=== PATIENT | female | born 1960 | race Caucasian/White ===

== ENCOUNTER 2017-04-04 16:14 | Observation (INO) | payer MEDICAID, SELFPAY ==
[2017-04-04] VITALS (9 sets, daily range): BP systolic 111–145; BP diastolic 66–91; PULSE 53–69; RESP 12–18; TEMP 36.5–36.7; O2SAT 97–98; BMI 29.6; BMI 29.5
--- NOTE | 2017-04-04 16:37 | CT_ITS ---
STUDY: CT BRAIN WITHOUT CONTRAST REASON FOR EXAM: Female, 56 years old. Intermittent visual disturbances RADIATION DOSAGE (If Supplied By Facility): CTDIvol = ( 44.99 ) mGy, DLP = ( 812.98 ) mGycm TECHNIQUE: Transaxial CT imaging of the brain was performed without administration of intravenous contrast material. Individualized dose optimization techniques were used for this CT. COMPARISON: None. FINDINGS: Normal soft tissue structures. Normal calvarium. Normal size ventricles and extra-axial spaces for the patient's age. Normal white matter tracts of the cerebral hemispheres. Normal basal ganglia and thalami. Normal brainstem. Normal cerebellum. There is no intracranial hemorrhage. There are no findings of an acute ischemic infarction. Normal visualized paranasal sinuses. CT/Brain/Head without Contrast IMPRESSION: Normal unenhanced CT scan of the brain. Electronically Signed: Chava Shoemaker DO at 17:24 EST Tel , Service support ,
--- NOTE | 2017-04-04 16:37 | EKG12_ITS ---
Test Reason : VISION CHANGES Blood Pressure : / mmHG Vent. Rate : 059 BPM Atrial Rate : 059 BPM P-R Int : 162 ms QRS Dur : 088 ms QT Int : 424 ms P-R-T Axes : 015 020 030 degrees QTc Int : 419 ms Sinus bradycardia Otherwise normal ECG Confirmed by LOUISE WINTERS MD ([id number]), editorial manager ALBERTO LEON ([id number] on 04/07/2017 8:41:59 AM Referred By: VICTOR M Confirmed By:LOUISE WINTERS MD
--- NOTE | 2017-04-04 16:52 | NURSING ---
NO OLD EKGS
[2017-04-04 17:01] LABS: Absolute Neutrophil Count 4.4 X10^3/uL (2.0-7.7); Basophil# 0.05 X10^3/uL; Basophil% 0.6 % (0-1); Eosinophil# 0.26 X10^3/uL; Eosinophils% 2.9 % (0-5); Hematocrit 42.5 % (37-47); Hemoglobin 15.2 g/dl (12.0-15.0); Lymphocyte % 42.2 % (19-41); Mean Corp Hgb Conc 35.8 g/gl (32-36); Mean Corpuscular Hgb 29.1 pg (27.0-32.0); Mean Corpuscular Volume 81.3 fL (81-99); Mean Platelet Vol. 9.6 fl (6.2-12.0); Monocyte# 0.52 X10^3/uL; Monocyte% 5.8 % (0-10); Neutrophil # 4.36 X10^3/uL (2.7-7.7); Neutrophil % 48.3 % (47-70); Platelet Count 243 K/mm3 (150-450); RBC Distribution Width CV 13.5 % (11.6-14.6); RBC Distribution Width SD 39.7 fl (35.1-43.9); Red Blood Count 5.23 M/mm3 (4.2-5.4)
[2017-04-04 17:09] LABS: POSITIVE COUNT NO; POSITIVE DIFFERENTIAL NO; POSITIVE MORPHOLOGY NO
--- NOTE | 2017-04-04 17:10 | RAD_ITS ---
STUDY: X-RAY CHEST REASON FOR EXAM: Female, 56 years old. Visual disturbances intermittently TECHNIQUE: Single AP portable view of the chest. COMPARISON: None. FINDINGS: The lungs are clear and expanded. There is no demonstrated pleural abnormality. Normal size heart. Normal mediastinum and dwaine. Normal visualized pulmonary arteries. Normal visualized aortic arch and descending thoracic aorta. Normal visualized thoracic spine. Normal visualized ribs, clavicles, and shoulders. There is no demonstrated abnormality of the visualized soft tissue structures of the upper abdomen. RAD/Chest 1 View IMPRESSION: Normal x-ray examination of the chest. Electronically Signed: Chava Shoemaker DO at 17:23 EST Tel , Service support ,
[2017-04-04 17:17] LABS: Prothrombin Time (Protime)PT. 13.1 SECONDS (11.7-14.9)
[2017-04-04 17:18] LABS: Partial Thromboplast Time 26.8 Seconds (24.1-36.2)
[2017-04-04 17:33] LABS: Anion Gap 6 (5-15); BUN 23 mg/dL (7-18); BUN/Creat Ratio 45.2 RATIO (10-20); Calcium,Total 9.1 mg/dL (8.5-10.1); Chloride 103 mmol/L (98-107); Creatinine, Serum 0.51 mg/dL (0.55-1.02); EST Glomerular Filtration Rate 132 mL/min (>60); Est Glom Filt Rate - Afr Amer 160 mL/min (>60); Estimated Creatinine Clearance 121.29 ml/min; Glucose 112 mg/dL (74-106); Potassium 3.8 mmol/L (3.5-5.1); Sodium Level 139 mmol/L (136-145)
--- NOTE | 2017-04-04 17:38 | ED.VISSUMM ---
- ER Visit Summary Date of Service: 04/04/17 Chief Complaint: Vision changes History of Present Illness: The patient is a 56 F who presents with transient intermittent visual changes. Her symptoms began this morning. Initially she had blurry vision in her left eye and then what she describes as a curtain or wall of santizo. This initially lasted about 3-4 hours. She did see her crate opener. She was told that she had some hemorrhages in the back of her eye but no clot. She does report she has a history of a clot in the eye. She denies history of stroke or myocardial infarction. She is not anticoagulated. He denies any other neurological symptoms such as weakness speech difficulty or numbness. He was scheduled for outpatient workup including carotid ultrasounds but has had 4 episodes of her left eye visual changes since leaving the crate opener's office was concerned to presented here. Physical Examination: Afebrile vitals are stable Moist mucous membranes Heart regular rate and rhythm Lungs are clear to auscultation Abdomen soft Alert and oriented with no focal or lateralizing neurological deficits, NIH stroke scale is 0 no visual field cut or visual changes at the time of examination Test Results: EKG shows sinus rhythm at a rate of 59. Chest x-ray and CT of the head are normal. CBC BMP INR troponin all normal. Emergency Department Course and Treatment: Patient's workup is unremarkable here however she does not describe classic symptoms of amaurosis fugax. I do believe she will require further workup. Given multiple episodes today I felt hospitalization most appropriate. Treatment Plan: [] Disposition: Admit Impression: Amaurosis fugax This note was generated with [employer] dictation software. It may contain incorrect words, spelling, and punctuation that were not noted in review of the chart prior to signing ED Disposition - Plan for ED Patient: Chief Complaint: Vision Prob Referrals: Carmen Myers, CAM-C [Primary Care Provider] -
--- NOTE | 2017-04-04 17:41 | ED.DCSUM_ITS ---
- ER Visit Summary Date of Service: 04/04/17 Chief Complaint: Vision changes History of Present Illness: The patient is a 56 F who presents with transient intermittent visual changes. Her symptoms began this morning. Initially she had blurry vision in her left eye and then what she describes as a curtain or wall of santizo. This initially lasted about 3-4 hours. She did see her sfdc architect. She was told that she had some hemorrhages in the back of her eye but no clot. She does report she has a history of a clot in the eye. She denies history of stroke or myocardial infarction. She is not anticoagulated. He denies any other neurological symptoms such as weakness speech difficulty or numbness. He was scheduled for outpatient workup including carotid ultrasounds but has had 4 episodes of her left eye visual changes since leaving the sfdc architect's office was concerned to presented here. Physical Examination: Afebrile vitals are stable Moist mucous membranes Heart regular rate and rhythm Lungs are clear to auscultation Abdomen soft Alert and oriented with no focal or lateralizing neurological deficits, NIH stroke scale is 0 no visual field cut or visual changes at the time of examination Test Results: EKG shows sinus rhythm at a rate of 59. Chest x-ray and CT of the head are normal. CBC BMP INR troponin all normal. Emergency Department Course and Treatment: Patient's workup is unremarkable here however she does not describe classic symptoms of amaurosis fugax. I do believe she will require further workup. Given multiple episodes today I felt hospitalization most appropriate. Treatment Plan: [] Disposition: Admit Impression: Amaurosis fugax This note was generated with [employer] dictation software. It may contain incorrect words, spelling, and punctuation that were not noted in review of the chart prior to signing ED Disposition - Plan for ED Patient: Chief Complaint: Vision Prob Referrals: Carmen Myers, CAM-C [Primary Care Provider] -
--- NOTE | 2017-04-04 18:48 | PCM.HP.STD ---
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 (3) Intravascular volume depletion Status: Acute (4) Pyelonephritis Status: Resolved (5) BMI greater than 40 Status: Resolved (6) DM2 (diabetes mellitus, type 2) Status: Chronic (7) Dyslipidemia Status: Chronic (8) Essential hypertension Status: Chronic History of Present Illness Date of Admission: 04/04/17 Chief Complaint: Transient but recurrent loss of vision left eye The patient is a 56 year old F with a past medical history of diabetes mellitus type 2, hypertension, hyperlipidemia and a remote occlusion of the left retinal artery who presented to the emergency room at [facility] on 04/04/2017 complaining of loss of vision in the left eye. She first noticed this on the day of admission. Her left eye suddenly became blurry and santizo. She could see light and dark. She was seen by her spare parts clerk in [place] and was told she had a few small spots of hemorrhage but she could find nothing else wrong. Her plan was to obtain carotid studies as an outpatient. Her vision had cleared at the spare parts clerk office and she went home. Once again she experienced a santizo curtain in front of her left eye and this lasts for approximately 1 hour at a time. In the emergency room her vision is clear. She denies any history of atrial fibrillation and also denies any history of hypercoagulable disorders. She has never had a DVT or PE. There is no family history of hypercoagulable disorders. She is para 9 8 with 1 miscarriage. She has had 8 C-sections. She denies headache and also denies any history of migraines in the past. CT brain was unremarkable. Chest x-ray showed no pulmonary vascular congestion, pleural effusions or infiltrates. There were no nodules or masses. Vital signs at presentation to the emergency room are temperature 97.7, pulse rate 69, blood pressure 145/91, respiratory rate 16 and she is 98% saturated on room air. Hemoglobin was mildly increased at 15.2 and the BUN was 23 with a creatinine of 0.51. Troponin was less than 0.02 and the EKG had normal sinus rhythm with no significant ST or T-wave changes. She was admitted to a monitored bed on PCU with a diagnosis of amaurosis fugax. Past Medical History Past Medical History (Chronic Problems): Chronic Problems Essential hypertension (Chronic) Dyslipidemia (Chronic) DM2 (diabetes mellitus, type 2) (Chronic) Allergies morphine Allergy (Verified 04/04/17 16:15) Chest tightness codeine Adverse Reaction (Verified 04/04/17 16:15) Vomiting Home Medications: Ambulatory Orders Medication Instructions Recorded Metoprolol Tartrate [Lopressor 25 mg PO DAILY 05/28/13 (beta eladio)] Pravastatin [Pravachol] 40 mg PO DAILY 05/28/13 Ergocalciferol [Vitamin D] 5,000 unit PO DAILY 08/19/13 Glipizide [Glipizide ER] 2.5 mg PO DAILY 04/04/17 Surgical History: cholecystectomy, - - 8 C-sections Psychiatric History: No pertinent psych hx 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 Denies: Double vision HEENT: Reports: - - No jaw claudication. Denies: Difficulty Hearing, Difficulty Swallowing, Eye Pain, Head Aches, Sinus Congestion, Sinus Drainage Cardiovascular: Denies: Chest Pain, Light Headedness, Orthopnea, Palpitations, Paroxysmal Noc. Dyspnea, Syncope Respiratory: Denies: Cough, Shortness of breath at rest, Sputum production Gastrointestinal: Denies: Abdominal Pain, Nausea, Vomiting Genitourinary: Denies: Dysuria Musculoskeletal: Denies: Joint Pain, Joint Tenderness Skin: Denies: Jaundice, Rash, Wounds Neurological: Reports: Blurred vision, - - No history of migraine cephalgia, no photophobia. Denies: Balance problems, Double vision, Change in Speech, Slurred speech, Confusion, Focal weakness, Tremor, Seizures Psychiatric: Denies: Anxiety, Depression, Homicidal Ideations, Suicidal Ideations Endocrine: Reports: Change in Body Habitus - She has lost 90 lbs in the past couple years - intentional Hematologic/ Lymphatic: Denies: Hx of blood clot VTE Information - Inpt Only VTE Present on Admission: No VTE Mechan Device Prophylaxis: None VTE Pharm Prophylaxis ordered?: No Reason prophylaxis not ordered:: Treatment Not Indicated Patient Problems: Active and Suspected Problems Amaurosis fugax of left eye (Acute) Intravascular volume depletion (Acute) - Physical Exam General: Alert, Oriented x3, Cooperative, No apparent distress, Well developed, Well nourished HEENT: Atraumatic, PERRLA, EOMI, Normocephalic Oral: Dry Mucosa Neck: Supple, No JVD, Negative Carotid Bruits, No Nodes, No Nuchal Rigidity, Trachea Midline, Thyroid Normal Size and Texture Lungs: Clear to auscultation, Normal air movement, No rhonchi, No wheeze, No rales Cardiovascular: Regular rate, Regular Rhythm, Normal S1, Normal S2, No murmurs, No Ectopic Activity, No rub noted, No Gallop Abdomen: Bowel Sounds Present, Soft, Non Tender, Non-Distended Extremities: No clubbing, No cyanosis, No edema, No Calf Tenderness, Peripheral Pulses Normal Skin: No rashes, No breakdown Musculoskeletal: No Muscle Wasting Neurological: Cranial nerves II-XII grossly intact, Neuro grossly intact Psych/Mental Status: Normal Affect, Appropriate Vital Signs Temp Pulse Resp BP Pulse Ox 97.7 F L 68 14 127/82 H 97 04/04/17 16:14 04/04/17 18:25 04/04/17 18:25 04/04/17 18:25 04/04/17 18:25 Oxygen Delivery Method Room Air Weight: 195 lb 1.745 oz Body Mass Index (BMI) 29.6 Laboratory Tests Past 24 Hrs 04/04/17 04/04/17 04/04/17 16:50 16:50 16:50 WBC 9.0 RBC 5.23 Hgb 15.2 H Hct 42.5 MCV 81.3 MCH 29.1 MCHC 35.8 RDW 13.5 RDW Differential 39.7 Plt Count 243 MPV 9.6 Immature Gran % (Auto) 0.200 Neut % (Auto) 48.3 Lymph % (Auto) 42.2 H [place] % (Auto) 5.8 Eos % (Auto) 2.9 Baso % (Auto) 0.6 Absolute Neuts (auto) 4.4 Absolute Lymphs (auto) 3.80 Total Counted Not Reportable PT 13.1 INR 1.0 APTT 26.8 Sodium 139 Potassium 3.8 Chloride 103 Carbon Dioxide 30.0 Anion Gap 6 BUN 23 H Creatinine 0.51 L Estim Creat Clear Calc 121.29 Est GFR (MDRD) Af Amer 160 Est GFR (MDRD) Non-Af 132 BUN/Creatinine Ratio 45.2 H Glucose 112 H Calcium 9.1 Troponin I < 0.02 Assessment/Plan Active and Suspected Problems Amaurosis fugax of left eye (Acute) Intravascular volume depletion (Acute) Impressions 1. Amaurosis fugax 2. Intravascular volume depletion with an elevated BUN/creatinine ratio of 45.2 3. Diabetes mellitus type 2 4. Hypertension 5. Hyperlipidemia CTA of the brain and neck now MRI of the brain in the AM ASA 81 mg daily HGBA1C Lipid panel in the AM Admitted to a monitored bed on PCU ECHO consult Dr. Maxwell ESR Hydrate recheck the lab in the AM Code Visit OBSV E&M: 71017 Initial observation care L3
--- NOTE | 2017-04-04 18:59 | HP.PCM_ITS ---
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 on 2017 complaining of loss of vision in the left eye. She first noticed this on the day of admission. Her left eye suddenly became blurry and santizo. She could see light and dark. She was seen by her macroeconomics professor in [place] and was told she had a few small spots of hemorrhage but she could find nothing else wrong. Her plan was to obtain carotid studies as an outpatient. Her vision had cleared at the macroeconomics professor office and she went home. Once again she experienced a santizo curtain in front of her left eye and this lasts for approximately 1 hour at a time. In the emergency room her vision is clear. She denies any history of atrial fibrillation and also denies any history of hypercoagulable disorders. She has never had a DVT or PE. There is no family history of hypercoagulable disorders. She is para 9 8 with 1 miscarriage. She has had 8 C-sections. She denies headache and also denies any history of migraines in the past. CT brain was unremarkable. Chest x-ray showed no pulmonary vascular congestion, pleural effusions or infiltrates. There were no nodules or masses. Vital signs at presentation to the emergency room are temperature 97.7, pulse rate 69, blood pressure 145/91, respiratory rate 16 and she is 98% saturated on room air. Hemoglobin was mildly increased at 15.2 and the BUN was 23 with a creatinine of 0.51. Troponin was less than 0.02 and the EKG had normal sinus rhythm with no significant ST or T-wave changes. She was admitted to a monitored bed on PCU with a diagnosis of amaurosis fugax. Past Medical History Past Medical History (Chronic Problems): Chronic Problems Essential hypertension (Chronic) Dyslipidemia (Chronic) DM2 (diabetes mellitus, type 2) (Chronic) Allergies morphine Allergy (Verified 04/04/17 16:15) Chest tightness codeine Adverse Reaction (Verified 04/04/17 16:15) Vomiting Home Medications: Ambulatory Orders Medication Instructions Recorded Metoprolol Tartrate [Lopressor 25 mg PO DAILY 05/28/13 (beta eladio)] Pravastatin [Pravachol] 40 mg PO DAILY 05/28/13 Ergocalciferol [Vitamin D] 5,000 unit PO DAILY 08/19/13 Glipizide [Glipizide ER] 2.5 mg PO DAILY 04/04/17 Surgical History: cholecystectomy, - - 8 C-sections Psychiatric History: No pertinent psych hx 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 Denies: Double vision HEENT: Reports: - - No jaw claudication. Denies: Difficulty Hearing, Difficulty Swallowing, Eye Pain, Head Aches, Sinus Congestion, Sinus Drainage Cardiovascular: Denies: Chest Pain, Light Headedness, Orthopnea, Palpitations, Paroxysmal Noc. Dyspnea, Syncope Respiratory: Denies: Cough, Shortness of breath at rest, Sputum production Gastrointestinal: Denies: Abdominal Pain, Nausea, Vomiting Genitourinary: Denies: Dysuria Musculoskeletal: Denies: Joint Pain, Joint Tenderness Skin: Denies: Jaundice, Rash, Wounds Neurological: Reports: Blurred vision, - - No history of migraine cephalgia, no photophobia. Denies: Balance problems, Double vision, Change in Speech, Slurred speech, Confusion, Focal weakness, Tremor, Seizures Psychiatric: Denies: Anxiety, Depression, Homicidal Ideations, Suicidal Ideations Endocrine: Reports: Change in Body Habitus - She has lost 90 lbs in the past couple years - intentional Hematologic/ Lymphatic: Denies: Hx of blood clot VTE Information - Inpt Only VTE Present on Admission: No VTE Mechan Device Prophylaxis: None VTE Pharm Prophylaxis ordered?: No Reason prophylaxis not ordered:: Treatment Not Indicated Patient Problems: Active and Suspected Problems Amaurosis fugax of left eye (Acute) Intravascular volume depletion (Acute) - Physical Exam General: Alert, Oriented x3, Cooperative, No apparent distress, Well developed, Well nourished HEENT: Atraumatic, PERRLA, EOMI, Normocephalic Oral: Dry Mucosa Neck: Supple, No JVD, Negative Carotid Bruits, No Nodes, No Nuchal Rigidity, Trachea Midline, Thyroid Normal Size and Texture Lungs: Clear to auscultation, Normal air movement, No rhonchi, No wheeze, No rales Cardiovascular: Regular rate, Regular Rhythm, Normal S1, Normal S2, No murmurs, No Ectopic Activity, No rub noted, No Gallop Abdomen: Bowel Sounds Present, Soft, Non Tender, Non-Distended Extremities: No clubbing, No cyanosis, No edema, No Calf Tenderness, Peripheral Pulses Normal Skin: No rashes, No breakdown Musculoskeletal: No Muscle Wasting Neurological: Cranial nerves II-XII grossly intact, Neuro grossly intact Psych/Mental Status: Normal Affect, Appropriate Vital Signs Temp Pulse Resp BP Pulse Ox 97.7 F L 68 14 127/82 H 97 04/04/17 16:14 04/04/17 18:25 04/04/17 18:25 04/04/17 18:25 04/04/17 18:25 Oxygen Delivery Method Room Air Weight: 195 lb 1.745 oz Body Mass Index (BMI) 29.6 Laboratory Tests Past 24 Hrs 04/04/17 04/04/17 04/04/17 16:50 16:50 16:50 WBC 9.0 RBC 5.23 Hgb 15.2 H Hct 42.5 MCV 81.3 MCH 29.1 MCHC 35.8 RDW 13.5 RDW Differential 39.7 Plt Count 243 MPV 9.6 Immature Gran % (Auto) 0.200 Neut % (Auto) 48.3 Lymph % (Auto) 42.2 H [place] % (Auto) 5.8 Eos % (Auto) 2.9 Baso % (Auto) 0.6 Absolute Neuts (auto) 4.4 Absolute Lymphs (auto) 3.80 Total Counted Not Reportable PT 13.1 INR 1.0 APTT 26.8 Sodium 139 Potassium 3.8 Chloride 103 Carbon Dioxide 30.0 Anion Gap 6 BUN 23 H Creatinine 0.51 L Estim Creat Clear Calc 121.29 Est GFR (MDRD) Af Amer 160 Est GFR (MDRD) Non-Af 132 BUN/Creatinine Ratio 45.2 H Glucose 112 H Calcium 9.1 Troponin I < 0.02 Assessment/Plan Active and Suspected Problems Amaurosis fugax of left eye (Acute) Intravascular volume depletion (Acute) Impressions 1. Amaurosis fugax 2. Intravascular volume depletion with an elevated BUN/creatinine ratio of 45.2 3. Diabetes mellitus type 2 4. Hypertension 5. Hyperlipidemia CTA of the brain and neck now MRI of the brain in the AM ASA 81 mg daily HGBA1C Lipid panel in the AM Admitted to a monitored bed on PCU ECHO consult Dr. Maxwell ESR Hydrate recheck the lab in the AM Code Visit OBSV E&M: [id number] Initial observation care L3
[2017-04-04] MEDS: 0.9% Normal Saline 1,000 ML 999 ML IV ×2 (19:01→20:24)
--- NOTE | 2017-04-04 19:46 | CT_ITS ---
STUDY: CTA OF THE NECK REASON FOR EXAM: Female, 56 years old. Amaurosis fugax RADIATION DOSAGE (If Supplied By Facility): CTDIvol = ( 24.91 ) mGy, DLP = ( 12.46 ) mGycm TECHNIQUE: CT angiography was performed with a multi-detector CT scanner. Data acquisition was obtained from the skull base through the vertex following intravenous administration of 75 ml of [id number]-370. MIP images were reconstructed from the axial data set. Post-processing of the angiographic images was performed, with multiplanar reformation and 3D reconstruction. Individualized dose optimization techniques were used for this CT. COMPARISON: None FINDINGS: The left subclavian artery, the left common carotid artery and the brachiocephalic arteries takeoff normally from the arch of the aorta. The left common carotid artery, the carotid bulb and the left internal and external carotid arteries are of normal morphology with no demonstration of any hemodynamically significant stenosis. No demonstration of any calcific atherosclerotic changes. The right common carotid artery, the right carotid bifurcation and in the right internal and external carotid arteries are normal in gross morphology with no demonstration of any hemodynamically significant stenosis. The entire vertebrobasilar circulation is normal CT/CTA Neck W/WO Contrast IMPRESSION: No evidence of a hemodynamically significant stenosis in either carotid system. The vertebral basilar circulation is also normal Electronically Signed: Harlan Cortez, at 23:00 EST Tel , Service support ,
--- NOTE | 2017-04-04 19:46 | CT_ITS ---
STUDY: CTA OF THE BRAIN REASON FOR EXAM: Female, 56 years old. Amaurosis fugax RADIATION DOSAGE (If Supplied By Facility): CTDIvol = ( 24.91 ) mGy, DLP = ( 12.46 ) mGycm TECHNIQUE: CT angiography was performed with a multi-detector CT scanner. Data acquisition was obtained from the skull base through the vertex following intravenous administration of ml of . MIP images were reconstructed from the axial data set. Post-processing of the angiographic images was performed, with multiplanar reformation and 3D reconstruction. Individualized dose optimization techniques were used for this CT. COMPARISON: None. FINDINGS: Normal bilateral petrous carotid arteries. Normal right cavernous carotid artery with a normal supraclinoid bifurcation. Normal left cavernous carotid artery with a normal supraclinoid bifurcation. Normal right A1 segments of the anterior cerebral artery. Normal left A1 segments of the anterior cerebral artery. Normal intact anterior communicating artery (ACOM). Normal bilateral A2 segments of the anterior cerebral arteries. Normal right M1 and M2 segments of the middle cerebral arteries, with a normal M1 bifurcation. Normal left M1 and M2 segments of the middle cerebral arteries, with a normal M1 bifurcation. Normal right posterior communicating artery (PCOM). Normal left posterior communicating artery (PCOM). Normal bilateral vertebral arteries. Normal basilar artery with a normal basilar bifurcation. The visualized bilateral superior cerebellar (SCA) arteries are normal. Normal bilateral P1, P2 and visualized P3 segments of the posterior cerebral arteries. There is no demonstrated aneurysm of the [place]. There is no demonstrated abnormality of the visualized brain. CT/CTA Head W/WO Contrast IMPRESSION: Normal [place] without a demonstrated aneurysm or hemodynamically significant stenosis. No evidence of any calcific atherosclerotic changes. Both globes are normal Electronically Signed: Harlan Cortez, at 22:52 EST Tel , Service support ,
[2017-04-04] MEDS: 0.9% Normal Saline 1,000 ML 75 ML IV (20:25)
[2017-04-04 20:54] LABS: Erythrocyte Sedimentation Rate 6 mm/hr (0-30)
[2017-04-04] MEDS: Aspirin 81 MG TAB.CHEW PO (21:53)
[2017-04-04] MEDS: Pravastatin 40 MG Tablet PO (21:55)
[2017-04-04 22:06] LABS: Bedside Glucose 107 mg/dL (70-110)
[2017-04-05] VITALS (9 sets, daily range): BP systolic 107–145; BP diastolic 51–67; PULSE 56–80; RESP 16–18; TEMP 36.4–36.6; O2SAT 93–97
[2017-04-05 05:45] LABS: ALB/GLOB Ratio 1.1 RATIO (0.9-2.4); AST(SGOT) 13 U/L (15-37); Alanine Aminotransfer ALT/SGPT 32 U/L (13-56); Albumin, Serum 3.4 g/dL (3.2-5.0); Alkaline Phosphatase 56 U/L (45-117); Anion Gap 8 (5-15); BUN 18 mg/dL (7-18); BUN/Creat Ratio 44.3 RATIO (10-20); Calcium,Total 8.7 mg/dL (8.5-10.1); Chloride 105 mmol/L (98-107); Cholesterol 138 mg/dL (200); Creatinine, Serum 0.41 mg/dL (0.55-1.02); EST Glomerular Filtration Rate 171 mL/min (>60); Est Glom Filt Rate - Afr Amer 207 mL/min (>60); Estimated Creatinine Clearance 150.88 ml/min; Globulin 3.2 g/dL (2.2-4.2); Glucose 85 mg/dL (74-106); High Density Lipoprotein 43 mg/dL; Phosphorus 3.6 mg/dL (2.5-4.9); Potassium 3.5 mmol/L (3.5-5.1); Protein, Total 6.6 g/dL (6.4-8.2); Sodium Level 140 mmol/L (136-145); Triglycerides 87 mg/dL; Very Low Density Lipoprotein 17 mg/dL (5-40)
[2017-04-05 07:06] LABS: Bedside Glucose 108 mg/dL (70-110)
[2017-04-05] MEDS: Aspirin 81 MG TAB.CHEW PO (07:33)
[2017-04-05] MEDS: 0.9% Normal Saline 1,000 ML 75 ML IV (10:27)
[2017-04-05 11:31] LABS: Bedside Glucose 105 mg/dL (70-110)
--- NOTE | 2017-04-05 11:35 | MRI_ITS ---
STUDY: MRI BRAIN WITH AND WITHOUT CONTRAST REASON FOR EXAM: Female, 56 years old. Left vision changes started yesterday. TECHNIQUE: Standardized multiplanar fat and water weighted pulse sequences were obtained. 9 ml of Gadavist contrast material was administered intravenously for the contrast portion of the examination. COMPARISON: CT head without contrast, CTA head with contrast 04/04/2017. FINDINGS: No restricted diffusion to suspect acute ischemic infarct. No focal signal abnormalities throughout the brain parenchyma. The santizo matter, white matter, ventricles and cisterns are normal. The thin sections through the orbits show normal and symmetric orbital globes, normal extraocular muscles, normal intraconal fat, normal lacrimal glands and normal optic nerves. Normal size of the ventricles and extra-axial spaces for the patient's age. Normal white matter tracts of the supratentorial brain. Normal bilateral basal ganglia. Normal thalami. There is no extra-axial fluid accumulation. Normal flow voids within the major intracranial circulation suggesting patency by spin echo criteria. Normal venous enhancement. There is no enhancing intra-axial or extra-axial abnormality. Normal sella turcica, pituitary gland, infundibular stalk, optic chiasm and hypothalamus. Normal tectal plate and pineal gland. Normal midbrain, yuri and medulla. Normal cerebellum. Normal basal cisterns. Normal bilateral temporal bones. Normal bilateral internal auditory canals. No demonstrated orbital abnormality, within the constraints of a routine brain study. Normal visualized paranasal sinuses. Normal calvarium and skull base. Normal visualized soft tissue structures. Normal visualized upper cervical spine. MRI/Brain W/WO Contrast IMPRESSION: Normal unenhanced and enhanced MRI of the brain and orbits. Electronically Signed: Miguel Murray MD at 16:01 EST , Service support ,
--- NOTE | 2017-04-05 13:06 | PCM.DC ---
- Discharge Diagnoses Current Active Problems: Current Active and Chronic Problems Amaurosis fugax of left eye (Acute) Intravascular volume depletion (Acute) You will use the following diet at home:: Calorie/Carbohydrate Controlled (specify 1200, 1400, etc) Discharge Activity: Return to Normal Activity Call your doctor if you observe: Numbness or Tingling, Dizziness, Fainting spells, Chest pain, Increased palpitations (irregular heartbeat) Allergies/Adverse Reactions: Allergies morphine Allergy (Verified 04/04/17 16:15) Chest tightness codeine Adverse Reaction (Verified 04/04/17 16:15) Vomiting Medications to take at Discharge Metoprolol Tartrate [Lopressor (beta eladio)] 25 mg PO DAILY 05/28/13 Pravastatin [Pravachol] 40 mg PO DAILY 05/28/13 Ergocalciferol [Vitamin D] 5,000 unit PO DAILY 08/19/13 Glipizide [Glipizide ER] 2.5 mg PO DAILY 04/04/17 Aspirin [Aspirin, Baby] 81 mg PO DAILY@0800 #30 tab.chew 04/05/17 The following prescriptions were given: Aspirin [Aspirin, Baby] 81 mg PO DAILY@0800 #30 tab.chew Primary Care Physician: Carmen Myers NP-C [Primary Care Provider] - Please follow up with your Primary Care Physician in: 1-2 Weeks Please Follow Up With: Opthamology When: Call office this week. Proposed Discharge Date: 04/05/17
--- NOTE | 2017-04-05 13:09 | DCINST_ITS ---
- Discharge Diagnoses Current Active Problems: Current Active and Chronic Problems Amaurosis fugax of left eye (Acute) Intravascular volume depletion (Acute) You will use the following diet at home:: Calorie/Carbohydrate Controlled ( specify 1200, 1400, etc) Discharge Activity: Return to Normal Activity Call your doctor if you observe: Numbness or Tingling, Dizziness, Fainting spells, Chest pain, Increased palpitations (irregular heartbeat) Allergies/Adverse Reactions: Allergies morphine Allergy (Verified 04/04/17 16:15) Chest tightness codeine Adverse Reaction (Verified 04/04/17 16:15) Vomiting Medications to take at Discharge Metoprolol Tartrate [Lopressor (beta eladio)] 25 mg PO DAILY 05/28/13 Pravastatin [Pravachol] 40 mg PO DAILY 05/28/13 Ergocalciferol [Vitamin D] 5,000 unit PO DAILY 08/19/13 Glipizide [Glipizide ER] 2.5 mg PO DAILY 04/04/17 Aspirin [Aspirin, Baby] 81 mg PO DAILY@0800 #30 tab.chew 04/05/17 The following prescriptions were given: Aspirin [Aspirin, Baby] 81 mg PO DAILY@0800 #30 tab.chew Primary Care Physician: Carmen Myers NP-C [Primary Care Provider] - Please follow up with your Primary Care Physician in: 1-2 Weeks Please Follow Up With: Opthamology When: Call office this week. Proposed Discharge Date: 04/05/17
--- NOTE | 2017-04-05 13:09 | PCM.DC.SUM ---
Discharge Date and Diagnosis - Problem List Patient Problems: Active and Suspected Problems Amaurosis fugax of left eye (Acute) Intravascular volume depletion (Acute) Date of Admission: 04/04/17 Date of Discharge: 04/05/17 - Primary Discharge Diagnosis Active and Suspected Problems Amaurosis fugax of left eye (Acute) Intravascular volume depletion (Acute) - Secondary Discharge Diagnosis Chronic Problems Essential hypertension (Chronic) Dyslipidemia (Chronic) DM2 (diabetes mellitus, type 2) (Chronic) Hospital Course and Treatment Imaging Results: Diagnostic Data Brain CT 04/04/17 16:37 IMPRESSION: Normal unenhanced CT scan of the brain. Electronically Signed: Chava Shoemaker DO at 17:24 EST Tel , Service support , Chest X-Ray 04/04/17 17:10 IMPRESSION: Normal x-ray examination of the chest. Electronically Signed: Chava Shoemaker DO at 17:23 EST Tel , Service support , Head CTA 04/04/17 19:46 IMPRESSION: Normal [place] without a demonstrated aneurysm or hemodynamically significant stenosis. No evidence of any calcific atherosclerotic changes. Both globes are normal Electronically Signed: Harlan Cortez, at 22:52 EST Tel , Service support , Neck CTA 04/04/17 19:46 IMPRESSION: No evidence of a hemodynamically significant stenosis in either carotid system. The vertebral basilar circulation is also normal Electronically Signed: Harlan Cortez, at 23:00 EST Tel , Service support , Dr. Maxwell- Neurology Operations: None Procedures: None Summary of Care Provided: The patient is a 56 year old F who presented to the ER 04/04/17 due to transient but recurrent loss of vision left eye. She has a past medical history of diabetes mellitus type 2, hypertension, hyperlipidemia and a remote occlusion of the left retinal artery. Patient denies history of blood clot, clotting disorder or family history of clotting disorder. Denies history of irregular heart rhythm. Brain CT normal. Chest x-ray unremarkable. CT of brain without aneurysm or hemodynamically significant stenosis. No evidence of arthrosclerotic changes. Next CTA showed no evidence of stenosis of the carotid arteries. MRI pending and will be reviewed prior to discharge. Neurology assessed patient. No concern for acute abnormalities. Recommend echocardiogram as outpatient to be ordered by primary care provider. Patient reports her recent hemoglobin A1c was 5.7%. Lipids within good control. Troponin negative. Patient received IV fluids for intravascular volume depletion. Other chronic medical conditions stable at this time. Recommend follow-up with ophthalmology as outpatient. Patient was started on aspirin 81 mg daily. Patient was seen and examined prior to discharge. Heart rate regular rate and rhythm. Lungs clear. Abdomen soft, nontender. Neuro grossly intact. Vitals stable. Patient denies further vision changes. Denies headache, numbness, tingling. Stable for discharge home to follow-up with ophthalmology. This patient was seen by ANTOINE Cisneros under the supervision of Dr. Dobson. Discharge Diet: Carb Control Diet Discharge Activity: Return to Normal Activity Call your doctor if you observe: Numbness or Tingling, Dizziness, Fainting spells, Chest pain, Increased palpitations (irregular heartbeat) Home Medications: Medications to take at Discharge Metoprolol Tartrate [Lopressor (beta eladio)] 25 mg PO DAILY 05/28/13 Pravastatin [Pravachol] 40 mg PO DAILY 05/28/13 Ergocalciferol [Vitamin D] 5,000 unit PO DAILY 08/19/13 Glipizide [Glipizide ER] 2.5 mg PO DAILY 04/04/17 Aspirin [Aspirin, Baby] 81 mg PO DAILY@0800 #30 tab.chew 04/05/17 Following Prescrptions Were Given to Patient: Aspirin [Aspirin, Baby] 81 mg PO DAILY@0800 #30 tab.chew Primary Care Physician: Carmen Myers NP-C [Primary Care Provider] - Please follow up with your Primary Care Physician in: 1-2 Weeks Please Follow Up With: Opthamology When: Call office this week. Disposition: Home Minutes spent on discharge:: 35 Patient Condition:: Stable Meaningful Use Info Meaningful Use Diagnoses (Choose all that apply): None applicable
--- NOTE | 2017-04-05 13:17 | DS.PCM_ITS ---
Discharge Date and Diagnosis - Problem List Patient Problems: Active and Suspected Problems Amaurosis fugax of left eye (Acute) Intravascular volume depletion (Acute) Date of Admission: 04/04/17 Date of Discharge: 04/05/17 - Primary Discharge Diagnosis Active and Suspected Problems Amaurosis fugax of left eye (Acute) Intravascular volume depletion (Acute) - Secondary Discharge Diagnosis Chronic Problems Essential hypertension (Chronic) Dyslipidemia (Chronic) DM2 (diabetes mellitus, type 2) (Chronic) Hospital Course and Treatment Imaging Results: Diagnostic Data Brain CT 04/04/17 16:37 IMPRESSION: Normal unenhanced CT scan of the brain. Electronically Signed: Chava Shoemaker DO at 17:24 EST Tel , Service support , Chest X-Ray 04/04/17 17:10 IMPRESSION: Normal x-ray examination of the chest. Electronically Signed: Chava Shoemaker DO at 17:23 EST Tel , Service support , Head CTA 04/04/17 19:46 IMPRESSION: Normal [place] without a demonstrated aneurysm or hemodynamically significant stenosis. No evidence of any calcific atherosclerotic changes. Both globes are normal Electronically Signed: Harlan Cortez, at 22:52 EST Tel , Service support , Neck CTA 04/04/17 19:46 IMPRESSION: No evidence of a hemodynamically significant stenosis in either carotid system. The vertebral basilar circulation is also normal Electronically Signed: Harlan Cortez, at 23:00 EST Tel , Service support , Dr. Maxwell- Neurology Operations: None Procedures: None Summary of Care Provided: The patient is a 56 year old F who presented to the ER 04/04/17 due to transient but recurrent loss of vision left eye. She has a past medical history of diabetes mellitus type 2, hypertension, hyperlipidemia and a remote occlusion of the left retinal artery. Patient denies history of blood clot, clotting disorder or family history of clotting disorder. Denies history of irregular heart rhythm. Brain CT normal. Chest x-ray unremarkable. CT of brain without aneurysm or hemodynamically significant stenosis. No evidence of arthrosclerotic changes. Next CTA showed no evidence of stenosis of the carotid arteries. MRI pending and will be reviewed prior to discharge. Neurology assessed patient. No concern for acute abnormalities. Recommend echocardiogram as outpatient to be ordered by primary care provider. Patient reports her recent hemoglobin A1c was 5.7%. Lipids within good control. Troponin negative. Patient received IV fluids for intravascular volume depletion. Other chronic medical conditions stable at this time. Recommend follow-up with ophthalmology as outpatient. Patient was started on aspirin 81 mg daily. Patient was seen and examined prior to discharge. Heart rate regular rate and rhythm. Lungs clear. Abdomen soft, nontender. Neuro grossly intact. Vitals stable. Patient denies further vision changes. Denies headache , numbness, tingling. Stable for discharge home to follow-up with ophthalmology. This patient was seen by ANTOINE Cisneros under the supervision of Dr. Dobson. Discharge Diet: Carb Control Diet Discharge Activity: Return to Normal Activity Call your doctor if you observe: Numbness or Tingling, Dizziness, Fainting spells, Chest pain, Increased palpitations (irregular heartbeat) Home Medications: Medications to take at Discharge Metoprolol Tartrate [Lopressor (beta eladio)] 25 mg PO DAILY 05/28/13 Pravastatin [Pravachol] 40 mg PO DAILY 05/28/13 Ergocalciferol [Vitamin D] 5,000 unit PO DAILY 08/19/13 Glipizide [Glipizide ER] 2.5 mg PO DAILY 04/04/17 Aspirin [Aspirin, Baby] 81 mg PO DAILY@0800 #30 tab.chew 04/05/17 Following Prescrptions Were Given to Patient: Aspirin [Aspirin, Baby] 81 mg PO DAILY@0800 #30 tab.chew Primary Care Physician: Carmen Myers NP-C [Primary Care Provider] - Please follow up with your Primary Care Physician in: 1-2 Weeks Please Follow Up With: Opthamology When: Call office this week. Disposition: Home Minutes spent on discharge:: 35 Patient Condition:: Stable Meaningful Use Info Meaningful Use Diagnoses (Choose all that apply): None applicable
--- NOTE | 2017-04-05 15:13 | PCM.CONS.GEN ---
Problem List (1) Amaurosis fugax of left eye Status: Acute Reason for Consult Date of Consultation: 04/05/17 Reason for Consultation: Amaurosis Fugax/TIA History of Present Illness: The patient is a 56 year old CF with PMH HTN, HLD, DM, H/O CRAO admitted with episodes of blurred vision in the left eye since yesterday (04/04/17). Per patient yesterday morning (04/04/17) patient had acute onset blurred vision, with greyish images in front of her left eye, she went to her city collector who saw some hemorrhagic changes in the retina, had advised carotid ultrasound with follow up early next week, her vision completely improved in about 3 hours, then when she was driving home she had the second episode of blurred vision in front of the left eye, she felt as if there is something solid like a curtain in front of her left eye, lasted for about an hour before improving, then later had 2 more episodes but lasted only about 20 minutes. Denies any SHIELDS, visual disturbance, speech disturbances, focal motor weakness, or sensory loss. Lives with , does not use cane or walker to ambulate, denies any frequent falls, does not need any assistance for her ADLs, does drive. Per patient she does not take ASA everyday at baseline. [] Past Medical History Past Medical History (Chronic Problems): Chronic Problems Essential hypertension (Chronic) Dyslipidemia (Chronic) DM2 (diabetes mellitus, type 2) (Chronic) Allergies morphine Allergy (Verified 04/04/17 16:15) Chest tightness codeine Adverse Reaction (Verified 04/04/17 16:15) Vomiting Home Medications: Ambulatory Orders Medication Instructions Recorded Metoprolol Tartrate [Lopressor 25 mg PO DAILY 05/28/13 (beta eladio)] Pravastatin [Pravachol] 40 mg PO DAILY 05/28/13 Ergocalciferol [Vitamin D] 5,000 unit PO DAILY 08/19/13 Glipizide [Glipizide ER] 2.5 mg PO DAILY 04/04/17 Aspirin [Aspirin, Baby] 81 mg PO DAILY@0800 #30 tab.chew 04/05/17 Surgical History: cholecystectomy, - - 8 C-sections Psychiatric History: No pertinent psych hx [employer] History: No pertinent [employer] history Lives: Spouse/ Significant Other, With Family Smoking Status: Never smoker Tobacco Use: Non-smoker Alcohol: None Drugs: None - *Family History Maternal History Items: Diabetes, Hypertension, - - Her mother had atrial fibrillation Paternal History Items: Diabetes, Hypertension Review of Systems Constitutional: Reports: - - complete ROS negative except as documented in HPI Patient Problems: Active and Suspected Problems Amaurosis fugax of left eye (Acute) Intravascular volume depletion (Acute) - Physical Exam General: Alert, Oriented x3, Cooperative HEENT: Atraumatic, PERRLA, EOMI, Normocephalic Neck: Supple, No JVD, Negative Carotid Bruits Lungs: Clear to auscultation, Normal air movement Cardiovascular: Regular rate, No murmurs Abdomen: Bowel Sounds Present, Soft, Non Tender Extremities: No edema, Capillary Refill Less than 3 Seconds Skin: No rashes, No breakdown Musculoskeletal: No Tenderness to Palpation of Joints or Extremities Neurological: Cranial nerves II-XII grossly intact, Deep Tendon Reflexes 2+/4 and Symmetrical, Neuro grossly intact, Motor Exam 5/5 strength throughout, Muscle tone normal, Sensory exam intact to light touch and pain, Coordination normal, - - NIHSS 0 Psych/Mental Status: Normal Affect, Appropriate Vital Signs Temp Pulse Resp BP Pulse Ox 97.8 F 70 16 145/67 H 97 04/05/17 12:00 04/05/17 12:00 04/05/17 12:00 04/05/17 12:00 04/05/17 12:00 Oxygen Delivery Method Room Air Weight: 88.2 kg Body Mass Index (BMI) 29.5 Intake and Output for Last 24 Hours 04/03/17 04/04/17 04/05/17 23:59 23:59 23:59 Intake Total 800 / 800 1342 / 1342 Balance 800 / 800 1342 / 1342 Laboratory Tests Past 24 Hrs 04/05/17 04:16 Sodium 140 Potassium 3.5 Chloride 105 Carbon Dioxide 27.0 Anion Gap 8 BUN 18 Creatinine 0.41 L Estim Creat Clear Calc 150.88 Est GFR (MDRD) Af Amer 207 Est GFR (MDRD) Non-Af 171 BUN/Creatinine Ratio 44.3 H Glucose 85 Calcium 8.7 Phosphorus 3.6 Magnesium 2.0 Total Bilirubin 1.20 H AST 13 L ALT 32 Alkaline Phosphatase 56 Total Protein 6.6 Albumin 3.4 Globulin 3.2 Albumin/Globulin Ratio 1.1 Triglycerides 87 Cholesterol 138 LDL Cholesterol 78 VLDL Cholesterol 17 HDL Cholesterol 43 POC Glucose 04/05/17 04/05/17 04/04/17 11:26 06:57 22:02 POC Glucose 105 108 107 Assessment/Plan Active and Suspected Problems Amaurosis fugax of left eye (Acute) Intravascular volume depletion (Acute) The patient is a 56 year old CF with PMH HTN, HLD, DM, H/O CRAO admitted with episodes of blurred vision in the left eye since yesterday (04/04/17). Per patient yesterday morning (04/04/17) patient had acute onset blurred vision, with greyish images in front of her left eye, she went to her city collector who saw some hemorrhagic changes in the retina, had advised carotid ultrasound with follow up early next week, her vision completely improved in about 3 hours, then when she was driving home she had the second episode of blurred vision in front of the left eye, she felt as if there is something solid like a curtain in front of her left eye, lasted for about an hour before improving, then later had 2 more episodes but lasted only about 20 minutes. Denies any SHIELDS, visual disturbance, speech disturbances, focal motor weakness, or sensory loss. Lives with , does not use cane or walker to ambulate, denies any frequent falls, does not need any assistance for her ADLs, does drive. Per patient she does not take ASA everyday at baseline. Impression Amaurosis Fugax left eye/TIA Impression -CT head on admission nothing acute -CTA head/neck- images reviewed- no hemodynamic significant stenosis or occlusion -MRI brain images reviewed- awaiting final radiology read -Continue ASA and statins -Recommend TTE, Hba1c -LDL-78 -GI/DVT prophylaxis -PT/OT -Fall precautions -Follow up with Neurology in 2-3 weeks as outpatient. -Please call with questions if any -Thank you for allowing us to participate in patient's care and management I spent 60 minutes taking history, doing physical examination, reviewing medical records, coordinating care and counseling the patient. Code Visit Inpatient E&M: [id number] Init Hosp L3
--- NOTE | 2017-04-05 15:25 | CON.PCM_ITS ---
Problem List (1) Amaurosis fugax of left eye Status: Acute Reason for Consult Date of Consultation: 04/05/17 Reason for Consultation: Amaurosis Fugax/TIA History of Present Illness: The patient is a 56 year old CF with PMH HTN, HLD, DM, H/O CRAO admitted with episodes of blurred vision in the left eye since yesterday (04/04/17). Per patient yesterday morning (04/04/17) patient had acute onset blurred vision, with greyish images in front of her left eye, she went to her turfgrass technician who saw some hemorrhagic changes in the retina, had advised carotid ultrasound with follow up early next week, her vision completely improved in about 3 hours, then when she was driving home she had the second episode of blurred vision in front of the left eye, she felt as if there is something solid like a curtain in front of her left eye, lasted for about an hour before improving, then later had 2 more episodes but lasted only about 20 minutes. Denies any SHIELDS, visual disturbance, speech disturbances, focal motor weakness, or sensory loss. Lives with , does not use cane or walker to ambulate, denies any frequent falls , does not need any assistance for her ADLs, does drive. Per patient she does not take ASA everyday at baseline. [] Past Medical History Past Medical History (Chronic Problems): Chronic Problems Essential hypertension (Chronic) Dyslipidemia (Chronic) DM2 (diabetes mellitus, type 2) (Chronic) Allergies morphine Allergy (Verified 04/04/17 16:15) Chest tightness codeine Adverse Reaction (Verified 04/04/17 16:15) Vomiting Home Medications: Ambulatory Orders Medication Instructions Recorded Metoprolol Tartrate [Lopressor 25 mg PO DAILY 05/28/13 (beta eladio)] Pravastatin [Pravachol] 40 mg PO DAILY 05/28/13 Ergocalciferol [Vitamin D] 5,000 unit PO DAILY 08/19/13 Glipizide [Glipizide ER] 2.5 mg PO DAILY 04/04/17 Aspirin [Aspirin, Baby] 81 mg PO DAILY@0800 #30 tab.chew 04/05/17 Surgical History: cholecystectomy, - - 8 C-sections Psychiatric History: No pertinent psych hx MICA LAYER History: No pertinent MICA LAYER history Lives: Spouse/ Significant Other, With Family Smoking Status: Never smoker Tobacco Use: Non-smoker Alcohol: None Drugs: None - *Family History Maternal History Items: Diabetes, Hypertension, - - Her mother had atrial fibrillation Paternal History Items: Diabetes, Hypertension Review of Systems Constitutional: Reports: - - complete ROS negative except as documented in HPI Patient Problems: Active and Suspected Problems Amaurosis fugax of left eye (Acute) Intravascular volume depletion (Acute) - Physical Exam General: Alert, Oriented x3, Cooperative HEENT: Atraumatic, PERRLA, EOMI, Normocephalic Neck: Supple, No JVD, Negative Carotid Bruits Lungs: Clear to auscultation, Normal air movement Cardiovascular: Regular rate, No murmurs Abdomen: Bowel Sounds Present, Soft, Non Tender Extremities: No edema, Capillary Refill Less than 3 Seconds Skin: No rashes, No breakdown Musculoskeletal: No Tenderness to Palpation of Joints or Extremities Neurological: Cranial nerves II-XII grossly intact, Deep Tendon Reflexes 2+/4 and Symmetrical, Neuro grossly intact, Motor Exam 5/5 strength throughout, Muscle tone normal, Sensory exam intact to light touch and pain, Coordination normal, - - NIHSS 0 Psych/Mental Status: Normal Affect, Appropriate Vital Signs Temp Pulse Resp BP Pulse Ox 97.8 F 70 16 145/67 H 97 04/05/17 12:00 04/05/17 12:00 04/05/17 12:00 04/05/17 12:00 04/05/17 12:00 Oxygen Delivery Method Room Air Weight: 88.2 kg Body Mass Index (BMI) 29.5 Intake and Output for Last 24 Hours 04/03/17 04/04/17 04/05/17 23:59 23:59 23:59 Intake Total 800 / 800 1342 / 1342 Balance 800 / 800 1342 / 1342 Laboratory Tests Past 24 Hrs 04/05/17 04:16 Sodium 140 Potassium 3.5 Chloride 105 Carbon Dioxide 27.0 Anion Gap 8 BUN 18 Creatinine 0.41 L Estim Creat Clear Calc 150.88 Est GFR (MDRD) Af Amer 207 Est GFR (MDRD) Non-Af 171 BUN/Creatinine Ratio 44.3 H Glucose 85 Calcium 8.7 Phosphorus 3.6 Magnesium 2.0 Total Bilirubin 1.20 H AST 13 L ALT 32 Alkaline Phosphatase 56 Total Protein 6.6 Albumin 3.4 Globulin 3.2 Albumin/Globulin Ratio 1.1 Triglycerides 87 Cholesterol 138 LDL Cholesterol 78 VLDL Cholesterol 17 HDL Cholesterol 43 POC Glucose 04/05/17 04/05/17 04/04/17 11:26 06:57 22:02 POC Glucose 105 108 107 Assessment/Plan Active and Suspected Problems Amaurosis fugax of left eye (Acute) Intravascular volume depletion (Acute) The patient is a 56 year old CF with PMH HTN, HLD, DM, H/O CRAO admitted with episodes of blurred vision in the left eye since yesterday (04/04/17). Per patient yesterday morning (04/04/17) patient had acute onset blurred vision, with greyish images in front of her left eye, she went to her turfgrass technician who saw some hemorrhagic changes in the retina, had advised carotid ultrasound with follow up early next week, her vision completely improved in about 3 hours, then when she was driving home she had the second episode of blurred vision in front of the left eye, she felt as if there is something solid like a curtain in front of her left eye, lasted for about an hour before improving, then later had 2 more episodes but lasted only about 20 minutes. Denies any SHIELDS, visual disturbance, speech disturbances, focal motor weakness, or sensory loss. Lives with , does not use cane or walker to ambulate, denies any frequent falls , does not need any assistance for her ADLs, does drive. Per patient she does not take ASA everyday at baseline. Impression Amaurosis Fugax left eye/TIA Impression -CT head on admission nothing acute -CTA head/neck- images reviewed- no hemodynamic significant stenosis or occlusion -MRI brain images reviewed- awaiting final radiology read -Continue ASA and statins -Recommend TTE, Hba1c -LDL-78 -GI/DVT prophylaxis -PT/OT -Fall precautions -Follow up with Neurology in 2-3 weeks as outpatient. -Please call with questions if any -Thank you for allowing us to participate in patient's care and management I spent 60 minutes taking history, doing physical examination, reviewing medical records, coordinating care and counseling the patient. Code Visit Inpatient E&M: 63687 Init Hosp L3
== END 2017-04-05 13:08 | disposition home or self-care (01) ==
LOC: ED 18:01 → PCU 19:08
PROVIDERS: Admitting Provider Internal Medicine; Emergency Provider Emergency Medicine; Family Provider Nurse Practitioner Family; PCP Nurse Practitioner Family; Visit Provider Internal Medicine
DX: G45.3 Amaurosis fugax (principal); E78.5 Hyperlipidemia, unspecified; I10 Essential (primary) hypertension; E11.9 Type 2 diabetes mellitus without complications; Z79.899 Other long term (current) drug therapy; Z79.82 Long term (current) use of aspirin
CPT/HCPCS: 36415; 70450; 70496; 70498; 70553; 71045; 80048; 80053; 80061; 82962; 83735; 84100; 84484; 85025; 85610; 85652; 85730; 93005; 96360; 96361; 96372; 99218; 99285; A9585; J7030; Q9967; A4216; G0378

== ENCOUNTER 2017-09-20 22:06 | Emergency (ER) | payer MEDICAID, SELFPAY ==
[2017-09-20 22:07] VITALS: BP 153/75; PULSE 68; RESP 18; TEMP 36.7; O2SAT 97; BMI 29.6
--- NOTE | 2017-09-20 22:24 | ED.VISSUMM ---
- ER Visit Summary Date of Service: 09/20/17 Chief Complaint: Redness of right second toe History of Present Illness: The patient is a 56 F presents to the emergency department with redness of the right second toe. Patient states that about a week ago, she cut her nails. She states that lately she may have cut her second toenail a little too short. She has been at a [employer] camp a week. States on Thursday, she noted some blood from the tip of her toe. Over the past 2 days, she has had some increasing redness. She denies any purulent drainage. She denies any significant pain. The patient is a non-insulin dependent diabetic. She denies any history of neuropathy. She states that she was concerned with the redness of the toe and wanted to be evaluated. She denies any history of prior foot infection. Again, she is only had symptoms for 2 days. Physical Examination: Exam is relatively unremarkable. Patient does have ingrown toenail of the right second that was cut rather short. I was able to remove the skin. There is no purulent drainage. There is some mild surrounding cellulitis. Cap refill is less than 2 seconds. Sensation is preserved to light touch. There is no lymphangitic streaking. Pulses and foot are normal. Test Results: [] Emergency Department Course and Treatment: The patient presents with toenail infection likely secondary from ingrown toenail. I do not feel that this needs resected at this time especially given how short it is. The patient will continue soaks. She will be placed on oral antibiotics. I will give her Augmentin and Bactrim. I will give her outpatient podiatry follow-up within the next 2 days. She is comfortable this plan of care will be discharged home. Treatment Plan: [] Disposition: Discharge Impression: 1. Right second toenail ingrown with cellulitis This note was generated with [employer] dictation software. It may contain incorrect words, spelling, and punctuation that were not noted in review of the chart prior to signing ED Disposition - Plan for ED Patient: Chief Complaint: Cellulitis Instructions: ED Toenail Ingrown Infec Abx Onl Prescriptions: Amox/Clavulanate Tablet [Augmentin Tablet] 875 mg PO Q12H #20 tab Smz/Tmp Ds [Bactrim Ds] 1 tab PO BID #14 tab Referrals: Ede Katz DPM [STAFF PHYSICIAN] - 2 Days for wound check
[2017-09-20] MEDS: Amox/Clavulanate 875 MG Tablet PO (22:32)
[2017-09-20] MEDS: Smz/Tmp Ds Tablet 1 TABLET PO (22:32)
[2017-09-20 22:33] VITALS: PULSE 68; RESP 14; O2SAT 98
== END 2017-09-20 22:34 | disposition home or self-care (01) ==
LOC: ED 22:21
PROVIDERS: Emergency Provider Emergency Medicine; Family Provider Nurse Practitioner Family; PCP Nurse Practitioner Family
DX: L60.0 Ingrowing nail (principal); L03.031 Cellulitis of right toe; B96.89 Other specified bacterial agents as the cause of diseases classified elsewhere; E11.9 Type 2 diabetes mellitus without complications; I10 Essential (primary) hypertension; E78.00 Pure hypercholesterolemia, unspecified; Z79.82 Long term (current) use of aspirin; Z79.84 Long term (current) use of oral hypoglycemic drugs; Z79.899 Other long term (current) drug therapy
CPT/HCPCS: 99283

== ENCOUNTER 2018-03-03 18:23 | Emergency (ER) | payer MEDICAID, SELFPAY ==
[2018-03-03 18:23] VITALS: BMI 29.5
[2018-03-03 18:25] VITALS: BP 165/99; PULSE 73; RESP 18; TEMP 36.9; O2SAT 98; BMI 30.4
--- NOTE | 2018-03-03 18:27 | EKG12_ITS ---
Test Reason : PALPITATIONS Blood Pressure : / mmHG Vent. Rate : 064 BPM Atrial Rate : 064 BPM P-R Int : 154 ms QRS Dur : 088 ms QT Int : 410 ms P-R-T Axes : 060 035 033 degrees QTc Int : 422 ms Normal sinus rhythm Normal ECG Confirmed by MAUREEN RUFFIN, YUDY ([id number]), editor book ALBERTO LEON ([id number]) on 03/05/2018 2:27:28 PM Referred By: ER PHYS Confirmed By:YUDY REDDY MD
--- NOTE | 2018-03-03 18:51 | RAD_ITS ---
STUDY: X-RAY CHEST REASON FOR EXAM: Female, 57 years old. Chest pain, shortness of breath TECHNIQUE: Single frontal view COMPARISON: April 04, 2017 FINDINGS: The lungs are clear and expanded. There is no demonstrated pleural abnormality. Normal size heart. Normal mediastinum and dwaine. Normal visualized pulmonary arteries. Normal visualized aortic arch and descending thoracic aorta. Degenerative changes of the visualized thoracic spine. Degenerative changes of the shoulders. There is no demonstrated abnormality of the visualized soft tissue structures of the upper abdomen. RAD/Chest 1 View (Portable) IMPRESSION: Normal x-ray examination of the chest. Electronically Signed: Miles Khan DO at 19:42 EST Tel [phone], Service support ,
[2018-03-03 19:20] LABS: Absolute Lymphocyte Count 2.97 X10^3/ul (0.83-4.51); Absolute Neutrophil Count 6.5 X10^3/uL (2.0-7.7); Basophil# 0.03 X10^3/uL; Basophil% 0.3 % (0-1); Eosinophils% 2.9 % (0-5); Hematocrit 43.1 % (37-47); Hemoglobin 14.5 g/dl (12.0-15.0); Lymphocyte # 2.97 X10^3/ul (4.0); Lymphocyte % 28.6 % (19-41); Mean Corp Hgb Conc 33.6 g/gl (32-36); Mean Corpuscular Hgb 27.4 pg (27.0-32.0); Mean Corpuscular Volume 81.3 fL (81-99); Mean Platelet Vol. 9.4 fl (6.2-12.0); Monocyte# 0.55 X10^3/uL; Monocyte% 5.3 % (0-10); Neutrophil # 6.52 X10^3/uL (2.7-7.7); Neutrophil % 62.7 % (47-70); Platelet Count 202 K/mm3 (150-450); RBC Distribution Width CV 13.8 % (11.6-14.6); RBC Distribution Width SD 40.7 fl (35.1-43.9); White Blood Count 10.4 K/mm3 (4.4-11.0)
[2018-03-03 19:23] LABS: Anion Gap 8 (5-15); BUN 23 mg/dL (7-18); BUN/Creat Ratio 43.8 RATIO (10-20); Calcium,Total 8.5 mg/dL (8.5-10.1); Chloride 105 mmol/L (98-107); Creatinine, Serum 0.52 mg/dL (0.55-1.02); EST Glomerular Filtration Rate 127 mL/min (>60); Est Glom Filt Rate - Afr Amer 153 mL/min (>60); Estimated Creatinine Clearance 117.51 ml/min; Glucose 239 mg/dL (74-106); Potassium 3.6 mmol/L (3.5-5.1); Sodium Level 138 mmol/L (136-145)
[2018-03-03 19:24] VITALS: BP 127/75; PULSE 68; RESP 16; O2SAT 94
[2018-03-03 19:33] LABS: POSITIVE COUNT NO; POSITIVE DIFFERENTIAL NO; POSITIVE MORPHOLOGY NO
[2018-03-03 19:40] VITALS: O2SAT 96
[2018-03-03 21:00] VITALS: BP 142/68; PULSE 69; RESP 16; O2SAT 94
[2018-03-03 21:29] LABS: D-Dimer Quantitative (DVT/PE) 0.27 FEU/ug/m (0.27-0.49)
[2018-03-03 21:34] LABS: Thyroid Stim Hormone (TSH) 1.15 uIU/mL (0.358-3.74)
--- NOTE | 2018-03-03 21:46 | ED.DCSUM_ITS ---
- ER Visit Summary Date of Service: 03/03/18 Chief Complaint: Palpitations History of Present Illness: The patient is a 57 F who reports waking this morning and was feeling very fatigued and tired. Patient states she had similar symptoms yesterday but not as severe. She had some palpitations intermittently and began having shortness of breath. Patient states she gets palpitations when she is hypoglycemic and she checked her blood sugar but it was normal. Patient states both of her parents have a history of A. fib so she was concerned for this. When she was having palpitations she did check her blood pressure and heart rate, but her meter was reading heart rate in the 70s. Physical Examination: Blood pressure is 165/99, otherwise vitals normal. Patient is in no acute distress and is nontoxic appearing. Head and neck examination is normal. Heart is regular rate and rhythm. Palpable pulses are noted throughout. Lungs are clear with good air movement throughout. Abdomen is soft and nontender. Bowel sounds are noted. Extremity examination is unremarkable with full range of motion. Neurologic examination reveals no focal deficits. Test Results: EKG is sinus at 64 with no sign of acute ischemia. CBC is normal. Chemistry studies significant only for glucose of 239. TSH is normal. D-dimer is normal. 1 view chest x-ray is unremarkable. Emergency Department Course and Treatment: On repeat evaluation patient is resting comfortably. Blood pressure is 121/81. There have been no signs of arrhythmia noted on her monitoring and evaluation advisor throughout her ED stay. She will follow-up with her primary care provider. Treatment Plan: [] Disposition: Discharge Impression: Palpitations This note was generated with [employer] dictation software. It may contain incorrect words, spelling, and punctuation that were not noted in review of the chart prior to signing ED Disposition - Plan for ED Patient: Disposition: Home or Assisted Living Chief Complaint: Palpitations Instructions: ED Palpitations Referrals: Carmen Myers NP-C [Primary Care Provider] - As soon as possible
--- NOTE | 2018-03-03 21:46 | ED.DEP ---
ED Disposition - Plan for ED Patient: Disposition: Home or Assisted Living Chief Complaint: Palpitations Instructions: ED Palpitations Referrals: Carmen Myers, CAM-C [Primary Care Provider] - As soon as possible
[2018-03-03 21:52] VITALS: BP 121/81; PULSE 70; RESP 16; O2SAT 95
== END 2018-03-03 21:59 | disposition home or self-care (01) ==
PROVIDERS: Emergency Provider Emergency Medicine; Family Provider Nurse Practitioner Family; PCP Nurse Practitioner Family
DX: R00.2 Palpitations (principal); I10 Essential (primary) hypertension; E11.9 Type 2 diabetes mellitus without complications; Z79.84 Long term (current) use of oral hypoglycemic drugs; Z79.82 Long term (current) use of aspirin; Z79.899 Other long term (current) drug therapy; Z82.49 Family history of ischemic heart disease and other diseases of the circulatory system
CPT/HCPCS: 71045; 80048; 84443; 84484; 85025; 85379; 93005; 99284; A4216

== ENCOUNTER → 2018-03-29 06:41 | Outpatient (CLI) | payer MEDICAID, SELFPAY ==
[2018-03-03 18:25] VITALS: BMI 30.4
--- NOTE | 2018-03-29 06:47 | ECHOD_ITS ---
Reason For Study: SOB Procedure This was a 2D Doppler, Color Flow transthoracic echocardiogram. Exam performed in department. Left Ventricle Normal LV size. Mild concentric left ventricular hypertrophy. Left ventricular systolic function is normal. The estimated ejection fraction is 65 %. Stage 1 diastolic dysfunction. No regional wall motion abnormalities noted. Right Ventricle Normal RV size. Normal systolic function. Atria Normal left atrium. Normal right atrium. Bubble contrast study negative for right to left interatrial shunt. Mitral Valve Normal mitral valve. Tricuspid Valve Normal tricuspid valve. Mild (1+) tricuspid valve insufficiency. Pulmonary artery systolic pressure is 28 mmHg. Aortic Valve Trisinus/trileaflet aortic valve. Pulmonic Valve Normal pulmonic valve. Great Vessels Normal aortic root. The pulmonary artery is normal size. Inferior vena cava collapse with respiration. Pericardium/Pleural No pericardial effusion. Medication Performed a rapid injection of agitated mix of 9 cc saline and 1cc air to assess for atrial septal defect. MMode/2D Measurements & Calculations LVIDd: 4.2 cm IVSd: 1.4 cm Ao root diam: 2.9 cm LVIDs: 2.4 cm LVPWd: 1.3 cm RVDd: 3.5 cm FS: 41.7 % LAV(MOD-bp): 51.7 ml LVAd ap4: 25.2 cm2 SV(MOD-sp4): 47.1 ml LAV(MOD-bp) Indexed: 24.5 ml/m2 EDV(MOD-sp4): 69.4 ml LAV(MOD-sp2): 46.9 ml EDV(sp4-el): 70.5 ml LAV(MOD-sp4): 50.7 ml LVAs ap4: 12.6 cm2 ESV(MOD-sp4): 22.3 ml ESV(sp4-el): 21.7 ml EF(MOD-sp4): 67.9 % EF(sp4-el): 69.3 % SV(sp4-el): 48.9 ml LA A4 area: 19.4 cm2 LA dimension(2D): 4.9 cm RA A4 area: 16.7 cm2 Doppler Measurements & Calculations MV E max sanjay: 76.0 cm/sec Lat Peak E' Sanjay: 6.5 cm/sec Med Peak E' Sanjay: 5.2 cm/sec MV A max sanjay: 90.1 cm/sec E/E' lat: 11.8 E/E' med: 14.7 MV E/A: 0.84 Ao V2 max: 145.6 cm/sec LV V1 max: 121.3 cm/sec PA V2 max: 99.2 cm/sec Ao max P.5 mmHg LV V1 max P.9 mmHg Ao V2 mean: 104.2 cm/sec Ao mean P.7 mmHg Ao V2 VTI: 33.6 cm TR max sanjay: 245.3 cm/sec TR max P.1 mmHg Interpretation Summary Normal LV size. Left ventricular systolic function is normal. The estimated ejection fraction is 65 %. Stage 1 diastolic dysfunction. Mild concentric left ventricular hypertrophy. Mild (1+) tricuspid valve insufficiency. Pulmonary artery systolic pressure is 28 mmHg. Ordering Physician: ANTOINE Fraser Referring Physician: ANTOINE Fraser Performed By: Micaela Pedersen, INDRA, RVT
--- NOTE | 2018-03-29 10:10 | STRESSREP ---
Stress Test Report Exercise myocardial perfusion stress test. 57-year-old lady with a history of shortness of breath. Medications: Glipizide pravastatin metoprolol pioglitazone. Resting EKG demonstrates normal sinus rhythm with a rate of 79 bpm normal intervals are noted resting blood pressure 150/86 mmHg. The patient exercised according to regular Karson protocol for total duration of 6 minutes the maximum heart rate attained was 146 bpm which was 90% of maximum predicted heart rate the maximum workload was 7 metabolic equivalents. At rest there were no ST or T wave changes noted suggest ischemia at peak exercise upsloping ST or T wave changes were noted with normally the criteria for ischemia no clinical angina was noted. The resting blood pressure 150/80 6 m of mercury the peak blood pressure was 180/82 mmHg. Myocardial perfusion protocol. 14.3 mCi of technetium 99m sestamibi was injected at rest. The patient exercised according to regular Karson protocol for total duration of 7 metabolic equivalents at peak exercise 43.5 mCi of technetium 99m sestamibi was injected stress images were obtained stress and rest images were reconstructed and compared in the short axis vertical long and horizontal long axis. Gated images were also obtained Perfusion SPECT analysis: Review of the images demonstrate normal uptake of tracer noted in all areas of the myocardium. The resting images similarly demonstrate normal uptake of tracer noted in all areas of the myocardium. No areas of reversibility are noted suggest ischemia. Gated SPECT analysis: The gated ejection fraction is noted to be over 60%. Conclusion: Normal exercise myocardial perfusion stress test at a moderate workload. Preserved ejection fraction.
== END ==
PROVIDERS: Family Provider Nurse Practitioner Family; PCP Nurse Practitioner Family; Referring Provider Nurse Practitioner Family; Visit Provider Nurse Practitioner Family
DX: I51.7 Cardiomegaly (principal); R06.02 Shortness of breath; R01.1 Cardiac murmur, unspecified; R00.2 Palpitations; E11.9 Type 2 diabetes mellitus without complications
CPT/HCPCS: 78452; 93017; 93225; 93226; 93306; A9500; A4216

== ENCOUNTER 2018-04-20 14:27 | Emergency (ER) | payer MEDICAID, SELFPAY ==
[2018-04-20 14:28] VITALS: BP 142/79; PULSE 86; RESP 16; TEMP 36.6; O2SAT 97; BMI 32.6
--- NOTE | 2018-04-20 15:09 | EKG12_ITS ---
Test Reason : EPIGASTRIC PAIN Blood Pressure : / mmHG Vent. Rate : 064 BPM Atrial Rate : 064 BPM P-R Int : 150 ms QRS Dur : 092 ms QT Int : 414 ms P-R-T Axes : 047 006 017 degrees QTc Int : 427 ms Normal sinus rhythm Inferior infarct , age undetermined Poor R wave progression Abnormal ECG Confirmed by MAUREEN RUFFIN, YUDY ([id number]), photography editor ALBERTO LEON ([id number]) on 04/22/2018 1:25:39 PM Referred By: MANUEL Confirmed By:YUDY REDDY MD
[2018-04-20] MEDS: 0.9% Normal Saline 1,000 ML 150 ML IV (15:43)
[2018-04-20 15:47] LABS: Absolute Lymphocyte Count 3.34 X10^3/ul (0.83-4.51); Basophil# 0.03 X10^3/uL; Basophil% 0.3 % (0-1); Eosinophil# 0.23 X10^3/uL; Eosinophils% 2.3 % (0-5); Hematocrit 46.8 % (37-47); Hemoglobin 15.5 g/dl (12.0-15.0); Lymphocyte # 3.34 X10^3/ul (4.0); Lymphocyte % 32.8 % (19-41); Mean Corp Hgb Conc 33.1 g/gl (32-36); Mean Corpuscular Hgb 27.2 pg (27.0-32.0); Mean Corpuscular Volume 82.2 fL (81-99); Mean Platelet Vol. 9.2 fl (6.2-12.0); Monocyte# 0.59 X10^3/uL; Monocyte% 5.8 % (0-10); Neutrophil # 5.96 X10^3/uL (2.7-7.7); Neutrophil % 58.5 % (47-70); Platelet Count 210 K/mm3 (150-450); RBC Distribution Width CV 13.8 % (11.6-14.6); RBC Distribution Width SD 41.3 fl (35.1-43.9); Red Blood Count 5.69 M/mm3 (4.2-5.4); White Blood Count 10.2 K/mm3 (4.4-11.0)
--- NOTE | 2018-04-20 15:47 | ED.VISSUMM ---
- ER Visit Summary Date of Service: 04/20/18 Chief Complaint: [Abdominal pain] History of Present Illness: The patient is a 57 F [presents the emergency department complaint of abdominal pain that started 3 days ago. Patient states that she just recently started him a new medication 5 days ago for her diabetes called Gayjt. Patient is not sure if this is related to that. Patient states she stopped taking the medication yesterday. Patient describes a diffuse ache that she rates about a 5 or 6 out of 10. Patient states she feels somewhat bloated and distended. Patient states that yesterday her pain radiated to her back and it somewhat reminded her of when she had pancreatitis. Patient's had no vomiting and she is had no diarrhea. Patient has history of diabetes, hypertension, high cholesterol, and pancreatitis. Past surgical history includes cholecystectomy and 8 C-sections as well as a hernia repair.] Physical Examination: [HEENT-PERRLA, EOMI. Cranial nerves II through XII grossly intact. TMs clear. Mucous membranes moist. No adenopathy. Cardiovascular-regular rate and rhythm without murmur or ectopy Lungs-clear to auscultation, chest wall stable without crepitus or subcu emphysema Abdomen-normoactive bowel sounds, soft. Patient does have some tenderness diffusely however she seems to localize more to the epigastric region. There is no rebound, rigidity, or perineal signs. Extremities-intact ?4, normal range of motion, normal pulses, atraumatic] Test Results: [EKG obtained arrival shows sinus rhythm with a ventricular rate of 64 bpm with old inferior infarct noted. CBC with differential showed a white count 10.2, hemoglobin 15.5, hematocrit 47, platelets 210. History is unremarkable. LFTs were normal. Lipase was 189. Urinalysis was normal. Troponin was less than 0.015. Lactate was normal. CT flank showed nothing acute.] Emergency Department Course and Treatment: [Patient denies anything for pain in the department.] Treatment Plan: [Patient will be given a prescription for Bentyl. Patient advised to follow-up with primary care physician within next 3-5 days. Patient to return if worsening pain, fever, vomiting, or condition should worsen anyway.] Disposition: Discharged to home in stable condition] Impression: [Abdominal pain-etiology uncertain] This note was generated with sfilatinoation software. It may contain incorrect words, spelling, and punctuation that were not noted in review of the chart prior to signing ED Disposition - Plan for ED Patient: Referrals: Carmen Myers, BACK STRIP MACHINE OPERATOR-C [Primary Care Provider] -
[2018-04-20 15:48] LABS: POSITIVE COUNT NO; POSITIVE DIFFERENTIAL NO; POSITIVE MORPHOLOGY NO
[2018-04-20 16:01] LABS: ALB/GLOB Ratio 1.1 RATIO (0.9-2.4); AST(SGOT) 19 U/L (15-37); Alanine Aminotransfer ALT/SGPT 30 U/L (13-56); Alkaline Phosphatase 72 U/L (45-117); Anion Gap 12 (5-15); BUN 25 mg/dL (7-18); BUN/Creat Ratio 41.8 RATIO (10-20); Calcium,Total 9.4 mg/dL (8.5-10.1); Chloride 104 mmol/L (98-107); EST Glomerular Filtration Rate 109 mL/min (>60); Est Glom Filt Rate - Afr Amer 132 mL/min (>60); Estimated Creatinine Clearance 101.84 ml/min; Globulin 3.5 g/dL (2.2-4.2); Glucose 98 mg/dL (74-106); Lipase 189 U/L (73-393); Potassium 3.6 mmol/L (3.5-5.1); Protein, Total 7.5 g/dL (6.4-8.2); Sodium Level 142 mmol/L (136-145)
--- NOTE | 2018-04-20 16:07 | CT_ITS ---
STUDY: CT ABDOMEN AND PELVIS WITHOUT CONTRAST REASON FOR EXAM: Female, 57 years old. Upper abdominal pain. Nausea. Recent change in diabetic medication. History of with incisional hernia mesh repair. RADIATION DOSAGE (If Supplied By Facility): CTDIvol = ( 18.32 ) mGy, DLP = ( 1298.52 ) mGycm TECHNIQUE: Transaxial images were obtained from the dome of the diaphragm to the symphysis pubis without oral contrast, and without intravenous contrast. Sagittal and coronal images were reconstructed. Individualized dose optimization techniques were used for this CT. COMPARISON: CT of the abdomen and pelvis, September 08, 2015. FINDINGS: The visualized lung bases are unremarkable. The visualized portions of the heart are within normal limits. Normal liver. There is non-visualization of the gallbladder, which may be secondary to either contraction or a prior cholecystectomy. Normal spleen. Normal pancreas. 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 This is unchanged from prior exam. Normal bilateral adrenal glands. Normal right kidney. Normal left kidney. Normal bilateral ureters. Normal visualized stomach. Normal small intestine. There is feces throughout a nondistended colon. There is no mass or obstruction. The appendix is visualized and appears normal. There is minimal atherosclerotic changes of the abdominal aorta without aneurysm or dissection. Normal inferior vena cava. Normal retroperitoneum. Normal urinary bladder. Normal uterus and ovaries. There is no pelvic lymphadenopathy or mass. No free air or free fluid is seen within the peritoneal cavity. There is a small umbilical hernia of omental fat. There is mesh along the in anterior aspect of the lower abdominal wall. There are mild degenerative changes of the lumbar spine. CT/Abdomen/Pelvis W IV Cont ONLY IMPRESSION: 1. Mild increase in colonic feces. Question constipation. 2. Resolution of fatty infiltration of liver seen on the prior study. 3. No other major interval change. Electronically Signed: Frederick Pollock DO at 16:40 EST Tel [phone], Service support ,
[2018-04-20 16:27] VITALS: BP 134/75; PULSE 64; RESP 16; O2SAT 96
[2018-04-20 17:11] LABS: Bacteria 0 SEEN /hpf (None Seen); Mucous, Urine 0 SEEN /hpf (<or=2+); Red Blood Cells-Urine 0 SEEN /hpf (0-5); Squamous Epithelial Cells - UA 0 SEEN /hpf (5-10); White Blood Cells 0 SEEN /hpf (0-5)
[2018-04-20 17:15] LABS: Color, Urine Yellow (Yellow); Glucose, Dipstick 1000 mg/dl (Normal); Ketone-Dipstick 15 mg/dl (Negative); Leukocyte Esterase-Dipstick Negative /ul (Negative); Nitrite-Dipstick Negative (Negative); Occult Blood-Urine Negative /ul (Negative); Protein-Dipstick Negative (Negative); Specific Gravity, Urine 1.025 (1.002-1.030); Urine Bilirubin Dipstick Negative (Negative); Urine Clarity Clear (Clear); Urine Urobilinogen Normal (Normal)
--- NOTE | 2018-04-20 17:31 | ED.DEP ---
ED Disposition - Plan for ED Patient: Instructions: ED Abdominal Pain Unkn Cause Prescriptions: Dicyclomine HCl [Bentyl] 20 mg PO TIDAC #20 cap Referrals: Carmen Myers, CAM-C [Primary Care Provider] - 3-5 Days
[2018-04-20 17:42] VITALS: BP 134/75; PULSE 64; RESP 16; O2SAT 96
== END 2018-04-20 17:48 | disposition home or self-care (01) ==
LOC: ED 15:23
PROVIDERS: Emergency Provider Emergency Medicine; Family Provider Nurse Practitioner Family; PCP Nurse Practitioner Family
DX: R10.9 Unspecified abdominal pain (principal); E11.9 Type 2 diabetes mellitus without complications; I10 Essential (primary) hypertension; E78.00 Pure hypercholesterolemia, unspecified; Z87.19 Personal history of other diseases of the digestive system; Z90.49 Acquired absence of other specified parts of digestive tract; Z79.82 Long term (current) use of aspirin; Z79.84 Long term (current) use of oral hypoglycemic drugs; Z79.899 Other long term (current) drug therapy
CPT/HCPCS: 74177; 80053; 81001; 83605; 83690; 84484; 85025; 93005; 96360; 96361; 99285; J7030; Q9967; A4216

== ENCOUNTER 2018-06-02 12:59 | Emergency (ER) | payer MEDICAID, SELFPAY ==
[2018-06-02 12:59] VITALS: BP 149/87; PULSE 67; RESP 18; TEMP 36.2; O2SAT 99; BMI 32.6
--- NOTE | 2018-06-02 13:32 | RAD_ITS ---
STUDY: X-RAY - RIGHT HAND, ATTENTION FIFTH FINGER REASON FOR EXAM: Female, 57 years old. Trauma TECHNIQUE: 3 view(s) of the finger were obtained. COMPARISON: None. FINDINGS: There is no evidence of fracture or dislocation. There are no significant degenerative changes. There are no radiodense foreign bodies. RAD/Finger(s) Min 2 Views IMPRESSION: No fracture or dislocation. Electronically Signed: Sidney Ashby, at 14:03 EDT Tel , Service support ,
--- NOTE | 2018-06-02 13:53 | ED.VIS.GEN ---
History of Present Illness Chief Complaint: Upper Extremity Injury Informant: Patient Onset: Today - around 3-4 hrs ago Context: Sudden Onset - w/ gradual worsening Timing: Continuous Quality: sore, throbbing Location: R small finger Current Severity: Moderate Maximum Severity: Moderate Worsened by: palpation Relieved by: nothing Associated Symptoms: swelling of distal phalanx Narrative: Her daughter accidentally dropped a 7 pound can of pork and beans on her little finger, smashing it bluntly. No bleeding. Gradually worsening bruising and swelling. Takes aspirin but no anticoagulants. - Past Medical History (1) DM2 (diabetes mellitus, type 2) Status: Chronic (2) Dyslipidemia Status: Chronic (3) Essential hypertension Status: Chronic Past Medical History - Allergies and Home Meds Allergies/Adverse Reactions: Allergies morphine Allergy (Verified 06/02/18 12:59) Chest tightness codeine Adverse Reaction (Verified 06/02/18 12:59) Vomiting Primary Care Physician: Carmen Myers NP-C [Primary Care Provider] - Surgical History: cholecystectomy, - - 8 C-sections Lives: With Family Smoking Status: Never smoker - Family History Maternal Family History: Reports: Diabetes, Hypertension, - - Her mother had atrial fibrillation Paternal Family History: Reports: Diabetes, Hypertension Review of Systems Musculoskeletal: Reports: Swelling - localized to injury, right small finger, Extremity Pain Neurological: Denies: Weakness, Parasthesia, Numbness Physical Exam Vital Signs/Narrative: Vital Signs Temp Pulse Resp BP Pulse Ox 06/02/18 12:59 97.1 F L 67 18 149/87 H 99 Inital Vital Signs reviewed: Yes General: Well nourished, Well developed, No Acute Distress Head: Normocephalic, Atraumatic Extremities: Tenderness - right 5th digit distal phalanx and DIPJ. FDS, FDP, extensor mech's intact; limited ROM DIPJ only due to swelling/pain. Skin: Normal color, No rash, Trauma - ecchymotic right 5th finger distal phalanx w/ small subungual hematoma. no lacs. nail intact w/o apparent injury. Neurological: Alert, Oriented x3, Cranial nerves II-XII grossly intact, Normal Strength, Normal Sensation Psychological: Normal affect, Normal Mood Diagnostic/Tx/Re-eval Clinical Impression(s) from Imaging Studies Finger X-Ray 06/02/18 13:32 IMPRESSION: No fracture or dislocation. Electronically Signed: Sidney Ashby, at 14:03 EDT Tel , Service support , - Medical Decision Making No fracture on x-ray. Patient was amenable to nail trephination via low temperature electrocautery device, which did result in drainage of blood and decrease in pressure/pain. Bacitracin was placed with a Band-Aid and she was given appropriate discharge instructions. Procedures Procedure(s): Right small finger nail trephination --sterile prep with chlorhexidine, then gently performed using low temperature electrocautery device without complication. The finger was gently squeezed and massage to drain as much of the hematoma is possible. Patient tolerated well. No complications. Dressed with bacitracin. ED Disposition - Plan for ED Patient: Disposition: Home or Assisted Living Diagnosis: Subungual hematoma of right little finger Instructions: Subungual Hematoma Referrals: Carmen Myers NP-C [Primary Care Provider] - As Needed
== END 2018-06-02 15:42 | disposition home or self-care (01) ==
PROVIDERS: Emergency Provider Emergency Medicine; Family Provider Nurse Practitioner Family; PCP Nurse Practitioner Family
DX: S60.151A Contusion of right little finger with damage to nail, initial encounter (principal); W22.8XXA Striking against or struck by other objects, initial encounter; Y93.9 Activity, unspecified; Y92.9 Unspecified place or not applicable; E11.9 Type 2 diabetes mellitus without complications; I10 Essential (primary) hypertension; E78.5 Hyperlipidemia, unspecified; Z79.84 Long term (current) use of oral hypoglycemic drugs; Z79.82 Long term (current) use of aspirin; Z79.899 Other long term (current) drug therapy
CPT/HCPCS: 11740; 73140; 99282

== ENCOUNTER 2019-09-04 09:15 | Emergency (ER) | payer MEDICAID, SELFPAY ==
[2019-09-04 09:15] VITALS: BMI 32.6
[2019-09-04 09:16] VITALS: BP 184/93; PULSE 82; RESP 18; TEMP 36.6; O2SAT 94; BMI 34.2
--- NOTE | 2019-09-04 09:35 | ED.VISSUMM ---
- ER Visit Summary Date of Service: 09/04/19 Chief Complaint: Urinary frequency. History of Present Illness: The patient is a 58 F who presents with urinary frequency that is been getting worse over the past 5 days. Patient states she completed a 5-day course of Cipro yesterday. Patient is still having urinary frequency. Patient denies any dysuria. Patient does admit to some low back pain. Patient denies any flank pain. Patient denies any fevers or chills. Patient admits to nausea but denies any vomiting. Patient denies any abnormal vaginal bleeding or discharge. Patient denies any diarrhea, melena, or hematochezia. Physical Examination: Vital signs are stable. Patient is afebrile. Patient is in no acute distress. Oral mucosa is pink and moist. Neck is supple. Trachea is midline. There is no JVD. Heart was regular rate and rhythm. Lungs are clear and equal bilaterally. Abdomen is soft. Bowel sounds are normal. There is some mild suprapubic tenderness. There is no rebound or guarding noted. Cranial nerves II through XII are intact. There are no focal motor or sensory deficits noted. Extremities are intact. There is no calf tenderness or edema. Test Results: Urinalysis was obtained. There is no evidence of urinary tract infection. CBC and basic metabolic profile were obtained. Glucose was slightly elevated 203 but was otherwise within normal limits. Emergency Department Course and Treatment: Urine culture results from 08/29/2019 showed E. coli that was sensitive to Cipro. Patient was advised of her findings. Patient was instructed to follow-up with her primary care physician in 3-5 days for further evaluation. Patient understood and was agreeable with the plan. All questions were answered. Disposition: Discharge home Impression: Urinary frequency This note was generated with [employer] dictation software. It may contain incorrect words, spelling, and punctuation that were not noted in review of the chart prior to signing ED Disposition - Plan for ED Patient: Disposition: Home or Assisted Living Diagnosis: Urinary frequency Instructions: ED Pelvic Pain [facility] Referrals: Carmen Myers NP-C [Primary Care Provider] - 3-5 Days
[2019-09-04 09:45] LABS: Bacteria 0 SEEN /hpf (None Seen); Mucous, Urine 0 SEEN /hpf (<or=2+); Red Blood Cells-Urine 0 SEEN /hpf (0-5); Squamous Epithelial Cells - UA 0 SEEN /hpf (5-10); White Blood Cells 0 SEEN /hpf (0-5)
[2019-09-04 09:48] LABS: Color, Urine Yellow (Yellow); Glucose, Dipstick 250 mg/dl (Normal); Ketone-Dipstick Negative (Negative); Leukocyte Esterase-Dipstick Negative /ul (Negative); Nitrite-Dipstick Negative (Negative); Occult Blood-Urine Negative /ul (Negative); Protein-Dipstick Negative (Negative); Specific Gravity, Urine 1.005 (1.002-1.030); Urine Bilirubin Dipstick Negative (Negative); Urine Clarity Clear (Clear); Urine Urobilinogen Normal (Normal); Urine pH 6.5 (5.0 - 8.0)
[2019-09-04 11:16] LABS: Absolute Lymphocyte Count 2.85 X10^3/uL (0.83-4.51); Absolute Neutrophil Count 4.1 X10^3/uL (2.0-7.7); Basophil# 0.05 X10^3/uL; Basophil% 0.7 % (0-1); Eosinophils% 2.6 % (0-5); Hematocrit 43.4 % (37-47); Hemoglobin 14.4 g/dL (12.0-15.0); Lymphocyte # 2.85 X10^3/ul (4.0); Lymphocyte % 37.5 % (19-41); Mean Corp Hgb Conc 33.2 g/dL (32-36); Mean Corpuscular Hgb 27.5 pg (27.0-32.0); Mean Corpuscular Volume 82.8 fL (81-99); Mean Platelet Vol. 9.1 fl (6.2-12.0); Monocyte# 0.35 X10^3/uL; Monocyte% 4.6 % (0-10); NRBC Flagged by Analyzer 0 % (0-5); Neutrophil # 4.09 X10^3/uL (2.7-7.7); Neutrophil % 53.9 % (47-70); Platelet Count 237 K/mm3 (150-450); RBC Distribution Width CV 13.6 % (11.6-14.6); RBC Distribution Width SD 40.1 fl (35.1-43.9); Red Blood Count 5.24 M/mm3 (4.2-5.4); White Blood Count 7.6 K/mm3 (4.4-11.0)
[2019-09-04 11:30] LABS: AST(SGOT) 12 U/L (15-37); Alanine Aminotransfer ALT/SGPT 25 U/L (13-56); Albumin, Serum 3.6 g/dL (3.2-5.0); Alkaline Phosphatase 88 U/L (45-117); Anion Gap 5 (5-15); BUN 18 mg/dL (7-18); BUN/Creat Ratio 34.6 RATIO (10-20); Calcium,Total 8.9 mg/dL (8.5-10.1); Chloride 106 mmol/L (98-107); Creatinine, Serum 0.52 mg/dL (0.55-1.02); EST Glomerular Filtration Rate 128 mL/min (>60); Est Glom Filt Rate - Afr Amer 154 mL/min (>60); Estimated Creatinine Clearance 116.06 ml/min; Globulin 3.5 g/dL (2.2-4.2); Glucose 203 mg/dL (74-106); Potassium 3.8 mmol/L (3.5-5.1); Protein, Total 7.1 g/dL (6.4-8.2); Sodium Level 139 mmol/L (136-145)
[2019-09-04 12:13] VITALS: BP 154/79; PULSE 82; RESP 20; O2SAT 99
--- NOTE | 2019-09-04 12:19 | ED.RN ---
THIS NURSE REVIEWED D/C INSTRUCTIONS WITH PT. PT VERBALIZED UNDERSTANDING OF INSTRUCTIONS. PT DENIES FURTHER NEEDS OR QUESTIONS AT THIS TIME.
== END 2019-09-04 12:22 | disposition home or self-care (01) ==
PROVIDERS: Emergency Provider Emergency Medicine; PCP Nurse Practitioner Family
DX: R35.0 Frequency of micturition (principal); I10 Essential (primary) hypertension; E11.9 Type 2 diabetes mellitus without complications; Z79.84 Long term (current) use of oral hypoglycemic drugs
CPT/HCPCS: 80053; 81001; 85025; 99282

== ENCOUNTER → 2019-09-16 12:01 | Outpatient (CLI) | payer MEDICAID, SELFPAY ==
[2019-09-04 09:16] VITALS: BMI 34.2
--- NOTE | 2019-09-16 12:03 | US_ITS ---
STUDY: RENAL ULTRASOUND - COMPLETE REASON FOR EXAM: Female, 58 years old. UTI''S TECHNIQUE: Ultrasound evaluation of the kidneys was performed with real-time and static chand-scale imaging. COMPARISON: None. FINDINGS: RIGHT KIDNEY: Normal location of the right kidney, which is normal in size. The right kidney measures 11.7 cm x 5.7 cm x 5.7 cm. There is a normal cortex of the right kidney. The renal cortex measures 2.1 cm. There is no right renal mass or cyst. There are no right renal calculi. There is no right hydronephrosis. DISTAL RIGHT URETER: There is non-visualization of the distal right ureter. There is no demonstrated right ureterovesical junction calculus. There is a visualized right ureteral jet. LEFT KIDNEY: Normal location of the left kidney, which is normal in size. The left kidney measures 12.3 cm x 5.3 cm x 5.1 cm. There is a normal cortex of the left kidney. The renal cortex measures 1.6 cm. There is no left renal mass or cyst. There are no left renal calculi. There is no left hydronephrosis. DISTAL LEFT URETER: There is non-visualization of the distal left ureter. There is no demonstrated left ureterovesical junction calculus. There is a visualized left ureteral jet. BLADDER: The distended urinary bladder has a volume of 115 ml. There is a normal wall thickness of the distended urinary bladder. There is no demonstrated mass within the urinary bladder. There are no demonstrated bladder calculi. US/Kidney and Bladder IMPRESSION: Normal ultrasound of the kidneys and urinary bladder. Electronically Signed: Tad Saha, at 14:16 EDT , Service support ,
== END ==
PROVIDERS: PCP Nurse Practitioner Family; Referring Provider Urology; Visit Provider Urology
DX: N39.0 Urinary tract infection, site not specified (principal)
CPT/HCPCS: 76770

== ENCOUNTER 2020-05-16 14:26 | Emergency (ER) | payer MEDICAID, SELFPAY ==
[2020-05-16 14:26] VITALS: BP 162/66; PULSE 81; RESP 16; TEMP 36.2; O2SAT 98; BMI 35.6
[2020-05-16] MEDS: Mixture 30 ML Bottle TOPICAL (15:57)
--- NOTE | 2020-05-16 16:14 | ED.VISSUMM ---
- ER Visit Summary Date of Service: 05/16/20 Chief Complaint: Nosebleed History of Present Illness: The patient is a [address] Caballero. She reports that she had bleeding from the right side of her nose off and on since 9:00 this morning. States it will stop for 15 to 20 minutes and then start again. She denies any injuries. She is not on anticoagulants. Physical Examination: Vitals: Stable. Afebrile. General: Well-nourished and well-developed. Head: Normocephalic atraumatic. HEENT: There is no blood in the oropharynx. There is excoriation of the right nasal septum anteriorly. There is no culprit vessel. Neck: Supple, no lymphadenopathy. No JVD. Nontender. Cardiovascular: Regular rate and rhythm. No murmurs. Respiratory: No respiratory distress. Clear to auscultation bilaterally. Abdominal: Soft, nontender, nondistended, normal bowel sounds. No guarding, rebound, or peritoneal signs. Back: Nontender. Extremities: Nontender, no edema. Skin: Normal color, no rash. Neurologic: Alert and oriented ?3. Cranial nerves II through XII are intact. Normal strength and sensation. Psych: Normal affect. Emergency Department Course and Treatment: Patient had Beto mix instilled. She then had it packed with Vaseline gauze. There is no active bleeding. Treatment Plan: Patient will be discharged with Keflex to prevent sinusitis. Follow-up with Dr. Enrique Carter in 3 to 5 days for another exam. Return to the emergency department for any worsening symptoms. Disposition: To home in improved and stable condition. Impression: 1. Nosebleed. This note was generated with [employer] dictation software. It may contain incorrect words, spelling, and punctuation that were not noted in review of the chart prior to signing ED Disposition - Plan for ED Patient: Instructions: Nosebleed Prescriptions: Cephalexin [Keflex] 500 mg PO Q6 #28 capsule Referrals: Enrique Carter MD [STAFF PHYSICIAN] - 3-5 Days
[2020-05-16] MEDS: Cephalexin 500 MG Capsule PO (16:34)
== END 2020-05-16 16:36 | disposition home or self-care (01) ==
LOC: ED 15:45
PROVIDERS: Emergency Provider Emergency Medicine; PCP Internal Medicine
DX: R04.0 Epistaxis (principal)
CPT/HCPCS: 30901; 99283

== ENCOUNTER → 2020-08-28 10:22 | Outpatient (CLI) | payer MEDICAID, SELFPAY ==
[2020-08-27 14:15] VITALS: BMI 35.6
[2020-08-28 10:33] LABS: Mucous, Urine 0 SEEN /hpf (<or=2+)
[2020-08-28 10:56] LABS: Color, Urine Yellow (Yellow); Glucose, Dipstick 1000 mg/dl (Normal); Ketone-Dipstick 15 mg/dl (Negative); Leukocyte Esterase-Dipstick 500 /ul (Negative); Nitrite-Dipstick Positive (Negative); Occult Blood-Urine 25 /ul (Negative); Protein-Dipstick Negative (Negative); Urine Bilirubin Dipstick Negative (Negative); Urine Clarity Sl. Cloudy (Clear); Urine Urobilinogen Normal (Normal)
[2020-08-28 11:30] LABS: Bacteria 1+ /hpf (None Seen); Red Blood Cells-Urine 0-5 SEEN /hpf (0-5); Squamous Epithelial Cells - UA 0-5 SEEN /hpf (5-10); White Blood Cells 25-50 SEEN /hpf (0-5)
== END ==
PROVIDERS: PCP Internal Medicine; Referring Provider Physician Assistant; Visit Provider Physician Assistant
DX: R39.15 Urgency of urination (principal)
CPT/HCPCS: 81001; 87077; 87086; 87088; 87186

== ENCOUNTER 2020-09-05 09:42 | Emergency (ER) | payer MEDICAID, SELFPAY ==
[2020-08-27 14:15] VITALS: BMI 35.6
[2020-09-05 09:43] VITALS: BP 159/77; PULSE 94; RESP 18; TEMP 36.6; O2SAT 99; BMI 35.7
--- NOTE | 2020-09-05 09:58 | VDLE_ITS ---
Reason For Study: Pain Procedure LEFT This is a venous duplex using B-mode, color GSV is normal. flow and spectral Doppler. CFV is compressible, spontaneous, phasic, Exam performed portable in ED. competent, and demonstrates normal A preliminary report was called and/or faxed augmentation. to Dr. Fletcher. FV is compressible, spontaneous, phasic, competent and demonstrates normal augmentation. POP V is compressible, spontaneous, phasic, competent and demonstrates normal augmentation. T/P Trunk is compressible. PTV is compressible. LT PerV is compressible. Hypoechoic, non vascular structure noted Lt Pop Fossa measuring 3.32cm x 2.71cm Area of fluid also noted Lt anterior knee. VL/Venous Duplex US, Unilateral Interpretation Summary Deep veins of the left lower extremity are patent and compressible segmentally. There is no evidence of left lower extremity deep vein thrombosis. Valvular competence appears intac t within the proximal deep venous system on the left . The left great saphenous vein appears patent a nd compressible segmentally. A non-vascular, hypoechoic structure is noted in the left poplitea l space, measuring 3.32 cm x 2.71 cm. This probably represents a popliteal cyst. There appears to be fluid about the left anterior knee. Clinical correlation is advised. Ordering Physician: Osei Fletcher Referring Physician: Kristen Caballero Performed By: Micaela Pedersen, FERNANDOCS, RVT
--- NOTE | 2020-09-05 10:04 | EDS_ITS ---
HPI History of Present Illness Chief Complaint: Lower Extremity Injury Informant: patient Onset/Context/Timing Onset: Yesterday Context: Gradual Onset Timing: Continuous Quality of Pain: Aching Location: Left knee Worsened by: Nothing Relieved by: Nothing Associated Symptoms Associated Symptoms: Negative for Parasthesia and Weakness Narrative Narrative: Patient presents with left knee and leg pain that began yesterday. Patient states she noted increased swelling in her left knee yesterday. Patient states she had a knee arthroscopy several months ago to repair meniscus. Patient states she was doing fine. Patient states nothing makes her pain better and nothing makes it worse. Patient denies any paresthesias or weakness. Patient denies any trauma or injury. Patient also states she has been having some cramping in her left calf. Patient also admits to some other aches and swelling in her joints. [facility] Medical History Diabetes Glucosuria HTN (hypertension) Knee pain Urinary tract infection with hematuria Urinary urgency Home Medications pravastatin 40 mg PO DAILY 05/28/13 [History Last Taken 09/20/17] ergocalciferol (vitamin D2) [Vitamin D2] 5,000 unit PO DAILY 08/19/13 [History Last Taken 09/20/17] aspirin 81 mg PO DAILY@0800 #30 tab.chew 04/05/17 [Rx Last Taken 09/20/17] calcium carbonate 500 mg calcium (1,250 mg) tablet 500 mg PO DAILY 08/27/20 [History Last Taken Unknown] ciprofloxacin HCl 500 mg tablet 500 mg PO BID #14 tab 08/27/20 [Rx Last Taken Unknown] cranberry 400 mg capsule 400 mg PO DAILY 08/27/20 [History Last Taken Unknown] liraglutide 0.6 mg/0.1 mL (18 mg/3 mL) subcutaneous pen injector 0.6 mg SUBCUT DAILY ml 08/27/20 [History Last Taken Unknown] losartan 50 mg tablet 50 mg PO DAILY tab 08/27/20 [History Last Taken Unknown] metformin 500 mg tablet,extended release 24 hr 500 mg PO 4X/DAY tab 08/27/20 [History Last Taken Unknown] psyllium husk 0.4 gram capsule 0.4 g PO DAILY 08/27/20 [History Last Taken Unknown] Allergy/AdvReac Type Severity Reaction Status Date / Time morphine Allergy Chest Verified 08/27/20 14:09 tightness codeine AdvReac Vomiting Verified 08/27/20 14:09 Family History (Updated 08/27/20 @ 14:15 by Melissa Valerio) Mother Diabetes Hypercholesterolemia Father Diabetes Hypercholesterolemia Surgical History History of hernia repair History of knee surgery History of tonsillectomy Hx of section Hx of cholecystectomy Social History Smoking Status: Never smoker alcohol intake: never ROS ROS ED Constitutional Constitutional ED: Denies chills or fever(s) Eyes Eyes: Denies blurry vision or change in vision ENT ENT ED: Denies rhinorrhea or sore throat Cardiovascular Cardiovascular: Denies chest pain or palpitations Respiratory/Chest Respiratory/Chest: Denies cough or dyspnea Gastrointestinal Gastrointestinal: Denies nausea or vomiting Genitourinary Genitourinary ED: Denies dysuria or hematuria Musculoskeletal Musculoskeletal: Reports arthralgias, back pain and neck pain Integumentary Denies abscess or rash Neurologic Neurologic: Denies headache(s) or weakness Allergic/Immunologic Allergic/Immunologic ED: Denies mouth swelling or urticaria EXAM Physical Exam Const Vital Signs: 09/05/20 09:43 Temperature 97.8 F Temperature Source Temporal Pulse Rate 94 Respiratory Rate 18 Blood Pressure 159/77 H Blood Pressure Mean 104 Pulse Ox 99 Oxygen Delivery Method Room Air Positive well nourished, well developed and obese General Appearance ED: well developed Nutritional Appearance: obese Neck full ROM Extremity Extremity Narrative: There is tenderness and a mild effusion to the left knee. There is some mild tenderness over the left calf. There is no erythema or warmth. Range of motion was slightly limited in all motions of the left knee secondary to pain. Sensation was intact to light touch bilaterally in the lower extremities. There are no deformities noted. There is a strong pedal pulse. Neuro oriented x3, CN's II-XII intact bilaterally, moves all extremities and no sensory deficits noted Sensorium / Orientation: alert Psych mental status grossly normal MDM MDM MDM Narrative Medical decision making narrative: Venous duplex of the left lower extremity was obtained. There is no evidence of DVT. There is a Rodriguez's cyst noted. X-rays of the left knee were obtained. There are 4 views. On my interpretation, there is no acute fracture or dislocation. There is moderate effusion. Radiologist also interpreted the x-rays and agrees. CBC and comprehensive metabolic profile were obtained and were essentially within normal limits. Patient was advised of her findings. Patient was instructed to ice and elevate the left knee. Patient was instructed to take Tylenol or ibuprofen as needed for pain. Patient was instructed to follow-up with her primary care physician in 5 to 7 days. Patient was also instructed to follow-up with her orthopedic surgeon. Patient understood and was agreeable with the plan. All questions were answered. Lab Data Attestation: I reviewed the patient's lab results. Labs: Laboratory Results - last 24 hr 09/05/20 09/05/20 10:20 10:20 WBC 7.5 RBC 5.14 Hgb 14.4 Hct 42.1 MCV 81.9 MCH 28.0 MCHC 34.2 RDW Std Deviation 41.2 RDW Coeff of Kyleigh 14.0 Plt Count 233 MPV 9.3 Immature Gran % (Auto) 1.100 H Neut % (Auto) 55.9 Lymph % (Auto) 34.0 [place] % (Auto) 5.4 Eos % (Auto) 2.8 Baso % (Auto) 0.8 Absolute Neuts (auto) 4.2 Absolute Lymphs (auto) 2.54 Nucleated RBC % 0 Sodium 133 L Potassium 4.0 Chloride 99 Carbon Dioxide 25.0 Anion Gap 9 BUN 25 H Creatinine 0.71 Estim Creat Clear Calc 83.94 Est GFR (MDRD) Af Amer 107 Est GFR (MDRD) Non-Af 88 BUN/Creatinine Ratio 35.1 H Glucose 339 H Calcium 8.4 L Total Bilirubin 0.50 AST 15 ALT 32 Alkaline Phosphatase 142 H Total Protein 6.8 Albumin 3.5 Globulin 3.3 Albumin/Globulin Ratio 1.1 Radiography Diagnostic Testing: Radiology Impression Knee X-Ray 09/05/20 10:30 IMPRESSION: Degenerative arthrosis. Small joint effusion. Electronically Signed: Tad Saha MD at 11:05 EDT , Service support , Discharge Plan Triage Chief Complaint: Lower Extremity Injury ED Provider: Osei Fletcher Dx/Rx/DC Orders Clinical Impression: Effusion of left knee joint Instructions: ED Knee Effusion Prescriptions: No Action ciprofloxacin HCl [Cipro] 500 mg tablet 500 mg PO BID Qty: 14 RF: 0 Victoza 3-Moncho 0.6 mg/0.1 mL (18 mg/3 mL) pen injector 0.6 mg subcut DAILY RF: 0 metformin 500 mg tablet extended release 24 hr 500 mg PO 4X/DAY RF: 0 losartan 50 mg tablet 50 mg PO DAILY RF: 0 calcium carbonate [Calcium 500] 500 mg calcium (1,250 mg) tablet 500 mg PO DAILY RF: 0 cranberry 400 mg capsule 400 mg PO DAILY RF: 0 psyllium husk [Fiber (psyllium husk)] 0.4 gram capsule 0.4 g PO DAILY RF: 0 pravastatin 40 MG tablet 40 mg PO DAILY RF: 0 ergocalciferol (vitamin D2) [Vitamin D2] 50,000 UNIT capsule 5,000 unit PO DAILY RF: 0 aspirin 81 MG tablet,chewable 81 mg PO DAILY@0800 Qty: 30 RF: 0 Primary Care Provider: Kristen Caballero Referrals: Kristen Caballero MD [Primary Care Provider] - 5-7 Days Disposition Disposition: Home, Self Care
--- NOTE | 2020-09-05 10:30 | RAD_ITS ---
STUDY: X-RAY - LEFT KNEE REASON FOR EXAM: Female, 59 years old. Injury/Pain TECHNIQUE: 4 view(s) of the knee. COMPARISON: None. FINDINGS: Normal visualized distal femur. Normal visualized proximal tibia and fibula. Normal proximal tibiofibular articulation. There is mild degenerative arthrosis of the medial femorotibial compartment. Normal lateral femorotibial compartment. Normal patellofemoral articulation. Small joint effusion. RAD/Knee 4 or More Views IMPRESSION: Degenerative arthrosis. Small joint effusion. Electronically Signed: Tad Saha MD at 11:05 EDT , Service support ,
[2020-09-05 10:33] LABS: Absolute Lymphocyte Count 2.54 X10^3/uL (0.83-4.51); Absolute Neutrophil Count 4.2 X10^3/uL (2.0-7.7); Basophil# 0.06 X10^3/uL; Basophil% 0.8 % (0-1); Eosinophil# 0.21 X10^3/uL; Eosinophils% 2.8 % (0-5); Hematocrit 42.1 % (37-47); Hemoglobin 14.4 g/dL (12.0-15.0); Lymphocyte # 2.54 X10^3/ul (0.83-4.51); Mean Corp Hgb Conc 34.2 g/dL (32-36); Mean Corpuscular Volume 81.9 fL (81-99); Mean Platelet Vol. 9.3 fl (6.2-12.0); Monocyte% 5.4 % (0-10); NRBC Flagged by Analyzer 0 % (0-5); Neutrophil # 4.17 X10^3/uL (2.7-7.7); Neutrophil % 55.9 % (47-70); Platelet Count 233 K/mm3 (150-450); RBC Distribution Width SD 41.2 fl (35.1-43.9); Red Blood Count 5.14 M/mm3 (4.2-5.4); White Blood Count 7.5 K/mm3 (4.4-11.0)
[2020-09-05 10:49] LABS: ALB/GLOB Ratio 1.1 RATIO (0.9-2.4); AST(SGOT) 15 U/L (15-37); Alanine Aminotransfer ALT/SGPT 32 U/L (13-56); Albumin, Serum 3.5 g/dL (3.2-5.0); Alkaline Phosphatase 142 U/L (45-117); Anion Gap 9 (5-15); BUN 25 mg/dL (7-18); BUN/Creat Ratio 35.1 RATIO (10-20); Calcium,Total 8.4 mg/dL (8.5-10.1); Chloride 99 mmol/L (98-107); Creatinine, Serum 0.71 mg/dL (0.55-1.02); EST Glomerular Filtration Rate 88 mL/min (>60); Est Glom Filt Rate - Afr Amer 107 mL/min (>60); Estimated Creatinine Clearance 83.94 ml/min; Globulin 3.3 g/dL (2.2-4.2); Glucose 339 mg/dL (74-106); Protein, Total 6.8 g/dL (6.4-8.2); Sodium Level 133 mmol/L (136-145)
[2020-09-05 11:59] VITALS: BP 147/86; PULSE 85; RESP 16; O2SAT 95
--- NOTE | 2020-09-05 12:00 | ED.RN ---
REVIEWED D/C INSTRUCTIONS, FOLLOW UP CARE, AND S/S THAT WOULD WARRANT A RETURN TO THE ED WITH PT. PT VERBALIZED AN UNDERSTANDING AND DENIES FURTHER QUESTIONS FOR THIS RN. PT SKIN P/W/D, RESP EVEN AND UNLABORED, PT A&O X 3, NO DISTRESS NOTED. PT AMBULATED OUT OF ED, GAIT STEADY.
== END 2020-09-05 12:02 | disposition home or self-care (01) ==
PROVIDERS: Emergency Provider Emergency Medicine; PCP Internal Medicine
DX: M25.462 Effusion, left knee (principal); I10 Essential (primary) hypertension; E11.9 Type 2 diabetes mellitus without complications; Z79.84 Long term (current) use of oral hypoglycemic drugs; Z79.82 Long term (current) use of aspirin; Z79.899 Other long term (current) drug therapy
CPT/HCPCS: 73564; 80053; 85025; 93971; 99283

== ENCOUNTER 2023-11-14 13:56 | Emergency (ER) | payer SELFPAY ==
[2023-11-14 13:56] VITALS: BP 175/80; PULSE 96; RESP 18; TEMP 36.8; O2SAT 96; BMI 36.6
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
[2023-11-14 14:22] VITALS: BP 156/109; PULSE 96; RESP 16; O2SAT 98
[2023-11-14 14:27] LABS: Absolute Lymphocyte Count 2.24 X10^3/uL (0.83-4.51); Absolute Neutrophil Count 5.2 X10^3/uL (2.0-7.7); Basophil# 0.06 X10^3/uL; Basophil% 0.7 % (0-1); Eosinophil# 0.12 X10^3/uL; Eosinophils% 1.5 % (0-5); Hematocrit 44.5 % (37-47); Lymphocyte # 2.24 X10^3/ul (0.83-4.51); Lymphocyte % 27.3 % (19-41); Mean Corp Hgb Conc 33.7 g/dL (32-36); Mean Corpuscular Hgb 26.6 pg (27.0-32.0); Mean Corpuscular Volume 78.9 fL (81-99); Mean Platelet Vol. 9.3 fl (6.2-12.0); Monocyte% 6.1 % (0-10); NRBC Flagged by Analyzer 0 % (0-5); Neutrophil # 5.23 X10^3/uL (2.7-7.7); Neutrophil % 63.5 % (47-70); Platelet Count 250 K/mm3 (150-450); RBC Distribution Width CV 14.4 % (11.6-14.6); RBC Distribution Width SD 41.1 fl (35.1-43.9); Red Blood Count 5.64 M/mm3 (4.2-5.4); White Blood Count 8.2 K/mm3 (4.4-11.0)
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
[2023-11-14 14:52] LABS: AST(SGOT) 41 U/L (15-37); Alanine Aminotransfer ALT/SGPT 42 U/L (13-56); Albumin, Serum 3.6 g/dL (3.2-5.0); Alkaline Phosphatase 110 U/L (45-117); Anion Gap 12 (5-15); BUN 17 mg/dL (7-18); BUN/Creat Ratio 28.8 RATIO (10-20); Calcium,Total 9.5 mg/dL (8.5-10.1); Chloride 100 mmol/L (98-107); Creatinine, Serum 0.59 mg/dL (0.55-1.02); EST Glomerular Filtration Rate 109 mL/min (>60); Est Glom Filt Rate - Afr Amer 132 mL/min (>60); Estimated Creatinine Clearance 124.79 ml/min; Globulin 3.7 g/dL (2.2-4.2); Glucose 227 mg/dL (74-106); Potassium 3.8 mmol/L (3.5-5.1); Protein, Total 7.3 g/dL (6.4-8.2); Sodium Level 135 mmol/L (136-145)
[2023-11-14 15:08] LABS: Bacteria 0 SEEN /hpf (None Seen); Mucous, Urine 0 SEEN /hpf (<or=2+); Red Blood Cells-Urine 0 SEEN /hpf (0-5); Squamous Epithelial Cells - UA 0 SEEN /hpf (5-10); White Blood Cells 0 SEEN /hpf (0-5)
[2023-11-14 15:10] LABS: Color, Urine Yellow (Yellow); Glucose, Dipstick 1000 mg/dl (Normal); Ketone-Dipstick 5 mg/dl (Negative); Leukocyte Esterase-Dipstick 25 /ul (Negative); Nitrite-Dipstick Negative (Negative); Occult Blood-Urine Negative /ul (Negative); Protein-Dipstick 30 mg/dl (Negative); Specific Gravity, Urine 1.015 (1.002-1.030); Urine Bilirubin Dipstick Negative (Negative); Urine Clarity Clear (Clear); Urine Urobilinogen Normal (Normal)
[2023-11-14 15:45] VITALS: BP 176/86; PULSE 91; RESP 16; O2SAT 99
[2023-11-14 16:12] VITALS: BP 165/82; PULSE 87; RESP 16; TEMP 36.8; O2SAT 99
== END 2023-11-14 16:14 | disposition home or self-care (01) ==
PROVIDERS: Nurse Practitioner; Emergency Provider Emergency Medicine; PCP Internal Medicine; Visit Provider Emergency Medicine
DX: S16.1XXA Strain of muscle, fascia and tendon at neck level, initial encounter (principal); E11.9 Type 2 diabetes mellitus without complications; S39.011A Strain of muscle, fascia and tendon of abdomen, initial encounter; I10 Essential (primary) hypertension; E66.9 Obesity, unspecified; Z79.82 Long term (current) use of aspirin; Z79.899 Other long term (current) drug therapy; Z79.84 Long term (current) use of oral hypoglycemic drugs; V89.2XXA Person injured in unspecified motor-vehicle accident, traffic, initial encounter
CPT/HCPCS: 70450; 71260; 72125; 74177; 80053; 81001; 85025; 99283; Q9967; A4216

== ENCOUNTER 2023-11-15 15:58 | Emergency (ER) | payer SELFPAY ==
[2023-11-15 16:01] VITALS: BP 146/80; PULSE 92; RESP 18; TEMP 36.1; O2SAT 96; BMI 35.7
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
[2023-11-15] MEDS: Ondansetron ODT 4 MG Tablet PO (17:35)
[2023-11-15] MEDS: HYDROcodone Bitartrate/Apap 5/325 Tablet PO (17:35)
[2023-11-15 17:51] LABS: Absolute Lymphocyte Count 2.56 X10^3/uL (0.83-4.51); Absolute Neutrophil Count 4.1 X10^3/uL (2.0-7.7); Basophil# 0.05 X10^3/uL; Basophil% 0.7 % (0-1); Eosinophil# 0.16 X10^3/uL; Eosinophils% 2.2 % (0-5); Hematocrit 43.3 % (37-47); Hemoglobin 14.3 g/dL (12.0-15.0); Lymphocyte # 2.56 X10^3/ul (0.83-4.51); Lymphocyte % 34.7 % (19-41); Mean Corpuscular Hgb 26.4 pg (27.0-32.0); Mean Platelet Vol. 9.4 fl (6.2-12.0); Monocyte% 6.8 % (0-10); NRBC Flagged by Analyzer 0 % (0-5); Neutrophil # 4.05 X10^3/uL (2.7-7.7); Neutrophil % 54.8 % (47-70); Platelet Count 260 K/mm3 (150-450); RBC Distribution Width CV 14.6 % (11.6-14.6); RBC Distribution Width SD 42.2 fl (35.1-43.9); Red Blood Count 5.41 M/mm3 (4.2-5.4); White Blood Count 7.4 K/mm3 (4.4-11.0)
[2023-11-15 17:59] LABS: ALB/GLOB Ratio 0.9 RATIO (0.9-2.4); AST(SGOT) 18 U/L (15-37); Alanine Aminotransfer ALT/SGPT 33 U/L (13-56); Albumin, Serum 3.3 g/dL (3.2-5.0); Alkaline Phosphatase 96 U/L (45-117); Anion Gap 11 (5-15); BUN 20 mg/dL (7-18); BUN/Creat Ratio 26.7 RATIO (10-20); Calcium,Total 9.1 mg/dL (8.5-10.1); Chloride 103 mmol/L (98-107); Creatinine, Serum 0.75 mg/dL (0.55-1.02); EST Glomerular Filtration Rate 83 mL/min (>60); Est Glom Filt Rate - Afr Amer 100 mL/min (>60); Estimated Creatinine Clearance 96.85 ml/min; Globulin 3.5 g/dL (2.2-4.2); Glucose 330 mg/dL (74-106); Potassium 4.1 mmol/L (3.5-5.1); Protein, Total 6.8 g/dL (6.4-8.2); Sodium Level 137 mmol/L (136-145)
[2023-11-15 19:13] VITALS: BP 140/70; PULSE 72; RESP 18; TEMP 36.7; O2SAT 97
== END 2023-11-15 19:13 | disposition home or self-care (01) ==
PROVIDERS: Nurse Practitioner; Emergency Provider Emergency Medicine; PCP Internal Medicine; Visit Provider Emergency Medicine
DX: S30.1XXA Contusion of abdominal wall, initial encounter (principal); V43.52XA Car driver injured in collision with other type car in traffic accident, initial encounter
CPT/HCPCS: 74177; 80053; 85025; 99283; Q9967; A4216

== ENCOUNTER 2024-10-28 21:26 | Emergency (ER) | payer MEDICARE, SELFPAY ==
[2024-10-28 21:26] VITALS: BP 196/86; PULSE 90; RESP 15; TEMP 36.6; O2SAT 98
--- NOTE | 2024-10-28 21:29 | EKG12_ITS ---
Test Reason : CP Blood Pressure : */* mmHG Vent. Rate : 91 BPM Atrial Rate : 91 BPM P-R Int : 138 ms QRS Dur : 88 ms QT Int : 376 ms P-R-T Axes : 32 24 38 degrees QTcB Int : 462 ms Normal sinus rhythm Normal ECG Confirmed by Alex Briscoe ([id number]), department editor MERARY CASTILLO ([id number]) on 11/01/2024 10:58:00 AM Referred By: Confirmed By: Alex Briscoe
[2024-10-28 22:04] LABS: Hematocrit 43.1 % (37-47); Hemoglobin 14.7 g/dL (12.0-15.0); Immature Granulocytes Count 0.080 X10^3/uL (0.0-0.0); Mean Corp Hgb Conc 34.1 g/dL (32-36); Mean Corpuscular Volume 77.9 fL (81-99); Mean Platelet Vol. 9.0 fl (6.2-12.0); NRBC Flagged by Analyzer 0 % (0-5); Platelet Count 269 K/mm3 (150-450); RBC Distribution Width CV 14.5 % (11.6-14.6); RBC Distribution Width SD 40.0 fl (35.1-43.9); Red Blood Count 5.53 M/mm3 (4.2-5.4); White Blood Count 12.1 K/mm3 (4.4-11.0)
[2024-10-28 22:11] VITALS: O2SAT 94; BMI 34.1
[2024-10-28 22:13] VITALS: BP 160/77; PULSE 86; RESP 21; O2SAT 93
--- NOTE | 2024-10-28 22:23 | RAD_ITS ---
PROCEDURE: CHEST 1 VIEW (PORTABLE) 10/28/2024 REASON FOR EXAM: CHEST PAIN TECHNIQUE: Frontal view of the chest. COMPARISON: 01/05/2023 FINDINGS: Lungs/Pleura: Clear. No pneumothorax or sizable pleural effusion. Heart/Mediastinum: Normal in size. Bones/Soft tissues: Mild degenerative changes of the spine and bilateral shoulders. RAD/Chest 1 View (Portable) IMPRESSION: No acute cardiopulmonary disease. Reading Location: [id number]
[2024-10-28 22:30] LABS: Anion Gap 18 (5-15); BUN 21 mg/dL (4-19); BUN/Creat Ratio 20.1 RATIO (10-20); Calcium,Total 9.9 mg/dL (7.6-11.0); Carbon Dioxide 22.5 mmol/L (21.0-32.0); Chloride 97 mmol/L (98-108); Estimated Creatinine Clearance 66.67 ml/min (50-250); Glucose 172 mg/dL (70-99); Potassium 4.0 mmol/L (3.3-5.1); Troponin T High Sensitivity 7 ng/L (<=14)
--- NOTE | 2024-10-28 22:47 | ED.VIS.CHEST ---
HPI History of Present Illness Chief Complaint: Chest Pain Narrative Narrative: Chief complaint and HPI: Chest pain. 63-year-old female with past medical history of HTN, HLD, DM2 presents for evaluation of sternal chest pain and presyncope. Onset of symptoms approximately 7:30 PM. Patient states she had just finished making zucchini bread when she got up quickly from a seated position. She states she then developed lightheadedness and nausea and felt as if she was going to pass out. She checked her sugar and it was in the 200s and climbing. States she took her insulin. States quickly after she developed some midsternal chest pain and mild shortness of breath. She states her symptoms have improved since being here in the emergency department. Her chest pain has resolved. She states she has been eating and drinking well. She denies any fever, chills, abdominal pain, dysuria, numbness/tingling, weakness, headache. Review of systems: See HPI Medications: As listed on the chart Allergies: As listed on the chart PFSH: Per chart Vital signs: As listed on the chart. Reviewed. Physical exam: Gen: A&O x3, NAD Head: Normocephalic, atraumatic Eyes: No sclera icterus, conjunctiva clear, PERRL ENT: Moist mucous membranes Neck: Trachea midline, No JVD CV: RRR, no murmurs, no peripheral edema, chest wall nontender to palpation Resp: Lungs CTA BL, no w/r/c GI: Abd soft, non-distended, non-tender, no r/r/g Musc: Full ROM, no deformity, strength +5/5 in all extremities Skin: Warm, dry Neuro: Alert, oriented, grossly intact, sensation intact Psych: Cooperative, appropriate mood and affect [facility] Medical History Contusion of left hand Contusion of right hand Contusion of right knee Cellulitis of right knee Cellulitis of fourth toe, left High triglycerides Glucosuria Urinary tract infection with hematuria Urinary urgency Knee pain Diabetes HTN (hypertension) Home Medications ?Medication ?Instructions ?Recorded ?Last Taken ?Type ergocalciferol (vitamin D2) 1,250 5,000 unit PO DAILY 08/19/13 09/20/17 History mcg (50,000 unit) capsule (Vitamin D2) calcium carbonate (Calcium 500) 500 mg PO DAILY 08/27/20 Unknown History cranberry fruit 400 mg capsule 400 mg PO DAILY 08/27/20 Unknown History metformin 500 mg tablet,extended 500 mg PO 4X/DAY 08/27/20 Unknown History release 24 hr psyllium husk 0.4 gram capsule 0.4 g PO DAILY 08/27/20 Unknown History (Fiber (psyllium husk)) pravastatin 20 mg tablet 40 mg PO QHS 10/22/20 Unknown History amlodipine 5 mg tablet 5 mg PO BID 11/14/23 Unknown History aspirin 81 mg tablet,delayed 81 mg PO DAILY 11/14/23 Unknown History release esomeprazole magnesium 40 mg 40 mg PO DAILY 11/14/23 Unknown History capsule,delayed release glipizide 10 mg tablet, extended 10 mg PO BID 11/14/23 Unknown History release 24 hr losartan 100 mg tablet 100 mg PO DAILY 11/14/23 Unknown History magnesium 200 mg tablet 400 mg PO DAILY 11/14/23 Unknown History ondansetron 4 mg disintegrating 4 mg PO Q8H PRN PRN Nausea #10 tabs 11/15/23 Unknown Rx tablet insulin glargine U-300 conc 300 78 unit subcut QHS 10/28/24 Unknown History unit/mL (1.5 mL) subcutaneous pen (Toujeo SoloStar U-300 Insulin) Allergy/AdvReac Type Severity Reaction Status Date / Time morphine Allergy Chest Verified 10/28/24 21:26 tightness Tetanus Vaccines and Toxoid AdvReac Intermediate Swelling Verified 10/28/24 21:26 codeine AdvReac Vomiting Verified 10/28/24 21:26 Family History Mother Diabetes Hypercholesterolemia Hypertension Arthritis Father Diabetes Hypercholesterolemia Hypertension Arthritis Surgical History History of knee surgery Hx of cholecystectomy History of hernia repair History of tonsillectomy Hx of section Social History Smoking Status: Never smoker alcohol intake: never substance use type: does not use what type of physical activity do you participate in: none EXAM Physical Exam Const Vital Signs: 10/28/24 21:26 10/28/24 22:11 10/28/24 22:13 Temperature 97.9 F Temperature Source Oral Pulse Rate 90 86 Respiratory Rate 15 21 H Respiratory Effort Blood Pressure 196/86 H 160/77 H Blood Pressure Mean 122 104 Pulse Ox 98 94 93 Oxygen Delivery Method Room Air Room Air Room Air 10/28/24 22:14 10/28/24 23:00 10/29/24 00:00 Temperature Temperature Source Pulse Rate 16 L 77 Respiratory Rate 14 16 Respiratory Effort Normal Blood Pressure 131/81 H 131/81 H Blood Pressure Mean 97 97 Pulse Ox 95 96 Oxygen Delivery Method Room Air Room Air MDM MDM MDM Narrative Medical decision making narrative: 63-year-old female with past medical history of HTN, HLD, DM2 presents for evaluation of sternal chest pain and presyncope. Onset of symptoms approximately 7:30 PM. Patient states she had just finished making zucchini bread when she got up quickly from a seated position. She states she then developed lightheadedness and nausea and felt as if she was going to pass out. She checked her sugar and she was hyperglycemic. Took her insulin. States she then developed some midsternal chest pain and mild shortness of breath which is why she presented to the emergency department. Symptoms already improving. Differential diagnosis includes but is not limited to vasovagal syncope, symptomatic hyperglycemia, electrolyte abnormality, dehydration, ACS, PE, UTI. On chart review, patient has a stress test from 2019 that was unremarkable. Patient states that she also had a stress test last year which I do not have in our system. She states her stress at t test hat time was unremarkable. Echocardiogram from 2019 showed a EF of 65%. Patient had workup started in triage per protocol. I do agree with the labs that was ordered. NS bolus and aspirin ordered. I did add on urine and D-dimer. EKG and chest x-ray reviewed see below. CBC with mild leukocytosis of 12.1. No anemia. BMP shows hyperglycemia of 172. Mild dehydration. No MARILEE. Troponin unremarkable x 2. D-dimer unremarkable. UA negative for UTI but positive for ketones and glucose. Patient is a diabetic. Ketones may be secondary to mild dehydration as well. On reevaluation, patient's symptoms have resolved. Her at this point in time, no clear etiology for patient's symptoms although low suspicion for ACS. May be secondary to vasovagal response versus dehydration and hyperglycemia. She is gadoterate created to drink plenty of water. Return back to the ED if symptoms change or worsen. Patient stable to discharge home. Follow-up with PCP. EKG: Interpreted by me/EM physician: EKG shows normal sinus rhythm. Heart rate 91. No ST elevation. Diagnostic: Interpreted by me/EM physician: Chest x-ray without pneumonia, effusion, cardiomegaly, pneumothorax. Radiology in agreement. Impression: 1. Chest pain, unclear etiology 2. Presyncope 3. Hyperglycemia known type II diabetic 4. Mild dehydration Lab Data Labs: Laboratory Results - last 24 hr 10/28/24 10/28/24 10/28/24 21:48 22:50 23:30 WBC 12.1 H RBC 5.53 H Hgb 14.7 Hct 43.1 MCV 77.9 L MCH 26.6 L MCHC 34.1 RDW Std Deviation 40.0 RDW Coeff of Kyleigh 14.5 Plt Count 269 MPV 9.0 Immature Gran % (Auto) 0.700 Neut % (Auto) 61.5 Lymph % (Auto) 30.0 [place] % (Auto) 5.6 Eos % (Auto) 1.7 Baso % (Auto) 0.5 Absolute Neuts (auto) 7.4 Absolute Lymphs (auto) 3.61 Nucleated RBC % 0 D-Dimer Quant (PE/DVT) 0.29 Sodium 138 Potassium 4.0 Chloride 97 L Carbon Dioxide 22.5 Anion Gap 18 H BUN 21 H Creatinine 1.05 Estim Creat Clear Calc 66.67 Est GFR (MDRD) Non-Af 59 L BUN/Creatinine Ratio 20.1 H Glucose 172 H Calcium 9.9 Troponin T High Sens 7 Troponin T Hi Sens 2 Hr < 6 Urine Color Yellow Urine Clarity Clear Urine pH 6.0 Ur Specific [place] 1.020 Urine Protein 15 H Urine Glucose (UA) 250 H Urine Ketones 5 H Urine Occult Blood Negative Urine Nitrite Negative Urine Bilirubin Negative Urine Urobilinogen Normal Ur Leukocyte Esterase 25 H Urine RBC 0 SEEN Urine WBC 0-5 SEEN Ur Squamous Epith Cells 0-5 SEEN Urine Bacteria 1+ Urine Mucus 0 SEEN Radiography Diagnostic Testing: Clinical Impression(s) from Imaging Studies Chest X-Ray 10/28/24 22:23 IMPRESSION: No acute cardiopulmonary disease. Reading Location: [id number] Discharge Plan Triage Chief Complaint: Chest Pain ED Provider: Byron Barron Dx/Rx/DC Orders Clinical Impression: Chest pain Instructions: ED Chest Pain [facility] Prescriptions: No Action pravastatin 20 mg tablet 40 mg PO QHS metformin 500 mg tablet extended release 24 hr 500 mg PO 4X/DAY calcium carbonate [Calcium 500] 500 mg calcium (1,250 mg) tablet 500 mg PO DAILY cranberry fruit 400 mg capsule 400 mg PO DAILY Rx Instructions: administer with a meal psyllium husk [Fiber (psyllium husk)] 0.4 gram capsule 0.4 g PO DAILY ergocalciferol (vitamin D2) [Vitamin D2] 50,000 UNIT capsule 5,000 unit PO DAILY Patient Comments: vitamin glipizide 10 mg tablet extended release 24hr 10 mg PO BID amlodipine 5 mg tablet 5 mg PO BID aspirin 81 mg tablet,delayed release (DR/EC) 81 mg PO DAILY esomeprazole magnesium 40 mg capsule,delayed release(DR/EC) 40 mg PO DAILY losartan 100 mg tablet 100 mg PO DAILY magnesium 200 mg tablet 400 mg PO DAILY ondansetron 4 mg tablet,disintegrating 4 mg PO Q8H PRN PRN (Reason: Nausea) Qty: 10 0RF insulin glargine U-300 conc [Toujeo SoloStar U-300 Insulin] 300 unit/mL (1.5 mL) insulin pen 78 unit subcut QHS Primary Care Provider: Kristen Caballero Referrals: Kristen Caballero MD [Primary Care Provider] - 3-5 Days Activity Restrictions/Additional Instructions: Follow-up with your primary care physician. Return back to the ED if symptoms change or worsen. Drink plenty of fluids. Monitor your sugars. Print Language: Latvian Disposition Disposition: Home, Self Care
--- OUTSIDE RECORDS SUMMARY | 2024-10-28 22:56 | XMS RPT_ITS | CCD ---
Author Organization [facility] Care Team Providers Care Instrumental Teacher Name Role Phone Paras Myers Primary Care Unavailable Paras Myers Attending Unavailable Paras Myers Admitting Unavailable Paras Myers Primary Care Unavailable Paras Myers Attending Unavailable Louis Paras Taylor Admitting Unavailable Martina Hale Unavailable Unavailable [place], Kristen Unavailable Unavailable [place], Kristen S Unavailable Unavailable Martina Hale Unavailable Unavailable Unavailable Primary Care Provider Unavailabl e [place], Kristen S Unavailable Unavailable Unavailable ALEXIA BRAY Attending Unavailable ROYAL, KRISTEN S. Primary Care Unavailable ALEXIA BRAY Referring Unavailable ALEXIA BRAY Admitting Unavailable ROYAL, KRISTEN S. Primary Care Unavailable ANTOINE BUNN Attending Unavailable ROYAL, KRISTEN S. Primary Care Unavailable ASHLEY GOMEZ Attending Unavailable ROYAL, KRISTEN S. Primary Care Unavailable Unavailable Unavailable DAVID THOMAS Attending Unavailable ROYAL, KRISTEN S Referring Unavailable ROYAL, KRISTEN S Primary Care Unavailable ROYAL, KRISTEN S Primary Care Unavailable DAVID THOMAS Attending Unavailable ROYAL, KRISTEN S Referring Unavailable [place] DO, Kristen Primary Care Provider [place] DO, Kristen S Primary Care Provider [phone] [place] DO, Kristen S Unavailable [place] Kristen Unavailable Shahid Rai Unavailable Unavailabl Ayala Joe Unavailable Tyler Thompson Unavailable Dr. Kristen Caballero Primary Care Unavailabl e , Dr. Kristen Marino Referring Unavailabl e , Dr. Kristen Marino Attending Unavailabl e Tyler Thompson Referring Unavailable Tyler Thompson Attending Unavailable , Dr. Kristen Marino Primary Care Unavailabl e [place], Dr. Kristen Marino Primary Care Unavailabl e Tyler Thompson Attending Unavailable Self, Referral Referring Unavailable , Dr. Kristen Marino Attending Unavailabl e , Dr. Kristen Marino Primary Care Unavailabl e , Dr. Kristen Marino Referring Unavailabl e Anais Benjamin, Dr. Tyler Francisco Attending U navailable ROYAL, DO KRISTEN S Primary Care Unavailable Bennett, Dr. Ayala Corbett Attending Unavail able ROYAL, DO KRISTEN S Primary Care Unavailable Sparkle, Dr. Shahid Sanderson Attending Unav ailable ROYAL, KRISTEN S Primary Care Unavailable Anais Benjamin, Dr. Tyler Francisco Attending U navailable ROYAL, DO KRISTEN S Primary Care Unavailable Octavio Sadler Unavailable Unavailable [place] DO, Kristen S Unavailable [phone] Paras Garcia CNP Primary Care Provider XENIA REYNOLDS Attending Unavailable PARAS GARCIA Primary Care Unavailable XENIA REYNOLDS Attending Unavailable PARAS GARCIA Primary Care Unavailable LOUIS STEELWORKER-C~[id number], LOUIS Vazquez Primary Car e Unavailable LOUIS PA-CPAULINA Consulting Unavailable LOUIS PA-C~[id number], LOUIS GALLARDO Admitting Unavailable LOUIS PA-C~[id number], LOUIS GALLARDO Attending Unavailable LOUIS PA-C, PAULINA Consulting Unavailable NONE NONE, NONE~[id number] NONE Consulting Unavailable NONE, NONE Consulting Unavailable [place] DO, Kristen S Primary Care Provider [place] DO, Kristen S Unavailable [phone] [place] DO, Kristen S Unavailable [place] DO, Kristen S Primary Care Provider [phone] [place] DO, Kristen S Unavailable [phone] [place] DO, Kristen S Primary Care Provider [phone] [place] DO, Kristen S Unavailable [place] DO, Kristen S Unavailable [place] DO, Kristen S Unavailable ROYAL, KRISTEN Attending Unavailable ROYAL, KRISTEN Consulting Unavailable ROYAL, KRISTEN Primary Care Unavailable ROYAL, KRISTEN Admitting Unavailable PROVIDER, UNKNOWN Consulting Unavailable PROVIDER, UNKNOWN Consulting Unavailable [place] DO, Kristen S Unavailable Royal RUFFIN, Dr. Peterson Primary Care Provider Royal RUFFIN, Dr. Peterson Referring Provider [facility] RAYMOND, Dr. Mccallum Attending Provider Royal RUFFIN, Dr. Peterson Primary Care Provider Royal RUFFIN, Dr. Peterson Referring Provider [facility], Dr. Mccallum Attending Provider Royal RUFFIN, Dr. Peterson Primary Care Provider [phone] Royal RUFFIN, Dr. Peterson Referring [facility] Dr. Mccallum Attending Provider [phone] LAURA LYNCH Attending Unavailable ROYAL, KRISTEN S Referring Unavailable ROYAL, KRISTEN S Primary Care Unavailable LAURA LYNCH Attending Unavailable ROYAL, KRISTEN S Referring Unavailable ROYAL, KRISTEN S Primary Care Unavailable ROYAL, KRISTEN S Referring Unavailable ROYAL, KRISTEN S Primary Care Unavailable LAURA LYNCH Attending Unavailable LAURA LYNCH Attending Unavailable ROYAL, KRISTEN S Referring Unavailable ROYAL, KRISTEN S Primary Care Unavailable CRISLAURA SNIDER Attending Unavailable ROYAL, KRISTEN S Referring Unavailable ROYAL, KRISTEN S Primary Care Unavailable MALLORY BOLAÑOS Attending Unavailable ROYAL, KRISTEN S Referring Unavailable ROYAL, KRISTEN S Primary Care Unavailable LAURA LYNCH Attending Unavailable ROYAL, KRISTEN S Referring Unavailable ROYAL, KRISTEN S Primary Care Unavailable ROYAL, KRISTEN S Primary Care Unavailable CRISLAURA SNIDER Attending Unavailable ROYAL, KRISTEN S Referring Unavailable ROYAL, KRISTEN S Primary Care Unavailable LAURA LYNCH Attending Unavailable ROYAL, KRISTEN S Referring Unavailable ROYAL, KRISTEN S Primary Care Unavailable CRISLAURA Attending Unavailable ROYAL, KRSITEN S Referring Unavailable ROYAL, KRISTEN S Primary Care Unavailable CRISLAURA Attending Unavailable ROYAL, KRISTEN S Referring Unavailable ROYAL, KRISTEN S Primary Care Unavailable CRISLAURA Attending Unavailable ROYAL, KRISTEN S Referring Unavailable ROYAL, KRISTEN S Primary Care Unavailable CRISLAURA Attending Unavailable ROYAL, KRISTEN S Referring Unavailable ROYAL, KRISTEN S Primary Care Unavailable CRISLAURA Attending Unavailable ROYAL, KRISTEN S Referring Unavailable ROYAL, KRISTEN S Primary Care Unavailable CRISLAURA Attending Unavailable ROYAL, KRISTEN S Referring Unavailable ROYAL, KRISTEN S Primary Care Unavailable CRISLAURA Attending Unavailable ROYAL, KRISTEN S Referring Unavailable ROYAL, KRISTEN S Primary Care Unavailable CRISLAURA Attending Unavailable ROYAL, KRISTEN S Referring Unavailable ROYAL, KRISTEN S Primary Care Unavailable CRISLAURA Attending Unavailable ROYAL, KRISTEN S Referring Unavailable ROYAL, KRISTEN S Primary Care Unavailable CRISLAURA Attending Unavailable ROYAL, KRISTEN S Referring Unavailable ROYAL, KRISTEN S Primary Care Unavailable CRISLAURA Attending Unavailable ROYAL, KRISTEN S Referring Unavailable ROYAL, KRISTEN S Primary Care Unavailable ROYAL, KRISTEN S Primary Care Unavailable CRISLAURA Attending Unavailable ROYAL, KRISTEN S Referring Unavailable ROYAL, KRISTEN S Primary Care Unavailable CRISLAURA Attending Unavailable ROYAL, KRISTEN S Referring Unavailable ROYAL, KRISTEN S Primary Care Unavailable CRISLAURA Attending Unavailable ROYAL, KRISTEN S Referring Unavailable ROYAL, KRISTEN S Primary Care Unavailable CRISLAURA Attending Unavailable ROYAL, KRISTEN S Referring Unavailable ROYAL, KRISTEN S Primary Care Unavailable CRISLAURA Attending Unavailable ROYAL, KRISTEN S Referring Unavailable ROYAL, KRISTEN S Primary Care Unavailable CRISLAURA Attending Unavailable ROYAL, KRISTEN S Referring Unavailable ROYAL, KRISTEN S Primary Care Unavailable CRISLAURA Attending Unavailable ROYAL, KRISTEN S Referring Unavailable ROYAL, KRISTEN S Primary Care Unavailable [place], Kristen Primary Care Unavailable [place], Kristen Referring Unavailable Dossi, Xena Attending Unavailable [place], Kristen Primary Care Unavailable Dossi, Xena Attending Unavailable [place], Kristen Referring Unavailable [place], Kristen Primary Care Unavailable Dossi, Xena Attending Unavailable [place], Kristen Referring Unavailable [place], Kristen Referring Unavailable [place], Kristen Primary Care Unavailable Dossi, Xena Attending Unavailable [place], Kristen Primary Care Unavailable Dossi, Xena Attending Unavailable [place], Kristen Referring Unavailable Tin Kelley Attending Unavailable [place], Kristen Primary Care Unavailable Afua Avila Attending Unavailable [place], Kristen Primary Care Unavailable [place], Kristen Primary Care Unavailable Dossi, Xena Attending Unavailable [place], Kristen Referring Unavailable [place], Kristen Primary Care Unavailable Dossi, Xena Attending Unavailable [place], Kristen Referring Unavailable [place], Kristen Primary Care Unavailable Dossi, Xena Attending Unavailable [place], Kristen Referring Unavailable [place], Kristen Referring Unavailable [place], Kristen Primary Care Unavailable Dossi, Xena Attending Unavailable [place], Kristen Referring Unavailable [place], Kristen Primary Care Unavailable Dossi, Xena Attending Unavailable [place], Kristen Primary Care Unavailable [place], Kristen Referring Unavailable Dossi, Xena Attending Unavailable [place], Kristen Primary Care Unavailable [place], Kristen Referring Unavailable Dossi, Xena Attending Unavailable ROYAL, KRISTEN S Referring Unavailable ROYAL, KRISTEN S Primary Care Unavailable ROYAL, KRISTEN S Primary Care Unavailable OCTAVIO SADLER Attending Unavailable ROYAL, KRISTEN S Attending Unavailable ROYAL, KRISTEN S Referring Unavailable ROYAL, KRISTEN S Primary Care Unavailable ROYAL, KRISTEN S Attending Unavailable ROYAL, KRISTEN S Primary Care Unavailable ROYAL, KRISTEN S Attending Unavailable ROYAL, KRISTEN S Primary Care Unavailable ROYAL, KRISTEN S Referring Unavailable ROYAL, KRISTEN S Attending Unavailable ROYAL, KRISTEN S Primary Care Unavailable ROYAL, KRISTEN S Attending Unavailable ROYAL, KRISTEN S Referring Unavailable ROYAL, KRISTEN S Primary Care Unavailable ROYAL, KRISTEN S Attending Unavailable ROYAL, KRISTEN S Primary Care Unavailable ROYAL, KRISTEN S Attending Unavailable ROYAL, KRISTEN S Referring Unavailable ROYAL, KRISTEN S Primary Care Unavailable Allergies Allergy Classification Reported Allergen(s) Allergy Type Date of Onset Reaction(s) Facility Angiotensin Converting Enzyme (DEZ) Inhibitors (12 sources) Lisinopril; Translations: [Lisinopril TABS] Drug Allergy 0 [facility] Repository metFORMIN (12 sources) metFORMIN; Translations: [metformin] Drug Allergy 0 Diarrhea [facility] Opioid Agonists (12 sources) Codeine; Translations: [codeine] Drug Allergy 0 [facility] (20 sources) Codeine; Translations: [codeine] Drug Allergy 0 Nausea and Vomiting, Unknown, Nausea/vomiting , Vomiting [facility] (20 sources) Lisinopril; Translations: [Lisinopril TABS] Drug Allergy 0 Cough, Unknown [facility] [address] Work Phone: (7 sources) metFORMIN; Translations: [metformin] Drug Allergy 9 Diarrhea [facility] [address] Work Phone: (6 sources) Morphine Drug Allergy 5 Facial Swelling, Chest tightness [facility] (2 sources) metFORMIN; Translations: [METFORMIN HCL] Drug Allergy 0 Diarrhea [facility] Work Phone: (4 sources) Lisinopril; Translations: [LISINOPRIL] Drug Allergy 0 [facility] Repository (3 sources) Tetanus Vaccines and Toxoid Propensity to adverse reactions 5 Swelling [facility] Comment on above: swelling (1 source) Morphine Drug Allergy 5 [facility] Repository (1 source) Tetanus Vaccines and Toxoid Drug allergy (disorder) 5 [facility] Repository Medications Current Medications Medication Drug Class(es) Dates Sig (Normalized) Sig (Original) acetaminophen 325 mg / HYDROcodone bitartrate 5 mg oral tablet (3 sources) Opioid Agonist Start: 11-15-2023 take 1 tablet by mouth every six hours as needed for pain Hydrocodone-Aceta minophen 5-325 mg tablet Active 1 {tbl} PO EVERY 6 HOURS NEEDED as needed for Pain 10 3 0 November 15, 2023 Contusion of abdominal wall Contusion of abdominal wall, initial encounter amLODIPine 5 mg oral tablet (20 sources) Dihydropyridine Calcium Channel Eladio Start: 03-20-2023 End: 09-27-2024 take 1 tablet by mouth twice daily amLODIPine (Norvasc) 5 mg tablet Indications: Secondary hypertension Take 1 tablet (5 mg) by mouth 2 times a day. 200 tablet 1 09/27/2024 Active Start: 12-16-2022 take 1 tablet by ita th twice daily amLODIPine (Norvasc) 5 mg tablet Indications: Secondary hypertension Take 1 tablet (5 mg) by mouth 2 times a day. 180 tablet 1 12/16/2022 Active Start: 04-24-2022 take 1 tablet by ita th once daily amLODIPine Besylate 10 MG Oral Tablet TAKE 1 TABLET DAILY. Quantity: 30 Refills: 5 Ordered: 24-Apr-2022 Kristen Caballero DO Start : 24-Apr-2022 Active Start: 02-20-2021 take 1 tablet by ita th once daily amLODIPine Besylate 5 MG Oral Tablet Take 1 tablet daily Quantity: 30 Refills: 5 Ordered: 17-Mar-2022 Kristen Caballero DO Start : 20-Feb-2021 Active aspirin 81 mg delayed release oral tablet (20 sources) Platelet Aggregation Inhibitor, Nonsteroidal Anti-inflammatory Drug Start: 10-28-2023 take 1 tablet by mouth once daily aspirin 81 mg EC tablet Indications: Secondary hypertension Take 1 tablet (81 mg) by mouth once daily. 90 tablet 1 10/28/2023 Active Start: 03-20-2023 take 1 tablet by ita th once daily aspirin 81 mg EC tablet Indications: Secondary hypertension Take 1 tablet (81 mg) by mouth once daily. 90 tablet 1 03/20/2023 Active Start: 11-28-2022 take 1 tablet by ita th once daily aspirin 81 mg EC tablet Indications: Secondary hypertension Take 1 tablet (81 mg) by mouth once daily. 90 tablet 1 11/28/2022 Active Start: 11-01-2020 take 1 tablet by ita th once daily HM Aspirin EC Low Dose 81 MG Oral Tablet Delayed Release TAKE 1 TABLET BY MOUTH EVERY DAY Quantity: 30 Refills: 5 Ordered: 01-Nov-2020 Kristen Caballero DO Start : 01-Nov-2020 Active Start: 03-21-2019 take 1 tablet by ita th once daily Aspirin Low Dose 81 MG Oral Tablet Delayed Release TAKE 1 TABLET BY MOUTH EVERY DAY Quantity: 30 Refills: 5 Ordered: 01-Apr-2022 Kristen Caballero DO Start : 21-Mar-2019 Active take 1 tablet by ita th once daily aspirin 81 mg oral tablet, disintegrating ; 1 tab(s) orally once a day Quantity: 0 Refills: 0 Ordered: 28-Feb-2020 Zeenat New Generic Substitution Allowed azithromycin 250 mg oral tablet (4 sources) Macrolide Antimicrobial Start: 05-23-2024 End: 06-02-2024 azithromycin (Zithromax) 250 mg tablet Indications: Acute non-recurrent maxillary sinusitis Take 2 tablets (500 mg) by mouth once daily for 1 day, THEN 1 tablet (250 mg) once daily for 4 days. Take 2 tabs (500 mg) by mouth today, than 1 daily for 4 days.. 6 tablet 05/23/2024 06/02/2024 Discontinued (Therapy completed) Start: 2023 End: 12-26-2023 azithromycin (Zithromax) 250 mg tablet Indications: Upper respiratory tract infection, unspecified type Take 2 tablets (500 mg) by mouth once daily for 1 day, THEN 1 tablet (250 mg) once daily for 4 days. Take 2 tabs (500 mg) by mouth today, than 1 daily for 4 days.. 6 tablet 2023 12/26/2023 Active betamethasone 0.5 mg/ml / clotrimazole 10 mg/ml topical cream (2 sources) Azole Antifungal, Corticosteroid Start: 09-10-2023 End: 09-17-2023 clotrimazole-betamethasone (LOTRISONE) cream Apply 1 application to affected area two times a day for 7 days. 45 g 1 09/10/2023 09/17/2023 Active Start: 03-24-2023 End: 03-31-2023 clotrimazole-betamethasone ( Lotrisone) cream Apply 1 Application topically twice a day. 0 03/24/2023 03/31/2023 Active blood-glucose meter misc (20 sources) Start: 11-10-2023 blood-glucose meter misc Indications: Type 2 diabetes mellitus with hyperglycemia, without long-term current use of insulin TEST ONCE DAILY 1 each 11/10/2023 Active Start: 11-10-2023 blood-glucose meter misc Indications: Type 2 diabetes mellitus with hyperglycemia, without long-term current use of insulin (Multi) TEST ONCE DAILY 1 each 11/10/2023 Active blood-glucose meter,continuo us (Dexcom G6 Routeman) misc (20 sources) Start: 02-09-2024 blood-glucose meter,continuous (Dexcom G6 Routeman) misc Indications: Type 2 diabetes mellitus without complication, with long-term current use of insulin Use as instructed 1 each 03/09/2024 2:29 PM EST 02/09/2024 Active Start: 02-09-2024 blood-glucose meter,continuous (Dexcom G6 Routeman) misc Indications: Type 2 diabetes mellitus without complication, with long-term current use of insulin (Multi) Use as instructed 1 each 03/09/2024 2:29 PM EST 02/09/2024 Active Start: 02-09-2024 blood-glucose meter,continuous (Dexcom G6 Routeman) misc Indications: Type 2 diabetes mellitus without complication, with long-term current use of insulin (Multi) Use as instructed 1 each 02/09/2024 Active Start: 01-19-2024 End: 02-09-2024 blood-glucose meter,continuo us (Dexcom G6 Routeman) misc Indications: Type 2 diabetes mellitus without complication, with long-term current use of insulin (Multi) Use as instructed 1 each 01/19/2024 02/09/2024 Discontinued (Reorder) Start: 01-19-2024 blood-glucose meter,continuous (Dexcom G6 Routeman) misc Indications: Type 2 diabetes mellitus without complication, with long-term current use of insulin (Multi) Use as instructed 1 each 01/19/2024 Active blood-glucose meter,continuo us (FreeStyle Tri 3 [facility]) misc (4 sources) Start: 12-29-2023 End: 01-19-2024 blood-glucose meter,continuo us (FreeStyle Tri 3 [facility]) misc Indications: Type 2 diabetes mellitus with hyperglycemia, without long-term current use of insulin Use as instructed 1 each 12/31/2023 12:51 PM EDT 12/29/2023 01/19/2024 Discontinued (Therapy completed) Start: 12-29-2023 blood-glucose meter,continuous (FreeStyle Tri 3 [facility]) [facility] Indications: Type 2 diabetes mellitus with hyperglycemia, without long-term current use of insulin Use as instructed 1 each 12/31/2023 12:51 PM EDT 12/29/2023 Active Start: 12-29-2023 blood-glucose meter,continuous (FreeStyle Tri 3 [facility]) [facility] Indications: Type 2 diabetes mellitus with hyperglycemia, without long-term current use of insulin Use as instructed 1 each 12/29/2023 Active blood-glucose sensor (Dexcom G6 Sensor) device (20 sources) Start: 02-09-2024 blood-glucose sensor (Dexcom G6 Sensor) device Indications: Type 2 diabetes mellitus without complication, with long-term current use of insulin Change sensor every 10 days. 3 each 10/17/2024 10:42 AM EDT 02/09/2024 Active Start: 02-09-2024 blood-glucose sensor (Dexcom G6 Sensor) device Indications: Type 2 diabetes mellitus without complication, with long-term current use of insulin Change sensor every 10 days. 3 each 09/15/2024 3:03 PM EDT 02/09/2024 Active Start: 02-09-2024 blood-glucose sensor (Dexcom G6 Sensor) device Indications: Type 2 diabetes mellitus without complication, with long-term current use of insulin Change sensor every 10 days. 3 each 07/20/2024 1:30 PM EDT 02/09/2024 Active Start: 02-09-2024 blood-glucose sensor (Dexcom G6 Sensor) device Indications: Type 2 diabetes mellitus without complication, with long-term current use of insulin Change sensor every 10 days. 3 each 06/22/2024 4:32 PM EDT 02/09/2024 Active Start: 02-09-2024 blood-glucose sensor (Dexcom G6 Sensor) device Indications: Type 2 diabetes mellitus without complication, with long-term current use of insulin Change sensor every 10 days. 3 each 05/26/2024 12:11 PM EDT 02/09/2024 Active Start: 02-09-2024 blood-glucose sensor (Dexcom G6 Sensor) device Indications: Type 2 diabetes mellitus without complication, with long-term current use of insulin (Multi) Change sensor every 10 days. 3 each 04/27/2024 12:30 PM EST 02/09/2024 Active Start: 02-09-2024 blood-glucose sensor (Dexcom G6 Sensor) device Indications: Type 2 diabetes mellitus without complication, with long-term current use of insulin (Multi) Change sensor every 10 days. 3 each 11 04/01/2024 9:30 AM EST 02/09/2024 Active Start: 02-09-2024 blood-glucose sensor (Dexcom G6 Sensor) device Indications: Type 2 diabetes mellitus without complication, with long-term current use of insulin (Multi) Change sensor every 10 days. 3 each 11 03/09/2024 2:29 PM EST 02/09/2024 Active Start: 02-09-2024 blood-glucose sensor (Dexcom G6 Sensor) device Indications: Type 2 diabetes mellitus without complication, with long-term current use of insulin (Multi) Change sensor every 10 days. 3 each 11 02/09/2024 Active Start: 01-19-2024 End: 02-09-2024 blood-glucose sensor (Dexcom G6 Sensor) device Indications: Type 2 diabetes mellitus without complication, with long-term current use of insulin (Multi) Change sensor every 10 days. 3 each 01/19/2024 02/09/2024 Discontinued (Reorder) Start: 01-19-2024 blood-glucose sensor (Dexcom G6 Sensor) device Indications: Type 2 diabetes mellitus without complication, with long-term current use of insulin (Multi) Change sensor every 10 days. 3 each 01/19/2024 Active blood-glucose sensor (FreeSt yle Tri 3 Sensor) device (4 sources) Start: 12-29-2023 End: 01-19-2024 blood-glucose sensor (FreeSt yle Tri 3 Sensor) device Indications: Type 2 diabetes mellitus with hyperglycemia, without long-term current use of insulin Change sensor every 15 days. Check blood sugar 6 times daily 6 each 3 12/31/2023 12:51 PM EDT 12/29/2023 01/19/2024 Discontinued (Therapy completed) Start: 12-29-2023 blood-glucose sensor (FreeStyle Tri 3 Sensor) device Indications: Type 2 diabetes mellitus with hyperglycemia, without long-term current use of insulin Change sensor every 15 days. Check blood sugar 6 times daily 6 each 3 12/31/2023 12:51 PM EDT 12/29/2023 Active Start: 12-29-2023 blood-glucose sensor (FreeStyle Tri 3 Sensor) device Indications: Type 2 diabetes mellitus with hyperglycemia, without long-term current use of insulin Change sensor every 14 days. Check blood sugar 6 times daily 6 each 3 12/29/2023 Active blood-glucose transmitter de vice (Dexcom G6 Transmitter) device (20 sources) Start: 01-19-2024 blood-glucose transmitter device (Dexcom G6 Transmitter) device Indications: Type 2 diabetes mellitus without complication, with long-term current use of insulin Use as instructed 1 each 4 01/19/2024 Active Start: 01-19-2024 blood-glucose transmitter device (Dexcom G6 Transmitter) device Indications: Type 2 diabetes mellitus without complication, with long-term current use of insulin (Multi) Use as instructed 1 each 4 01/19/2024 Active calcium carbonate 1500 mg / cholecalciferol 200 unt oral tablet (20 sources) Vitamin D calcium carbonat e-vitamin D3 600 mg-5 mcg (200 unit) tablet Take by mouth. Active take 1 tablet by mouth once candie y Calcium 600+D 600 mg-200 intl units (5 mcg) oral tablet ; 1 tab(s) orally once a day Quantity: 0 Refills: 0 Ordered: 28-Feb-2020 Zeenat New Generic Substitution Allowed chlorthalidone 25 mg oral tablet (9 sources) Thiazide-like Diuretic Start: 2023 End: 06-18-2024 take 1 tablet by mouth once daily chlorthalidone (Hygroton) 25 mg tablet Indications: Secondary hypertension Take 1 tablet (25 mg) by mouth once daily. 30 tablet 5 2023 02/08/2024 Discontinued (Med List Cleanup) cholecalciferol 0.125 mg oral tablet (4 sources) Vitamin D take 1 tablet by mouth once daily Vitamin D3 125 mcg (5000 intl units) oral tablet ; 1 tab(s) orally once a day Quantity: 0 Refills: 0 Ordered: 16-Jun-2022 Nano Rubin Generic Substitution Allowed ciprofloxacin 500 mg oral tablet (10 sources) Quinolone Antimicrobial Start: 12-07-2023 End: 12-12-2023 take 1 tablet by mouth twice daily ciprofloxacin (Cipro) 500 mg tablet Indications: Acute cystitis with hematuria Take 1 tablet (500 mg) by mouth 2 times a day for 5 days. 10 tablet 12/07/2023 12/12/2023 Active Start: 11-13-2022 End: 11-19-2022 take 1 tablet by mouth twice daily Cipro 500 mg oral tablet ; 1 tab(s) orally 2 times a day Quantity: 14 Refills: 0 Ordered: 13-Nov-2022 Octavio Sadler Start: 13-Nov-2022 End: 19-Nov-2022 Generic Substitution Allowed Comments: Avoid prolonged or excessive exposure to direct and/or artificial sunlight while taking this medication.Check with your doctor before becoming .Do not take dairy products, antacids, or iron preparations within one hour of this medication.Finish all this medication unless otherwise directed by prescriber.Medication should be taken with plenty of water. Start: 08-27-2020 End: 06-17-2022 take 1 tablet by mouth twice daily Ciprofloxacin Hcl (Cipro) 500 mg tablet Discontinued 500 mg PO TWICE A DAY 14 0 June 17, 2022 2:25pm June 17, 2022 2:27pm Comment on above: Avoid prolonged or e xcessive exposure to direct and/or artificial sunlight while taking this medication.Check with your doctor before becoming .Do not take dairy products, antacids, or iron preparations within one hour of this medication.Finish all this medication unless otherwise directed by prescriber.Medication should be taken with plenty of water. Cranberry Fruit (20 sources) Non-Standardized Food Allergenic Extract, Non-Standardized Plant Allergenic Extract Start: 08-28-19 take 1 capsule by mouth once daily Cranberry Fruit 400 mg capsule Active 400 mg PO DAILY August 27, 2020 12:00am administer with a meal cranberry extrac t 200 mg capsule Take by mouth. Active Cranberry CAPS T mendez 1 capsule twice daily Quantity: 0 Refills: 0 Ordered: 04-Aug-2022 DO Active take 1 capsule by mouth once anabelle ly Cranberry oral capsule ; 1 cap(s) orally once a day Quantity: 0 Refills: 0 Ordered: 28-Feb-2020 Zeenat New Generic Substitution Allowed cranberry extrac t 200 mg capsule Take by mouth. 0 Active Cranberry CAPS Q uantity: 0 Refills: 0 Ordered: 02-Nov-2020 DO Active Cranberry 1000 M G Cap Take by mouth. 0 Active diclofenac sodium 0.01 mg/mg topical gel (20 sources) Nonsteroidal Anti-inflammatory Drug Start: 03-30-2023 diclofenac sodium (Voltaren) 1 % gel Indications: osteoarthritis Apply 4.5 inches (4 g) topically 4 times a day as needed (pain). 100 g 1 03/30/2023 Active docusate sodium 100 mg oral tablet (20 sources) End: 02-08-2024 take 1 tablet by mouth once daily docusate sodium (Colace) 100 mg tablet Take 1 tablet (100 mg) by mouth once daily. 02/08/2024 Discontinued (Med List Cleanup) take 1 capsule by mouth once anabelle ly docusate sodium 100 mg oral capsule ; 1 cap(s) orally once a day Quantity: 0 Refills: 0 Ordered: 16-Jun-2022 Nano Rubin Generic Substitution Allowed 0.5 ml dulaglutide 3 mg/ml auto-injector (3 sources) GLP-1 Receptor Agonist Start: 06-28-2023 End: 09-08-2023 TRULICITY 1.5 mg/0.5 mL pen injector Start: 06-28-2023 inject 1.5 mg by sub cutaneous injection every week dulaglutide (Trulicity) 1.5 mg/0.5 mL pen injector injection Indications: Type 2 diabetes mellitus with hyperglycemia, without long-term current use of insulin (Multi) Inject 1.5 mg under the skin 1 (one) time per week. 2 mL 1 06/28/2023 Active dulaglutide 3 mg/0.5 mL pen injector (2 sources) Start: 09-13-2023 inject 3 mg by subcutaneous injection every week dulaglutide 3 mg/0.5 mL pen injector Indications: Type 2 diabetes mellitus with hyperglycemia, without long-term current use of insulin (Multi) Inject 3 mg under the skin 1 (one) time per week. 2 mL 1 09/13/2023 Active ergocalciferol 1.25 mg oral capsule (20 sources) Provitamin D2 Compound Start: 07-22-2019 End: 05-12-2023 take 1 capsule by mouth every week ergocalciferol (Vitamin D-2) 1.25 MG (50841 UT) capsule Take 1 capsule (1,250 mcg) by mouth 1 (one) time per week. 0 07/22/2019 05/12/2023 Discontinued (Med List Cleanup) Start: 07-22-2019 take 1 capsule by mouth once V itamin D (Ergocalciferol) 1.25 MG (64926 UT) Oral Capsule Quantity: 4 Refills: 0 Ordered: 22-Jul-2019 DO Start : 22-Jul-2019 Active Start: 08-19-2013 take 1 capsule by mo uth once daily Ergocalciferol (Vitamin D2) (Vitamin D2) 50,000 UNIT capsule Active 5000 U PO DAILY August 19, 2013 12:00am esomeprazole 40 mg delayed release oral capsule (20 sources) Proton Pump Inhibitor Start: 10-29-2023 End: 11-26-2024 take 1 capsule by mouth once daily before mealtime esomeprazole (NexIUM) [address] capsule Indications: Gastroesophageal reflux disease without esophagitis Take 1 capsule (40 mg) by mouth once daily in the morning. Take before meals. Do not open capsule. 100 capsule 1 09/27/2024 11/26/2024 Active Start: 08-10-2023 End: 10-09-2023 take 1 capsule by mouth once daily before mealtime esomeprazole (NexIUM) [address] capsule Indications: Gastroesophageal reflux disease without esophagitis Take 1 capsule (40 mg) by mouth once daily in the morning. Take before meals. Do not open capsule. 30 capsule 1 08/10/2023 10/09/2023 Active Start: 05-25-2023 take 1 capsule by mo uth once daily esomeprazole (NexIUM) [address] capsule Indications: Gastroesophageal reflux disease without esophagitis Take 1 capsule (20 mg) by mouth once daily. 90 capsule 1 05/25/2023 Active Start: 11-28-2022 take 1 capsule by mo uth once daily esomeprazole (NexIUM) [address] capsule Indications: Gastroesophageal reflux disease without esophagitis Take 1 capsule (20 mg) by mouth once daily. 90 capsule 1 11/28/2022 Active Start: 05-07-2020 take 1 capsule by mo uth once daily Esomeprazole Magnesium 20 MG Oral Capsule Delayed Release TAKE 1 CAPSULE Daily Quantity: 90 Refills: 1 Ordered: 17-Mar-2022 Kristen Caballero DO Start : 07-May-2020 Active Start: 12-29-2018 take 1 tablet by ita th once daily NexIUM 24HR 20 MG Oral Tablet Delayed Release TAKE TABLET Daily Quantity: 90 Refills: 0 Kristen Caballero DO Start : 29-Dec-2018 Active fluconazole 150 mg oral tablet (14 sources) Azole Antifungal Start: 09-10-2023 End: 09-10-2023 take 1 tablet by mouth once fluconazole (DIFLUCAN) 150 mg tablet Take 1 tablet by mouth one time only for 1 dose. 1 tablet 0 09/10/2023 09/10/2023 Active Start: 04-01-2023 End: 09-10-2023 fluconazole (DIFLUCAN) 150 m g tablet Take 1 tablet today, then a 2nd tablet in 72 hours, and 3rd tablet in another 72 hours. 3 tablet 0 04/01/2023 09/10/2023 Discontinued Start: 03-03-2023 End: 03-06-2023 take 1 tablet by mouth once daily fluconazole (Diflucan) 150 mg tablet Indications: Acute vaginitis Take 1 tablet (150 mg) by mouth once daily for 3 days. 3 tablet 0 03/03/2023 03/06/2023 Active Start: 01-27-2023 End: 01-27-2023 take 1 tablet by mouth once fluconazole (Diflucan) 150 mg tablet Indications: Vaginal yeast infection Take 1 tablet (150 mg) by mouth 1 time for 1 dose. 1 tablet 0 01/27/2023 01/27/2023 Active Start: 03-04-2021 Fluconazole 15 0 MG Oral Tablet TAKE 1 TABLET ONCE. MAY REPEAT IN 2 DAYS.. Quantity: 2 Refills: 0 Ordered: 04-Mar-2021 Lynn Mijares Start : 04-Mar-2021 Active Start: 07-10-2020 Fluconazole 15 0 MG Oral Tablet take 1 tablet by mouth Quantity: 1 Refills: 0 Ordered: 10-Jul-2020 Kristen Caballero DO Start : 10-Jul-2020 Active glipiZIDE 10 mg oral tablet (20 sources) Sulfonylurea Start: 06-17-2024 End: 09-27-2024 take 1 tablet by mouth twice daily before mealtime glipiZIDE (Glucotrol) 10 mg tablet Indications: Type 2 diabetes mellitus without complication, with long-term current use of insulin Take 1 tablet (10 mg) by mouth 2 times a day before meals. 180 tablet 3 09/27/2024 Active Start: 03-24-2024 take 1 tablet by ita th twice daily before mealtime glipiZIDE (Glucotrol) 10 mg tablet Indications: Type 2 diabetes mellitus without complication, with long-term current use of insulin Take 1 tablet (10 mg) by mouth 2 times a day before meals. 180 tablet 03/24/2024 Active Start: 02-09-2024 End: 03-24-2024 glipiZIDE (Glucotrol) 5 mg t ablet Indications: Type 2 diabetes mellitus without complication, with long-term current use of insulin (Multi) Take 1 tablet (5mg) before breakfast and 2 tablets (10mg) before dinner. 270 tablet 02/09/2024 03/24/2024 Discontinued (Dose adjustment) Start: 09-24-2022 End: 2023 take 1 tablet by mouth twice daily Glipizide 10 mg tablet extended release 24hr Active 10 mg PO TWICE A DAY November 14, 2023 12:00am Start: 09-24-2022 take 1 tablet by ita th every twenty-four hours glipiZIDE (GLUCOTROL XL) 10mg 24 hr tablet Take 10 mg by mouth. 0 09/24/2022 Active Start: 11-11-2021 take 1 tablet by ita th once daily glipiZIDE XL (Glucotrol XL) 10 mg 24 hr tablet Take 1 tablet (10 mg) by mouth once daily. 0 11/11/2021 Active Start: 11-11-2021 take 1 tablet by ita th twice daily glipiZIDE XL 10 MG Oral Tablet Extended Release 24 Hour Take 1 tablet twice a day Quantity: 60 Refills: 5 Ordered: 17-Mar-2022 Kristen Caballero DO Start : 11-Nov-2021 Active Start: 10-31-2020 take 1 tablet by ita th once daily glipiZIDE ER 5 MG Oral Tablet Extended Release 24 Hour TAKE 1 TABLET DAILY. Quantity: 30 Refills: 5 Ordered: 29-May-2021 Kristen Caballero DO Start : 31-Oct-2020 Active Start: 04-04-2017 End: 08-27-2020 take 2.5 tablets by mouth once daily Glipizide 2.5 tablet extended release 24hr Discontinued 5 mg PO DAILY April 04, 2017 1:00am August 27, 2020 2:11pm hydrALAZINE hydrochloride 10 mg oral tablet (6 sources) Arteriolar Vasodilator Start: 12-29-2023 End: 12-28-2024 take 1 tablet by mouth three times daily hydrALAZINE (Apresoline) 10 mg tablet Indications: Secondary hypertension Take 1 tablet (10 mg) by mouth 3 times a day. 90 tablet 5 12/29/2023 02/08/2024 Discontinued (Med List Cleanup) ibuprofen 600 mg oral tablet (20 sources) Nonsteroidal Anti-inflammatory Drug Start: 09-11-2009 IBUPROFEN 600 MG TAB Take one(1) tablet every six(6) hours as needed for pain. 0 0 09/11/2009 Active Start: 09-11-2009 ibuprofen 600 MG Tab tablet Take by mouth 2 times daily as needed. 0 09/11/2009 Active take 1 tablet by ita th every six hours ibuprofen 200 mg tablet Take 1 tablet (200 mg) by mouth every 6 hours. Active take 2 tablets by mo uth every six hours Ibuprofen TABS TAKE 2 TABLET Every 6 hours PRN Quantity: 0 Refills: 0 Ordered: 04-Aug-2022 DO Active Ibuprofen TABS Q uantity: 0 Refills: 0 Ordered: 10-May-2020 DO Active 3 ml insulin glargine 300 unt/ml pen injector (20 sources) Insulin Analog Start: 03-17-2024 End: 09-29-2024 insulin glargine (Toujeo Max U-300 SoloStar) 300 unit/mL (3 mL) pen Indications: Type 2 diabetes mellitus with hyperglycemia, without long-term current use of insulin Inject 78 Units under the skin once daily. 30 mL 2 10/03/2024 7:41 AM EDT 09/29/2024 Active Start: 03-10-2024 End: 03-17-2024 insulin glargine (Toujeo Max U-300 SoloStar) 300 unit/mL (3 mL) injection Indications: Type 2 diabetes mellitus with hyperglycemia, without long-term current use of insulin Inject 74 Units under the skin once daily. 30 mL 1 03/10/2024 03/17/2024 Discontinued (Reorder) Start: 01-26-2024 End: 03-10-2024 insulin glargine (Toujeo Max U-300 SoloStar) 300 unit/mL (3 mL) injection Indications: Type 2 diabetes mellitus with hyperglycemia, without long-term current use of insulin Inject 70 Units under the skin once daily. 15 mL 4 01/26/2024 03/10/2024 Discontinued (Reorder) Start: 01-05-2024 End: 01-26-2024 insulin glargine (Toujeo Max U-300 SoloStar) 300 unit/mL (3 mL) injection Indications: Type 2 diabetes mellitus with hyperglycemia, without long-term current use of insulin Inject 52 Units under the skin once daily at bedtime. Take as directed per insulin instructions. 15 mL 1 01/05/2024 01/26/2024 Discontinued (Reorder) Start: 12-15-2023 End: 01-05-2024 insulin glargine (Lantus Luisa ostar U-100 Insulin) 100 unit/mL (3 mL) pen Indications: Type 2 diabetes mellitus with hyperglycemia, without long-term current use of insulin Inject 36 Units under the skin once daily in the morning. Take as directed per insulin instructions. 45 mL 12/15/2023 01/05/2024 Discontinued (Therapy completed) Start: 12-01-2023 End: 12-15-2023 insulin glargine (Lantus Luisa ostar U-100 Insulin) 100 unit/mL (3 mL) pen Indications: Type 2 diabetes mellitus with hyperglycemia, without long-term current use of insulin Inject 30 Units under the skin once daily in the morning. Take as directed per insulin instructions. 45 mL 12/01/2023 12/15/2023 Discontinued (Reorder) Start: 11-16-2023 End: 12-01-2023 inject 10 [IU] by subcutaneous injection once daily in the morning insulin glargine (Lantus Solostar U-100 Insulin) 100 unit/mL (3 mL) pen Indications: Type 2 diabetes mellitus with hyperglycemia, without long-term current use of insulin Inject 10 Units under the skin once daily in the morning. Take as directed per insulin instructions. 15 mL 11/16/2023 12/01/2023 Discontinued (Reorder) Start: 06-16-2022 End: 06-16-2022 inject 10 [IU] by subcutaneous injection once daily at bedtime insulin glargine (Lantus) 100 unit/mL injection Indications: Type 2 diabetes mellitus with hyperglycemia, without long-term current use of insulin ([facility]) Inject 10 Units under the skin once daily at bedtime. Take as directed per insulin instructions 10 mL 11 06/16/2022 06/16/2022 Discontinued (Therapy completed) Start: 02-06-2021 Lantus SoloSta r 100 UNIT/ML Subcutaneous Solution Pen-injector INJECT 30 UNIT Daily Quantity: 1 Refills: 5 Ordered: 27-Feb-2021 Kristen Caballero DO Start : 06-Feb-2021 Active Please give needles for lantus 30 day supply 11 refills Start: 02-06-2021 Lantus SoloSta r 100 UNIT/ML Subcutaneous Solution Pen-injector INJECT 20 UNIT Daily Quantity: 1 Refills: 5 Ordered: 20-Feb-2021 Kristen Caballero DO Start : 06-Feb-2021 Active Please give needles for lantus 30 day supply 11 refills Start: 02-06-2021 inject 10 [IU] by lucero bcutaneous injection once daily Lantus SoloStar 100 UNIT/ML Subcutaneous Solution Pen-injector INJECT 10 UNIT Daily Quantity: 1 Refills: 5 Ordered: 06-Feb-2021 Kristen Caballero DO Start : 06-Feb-2021 Active Please give needles for lantus 30 day supply 11 refills inulin 1500 mg chewable tablet (18 sources) End: 05-12-2023 inulin 1.5 gram tablet,chewa ble Chew 1 tablet once daily. 0 05/12/2023 Discontinued (Med List Cleanup) Inulin (FIBER CH OICE PO) Take by mouth. 0 Active lansoprazole 30 mg delayed release oral capsule (2 sources) Proton Pump Inhibitor Start: 05-28-2023 End: 07-27-2023 take 1 capsule by mouth once daily lansoprazole (Prevacid) [address] capsule Indications: Gastroesophageal reflux disease without esophagitis Take 1 capsule (30 mg) by mouth once daily. Do not crush or chew. 30 capsule 5 05/28/2023 07/27/2023 Active linaclotide 0.145 mg oral capsule (18 sources) Guanylate Cyclase-C Agonist Start: 09-24-2023 End: 09-23-2024 take 1 capsule by mouth once daily before mealtime linaCLOtide (Linzess) 145 mcg capsule Indications: Change in bowel function Take 1 capsule (145 mcg) by mouth once daily in the morning. Take before meals. Do not crush or chew. 16 capsule 09/24/2023 2023 Discontinued (Med List Cleanup) Start: 11-02-2020 End: 05-12-2023 take 1 capsule by mouth once daily linaCLOtide (Linzess) 145 mcg capsule Take by mouth once daily. 0 11/02/2020 05/12/2023 Discontinued (Med List Cleanup) LORazepam 0.5 mg oral tablet (20 sources) Benzodiazepine Start: 10-26-2024 LORazepam (Ati van) 0.5 mg tablet Indications: Claustrophobia Take 1/2-hour prior to your exam and please have a industrial truck driver to take you home. Do not operate heavy machinery for 6 hours after ingestion of this medicine 1 tablet 10/26/2024 Active Start: 06-10-2021 End: 09-11-2023 LORazepam (Ativan) 0.5 mg ta blet Take by mouth. 06/10/2021 09/11/2023 Discontinued (Med List Cleanup) losartan potassium 100 mg oral tablet (20 sources) Angiotensin 2 Receptor Eladio Start: 03-20-2023 End: 09-27-2024 take 1 tablet by mouth once daily losartan (Cozaar) 100 mg tablet Indications: Secondary hypertension Take 1 tablet (100 mg) by mouth once daily. 100 tablet 1 09/27/2024 Active Start: 11-28-2022 take 1 tablet by ita th once daily losartan (Cozaar) 100 mg tablet Indications: Secondary hypertension Take 1 tablet (100 mg) by mouth once daily. 90 tablet 1 11/28/2022 Active Start: 02-06-2021 take 1 tablet by ita th once daily Losartan Potassium 100 MG Oral Tablet TAKE 1 TABLET BY MOUTH EVERY DAY Quantity: 30 Refills: 5 Ordered: 17-Mar-2022 Kristen Caballero DO Start : 06-Feb-2021 Active Start: 07-19-2019 take 1 tablet by ita th once daily Losartan Potassium 50 MG Oral Tablet TAKE ONE TABLET BY MOUTH EVERY DAY Quantity: 90 Refills: 1 Ordered: 01-Nov-2020 Kristen Caballero DO Start : 19-Jul-2019 Active take 2 tablets by mo uth once daily losartan 25 MG Tab tablet Take 50 mg by mouth daily. 0 Active Magnesium (8 sources) Start: 11-14-2023 take 2 tablets by [facility] once daily Magnesium 200 mg tablet Active 400 mg PO DAILY November 14, 2023 12:00am Magnesium CAPS T MENDEZ 1 CAPSULE Daily Quantity: 0 Refills: 0 Ordered: 23-Jun-2022 DO Active magnesium gluconate 500 mg oral tablet (3 sources) Start: 06-16-2022 take 1 tablet by mouth three times daily magnesium gluconate 500 mg oral tablet ; 1 tab(s) orally 3 times a day Quantity: 12 Refills: 0 Ordered: 16-Jun-2022 Shahid Rai Start: 16-Jun-2022 Generic Substitution Allowed magnesium oxide-Mg AA chelate (Magnesium, oxide/AA chelate,) 300 mg capsule (20 sources) take 1 capsule by mouth once daily magnesium oxide-Mg AA chelate (Magnesium, oxide/AA chelate,) 300 mg capsule Take 1 capsule (300 mg) by mouth once daily. Active take 1 capsule by mouth once anabelle ly magnesium oxide-Mg AA chelate (Magnesium, oxide/AA chelate,) 300 mg capsule Take 1 capsule (300 mg) by mouth once daily. 0 Active magnesium sulfate 0.0277 meq/ml / potassium sulfate 0.0374 meq/ml / sodium sulfate 0.257 meq/ml oral solution (1 source) Start: 11-02-2020 End: 03-30-2023 sodium,potassium,mag sulfates (Suprep Bowel Prep Kit) 17.5-3.13-1.6 gram recon soln solution Take by mouth. 0 11/02/2020 03/30/2023 Discontinued (Therapy completed) meloxicam 15 mg oral tablet (20 sources) Nonsteroidal Anti-inflammatory Drug Start: 08-29-2020 End: 09-11-2023 meloxicam (Mobic) 15 mg tablet Take by mouth once daily. 08/29/2020 09/11/2023 Discontinued (Med List Cleanup) 24 hr metFORMIN hydrochloride 500 mg extended release oral tablet (20 sources) Biguanide Start: 11-28-2022 End: 12-26-2024 take 2 tablets by mouth twice daily metFORMIN XR 500 mg 24 hr tablet Indications: Type 2 diabetes mellitus with hyperglycemia, without long-term current use of insulin Take 2 tablets (1,000 mg) by mouth 2 times a day. Do not crush, chew, or split. 400 tablet 1 09/27/2024 12/26/2024 Active Start: 08-27-2020 take 1 tablet by ita th four times daily Metformin 500 mg tablet extended release 24 hr Active 500 mg PO 4 TIMES DAILY August 27, 2020 12:00am Start: 12-13-2019 take 1 tablet by ita th every twenty-four hours metFORMIN ER (GLUCOPHAGE XR) 500 mg 24 hr tablet Take 1,000 mg by mouth. 0 12/13/2019 Active Start: 10-19-2019 take 2 tablets by mo uth twice daily metFORMIN HCl ER 500 MG Oral Tablet Extended Release 24 Hour TAKE TWO TABLETS BY MOUTH TWO TIMES A DAY Quantity: 240 Refills: 1 Ordered: 17-Mar-2022 Kristen Caballero DO Start : 19-Oct-2019 Active Start: 10-19-2019 take 2 tablets by mo uth every twenty-four hours in the morning metFORMIN XR (Glucophage-XR) 500 mg 24 hr tablet Take 2 tablets (1,000 mg) by mouth in the morning and 2 tablets (1,000 mg) before bedtime. 0 10/19/2019 Active Start: 10-19-2019 take 2 tablets by mo uth once daily metFORMIN HCl ER (MOD) 500 MG Oral Tablet Extended Release 24 Hour TAKE 2 TABLET Daily Quantity: 60 Refills: 5 Kristen Caballero DO Start : 19-Oct-2019 Active naproxen 500 mg oral tablet (10 sources) Nonsteroidal Anti-inflammatory Drug Start: 12-08-2019 End: 09-11-2023 naproxen (Naprosyn) 500 mg tablet Take by mouth every 12 hours. 12/08/2019 09/11/2023 Discontinued (Med List Cleanup) Start: 12-08-2019 take 1 tablet by ita th twice daily as needed Naproxen 500 MG Oral Tablet TAKE 1 TABLET TWICE DAILY NEEDED. Quantity: 20 Refills: 0 Kristen Caballero DO Start : 08-Dec-2019 Active nitrofurantoin, macrocrystals 25 mg / nitrofurantoin, monohydrate 75 mg oral capsule (2 sources) Nitrofuran Antibacterial Start: 05-27-2023 End: 06-03-2023 take 1 capsule by mouth twice daily nitrofurantoin, macrocrystal-monohydrate, (Macrobid) 100 mg capsule Indications: Acute cystitis with hematuria Take 1 capsule (100 mg) by mouth 2 times a day for 7 days. 14 capsule 0 05/27/2023 06/03/2023 Active ondansetron 4 mg disintegrating oral tablet (5 sources) Serotonin-3 Receptor Antagonist Start: 11-15-2023 take 1 tablet by mouth every eight hours as needed for nausea Ondansetron 4 mg tablet,disintegrating Active 4 mg PO EVERY 8 HOURS NEEDED as needed for Nausea 10 0 November 15, 2023 12:00am Start: 07-01-2022 take 1 tablet by ita th every eight hours ondansetron 4 mg oral tablet, disintegrating ; 1 tab(s) orally every 8 hours Quantity: 15 Refills: 0 Ordered: 01-Jul-2022 Ayala Guajardo Start: 01-Jul-2022 Generic Substitution Allowed pantoprazole 40 mg delayed release oral tablet (18 sources) Proton Pump Inhibitor Start: 09-11-2023 End: 02-09-2024 take 1 tablet by mouth once daily before mealtime pantoprazole (ProtoNix) 40 mg EC tablet Indications: Gastroesophageal reflux disease without esophagitis Take 1 tablet (40 mg) by mouth once daily in the morning. Take before meals. Do not crush, chew, or split. 30 tablet 1 09/11/2023 02/09/2024 Discontinued (Therapy completed) phenazopyridine hydrochloride 200 mg oral tablet (1 source) Start: 11-13-2022 take 1 tablet by mouth three times daily as needed for pain Pyridium 200 mg oral tablet ; 1 tab(s) orally 3 times a day, As Needed -for pain Quantity: 12 Refills: 0 Ordered: 13-Nov-2022 Octavio Sadler Start: 13-Nov-2022 Generic Substitution Allowed Comments: May discolor urine or feces.Medication should be taken with plenty of water.Take with food or milk. Comment on above: May discolor urine o r feces.Medication should be taken with plenty of water.Take with food or milk. pravastatin sodium 20 mg oral tablet (20 sources) HMG-CoA Reductase Inhibitor Start: 03-17-2022 End: 01-27-2023 take 1 tablet by mouth once daily pravastatin (Pravachol) 40 mg tablet Indications: Hyperlipidemia LDL goal Take 1 tablet (40 mg) by mouth once daily. 90 tablet 1 11/28/2022 01/27/2023 Discontinued (Therapy completed) Start: 10-22-2020 End: 09-27-2024 take 2 tablets by mouth once daily pravastatin (Pravachol) 20 mg tablet Indications: Hyperlipidemia LDL goal Take 2 tablets by mouth daily (having problems swallowing the larger tablet) 200 tablet 1 09/27/2024 Active Start: 12-29-2018 take 1 tablet by ita th once daily at bedtime Pravastatin Sodium 20 MG Oral Tablet TAKE 1 TABLET ONE TIME DAILY AT BEDTIME Quantity: 90 Refills: 1 Ordered: 10-Jul-2021 Kristen Caballero DO Start : 29-Dec-2018 Active Start: 05-28-2013 End: 10-22-2020 take 1 tablet by mouth once daily Pravastatin 40 MG tablet Discontinued 40 mg PO DAILY May 28, 2013 12:00am October 22, 2020 2:11pm Probiotic Product (PROBIOTIC-10 PO) (1 source) take 1 capsule by mouth once daily Probiotic Product (PROBIOTIC-10 PO) Take 1 capsule by mouth daily. 0 Active psyllium 400 mg oral capsule (12 sources) Start: 08-27-2020 End: 09-11-2023 Psyllium Husk (Fiber (Psyllium Husk)) 0.4 gram capsule Active 0.4 g PO DAILY August 27, 2020 12:00am repaglinide 1 mg oral tablet (5 sources) Glinide Start: 12-16-2023 End: 01-05-2024 take 1 tablet by mouth three times daily before mealtime repaglinide (Prandin) 1 mg tablet Indications: Type 2 diabetes mellitus with hyperglycemia, without long-term current use of insulin Take 1 tablet (1 mg) by mouth 3 times a day before meals. 90 tablet 12/18/2023 11:10 AM EDT 12/16/2023 01/05/2024 Discontinued (Alternate therapy) Start: 12-15-2023 take 1 tablet by ita th three times daily before mealtime repaglinide (Prandin) 1 mg tablet Indications: Type 2 diabetes mellitus with hyperglycemia, without long-term current use of insulin Take 1 tablet (1 mg) by mouth 3 times a day before meals. 90 tablet 12/15/2023 Active sulfamethoxazole 800 mg / trimethoprim 160 mg oral tablet (11 sources) Dihydrofolate Reductase Inhibitor Antibacterial, Sulfonamide Antimicrobial Start: 02-08-2024 End: 02-18-2024 take 1 tablet by mouth twice daily sulfamethoxazole-trimethoprim (Bactrim DS) 800-160 mg tablet Indications: Acute cystitis without hematuria Take 1 tablet by mouth 2 times a day for 10 days. 20 tablet 02/08/2024 02/18/2024 Active End: 2023 take 1 tablet by mouth twice daily sulfamethoxazole-trimethoprim (Bactrim) 400-80 mg tablet Take 1 tablet by mouth 2 times a day. For current UTI 2023 Discontinued (Med List Cleanup) tirzepatide (Mounjaro) 5 mg/0.5 mL pen injector (1 source) Start: 10-11-2023 End: 11-03-2023 inject 5 mg by subcutaneous injection every week tirzepatide (Mounjaro) 5 mg/0.5 mL pen injector Indications: Type 2 diabetes mellitus with hyperglycemia, without long-term current use of insulin (Multi) Inject 5 mg under the skin 1 (one) time per week. 2 mL 1 10/11/2023 11/03/2023 Discontinued (Dose adjustment) tirzepatide (Mounjaro) 7.5 mg/0.5 mL pen injector (2 sources) Start: 11-03-2023 End: 11-16-2023 inject 7.5 mg by subcutaneous injection every week tirzepatide (Mounjaro) 7.5 mg/0.5 mL pen injector Indications: Type 2 diabetes mellitus with hyperglycemia, without long-term current use of insulin (Multi)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 in the calculated MCHC value (in the range of 30 to 32 g/dL) is most likely not clinically significant; however, it should be interpreted with caution in correlation with other red cell parameters and the patient's clinical condition. Performed By: #### 1 0256, 6399 #### [facility] [place] [address] Oss Architect: Khris Birch MD MCV (RBC) [Entitic vol] 81.2 fL Normal 80.0-100.0 [facility] Comment on above: Performed By: #### 1 0256, 6399 #### [facility] of [address] [place] [address] Oss Architect: Khris Birch MD Monocytes (Bld) [#/Vol] 0.524 10*3/uL Normal 200-950 [facility] Comment on above: Performed By: #### 1 0256, 6399 #### [facility] of [address], [address] [place] [address] Oss Architect: Khris Birch MD Monocytes/100 WBC (Bld) 7.6 % Normal [facility] Comment on above: Performed By: #### 1 0256, 6399 #### [facility] [place] [address] Oss Architect: Khris Birch MD Neutrophils (Bld) [#/Vol] 3.864 10*3/uL Normal 1956-2631 [facility] Comment on above: Performed By: #### 1 0256, 6399 #### [facility] [place] [address] Oss Architect: Khris Birch MD Neutrophils/100 WBC (Bld) 56 % Normal [facility] Comment on above: Performed By: #### 1 0256, 6399 #### [facility] [place] [address] Oss Architect: Khris Birch MD Platelet mean volume (Bld) [Entitic vol] 9.6 fL Normal 7.5-12.5 [facility] Comment on above: Performed By: #### 1 0256, 6399 #### [facility] [place] [address] Oss Architect: Khris Birch MD Platelets (Bld) [#/Vol] 275 10*3/uL Normal 140-400 [facility] Comment on above: Performed By: #### 1 0256, 6399 #### [facility] [place] [address] Oss Architect: Khris Birch MD RBC (Bld) [#/Vol] 5.49 10*6/uL High 3.80-5.10 [facility] Comment on above: Performed By: #### 1 0256, 6399 #### [facility] [address], [address] [place] [id number] Oss Architect: Khris Birch MD WBC (Bld) [#/Vol] 6.9 10*3/uL Normal 3.8-10.8 [facility] Comment on above: Performed By: #### 1 0256, 6399 #### [facility] [address], [address] [place] [address] Oss Architect: Khris Birch MD CBC W Auto Differential pane l (Bld)on 10-20-2024 Basophils (Bld) [#/Vol] 41 10*3/uL [facility] Basophils/100 WBC (Bld) 0.6 % [facility] Eosinophils (Bld) [#/Vol] 152 10*3/uL [facility] Eosinophils/100 WBC (Bld) 2.2 % [facility] Erythrocyte distribution width (RBC) [Ratio] 14.7 % 11.0 - 15.0 % [facility] Hematocrit (Bld) [Volume fraction] 44.6 % 35.0 - 45.0 % [facility] Hemoglobin (Bld) [Mass/Vol] 14.6 g/dL 11.7 - 15.5 g/dL [facility] Interpretation and review of laboratory results Abnormal [facility] Lymphocytes (Bld) [#/Vol] 2318 10*3/uL [facility] Lymphocytes/100 WBC (Bld) 33.6 % [facility] MCH (RBC) [Entitic mass] 26.6 pg Low 27.0 - 33.0 pg [facility] MCHC (RBC) [Mass/Vol] 32.7 g/dL 32.0 - 36.0 g/dL [facility] Comment on above: For adults, a slight decrease in the calculated MCHC value (in the range of 30 to 32 g/dL) is most likely not clinically significant; however, it should be interpreted with caution in correlation with other red cell parameters and the patient's clinical condition. MCV (RBC) [Entitic vol] 81.2 fL 80.0 - 100.0 fL [facility] Monocytes (Bld) [#/Vol] 524 10*3/uL [facility] Monocytes/100 WBC (Bld) 7.6 % [facility] Neutrophils (Bld) [#/Vol] 3864 10*3/uL [facility] Neutrophils/100 WBC (Bld) 56 % [facility] Platelet mean volume (Bld) [Entitic vol] 9.6 fL 7.5 - 12.5 fL [facility] Platelets (Bld) [#/Vol] 275 10*3/uL [facility] RBC (Bld) [#/Vol] 5.49 10*6/uL High [facility] WBC (Bld) [#/Vol] 6.9 10*3/uL [facility] CT ABDOMEN PELVIS W IV CONTR Darek 10-20-2024 CT ABDOMEN PELVIS W IV CONTRAST Interpreted By: Humera Navarro, STUDY: CT ABDOMEN PELVIS W IV CONTRAST; 10/20/2024 3:37 pm INDICATION: Signs/Symptoms:LEFT UPPER QUADRANT ABDOMINAL. COMPARISON: CT abdomen pelvis 07/01/2022 ultrasound 01/15/2023 ACCESSION NUMBER(S): [id number] ORDERING CLINICIAN: KRISTEN CABALLERO TECHNIQUE: Axial CT of the abdomen and pelvis was performed following intravenous administration of 71 ml of contrast Omnipaque 350 with coronal and sagittal reconstruction. FINDINGS: Lower chest: No focal consolidation or pleural effusion. Liver: No mass. Improved hepatomegaly measuring 22 cm in the craniocaudal dimension, previously 24 cm. Hepatic steatosis again noted. Biliary: No intrahepatic or extrahepatic bile duct dilation. No cholelithiasis. Spleen: No mass. No splenomegaly. 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 Additional unchanged 1.5 cm peripherally calcified structure in the pancreatic body, possibly a calcified splenic artery aneurysm or involuting pseudocyst. No mass, main duct dilation or acute inflammation. Adrenals: Normal. Kidneys: No suspicious mass, calculus or hydronephrosis. GI tract: Stable small hiatal hernia. Large amount of stool is present throughout the colon. No bowel wall thickening or dilation. The appendix is normal. Lymph nodes: No abdominopelvic lymphadenopathy. Mesentery/peritoneum: No free fluid, free air or fluid collection. Vasculature: Mild abdominal aortic atherosclerotic calcifications without aneurysmal dilation. Pelvis: No free fluid, free air or fluid collection. The bladder is underdistended and partially limited for evaluation. The uterus is grossly unremarkable. Bones/Soft tissues: Prior infraumbilical ventral hernia repair without recurrent hernia. A small fat containing umbilical hernia is stable. Multilevel degenerative disease. IMPRESSION: No acute abdominopelvic process to account for patient's pain. 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 Improved hepatomegaly with persistent hepatic steatosis. MACRO: None Signed by: Humera Navarro 10/21/2024 9:48 AM Dictation workstation: [id number] [facility] HEPATIC FUNCTION PANELon ALBUMIN Normal [facility] Comment on above: Performed By: #### 1 0256, 6399 #### [facility] [address], [address] [place] [address] Oss Architect: Khris Birch MD ALBUMIN/GLOBULIN RATIO Normal [facility] Comment on above: Performed By: #### 1 0256, 6399 #### [facility] [place] [address] [employer]ss Architect: Khris Birch MD ALKALINE PHOSPHATASE Normal [facility] Comment on above: Performed By: #### 1 0256, 6399 #### [facility] [place] [address] Oss Architect: Khris Birch MD ALT Normal [facility] Comment on above: Performed By: #### 1 0256, 6399 #### [facility] [place] [address] Oss Architect: Khris Birch MD AST Normal [facility] Comment on above: Performed By: #### 1 0256, 6399 #### [facility] [address], [address] [place] [address] Oss Architect: Khris Birch MD BILIRUBIN, DIRECT Normal [facility] Comment on above: Performed By: #### 1 0256, 6399 #### [facility] [place] [address] [address] , [address] [place] [address] Oss Architect: Khris Birch MD BILIRUBIN, INDIRECT Normal [facility] Comment on above: Performed By: #### 1 0256, 6399 #### [facility] [place] [address], [address] [place] [address] Oss Architect: Khris Birch MD BILIRUBIN, TOTAL Normal [facility] Comment on above: Performed By: #### 1 0256, 6399 #### [facility] [place] [address] [address] , [address] [place] [address] Oss Architect: Khris Birch MD GLOBULIN Normal [facility] Comment on above: Performed By: #### 1 0256, 6399 #### [facility] [place] [address] [address] , [address] [place] [address] Oss Architect: Khris Birch MD PROTEIN, TOTAL Normal [facility] Comment on above: Performed By: #### 1 0256, 6399 #### [facility] of [address], [address] [place] [address] Oss Architect: Khris Birch MD Hepatic function 2000 panelo n 10-20-2024 Albumin [Mass/Vol] 4.4 g/dL 3.6 - 5.1 g/dL [facility] Albumin/Globulin [Mass ratio] 1.7 {ratio} [facility] ALP [Catalytic activity/Vol] 67 U/L 37 - 153 U/L [facility] ALT [Catalytic activity/Vol] 18 U/L 6 - 29 U/L [facility] AST [Catalytic activity/Vol] 17 U/L 10 - 35 U/L [facility] Bilirubin [Mass/Vol] 0.8 mg/dL 0.2 - 1.2 mg/dL [facility] Bilirubin.direct [Mass/Vol] 0.1 mg/dL < OR = 0.2 [facility] Bilirubin.indirec t [Mass/Vol] 0.7 mg/dL [facility] Globulin (S) [Mass/Vol] 2.6 g/dL [facility] Protein [Mass/Vol] 7.0 g/dL 6.1 - 8.1 g/dL [facility] LIPASEon 10-20-2024 LIPASE Normal [facility] Comment on above: Performed By: #### 1 0256, 6399 #### [facility] [address], [address] [place] [address] Oss Architect: Khris Birch MD Lipaseon 10-20-2024 Lipase [Catalytic activity/Vol] 17 U/L 7 - 60 U/L [facility] No Panel Informationon 10-20 [facility] POCT UA Automated manually r esultedon 10-19-2024 Appearance (U) Clear Clear [facility] Work Phone: [phone] Glucose Test strip (U) [Mass/Vol] Negative NEGATIVE mg/dl [facility] Work Phone: [phone] Hemoglobin Ql (U) Negative NEGATIVE [facility] Work Phone: [phone] Interpretation and review of laboratory results Normal [facility] Work Phone: [phone] Leukocyte esterase Test strip Ql (U) Negative NEGATIVE [facility] Work Phone: [phone] Nitrite Ql (U) Negative NEGATIVE [facility] Work Phone: )[phone] pH (U) 6.0 [pH] No Reference Range Established [facility] Work Phone: [phone] POC Bilirubin, Urine Negative NEGATIVE [facility] Work Phone: [phone] POC Color, Urine Yellow Straw, Elliott ow, Light-Yellow [facility] Work Phone: )[phone] POC Ketones, Urine Negative NEGATIVE mg/dl [facility] Work Phone: [phone] POC Protein, Urine Negative NEGATIVE mg/dl [facility] Work Phone: [phone] POC Specific Bessie, Urine 1.010 1.005 - 1.035 [facility] Work Phone: POC Urobilinogen, Urine 0.2 0.2, 1.0 EU/DL [facility] Work Phone: [facility] Work Phone: Chiropractic Reporton 2024 Chiropractic Report [facility] [address] [place] [address] OFFICE VISIT Date of Service: 10/03/24 MR#: [id number] Acct: [id number] Name: ALINA PATEL Rep #: [id number] : 1960 Provider: RAYMOND Covington Age/Sex: 63/F Location: [facility] Status: Signed Intake Vital Signs 11/15/23 16:01 Height 5 ft 8 in Weight: 234 lb 14.4 oz BMI 35.7 BP 146/80 H Respiration 18 Pulse 92 Temp 97 F L Temp Source Temporal Pulse Oximetry (%) 96 Intake Visit Reasons: Back pain Chief Complaint: low back and neck pain Is patient in pain?: Yes (right low back, neck ) Pain scale (1-10): 2 Allergies morphine Allergy (Verified 10/03/24 10:08) Chest tightness Tetanus Vaccines and Toxoid Adverse Reaction (Intermediate, Verified 10/03/24 10:08) Swelling codeine Adverse Reaction (Verified 10/03/24 10:08) Vomiting Medications ???Medication ???Instructions ???Recorded ???Confirmed ???Type ergocalciferol (vitamin D2) 1,250 5,000 unit PO DAILY 08/19/1306/24 History mcg (50,000 unit) capsule (Vitamin D2) calcium carbonate (Calcium 500) 500 mg PO DAILY 08/27/20 10/03/24 History cranberry fruit 400 mg capsule 400 mg PO DAILY 08/27/20 10/03/24 History metformin 500 mg tablet,extended 500 mg PO 4X/DAY 08/27/20 10/03/24 History release 24 hr psyllium husk 0.4 gram capsule 0.4 g PO DAILY 08/27/20 10/03/24 H istory (Fiber (psyllium husk)) pravastatin 20 mg tablet 40 mg PO QHS 10/22/20 10/03/24 His tory amlodipine 5 mg tablet 5 mg PO BID 11/14/23 10/03/24 Hist ory aspirin 81 mg tablet,delayed 81 mg PO DAILY 11/14/23 10/03/24 H istory release esomeprazole magnesium 40 mg 40 mg PO DAILY 11/14/23 10/03/24 H istory capsule,delayed release glipizide 10 mg tablet, extended 10 mg PO BID 11/14/23 10/03/24 His tory release 24 hr losartan 100 mg tablet 100 mg PO DAILY 11/14/23 10/03/24 History magnesium 200 mg tablet 400 mg PO DAILY 11/14/23 10/03/24 History tirzepatide 7.5 mg/0.5 mL 7.5 mg subcut QWEEK 11/14/2310/03 History subcutaneous pen injector (Satya) hydrocodone-acetaminophen 5-325mg 1 tab PO Q6H PRN PRN Pain 3 days 11/15/23 10/03/24 Rx 5mg-325mg #10 TABLETS ondansetron 4 mg disintegrating 4 mg PO Q8H PRN PRN Nausea #10 tab s 11/15/23 10/03/24 Rx tablet Have you fallen in the past year?: No PFSH Medical History Contusion of left hand Contusion of right hand Contusion of right knee Cellulitis of right knee Cellulitis of fourth toe, left High triglycerides Glucosuria Urinary tract infection with hematuria Urinary urgency Knee pain Diabetes HTN (hypertension) Surgical History History of knee surgery Hx of cholecystectomy History of hernia repair History of tonsillectomy Hx of section Family History Mother Diabetes Hypercholesterolemia Hypertension Arthritis Father Diabetes Hypercholesterolemia Hypertension Arthritis Social History Smoking Status: Never smoker alcohol intake: never substance use type: does not use what type of physical activity do you participate in: none HPI Back pain Chief Complaint: neck and low back pain Visit Number: 9 Details: ALINA PATEL is a 63 year old F here today to f/u with chronic neck and low/mid back pain. She reports she was sore for about a week after her last adjustment. Today she c/o mild right sided low back pain. She rates her pain 2/10. She treats pain at home with ice and Motrin as needed. She continues to experience neck stiffness and c/o occasional bilateral hand numbness and tingling especially when she lays down to sleep and if she is on her phone. She denies new injury, or radiculopathy. Alina reports chiropractic adjustments are helpful in relieving her pain and discomfort but it gradually returns. Location: neck, low back Duration: intermittent Aggravating or associated factors: bending, sitting, posture Relieving factors: chiro Pain Quality: aching and dull Exam Musc General: Yes normal posture, normal gait, joint tenderness and decreased range of motion Cervical Spine: Yes loss of normal cervical lordosis, Yes cervical muscular tenderness bilateral lower , Yes cervical spasm right greater than left lower trapezius and paracervical muscles and Yes misalignment misalignment: C5, C6 and C7 Thoracic/Lumber: Yes thoracic and lumbar spine normal to inspection, Yes paraspinal tenderness on the right greater than left (thoracic, lumbopelvic), Yes thoraco-lumbar spasm bilaterally (traps) in the upper thoracic and in the mid thoracic and on the right (more content not included)... Normal [facility] BASIC METABOLIC PANEL WITH A NION GAPon 09-17-2024 BUN/CREATININE RATIO SEE NOTE: Normal -22 [facility] Comment on above: Result Comment: Not Reported: BUN and Creatinine are within reference range. Performed By: #### 9 7768, 98565 #### [facility] [address], [address] [place] [phone] Oss Architect: Khris Birch MD Calcium [Mass/Vol] 9.7 mg/dL Normal 8.6-10.4 [facility] Comment on above: Performed By: #### 9 1778, 79092 #### [facility] [address], [address] [place] [phone] Oss Architect: Khris Birch MD Chloride [Moles/Vol] 103 mmol/L Normal 98-110 [facility] Comment on above: Performed By: #### 9 2498, 32730 #### [facility] [address], [address] [place] [address] Oss Architect: Khris Birch MD CO2 [Moles/Vol] 25 mmol/L Normal 20-32 [facility] Comment on above: Performed By: #### 9 2498, 02163 #### [facility] [address], [address] [place] [address] Oss Architect: Khris Birch MD Creatinine [Mass/Vol] 0.57 mg/dL Normal 0.50-1.05 [facility] Comment on above: Performed By: #### 9 2498, 71270 #### [facility] of [address], [address] [place] [address] Oss Architect: Khris Birch MD ELECTROLYTE BALANCE 11 mmol/L (calc) Normal 7-17 [facility] Comment on above: Performed By: #### 9 2498, 52507 #### [facility] [address], [address] [place] [address] Oss Architect: Khris Birch MD GFR/1.73 sq M.predicted among non-blacks MDRD (S/P/Bld) [Vol rate/Area] 101 mL/min/{1.73_m2} Normal > OR = 60 [facility] Comment on above: Performed By: #### 9 2498, 78406 #### [facility] [place] [address] Oss Architect: Khris Birch MD Glucose [Mass/Vol] 157 mg/dL High 65-99 [facility] Comment on above: Result Comment: Fasting reference interval For someone without known diabetes, a glucose value >125 mg/dL indicates that they may have diabetes and this should be confirmed with a follow-up test. Performed By: #### 9 2498, 43449 #### [facility] [address], [address] [place] [address] Oss Architect: Khris Birch MD Potassium [Moles/Vol] 4.3 mmol/L Normal 3.5-5.3 [facility] Comment on above: Performed By: #### 9 2498, 30687 #### [facility] [address], [address] [place] [address] Oss Architect: Khris Birch MD Sodium [Moles/Vol] 139 mmol/L Normal 135-146 [facility] Comment on above: Performed By: #### 9 2498, 38164 #### [facility] [address], [address] [place] [address] Oss Architect: Khris Birch MD Urea nitrogen [Mass/Vol] 19 mg/dL Normal 7-25 [facility] Comment on above: Performed By: #### 9 2498, 09563 #### [facility] [place] [address] Oss Architect: Khris Birch MD HEMOGLOBIN A1c WITH eAGon eAG (mmol/L) 8.2 mmol/L Normal [facility] Comment on above: Performed By: #### 9 2498, 93823 #### [facility] [place] [address] Oss Architect: Khris Birch MD HbA1c (Bld) [Mass fraction] 6.8 % High <5.7 [facility] Comment on above: Result Comment: For someone without known diabetes, a hemoglobin A1c value of 6.5% or greater indicates that they may have diabetes and this should be confirmed with a follow-up test. For someone with known diabetes, a value <7% indicates that their diabetes is well controlled and a value greater than or equal to 7% indicates suboptimal control. A1c targets should be individualized based on duration of diabetes, age, comorbid conditions, and other considerations. Currently, no consensus exists regarding use of hemoglobin A1c for diagnosis of diabetes for children. Performed By: #### 9 2498, 54621 #### [facility] [place] [address] Oss Architect: Khris Birch MD Magnesium [Mass/Vol] 148 mg/dL Normal [facility] Comment on above: Performed By: #### 9 2498, 72047 #### [facility] [place] [address], [address] [place] [address] Oss Architect: Khris Birch MD Chiropractic Reporton 2024 Chiropractic Report [facility] [address] [id number] OFFICE VISIT Date of Service: 09/05/24 MR#: [id number] Acct: [id number] Name: ALINA PATEL Rep #: [id number] : 1960 Provider: RAYMOND Mccallum Do ssi Age/Sex: 63/F Location: [facility] Status: Signed Intake Vital Signs 11/15/23 16:01 Height 5 ft 8 in Weight: 234 lb 14.4 oz BMI 35.7 BP 146/80 H Respiration 18 Pulse 92 Temp 97 F L Temp Source Temporal Pulse Oximetry (%) 96 Intake Visit Reasons: Back pain Chief Complaint: low back and neck pain Is patient in pain?: Yes (low back ) Pain scale (1-10): 2 Allergies morphine Allergy (Verified 09/05/24 10:03) Chest tightness Tetanus Vaccines and Toxoid Adverse Reaction (Intermediate, Verified 09/05/24 10:03) Swelling codeine Adverse Reaction (Verified 09/05/24 10:03) Vomiting Medications ???Medication ???Instructions ???Recorded ???Confirmed ???Type ergocalciferol (vitamin D2) 1,250 5,000 unit PO DAILY 08/19/1309/23 History mcg (50,000 unit) capsule (Vitamin D2) calcium carbonate (Calcium 500) 500 mg PO DAILY 08/27/20 09/05/24 History cranberry fruit 400 mg capsule 400 mg PO DAILY 08/27/20 09/05/24 History metformin 500 mg tablet,extended 500 mg PO 4X/DAY 08/27/20 09/05/24 History release 24 hr psyllium husk 0.4 gram capsule 0.4 g PO DAILY 08/27/20 09/05/24 H istory (Fiber (psyllium husk)) pravastatin 20 mg tablet 40 mg PO QHS 10/22/20 09/05/24 His tory amlodipine 5 mg tablet 5 mg PO BID 11/14/23 09/05/24 Hist ory aspirin 81 mg tablet,delayed 81 mg PO DAILY 11/14/23 09/05/24 H istory release esomeprazole magnesium 40 mg 40 mg PO DAILY 11/14/23 09/05/24 H istory capsule,delayed release glipizide 10 mg tablet, extended 10 mg PO BID 11/14/23 09/05/24 His tory release 24 hr losartan 100 mg tablet 100 mg PO DAILY 11/14/23 09/05/24 History magnesium 200 mg tablet 400 mg PO DAILY 11/14/23 09/05/24 History tirzepatide 7.5 mg/0.5 mL 7.5 mg subcut QWEEK 11/14/2309/05 History subcutaneous pen injector (Satya) hydrocodone-acetaminophen 5-325mg 1 tab PO Q6H PRN PRN Pain 3 days 11/15/23 09/05/24 Rx 5mg-325mg #10 TABLETS ondansetron 4 mg disintegrating 4 mg PO Q8H PRN PRN Nausea #10 tab s 11/15/23 09/05/24 Rx tablet Have you fallen in the past year?: No PFSH Medical History Contusion of left hand Contusion of right hand Contusion of right knee Cellulitis of right knee Cellulitis of fourth toe, left High triglycerides Glucosuria Urinary tract infection with hematuria Urinary urgency Knee pain Diabetes HTN (hypertension) Surgical History History of knee surgery Hx of cholecystectomy History of hernia repair History of tonsillectomy Hx of section Family History Mother Diabetes Hypercholesterolemia Hypertension Arthritis Father Diabetes Hypercholesterolemia Hypertension Arthritis Social History Smoking Status: Never smoker alcohol intake: never substance use type: does not use what type of physical activity do you participate in: none HPI Back pain Chief Complaint: neck and low back pain Visit Number: 8 Details: ALINA PATEL is a 63 year old F here today to f/u with chronic neck and low/mid back pain. She reports she has been doing pretty good and c/o mild low back pain equal across today. She rates her pain 2/10 and states it is usually a little worse on the right side. She treats pain at home with ice and Motrin as needed. She continues to experience neck stiffness and c/o right hand numbness and tingling especially when she lays down to sleep and if she is on her phone. She denies new injury. Alina reports chiropractic adjustments are helpful in relieving her pain and discomfort but it gradually returns. Location: neck, low back Duration: intermittent Aggravating or associated factors: bending, sitting, car rides Relieving factors: chiro Pain Quality: aching and dull Exam Musc General: Yes normal posture, normal gait, joint tenderness and decreased range of motion Cervical Spine: Yes loss of normal cervical lordosis, Yes cervical muscular tenderness bilateral diffuse , Yes cervical spasm right greater than left lower trapezius and paracervical muscles and Yes misalignment misalignment: C5, C6 and C7 Thoracic/Lumber: Yes thoracic and lumbar spine normal to inspection, Yes paraspinal tenderness on the right greater than left (thoracic) and on the left greater than right (lumbopelvic), Yes thoraco-lumbar spasm bilaterally (traps) in the upper thoracic and in the mi (more content not included)... Normal [facility]ropractic Reporton [address] [facility] [place] [address] OFFICE VISIT Date of Service: 08/08/24 MR#: [id number] Acct: [id number] Name: ALINA PATEL Rep #: [id number] : 1960 Provider: RAYMOND Covington Age/Sex: 63/F [place] [facility] Status: Signed Intake Vital Signs 11/15/23 16:01 Height 5 ft 8 in Weight: 234 lb 14.4 oz BMI 35.7 BP 146/80 H Respiration 18 Pulse 92 Temp 97 F L Temp Source Temporal Pulse Oximetry (%) 96 Intake Visit Reasons: Back pain Chief Complaint: low back and neck pain Is patient in pain?: Yes (right low back ) Pain scale (1-10): 4 Allergies morphine Allergy (Verified 08/08/24 09:57) Chest tightness Tetanus Vaccines and Toxoid Adverse Reaction (Intermediate, Verified 08/08/24 09:57) Swelling codeine Adverse Reaction (Verified 08/08/24 09:57) Vomiting Medications ???Medication ???Instructions ???Recorded ???Confirmed ???Type ergocalciferol (vitamin D2) 1,250 5,000 unit PO DAILY 08/19/1311/24 History mcg (50,000 unit) capsule (Vitamin D2) calcium carbonate (Calcium 500) 500 mg PO DAILY 08/27/20 08/08/24 History cranberry fruit 400 mg capsule 400 mg PO DAILY 08/27/20 08/08/24 History metformin 500 mg tablet,extended 500 mg PO 4X/DAY 08/27/20 08/08/24 History release 24 hr psyllium husk 0.4 gram capsule 0.4 g PO DAILY 08/27/20 08/08/24 H istory (Fiber (psyllium husk)) pravastatin 20 mg tablet 40 mg PO QHS 10/22/20 08/08/24 His tory amlodipine 5 mg tablet 5 mg PO BID 11/14/23 08/08/24 Hist ory aspirin 81 mg tablet,delayed 81 mg PO DAILY 11/14/23 08/08/24 H istory release esomeprazole magnesium 40 mg 40 mg PO DAILY 11/14/23 08/08/24 H istory capsule,delayed release glipizide 10 mg tablet, extended 10 mg PO BID 11/14/23 08/08/24 His tory release 24 hr losartan 100 mg tablet 100 mg PO DAILY 11/14/23 08/08/24 History magnesium 200 mg tablet 400 mg PO DAILY 11/14/23 08/08/24 History tirzepatide 7.5 mg/0.5 mL 7.5 mg subcut QWEEK 11/14/2308/08 History subcutaneous pen injector (Satya) hydrocodone-acetaminophen 5-325mg 1 tab PO Q6H PRN PRN Pain 3 days 11/15/23 08/08/24 Rx 5mg-325mg #10 TABLETS ondansetron 4 mg disintegrating 4 mg PO Q8H PRN PRN Nausea #10 tab s 11/15/23 08/08/24 Rx tablet Have you fallen in the past year?: No PFSH Medical History Contusion of left hand Contusion of right hand Contusion of right knee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 coated 81 mg EC tablet Take 81 mg by mouth once daily. - IBUPROFEN 600 MG TAB Take one(1) tablet every six(6) hours as needed for pain. Problem List As Of Date 03/25/2023 Noted Resolved Routine Gynecological Examination [Z01.419] 09/11/2009 Class: Chronic DM w/o Complication Type II, Uncontrolled [IMO0*09/11/2009 Essential Hypertension, Benign [I10] 09/11/2009 Obesity [E66.9] 09/11/2009 Hyperlipidemia [E78.5] 10/01/2009 Special Screening for Malignant Neoplasms, [place]*10/24/2009 Benign neoplasm of colon [D12.6] 10/24/2009 Dermatophytosis of foot [B35.3] 01/16/2010 Vitamin D deficiency [E55.9] 03/29/2013 Obesity (BMI 30-39.9) [E66.9] 03/29/2013 Encounter Status:Closed by AIDE GREENBERG on 03/26/23 Normal [facility] BACTERIAL VAGINOSIS NAATon 0 03-24-2023 Lactobacillus crispatus+gasseri +jensenii + Gardnerella vaginalis + Atopobium vaginae rRNA RADHA+probe Ql (Vag fld) Negative Normal Negative for bacterial vaginosis [facility] Comment on above: Order Comment: Speci men Type: SWAB Ordering Facility: [facility] Address: [address] [place] [address] Performed By: #### C VTV, BVAMP #### [facility] CLIA [id number] [address] [place] [address] [place] EMMA/TRICHOMONAS NAATon 0 03-24-2023 C. glabrata RNA RADHA+probe Ql (Vag fld) Negative Normal Negative for Emma glabrata [facility] Comment on above: Order Comment: Speci men Type: SWAB Ordering Facility: [facility] Address: [address] [place] [address] Performed By: #### C VTV, BVAMP #### [facility] CLIA [id number] [address] [place] [address] [place] Emma sp DNA RADHA+probe Ql (Vag fld) Positive Abnormal Negative for Emma species [facility] Comment on above: Order Comment: Speci men Type: SWAB Ordering Facility: [facility] Address: [address] [place] [address] Performed By: #### C VTV, BVAMP #### [facility] CLIA [id number] [address] [place] [address] [place] T. vaginalis DNA RADHA+probe Ql (Unsp spec) Negative Normal Negative for Trichomonas vaginalis by amplification [facility] Comment on above: Order Comment: Speci men Type: SWAB Ordering Facility: [facility] Address: [address] [place] [address] Performed By: #### C VTV, BVAMP #### [facility] CLIA [id number] [address] [place] [address] [place] CNOVon 03-24-2023 CNOV Office Visit (OBGYWM ) ----- AMANDAALINA Meyers ([id number]) 1960 F Date Time Provider Department 03/24/23 3:30 PM XENIA REYNOLDS OBGYWPrecious During your visit today, we recorded the following information about you: Blood pressure Weight Height 130/70 105.1 kg 1.721 m Xenia Reynolds APRN.OPERATING TABLE ASSEMBLER 03/24/2023 3:54 PM Signed Dry Janitor offered: Patient declines. Alina Patel is a 62 year old female who presents for problem visit vulvar irritation. HPI: pt states that she has been having an ongoing issue with vulvar irritation for several months. She has been treated several times with Diflucan for yeast, which will help very short-term and then her symptoms return. She states that they did do a culture at 1 point which showed no yeast. She has also tried [id number] medications for the itching, which gave her very little relief. Patient does have diabetes and states that her blood sugar numbers are not well-controlled at this time. OB History T8 L8 SAB1 IAB0 Ectopic0 Multiple0 Live Births0 Manufacturing Chief Engineer History LMP: Postmenopausal Age at Menarche: Age at First : Age at Menopause: Manufacturing Chief Engineer History Comments: Sexual Activity: Yes; Male; Postmenopausal Contraception: None PAST MEDICAL HISTORY Diagnosis Date Benign neoplasm of colon Diabetes (HCC) Fibroadenoma of breast right removal in 20's Hypertension PAST SURGICAL HISTORY Procedure Laterality Date COLSC FLX W/RMVL OF TUMOR POLYP LESION SNARE TQ 10/24/2009 polyp 20cm LUMPECTOMY/RADIOTHERAPY DIAG MAMM/A10 right fibroadenoma PAST SURGICAL HISTORY OF 8 c-sections; large babies PAST SURGICAL HISTORY OF gallbladder -- classic (open) PAST SURGICAL HISTORY OF hernia repair x 2 -- related, then seroma repair/hernia PAST SURGICAL HISTORY OF tonsillectomy PAST SURGICAL HISTORY OF Left meniscus repair FAMILY HISTORY Problem Relation Age of Onset Diabetes Mother Diabetes Father Coronary Artery Disease Other none Colon Cancer Other none Hypertension Mother Hypertension Father other (Narcolepsy [Other]) Father Arthritis Mother Arthritis Father Cancer Paternal Grandmother Social History Tobacco Use Smoking status: Never Passive exposure: Never Smokeless tobacco: Never Vaping Use Vaping Use: Never used Substance Use Topics Alcohol use: No Drug use: No Current Outpatient Medications Medication Sig liraglutide (VICTOZA) 0.6 mg/ 0.1 ml subcutaneous pen injector INJECT 0.3 ML'S ( 1.8 MG.) SUBCUTANEOUSLY ONCE A DAY. glipiZIDE (GLUCOTROL XL) 10mg 24 hr tablet Take 10 mg by mouth. losartan (COZAAR) 100 mg tablet Take 100 mg by mouth. metFORMIN ER (GLUCOPHAGE XR) 500 mg 24 hr tablet Take 1,000 mg by mouth. amLODIPine (NORVASC) 10 mg tablet Take 10 mg by mouth once daily. pravastatin 40 mg tablet Take 40 mg by mouth once daily. aspirin, enteric coated 81 mg EC tablet Take 81 mg by mouth once daily. IBUPROFEN 600 MG TAB Take one(1) tablet every six(6) hours as needed for pain. insulin glargine (LANTUS SOLOSTAR) 100 unit/mL (3 mL) inpn Inject 35 Units subcutaneously daily at bedtime. (Patient not taking: Reported on 03/24/2023) insulin aspart (NOVOLOG FLEXPEN) 100 unit/mL inpn inject 12 units with breakfast and noon meals, 16 with dinner + SSI 4 u per 50 > 150 (Patient not taking: Reported on 03/24/2023) metoprolol tartrate, short acting, 100 mg tablet Take 100 mg by mouth twice daily. (Patient not taking: Reported on 03/24/2023) No current facility-administered medications for this visit. Allergies As of Date: 03/24/2023 Allergen Noted Reaction CODEINE 09/11/2009 Vomiting GLUCOPHAGE [METFORMIN HCL] 10/25/2009 Diarrhea LISINOPRIL 10/25/2009 Cough Fully Assessed 03/24/2023 REVIEW OF SYSTEMS Bladder: No dysuria, gross hematuria, urinary frequency, urinary urgency, or incontinence. Expanded ROS: N/A Allergies and current medication updated:Yes EXAM: Ht 5' 7.75 (1.72m) Wt 231 lb 9.6 oz (105.1kg) BMI 35.47 kg/(m2). GENERAL: pleasant, female in no apparent distress HEENT: Normocephalic, atraumatic, mucus membranes moist, and no lesions CHEST: Normal inspiratory effort Physical Exam Genitourinary: Genitourinary Comments: Red rash/irritation NEURO: alert and oriented x3,exam grossly non-focal EXTREMITIES: normal ASSESSMENT/PLAN: 1. Vulvar irritation - ICD9: 624.8, ICD10: N90.89 Will notify patient of test results. - EMMA/TRICHOMONAS NAAT - BACTERIAL VAGINOSIS NAAT - CLOTRIMAZOLE-BETAMETHASON E 1 %-0.05 % TOPICAL CREAM Xenia Reynolds APRN.OPERATING TABLE ASSEMBLER Medical Decision Making: Problems: Moderate: New problem with uncertain prognosis Data: Unique test(s) ordered: 2 Risk: Moderate: Drug management Medical Decision Making Level: 4 - Moderate Allergies As of Date: 03/24/2023 Noted Allergy Reaction CODEINE 09/11/2009 11 - Vomiting GLUCOPHAGE (METFORMIN HCL (more content not included)... Normal [facility] Liver limitedon 3 Status post cholecystectomy. Hepatomegaly, with increased echogenicity consistent with hepatic steatosis. Please see CT report of 07/01/2022. No focal mass lesion. Pancreas not visualized. MACRO: None Signed by: Devon Spears 01/15/2023 11:47 AM Dictation workstation: [id number] [facility] MMODAL Interpreted By: Devon Burnette, STUDY: US ABDOMEN LIMITED LIVER; 01/15/2023 8:12 am INDICATION: Signs/Symptoms:Abdominal bloating with abdominal pain. COMPARISON: CT abdomen 07/01/2022. ACCESSION NUMBER(S): [id number] ORDERING CLINICIAN: KRISTEN CABALLERO TECHNIQUE: Multiple images of the right upper quadrant were obtained. FINDINGS: LIVER: The liver is diffusely echogenic in appearance, consistent with diffuse fatty infiltration. No focal mass lesion. The length of the right lobe is 21 cm. Normal color flow and Doppler signal in the portal vein. GALLBLADDER: Status post cholecystectomy. BILIARY TREE: No intra or extrahepatic biliary dilatation is identified. The common bile duct measures 6 mm. PANCREAS: The pancreas is poorly visualized due to overlying bowel gas. Cystic lesion in the uncinate process of the pancreas seen on CT scan of 07/01/2022 could not be visualized on this study. RIGHT KIDNEY: The right kidney is normal in size, measuring 12.4 cm in craniocaudal dimension. The renal cortical echogenicity and thickness are within normal limits. No hydronephrosis or renal calculi are seen. [facility] MMODAL Devon Spears MD - 01/15/2023 Interpreted By: Devon Spears, STUDY: US ABDOMEN LIMITED LIVER; 01/15/2023 8:12 am INDICATION: Signs/Symptoms:Abdominal bloating with abdominal pain. COMPARISON: CT abdomen 07/01/2022. ACCESSION NUMBER(S): [id number] ORDERING CLINICIAN: KRISTEN CABALLERO TECHNIQUE: Multiple images of the right upper quadrant were obtained. FINDINGS: LIVER: The liver is diffusely echogenic in appearance, consistent with diffuse fatty infiltration. No focal mass lesion. The length of the right lobe is 21 cm. Normal color flow and Doppler signal in the portal vein. GALLBLADDER: Status post cholecystectomy. BILIARY TREE: No intra or extrahepatic biliary dilatation is identified. The common bile duct measures 6 mm. PANCREAS: The pancreas is poorly visualized due to overlying bowel gas. Cystic lesion in the uncinate process of the pancreas seen on CT scan of 07/01/2022 could not be visualized on this study. RIGHT KIDNEY: The right kidney is normal in size, measuring 12.4 cm in craniocaudal dimension. The renal cortical echogenicity and thickness are within normal limits. No hydronephrosis or renal calculi are seen. IMPRESSION: Status post cholecystectomy. Hepatomegaly, with increased echogenicity consistent with hepatic steatosis. Please see CT report of 07/01/2022. No focal mass lesion. Pancreas not visualized. MACRO: None Signed by: Devon Spears 01/15/2023 11:47 AM Dictation workstation: [id number] [facility] Work Phone: Radiology Study observation (narrative) [facility] Work Phone: US Liver limitedOrdered By: Devon Spears on 01-15-2023 [facility] Work Phone: XR Chest 2 Viewson 3 1. No evidence of ac [place] sal[place] cardiopulmonary process. MACRO: None Signed by: Francisco Javier Rajan 01/14/2023 6:59 PM Dictation workstation: [id number] MMODAL Interpreted By: Francisco Javier Anand, STUDY: XR CHEST 2 VIEWS; 01/13/2023 9:13 am INDICATION: Signs/Symptoms:Had Heimlich maneuver back in late November and had x-ray done at [facility] a week ago Thursday and she was called and told that she had bilateral pneumothorax. Also soreness at the xiphoid process. COMPARISON: 06/16/2022 ACCESSION NUMBER(S): [id number] ORDERING CLINICIAN: KRISTEN CABALLERO FINDINGS: CARDIOMEDIASTINAL SILHOUETTE: Cardiomediastinal silhouette is normal in size and configuration. LUNGS: Lungs are clear. ABDOMEN: No remarkable upper abdominal findings. BONES: No acute osseous changes. MMODAL Francisco Javier Rajan MD - 01/14/2023 Interpreted By: Francisco Javier Rajan, STUDY: XR CHEST 2 VIEWS; 01/13/2023 9:13 am INDICATION: Signs/Symptoms:Had Heimlich maneuver back in late November and had x-ray done at [facility] a week ago Thursday and she was called and told that she had bilateral pneumothorax. Also soreness at the xiphoid process. COMPARISON: 06/16/2022 ACCESSION NUMBER(S): [id number] ORDERING CLINICIAN: KRISTEN CABALLERO FINDINGS: CARDIOMEDIASTINAL SILHOUETTE: Cardiomediastinal silhouette is normal in size and configuration. LUNGS: Lungs are clear. ABDOMEN: No remarkable upper abdominal findings. BONES: No acute osseous changes. IMPRESSION: 1. No evidence of acute cardiopulmonary process. MACRO: None Signed by: Francisco Javier Rajan 01/14/2023 6:59 PM Dictation workstation: [id number] [facility] Work Phone: XR Chest 2 ViewsOrdered By: Francisco Javier Rajan on 01-14-2023 [facility] Work Phone: XR Chest 2 Viewson Radiology Study observation (narrative) [facility] Work Phone: HEMOGLOBIN A1Con 09-22-2022 Glucose [Mass/Vol] 180 mg/dL Normal [facility] Comment on above: Performed By: #### H BA1E #### [place] [address] HbA1c (Bld) [Mass fraction] 7.9 % Abnormal [facility] Comment on above: Result Comment: Diag nosis of Diabetes-Adults Non-Diabetic: < or = 5.6% Increased risk for developing diabetes: 5.7-6.4% Diagnostic of diabetes: > or = 6.5% . Monitoring of Diabetes Age (y) Therapeutic Goal (%) Adults: >18 <7.0 Pediatrics: 13-18 <7.5 7-12 <8.0 0- 6 7.5-8.5 [employer]. Diabetes Care 33(S1), Mar 2009. Performed By: #### H BA1E #### [place] [address] Lab Specimen Source Normal [facility] Comment on above: Performed By: #### H BA1E #### [place] [id number] Office Visit (Cardiology)on 08-04-2022 Follow-up visit Chief Complaint ALINA PATEL is being seen for a cardiovascular evaluation . follow up after tests. History of Present Illness Patient 61-year-old non-smoker diabetic female with extensive prior medical history significant for hypertension, diabetes, hyperlipidemia, morbid obesity, GERD, TIA, atherosclerotic plaques on carotid arteries coming today for cardiovascular assessment. Patient endorses chest pain for many years. She describes this pain as a sharp pain, starting on the left side of her chest, radiating to her left arm and is self-limited. This pain is not related to exercise or extenuation activities. However, it is associated with shortness of breath. Patient denies palpitations, lightheadedness, headaches, fever, chills, orthopnea, paroxysmal nocturnal dyspnea or syncope. Of note, the patient was sent from Dr. Caballero's office to the ED are recently due to chest pain. This pain was different from the pain that she used to have before, started on the right side of the chest, lasted for around 1 hour and was self-limited. She was worked up in the ED, with no new EKG abnormalities or troponin elevation. She was discharged and oriented to search for cardiovascular assessment. Of note, the patient states that she was on Lipitor but she was feeling cough. After switching for pravastatin, the patient feels much better and is tolerating well the medication. Her EKG showing normal sinus rhythm with Q waves in V1 to V3. Her prior echo shows normal left ventricular ejection fraction of 60% and impaired relaxation of LV diastolic filling. Her carotid artery duplex ultrasound shows bilateral atherosclerotic plaques with <50% stenosis on both sides. Her monitor showed normal sinus rhythm, from bradycardia just sinus tachycardia. The maximum heart rate was 150 and the minimum was 58 bpm's, the average heart rate was 81 bpm. There were 419 PVCs with a burden of 0.05%. There was 1 occurrence of ventricular tachycardia with the longest episode of 6 beats. There were 230 PSVC's with a burden of 0.03%. There were 6 occurrences of SVT with the longest episode of 8 beats. Patient returns today reporting the same symptoms, that she believes that are more related to indigestion instead of cardiovascular symptoms. Her cardiology check up tests were normal. CT calcium score of 6. Nuclear stress test negative for ischemia. Active Problems Problems Alternating constipation and diarrhea (787.99) (R19.8) Arthritis of knee, left (716.96) (M17.12) Atherosclerosis (440.9) (I70.90) BMI 36.0-36.9,adult (V85.36) (Z68.36) Carotid disease, bilateral (447.9) (I77.9) Chest pain at rest (786.50) (R07.9) Class 2 severe obesity due to excess calories with serious comorbidity and body mass index (BMI) of 36.0 to 36.9 in adult (278.01,V85.36) (E66.01,Z68.36) Class 2 severe obesity with body mass index (BMI) of 35 to 39.9 with serious comorbidity (278.01) (E66.01) Complex tear of medial meniscus of left knee as current injury, subsequent encounter (V58.89) (S83.232D) Diabetes (250.00) (E11.9) Encounter for screening mammogram for breast cancer (V76.12) (Z12.31) Encounter for screening mammogram for malignant neoplasm of breast (V76.12) (Z12.31) MARCH 2019 GERD (gastroesophageal reflux disease) (530.81) (K21.9) Hepatic steatosis (571.8) (K76.0) History of claustrophobia (V11.8) (Z86.59) HTN (hypertension) (401.9) (I10) Hyperlipidemia LDL goal <100 (272.4) (E78.5) Medial epicondylitis of right elbow (726.31) (M77.01) Nocturnal hypoxemia (327.24) (G47.34) Other specified inflammation of vagina and vulva (616.89) (N76.89) Screening for colon cancer (V76.51) (Z12.11) Screening for heart disease (V81.2) (Z13.6) Taking medication for chronic disease (799.9) (R69) TIA (transient ischemic attack) (435.9) (G45.9) Vitamin D deficiency (268.9) (E55.9) Surgical History Problems History of section 8 c-sections History of Cholecystectomy History of Complete colonoscopy History of Knee arthroscopy Left Past Medical History Problems History of diabetes mellitus (V12.29) (Z86.39) History of hyperlipidemia (V12.29) (Z86.39) History of hypertension (V12.59) (Z86.79) Current Meds Medication NameInstruction amLODIPine Besylate 10 MG Oral TabletTAKE 1 TABLET DAILY. Aspirin Low Dose 81 MG Oral Tablet Delayed ReleaseTAKE 1 TABLET BY MOUTH EVERY DAY BD Pen Needle Short U/F 31G X 8 MMUSE DIRECTED ONCE DAILY WITH VICTOZA INJECTION Blood Glucose Monitor System w/Device KitUSE DIRECTED. Blood Glucose Test In Vitro StripTEST 2 TIMES DAILY Calcium Citrate + D3 200-250 MG-UNIT TABSTake 1 tablet daily Cranberry CAPSTake 1 capsule twice daily Esomeprazole Magnesium 20 MG Oral Capsule Delayed ReleaseTAKE 1 CAPSULE Daily Fiber CAPSTAKE 2 CAPSULE Twice daily glipiZIDE XL 10 MG Oral Tablet Extended Release 24 HourTake 1 tablet twice a day Ibuprofen TABSTAKE 2 TABLET Every 6 hours PRN LancetsUSE TO TEST BLOOD SUGAR 2 TIME (more content not included)... Normal Fashion To Figure Tobacco Screening.on 023 Fall risk assessment a) No falls within the last year [facility] [employer] Work Phone: Tobacco use status CP b) No [facility] [employer] Work Phone: CARDIAC STRESS/REST INJECTIO Non 07-09-2022 CARDIAC STRESS/REST INJECTION Patient Name: ALINA PATEL STUDY: CARDIAC STRESS/REST INJECTION; CARDIAC STRESS/REST (MYOCARDIAL PERFUSION/MIBI); PART 2 STRESS OR REST (NO CHARGE); 07/09/2022 9:31 am; 07/09/2022 9:34 am INDICATION: chest pain I70.90: Atherosclerosis. COMPARISON: None. ACCESSION NUMBER(S): [id number]; [id number]; [id number] ORDERING CLINICIAN: TYLER BAEZ TECHNIQUE: DIVISION OF NUCLEAR MEDICINE STRESS MYOCARDIAL PERFUSION SCAN, ONE DAY PROTOCOL The patient received an intravenous injection of 11.8 mCi of Tc-99m Myoview and resting emission tomographic (SPECT) images of the myocardium were acquired. The patient then underwent treadmill stress exercising to 99.4 % of MPHR and achieving 6.4 METS. At peak stress an additional injection of 36 mCi of Tc-99m Myoview was administered and stress phase SPECT images of the myocardium were then acquired. This acquisition included ECG-gated images to assess and quantify ventricular function. Low dose CT was acquired for attenuation correction. FINDINGS: Both stress and rest studies demonstrate grossly normal perfusion throughout the left ventricle. The left ventricle is normal in size, with an end-diastolic volume of about 56 mL. Gated images demonstrate normal LV wall motion with post-stress LV EF estimated at >65%. The ascending thoracic aorta is ectatic at 4.1 cm (series 1, image 9) with. Attenuation correction CT images otherwise demonstrate no gross anatomic abnormalities. IMPRESSION: Normal myocardial perfusion study without evidence of ischemia or prior infarction. The left ventricle is normal in size. Normal LV wall motion with an LV EF estimated at >65%. I personally reviewed the images/study and I agree with the findings as stated. This study was interpreted at [facility], [place], [place]. Electronically signed by: WILDA BRENNER MD [facility] No Panel Informationon 07-09 Normal [facility] [address] [employer] Work Phone: [facility] [address] [employer] Work Phone: [facility] Nuclear Orderon 2022 [place] [id number] [phone], Nuclear Treadmill Stress Test Patient Name: ALINA PATEL Ordering Physician: Study Date: 07/09/2022 Reading Physician: Erik Prabhakar MD MRN/PID: [id number] Supervising Physician: Erik Prabhakar MD Accession/Order#: [id number] Referring Physician: TYLER BENJAMIN Date of : 1960 PCP: Gender: F Fellow: Admit Date: 07/09/2022 Fellow: Admission Status: Outpatient Technical Services Analyst: Height: 172.72 cm Nurse: N/A Weight: 108.41 kg Honing Machine Operator: N/A BSA: 2.20 m2 Technologist: Cari Valdez BMI: 36.34 kg/m2 Additional Staff: Age: 61 years cc report to: Patient Location: [facility] Stress Lab cc report to: Study Type: Nuclear Stress Test-Exercise Treadmill Diagnosis/ICD: R07.9-Chest pain, unspecified Indication: Chest Pain Procedure/CPT: Stress Test Interpretation-08489; Stress Test Supervision-[id number] Falls Risk: Low: Patient has low risk for sustaining a fall; environmental safety interventions in place. Study Details: Correct procedure and correct patient verified verbally and with ID Band checked. Patient History: Chest pain, hypertension, transient ischemic attack and hyperlipidemia. Allergies: CODEINE, LISINOPRIL. Smoker: Never. Diabetes: Yes, managed with Insulin. BMI: Obese >30. Medications: SEE ATTACHED SHEET. The patient took medications as prescribed. Patient Performance: The patient exercised to stage II on a Karson protocol for 5 minutes and 00 seconds, achieving 6.4 METS. Patient received a total of 36 mCi of MIBI at 8:36:27 AM. The patient exercised during infusion. The peak heart rate achieved was 156 bpm, which was 100 % of the age predicted target heart rate of 156 bpm. The resting blood pressure was 152/96 mmHg with a heart rate of 80 bpm. The standing blood pressure was 154/93 mmHg with a heart rate of 84 bpm. The patient developed shortness of breath during the stress exam. The symptoms resolved with rest 2 minutes into recovery. The blood pressure response was hypertensive. The test was terminated due to: MPHR >85%. Stress Stage Data: + +---+-- ----+-------+ HR Sys BP Bullard BP + +---+-- ----+-------+ Baseline Resting 80 152 96 + +---+-- ----+-------+ Baseline Standing 84 154 93 + +---+-- ----+-------+ Stage I 136 184 88 + +---+-- ----+-------+ Stage II 155 204 79 + +---+-- ----+-------+ Recovery ECG: The heart rate recovery was normal. + +---+------+ -------+ HR Sys BP Bullard BP + +---+------+ -------+ Recovery I 142 + +---+------+ -------+ Recovery II 117 198 78 + +---+------+ -------+ Recovery III 101 + +---+------+ -------+ Recovery IV 99 163 77 + +---+------+ -------+ Summary: 1. Baseline EKG shows normal sinus rhythm with no resting ST-T segment changes. 2. Patient exercised for 5 minutes achieving 6.4 METS. 3. Exercise capacity is below average for age. 4. Heart rate response to exercise normal. Blood pressure response to exercise hypertensive blood. 5. With exercise no ST-T segment changes suggestive of ischemia or sustained ventricular arrhythmias are seen. Occasional PVC noted. 6. Exercise stress EKG is negative for ischemia. 7. Curiel treadmill score is 5 (low risk). 8. Nuclear image results are reported separately. [id number] Seb Prabhakar MD Electronically signed on 07/09/2022 at 1:17:34 PM Final Normal [facility] BASIC METABOLIC PANELon 05-0 Anion gap [Moles/Vol] 17 mmol/L Normal 10 - 20 [facility] Comment on above: Performed By: #### H BA1E #### [facility] [address] [place] [address] Calcium [Mass/Vol] 9.1 mg/dL Normal 8.6 - 10.3 [facility] Comment on above: Performed By: #### H GRETCHEN1E #### [address] [address] Chloride [Moles/Vol] 99 mmol/L Normal 98 - 107 [facility] Comment on above: Performed By: #### H GRETCHEN1E #### [address] [address] Creatinine [Mass/Vol] 0.60 mg/dL Normal 0.50 - 1.05 [facility] Comment on above: Performed By: #### H GRETCHEN1E #### [address] [address] eGFR FEMALE >90 Normal >90 [facility] Comment on above: Result Comment: CALC ULATIONS OF ESTIMATED GFR ARE PERFORMED USING THE 2020 CKD-EPI STUDY REFIT EQUATION WITHOUT THE RACE VARIABLE FOR THE IDMS-TRACEABLE CREATININE METHODS. https://jasn.asnjournals.org/content//ASN.3555703812 Performed By: #### H GRETCHEN1E #### [address] [address] Glucose [Mass/Vol] 208 mg/dL High 74 - 99 [facility] Comment on above: Performed By: #### H GRETCHEN1E #### [address] [address] HCO3 (Bld) [Moles/Vol] 24 mmol/L Normal 21 - 32 [facility] Comment on above: Performed By: #### H GRETCHEN1E #### [address] [address] Potassium [Moles/Vol] 4.1 mmol/L Normal 3.5 - 5.3 [facility] Comment on above: Performed By: #### H GRETCHEN #### [address] [address] Sodium [Moles/Vol] 136 mmol/L Normal 136 - 145 [facility] Comment on above: Performed By: #### H GRETCHEN1E #### [address] [address] Urea nitrogen [Mass/Vol] 22 mg/dL Normal 6 - 23 [facility] Comment on above: Performed By: #### H BA1E #### [address] [address] CBC AND DIFFERENTIALon 07-01 % AUTOMATED IMMATURE GRAN 0.6 % Normal 0.0 - 0.9 [facility] Comment on above: Result Comment: Elaine ture Granulocyte Count (IG) includes promyelocytes, myelocytes and metamyelocytes but does not include bands. Percent differential counts (%) should be interpreted in the context of the absolute cell counts (cells/L). Performed By: #### C BCDF #### [address] [address] Basophils (Bld) [#/Vol] 0.07 10*3/uL Normal 0.00 - 0.10 [facility] Comment on above: Performed By: #### C BCDF #### [address] [address] Basophils/100 WBC (Bld) 0.4 % Normal 0.0 - 2.0 [facility] Comment on above: Performed By: #### C BCDF #### [address] [address] Eosinophils (Bld) [#/Vol] 0.13 10*3/uL Normal 0.00 - 0.70 [facility] Comment on above: Performed By: #### C BCDF #### [address] [address] Eosinophils/100 WBC (Bld) 0.7 % Normal 0.0 - 6.0 [facility] Comment on above: Performed By: #### C BCDF #### [address] [address] Erythrocyte distribution width (RBC) [Ratio] 14.1 % Normal 11.5 - 14.5 [facility] Comment on above: Performed By: #### C BCDF #### [address] [address] Hematocrit (Bld) [Volume fraction] 47.2 % High 36.0 - 46.0 [facility] Comment on above: Performed By: #### C BCDF #### [address] [address] Hemoglobin (Bld) [Mass/Vol] 15.5 g/dL Normal 12.0 - 16.0 [facility] Comment on above: Performed By: #### C BCDF #### [address] [address] Lymphocytes (Bld) [#/Vol] 1.95 10*3/uL Normal 1.20 - 4.80 [facility] Comment on above: Performed By: #### C BCDF #### [address] [address] Lymphocytes/100 WBC (Bld) 9.9 % Normal 13.0 - 44.0 [facility] Comment on above: Performed By: #### C BCDF #### [address] [address] MCHC (RBC) [Mass/Vol] 32.8 g/dL Normal 32.0 - 36.0 [facility] Comment on above: Performed By: #### C BCDF #### [address] [address] MCV (RBC) [Entitic vol] 81 fL Normal 80 - 100 [facility] Comment on above: Performed By: #### C BCDF #### [address] [address] Monocytes (Bld) [#/Vol] 1.09 10*3/uL High 0.10 - 1.00 [facility] Comment on above: Performed By: #### C BCDF #### [address] [address] Monocytes/100 WBC (Bld) 5.5 % Normal 2.0 - 10.0 [facility] Comment on above: Performed By: #### C BCDF #### [address] [address] Neutrophils (Bld) [#/Vol] 16.38 10*3/uL High 1.20 - 7.70 [facility] Comment on above: Result Comment: Perc ent differential counts (%) should be interpreted in the context of the absolute cell counts (cells/L). Performed By: #### C BCDF #### [address] [address] Neutrophils/100 WBC (Bld) 82.9 % Normal 40.0 - 80.0 [facility] Comment on above: Performed By: #### C BCDF #### [address] [address] Platelets (Bld) [#/Vol] 286 10*3/uL Normal 150 - 450 [facility] Comment on above: Performed By: #### C BCDF #### [address] [address] RBC 5.85 x10E12/L High 4.00 - 5.20 [facility] Comment on above: Performed By: #### C BCDF #### [address] [address] WBC (Bld) [#/Vol] 19.7 10*3/uL High 4.4 - 11.3 [facility] Comment on above: Performed By: #### C BCDF #### [address] [address] [address] ABDOMEN AND PELVIS W IV [facility] 07-01-2022 CT ABDOMEN AND PELVIS W IV CONTRAST Patient Name: ALINA PATEL STUDY: CT ABDOMEN AND PELVIS W IV CONTRAST; 07/01/2022 1:24 am INDICATION: abd pain . COMPARISON: 10/09/2020 ACCESSION NUMBER(S): [id number] ORDERING CLINICIAN: AYALA GUAJARDO TECHNIQUE: Contiguous axial images of the abdomen and pelvis were obtained after the intravenous administration of 90 mL Omnipaque 350 contrast. Coronal and sagittal reformatted images were reconstructed from the axial data. FINDINGS: LOWER CHEST: No acute abnormality. ABDOMEN/PELVIS: ABDOMINAL WALL: Postsurgical changes of ventral hernia repair are again noted. There is a small fat containing umbilical hernia, unchanged. LIVER: Diffuse hypoattenuation of the liver consistent with steatosis. No lesions. BILE DUCTS: No significant intrahepatic or extrahepatic dilatation. GALLBLADDER: Surgically absent. PANCREAS: There is an unchanged 1.8 cm hypodense lesion in the pancreatic uncinate process that measure simple fluid density. There is an unchanged peripherally calcified structure adjacent to the pancreatic body measuring 1.5 cm likely representing an involuted pseudocyst. No acute abnormality of the pancreas. SPLEEN: The spleen measures 15.6 cm, increased from 14.7 cm. ADRENALS: No significant abnormality. KIDNEYS, URETERS, BLADDER: No significant abnormality. REPRODUCTIVE ORGANS: No significant abnormality. VESSELS: Mild aortic atherosclerosis without AAA. RETROPERITONEUM/LYMPH NODES: No enlarged lymph nodes. BOWEL/MESENTERY/PERITONEU M: No inflammatory bowel wall thickening or dilatation. Normal appendix. No ascites, free air, or fluid collection. MUSCULOSKELETAL: No acute osseous abnormality. IMPRESSION: No acute abnormality within the abdomen or pelvis. Stable 1.8 cm pancreatic cyst in the uncinate process. A 2 year follow-up CT is recommended to ensure continued stability. Sanya AJ, Jennifer ME, Octavio DE, Konstantin IR, Deyvi DV, Coleman E, Shannan WR, Hansel LL, Kari PV. Management of Incidental Pancreatic Cysts: A White Paper of the ACR Incidental Findings Committee. J Am Evelyn Radiol. 2017;14(7):911-923. Slight progression of hepatic steatosis. Slight progression of splenomegaly. Electronically signed by: MARGARITA OLVERA MD [facility] CT Abdomen and Pelvis with I V Contraston 07-01-2022 CT Abdomen and Pelvis W contrast IV Normal [place] [address] [employer] Work Phone: Complete Blood Count + Diffe rentialon 07-01-2022 Basophils/100 WBC (Bld) 0.4 % 0.0 - 2.0 [address] Work Phone: [phone] Erythrocyte distribution width (RBC) [Ratio] 14.1 % See Below [address] Work Phone: Comment on above: Reference Range: 11. 5 - 14.5 Hematocrit (Bld) [Volume fraction] 47.2 % above high threshold See Below [place] [address] [employer] Work Phone: Comment on above: Reference Range: 36. 0 - 46.0 Hemoglobin (Bld) [Mass/Vol] 15.5 g/dL See Below [address] Work Phone: Comment on above: Reference Range: 12. 0 - 16.0 Lymphocytes/100 WBC (Bld) 9.9 % See Below [address] Work Phone: Comment on above: Reference Range: 13. 0 - 44.0 MCHC (RBC) [Mass/Vol] 32.8 g/dL See Below [address] Work Phone: Comment on above: Reference Range: 32. 0 - 36.0 MCV (RBC) [Entitic vol] 81 fL 80 - [address] Work Phone: [phone] Monocytes/100 WBC (Bld) 5.5 % 2.0 - 10.[address] Work Phone: [phone] Neutrophils/100 WBC (Bld) 82.9 % See Below [address] Work Phone: Comment on above: Reference Range: 40. 0 - 80.0 Platelets (Bld) [#/Vol] 286 10*3/uL 150 - [address] Work Phone: [phone] RBC (Bld) [#/Vol] 5.85 {x10E12/L} above high threshold See Below [address] Work Phone: Comment on above: Reference Range: 4.0 0 - 5.20 WBC (Bld) [#/Vol] 19.7 10*3/uL above high threshold 4.4 - 11.3 [address] Work Phone: Complete Blood Count + Differential 0.07 {x10E9/L} See Below [address] Work Phone: Comment on above: Reference Range: 0.0 0 - 0.10 Complete Blood Count + Differential 0.13 {x10E9/L} See Below [address] Work Phone: Comment on above: Reference Range: 0.0 0 - 0.70 Complete Blood Count + Differential 1.09 {x10E9/L} above high threshold See Below [address] Work Phone: [phone] Comment on above: Reference Range: 0.1 0 - 1.00 Complete Blood Count + Differential 1.95 {x10E9/L} See Below [address] Work Phone: [phone] Comment on above: Reference Range: 1.2 0 - 4.80 Complete Blood Count + Differential 16.38 {x10E9/L} above high threshold See Below [address] Work Phone: Comment on above: Reference Range: 1.2 0 - 7.70 Percent differential counts (%) should be interpreted in the context of the absolute cell counts (cells/L). Complete Blood Count + Differential 0.7 % 0.0 - 6.[address] Work Phone: [phone] Complete Blood Count + Differential 0.6 % 0.0 - 0.[address] Work Phone: Comment on above: Immature Granulocyte Count (IG) includes promyelocytes, myelocytes and metamyelocytes but does not include bands. Percent differential counts (%) should be interpreted in the context of the absolute cell counts (cells/L). Cult, Urineon 07-01-2022 Bacteria identified Cx Nom (U) [address] Work Phone: [phone] HEPATIC FUNCTION PANELon Albumin [Mass/Vol] 4.2 g/dL Normal 3.4 - 5.0 [facility] Comment on above: Performed By: #### H EPFP #### [place] [address] ALP [Catalytic activity/Vol] 82 U/L Normal 33 - 136 [facility] Comment on above: Performed By: #### H EPFP #### [address] [address] ALT [Catalytic activity/Vol] 31 U/L Normal 7 - 45 [facility] Comment on above: Result Comment: Alice ents treated with Sulfasalazine may generate falsely decreased results for ALT. Performed By: #### H EPFP #### [address] [address] AST [Catalytic activity/Vol] 25 U/L Normal 9 - 39 [facility] Comment on above: Performed By: #### H EPFP #### [address] [address] Bilirubin [Mass/Vol] 0.7 mg/dL Normal 0.0 - 1.2 [facility] Comment on above: Performed By: #### H EPFP #### [place] [address] Bilirubin.indirec t [Mass/Vol] 0.1 mg/dL Normal 0.0 - 0.3 [facility] Comment on above: Performed By: #### H EPFP #### [address] [address] Protein [Mass/Vol] 7.1 g/dL Normal 6.4 - 8.2 [facility] Comment on above: Performed By: #### H EPFP #### [address] [address] Hepatic Function Panelon Albumin BCP dye [Mass/Vol] 4.2 g/dL 3.4 - 5.0 [facility] [address] Work Phone: [phone] ALP [Catalytic activity/Vol] 82 U/L 33 - 136 [facility] [address] Work Phone: ALT With P-5'-P [Catalytic activity/Vol] 31 U/L 7 - 45 -Cardiolog [facility] [address] Work Phone: Comment on above: Patients treated wit h Sulfasalazine may generate falsely decreased results for ALT. AST With P-5'-P [Catalytic activity/Vol] 25 U/L 9 - [address] Work Phone: [phone] Bilirubin [Mass/Vol] 0.7 mg/dL 0.0 - 1.[address] Work Phone: Bilirubin.direct [Mass/Vol] 0.1 mg/dL 0.0 - 0.[address] Work Phone: [phone] Protein [Mass/Vol] 7.1 g/dL 6.4 - 8.[address] Work Phone: LACTATEon 07-01-2022 Lactate [Moles/Vol] 2.1 mmol/L High 0.4 - 2.0 [facility] Comment on above: Result Comment: Lianne puncture immediately after or during the administration of Metamizole may lead to falsely low results. Testing should be performed immediately prior to Metamizole dosing. Performed By: #### L ACT #### [address] [address] Lactate [Moles/Vol] 3.0 mmol/L High 0.4 - 2.0 [facility] Comment on above: Result Comment: Lianne puncture immediately after or during the administration of Metamizole may lead to falsely low results. Testing should be performed immediately prior to Metamizole dosing. Performed By: #### L ACT #### [address] [address] Lactate [Moles/Vol] 2.4 mmol/L High 0.4 - 2.0 [facility] Comment on above: Result Comment: Lianne puncture immediately after or during the administration of Metamizole may lead to falsely low results. Testing should be performed immediately prior to Metamizole dosing. Performed By: #### L ACT #### [address] [address] Lactate [Moles/Vol] 2.5 mmol/L High 0.4 - 2.0 [facility] Comment on above: Result Comment: Lianne puncture immediately after or during the administration of Metamizole may lead to falsely low results. Testing should be performed immediately prior to Metamizole dosing. Performed By: #### L ACT #### [address] [address] LIPASEon 07-01-2022 Lipase [Catalytic activity/Vol] 35 U/L Normal 9 - 82 [facility] Comment on above: Result Comment: Lianne puncture immediately after or during the administration of Metamizole may lead to falsely low results. Testing should be performed immediately prior to Metamizole dosing. B-jyovkm-u-benzoquinone imine (metabolite of Acetaminophen) will generate erroneously low results in samples for patients that have taken toxic doses of acetaminophen. Performed By: #### L IPAS #### [address] [address] Laboratory - Chemistry and C hemistry - challengeon 07-01-2022 Anion gap [Moles/Vol] 17 mmol/L 10 - [address] Work Phone: Calcium [Mass/Vol] 9.1 mg/dL 8.6 - 10.[address] Work Phone: Chloride [Moles/Vol] 99 mmol/L 98 - [address] Work Phone: CO2 [Moles/Vol] 24 mmol/L 21 - [address] Work Phone: Creatinine [Mass/Vol] 0.60 mg/dL See Below [address] Work Phone: Comment on above: Reference Range: 0.5 0 - 1.05 Glucose [Mass/Vol] 208 mg/dL above high threshold 74 - [address] Work Phone: Potassium [Moles/Vol] 4.1 mmol/L 3.5 - 5.[address] Work Phone: Sodium [Moles/Vol] 136 mmol/L 136 - [address] Work Phone: Urea nitrogen [Mass/Vol] 22 mg/dL 6 - [address] Work Phone: Lactate, Levelon 07-01-2022 Lactate [Moles/Vol] 2.1 mmol/L above high threshold 0.4 - 2.[address] Work Phone: Comment on above: Venipuncture immedia tely after or during the administration of Metamizole may lead to falsely low results. Testing should be performed immediately prior to Metamizole dosing. Lactate [Moles/Vol] 3.0 mmol/L above high threshold 0.4 - 2.[address] Work Phone: Comment on above: Venipuncture immedia tely after or during the administration of Metamizole may lead to falsely low results. Testing should be performed immediately prior to Metamizole dosing. Lactate [Moles/Vol] 2.4 mmol/L above high threshold 0.4 - 2.[address] Work Phone: Comment on above: Venipuncture immedia tely after or during the administration of Metamizole may lead to falsely low results. Testing should be performed immediately prior to Metamizole dosing. Lactate [Moles/Vol] 2.5 mmol/L above high threshold 0.4 - 2.[address] Work Phone: Comment on above: Venipuncture immedia tely after or during the administration of Metamizole may lead to falsely low results. Testing should be performed immediately prior to Metamizole dosing. Lipase, Serumon 07-01-2022 Lipase [Catalytic activity/Vol] 35 U/L 9 - [address] Work Phone: Comment on above: Venipuncture immedia tely after or during the administration of Metamizole may lead to falsely low results. Testing should be performed immediately prior to Metamizole dosing. R-ylwgqb-m-benzoquinone imine (metabolite of Acetaminophen) will generate erroneously low results in samples for patients that have taken toxic doses of acetaminophen. No Panel Informationon 07-01 >90 >90 MP-Cardiolog y-[address] Work Phone: Comment on above: CALCULATIONS OF PENELOPE MATED GFR ARE PERFORMED USING THE 2020 CKD-EPI STUDY REFIT EQUATION WITHOUT THE RACE VARIABLE FOR THE IDMS-TRACEABLE CREATININE METHODS.https://jasn.asnjournals.org/content/early//ASN.20 19800450 Provider Note - ED v3on 05 Provider Note - ED v3 Provider Note: Chart Review: ED NOTES ED NOTES: HPI: Patient is a 61-year-old female who for the past 2 and half hours has a chief complaint vomiting. States it has slowed slightly. The last several episodes have been dry heaves. States she has fairly abrupt onset of abdominal pain and then vomiting and then her abdominal pain improves. Had a salad from [employer] for dinner. Reports normal bowel movements and had a normal bowel movement this morning. No fevers or chills. No chest pain. ROS: All systems are negative other than as noted in HPI. Physical Exam Constitutional: Well developed, No acute distress EYES: Sclera non-icteric. Conjunctiva not injected. No discharge. HENT: Moist mucous membranes. Posterior oropharynx non-erythematous, no tonsillar exudates. TMs clear bilaterally, canals normal. No cervical LAD. Neck supple without meningismus. CV: Regular rate and rhythm, Resp: No respiratory distress. Lungs clear bilaterally. GI: Normoactive bowel sounds. Soft, non tender, no masses or organomegaly appreciated. :. MSK: No gross deformities appreciated. Moves all extremities Neuro: Alert, age appropriate. Normal muscle tone. Moving all extremities. Skin: No rashes. HISTORY OF PRESENTING ILLNESS ALINA is a 61 year old Female and was seen by me at 30-Jun-2022 23:25 for a chief complaint of vomiting . Triage Information: Most recent Vital Sign Value Date Temp (F): 97.9 06-30-2022 23:26 Temp (C): 36.6 06-30-2022 23:26 Heart Rate (beats/min): 102 06-30-2022 23:26 Respirations (breaths/min): 20 06-30-2022 23:26 SpO2 (%): 95 06-30-2022 23:26 BP Systolic (mm Hg): 159 06-30-2022 23:26 BP Diastolic (mm Hg): 79 06-30-2022 23:26 PAST MEDICAL HISTORY ALLERGIES/INTOLERANCES: Allergy Allergen: morphine Type: Drug Reaction: Facial Swelling Intolerance Allergen: codeine Type: Drug Reaction: Nausea/Vomiting HEALTH HISTORY: Medical History Name:Diabetes mellitus Code:E11.9 Name:Hypertension Code:I10 Name:Hypercholesterolemia Code:E78.00 Name:GERD (gastroesophageal reflux disease) Code:K21.9 OUTPATIENT MEDICATIONS: Home Medications Review Status for Reconciliation: Complete Med Status: Patient Currently Takes Medications Drug Name: Victoza 18 mg/3 mL subcutaneous solution Instructions: subcutaneous once a day Drug Name: NexIUM 20 mg oral delayed release capsule Instructions: 1 cap(s) orally once a day Drug Name: Cranberry oral capsule Instructions: 1 cap(s) orally once a day Drug Name: Fiber Choice 1.5 g oral tablet, chewable Instructions: 1 tab(s) orally once a day Drug Name: Calcium 600+D 600 mg-200 intl units (5 mcg) oral tablet Instructions: 1 tab(s) orally once a day Drug Name: pravastatin 20 mg oral tablet Instructions: 1 tab(s) orally once a day Drug Name: aspirin 81 mg oral tablet, disintegrating Instructions: 1 tab(s) orally once a day Drug Name: magnesium gluconate 500 mg oral tablet Instructions: 1 tab(s) orally 3 times a day Drug Name: losartan 100 mg oral tablet Instructions: 1 tab(s) orally once a day Drug Name: metFORMIN 500 mg oral tablet, extended release Instructions: 2 tab(s) orally 2 times a day Drug Name: Vitamin D3 125 mcg (5000 intl units) oral tablet Instructions: 1 tab(s) orally once a day Drug Name: amLODIPine 10 mg oral tablet Instructions: 1 tab(s) orally once a day Drug Name: GlipiZIDE XL 10 mg oral tablet, extended release Instructions: 1 tab(s) orally once a day Drug Name: docusate sodium 100 mg oral capsule Instructions: 1 cap(s) orally once a day SIGNIFICANT EVENTS: Clinical Events Description:Surgical Procedure Additional Notes:1. SCOPE L KNEE W/PARTIAL MENISCECTOMY and chondroplasty; Past Medical History Description:Diabetes Description:Hypertension (HTN) Description:Hyperlipidemi a CRITICAL CARE RESULTS: Recent Lab Results: I have reviewed these laboratory results: Lactate, Level Trending View [id number] 05:25:00 01-Jul-2022 03:36:00 01-Jul-2022 01:37:00 01-Jul-2022 00:16:00 Lactate, Level2.1 H 3.0 H 2.4 H 2.5 H Hepatic Function Panel 01-Jul-2022 00:16:00 ResultValue Aspartate Transaminase, Serum 25 ALB 4.2 T Bili 0.7 Bilirubin, Serum Direct - Conjugated 0.1 ALKP 82 Alanine Aminotransferase, Serum 31 T Pro 7.1 Complete Blood Count + Differential 01-Jul-2022 00:16:00 ResultValue White Blood Cell Count 19.7 H Red Blood Cell Count 5.85 H HGB 15.5 HCT 47.2 H MCV 81 MCHC 32.8 PLT 286 RDW-CV 14.1 Neutrophil % 82.9 Immature Granulocytes % 0.6 Lymphocyte % 9.9 Monocyte % 5.5 Eosinophil % 0.7 Basophil % 0.4 Neutrophil Count 16.38 H Lymphocyte Count 1.95 Monocyte Count 1.09 H Eosinophil Count 0.13 Basophil Count 0.07 Basic Metabolic Panel 01-Jul-2022 00:16:00 ResultValue Glucose, Serum 208 H NA 136 K 4.1 CL 99 Bicarbon (more content not included)... Normal [facility] Risk Screen - Adult Emergenc yon 07-01-2022 Risk Screen - Adult Emergency Preferred Language: Preferred Language: Preferred Language for Discussing Health Care (patient/designee)Lithuanian Patient Preferred Pharmacy: Patient Preferred Pharmacy Statement: I have reviewed and updated the patient's preferred pharmacy selection for today's visit. Advanced Directives: Advance Directive/DNRno Advance Directive Information Givenpatient/family declined Family Violence Adult: Abuse Screen: Are you or have you been threatened or abused physically, emotionally, or sexually by anyoneno Learning Assessment (Patient): Learning Assessment (Patient): Patient is Able to be Assessed for Learningyes Factors Influencing Readiness to Learninterest in learning Factors that Impact Ability to Learnnone Devices/Methods Used to Communicatenone Learning Preferencesaudio Cultural Considerationsnone Developmental Considerationsnone Synagogue Considerationsnone Learning Assessment (Other Learner): Learning Assessment (Other Learner): Other learner availableno Pressure Injury/TB/Substance: Pressure Injury: Pressure Injury Present on Admissionno Do you have a coughno Smoking Statusnever smoker Alcohol Usedenies Drug Usedenies Admission Risk Screen: Significant IndicatorsComplete CAGE: CAGE: [place] this an [place] a [place] Center [place] [place]/[place]/[employer]/ [place] no Electronic Signatures: Noris Pittman (RN) (Signed 30-Jun-2022 23:34) Authored: Preferred Language, Patient Preferred Pharmacy, Advanced Directives, Family Violence Adult, Learning Assessment (Patient), Learning Assessment (Other Learner), Pressure Injury/TB/Substance, Pressure Injury, CAGE Last Updated: 30-Jun-2022 23:34 by Noris Pittman (RN) Normal [facility] TROPONIN I, HIGH SENSITIVITY on 07-01-2022 TROPONIN I, HIGH SENSITIVITY 5 ng/L Normal 0 - 13 [facility] Comment on above: Result Comment: . Less than 99th percentile of normal range cutoff- Female and children under 18 years old <14 ng/L; Male <21 ng/L: Negative Repeat testing should be performed if clinically indicated. . Female and children under 18 years old 14-50 ng/L; Male 21-50 ng/L: Consistent with possible cardiac damage and possible increased clinical risk. Serial measurements may help to assess extent of myocardial damage. . >50 ng/L: Consistent with cardiac damage, increased clinical risk and myocardial infarction. Serial measurements may help assess extent of myocardial damage. . NOTE: Children less than 1 year old may have higher baseline troponin levels and results should be interpreted in conjunction with the overall clinical context. . NOTE: Troponin I testing is performed using a different testing methodology at [facility] than at other [facility] hospitals. Direct result comparisons should only be made within the same method. Performed By: #### H BA1E #### [id number] [place] [address] Tropinin I.cardiac panel High sensitivity method 5 ng/L 0 - 13 -Cardiolog -[address] Work Phone: Comment on above: .Less than 99th perc entile of normal range cutoff-Female and children under 18 years old <14 ng/L; Male <21 ng/L: NegativeRepeat testing should be performed if clinically indicated. .Female and children under 18 years old 14-50 ng/L; Male 21-50 ng/L:Consistent with possible cardiac damage and possible increased clinical risk. Serial measurements may help to assess extent of myocardial damage. .>50 ng/L: Consistent with cardiac damage, increased clinical risk andmyocardial infarction. Serial measurements may help assess extent of myocardial damage. . NOTE: Children less than 1 year old may have higher baseline troponin levels and results should be interpreted in conjunction with the overall clinical context. .NOTE: Troponin I testing is performed using a different testing methodology at [facility] than at other [facility]. Direct result comparisons should only be made within the same method. Triage - EDon 07-01-2022 Triage - ED Chart Review: ARRIVAL INFORMATION Mode of Arrival: private vehicle CHIEF COMPLAINT ALINA PATEL is a Female patient with a chief complaint of vomiting. Onset of the Complaint: 30-Jun-2022 21:00 Triage Date/Time: 30-Jun-2022 23:26 SHERRY: 3V Pain Rating (0-10): 3 = Mild Pain location: heartburn like feeling. Vital Signs: Temperature: 97.9F ( 36.6C) taken temporal Blood Pressure: 159/79 Mean: 100 Heart Rate: 102 Respiratory Rate: 20 Pulse Oximetry: 95% on room air, no respiratory support. Height: 5 feet 8.00 inches. 172.7 CM Weight: 231.4 pounds. Calculated 105.0 kg. Calculated BMI (kg/m2): 35.205 Calculated BSA (m2) 2.24 [place] Coma Scale: Best Eye Response: (E4) spontaneous Best Motor Response: (M6) obeys commands Best Verbal Response: (V5) oriented [place] Score: 15 Cough lasting greater than 3 weeks: no Patient has homicidal thoughts: no Symptoms Are POSITIVE For: diaphoresis, distention, nausea and vomiting. Symptoms Are Negative For: anorexia, constipation, diarrhea, fever and rectal blood. Last Bowel Movement: 30-Jun-2022 13:00 Last Emesis: 30-Jun-2022 23:00 Last Known Well: known Time Last Known Well Date/Time: 30-Jun-2022 20:00 Risk Screens Suicide Risk Screen In the Past Month: Have you wished you were or wished you could go to sleep and not wake up no In the Past Month: Have you had any actual thoughts of killing yourself no In Your Lifetime: Have you ever done anything, started to do anything, or prepared to do anything to end your life no Interventions: [place]re[place] Fall Interventions: LOW INTERVENTIONS: *patient oriented to surroundings and call system, * patient/family falls education completed and documented, *patients fall status communicated during bedside handoff, *whiteboard updated, *mode of toileting discussed with patient, *bed in low position with brakes locked, *call light in reach, * non-skid footwear TRAVEL HISTORY Travel History Coronavirus Screening: no exposure or symptoms Travel Exposure History: NO travel to International locations in the past 30 days PAIN Pain Scale Used: RITU Pain Rating (0-10): 3 = Mild Past Medical History: Past Medical History Reviewedyes Electronic Signatures: Noris Pittman (ANN MARIE) (Signed 30-Jun-2022 23:32) Entered: Risk Screens, Pain, Travel History, Chart Review, Scores, Past Medical History Authored: Quick Triage, Risk Screens, Pain, Travel History, Chart Review, Scores, Past Medical History Last Updated: 30-Jun-2022 23:32 by Noris Pittman (ANN MARIE) [facility] UA MICROSCOPICon 07-01-2022 AMORPHOUS CRYSTAL 1+ /HPF Normal [facility] Comment on above: Performed By: #### L ACT #### [place] [address] Mucus Ql (Urine sed) 2+ /LPF Normal [facility] Comment on above: Performed By: #### L ACT #### [place] [address] RBC 1 /HPF Normal 0-5 [facility] Comment on above: Performed By: #### L ACT #### [place] [address] SQUAMOUS EPITH. CELLS 1 /HPF Normal [facility] Comment on above: Performed By: #### L ACT #### [place] [address] TRANSITIONAL EPITH.CELLS <1 Normal [facility] Comment on above: Performed By: #### L ACT #### [place] [id number] WBC 5 /HPF Normal 0-5 [facility] Comment on above: Performed By: #### L ACT #### [place] [address] URINALYSIS WITH CULTURE IF I NDICATEDon 07-01-2022 Appearance (U) HAZY Normal CLEAR [facility] Comment on above: Performed By: #### L ACT #### [place] [address] Bilirubin Ql (U) Negative Normal NEGATIVE [facility] Comment on above: Performed By: #### L ACT #### [place] [address] Color (U) Yellow Normal STRAW,YELLOW [facility] Comment on above: Performed By: #### L ACT #### [place] [address] Glucose Ql (U) 150(1+) Abnormal NEGATIVE [facility] Comment on above: Performed By: #### L ACT #### [place] [address] Hemoglobin Ql (U) Negative Normal NEGATIVE [facility] Comment on above: Performed By: #### L ACT #### [place] [address] Ketones Ql (U) 5(TRACE) Abnormal NEGATIVE [facility] Comment on above: Performed By: #### L ACT #### [address] [address] Leukocyte esterase Test strip Ql (U) TRACE Abnormal NEGATIVE [facility] Comment on above: Performed By: #### L ACT #### [address] [address] Nitrite Ql (U) Negative Normal NEGATIVE [facility] Comment on above: Performed By: #### L ACT #### [place] [address] pH (U) 5.0 [pH] Normal 5.0 - 8.0 [facility] Comment on above: Performed By: #### L ACT #### [address] [address] Protein Ql (U) 100(2+) Abnormal NEGATIVE [facility] Comment on above: Performed By: #### L ACT #### [address] [address] Specific gravity (U) [Rel density] 1.032 Normal 1.005 - 1.035 [facility] Comment on above: Performed By: #### L ACT #### [address] [address] Urobilinogen (U) [Mass/Vol] mg/dL Normal 0.0 - 1.9 [facility] Comment on above: Performed By: #### L ACT #### [address] [address] Color (U) Yellow See Below [facility]-Cardiolog [address] Work Phone: Comment on above: Reference Range: STR AW,YELLOW Glucose Ql (U) 150(1+) Abnormal NEGATIVE MP-Cardiol og [address] Work Phone: Ketones Ql (U) 5(TRACE) Abnormal NEGATIVE [facility]-Cardiol [facility] [address] Work Phone: Leukocyte esterase Test strip Ql (U) TRACE Abnormal NEGATIVE [facility] [address] Work Phone: pH (U) 5.0 [pH] 5.0 - 8.0 MP-Cardiolog y-[address] Work Phone: Protein (U) [Mass/Vol] 100(2+) Abnormal NEGATIVE MP-Cardiolog -[address] Work Phone: RBC (U) [#/Vol] Negative NEGATIVE MP-Cardio log -[address] Work Phone: Specific gravity (U) [Rel density] 1.032 1 See Below MP-Cardiolog -[place] [address] Work Phone: [phone] Comment on above: Reference Range: 1.0 05 - 1.035 URINALYSIS WITH CULTURE IF INDICATED Negative NEGATIVE MP-Cardiolog y-[place] [address] Work Phone: [phone] URINALYSIS WITH CULTURE IF INDICATED <2.0 0.0 - 1.9 MP-Cardiolog y-[place] [address] [address] Work Phone: [phone] URINALYSIS WITH CULTURE IF INDICATED HAZY CLEAR -Cardiolog y-[place] [address] [address] Work Phone: [phone] URINE CULTURE,BACTERIALon URINE CULTURE,BACTERIAL PATIENT: ALINA PATEL LOCATION: [facility]#: [id number] : 56 AGE: SEX: F ORDERED BY: AYALA GUAJARDO SOURCE: URINE COLLECTED: 07/01/22 00:11 ANTIBIOTICS AT [facility].: RECEIVED : 07/01/22 11:53 SITE: R E S U L T S URINE CULTURE,BACTERIAL FINAL 07/02/22 08:39 NO SIGNIFICANT GROWTH. Normal [facility] Comment on above: Performed By: #### H BA1E #### [facility] [address] [place] [address] Urinalysis, Microscopicon Urinalysis, Microscopic 1+ MP-Cardiolog [facility] [employer] Work Phone: [phone] Urinalysis, Microscopic 2+ MP-Cardiolog [facility] [place] [address] Work Phone: [phone] Urinalysis, Microscopic <1 MP-Cardiolog y-[place] [address] [address] Work Phone: [phone] Urinalysis, Microscopic 1 {/HPF} 0-5 MP-Cardiolog [place] [address] [address] Work Phone: [phone] Urinalysis, Microscopic 5 {/HPF} 0-5 [facility]-Cardiolog y-[place] [address] Work Phone: [phone] CARDIAC SCORINGon 023 CT CARDIAC SCORING Patient Name: ALINA PATEL STUDY: CT CARDIAC SCORING; 06/26/2022 2:38 pm INDICATION: chest pain I70.90: Atherosclerosis. COMPARISON: None. ACCESSION NUMBER(S): [id number] ORDERING CLINICIAN: TYLER BAEZ TECHNIQUE: Using prospective ECG gating, CT scan of the coronary arteries was performed without intravenous contrast. Coronary calcium scoring was performed according to the method of Agatston. FINDINGS: The score and distribution of calcium in the coronary arteries is as follows: Left Main Coronary: 0. Left Anterior Descendin.77. Left Circumflex: 0. Right Coronary Artery: 1.03. Total: 6.8. There is bilateral dependent atelectasis. The aorta is without aneurysmal dilatation evident.Calcified atheromatous disease is seen of the aorta. The heart is not enlarged. No pericardial effusion is evident. No hilar or mediastinal lymphadenopathy is evident. There appears to be a degree of diffuse fatty infiltration of the liver. IMPRESSION: 1. Coronary artery calcium score of 6.8*. 2. Fatty infiltration of the liver. Correlation with liver function tests may be helpful. *Coronary artery calcium scoring may be helpful in predicting the risk for future coronary heart disease events. According to the [employer] Clinical Expert Consensus Task Force, such testing provides important prognostic information in patients with more than one coronary heart disease risk factor. The coronary artery calcium score correlates with the annual risk of a non-fatal myocardial infarction or coronary heart disease . Coronary artery score Annual Risk 0-99 0.4% 100-399 1.3% >400 2.4% These three breakpoints correspond to lower, intermediate and high risk states for future coronary events. Such information should be used, along with appropriate clinical judgment, to make decisions regarding the intensity of risk factor management strategies to treat blood lipids and to modify other non-lipid coronary risk factors. Reference: [place] P et al. Circulation. 2007; 115:402-426 Electronically signed by: PHANI DENNISON MD Normal [facility] CT Cardiac Scoringon 023 CT Cardiac Scoring Normal MP-Cardiolog -[address] Work Phone: Office Visit (Cardiology)on 06-23-2022 Follow-up visit Diagnoses/Problems Assessed Screening for heart disease (V81.2) (Z13.6) Orders Screening for heart disease IO EKG Electrocardiogram- 12 Lead; Status:Complete; Done: [id number] Chief Complaint ALINA PATEL is being seen for a cardiovascular evaluation . chest pain. History of Present Illness I was requested by Dr. Caballero to evaluate this patient in consultation for cardiac assessment. Patient 61-year-old non-smoker diabetic female with extensive prior medical history significant for hypertension, diabetes, hyperlipidemia, morbid obesity, GERD, TIA, atherosclerotic plaques on carotid arteries coming today for cardiovascular assessment. Patient endorses chest pain for many years. She describes this pain as a sharp pain, starting on the left side of her chest, radiating to her left arm and is self-limited. This pain is not related to exercise or extenuation activities. However, it is associated with shortness of breath. Patient denies palpitations, lightheadedness, headaches, fever, chills, orthopnea, paroxysmal nocturnal dyspnea or syncope. Of note, the patient was sent from Dr. Caballero's office to the ED are recently due to chest pain. This pain was different from the pain that she used to have before, started on the right side of the chest, lasted for around 1 hour and was self-limited. She was worked up in the ED, with no new EKG abnormalities or troponin elevation. She was discharged and oriented to search for cardiovascular assessment. Of note, the patient states that she was on Lipitor but she was feeling cough. After switching for pravastatin, the patient feels much better and is tolerating well the medication. Her EKG showing normal sinus rhythm with Q waves in V1 to V3. Her prior echo shows normal left ventricular ejection fraction of 60% and impaired relaxation of LV diastolic filling. Her carotid artery duplex ultrasound shows bilateral atherosclerotic plaques with <50% stenosis on both sides. Her monitor showed normal sinus rhythm, from bradycardia just sinus tachycardia. The maximum heart rate was 150 and the minimum was 58 bpm's, the average heart rate was 81 bpm. There were 419 PVCs with a burden of 0.05%. There was 1 occurrence of ventricular tachycardia with the longest episode of 6 beats. There were 230 PSVC's with a burden of 0.03%. There were 6 occurrences of SVT with the longest episode of 8 beats. Active Problems Problems Alternating constipation and diarrhea (787.99) (R19.8) Arthritis of knee, left (716.96) (M17.12) BMI 36.0-36.9,adult (V85.36) (Z68.36) Carotid disease, bilateral (447.9) (I77.9) Class 2 severe obesity due to excess calories with serious comorbidity and body mass index (BMI) of 36.0 to 36.9 in adult (278.01,V85.36) (E66.01,Z68.36) Class 2 severe obesity with body mass index (BMI) of 35 to 39.9 with serious comorbidity (278.01) (E66.01) Complex tear of medial meniscus of left knee as current injury, subsequent encounter (V58.89) (S83.232D) Diabetes (250.00) (E11.9) Encounter for screening mammogram for breast cancer (V76.12) (Z12.31) Encounter for screening mammogram for malignant neoplasm of breast (V76.12) (Z12.31) MARCH 2019 GERD (gastroesophageal reflux disease) (530.81) (K21.9) Hepatic steatosis (571.8) (K76.0) History of claustrophobia (V11.8) (Z86.59) HTN (hypertension) (401.9) (I10) Hyperlipidemia LDL goal <100 (272.4) (E78.5) Medial epicondylitis of right elbow (726.31) (M77.01) Nocturnal hypoxemia (327.24) (G47.34) Other specified inflammation of vagina and vulva (616.89) (N76.89) Screening for colon cancer (V76.51) (Z12.11) Screening for heart disease (V81.2) (Z13.6) Taking medication for chronic disease (799.9) (R69) TIA (transient ischemic attack) (435.9) (G45.9) Vitamin D deficiency (268.9) (E55.9) Surgical History Problems History of section 8 c-sections History of Cholecystectomy History of Complete colonoscopy History of Knee arthroscopy Left Past Medical History Problems History of diabetes mellitus (V12.29) (Z86.39) History of hyperlipidemia (V12.29) (Z86.39) History of hypertension (V12.59) (Z86.79) Current Meds Medication NameInstruction amLODIPine Besylate 10 MG Oral TabletTAKE 1 TABLET DAILY. Aspirin Low Dose 81 MG Oral Tablet Delayed ReleaseTAKE 1 TABLET BY MOUTH EVERY DAY BD Pen Needle Short U/F 31G X 8 MMUSE DIRECTED ONCE DAILY WITH [employer] INJECTION Blood Glucose Monitor System w/Device KitUSE DIRECTED. Blood Glucose Test In Vitro StripTEST 2 TIMES DAILY Calcium Citrate + D3 200-250 MG-UNIT TABS Cranberry CAPS Esomeprazole Magnesium 20 MG Oral Capsule Delayed ReleaseTAKE 1 CAPSULE Daily Fiber CAPS glipiZIDE XL 10 MG Oral Tablet Extended Release 24 HourTake 1 tablet twice a day Ibuprofen TABS LancetsUSE TO TEST BLOOD SUGAR 2 TIMES DAILY Losartan Potassium 100 MG Oral TabletTAKE 1 TABLET BY MOUTH EVERY DAY Magnesium CAPSTAKE 1 CAPSULE Daily metFORMIN HCl ER 500 MG Oral Tablet Exten (more content not included)... Normal [employer] Tobacco Screening.on 023 Fall risk assessment b) One or more falls in the last year [facility] [employer] Work Phone: Tobacco use status CPHS b) No [facility] [employer] Work Phone: CBC AND DIFFERENTIALon 06-16 % AUTOMATED IMMATURE GRAN 1.2 % High 0.0 - 0.9 [facility] Comment on above: Result Comment: Elaine ture Granulocyte Count (IG) includes promyelocytes, myelocytes and metamyelocytes but does not include bands. Percent differential counts (%) should be interpreted in the context of the absolute cell counts (cells/L). Performed By: #### H BA1E #### [address] [address] Basophils (Bld) [#/Vol] 0.06 10*3/uL Normal 0.00 - 0.10 [facility] Comment on above: Performed By: #### H BA1E #### [address] [address] Basophils/100 WBC (Bld) 0.8 % Normal 0.0 - 2.0 [facility] Comment on above: Performed By: #### H BA1E #### [address] [address] Eosinophils (Bld) [#/Vol] 0.22 10*3/uL Normal 0.00 - 0.70 [facility] Comment on above: Performed By: #### H BA1E #### [address] [address] Eosinophils/100 WBC (Bld) 2.8 % Normal 0.0 - 6.0 [facility] Comment on above: Performed By: #### H BA1E #### [address] [address] Erythrocyte distribution width (RBC) [Ratio] 14.2 % Normal 11.5 - 14.5 [facility] Comment on above: Performed By: #### H BA1E #### [address] [address] Hematocrit (Bld) [Volume fraction] 45.8 % Normal 36.0 - 46.0 [facility] Comment on above: Performed By: #### H GRETCHEN1E #### [address] [address] Hemoglobin (Bld) [Mass/Vol] 15.3 g/dL Normal 12.0 - 16.0 [facility] Comment on above: Performed By: #### H BA1E #### [address] [address] Lymphocytes (Bld) [#/Vol] 2.47 10*3/uL Normal 1.20 - 4.80 [facility] Comment on above: Performed By: #### H BA1E #### [address] [address] Lymphocytes/100 WBC (Bld) 31.6 % Normal 13.0 - 44.0 [facility] Comment on above: Performed By: #### H BA1E #### [address] [address] MCHC (RBC) [Mass/Vol] 33.4 g/dL Normal 32.0 - 36.0 [facility] Comment on above: Performed By: #### H BA1E #### [address] [address] MCV (RBC) [Entitic vol] 80 fL Normal 80 - 100 [facility] Comment on above: Performed By: #### H GRETCHEN1E #### [address] [address] Monocytes (Bld) [#/Vol] 0.40 10*3/uL Normal 0.10 - 1.00 [facility] Comment on above: Performed By: #### H GRETCHEN1E #### [address] [address] Monocytes/100 WBC (Bld) 5.1 % Normal 2.0 - 10.0 [facility] Comment on above: Performed By: #### H GRETCHEN1E #### [address] [address] Neutrophils (Bld) [#/Vol] 4.57 10*3/uL Normal 1.20 - 7.70 [facility] Comment on above: Result Comment: Perc ent differential counts (%) should be interpreted in the context of the absolute cell counts (cells/L). Performed By: #### H GRETCHEN1E #### [address] [address] Neutrophils/100 WBC (Bld) 58.5 % Normal 40.0 - 80.0 [facility] Comment on above: Performed By: #### H GRETCHEN1E #### [address] [address] Platelets (Bld) [#/Vol] 244 10*3/uL Normal 150 - 450 [facility] Comment on above: Performed By: #### H GRETCHEN1E #### [address] [address] RBC 5.72 x10E12/L High 4.00 - 5.20 [facility] Comment on above: Performed By: #### H GRETCHEN1E #### [address] [address] WBC (Bld) [#/Vol] 7.8 10*3/uL Normal 4.4 - 11.3 [facility] Comment on above: Performed By: #### H GRETCHEN1E #### [address] [address] CHEST 1 VIEWon 06-16-2022 CHEST 1 VIEW Patient Name: ALINA PATEL STUDY: CHEST 1 VIEW; 06/16/2022 9:35 am INDICATION: Chest Pain . COMPARISON: None. ACCESSION NUMBER(S): [id number] ORDERING CLINICIAN: SHAHID RAI TECHNIQUE: FINDINGS: The heart is normal in size. There is no discrete consolidation or pleural fluid. The mediastinum is unremarkable. There are degenerative changes of the spine. COMPARISON OF FINDING: IMPRESSION: No acute cardiopulmonary disease. Electronically signed by: GEORGIA ORTIZ MD Normal [facility] COMPREHENSIVE PANELon 2022 Albumin [Mass/Vol] 4.5 g/dL Normal 3.4 - 5.0 [facility] Comment on above: Performed By: #### H BA1E #### [place] [address] ALP [Catalytic activity/Vol] 142 U/L High 33 - 136 [facility] Comment on above: Performed By: #### H BA1E #### [place] [id number] ALT [Catalytic activity/Vol] 31 U/L Normal 7 - 45 [facility] Comment on above: Result Comment: Alice ents treated with Sulfasalazine may generate falsely decreased results for ALT. Performed By: #### H BA1E #### [address] [address] Anion gap [Moles/Vol] 16 mmol/L Normal 10 - 20 [facility] Comment on above: Performed By: #### H BA1E #### [address] [address] AST [Catalytic activity/Vol] 23 U/L Normal 9 - 39 [facility] Comment on above: Performed By: #### H BA1E #### [address] [address] Bilirubin [Mass/Vol] 0.7 mg/dL Normal 0.0 - 1.2 [facility] Comment on above: Performed By: #### H BA1E #### [address] [address] Calcium [Mass/Vol] 9.8 mg/dL Normal 8.6 - 10.3 [facility] Comment on above: Performed By: #### H GRETCHEN1E #### [address] [address] Chloride [Moles/Vol] 97 mmol/L Low 98 - 107 [facility] Comment on above: Performed By: #### H BA1E #### [address] [address] Creatinine [Mass/Vol] 0.52 mg/dL Normal 0.50 - 1.05 [facility] Comment on above: Performed By: #### H GRETCHEN1E #### [address] [address] eGFR FEMALE >90 Normal >90 [facility] Comment on above: Result Comment: CALC ULATIONS OF ESTIMATED GFR ARE PERFORMED USING THE 2020 CKD-EPI STUDY REFIT EQUATION WITHOUT THE RACE VARIABLE FOR THE IDMS-TRACEABLE CREATININE METHODS. https://jasn.asnjournals.org/content/early/ASN.2714021164 Performed By: #### H GRETCHEN1E #### [address] [address] Glucose [Mass/Vol] 356 mg/dL High 74 - 99 [facility] Comment on above: Performed By: #### H BA1E #### [address] [address] HCO3 (Bld) [Moles/Vol] 24 mmol/L Normal 21 - 32 [facility] Comment on above: Performed By: #### H BA1E #### [address] [address] Potassium [Moles/Vol] 4.2 mmol/L Normal 3.5 - 5.3 [facility] Comment on above: Performed By: #### H BA1E #### [address] [address] Protein [Mass/Vol] 6.9 g/dL Normal 6.4 - 8.2 [facility] Comment on above: Performed By: #### H BA1E #### [address] [address] Sodium [Moles/Vol] 133 mmol/L Low 136 - 145 [facility] Comment on above: Performed By: #### H BA1E #### [address] [address] Urea nitrogen [Mass/Vol] 20 mg/dL Normal 6 - 23 [facility] Comment on above: Performed By: #### H BA1E #### [address] [address] Complete Blood Count + Diffe nalini 06-16-2022 Basophils/100 WBC (Bld) 0.8 % 0.0 - 2.[address] Work Phone: [phone] Erythrocyte distribution width (RBC) [Ratio] 14.2 % See Below [address] Work Phone: [phone] Comment on above: Reference Range: 11. 5 - 14.5 Hematocrit (Bld) [Volume fraction] 45.8 % See Below [address] Work Phone: [phone] Comment on above: Reference Range: 36. 0 - 46.0 Hemoglobin (Bld) [Mass/Vol] 15.3 g/dL See Below [address] Work Phone: [phone] Comment on above: Reference Range: 12. 0 - 16.0 Lymphocytes/100 WBC (Bld) 31.6 % See Below [address] Work Phone: [phone] Comment on above: Reference Range: 13. 0 - 44.0 MCHC (RBC) [Mass/Vol] 33.4 g/dL See Below [address] Work Phone: [phone] Comment on above: Reference Range: 32. 0 - 36.0 MCV (RBC) [Entitic vol] 80 fL 80 - [address] Work Phone: [phone] Monocytes/100 WBC (Bld) 5.1 % 2.0 - 10.[address] Work Phone: Neutrophils/100 WBC (Bld) 58.5 % See Below [facility] [address] Work Phone: Comment on above: Reference Range: 40. 0 - 80.0 Platelets (Bld) [#/Vol] 244 10*3/uL 150 - 450 [facility] [address] Work Phone: RBC (Bld) [#/Vol] 5.72 {x10E12/L} above high threshold See Below [facility] [address] Work Phone: [phone] Comment on above: Reference Range: 4.0 0 - 5.20 WBC (Bld) [#/Vol] 7.8 10*3/uL 4.4 - 11.3 [facility] [address] Work Phone: [phone] Complete Blood Count + Differential 0.06 {x10E9/L} See Below [facility] [address] Work Phone: [phone] Comment on above: Reference Range: 0.0 0 - 0.10 Complete Blood Count + Differential 0.22 {x10E9/L} See Below [facility] [address] Work Phone: [phone] Comment on above: Reference Range: 0.0 0 - 0.70 Complete Blood Count + Differential 0.40 {x10E9/L} See Below [facility] [address] Work Phone: [phone] Comment on above: Reference Range: 0.1 0 - 1.00 Complete Blood Count + Differential 2.47 {x10E9/L} See Below [facility] [address] Work Phone: [phone] Comment on above: Reference Range: 1.2 0 - 4.80 Complete Blood Count + Differential 4.57 {x10E9/L} See Below [facility] [address] Work Phone: [phone] Comment on above: Reference Range: 1.2 0 - 7.70 Percent differential counts (%) should be interpreted in the context of the absolute cell counts (cells/L). Complete Blood Count + Differential 2.8 % 0.0 - 6.[address] Work Phone: [phone] Complete Blood Count + Differential 1.2 % above high threshold 0.0 - 0.[address] Work Phone: [phone] Comment on above: Immature Granulocyte Count (IG) includes promyelocytes, myelocytes and metamyelocytes but does not include bands. Percent differential counts (%) should be interpreted in the context of the absolute cell counts (cells/L). D-DIMER, VTE EXCLUSIONon D-DIMER, VTE EXCLUSION 298 ng/mL FEU Normal < or = 500 [facility] Comment on above: Result Comment: The VTE Exclusion D-Dimer assay is reported in ng/mL Fibrinogen Equivalent Units (FEU). Per manufacturers instructions for use, a value of less than 500 ng/mL (FEU) may help to exclude DVT or PE in outpatients when the assay is used with a clinical pretest probability assessment. (AEMR must utilize and document eCalc Wells Score Deep Vein Thrombosis Risk for DVT exclusion only; Emergency Department should utilize Guidelines for Emergency Department Use of the VTE Exclusion D-Dimer and Clinical Pretest probability assessment model for DVT or PE exclusion.) Performed By: #### H BA1E #### [place] [address] Laboratory - Chemistry and C hemistry - challengeon 06-16-2022 Albumin BCP dye [Mass/Vol] 4.5 g/dL 3.4 - 5.[address] Work Phone: [phone] ALP [Catalytic activity/Vol] 142 U/L above high threshold 33 - [address] Work Phone: [phone] ALT With P-5'-P [Catalytic activity/Vol] 31 U/L 7 - [address] Work Phone: [phone] Comment on above: Patients treated wit h Sulfasalazine may generate falsely decreased results for ALT. Anion gap [Moles/Vol] 16 mmol/L 10 - [address] Work Phone: AST With P-5'-P [Catalytic activity/Vol] 23 U/L 9 - [address] Work Phone: Bilirubin [Mass/Vol] 0.7 mg/dL 0.0 - 1.[address] Work Phone: Calcium [Mass/Vol] 9.8 mg/dL 8.6 - 10.[address] Work Phone: Chloride [Moles/Vol] 97 mmol/L below low threshold 98 - [address] Work Phone: CO2 [Moles/Vol] 24 mmol/L 21 - [address] Work Phone: Creatinine [Mass/Vol] 0.52 mg/dL See Below [address] Work Phone: Comment on above: Reference Range: 0.5 0 - 1.05 Glucose [Mass/Vol] 356 mg/dL above high threshold 74 - [address] Work Phone: Potassium [Moles/Vol] 4.2 mmol/L 3.5 - 5.[address] Work Phone: Protein [Mass/Vol] 6.9 g/dL 6.4 - 8.[address] Work Phone: Sodium [Moles/Vol] 133 mmol/L below low threshold 136 - [address] Work Phone: Urea nitrogen [Mass/Vol] 20 mg/dL 6 - [address] Work Phone: MAGNESIUMon 06-16-2022 Magnesium [Mass/Vol] 1.54 mg/dL Low 1.60 - 2.40 [facility] Comment on above: Performed By: #### H BA1E #### [facility] [address] [place] [address] Magnesium, Serumon Magnesium [Mass/Vol] 1.54 mg/dL below low threshold See Below [facility] [address] Work Phone: Comment on above: Reference Range: 1.6 0 - 2.40 No Panel Informationon 06-16 >90 >90 [facility] [address] Work Phone: Comment on above: CALCULATIONS OF PENELOPE MATED GFR ARE PERFORMED USING THE 2020 CKD-EPI STUDY REFIT EQUATION WITHOUT THE RACE VARIABLE FOR THE IDMS-TRACEABLE CREATININE METHODS.https://jasn.asnjournals.org/content//ASN.20 04847768 298 {ng/mL_FEU} < or = 500 [facility] [address] Work Phone: Comment on above: The VTE Exclusion D- Dimer assay is reported in ng/mL Fibrinogen Equivalent Units (FEU). Per manufacturers instructions for use, a value of less than 500 ng/mL (FEU) may help to exclude DVT or PE in outpatients when the assay is used with a clinical pretest probability assessment. (AEMR must utilize and document eCalc Wells Score Deep Vein Thrombosis Risk for DVT exclusion only; Emergency Department should utilize Guidelines for Emergency Department Use of the VTE Exclusion D-Dimer and Clinical Pretest probability assessment model for DVT or PE exclusion.) Provider Note - ED v3on 05-31 Provider Note - ED v3 Provider Note: Chart Review: ED NOTES ED NOTES: Limitations to History: None HPI: 61-year-old female presents with concern for chest pain and shortness of breath. Began 2 days ago. Was seen for her follow-up by primary care this morning and sent in for evaluation. States she feels like it is a presence in her chest. Denies any pressure or pain. States that she noticed she was short of breath when she climbs the stairs. Denies any nausea, vomiting, diaphoresis. Denies any fever, chills, cough. ----- -------- Physical Exam: VS: As documented in the triage note and EMR flowsheet from this visit were reviewed. Appearance: Alert. cooperative, in no acute distress. Skin: Intact, dry skin, no lesions, rash, petechiae or purpura. Eyes: PERRLA, EOMs intact, Conjunctiva pink with no redness or exudates. HENT: Normocephalic, atraumatic. Nares patent. No intraoral lesions. Neck: Supple, without meningismus. Trachea at midline. No lymphadenopathy. Pulmonary: Clear bilaterally with good chest wall excursion. No rales, rhonchi or wheezing. No accessory muscle use or stridor. Cardiac: Regular rate and rhythm, no rubs, murmurs, or gallops. No JVD, Carotids without bruits. Abdomen: Abdomen is soft, nontender, and nondistended. No palpable organomegaly. No rebound or guarding. No CVA tenderness. Nonsurgical abdomen Genitourinary: Exam deferred. Musculoskeletal: Full range of motion. Pulses full and equal. No cyanosis, clubbing, or edema. Neurological: Cranial nerves are grossly intact, grossly normal sensation, no weakness, no focal findings identified. Psychiatric: Appropriate mood and affect. HISTORY OF PRESENTING ILLNESS ALINA is a 61 year old Female and was seen by me at 16-Jun-2022 09:10 for a chief complaint of chest pain (pt sent to er from dr's office with c/o chest tightness and sob on and off x 2 days. pt is diabetic, last a1c 11)(1). Triage Information: Most recent Vital Sign Value Date Temp (F): 96.8 06-16-2022 09:10 Temp (C): 36 06-16-2022 09:10 Heart Rate (beats/min): 92 06-16-2022 09:10 Respirations (breaths/min): 16 06-16-2022 09:10 SpO2 (%): 96 06-16-2022 09:10 BP Systolic (mm Hg): 185 06-16-2022 09:10 BP Diastolic (mm Hg): 94 06-16-2022 09:10 PAST MEDICAL HISTORY ALLERGIES/INTOLERANCES: Allergy Allergen: morphine Type: Drug Reaction: Facial Swelling Intolerance Allergen: codeine Type: Drug Reaction: Nausea/Vomiting HEALTH HISTORY: Medical History Name:Diabetes mellitus Code:E11.9 Name:Hypertension Code:I10 Name:Hypercholesterolemia Code:E78.00 Name:GERD (gastroesophageal reflux disease) Code:K21.9 OUTPATIENT MEDICATIONS: Home Medications Review Status for Reconciliation: Not Done Med Status: Patient Currently Takes Medications Drug Name: Victoza 18 mg/3 mL subcutaneous solution Instructions: subcutaneous once a day Drug Name: NexIUM 20 mg oral delayed release capsule Instructions: 1 cap(s) orally once a day Drug Name: losartan 50 mg oral tablet Instructions: 1 tab(s) orally once a day Drug Name: Cranberry oral capsule Instructions: 1 cap(s) orally once a day Drug Name: Fiber Choice 1.5 g oral tablet, chewable Instructions: 1 tab(s) orally once a day Drug Name: Vitamin D3 400 intl units (10 mcg) oral capsule Instructions: 1 cap(s) orally once a day Drug Name: Calcium 600+D 600 mg-200 intl units (5 mcg) oral tablet Instructions: 1 tab(s) orally once a day Drug Name: pravastatin 20 mg oral tablet Instructions: 1 tab(s) orally once a day Drug Name: aspirin 81 mg oral tablet, disintegrating Instructions: 1 tab(s) orally once a day Drug Name: metFORMIN Instructions: 250 milligram(s) orally 3 times a day Drug Name: magnesium gluconate 500 mg oral tablet Instructions: 1 tab(s) orally 3 times a day SIGNIFICANT EVENTS: Clinical Events Description:Surgical Procedure Additional Notes:1. SCOPE L KNEE W/PARTIAL MENISCECTOMY and chondroplasty; Past Medical History Description:Diabetes Description:Hypertension (HTN) Description:Hyperlipidemi a CRITICAL CARE RESULTS: Recent Lab Results: I have reviewed these laboratory results: Troponin I, High Sensitivity Trending View [id number] 10:12:00 16-Jun-2022 09:20:00 Troponin I, High Sensitivity4 5 Complete Blood Count + Differential 16-Jun-2022 09:20:00 ResultValue White Blood Cell Count 7.8 Red Blood Cell Count 5.72 H HGB 15.3 HCT 45.8 MCV 80 MCHC 33.4 PLT 244 RDW-CV 14.2 Neutrophil % 58.5 Immature Granulocytes % 1.2 H Lymphocyte % 31.6 Monocyte % 5.1 Eosinophil % 2.8 Basophil % 0.8 Neutrophil Count 4.57 Lymphocyte Count 2.47 Monocyte Count 0.40 Eosinophil Count 0.22 Basophil Count 0.06 Comprehensive Metabolic Panel 17-A (more content not included)... Normal [facility] Radiologyon 06-16-2022 XR Chest Single view Normal [facility] Work Phone: Risk Screen - Adult Emergenc yon 06-16-2022 Risk Screen - Adult Emergency Preferred Language: Preferred Language: Preferred Language for Discussing Health Care (patient/designee)Lithuanian Patient Preferred Pharmacy: Patient Preferred Pharmacy Statement: I have reviewed and updated the patient's preferred pharmacy selection for today's visit. Advanced Directives: Advance Directive/DNRno Family Violence Adult: Abuse Screen: Are you or have you been threatened or abused physically, emotionally, or sexually by anyoneno Learning Assessment (Patient): Learning Assessment (Patient): Patient is Able to be Assessed for Learningyes Factors Influencing Readiness to Learnn/a Factors that Impact Ability to Learnnone Devices/Methods Used to Communicatenone Learning Preferencesverbal instruction Cultural Considerationsnone Developmental Considerationsnone Synagogue Considerationsnone Learning Assessment (Other Learner): Learning Assessment (Other Learner): Other learner availableno Pressure Injury/TB/Substance: Pressure Injury: Do you have a coughno Smoking Statusnever smoker Alcohol Usedenies Drug Usedenies Admission Risk Screen: Significant IndicatorsComplete CAGE: CAGE: [place] an [place] a [place] Center [place] [place]/[place]/ [place] no Electronic Signatures: Dottie Clark (RN) (Signed 16-Jun-2022 09:18) Authored: Preferred Language, Patient Preferred Pharmacy, Advanced Directives, Family Violence Adult, Learning Assessment (Patient), Learning Assessment (Other Learner), Pressure Injury/TB/Substance, Pressure Injury, CAGE Last Updated: 16-Jun-2022 09:18 by Dottie Clark (ANN MARIE) Normal [facility] TROPONIN I, HIGH SENSITIVITY on 06-16-2022 TROPONIN I, HIGH SENSITIVITY Canceled Normal [facility] Comment on above: Order Comment: TEST TROPONIN I, HIGH SENSITIVITY WAS CANCELLED, 06/16/2022 18:13 discharged. Result Comment: . Less than 99th percentile of normal range cutoff- Female and children under 18 years old <14 ng/L; Male <21 ng/L: Negative Repeat testing should be performed if clinically indicated. . Female and children under 18 years old 14-50 ng/L; Male 21-50 ng/L: Consistent with possible cardiac damage and possible increased clinical risk. Serial measurements may help to assess extent of myocardial damage. . >50 ng/L: Consistent with cardiac damage, increased clinical risk and myocardial infarction. Serial measurements may help assess extent of myocardial damage. . NOTE: Children less than 1 year old may have higher baseline troponin levels and results should be interpreted in conjunction with the overall clinical context. . NOTE: Troponin I testing is performed using a different testing methodology at [facility] than at other [facility]. Direct result comparisons should only be made within the same method. Performed By: #### H BA1E #### [id number] [place] [address] TROPONIN I, HIGH SENSITIVITY 4 ng/L Normal 0 - 13 [facility] Comment on above: Result Comment: . Less than 99th percentile of normal range cutoff- Female and children under 18 years old <14 ng/L; Male <21 ng/L: Negative Repeat testing should be performed if clinically indicated. . Female and children under 18 years old 14-50 ng/L; Male 21-50 ng/L: Consistent with possible cardiac damage and possible increased clinical risk. Serial measurements may help to assess extent of myocardial damage. . >50 ng/L: Consistent with cardiac damage, increased clinical risk and myocardial infarction. Serial measurements may help assess extent of myocardial damage. . NOTE: Children less than 1 year old may have higher baseline troponin levels and results should be interpreted in conjunction with the overall clinical context. . NOTE: Troponin I testing is performed using a different testing methodology at [facility] than at other [facility]. Direct result comparisons should only be made within the same method. Performed By: #### H BA1E #### [address] [address] TROPONIN I, HIGH SENSITIVITY 5 ng/L Normal 0 - 13 [facility] Comment on above: Result Comment: . Less than 99th percentile of normal range cutoff- Female and children under 18 years old <14 ng/L; Male <21 ng/L: Negative Repeat testing should be performed if clinically indicated. . Female and children under 18 years old 14-50 ng/L; Male 21-50 ng/L: Consistent with possible cardiac damage and possible increased clinical risk. Serial measurements may help to assess extent of myocardial damage. . >50 ng/L: Consistent with cardiac damage, increased clinical risk and myocardial infarction. Serial measurements may help assess extent of myocardial damage. . NOTE: Children less than 1 year old may have higher baseline troponin levels and results should be interpreted in conjunction with the overall clinical context. . NOTE: Troponin I testing is performed using a different testing methodology at [facility] than at other [facility]. Direct result comparisons should only be made within the same method. Performed By: #### H BA1E #### [address] [address] Tropinin I.cardiac panel High sensitivity method 4 ng/L 0 - 13 -[facility] y-[address] Work Phone: Comment on above: .Less than 99th perc entile of normal range cutoff-Female and children under 18 years old <14 ng/L; Male <21 ng/L: NegativeRepeat testing should be performed if clinically indicated. .Female and children under 18 years old 14-50 ng/L; Male 21-50 ng/L:Consistent with possible cardiac damage and possible increased clinical risk. Serial measurements may help to assess extent of myocardial damage. .>50 ng/L: Consistent with cardiac damage, increased clinical risk andmyocardial infarction. Serial measurements may help assess extent of myocardial damage. . NOTE: Children less than 1 year old may have higher baseline troponin levels and results should be interpreted in conjunction with the overall clinical context. .NOTE: Troponin I testing is performed using a different testing methodology at [facility] than at other system hospitals. Direct result comparisons should only be made within the same method. Tropinin I.cardiac panel High sensitivity method 5 ng/L 0 - 13 [facility] Work Phone: Comment on above: .Less than 99th perc entile of normal range cutoff-Female and children under 18 years old <14 ng/L; Male <21 ng/L: NegativeRepeat testing should be performed if clinically indicated. .Female and children under 18 years old 14-50 ng/L; Male 21-50 ng/L:Consistent with possible cardiac damage and possible increased clinical risk. Serial measurements may help to assess extent of myocardial damage. .>50 ng/L: Consistent with cardiac damage, increased clinical risk andmyocardial infarction. Serial measurements may help assess extent of myocardial damage. . NOTE: Children less than 1 year old may have higher baseline troponin levels and results should be interpreted in conjunction with the overall clinical context. .NOTE: Troponin I testing is performed using a different testing methodology at [facility] than at other [facility]. Direct result comparisons should only be made within the same method. Triage - EDon 06-16-2022 Triage - ED Chart Review: PRIMARY ASSESSMENT ABCD Normal Findings: airway open and patent, circulation normal and alert and oriented ARRIVAL INFORMATION Means of Arrival: Ambulatory Mode of Arrival: private vehicle Arrival From: home Accompanied By: self Language: Spoken Language Preferred: Lithuanian Reading Language Preferred: Lithuanian Present on Arrival: Device Present on Arrival to ED: no CHIEF COMPLAINT ALINA PATEL is a Female patient with a chief complaint of chest pain (pt sent to er from 's office with c/o chest tightness and sob on and off x 2 days. pt is diabetic, last a1c 11). Triage Date/Time: 16-Jun-2022 09:00 SHERRY: 2 Pain Rating (0-10): 2 = Mild Pain location: chest Vital Signs: Temperature: 96.8F ( 36.0C) taken temporal Blood Pressure: 185/94 Mean: Heart Rate: 92 Respiratory Rate: 16 Pulse Oximetry: 96% on room air, no respiratory support. Height: 5 feet 8.00 inches. 172.7 CM Weight: 242.5 pounds. Calculated 110.0 kg. (stated) Calculated BMI (kg/m2): 36.881 Calculated BSA (m2) 2.30 [place] Coma Scale: Best Eye Response: (E4) spontaneous Best Motor Response: (M6) obeys commands Best Verbal Response: (V5) oriented Sanna Score: 15 Allergies: yes Patient has homicidal thoughts: no Symptoms Are POSITIVE For: dyspnea and pain Area Of Chest Pain: Entire Chest Area Risk Screens Suicide Risk Screen In the Past Month: Have you wished you were or wished you could go to sleep and not wake up no In the Past Month: Have you had any actual thoughts of killing yourself no In Your Lifetime: Have you ever done anything, started to do anything, or prepared to do anything to end your life no Ar[place] Fall Scale Screening Has the patient fallen before (or is the patient in the ED as a result of a fall) has not had a fall Does the patient have an impaired gait does not have impaired gait Is the patient cognitively impaired not cognitively impaired Interventions: Arreaga Fall Interventions: LOW INTERVENTIONS: *patient oriented to surroundings and call system, * patient/family falls education completed and documented, *patients fall status communicated during bedside handoff, *whiteboard updated, *mode of toileting discussed with patient, *bed in low position with brakes locked, *call light in reach, * non-skid footwear TRAVEL HISTORY Travel History Coronavirus Screening: no exposure or symptoms Travel Exposure History: NO travel to International locations in the past 30 days PAIN Pain Scale Used: RITU Pain Rating (0-10): 2 = Mild Past Medical History: Past Medical History Reviewedyes Hyperlipidemia: Past Medical History, Active Hypertension (HTN): Past Medical History, Active Diabetes: Past Medical History, Active Electronic Signatures: Dottie Clark (ANN MARIE) (Signed 16-Jun-2022 09:17) Entered: Risk Screens, Pain, Arrival, ABCD, Travel History, Chart Review, Scores, Past Medical History Authored: Quick Triage, Risk Screens, Pain, Arrival, ABCD, Travel History, Chart Review, Scores, Past Medical History Last Updated: 16-Jun-2022 09:17 by Dottie Clark (ANN MARIE) [facility] BASIC METABOLIC PANELon 04- Anion gap [Moles/Vol] 17 mmol/L Normal 10 - 20 [facility] [place] Comment on above: Performed By: #### H GRETCHEN1E #### [address] [address] Calcium [Mass/Vol] 9.5 mg/dL Normal 8.6 - 10.3 [facility] [place] Comment on above: Performed By: #### H GRETCHEN1E #### [address] [address] Chloride [Moles/Vol] 96 mmol/L Low 98 - 107 [facility] [place] Comment on above: Performed By: #### H GRETCHEN1E #### [address] [address] Creatinine [Mass/Vol] 0.57 mg/dL Normal 0.50 - 1.05 [facility] [place] Comment on above: Performed By: #### H GRETCHEN1E #### [address] [address] eGFR FEMALE >90 Normal >90 [facility] [place] Comment on above: Result Comment: CALC ULATIONS OF ESTIMATED GFR ARE PERFORMED USING THE 2020 CKD-EPI STUDY REFIT EQUATION WITHOUT THE RACE VARIABLE FOR THE IDMS-TRACEABLE CREATININE METHODS. https://jasn.asnjournals.org/content/early//ASN.0389451229 Performed By: #### H GRETCHEN #### [address] [address] Glucose [Mass/Vol] 419 mg/dL High 74 - 99 [facility] [place] Comment on above: Performed By: #### H GRETCHEN1E #### [address] [address] HCO3 (Bld) [Moles/Vol] 25 mmol/L Normal 21 - 32 [facility] [place] Comment on above: Performed By: #### H GRETCHEN1E #### [address] [address] Potassium [Moles/Vol] 4.3 mmol/L Normal 3.5 - 5.3 [facility] [place] Comment on above: Performed By: #### H GRETCHEN1E #### [address] [address] Sodium [Moles/Vol] 134 mmol/L Low 136 - 145 [facility] [place] Comment on above: Performed By: #### H BA1E #### [address] [address] Urea nitrogen [Mass/Vol] 22 mg/dL Normal 6 - 23 [facility] [place] Comment on above: Performed By: #### H BA1E #### [address] [address] HEMOGLOBIN A1Con 06-13-2022 Glucose [Mass/Vol] 275 mg/dL Normal [facility] [place] Comment on above: Performed By: #### H BA1E #### [address] [address] HbA1c (Bld) [Mass fraction] 11.2 % Abnormal [facility] [place] Comment on above: Result Comment: Diag nosis of Diabetes-Adults Non-Diabetic: < or = 5.6% Increased risk for developing diabetes: 5.7-6.4% Diagnostic of diabetes: > or = 6.5% . Monitoring of Diabetes Age (y) Therapeutic Goal (%) Adults: >18 <7.0 Pediatrics: 13-18 <7.5 7-12 <8.0 0- 6 7.5-8.5 [employer]. Diabetes Care 33(S1), Mar 2009. Performed By: #### H BA1E #### [address] [address] Hemoglobin A1Con 06-13-2022 Glucose [Mass/Vol] 275 mg/dL [facility] [place] [address] [employer] Work Phone: HbA1c (Bld) [Mass fraction] 11.2 % Abnormal -Cardiolog [facility] [address] [employer] Work Phone: Comment on above: Diagnosis of Diabete s-Adults Non-Diabetic: < or = 5.6% Increased risk for developing diabetes: 5.7-6.4% Diagnostic of diabetes: > or = 6.5%. Monitoring of Diabetes Age (y) Therapeutic Goal (%) Adults: >18 <7.0 Pediatrics: 13-18 <7.5 7-12 <8.0 0- 6 7.5-8.5 [place]. Diabetes Care 33(S1), Mar 2009. LIPID PANEL (CORONARY RISK 2 )on 06-13-2022 Cholesterol [Mass/Vol] 170 mg/dL Normal 0 - 199 [facility] [place] Comment on above: Result Comment: . AGE DESIRABLE BORDERLINE HIGH HIGH 0-19 Y 0 - 169 170 - 199 >/= 200 20-24 Y 0 - 189 190 - 224 >/= 225 >24 Y 0 - 199 200 - 239 >/= 240 All ranges are based on fasting samples. Specific therapeutic targets will vary based on patient-specific cardiac risk. . Pediatric guidelines reference:Pediatrics 2011, 128(S5). Adult guidelines reference: NCEP ATPIII Guidelines, CIARA 2001, 258:2486-97 . Venipuncture immediately after or during the administration of Metamizole may lead to falsely low results. Testing should be performed immediately prior to Metamizole dosing. Performed By: #### L IPID #### [address] [address] Cholesterol in HDL [Mass/Vol] 39.0 mg/dL Abnormal [facility] [place] Comment on above: Result Comment: . AGE VERY LOW LOW NORMAL HIGH 0-19 Y < 35 < 40 40-45 ---- 20-24 Y ---- < 40 >45 ---- >24 Y ---- < 40 40-60 >60 . Performed By: #### L IPID #### [address] [address] Cholesterol.total /Cholesterol in HDL [Mass ratio] 4.4 {ratio} Normal [facility] [place] Comment on above: Result Comment: REF VALUES DESIRABLE < 3.4 HIGH RISK > 5.0 Performed By: #### L IPID #### [address] [address] LDL - Normal 0 - 99 [facility] [place] Comment on above: Result Comment: . NEAR BORD AGE DESIRABLE OPTIMAL HIGH HIGH VERY HIGH 0-19 Y 0 - 109 --- 110-129 >/= 130 ---- 20-24 Y 0 - 119 --- 120-159 >/= 160 ---- >24 Y 0 - 99 100-129 130-159 160-189 >/=190 . THE CALCULATION OF LDL AND VLDL ARE INACCURATE WHEN TRIGLYCERIDES ARE GREATER THAN 400 MG/DL OR WHEN THE PATIENT IS NON-FASTING. IF LDL MEASUREMENT IS NECESSARY CONTACT THE TESTING LABORATORY FOR AN ALTERNATIVE LDL ASSAY. Performed By: #### L IPID #### [address] [address] Triglyceride [Mass/Vol] 518 mg/dL High 0 - 149 [facility] [place] Comment on above: Result Comment: . AGE DESIRABLE BORDERLINE HIGH HIGH VERY HIGH 0 D-90 D 19 - 174 ---- ---- ---- 91 D- 9 Y 0 - 74 75 - 99 >/= 100 ---- 10-19 Y 0 - 89 90 - 129 >/= 130 ---- 20-24 Y 0 - 114 115 - 149 >/= 150 ---- >24 Y 0 - 149 150 - 199 200- 499 >/= 500 . Venipuncture immediately after or during the administration of Metamizole may lead to falsely low results. Testing should be performed immediately prior to Metamizole dosing. Performed By: #### L IPID #### [address] [address] VLDL SEE COMMENT Normal 0 - 40 [facility] [place] Comment on above: Result Comment: Unab le to calculate VLDL. Performed By: #### L IPID #### [address] [address] Laboratory - Chemistry and C hemistry - challengeon 06-13-2022 Anion gap [Moles/Vol] 17 mmol/L 10 - 20 [facility] [place] [address] [place] Work Phone: Calcium [Mass/Vol] 9.5 mg/dL 8.6 - 10.3 [facility] [place] [address] [place] Work Phone: Chloride [Moles/Vol] 96 mmol/L below low threshold 98 - 107 [facility] [place] [address] [place] Work Phone: CO2 [Moles/Vol] 25 mmol/L 21 - 32 -Cardio log [place] [address] [place] Work Phone: Creatinine [Mass/Vol] 0.57 mg/dL See Below [place] [address] [place] Work Phone: Comment on above: Reference Range: 0.5 0 - 1.05 Glucose [Mass/Vol] 419 mg/dL above high threshold 74 - 99 [place] [address] [place] Work Phone: Potassium [Moles/Vol] 4.3 mmol/L 3.5 - 5.[address] Work Phone: [phone] Sodium [Moles/Vol] 134 mmol/L below low threshold 136 - [address] Work Phone: Urea nitrogen [Mass/Vol] 22 mg/dL 6 - [address] Work Phone: Lipid Panelon 06-13-2022 Cholesterol [Mass/Vol] 170 mg/dL 0 - [address] Work Phone: Comment on above: . AGE DESIRABLE BORD HAVEN HIGH HIGH 0-19 Y 0 - 169 170 - 199 >/= 200 20-24 Y 0 - 189 190 - 224 >/= 225 >24 Y 0 - 199 200 - 239 >/= 240 All ranges are based on fasting samples. Specific therapeutic targets will vary based on patient-specific cardiac risk.. Pediatric guidelines reference:Pediatrics 2011, 128(S5). Adult guidelines reference: NCEP ATPIII Guidelines, CIARA 2001, 258:2486-97. Venipuncture immediately after or during the administration of Metamizole may lead to falsely low results. Testing should be performed immediately prior to Metamizole dosing. Cholesterol in HDL [Mass/Vol] 39.0 mg/dL Abnormal [place] [address] [place] Work Phone: Comment on above: . AGE VERY LOW LOW N ORMAL HIGH 0-19 Y < 35 < 40 40-45 ---- 20- 24 Y ---- < 40 >45 ---- >24 Y ---- < 40 40-60 >60. Cholesterol in LDL [Mass/Vol] - 0 - 99 [employer] Work Phone: Comment on above: . NEAR BORD AGE SERGEI RABLE OPTIMAL HIGH HIGH VERY HIGH 0-19 Y 0 - 109 --- 110-129 >/= 130 ---- 20-24 Y 0 - 119 --- 120-159 >/= 160 ---- >24 Y 0 - 99 100-129 130-159 160-189 >/=190.THE CALCULATION OF LDL AND VLDL ARE INACCURATEWHEN TRIGLYCERIDES ARE GREATER THAN 400 MG/DLOR WHEN THE PATIENT IS NON-FASTING. IF LDLMEASUREMENT IS NECESSARY CONTACT THE TESTINGLABORATORY FOR AN ALTERNATIVE LDL ASSAY. Cholesterol.total /Cholesterol in HDL [Mass ratio] 4.4 {ratio} [employer] Work Phone: Comment on above: REF VALUESDESIRABLE < 3.4HIGH RISK > 5.0 Triglyceride [Mass/Vol] 518 mg/dL above high threshold 0 - 149 [employer] Work Phone: Comment on above: . AGE DESIRABLE BORD HAVEN HIGH HIGH VERY HIGH 0 D-90 D 19 - 174 ---- ---- ----91 D- 9 Y 0 - 74 75 - 99 >/= 100 ---- 10-19 Y 0 - 89 90 - 129 >/= 130 ---- 20-24 Y 0 - 114 115 - 149 >/= 150 ---- >24 Y 0 - 149 150 - 199 200- 499 >/= 500. Venipuncture immediately after or during the administration of Metamizole may lead to falsely low results. Testing should be performed immediately prior to Metamizole dosing. Lipid Panel SEE COMMENT 0 - 40 [employer] Work Phone: Comment on above: Unable to calculate VLDL. No Panel Informationon 06-13 >90 >90 [employer] Work Phone: Comment on above: CALCULATIONS OF PENELOPE MATED GFR ARE PERFORMED USING THE 2020 CKD-EPI STUDY REFIT EQUATION WITHOUT THE RACE VARIABLE FOR THE IDMS-TRACEABLE CREATININE METHODS.https://jasn.asnjournals.org/content//ASN.20 [email or web address] Office Visiton 03-17-2022 Follow-up visit Diagnoses/Problems HTN (hypertension) (401.9) (I10) BMI 36.0-36.9,adult (V85.36) (Z68.36) Diabetes (250.00) (E11.9) Class 2 severe obesity due to excess calories with serious comorbidity and body mass index (BMI) of 36.0 to 36.9 in adult (278.01,V85.36) (E66.01,Z68.36) Hyperlipidemia LDL goal <100 (272.4) (E78.5) GERD (gastroesophageal reflux disease) (530.81) (K21.9) Orders Diabetes Changed: From glipiZIDE XL 10 MG Oral Tablet Extended Release 24 Hour Take 1 tablet daily To glipiZIDE XL 10 MG Oral Tablet Extended Release 24 Hour Take 1 tablet twice a day Renew: metFORMIN HCl ER 500 MG Oral Tablet Extended Release 24 Hour; TAKE TWO TABLETS BY MOUTH TWO TIMES A DAY Renew: Victoza 18 MG/3ML Subcutaneous Solution Pen-injector; INJECT 1.8MG UNDER THE SKIN EVERY DAY GERD (gastroesophageal reflux disease) Renew: Esomeprazole Magnesium 20 MG Oral Capsule Delayed Release; TAKE 1 CAPSULE Daily HTN (hypertension) Renew: amLODIPine Besylate 5 MG Oral Tablet; Take 1 tablet daily Renew: Losartan Potassium 100 MG Oral Tablet; TAKE 1 TABLET BY MOUTH EVERY DAY Hyperlipidemia LDL goal <100 Start: Pravastatin Sodium 40 MG Oral Tablet; Take 1 tablet daily Patient Discussion/Summary PT INSTRUCTIONS #1. As we discussed your blood pressure was pretty high today. Please remember to check your blood pressure at home with your personal monitor a few times a week and make sure you have had the opportunity to sit and relax for 20 minutes. Please give me an update after a couple of weeks and if necessary we will increase the dose of your amlodipine. Please also remember to check your blood pressure at home several times prior to your next visit and bring your monitor with you. #2. Unfortunately your hemoglobin A1c was high. I have increased her glipizide from once daily now up to twice daily and please check your sugars at home prior to your breakfast and your evening meal. Please give me weekly updates because we can make adjustments until we get it right. Hopefully when you come back in 3 months your hemoglobin A1c will be excellent. #3. I sent a new prescription for the pravastatin 40 mg daily and we will check your cholesterol just prior to your next visit Please schedule a 3-month follow-up visit and she will need a fasting BMP with hemoglobin A1c and diagnosis diabetes mellitus type 2 and also a fasting lipid profile with change in cholesterol medication Chief Complaint Pt is here today for a 4 month check up, Review labs. States Atorvastatin made her cough, has been taking pravastatin instead. This note was generated by using [employer] software. It may contain errors in wording, punctuate, or spelling. She is here today for her 4-month checkup. When she arrived her blood pressure was a bit generous. She explains she had a rather challenging morning with her pet that had surgery. We rechecked it after she sat for a while and unfortunately it was still elevated. In the past her blood pressure has been excellent so we decided to have her do some monitoring at home and she will call with an update after the next several weeks. If necessary we would increase the dose of the amlodipine. We also conducted a full review of systems. Her lab work came back and unfortunately her hemoglobin A1c was high at 10.4. We briefly mentioned the challenges of the holiday season. We decided to increase the glipizide to twice daily and again she will give me an update on her readings. We also discussed the atorvastatin and she states that she developed a cough with the medication. She states she switch back to her pravastatin and her cough went away. We will give her a refill on a higher dose of pravastatin and we will check her cholesterol when she comes back in 3 months. Review of SystemsDenies fatigue. Denies shortness of breath, coughing, wheezing Denies chest pain, palpitations, leg edema Denies nausea, vomiting, diarrhea, occ heartburn. Denies abdominal pain, or black or bloody stools Denies significant joint pain . No back pain Denies feelings of significant anxiety or depression Active Problems Alternating constipation and diarrhea (787.99) (R19.8) Arthritis of knee, left (716.96) (M17.12) Carotid disease, bilateral (447.9) (I77.9) Class 2 severe obesity with body mass index (BMI) of 35 to 39.9 with serious comorbidity (278.01) (E66.01) Complex tear of medial meniscus of left knee as current injury, subsequent encounter (V58.89) (S83.232D) Diabetes (250.00) (E11.9) Encounter for screening mammogram for malignant neoplasm of breast (V76.12) (Z12.31) MARCH 2019 GERD (gastroesophageal reflux disease) (530.81) (K21.9) Hepatic steatosis (571.8) (K76.0) History of claustrophobia (V11.8) (Z86.59) HTN (hypertension) (401.9) (I10) Hyperlipidemia LDL goal <100 (272.4) (E78.5) Medial epic (more content not included)... Normal Fashion To Figure Tobacco Screening.on 023 Tobacco use status HS b) No [facility] Work Phone: BASIC METABOLIC PANELon Anion gap [Moles/Vol] 15 mmol/L Normal 10 - 20 [facility] [place] Comment on above: Performed By: #### B MP #### [address] [address] Calcium [Mass/Vol] 9.7 mg/dL Normal 8.6 - 10.3 [facility] [place] Comment on above: Performed By: #### B MP #### [address] [address] Chloride [Moles/Vol] 101 mmol/L Normal 98 - 107 [facility] [place] Comment on above: Performed By: #### B MP #### [address] [address] Creatinine [Mass/Vol] 0.55 mg/dL Normal 0.50 - 1.05 [facility] [place] Comment on above: Performed By: #### B MP #### [address] [address] eGFR FEMALE >90 Normal >90 [facility] [place] Comment on above: Result Comment: CALC ULATIONS OF ESTIMATED GFR ARE PERFORMED USING THE 2020 CKD-EPI STUDY REFIT EQUATION WITHOUT THE RACE VARIABLE FOR THE IDMS-TRACEABLE CREATININE METHODS. https://jasn.asnjournals.org/content/early//ASN.7072493272 Performed By: #### B MP #### [address] [address] Glucose [Mass/Vol] 252 mg/dL High 74 - 99 [facility] [place] Comment on above: Performed By: #### B MP #### [address] [address] HCO3 (Bld) [Moles/Vol] 26 mmol/L Normal 21 - 32 [facility] [place] Comment on above: Performed By: #### B MP #### [address] [address] Potassium [Moles/Vol] 4.0 mmol/L Normal 3.5 - 5.3 [facility] [place] Comment on above: Performed By: #### B MP #### [address] [address] Sodium [Moles/Vol] 138 mmol/L Normal 136 - 145 [facility], [place] Comment on above: Performed By: #### B MP #### [address] [address] Urea nitrogen [Mass/Vol] 21 mg/dL Normal 6 - 23 [facility], [place] Comment on above: Performed By: #### B MP #### [address] [address] HEMOGLOBIN A1Con 03-10-2022 Glucose [Mass/Vol] 252 mg/dL Normal [facility], [place] Comment on above: Performed By: #### H BA1E #### [address] [address] HbA1c (Bld) [Mass fraction] 10.4 % Abnormal [facility], [place] Comment on above: Result Comment: Diag nosis of Diabetes-Adults Non-Diabetic: < or = 5.6% Increased risk for developing diabetes: 5.7-6.4% Diagnostic of diabetes: > or = 6.5% . Monitoring of Diabetes Age (y) Therapeutic Goal (%) Adults: >18 <7.0 Pediatrics: 13-18 <7.5 7-12 <8.0 0- 6 7.5-8.5 [place] [employer]. Diabetes Care 33(S1), Mar 2009. Performed By: #### H BA1E #### [address] [address] Hemoglobin A1Con 03-10-2022 Glucose [Mass/Vol] 252 mg/dL above high threshold 74 - 99 [employer] Work Phone: HbA1c (Bld) [Mass fraction] 10.4 % Abnormal [employer] Phone: Comment on above: Diagnosis of Diabete s-Adults Non-Diabetic: < or = 5.6% Increased risk for developing diabetes: 5.7-6.4% Diagnostic of diabetes: > or = 6.5%. Monitoring of Diabetes Age (y) Therapeutic Goal (%) Adults: >18 <7.0 Pediatrics: 13-18 <7.5 7-12 <8.0 0- 6 7.5-8.5 [place]. Diabetes Care 33(S1), Mar 2009. Laboratory - Chemistry and C hemistry - challengeon 03-10-2022 Anion gap [Moles/Vol] 15 mmol/L 10 - 20 [facility] Phone: Calcium [Mass/Vol] 9.7 mg/dL 8.6 - 10.3 [employer] Phone: Chloride [Moles/Vol] 101 mmol/L 98 - 107 [facility] Phone: CO2 [Moles/Vol] 26 mmol/L 21 - 32 [facility] Phone: Creatinine [Mass/Vol] 0.55 mg/dL See Below [facility] Phone: Comment on above: Reference Range: 0.5 0 - 1.05 Potassium [Moles/Vol] 4.0 mmol/L 3.5 - 5.3 [facility] Work Phone: Sodium [Moles/Vol] 138 mmol/L 136 - 145 [facility] Phone: Urea nitrogen [Mass/Vol] 21 mg/dL 6 - 23 [facility] Phone: No Panel Informationon 03-10 >90 >90 [facility] Phone: Comment on above: CALCULATIONS OF PENELOPE MATED GFR ARE PERFORMED USING THE 2020 CKD-EPI STUDY REFIT EQUATION WITHOUT THE RACE VARIABLE FOR THE IDMS-TRACEABLE CREATININE METHODS.https://jasn.asnjournals.org/content///ASN.20 93529354 Office Visiton 11-11-2021 Follow-up visit Diagnoses/Problems HTN (hypertension) (401.9) (I10) GERD (gastroesophageal reflux disease) (530.81) (K21.9) Diabetes (250.00) (E11.9) Vitamin D deficiency (268.9) (E55.9) Hyperlipidemia LDL goal <100 (272.4) (E78.5) Orders Diabetes Start: glipiZIDE ER 5 MG Oral Tablet Extended Release 24 Hour; TAKE 1 TABLET DAILY Start: glipiZIDE XL 10 MG Oral Tablet Extended Release 24 Hour; Take 1 tablet daily Renew: metFORMIN HCl ER 500 MG Oral Tablet Extended Release 24 Hour; TAKE TWO TABLETS BY MOUTH TWO TIMES A DAY GERD (gastroesophageal reflux disease) Renew: Esomeprazole Magnesium 20 MG Oral Capsule Delayed Release; TAKE 1 CAPSULE Daily HTN (hypertension) Renew: amLODIPine Besylate 5 MG Oral Tablet; Take 1 tablet daily Renew: Losartan Potassium 100 MG Oral Tablet; TAKE 1 TABLET BY MOUTH EVERY DAY Hyperlipidemia LDL goal <100 Renew: Atorvastatin Calcium 40 MG Oral Tablet; Take 1 tablet daily Patient Discussion/Summary Please schedule a 4-month follow-up visit with 4-month lab to include fasting BMP with hemoglobin A1c and diagnosis of diabetes mellitus type 2 Chief Complaint Pt is here today for a 4 month check up, review labs. This note was generated by using [employer] software. It may contain errors in wording, punctuate, or spelling. She is here today for her 4-month checkup. Overall she is looking well and reports feeling well. Unfortunately her hemoglobin A1c came back up again at 8.4. She states sometimes she struggles with staying on the diet regularly. We did decide to increase the dose of her glipizide and she will continue to monitor her sugars and contact us with any problems. We also went over the results of the rest of her lab and overall I am pleased with her numbers. Her vitamin D level is in the 70 range so we talked about reducing her vitamin D intake by one half. She states she has been taking her vitamin D most of the time twice a day so she will go back to once a day which should do the trick. Her cholesterol was very good with the exception of high triglycerides and we discussed how lowering sugar can also help improve the triglycerides significantly. We are giving her refills in all of her medications including her ease omeprazole for acid reflux. She states she has tried to eliminate a dose and she gets pretty bad heartburn. I have recommended that she have this season's flu vaccine but she politely declines. If she changes her mind she knows she can come back. We decided that we will see her back in approximately 4 months and certainly sooner if any problems. Review of SystemsDenies fatigue. Denies shortness of breath, coughing, wheezing Denies chest pain, palpitations, leg edema Denies nausea, vomiting, diarrhea, heartburn, abdominal pain, or black or bloody stools Denies significant joint pain . No back pain Denies feelings of significant anxiety or depression Active Problems Alternating constipation and diarrhea (787.99) (R19.8) Arthritis of knee, left (716.96) (M17.12) BMI 35.0-35.9,adult (V85.35) (Z68.35) Carotid disease, bilateral (447.9) (I77.9) Class 2 severe obesity with body mass index (BMI) of 35 to 39.9 with serious comorbidity (278.01) (E66.01) Complex tear of medial meniscus of left knee as current injury, subsequent encounter (V58.89) (S83.232D) Diabetes (250.00) (E11.9) Encounter for screening mammogram for malignant neoplasm of breast (V76.12) (Z12.31) MARCH 2019 GERD (gastroesophageal reflux disease) (530.81) (K21.9) Hepatic steatosis (571.8) (K76.0) History of claustrophobia (V11.8) (Z86.59) HTN (hypertension) (401.9) (I10) Hyperlipidemia LDL goal <100 (272.4) (E78.5) Medial epicondylitis of right elbow (726.31) (M77.01) Nocturnal hypoxemia (327.24) (G47.34) Other specified inflammation of vagina and vulva (616.89) (N76.89) Screening for colon cancer (V76.51) (Z12.11) Screening for heart disease (V81.2) (Z13.6) Taking medication for chronic disease (799.9) (R69) TIA (transient ischemic attack) (435.9) (G45.9) Vitamin D deficiency (268.9) (E55.9) Past Medical History History of diabetes mellitus (V12.29) (Z86.39) History of hyperlipidemia (V12.29) (Z86.39) History of hypertension (V12.59) (Z86.79) Surgical History History of section 8 c-sections History of Cholecystectomy History of Complete colonoscopy History of Knee arthroscopy Left Social History Daily caffeine consumption, 2-3 servings a day Denies alcohol consumption (V49.89) (Z78.9) Does not use illicit drugs (V49.89) (Z78.9) Does not use tobacco (V49.89) (Z78.9) Living will in chart Allergies codeine Recorded By: Jewell Mota; 10/04/2019 2:18:00 PM Lisinopril TABS Recorded By: Jewell Mota; 10/04/2019 2:18:00 PM Current Meds Medication NameInstruction amLODIPine Besylate 5 MG Oral TabletTake 1 tablet daily Aspirin Low Dose 81 MG Oral Tablet Delayed ReleaseTAKE 1 TABLET BY MOUTH EVERY DAY Atorvastatin Calcium 40 MG Oral TabletTake 1 table (more content not included)... Normal [employer] 11-07-2021 ALT [Catalytic activity/Vol] 24 U/L Normal 7 - 45 [facility], [place] Comment on above: Result Comment: Alice ents treated with Sulfasalazine may generate falsely decreased results for ALT. Performed By: #### A LT #### [address] [address] ALT - Alanine Aminotransfera se, Serumon 11-07-2021 ALT With P-5'-P [Catalytic activity/Vol] 24 U/L 7 - 45 [facility] Work Phone: Comment on above: Patients treated wit h Sulfasalazine may generate falsely decreased results for ALT. Darek 11-07-2021 AST [Catalytic activity/Vol] 17 U/L Normal 9 - 39 [facility], [place] Comment on above: Performed By: #### A ST #### [address] [address] BASIC METABOLIC PANELon Anion gap [Moles/Vol] 13 mmol/L Normal 10 - 20 [facility] [place] Comment on above: Performed By: #### B MP #### [address] [address] Calcium [Mass/Vol] 9.5 mg/dL Normal 8.6 - 10.3 [facility] [place] Comment on above: Performed By: #### B MP #### [address] [address] Chloride [Moles/Vol] 100 mmol/L Normal 98 - 107 [facility] [place] Comment on above: Performed By: #### B MP #### [address] [address] Creatinine [Mass/Vol] 0.54 mg/dL Normal 0.50 - 1.05 [facility] [place] Comment on above: Performed By: #### B MP #### [address] [address] eGFR FEMALE >90 Normal >90 [facility] [place] Comment on above: Result Comment: CALC ULATIONS OF ESTIMATED GFR ARE PERFORMED USING THE 2020 CKD-EPI STUDY REFIT EQUATION WITHOUT THE RACE VARIABLE FOR THE IDMS-TRACEABLE CREATININE METHODS. https://jasn.asnjournals.org/content//ASN.1906514861 Performed By: #### B MP #### [address] [address] Glucose [Mass/Vol] 178 mg/dL High 74 - 99 [facility] [place] Comment on above: Performed By: #### B MP #### [address] [address] HCO3 (Bld) [Moles/Vol] 28 mmol/L Normal 21 - 32 [facility] [place] Comment on above: Performed By: #### B MP #### [address] [address] Potassium [Moles/Vol] 4.1 mmol/L Normal 3.5 - 5.3 [facility] [place] Comment on above: Performed By: #### B MP #### [address] [address] Sodium [Moles/Vol] 137 mmol/L Normal 136 - 145 [facility] [place] Comment on above: Performed By: #### B MP #### [address] [address] Urea nitrogen [Mass/Vol] 21 mg/dL Normal 6 - 23 [facility] [place] Comment on above: Performed By: #### B MP #### [address] [address] HEMOGLOBIN A1Con 11-07-2021 Glucose [Mass/Vol] 194 mg/dL Normal [facility] [place] Comment on above: Performed By: #### H BA1E #### [address] [address] HbA1c (Bld) [Mass fraction] 8.4 % Abnormal [facility] [place] Comment on above: Result Comment: Diag nosis of Diabetes-Adults Non-Diabetic: < or = 5.6% Increased risk for developing diabetes: 5.7-6.4% Diagnostic of diabetes: > or = 6.5% . Monitoring of Diabetes Age (y) Therapeutic Goal (%) Adults: >18 <7.0 Pediatrics: 13-18 <7.5 7-12 <8.0 0- 6 7.5-8.5 [place] [employer]. Diabetes Care 33(S1), Mar 2009. Performed By: #### H BA1E #### [facility] [address] [id number] Hemoglobin A1Con 11-07-2021 Glucose [Mass/Vol] 194 mg/dL [facility] Phone: HbA1c (Bld) [Mass fraction] 8.4 % Abnormal [facility] Phone: Comment on above: Diagnosis of Diabete s-Adults Non-Diabetic: < or = 5.6% Increased risk for developing diabetes: 5.7-6.4% Diagnostic of diabetes: > or = 6.5%. Monitoring of Diabetes Age (y) Therapeutic Goal (%) Adults: >18 <7.0 Pediatrics: 13-18 <7.5 7-12 <8.0 0- 6 7.5-8.5 [place] [employer]. Diabetes Care 33(S1), Mar 2009. LIPID PANEL (CORONARY RISK 2 )on 11-07-2021 Cholesterol [Mass/Vol] 128 mg/dL Normal 0 - 199 [facility] [place] Comment on above: Result Comment: . AGE DESIRABLE BORDERLINE HIGH HIGH 0-19 Y 0 - 169 170 - 199 >/= 200 20-24 Y 0 - 189 190 - 224 >/= 225 >24 Y 0 - 199 200 - 239 >/= 240 All ranges are based on fasting samples. Specific therapeutic targets will vary based on patient-specific cardiac risk. . Pediatric guidelines reference:Pediatrics 2011, 128(S5). Adult guidelines reference: NCEP ATPIII Guidelines, CIARA 2001, 258:2486-97 . Venipuncture immediately after or during the administration of Metamizole may lead to falsely low results. Testing should be performed immediately prior to Metamizole dosing. Performed By: #### L IPID #### [address] [address] Cholesterol in HDL [Mass/Vol] 47.0 mg/dL Normal [facility] [place] Comment on above: Result Comment: . AGE VERY LOW LOW NORMAL HIGH 0-19 Y < 35 < 40 40-45 ---- 20-24 Y ---- < 40 >45 ---- >24 Y ---- < 40 40-60 >60 . Performed By: #### L IPID #### [address] [address] Cholesterol in LDL [Mass/Vol] 47 mg/dL Normal 0 - 99 [facility] [place] Comment on above: Result Comment: . NEAR BORD AGE DESIRABLE OPTIMAL HIGH HIGH VERY HIGH 0-19 Y 0 - 109 --- 110-129 >/= 130 ---- 20-24 Y 0 - 119 --- 120-159 >/= 160 ---- >24 Y 0 - 99 100-129 130-159 160-189 >/=190 . Performed By: #### L IPID #### [address] [address] Cholesterol in VLDL [Mass/Vol] 34 mg/dL Normal 0 - 40 [facility] [place] Comment on above: Performed By: #### L IPID #### [address] [address] Cholesterol.total /Cholesterol in HDL [Mass ratio] 2.7 {ratio} Normal [facility] [place] Comment on above: Result Comment: REF VALUES DESIRABLE < 3.4 HIGH RISK > 5.0 Performed By: #### L IPID #### [address] [address] Triglyceride [Mass/Vol] 170 mg/dL High 0 - 149 [facility] [place] Comment on above: Result Comment: . AGE DESIRABLE BORDERLINE HIGH HIGH VERY HIGH 0 D-90 D 19 - 174 ---- ---- ---- 91 D- 9 Y 0 - 74 75 - 99 >/= 100 ---- 10-19 Y 0 - 89 90 - 129 >/= 130 ---- 20-24 Y 0 - 114 115 - 149 >/= 150 ---- >24 Y 0 - 149 150 - 199 200- 499 >/= 500 . Venipuncture immediately after or during the administration of Metamizole may lead to falsely low results. Testing should be performed immediately prior to Metamizole dosing. Performed By: #### L IPID #### [facility] [address] [id number] Laboratory - Chemistry and C hemistry - challengeon 11-07-2021 Anion gap [Moles/Vol] 13 mmol/L 10 - 20 [facility] [employer] Work Phone: AST With P-5'-P [Catalytic activity/Vol] 17 U/L 9 - 39 [facility] [employer] Phone: Calcium [Mass/Vol] 9.5 mg/dL 8.6 - 10.3 [facility] [employer] Work Phone: Chloride [Moles/Vol] 100 mmol/L 98 - 107 [facility] [employer] Work Phone: CO2 [Moles/Vol] 28 mmol/L 21 - 32 [facility] [employer] Work Phone: Creatinine [Mass/Vol] 0.54 mg/dL See Below [facility] [employer] Phone: Comment on above: Reference Range: 0.5 0 - 1.05 Glucose [Mass/Vol] 178 mg/dL above high threshold 74 - 99 [facility] [employer] Work Phone: Potassium [Moles/Vol] 4.1 mmol/L 3.5 - 5.3 [facility] [employer] Work Phone: Sodium [Moles/Vol] 137 mmol/L 136 - 145 [facility] [employer] Work Phone: Urea nitrogen [Mass/Vol] 21 mg/dL 6 - 23 [facility] [employer] Work Phone: Lipid Panelon 11-07-2021 Cholesterol [Mass/Vol] 128 mg/dL 0 - 199 [facility] Phone: Comment on above: . AGE DESIRABLE BORD [place] HIGH HIGH 0-19 Y 0 - 169 170 - 199 >/= 200 20-24 Y 0 - 189 190 - 224 >/= 225 >24 Y 0 - 199 200 - 239 >/= 240 All ranges are based on fasting samples. Specific therapeutic targets will vary based on patient-specific cardiac risk.. Pediatric guidelines reference:Pediatrics 2011, 128(S5). Adult guidelines reference: NCEP ATPIII Guidelines, CIARA 2001, 258:2486-97. Venipuncture immediately after or during the administration of Metamizole may lead to falsely low results. Testing should be performed immediately prior to Metamizole dosing. Cholesterol in HDL [Mass/Vol] 47.0 mg/dL [facility] Phone: Comment on above: . AGE VERY LOW LOW N ORMAL HIGH 0-19 Y < 35 < 40 40-45 ---- 20- 24 Y ---- < 40 >45 ---- >24 Y ---- < 40 40-60 >60. Cholesterol in LDL [Mass/Vol] 47 mg/dL 0 - 99 [facility] Phone: Comment on above: . NEAR BORD AGE SERGEI RABLE OPTIMAL HIGH HIGH VERY HIGH 0-19 Y 0 - 109 --- 110-129 >/= 130 ---- 20-24 Y 0 - 119 --- 120-159 >/= 160 ---- >24 Y 0 - 99 100-129 130-159 160-189 >/=190. Cholesterol.total /Cholesterol in HDL [Mass ratio] 2.7 {ratio} [facility] Phone: Comment on above: REF VALUESDESIRABLE < 3.4HIGH RISK > 5.0 Triglyceride [Mass/Vol] 170 mg/dL above high threshold 0 - 149 [facility] Phone: Comment on above: . AGE DESIRABLE [place] HIGH HIGH VERY HIGH 0 D-90 D 19 - 174 ---- ---- ----91 D- 9 Y 0 - 74 75 - 99 >/= 100 ---- 10-19 Y 0 - 89 90 - 129 >/= 130 ---- 20-24 Y 0 - 114 115 - 149 >/= 150 ---- >24 Y 0 - 149 150 - 199 200- 499 >/= 500. Venipuncture immediately after or during the administration of Metamizole may lead to falsely low results. Testing should be performed immediately prior to Metamizole dosing. Lipid Panel 34 mg/dL 0 - 40 [facility] Phone: No Panel Informationon 11-07 >90 >90 [facility] Phone: Comment on above: CALCULATIONS OF PENLEOPE MATED GFR ARE PERFORMED USING THE 2020 CKD-EPI STUDY REFIT EQUATION WITHOUT THE RACE VARIABLE FOR THE IDMS-TRACEABLE CREATININE METHODS.https://jasn.asnjournals.org/content//ASN.[email or web address] 06678117 VITAMIN D, 25-HYDROXYon 09-0 VITAMIN D, 25-HYDROXY 73 ng/mL Normal [facility] [place] Comment on above: Result Comment: . DEFICIENCY: < 20 NG/ML INSUFFICIENCY: 20-29 NG/ML SUFFICIENCY: 30-100 NG/ML THIS ASSAY ACCURATELY QUANTIFIES THE SUM OF VITAMIN D3, 25-HYDROXY AND VIT D2,25-HYDROXY. Performed By: #### V TDOH #### [address] [address] Vitamin D 25-Hydroxyon 11-07 25-hydroxyvitamin D3 [Mass/Vol] 73 ng/mL [facility] Phone: Comment on above: .DEFICIENCY: < 20 NG /MLINSUFFICIENCY: 20-29 NG/MLSUFFICIENCY: 30-100 NG/MLTHIS ASSAY ACCURATELY QUANTIFIES THE SUM OFVITAMIN D3, 25-HYDROXY AND VIT D2,25-HYDROXY. Tobacco Screening.on 022 Tobacco use status [facility] b) No [facility] Phone: [facility] Carotid Artery Dupl ex Ultrasoundon 06-28-2021 US.doppler Carotid arteries Please click on the link to view the study images Normal [facility] Phone: US.doppler Carotid arteries [facility] Phone: MRI Brain without Contraston 06-27-2021 MR Brain WO contrast Normal [facility] Phone: Tobacco Screening.on Fall risk assessment b) One or more falls in the last year [facility] Phone: Tobacco use status [facility] b) No [facility] Phone: Tobacco Screening.on Tobacco use status [facility] b) No [facility] Phone: Hemoglobin A1Con 05-22-2021 Glucose [Mass/Vol] 171 mg/dL [facility] Phone: HbA1c (Bld) [Mass fraction] 7.6 % Abnormal [facility] Phone: Comment on above: Diagnosis of Diabete s-Adults Non-Diabetic: < or = 5.6% Increased risk for developing diabetes: 5.7-6.4% Diagnostic of diabetes: > or = 6.5%. Monitoring of Diabetes Age (y) Therapeutic Goal (%) Adults: >18 <7.0 Pediatrics: 13-18 <7.5 7-12 <8.0 0- 6 7.5-8.5 [place] [employer]. Diabetes Care 33(S1), Mar 2009. Laboratory - Chemistry and C hemistry - challengeon 05-22-2021 Anion gap [Moles/Vol] 13 mmol/L 10 - 20 [facility] Phone: Calcium [Mass/Vol] 9.1 mg/dL 8.6 - 10.3 [employer] Work Phone: Chloride [Moles/Vol] 104 mmol/L 98 - 107 [facility] Phone: CO2 [Moles/Vol] 26 mmol/L 21 - [address] [facility] Phone: Creatinine [Mass/Vol] 0.56 mg/dL See Below [facility] Phone: Comment on above: Reference Range: 0.5 0 - 1.05 Glucose [Mass/Vol] 159 mg/dL above high threshold 74 - 99 [facility] Phone: Potassium [Moles/Vol] 4.0 mmol/L 3.5 - 5.3 [facility] Phone: Sodium [Moles/Vol] 139 mmol/L 136 - 145 [facility] Phone: Urea nitrogen [Mass/Vol] 23 mg/dL 6 - 23 [facility] Phone: Lipid Panelon 05-22-2021 Cholesterol [Mass/Vol] 138 mg/dL 0 - 199 [facility] Phone: Comment on above: . AGE DESIRABLE BORD [place] HIGH HIGH 0-19 Y 0 - 169 170 - 199 >/= 200 20-24 Y 0 - 189 190 - 224 >/= 225 >24 Y 0 - 199 200 - 239 >/= 240 All ranges are based on fasting samples. Specific therapeutic targets will vary based on patient-specific cardiac risk.. Pediatric guidelines reference:Pediatrics 2011, 128(S5). Adult guidelines reference: NCEP ATPIII Guidelines, CIARA 2001, 258:2486-97. Venipuncture immediately after or during the administration of Metamizole may lead to falsely low results. Testing should be performed immediately prior to Metamizole dosing. Cholesterol in HDL [Mass/Vol] 38.0 mg/dL Abnormal [facility] Phone: Comment on above: . AGE VERY LOW LOW N ORMAL HIGH 0-19 Y < 35 < 40 40-45 ---- 20- 24 Y ---- < 40 >45 ---- >24 Y ---- < 40 40-60 >60. Cholesterol in LDL [Mass/Vol] 60 mg/dL 0 - 99 [facility] Phone: Comment on above: . NEAR BORD AGE SERGEI RABLE OPTIMAL HIGH HIGH VERY HIGH 0-19 Y 0 - 109 --- 110-129 >/= 130 ---- 20-24 Y 0 - 119 --- 120-159 >/= 160 ---- >24 Y 0 - 99 100-129 130-159 160-189 >/=190. Cholesterol non HDL [Mass/Vol] 100 mg/dL [facility] Phone: Comment on above: AGE DESIRABLE BORDER LINE HIGH HIGH VERY HIGH 0-19 Y 0 - 119 120 - 144 >/= 145 >/= 160 20-24 Y 0 - 149 150 - 189 >/= 190 ---- >24 Y 30 MG/DL ABOVE LDL CHOLESTEROL GOAL. Cholesterol.total /Cholesterol in HDL [Mass ratio] 3.6 {ratio} [facility] Phone: Comment on above: REF VALUESDESIRABLE < 3.4HIGH RISK > 5.0 Triglyceride [Mass/Vol] 201 mg/dL above high threshold 0 - 149 [facility] Phone: Comment on above: . AGE DESIRABLE [place] HIGH HIGH VERY HIGH 0 D-90 D 19 - 174 ---- ---- ----91 D- 9 Y 0 - 74 75 - 99 >/= 100 ---- 10-19 Y 0 - 89 90 - 129 >/= 130 ---- 20-24 Y 0 - 114 115 - 149 >/= 150 ---- >24 Y 0 - 149 150 - 199 200- 499 >/= 500. Venipuncture immediately after or during the administration of Metamizole may lead to falsely low results. Testing should be performed immediately prior to Metamizole dosing. Lipid Panel 40 mg/dL 0 - 40 [facility] [employer] Work Phone: No Panel Informationon 05-22 >90 >90 [facility] [employer] Work Phone: Comment on above: CALCULATIONS OF PENELOPE MATED GFR ARE PERFORMED USING THE 2020 CKD-EPI STUDY REFIT EQUATION WITHOUT THE RACE VARIABLE FOR THE IDMS-TRACEABLE CREATININE METHODS.https://jasn.asnjournals.org/content//ASN.20 11371032 Vitamin D 25-Hydroxyon 05-22 25-hydroxyvitamin D3 [Mass/Vol] 74 ng/mL [facility] [employer] Work Phone: Comment on above: .DEFICIENCY: < 20 NG /MLINSUFFICIENCY: 20-29 NG/MLSUFFICIENCY: 30-100 NG/MLTHIS ASSAY ACCURATELY QUANTIFIES THE SUM OFVITAMIN D3, 25-HYDROXY AND VIT D2,25-HYDROXY. Cult, Urineon 03-04-2021 Bacteria identified Cx Nom (U) [place] [address] DO Work Phone: IO UA (automated w/o microsc opy)on 03-04-2021 Protein (U) [Mass/Vol] Negative [place] [address] DO Work Phone: IO UA (automated w/o microscopy) Negative [place] [address] DO Work Phone: IO UA (automated w/o microscopy) Normal (0.2-1.0 mg/dl) [place] [address] DO Work Phone: IO UA (automated w/o microscopy) 5.5 1 [address] [place] [address] DO Work Phone: IO UA (automated w/o microscopy) 1.025 1 [address] [place] [address] DO Work Phone: IO UA (automated w/o microscopy) Trace [facility] SunsetNeto [place] [address] DO Work Phone: IO UA (automated w/o microscopy) 500 mg/dl [facility] Eliana DO Work Phone: IO UA (automated w/o microscopy) Clear [facility] Sunset[facility] [place] [address] DO Work Phone: IO UA (automated w/o microscopy) Yellow [facility] Sunset[facility] [place] [address] DO Work Phone: Laboratory - Urinalysison Yeast LM Ql (Urine sed) ABSENT [facility] Sunset[facility] [place] [address] DO Work Phone: No Panel Informationon 03-04 SEE BELOW [facility] SunsetNeto [place] [address] DO Work Phone: Comment on above: Lactobacilli are dec reased, but significant abnormal microbiota are absent, which results in a Sis score interpretation of intermediate. ABSENT [facility] SunsetNeto [place] [address] DO Work Phone: 4 1 Abnormal [facility] Sunset[facility] [place] [address] DO Work Phone: Comment on above: Interpretation of th e Sis Score0-3.....Normal vaginal microbiota4-6.....Intermediate results7-10....Bacterial vaginosis Tobacco Screening.on 022 Tobacco use status CPHS b) No [place] [address] DO Work Phone: Tobacco Screening.on 021 Fall risk assessment a) No falls within the last year [facility] Work Phone: Tobacco use status CP b) No -[facility] Work Phone: Tobacco Screening.on 021 Tobacco use status CPHS b) No [facility] Work Phone: Tobacco Screening.on 021 Tobacco use status HS b) No [facility] Work Phone: Hemoglobin A1Con 02-01-2021 Glucose [Mass/Vol] 240 mg/dL [facility] [employer] Phone: HbA1c (Bld) [Mass fraction] 10.0 % Abnormal [facility] [employer] Phone: Comment on above: Diagnosis of Diabete s-Adults Non-Diabetic: < or = 5.6% Increased risk for developing diabetes: 5.7-6.4% Diagnostic of diabetes: > or = 6.5%. Monitoring of Diabetes Age (y) Therapeutic Goal (%) Adults: >18 <7.0 Pediatrics: 13-18 <7.5 7-12 <8.0 0- 6 7.5-8.5 [place] [employer]. Diabetes Care 33(S1), Mar 2009. Laboratory - Chemistry and C hemistry - challengeon 02-01-2021 Anion gap [Moles/Vol] 16 mmol/L 10 - 20 [facility] Phone: Calcium [Mass/Vol] 9.6 mg/dL 8.6 - 10.3 [facility] Phone: Chloride [Moles/Vol] 98 mmol/L 98 - 107 [facility] [employer] Work Phone: CO2 [Moles/Vol] 25 mmol/L 21 - 32 [facility] Work Phone: Creatinine [Mass/Vol] 0.56 mg/dL See Below [facility] [employer] Phone: Comment on above: Reference Range: 0.5 0 - 1.05 Glucose [Mass/Vol] 294 mg/dL above high threshold 74 - 99 [facility] Work Phone: Potassium [Moles/Vol] 3.9 mmol/L 3.5 - 5.3 [facility] Work Phone: Sodium [Moles/Vol] 135 mmol/L below low threshold 136 - 145 [facility] Work Phone: Urea nitrogen [Mass/Vol] 19 mg/dL 6 - 23 [facility] Work Phone: No Panel Informationon 02-01 >60 >60 [facility] Work Phone: Comment on above: CALCULATIONS OF PENELOPE MATED GFR ARE PERFORMED USING THE MDRD STUDY EQUATION FOR THE IDMS-TRACEABLE CREATININE METHODS. CLIN CHEM 2007;53:766-72 No Panel Informationon 11-30 -[facility] 6 I Work Phone: [email or web address] [email or web address] [id number]} SafariDeskGastroent erology-Modern Armoryw [facility] 6 I Work Phone: Coronavirus 2019 RNA by PCR, Screening Asymptomticon 11-28-2020 Coronavirus 2019 RNA by PCR, Screening Asymptomtic Not detected Normal See Below [facility]kGastroContinuity ControlologyQualiLifew [facility] 6 I Work Phone: Comment on above: SOURCE: Nasal, Nasop haryngealReference Range: Not Detected.This assay is designed to detect the N, ORF1ab and/or S genes of SARS-CoV-2 via nucleic acid amplification. A Negative (NOT DETECTED) result does not preclude 2019-nCoV infection since the adequacy of sample collection and/or low viral burden may result in presence of viral nucleic acids below the clinical sensitivity of this test method. Negative (NOT DETECTED) result should not be used as the sole basis for treatment or other patient management decisions. Rather negative results should be combined with clinical observations, patient history, and epidemiological information to make patient management decisions.Fact sheet for providers: https://www.fda.gov/media/072690/downloadFact sheet for patients: https://www.fda.gov/media/816284/downloadThis test has received FDA Emergency Use Authorization (EUA) and has been verified by [facility] ([facility]). This test is only authorized for the duration of time that circumstances exist to justify the authorization of the emergency use of in vitro diagnostic tests for the detection of SARS-CoV-2 virus and/or diagnosis of COVID-19 infection under section 564(b)(1) of the Act, 21 U.S.C. 360bbb-3(b)(1), unless the authorization is terminated or revoked sooner. [facility] is certified under CLIA-88 as qualified to perform high complexity testing. Testing is performed in the [facility] laboratories located at [address] [place] [address]. Tobacco Screening.on Fall risk assessment a) No falls within the last year [facility] [employer] Work Phone: Tobacco use status CPHS b) No [facility] [employer] Work Phone: Tobacco Screening.on Tobacco use status CPHS b) No [facility] Work Phone: Hemoglobin A1Con 10-25-2020 Glucose [Mass/Vol] 197 mg/dL [facility] Work Phone: HbA1c (Bld) [Mass fraction] 8.5 % Abnormal [facility] Work Phone: Comment on above: Diagnosis of Diabete s-Adults Non-Diabetic: < or = 5.6% Increased risk for developing diabetes: 5.7-6.4% Diagnostic of diabetes: > or = 6.5%. Monitoring of Diabetes Age (y) Therapeutic Goal (%) Adults: >18 <7.0 Pediatrics: 13-18 <7.5 7-12 <8.0 0- 6 7.5-8.5 [place] [employer]. Diabetes Care 33(S1), Mar 2009. Laboratory - Chemistry and C hemistry - challengeon 10-25-2020 Anion gap [Moles/Vol] 12 mmol/L 10 - 20 [facility] Work Phone: Calcium [Mass/Vol] 9.3 mg/dL 8.6 - 10.3 [facility] [employer] Work Phone: Chloride [Moles/Vol] 101 mmol/L 98 - 107 [facility] [employer] Work Phone: CO2 [Moles/Vol] 27 mmol/L 21 - 32 [facility] Work Phone: Creatinine [Mass/Vol] 0.57 mg/dL See Below [facility] [employer] Phone: Comment on above: Reference Range: 0.5 0 - 1.05 Glucose [Mass/Vol] 221 mg/dL above high threshold 74 - 99 [facility] [employer] Work Phone: Potassium [Moles/Vol] 4.2 mmol/L 3.5 - 5.3 [facility] Work Phone: Sodium [Moles/Vol] 136 mmol/L 136 - 145 [facility] Phone: Urea nitrogen [Mass/Vol] 24 mg/dL above high threshold 6 - 23 [facility] [employer] Phone: Lipid Panelon 10-25-2020 Cholesterol [Mass/Vol] 167 mg/dL 0 - 199 [facility] [employer] Phone: Comment on above: . AGE DESIRABLE BORD HAVEN HIGH HIGH 0-19 Y 0 - 169 170 - 199 >/= 200 20-24 Y 0 - 189 190 - 224 >/= 225 >24 Y 0 - 199 200 - 239 >/= 240 All ranges are based on fasting samples. Specific therapeutic targets will vary based on patient-specific cardiac risk.. Pediatric guidelines reference:Pediatrics 2011, 128(S5). Adult guidelines reference: NCEP ATPIII Guidelines, CIARA 2001, 258:2486-97. Venipuncture immediately after or during the administration of Metamizole may lead to falsely low results. Testing should be performed immediately prior to Metamizole dosing. Cholesterol in HDL [Mass/Vol] 45.0 mg/dL [facility] Phone: Comment on above: . AGE VERY LOW LOW N ORMAL HIGH 0-19 Y < 35 < 40 40-45 ---- 20- 24 Y ---- < 40 >45 ---- >24 Y ---- < 40 40-60 >60. Cholesterol in LDL [Mass/Vol] 63 mg/dL 0 - 99 [facility] Phone: Comment on above: . NEAR BORD AGE SERGEI RABLE OPTIMAL HIGH HIGH VERY HIGH 0-19 Y 0 - 109 --- 110-129 >/= 130 ---- 20-24 Y 0 - 119 --- 120-159 >/= 160 ---- >24 Y 0 - 99 100-129 130-159 160-189 >/=190. Cholesterol non HDL [Mass/Vol] 122 mg/dL [facility] Phone: Comment on above: AGE DESIRABLE BORDER LINE HIGH HIGH VERY HIGH 0-19 Y 0 - 119 120 - 144 >/= 145 >/= 160 20-24 Y 0 - 149 150 - 189 >/= 190 ---- >24 Y 30 MG/DL ABOVE LDL CHOLESTEROL GOAL. Cholesterol.total /Cholesterol in HDL [Mass ratio] 3.7 {ratio} [facility]StapletonOkai[facility] Phone: Comment on above: REF VALUESDESIRABLE < 3.4HIGH RISK > 5.0 Triglyceride [Mass/Vol] 293 mg/dL above high threshold 0 - 149 [facility]leton[facility] Phone: Comment on above: . AGE DESIRABLE BORD HAVEN HIGH HIGH VERY HIGH 0 D-90 D 19 - 174 ---- ---- ----91 D- 9 Y 0 - 74 75 - 99 >/= 100 ---- 10-19 Y 0 - 89 90 - 129 >/= 130 ---- 20-24 Y 0 - 114 115 - 149 >/= 150 ---- >24 Y 0 - 149 150 - 199 200- 499 >/= 500. Venipuncture immediately after or during the administration of Metamizole may lead to falsely low results. Testing should be performed immediately prior to Metamizole dosing. Lipid Panel 59 mg/dL above high threshold 0 - 40 [facility] Phone: No Panel Informationon 10-25 >60 >60 [facility] Phone: Comment on above: CALCULATIONS OF PENELOPE MATED GFR ARE PERFORMED USING THE MDRD STUDY EQUATION FOR THE IDMS-TRACEABLE CREATININE METHODS. CLIN CHEM 2007;53:766-72 CREATININE SERUMon Creatinine [Mass/Vol] 0.54 mg/dL 0.50 - 1.20 mg/dL [facility] Interpretation and review of laboratory results Normal [facility] Creatinine [Mass/Vol] 0.54 mg/dL Normal 0.50-1.20 [facility] Comment on above: Performed By: #### C REAB, HDLT #### [facility] (DEFAULT) [address] [address] EST GFR, >=60 Normal >=60 [facility] Comment on above: Performed By: #### C REAB, HDLT #### [facility] (DEFAULT) [address] [address] EST GFR,Non >=60 Normal >=60 [facility] Comment on above: Performed By: #### C REAB, HDLT #### [facility] (DEFAULT) [address] [address] LIPID PANEL W CALCULATED LDL on 10-16-2020 Cholesterol [Mass/Vol] 138 mg/dL <[address] [facility] Comment on above: [<200 mg/dL: Desirab le] [200-239 mg/dL: Borderline High] [>239 mg/dL: High] Cholesterol in HDL [Mass/Vol] 41 mg/dL >=[address] [facility] Comment on above: [<40 mg/dL: Low (Hig h Risk)] [>59 mg/dL: High (Low Risk)] Cholesterol in HDL [Mass/Vol] 97 mg/dL <[address] [facility] Cholesterol in LDL [Mass/Vol] 46 mg/dL 0 - 99 mg/dL [facility] Comment on above: [<100 mg/dL: Optimal ] [100-129 mg/dL: Near Optimal] [130-159 mg/dL: Borderline High] [160-189 mg/dL: High] [>189 mg/dL: Very High] Cholesterol.total /Cholesterol in HDL [Mass ratio] 3.4 {ratio} <4.[address] [facility] Interpretation and review of laboratory results Abnormal [facility] Triglyceride [Mass/Vol] 253 mg/dL High <[address] [facility] Comment on above: [<150 mg/dL: Desirab le] [150-199 mg/dL: Borderline] [200-499 mg/dL: High] [>500 mg/dL: Very High] Calculated LDL Cholesterol 46 mg/dL Normal 0-99 [facility] Comment on above: Result Comment: [<10 0 mg/dL: Optimal] [100-129 mg/dL: Near Optimal] [130-159 mg/dL: Borderline High] [160-189 mg/dL: High] [>189 mg/dL: Very High] Performed By: #### Kayley REAB, HDLT #### [facility] (DEFAULT) [address] [address] Cholesterol [Mass/Vol] 138 mg/dL Normal <200 [facility] Comment on above: Result Comment: [<20 0 mg/dL: Desirable] [200-239 mg/dL: Borderline High] [>239 mg/dL: High] Performed By: #### C REAB, HDLT #### [facility] (DEFAULT) [address] [place] [address] Cholesterol in HDL [Mass/Vol] 41 mg/dL Normal >=40 [facility] Comment on above: Result Comment: [<40 mg/dL: Low (High Risk)] [>59 mg/dL: High (Low Risk)] Performed By: #### C REAB, HDLT #### [facility] (DEFAULT) [address] [place] [address] Non HDL Cholesterol 97 mg/dL Normal <130 [facility] Comment on above: Performed By: #### C REAB, HDLT #### [facility] (DEFAULT) [address] [place] [address] Total Cholesterol/HDL Ratio 3.4 Normal <4.5 [facility] Comment on above: Performed By: #### C REAB, HDLT #### [facility] (DEFAULT) [address] [place] [address] Triglyceride [Mass/Vol] 253 mg/dL High <150 [facility] Comment on above: Result Comment: [<15 0 mg/dL: Desirable] [150-199 mg/dL: Borderline] [200-499 mg/dL: High] [>500 mg/dL: Very High] Performed By: #### C REAB, HDLT #### [facility] (DEFAULT) [address] [place] [address] Laboratory - Chemistry and C hemistry - challengeon 10-16-2020 GFR/1.73 sq M.predicted MDRD (S/P/Bld) [Vol rate/Area] mL/min/{1.73_m2} >=60 mL/min/1.73sqM [facility] No Panel Informationon 10-[address] [facility] Interpretation and review of laboratory results Abnormal [facility] POCT GLUCOSE, FINGER STICKon 10-16-2020 Glucose [Mass/Vol] 122 mg/dL Abnormal 70 - 99 mg/dL [facility] POCT HEMOGLOBIN A1Con 2020 HbA1c (Bld) [Mass fraction] 8.1 % Abnormal 4.7 - 5.6 % [facility] Tobacco Screening.on 021 Tobacco use status CPHS b) No [facility] [employer] Phone: CT Abdomen and Pelvis with I V Contraston 10-09-2020 CT Abdomen and Pelvis W contrast IV Normal [facility] [employer] Phone: Hepatic Function Panelon Albumin BCP dye [Mass/Vol] 4.3 g/dL 3.4 - 5.0 [facility] [employer] Work Phone: ALP [Catalytic activity/Vol] 73 U/L 33 - 136 [facility] [employer] Phone: ALT With P-5'-P [Catalytic activity/Vol] 30 U/L 7 - 45 [facility] [employer] Phone: Comment on above: Patients treated wit h Sulfasalazine may generate falsely decreased results for ALT. AST With P-5'-P [Catalytic activity/Vol] 25 U/L 9 - 39 [facility] [employer] Phone: Bilirubin [Mass/Vol] 1.1 mg/dL 0.0 - 1.2 [facility] [employer] Phone: Bilirubin.direct [Mass/Vol] 0.2 mg/dL 0.0 - 0.3 [facility] [employer] Phone: Protein [Mass/Vol] 7.0 g/dL 6.4 - 8.2 [facility] [employer] Work Phone: Laboratory - Chemistry and C hemistry - challengeon 10-02-2020 Anion gap [Moles/Vol] 14 mmol/L 10 - 20 [facility] [employer] Phone: Calcium [Mass/Vol] 9.6 mg/dL 8.6 - 10.3 [facility] [employer] Phone: Chloride [Moles/Vol] 101 mmol/L 98 - 107 [facility] [employer] Work Phone: CO2 [Moles/Vol] 25 mmol/L 21 - 32 [facility] [employer] Work Phone: Creatinine [Mass/Vol] 0.63 mg/dL See Below [facility] [employer] Phone: Comment on above: Reference Range: 0.5 0 - 1.05 Glucose [Mass/Vol] 165 mg/dL above high threshold 74 - 99 [facility] [employer] Work Phone: Potassium [Moles/Vol] 4.0 mmol/L 3.5 - 5.3 [facility] [employer] Work Phone: Sodium [Moles/Vol] 136 mmol/L 136 - 145 [facility] [employer] Phone: Urea nitrogen [Mass/Vol] 17 mg/dL 6 - 23 [facility] [employer] Work Phone: Laboratory - Hematology and Cell countson 10-02-2020 Erythrocyte distribution width (RBC) [Ratio] 15.1 % above high threshold See Below [facility] [employer] Phone: Comment on above: Reference Range: 11. 5 - 14.5 Hematocrit (Bld) [Volume fraction] 44.3 % See Below [facility] [employer] Phone: Comment on above: Reference Range: 36. 0 - 46.0 Hemoglobin (Bld) [Mass/Vol] 14.9 g/dL See Below [facility] [employer] Phone: Comment on above: Reference Range: 12. 0 - 16.0 MCHC (RBC) [Mass/Vol] 33.7 g/dL See Below [facility] [employer] Phone: Comment on above: Reference Range: 32. 0 - 36.0 MCV (RBC) [Entitic vol] 84 fL 80 - 100 [facility] [employer] Phone: Platelets (Bld) [#/Vol] 270 10*3/uL 150 - 450 [facility] [employer] Phone: RBC (Bld) [#/Vol] 5.29 {x10E12/L} above high threshold See Below [facility] [employer] Phone: Comment on above: Reference Range: 4.0 0 - 5.20 WBC (Bld) [#/Vol] 8.9 10*3/uL 4.4 - 11.3 [facility] [employer] Phone: Lipase, Serumon 10-02-2020 Lipase [Catalytic activity/Vol] 24 U/L 9 - 82 [facility] [employer] Phone: Comment on above: Venipuncture immedia tely after or during the administration of Metamizole may lead to falsely low results. Testing should be performed immediately prior to Metamizole dosing. No Panel Informationon 10-02 >60 >60 [facility] [employer] Phone: Comment on above: CALCULATIONS OF PENELOPE MATED GFR ARE PERFORMED USING THE MDRD STUDY EQUATION FOR THE IDMS-TRACEABLE CREATININE METHODS. CLIN CHEM 2007;53:766-72 STOOL PATHOGEN PCR PANELon 0 10-02-2020 Campylobacter sp DNA.diarrheagenic RADHA+probe Ql (Stl) Not detected See Below [facility] [employer] Phone: Comment on above: Reference Range: NOT DETECTED E. coli stx1 gene RADHA+probe Ql (Unsp spec) Not detected See Below [facility] [employer] Phone: Comment on above: Reference Range: NOT DETECTED E. coli stx2 gene RADHA+probe Ql (Unsp spec) Not detected See Below [facility] [employer] Phone: Comment on above: Reference Range: NOT DETECTED Norovirus genogroup I and II RNA RADHA+probe Nom (Stl) Not detected See Below [facility] [employer] Phone: Comment on above: Reference Range: NOT DETECTED Rotavirus RNA RADHA+probe Nom (Stl) Not detected See Below [facility] [employer] Phone: Comment on above: Reference Range: NOT DETECTED The enteric PCR panel is a panel of sensitive and specific amplified nucleic acid tests indicated as an aid in the diagnosis of specific bacterial and viral agents of gastrointestinal illness, in conjunction with other clinical, laboratory, and epidemiological information. This test is not approved for monitoring these infections. Monitoring is available for Salmonella and Shigella infections-request test Stool PCR Follow-Up (STLPF). Monitoring tests are not available at this time for other enteric agents in this panel. Shigella sp DNA RADHA+probe Ql (Unsp spec) Not detected See Below [facility] [employer] Phone: Comment on above: Reference Range: NOT DETECTED Vibrio sp DNA RADHA+probe Nom (Unsp spec) Not detected See Below [facility] [employer] Phone: Comment on above: Reference Range: NOT DETECTED Yersinia sp DNA RADHA+probe Nom (Unsp spec) Not detected See Below [facility] [employer] Phone: Comment on above: SOURCE: Reference Ra nge: NOT DETECTED STOOL PATHOGEN PCR PANEL Not detected See Below [facility] [employer] Phone: Comment on above: Reference Range: NOT DETECTED Tobacco Screening.on 021 Fall risk assessment a) No falls within the last year [facility] [employer] Phone: Tobacco use status CPHS b) No [facility] [employer] Phone: XR KNEE LEFT 4+ VIEWS (SPECI FY VIEWS IN COMMENTS)on 09-26-2020 XR KNEE LEFT 4+ VIEWS (SPECIFY VIEWS IN COMMENTS) EXAMINATION: XR KNEE LEFT 4+ VIEWS (SPECIFY VIEWS IN COMMENTS) 09/26/2020 9:46 AM HISTORY: ORDERING SYSTEM PROVIDED HISTORY: Pain, TECHNOLOGIST PROVIDED HISTORY: Illness/Other Reason for exam: left knee pain no injury Cancer History: u Surgery, RadiationHistory: u Encounter Type: Initial Additional signs and symptoms: swelling ORDERING SYSTEM PROVIDED DIAGNOSIS CODES: R52 Pain FINDINGS: LEFT KNEE: 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 There is also at least mild patellofemoral and lateral compartment osteoarthritis seen. Small joint effusion noted. Patellar spurring at the quadriceps and patellar tendon attachment site seen. No acute fracture. Vascular calcifications seen. 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 There is also at least mild patellofemoral and lateral compartment osteoarthritis seen. Small joint effusion noted. PD/lab Workstation ID: [id number] Dictated by: JENNIFER QUINONEZ on ThuSep 27, 2020 1:29:35 PM EDT Transcribed by: JUAN JOSÉ MONTIEL on ThuSep 27, 2020 1:59:46 PM EDT Finalized by: JENNIFER QUINONEZ on ThuSep 27, 2020 3:36:42 PM EDT Normal [facility] Comment on above: Order Comment: Injur y/Trauma or Illness?:Illness/Other How long have you had these symptoms (acute/chronic)?:Chronic Reason for exam?:left knee pain no injury History of cancer?:u Surgeries, chemotherapy, or radiation?:u Type of Exam?:Initial Additional signs and symptoms?:swelling Radiologyon 08-29-2020 XR Elbow 3 Views Normal -[facility] 1400 Work Phone: Tobacco Screening.on 021 Fall risk assessment a) No falls within the last year [facility] 300 Work Phone: Tobacco use status [facility] b) No -[facility] 300 Work Phone: Otheron 12-08-2019 XR Knee 1 or 2 views Interpreted by: DEVON SPEARS12/08/19 14:23MRN: [id number] Name: ALINA PATEL STUDY:KNEE; 1 OR 2 VIEWS; Left; 12/08/2019 9:48 am INDICATION:pain and swelling. COMPARISON:None. ORDERING CLINICIAN:KRISTEN CABALLERO FINDINGS:LEFT KNEE-AP AND LATERAL UPRIGHTMild spurring is seen from the posterior margin of the patella. Asmall joint effusion is present. There is slight narrowing of themedial tibiofemoral joint without any significant spurring seen. Aloose body is present, adjacent to the lateral tibial spine. Thelateral tibiofemoral joint space is preserved. The bone density isnormal. IMPRESSION:Mild degenerative changes of the medial tibiofemoral andpatellofemoral joints with a small suprapatellar effusion. Electronically signed by: DEVON SPEARS 12/08/19 14:23 Normal [facility] 300 Work Phone: [phone] [address] [place], [place] [address]Phone [phone], Maqybrvf Lab ReportLower Venous Duplex UltrasoundPatient Name: ALINA PATEL Reading Physician: [id number] Melanie Saleem MDStudy Date: 12/08/2019 Referring Physician: [id number] CaballeroN/PID: [id number] PCP:Accession/Order#: [id number] CC Report to:Date of : 1960 Technologist: Mary Mays RVTGender: Severiano Technologist 2:Admission Status: Outpatient [facility]: M79.605-Pain in left legProcedure/CPT: 17236 Peripheral venous duplex scan for DVT [id number] History: Leg pain.CONCLUSIONS:Right Lower Venous: Right common femoral vein is negative for deep vein thrombus. Additional Findings; Cystic Structure Cystic structure seen post to vascular system at the common femoral area. Measures: 2.0 x 1.6 x 1.22cm. No color Doppler seen within.Left Lower Venous: No evidence of acute deep vein thrombus visualized in the left lower extremity. Additional Findings; Cystic structure Rodriguez cyst seen post/med LT knee. No color Doppler seen within.Imaging \T\ Doppler Findings:Right Compressible Thrombus FlowCFV Yes None AUGLeft Compress Thrombus FlowIliac Yes None AUGCFV Yes None AUGPFV Yes NoneFV Proximal Yes None Spontaneous/PhasicFV Mid Yes NoneFV Distal Yes NonePopliteal Yes None AUGPeroneal Yes NonePTV Yes [id number] Melanie Saleem MD Final [facility] 300 Work Phone: VitD, 1,25 Dihydroxyon 10-10 1,25 Dihydroxy VitD2 <4.0 Normal [facility] [place] Reference Lab Comment on above: Performed By: #### H BA1C #### [facility] Routine Lab [address] [phone] #### 125VTD #### [facility] Chemistry [address] [place] [phone] 1,25 Dihydroxy VitD3 27.2 pg/mL Normal [facility] [place] Reference [facility] Comment on above: Performed By: #### H BA1C #### [facility] Routine Lab [address] [place] [phone] #### 125VTD #### [facility] Chemistry [address] [place] [phone] Vit D,1,25 DiOH Normal 15.0-60.0 [facility] [place] Reference [facility] Comment on above: Result Comment: 27.2 This test was developed and its performance characteristics determined by [facility] [place]'s Wilda Elle [facility] [place] ([facility] It has not been cleared or approved by the FDA. [facility] is regulated under CLIA as qualified to perform high complexity testing. This test is used for clinical purposes. It should not be regarded as investigational or for research. Performed By: #### H BA1C #### [facility] Routine Lab [address] [place] [phone] #### 125VTD #### [facility] Chemistry [address] [place] [address] Hemoglobin A1con 10-06-2019 HbA1c (Bld) [Mass fraction] 177 mg/dL Normal [facility] [place] Reference [facility] Comment on above: Performed By: #### H BA1C #### [facility] Routine Lab [address] [place], [place] [phone] #### 125VTD #### [facility] Chemistry [address] [place] [phone] HbA1c (Bld) [Mass fraction] 7.8 % High 4.3-5.6 [facility] [place] Reference [facility] Comment on above: Performed By: #### H BA1C #### [facility] Routine Lab [address] [place], [place] [phone] #### 125VTD #### [facility] Chemistry [address] [place], [place] [phone] VitD, 1,25 Dihydroxyon 07-21 1,25 Dihydroxy VitD2 <4.0 Normal [facility] [place] Reference [facility] Comment on above: Performed By: #### H BA1C #### [facility] Routine [facility] [address] [place], [place] [phone] #### 125VTD #### [facility] Chemistry [address] [place], [place] [phone] 1,25 Dihydroxy VitD3 22.5 pg/mL Normal [facility] [place] Reference [facility] Comment on above: Performed By: #### H BA1C #### [facility] Routine Lab [address] [place], [place] [phone] #### 125VTD #### [facility] Chemistry [address] [place], [place] [phone] Vit D,1,25 DiOH Normal 15.0-60.0 [facility] [place] Reference [facility] Comment on above: Result Comment: 22.5 This test was developed and its performance characteristics determined by [facility] [place]'s Wilda Almeida [facility] [place] ( [facility]). It has not been cleared or approved by the FDA. [facility] is regulated under CLIA as qualified to perform high complexity testing. This test is used for clinical purposes. It should not be regarded as investigational or for research. Performed By: #### H BA1C #### [facility] Routine Lab [address] [phone] #### 125VTD #### [facility] Chemistry [address] [address] Hemoglobin A1con 07-21-2019 HbA1c (Bld) [Mass fraction] 166 mg/dL Normal [facility] [place] Reference Lab Comment on above: Performed By: #### H BA1C #### [facility] Routine Lab [address] [place] [phone] #### 125VTD #### [facility] Chemistry [address] [place] [phone] HbA1c (Bld) [Mass fraction] 7.4 % High 4.3-5.6 [facility] [place] Reference [facility] Comment on above: Performed By: #### H BA1C #### [facility] Routine Lab [address] [place] [phone] #### 125VTD #### [facility] Chemistry [address] [place] [phone] Hemoglobin A1con 03-23-2019 HbA1c (Bld) [Mass fraction] 7.2 % High 4.3-5.6 [facility] [place] Reference [facility] Comment on above: Performed By: #### H BA1C #### [facility] Routine Lab [address] [phone] HbA1c (Bld) [Mass fraction] 160 mg/dL Normal [facility] [place] Reference [facility] Comment on above: Performed By: #### H BA1C #### [facility] Routine Lab [address] [phone] VitD, 1,25 Dihydroxyon 12-21 1,25 Dihydroxy VitD2 <4.0 Normal [facility] [place] Reference Lab Comment on above: Performed By: #### H BA1C #### [facility] Routine Lab [address] [phone] #### 125VTD #### [facility] Chemistry [address] [place], [place] [phone] 1,25 Dihydroxy VitD3 13.3 pg/mL Normal [facility] [place] Reference Lab Comment on above: Performed By: #### Naomie BA1C #### [facility] Routine Lab [address] [place] [address] #### 125VTD #### [facility] Chemistry [address] [place], [place] [phone] Vit D,1,25 DiOH Low 15.0-60.0 [facility] [place] Reference [facility] Comment on above: Result Comment: 13.3 This test was developed and its performance characteristics determined by [facility] [place]'s Wilda Elle [facility] [place] ( [facility]). It has not been cleared or approved by the FDA. [facility] is regulated under CLIA as qualified to perform high complexity testing. This test is used for clinical purposes. It should not be regarded as investigational or for research. Performed By: #### Naomie BA1C #### [facility] Routine Lab [address] [place] [address] #### 125VTD #### [facility] Chemistry [address] [place], [place] [phone] Hemoglobin A1con 12-17-2018 HbA1c (Bld) [Mass fraction] 151 mg/dL Normal [facility] [place] Reference [facility] Comment on above: Performed By: #### Naomie BA1C #### [facility] Routine Lab [address] [place] [address] #### 125VTD #### [facility] Chemistry [address] [place], [place] [phone] HbA1c (Bld) [Mass fraction] 6.9 % High 4.3-5.6 [facility] [place] Reference [facility] Comment on above: Performed By: #### Naomie BA1C #### [facility] Routine Lab [address] [place], [place] [phone] #### 125VTD #### [facility] [place] [facility] Chemistry [address] [place], [place] [address] Auto Diffon 05-07-2018 Basophils #/vol (Bld) 0.0 E3/mcL Normal 0.0-0.2 [facility] Comment on above: Order Comment: Order Added by Discern Expert. Performed By: #### 2 [id number] #### [facility] [address] [place] [address] Basophils/100 WBC (Bld) 0.5 % Normal 0.0-2.0 [facility] Comment on above: Order Comment: Order Added by Discern Expert. Performed By: #### 2 [id number] #### [facility] [address] [place] [address] Eos Absolute 0.3 E3/mcL Normal 0.0-0.7 [facility] Comment on above: Order Comment: Order Added by Discern Expert. Performed By: #### 2 [id number] #### [facility] [address] [place] [address] Eosinophils/100 WBC (Bld) 4.1 % Normal 0.0-11.0 [facility] Comment on above: Order Comment: Order Added by Discern Expert. Performed By: #### 2 [id number] #### [facility] [address] [place] [address] Lymphocytes #/vol (Bld) 2.7 E3/mcL Normal 1.2-3.4 [facility] Comment on above: Order Comment: Order Added by Discern Expert. Performed By: #### 2 [id number] #### [facility] [address] [place] [address] Lymphocytes/100 WBC (Bld) 39.7 % Normal 20.0-55.0 [facility] Comment on above: Order Comment: Order Added by Discern Expert. Performed By: #### 2 [id number] #### [facility] [address] [place] [address] Divide Absolute 0.3 E3/mcL Normal 0.0-0.7 [facility] Comment on above: Order Comment: Order Added by Discern Expert. Performed By: #### 2 [id number] #### [facility] [address] [place] [address] Monocytes/100 WBC (Bld) 4.9 % Normal 0.0-10.0 [facility] Comment on above: Order Comment: Order Added by Discern Expert. Performed By: #### 2 [id number] #### [facility] [address] [place] [address] Neutro Absolute 3.4 E3/mcL Normal 1.4-6.5 [facility] Comment on above: Order Comment: Order Added by Discern Expert. Performed By: #### 2 [id number] #### [facility] [address] [place] [address] Neutro Auto 50.8 % Normal 37.0-75.0 [facility] Comment on above: Order Comment: Order Added by Discern Expert. Performed By: #### 2 [id number] #### [facility] [address] [place] [address] CBC w/ Auto Diffon 9 Erythrocyte distribution width Ratio (RBC) 14.6 % High 11.5-14.5 [facility] Comment on above: Performed By: #### 2 [id number] #### [facility] [address] [place] [address] Hematocrit Volume Fraction (Bld) 46.2 % Normal 36.0-48.0 [facility] Comment on above: Performed By: #### 2 [id number] #### [facility] [address] [place] [address] Hemoglobin mass conc (Bld) 15.6 g/dL Normal 12.0-16.0 [facility] Comment on above: Performed By: #### 2 [id number] #### [facility] [address] [place] [address] MCH Entitic mass (RBC) 27.7 pg Normal 27.0-31.0 [facility] Comment on above: Performed By: #### 2 [id number] #### [facility] [address] [place] [address] MCHC mass conc (RBC) 33.8 g/dL Normal 33.0-37.0 [facility] Comment on above: Performed By: #### 2 [id number] #### [facility] [address] [place] [address] MCV Entitic volume (RBC) 81.9 fL Normal 78.0-100.0 [facility] Comment on above: Performed By: #### 2 [id number] #### [facility] [address] [place] [address] Platelet mean volume Entitic volume (Bld) 8.3 fL Normal 7.4-11.0 [facility] Comment on above: Performed By: #### 2 [id number] #### [facility] [address] [place] [address] Platelets #/vol (Bld) 229 E3/mcL Normal 130-400 [facility] Comment on above: Performed By: #### 2 [id number] #### [facility] [address] [place] [address] RBC #/vol (Bld) 5.64 E6/mcL High 3.90-5.40 [facility] Comment on above: Performed By: #### 2 [id number] #### [facility] [address] [place] [address] WBC #/vol (Bld) 6.8 E3/mcL Normal 3.6-11.0 [facility] Comment on above: Performed By: #### 2 [id number] #### [facility] [address] [place] [address] CMPon 05-07-2018 Albumin mass conc 4.3 g/dL Normal 3.4-5.0 [facility] Comment on above: Performed By: #### 2 [id number] #### [facility] [employer] [address] [place] [address] Albumin/Globulin mass ratio 1.8 {ratio} Normal 1.1-1.9 [facility] Comment on above: Performed By: #### 2 [id number] #### [facility] [employer] [address] [place] [address] Alk Phos 58 Int._Unit/L Normal 33-110 [facility] Comment on above: Performed By: #### 2 [id number] #### [facility] [employer] [address] [place] [address] ALT enzyme act/vol 24 Int._Unit/L Normal 7-45 [facility] Comment on above: Performed By: #### 2 [id number] #### [facility] [employer] [address] [place] [address] Anion gap molar conc 11 mmol/L Normal 10-20 [facility] Comment on above: Performed By: #### 2 [id number] #### [facility] [employer] [address] [place] [address] AST enzyme act/vol 20 Int._Unit/L Normal 9-39 [facility] Comment on above: Performed By: #### 2 [id number] #### [facility] [employer] [address] [place] [address] Bili Total 1.28 mg/dL High 0.00-1.20 [facility] Comment on above: Performed By: #### 2 [id number] #### [facility] [employer] [address] [place] [address] Calcium mass conc 9.8 mg/dL Normal 8.6-10.3 [facility] Comment on above: Performed By: #### 2 [id number] #### [facility] [employer] [address] [place] [address] Chloride molar conc 105 mmol/L Normal 98-107 [facility] Comment on above: Performed By: #### 2 151420 #### [facility] [employer] [address] [place] [address] CO2 molar conc 27.0 mmol/L Normal 21.0-32.0 [facility] Comment on above: Performed By: #### 2 [id number] #### [facility] [employer] [address] [place] [address] Creatinine mass conc 0.4 mg/dL Low 0.5-1.1 [facility] Comment on above: Performed By: #### 2 [id number] #### [facility] [employer] [address] [place] [address] Globulin mass conc (S) 2.0 g/dL Normal 2.0-4.0 [facility] Comment on above: Performed By: #### 2 [id number] #### [facility] [employer] [address] [place] [address] [place] [address] Glucose mass conc 176 mg/dL High 70-99 [facility] Comment on above: Performed By: #### 2 [id number] #### [facility] [employer] [address] [place] [address] Potassium molar conc 4.0 mmol/L Normal 3.5-5.3 [facility] Comment on above: Performed By: #### 2 [id number] #### [facility] [employer] [address] [place] [address] Protein mass conc 6.7 g/dL Normal 6.4-8.2 [facility] Comment on above: Performed By: #### 2 [id number] #### [facility] [employer] [address] [place], [place] [address] Sodium molar conc 139 mmol/L Normal 136-145 [facility] Comment on above: Performed By: #### 2 [id number] #### [facility] [employer] [address] [place] [address] Urea nitrogen mass conc 18 mg/dL Normal 6-23 [facility] Comment on above: Performed By: #### 2 [id number] #### [facility] [employer] [address] [place] [address] Urea nitrogen/Creatini ne mass ratio 45.0 ratio High 5.4-30.0 [facility] Comment on above: Performed By: #### 2 [id number] #### [facility] [employer] [address] [place], [place] [id number] [id number] 05-07-2018 Hemoglobin A1c/Hemoglobin.to harry mass fraction (Bld) 6.9 % High 4.0-6.3 [facility] Comment on above: Performed By: #### 3 [id number] #### [facility] Chemistry Manual Subsection [address] [place] [address] Lipid Profileon 05-07-2018 Cholesterol in HDL mass conc 49 mg/dL Normal 40-60 [facility] Comment on above: Performed By: #### 3 [id number] #### [facility] [employer] [address] [place] [address] Cholesterol in LDL mass conc 96 mg/dL Normal 0-130 [facility] Comment on above: Result Comment: <100 OPTIMAL 100-129 NEAR / ABOVE OPTIMAL 130-159 BORDERLINE HIGH 160-189 HIGH >190 VERY HIGH CALC LDL NOT VALID WHEN TRIGLYCERIDE IS >400 MG/DL Performed By: #### 3 [id number] #### [facility] [employer] [facility] [place] [address] Cholesterol in VLDL mass conc 22 mg/dL Normal 0-40 [facility] Comment on above: Performed By: #### 3 [id number] #### [facility] [employer] [facility] [place] [address] Cholesterol mass conc 167 mg/dL Normal 0-199 [facility] Comment on above: Result Comment: TOTA L CHOLEESTEROL: <200 NORMAL 200 - 239 BORDERLINE HIGH >240 HIGH Performed By: #### 3 [id number] #### [facility] [employer] [address] [place] [address] Triglyceride mass conc 112 mg/dL Normal 0-149 [facility] Comment on above: Result Comment: AGE DESIRABLE BORDERLINE HIGH 91 D - 9 Y 0 - 74 75 - 99 > 100 10 - 19 Y 0 - 89 90 - 129 > 130 20 -24 Y 0 - 114 115 - 149 > 150 > 25 0 - 149 150 - 199 200 - 499 Performed By: #### 3 [id number] #### [facility] [employer] [address] [place] [address] Microalb/Creat Ratioon 05-07 Creatinine mass conc mg/dL Normal 0-30 [facility] Comment on above: Performed By: #### 1 [id number] #### [facility] [address] [place] [address] Ur Microalbumin <0.7 Normal 0.0-1.9 [facility] Comment on above: Performed By: #### 1 [id number] #### [facility] [address] [place] [address] Creatinine mass conc 85.0 mg/dL Normal 20.0-300.0 [facility] Comment on above: Performed By: #### 1 [id number] #### [facility] [place] [address] eGFRon 05-07-2018 GFR/1.73 sq M predicted among non-blacks MDRD vol rate/area (S/P/Bld) mL/min/{1.73_m2} Normal [facility] Comment on above: Order Comment: Order added by Discern Expert. Performed By: #### 1 [id number] #### [facility] [address] [id number] Free T4on 01-20-2018 T4 free mass conc 0.78 ng/dL Normal 0.58-1.64 [facility] Comment on above: Result Comment: Alice ents receiving more than 5mg/day of biotin may have interference in test results. A sample should be taken no sooner than eight hours after previous dose. Performed By: #### 2 [id number] #### [facility] [address] [place] [address] [id number] 01-20-2018 Hemoglobin A1c/Hemoglobin.to harry mass fraction (Bld) 6.2 % Normal 4.0-6.3 [facility] Comment on above: Performed By: #### 3 [id number] #### [facility] Chemistry Manual Subsection [address] [place] [address] TSHon 01-20-2018 Thyrotropin Qn 1.01 mcIU/mL Normal 0.30-5.60 [facility] Comment on above: Performed By: #### 2 [id number] #### [facility] [address] [id number] Vital Signs Date Time Vital Sign Value Performing Clinician Facility 10-26-2024 10:39-0400 Body height 172.6 cm [employer] Work Phone: [facility] 10-26-2024 10:39-0400 Body mass index (BMI) [Ratio] 35.81 kg/m2 [employer] Work Phone: [facility] 10-26-2024 10:39-0400 Body weight 106.69 kg [employer] Work Phone: [facility] 10-26-2024 10:39-0400 Diastolic blood pressure 72 mm[Hg] [employer] Work Phone: [facility] 10-26-2024 10:39-0400 Heart rate 75 /min Kristen [place] DO Work Phone: [facility] 10-26-2024 10:39-0400 SaO2% (BldA) [Mass fraction] 94 % Kristen [place] DO Work Phone: [facility] 10-26-2024 10:39-0400 Systolic blood pressure 130 mm[Hg] Kristen [place] DO Work Phone: [facility] 10-19-2024 12:21-0400 Body height 172.6 cm Kristen [place] DO Work Phone: [facility] 10-19-2024 12:21-0400 Body mass index (BMI) [Ratio] 35.53 kg/m2 Kristen [place] DO Work Phone: [facility] 10-19-2024 12:21-0400 Body weight 105.82 kg Kristen [place] DO Work Phone: [facility] 10-19-2024 12:21-0400 Diastolic blood pressure 74 mm[Hg] Kristen [place] DO Work Phone: [facility] 10-19-2024 12:21-0400 Heart rate 90 /min Kristen [place] DO Work Phone: [facility] 10-19-2024 12:21-0400 SaO2% (BldA) [Mass fraction] 96 % Kristen [place] DO Work Phone: [facility] 10-19-2024 12:21-0400 Systolic blood pressure 136 mm[Hg] Kristen [place] DO Work Phone: [facility] 09-27-2024 09:190400 Body height 172.7 cm Kristen [place] DO Work Phone: [facility] 09-27-2024 09:19-0400 Body mass index (BMI) [Ratio] 35.48 kg/m2 Kristen [place] DO Work Phone: [facility] 09-27-2024 09:19-0400 Body weight 105.82 kg Kristen [place] DO Work Phone: [facility] 09-27-2024 09:19-0400 Diastolic blood pressure 82 mm[Hg] Kristen [place] DO Work Phone: [facility] 09-27-2024 09:19-0400 Heart rate 77 /min Kristen [place] DO Work Phone: [facility] 09-27-2024 09:19-0400 SaO2% (BldA) [Mass fraction] 97 % Kristen [place] DO Work Phone: [facility] 09-27-2024 09:19-0400 Systolic blood pressure 132 mm[Hg] Kristen [place] DO Work Phone: [facility] 05-23-2024 16:24-0400 Body height 172.7 cm Kristen [place] DO Work Phone: [facility] 05-23-2024 16:24-0400 Body mass index (BMI) [Ratio] 35.71 kg/m2 Kristen [place] DO Work Phone: [facility] 05-23-2024 16:24-0400 Body weight 106.5 kg Kristen [place] DO Work Phone: [facility] 05-23-2024 16:24-0400 Diastolic blood pressure 82 mm[Hg] Kristen [place] DO Work Phone: [facility] 05-23-2024 16:24-0400 Heart rate 89 /min Kristen [place] DO Work Phone: [facility] 05-23-2024 16:24-0400 SaO2% (BldA) [Mass fraction] 95 % Kristen [place] DO Work Phone: [facility] 05-23-2024 16:24-0400 Systolic blood pressure 140 mm[Hg] Kristen [place] DO Work Phone: [facility] 03-29-2024 07:47-0500 Body height 172.7 cm Kristen [place] DO Work Phone: [facility] 03-29-2024 07:47-0500 Body mass index (BMI) [Ratio] 35.71 kg/m2 Kristen [place] DO Work Phone: [facility] 03-29-2024 07:47-0500 Body weight 106.5 kg Kristen [place] DO Work Phone: [facility] 03-29-2024 07:47-0500 Diastolic blood pressure 78 mm[Hg] Kristen [place] DO Work Phone: [facility] 03-29-2024 07:47-0500 Heart rate 88 /min Kristen [place] DO Work Phone: [facility] 03-29-2024 07:47-0500 SaO2% (BldA) [Mass fraction] 98 % Kristen [place] DO Work Phone: [facility] 03-29-2024 07:47-0500 Systolic blood pressure 122 mm[Hg] Kristen [place] DO Work Phone: [facility] 02-08-2024 12:00-0500 Body height 172.7 cm Kristen [place] DO Work Phone: [facility] 02-08-2024 12:00-0500 Body mass index (BMI) [Ratio] 35.98 kg/m2 Kristen [place] DO Work Phone: [facility] 02-08-2024 12:00-0500 Body weight 107.32 kg Kristen [place] DO Work Phone: [facility] 02-08-2024 12:00-0500 Diastolic blood pressure 82 mm[Hg] Kristen [place] DO Work Phone: [facility] 02-08-2024 12:00-0500 Heart rate 89 /min Kristen [place] DO Work Phone: [facility] 02-08-2024 12:00-0500 SaO2% (BldA) [Mass fraction] 92 % Kristen [place] DO Work Phone: [facility] 02-08-2024 12:00-0500 Systolic blood pressure 122 mm[Hg] Kristen [place] DO Work Phone: [facility] 2023 08:43-0400 Body height 172.7 cm Kristen [place] DO Work Phone: [facility] 2023 08:43-0400 Body mass index (BMI) [Ratio] 35.58 kg/m2 Kristen [place] DO Work Phone: [facility] 2023 08:43-0400 Body weight 106.14 kg Kristen [place] DO Work Phone: [facility] 2023 08:43-0400 Diastolic blood pressure 82 mm[Hg] Kristen [place] DO Work Phone: [facility] 2023 08:43-0400 Heart rate 97 /min Kristen [place] DO Work Phone: [facility] 2023 08:43-0400 SaO2% (BldA) [Mass fraction] 97 % Kristen [place] DO Work Phone: [facility] 2023 08:43-0400 Systolic blood pressure 142 mm[Hg] Kristen [place] DO Work Phone: [facility] 12-07-2023 12:29-0400 Body height 172.7 cm Octavio Sadler APRN-OPERATING TABLE ASSEMBLER Work Phone: [facility] 12-07-2023 12:29-0400 Body mass index (BMI) [Ratio] 35.73 kg/m2 Octavio Sadler EFFICIENCY EXPERT-OPERATING TABLE ASSEMBLER Work Phone: [facility] 12-07-2023 12:29-0400 Body temperature 97.9 [degF] Octavio Sadler EFFICIENCY EXPERT-OPERATING TABLE ASSEMBLER Work Phone: [facility] 12-07-2023 12:29-0400 Body weight 106.59 kg Octavio Sadler EFFICIENCY EXPERT-OPERATING TABLE ASSEMBLER Work Phone: [facility] 12-07-2023 12:29-0400 Diastolic blood pressure 93 mm[Hg] Octavio Sadler EFFICIENCY EXPERT-OPERATING TABLE ASSEMBLER Work Phone: [facility] 12-07-2023 12:29-0400 Heart rate 104 /min Octavio Sadler EFFICIENCY EXPERT-OPERATING TABLE ASSEMBLER Work Phone: [facility] 12-07-2023 12:29-0400 Respiratory rate 18 /min Octavio Sadler EFFICIENCY EXPERT-OPERATING TABLE ASSEMBLER Work Phone: [facility] 12-07-2023 12:29-0400 SaO2% (BldA) [Mass fraction] 95 % Octavio Sadler EFFICIENCY EXPERT-OPERATING TABLE ASSEMBLER Work Phone: [facility] 12-07-2023 12:29-0400 Systolic blood pressure 162 mm[Hg] Octavio Sadler EFFICIENCY EXPERT-OPERATING TABLE ASSEMBLER Work Phone: [facility] 09-11-2023 11:38-0400 Diastolic blood pressure 78 mm[Hg] Kristen [place] DO Work Phone: [facility] 09-11-2023 11:38-0400 Systolic blood pressure 138 mm[Hg] Kristen [place] DO Work Phone: [facility] 09-11-2023 11:10-0400 Body height 172.7 cm Kristen [place] DO Work Phone: [facility] 09-11-2023 11:10-0400 Body mass index (BMI) [Ratio] 35.43 kg/m2 Kristen [place] DO Work Phone: [facility] 09-11-2023 11:10-0400 Body weight 105.69 kg Kristen [place] DO Work Phone: [facility] 09-11-2023 11:10-0400 Heart rate 93 /min Kristen [place] DO Work Phone: [facility] 09-11-2023 11:10-0400 SaO2% (BldA) [Mass fraction] 98 % Kristen Caballero Work Phone: [facility] 09-10-2023 08:00-0400 Body mass index (BMI) [Ratio] 35.9 kg/m2 Xenia Drasco EFFICIENCY EXPERT.OPERATING TABLE ASSEMBLER Work Phone: [facility] 09-10-2023 08:00-0400 Body weight 106.32 kg Xenia Gail EFFICIENCY EXPERT.OPERATING TABLE ASSEMBLER Work Phone: [facility] 09-10-2023 08:00-0400 Diastolic blood pressure 82 mm[Hg] Xenia Drasco EFFICIENCY EXPERT.OPERATING TABLE ASSEMBLER Work Phone: [facility] 09-10-2023 08:00-0400 Systolic blood pressure 150 mm[Hg] Xenia Gail EFFICIENCY EXPERT.OPERATING TABLE ASSEMBLER Work Phone: [facility] 05-27-2023 09:13-0400 Body temperature 98.1 [degF] Octavio Rezaenik EFFICIENCY EXPERT-OPERATING TABLE ASSEMBLER Work Phone: [facility] 05-27-2023 09:13-0400 Diastolic blood pressure 78 mm[Hg] Octavio Rezaenitaylor EFFICIENCY EXPERT-OPERATING TABLE ASSEMBLER Work Phone: [facility] 05-27-2023 09:13-0400 Heart rate 84 /min Octavio Rezaenitaylor EFFICIENCY EXPERT-OPERATING TABLE ASSEMBLER Work Phone: [facility] 05-27-2023 09:13-0400 Respiratory rate 14 /min Octavio Rezaenitaylor EFFICIENCY EXPERT-OPERATING TABLE ASSEMBLER Work Phone: [facility] 05-27-2023 09:13-0400 SaO2% (BldA) [Mass fraction] 97 % Octavio Rezaenitaylor EFFICIENCY EXPERT-OPERATING TABLE ASSEMBLER Work Phone: [facility] 05-27-2023 09:13-0400 Systolic blood pressure 147 mm[Hg] Octavio Rezaenitaylor EFFICIENCY EXPERT-OPERATING TABLE ASSEMBLER Work Phone: [facility] 05-12-2023 08:35-0400 Body height 172.7 cm Kristen [place] DO Work Phone: [facility] 05-12-2023 08:35-0400 Body mass index (BMI) [Ratio] 34.36 kg/m2 Kristen [place] DO Work Phone: [facility] 05-12-2023 08:35-0400 Body weight 102.51 kg Kristen [place] DO Work Phone: [facility] 05-12-2023 08:35-0400 Diastolic blood pressure 78 mm[Hg] Kristen [place] DO Work Phone: [facility] 05-12-2023 08:35-0400 Heart rate 79 /min Kristen [place] DO Work Phone: [facility] 05-12-2023 08:35-0400 SaO2% (BldA) [Mass fraction] 98 % Kristen [place] DO Work Phone: [facility] 05-12-2023 08:35-0400 Systolic blood pressure 138 mm[Hg] Kristen [place] DO Work Phone: [facility] 04-22-2023 08:14-0500 Body mass index (BMI) [Ratio] 34.64 kg/m2 Bebe Cee EFFICIENCY EXPERT-OPERATING TABLE ASSEMBLER Work Phone: [facility] 04-22-2023 08:14-0500 Body weight 103.33 kg Bebe Cee EFFICIENCY EXPERT-OPERATING TABLE ASSEMBLER Work Phone: [facility] 04-07-2023 10:27-0500 Body height 172.7 cm Tyler Benjaimn MD Work Phone: [facility] 04-07-2023 10:27-0500 Body mass index (BMI) [Ratio] 34.73 kg/m2 Tyler Benjamin MD Work Phone: [facility] 04-07-2023 10:27-0500 Body weight 103.6 kg Tyler Benjamin MD Work Phone: [facility] 04-07-2023 10:27-0500 Diastolic blood pressure 70 mm[Hg] Tyler Benjamin MD Work Phone: [facility] 04-07-2023 10:27-0500 Heart rate 85 /min Tyler Benjamin MD Work Phone: [facility] 04-07-2023 10:27-0500 SaO2% (BldA) [Mass fraction] 97 % Tyler Benjamin MD Work Phone: [facility] 04-07-2023 10:27-0500 Systolic blood pressure 122 mm[Hg] Tyler Benjamin MD Work Phone: [facility] 03-03-2023 10:36-0500 Body height 172.7 cm Octavio Sadler EFFICIENCY EXPERT-OPERATING TABLE ASSEMBLER Work Phone: [facility] 03-03-2023 10:36-0500 Body mass index (BMI) [Ratio] 34.97 kg/m2 Octavio Sadler EFFICIENCY EXPERT-OPERATING TABLE ASSEMBLER Work Phone: [phone] [place] [address] 03-03-2023 10:36-0500 Body temperature 97.81 [degF] Octavio Sadler EFFICIENCY EXPERT-OPERATING TABLE ASSEMBLER Work Phone: [facility] 03-03-2023 10:36-0500 Body weight 104.33 kg Octavio Sadler EFFICIENCY EXPERT-OPERATING TABLE ASSEMBLER Work Phone: [facility] 03-03-2023 10:36-0500 Diastolic blood pressure 83 mm[Hg] Octavio Sadler EFFICIENCY EXPERT-OPERATING TABLE ASSEMBLER Work Phone: [facility] 03-03-2023 10:36-0500 Heart rate 90 /min Octavio Sadler EFFICIENCY EXPERT-OPERATING TABLE ASSEMBLER Work Phone: [phone] [place] [address] 03-03-2023 10:36-0500 Respiratory rate 16 /min Octavio Sadler EFFICIENCY EXPERT-OPERATING TABLE ASSEMBLER Work Phone: [facility] 03-03-2023 10:36-0500 SaO2% (BldA) [Mass fraction] 98 % Octavio Sadler EFFICIENCY EXPERT-OPERATING TABLE ASSEMBLER Work Phone: [facility] 03-03-2023 10:36-0500 Systolic blood pressure 158 mm[Hg] Octavio Sadler EFFICIENCY EXPERT-OPERATING TABLE ASSEMBLER Work Phone: [facility] 01-27-2023 08:49-0500 Diastolic blood pressure 80 mm[Hg] Kristen [place] DO Work Phone: [facility] 01-27-2023 08:49-0500 Systolic blood pressure 138 mm[Hg] Kristen [place] DO Work Phone: [facility] 01-27-2023 08:31-0500 Body mass index (BMI) [Ratio] 34.86 kg/m2 Kristen [place] DO Work Phone: [facility] 01-27-2023 08:31-0500 Body weight 104.33 kg Kristen [place] DO Work Phone: [facility] 01-27-2023 08:31-0500 Heart rate 94 /min Kristen [place] DO Work Phone: [facility] 01-27-2023 08:31-0500 SaO2% (BldA) [Mass fraction] 96 % Kristen [place] DO Work Phone: [facility] 01-13-2023 08:19-0500 Body mass index (BMI) [Ratio] 34.71 kg/m2 Kristen [place] DO Work Phone: [facility] 01-13-2023 08:19-0500 Body weight 103.87 kg Kristen [place] DO Work Phone: [facility] 01-13-2023 08:19-0500 Diastolic blood pressure 62 mm[Hg] Kristen [place] DO Work Phone: [facility] 01-13-2023 08:19-0500 Heart rate 85 /min Kristen [place] DO Work Phone: [facility] 01-13-2023 08:19-0500 SaO2% (BldA) [Mass fraction] 97 % Kristen [place] DO Work Phone: [facility] 01-13-2023 08:19-0500 Systolic blood pressure 136 mm[Hg] Kristen [place] DO Work Phone: [facility] 11-13-2022 11:02-0400 Body height 173 cm Kristen [place] Other Phone: [facility] 11-13-2022 11:02-0400 Body temperature 97.52 [degF] Kristen [place] Other Phone: [facility] 11-13-2022 11:02-0400 Diastolic blood pressure 80 mm[Hg] Kristen [place] Other Phone: [facility] 11-13-2022 11:02-0400 Heart rate 79 /min Kristen [place] Other Phone: [facility] 11-13-2022 11:02-0400 SaO2% (BldA) [Mass fraction] 99 % Kristen [place] Other Phone: [facility] 11-13-2022 11:02-0400 Systolic blood pressure 147 mm[Hg] Kristen [place] Other Phone: [facility] 08-04-2022 11:00-0400 Body height 172.72 cm Kristen S [place] Work Phone: RC-Swvuynezlt-Upvmq [address] [place] Work Phone: 08-04-2022 11:00-0400 Body mass index (BMI) [Ratio] 34.42 kg/m2 Kristen S [place] Work Phone: GR-Rsryzujjqe-Hovqp [address] [place] Work Phone: 08-04-2022 11:00-0400 Body surface area Derived from formula 2.15 m2 Kristen S [place] Work Phone: FS-Gypclatchs-Fabce [address] Work Phone: 08-04-2022 11:00-0400 Body weight 102.69 kg Kristen S [place] Work Phone: IL-Xhxuipqypg-Cgktt nd [address] Work Phone: 08-04-2022 11:00-0400 Diastolic blood pressure 74 mm[Hg] Kristen S [place] Work Phone: OI-Usopmazogj-Ceyrj [address] [place] Work Phone: 08-04-2022 11:00-0400 Heart rate 85 /min Kristen S [place] Work Phone: PM-Pdesjeiqrb-Uulax [address] Work Phone: 08-04-2022 11:00-0400 SaO2% (BldA) [Mass fraction] 96 % Kristen S [place] Work Phone: DP-Pfzgdjjopw-Fliif nd [address] [place] Work Phone: 08-04-2022 11:00-0400 Systolic blood pressure 140 mm[Hg] Kristen S [place] Work Phone: NO-Dbwuriryhx-Cfwpf [address] [place] Work Phone: 07-01-2022 06:33-0400 Body temperature 97.34 [degF] Kristen [place] Other Phone: [facility] 07-01-2022 06:33-0400 Diastolic blood pressure 67 mm[Hg] Kristen [place] Other Phone: [facility] 07-01-2022 06:33-0400 Heart rate 89 /min Kristen [place] Other Phone: [facility] 07-01-2022 06:33-0400 Respiratory rate 18 /min Kristen [place] Other Phone: [facility] 07-01-2022 06:33-0400 SaO2% (BldA) [Mass fraction] 95 % Kristen [place] Other Phone: [facility] 07-01-2022 06:33-0400 Systolic blood pressure 147 mm[Hg] Kristen [place] Other Phone: [facility] 06-23-2022 13:06-0400 Body height 172.72 cm Kristen S [place] Work Phone: SX-Mjquzsilpy-Zdayr nd [address] [place] Work Phone: 06-23-2022 13:06-0400 Body mass index (BMI) [Ratio] 36.41 kg/m2 Kristen S [place] Work Phone: DC-Effpgdpggp-Ulcwx nd [address] [place] Work Phone: 06-23-2022 13:06-0400 Body surface area Derived from formula 2.21 m2 Kristen S [place] Work Phone: DK-Xplrbcryyd-Otqda nd [address] [place] Work Phone: 06-23-2022 13:06-0400 Body weight 108.61 kg Kristen S [place] Work Phone: ZJ-Yzxcvqrllj-Uhcil nd [address] Work Phone: 06-23-2022 13:06-0400 Diastolic blood pressure 72 mm[Hg] Kristen S [place] Work Phone: VH-Kjvlbhmhwt-Jxgmu nd [address] [place] Work Phone: 06-23-2022 13:06-0400 Heart rate 89 /min Kristen S [place] Work Phone: BU-Iehsyngiet-Zfmqz nd [address] [place] Work Phone: 06-23-2022 13:06-0400 SaO2% (BldA) [Mass fraction] 94 % Kristen S [place] Work Phone: JL-Owvgstwcgn-Zmdjh nd [address] [place] Work Phone: 06-23-2022 13:06-0400 Systolic blood pressure 136 mm[Hg] Kristen S [place] Work Phone: ZX-Fttsjuluov-Oefjx nd [address] [place] Work Phone: 06-16-2022 13:30-0400 Diastolic blood pressure 71 mm[Hg] Kristen [place] Other Phone: [facility] 06-16-2022 13:30-0400 Heart rate 85 /min Kristen [place] Other Phone: [facility] 06-16-2022 13:30-0400 Respiratory rate 16 /min Kristen [place] Other Phone: [facility] 06-16-2022 13:30-0400 SaO2% (BldA) [Mass fraction] 97 % Rkisten [place] Other Phone: [facility] 06-16-2022 13:30-0400 Systolic blood pressure 142 mm[Hg] Kristen [place] Other Phone: [facility] 06-16-2022 11:10-0400 Body height 172.7 cm Kristen [place] Other Phone: [facility] 06-16-2022 11:10-0400 Body temperature 96.8 [degF] Kristen [place] Other Phone: [facility] 06-16-2022 11:10-0400 Body weight 110 kg Kristen [place] Other Phone: [facility] 06-16-2022 08:25-0400 Body height 172.7 cm Kristen [place] DO Work Phone: [facility] 06-16-2022 08:25-0400 Body mass index (BMI) [Ratio] 36.8 kg/m2 Kristen [place] DO Work Phone: [facility] 06-16-2022 08:25-0400 Body weight 109.77 kg Kristen [place] DO Work Phone: [facility] 06-16-2022 08:25-0400 Diastolic blood pressure 64 mm[Hg] Kristen [place] DO Work Phone: [facility] 06-16-2022 08:25-0400 Heart rate 65 /min Kristen [place] DO Work Phone: [facility] 06-16-2022 08:25-0400 SaO2% (BldA) [Mass fraction] 97 % Kristen [place] DO Work Phone: [facility] 06-16-2022 08:25-0400 Systolic blood pressure 118 mm[Hg] Kristen [place] DO Work Phone: [facility] 03-17-2022 08:21-0500 Body height 172.72 cm Kristen S [place] [facility] Work Phone: 03-17-2022 08:21-0500 Body mass index (BMI) [Ratio] 36.34 kg/m2 Kristen S [place] Work Phone: [facility] [employer] [facility] Work Phone: 03-17-2022 08:21-0500 Body surface area Derived from formula 2.2 m2 Kristen S [place] Work Phone[facility] Work Phone: 03-17-2022 08:21-0500 Body weight 108.41 kg Kristen S [place] Work Phone: [facility] [employer] [facility] Work Phone: 03-17-2022 08:21-0500 Diastolic blood pressure 82 mm[Hg] Kristen S [place] Work Phone: [facility] [employer] [facility] Work Phone: 03-17-2022 08:21-0500 Heart rate 90 /min Kristen S [place] Work Phone[facility] [employer] [facility] Work Phone: 03-17-2022 08:21-0500 SaO2% (BldA) [Mass fraction] 98 % Kristen S [place] Work Phone: [facility] [employer] [facility] Work Phone: 03-17-2022 08:21-0500 Systolic blood pressure 162 mm[Hg] Kristen Caballero Work Phone: [facility] [facility] Work Phone: 07-15-2021 09:38-0400 Body height 172.72 cm Kristen Caballero Work Phone: [facility] [facility] Work Phone: 07-15-2021 09:38-0400 Body mass index (BMI) [Ratio] 34.26 kg/m2 Kristen Caballero Work Phone: [facility] Work Phone: 07-15-2021 09:38-0400 Body surface area Derived from formula 2.15 m2 Kristen Caballero Slack Phone: [facility] [facility] Work Phone: 07-15-2021 09:38-0400 Body weight 102.2 kg Kristen Caballero [employer] Phone: [facility] [employer] [facility] Work Phone: 07-15-2021 09:38-0400 Diastolic blood pressure 80 mm[Hg] Kristen Caballero [employer] Phone: [facility] [facility] Work Phone: 07-15-2021 09:38-0400 Heart rate 71 /min Kristen Caballero [employer] Phone: [facility] [facility] Work Phone: 07-15-2021 09:38-0400 SaO2% (BldA) [Mass fraction] 96 % Kristen Caballero [employer] Phone: [facility] [employer] Work Phone: 07-15-2021 09:38-0400 Systolic blood pressure 120 mm[Hg] Kristen Caballero Work Phone: [facility] Work Phone: 06-10-2021 13:06-0400 Body height 172.72 cm Kristen Caballero Work Phone: [facility] Work Phone: 06-10-2021 13:06-0400 Body mass index (BMI) [Ratio] 34.37 kg/m2 Kristen Caballero Work Phone: [facility] Work Phone: 06-10-2021 13:06-0400 Body surface area Derived from formula 2.15 m2 Kristen Caballero Work Phone: [facility] Work Phone: 06-10-2021 13:06-0400 Body weight 102.54 kg Kristen Caballero Work Phone: [facility] Work Phone: 06-10-2021 13:06-0400 Diastolic blood pressure 84 mm[Hg] Kristen Caballero Work Phone: [facility] Work Phone: 06-10-2021 13:06-0400 Heart rate 80 /min Kristen Caballero Work Phone: [facility] Work Phone: 06-10-2021 13:06-0400 SaO2% (BldA) [Mass fraction] 97 % Kristen Caballero Work Phone: [facility] Work Phone: 06-10-2021 13:06-0400 Systolic blood pressure 132 mm[Hg] Kristen Caballero Work Phone: [facility] Work Phone: 05-29-2021 08:34-0400 Body height 172.72 cm Kristen Mar[place] Work Phone: [facility] Work Phone: 05-29-2021 08:34-0400 Body mass index (BMI) [Ratio] 34.37 kg/m2 Kristen Mar[place] Work Phone: [facility] Work Phone: 05-29-2021 08:34-0400 Body surface area Derived from formula 2.15 m2 Kristen Marino [employer] Work Phone: [facility] Work Phone: 05-29-2021 08:34-0400 Body weight 102.54 kg Kristen Mar[place] Work Phone: [facility] Work Phone: 05-29-2021 08:34-0400 Diastolic blood pressure 76 mm[Hg] Kristen Mar[place] Work Phone: [facility] Work Phone: 05-29-2021 08:34-0400 Heart rate 90 /min Kristen Caballero Work Phone: [facility] Work Phone: 05-29-2021 08:34-0400 SaO2% (BldA) [Mass fraction] 96 % Kristen Caballero Work Phone: [facility] Work Phone: 05-29-2021 08:34-0400 Systolic blood pressure 126 mm[Hg] Kristen Caballero Work Phone: [facility] Work Phone: 03-04-2021 09:48-0500 Body height 172.72 cm Kristen [place] Work Phone: [facility] [address] DO Work Phone: 03-04-2021 09:48-0500 Body mass index (BMI) [Ratio] 35.81 kg/m2 Kristen Mar[place] Work Phone: [facility] [address] DO Work Phone: 03-04-2021 09:48-0500 Body surface area Derived from formula 2.19 m2 Kristen Marino [place] Work Phone: [facility] 205 DO Work Phone: 03-04-2021 09:48-0500 Body temperature 97.1 [degF] Kristen Marino [place] Work Phone: [facility] 205 DO Work Phone: 03-04-2021 09:48-0500 Body weight 106.82 kg Kristen Marino [place] Work Phone: [facility] 205 DO Work Phone: 03-04-2021 09:48-0500 Diastolic blood pressure 78 mm[Hg] Kristen Marino [place] Work Phone: [facility] [address] DO Work Phone: 03-04-2021 09:48-0500 Heart rate 98 /min Kristen [place] Work Phone: [facility] [address] DO Work Phone: 03-04-2021 09:48-0500 SaO2% (BldA) [Mass fraction] 95 % Kristen Marino [place] Work Phone: [facility] 205 DO Work Phone: 03-04-2021 09:48-0500 Systolic blood pressure 148 mm[Hg] Kristen Caballero Work Phone: [facility] [address] DO Work Phone: 02-27-2021 11:18-0500 Body height 172.72 cm Kristen Caballero Work Phone: [facility] Work Phone: 02-27-2021 11:18-0500 Body mass index (BMI) [Ratio] 35.61 kg/m2 Kristen Caballero Work Phone: [facility] Work Phone: 02-27-2021 11:18-0500 Body surface area Derived from formula 2.19 m2 Kristen Caballero Work Phone: [facility] Work Phone: 02-27-2021 11:18-0500 Body temperature 96.8 [degF] Kristen Caballero Work Phone: [facility] Work Phone: 02-27-2021 11:18-0500 Body weight 106.23 kg Kristen Caballero Work Phone: [facility] Work Phone: 02-27-2021 11:18-0500 Diastolic blood pressure 72 mm[Hg] Kristen Caballero Work Phone: [facility] Work Phone: 02-27-2021 11:18-0500 Heart rate 114 /min Kristen Caballero Work Phone: [facility] Work Phone: 02-27-2021 11:18-0500 SaO2% (BldA) [Mass fraction] 96 % Kristen Caballero Work Phone: [facility] Work Phone: 02-27-2021 11:18-0500 Systolic blood pressure 134 mm[Hg] Kristen Caballero Work Phone: [facility] Work Phone: 02-20-2021 08:37-0500 Body height 172.72 cm Kristen Caballero Work Phone: [facility] Work Phone: 02-20-2021 08:37-0500 Body mass index (BMI) [Ratio] 35.9 kg/m2 Kristen Caballero Work Phone: [facility] Work Phone: 02-20-2021 08:37-0500 Body surface area Derived from formula 2.19 m2 Kristen Caballero Work Phone: [facility] Work Phone: 02-20-2021 08:37-0500 Body temperature 97.3 [degF] Kristen Caballero Work Phone: [facility] Work Phone: 02-20-2021 08:37-0500 Body weight 107.11 kg Kristen Caballero Work Phone: [facility] Work Phone: 02-20-2021 08:37-0500 Diastolic blood pressure 88 mm[Hg] Kristen Caballero Work Phone: [facility] Work Phone: 02-20-2021 08:37-0500 Heart rate 100 /min Kristen Caballero Work Phone: [facility] Work Phone: 02-20-2021 08:37-0500 SaO2% (BldA) [Mass fraction] 95 % Kristen S [place] Work Phone: [facility] Work Phone: 02-20-2021 08:37-0500 Systolic blood pressure 146 mm[Hg] Kristen [place] Work Phone: [facility] Work Phone: 02-06-2021 07:58-0500 Body height 172.72 cm Kristen [place] Work Phone: [facility] Work Phone: 02-06-2021 07:58-0500 Body mass index (BMI) [Ratio] 35.43 kg/m2 Kristen [place] Work Phone: [facility] Work Phone: 02-06-2021 07:58-0500 Body surface area Derived from formula 2.18 m2 Kristen [place] Work Phone: [facility] Work Phone: 02-06-2021 07:58-0500 Body weight 105.69 kg Kristen Caballero Work Phone: [facility] Work Phone: 02-06-2021 07:58-0500 Diastolic blood pressure 98 mm[Hg] Kristen [place] Work Phone: [facility] Work Phone: 02-06-2021 07:58-0500 Systolic blood pressure 140 mm[Hg] Kristen S [place] Work Phone: [facility] Work Phone: 11-02-2020 15:17-0400 Body height 172.72 cm Kristen [place] Work Phone: [facility] [address] Work Phone: 11-02-2020 15:17-0400 Body mass index (BMI) [Ratio] 35.28 kg/m2 Kristen [place] Work Phone: [facility] [facility] Work Phone: 11-02-2020 15:17-0400 Body surface area Derived from formula 2.18 m2 Kristen [place] Work Phone: [facility] [facility] Work Phone: 11-02-2020 15:17-0400 Body temperature 97.9 [degF] Kristen [place] Work Phone: [facility] [facility] Work Phone: 11-02-2020 15:17-0400 Body weight 105.24 kg Kristen [place] Work Phone: [facility] [facility] Work Phone: 11-02-2020 15:17-0400 Diastolic blood pressure 86 mm[Hg] Kristen [place] Work Phone: [facility] [facility] Work Phone: 11-02-2020 15:17-0400 Heart rate 103 /min Kristen [place] Work Phone: [facility] Work Phone: 11-02-2020 15:17-0400 Systolic blood pressure 145 mm[Hg] Kristen [place] Work Phone: [facility] Work Phone: 10-31-2020 08:30-0400 Body height 172.72 cm Kristen [place] Work Phone: [facility] Work Phone: 10-31-2020 08:30-0400 Body mass index (BMI) [Ratio] 35.12 kg/m2 Kristen [place] Work Phone: [facility] Work Phone: 10-31-2020 08:30-0400 Body surface area Derived from formula 2.17 m2 Kristen Caballero Work Phone: [facility] Work Phone: 10-31-2020 08:30-0400 Body temperature 97.1 [degF] Kristen Caballero Work Phone: [facility] Work Phone: 10-31-2020 08:30-0400 Body weight 104.78 kg Kristen Caballero Work Phone: [facility] Work Phone: 10-31-2020 08:30-0400 Diastolic blood pressure 80 mm[Hg] Kristen Caballero Work Phone: [facility] Work Phone: 10-31-2020 08:30-0400 Heart rate 68 /min Kristen Caballero Work Phone: [facility] Work Phone: 10-31-2020 08:30-0400 SaO2% (BldA) [Mass fraction] 95 % Kristen Caballero Work Phone: [facility] Work Phone: 10-31-2020 08:30-0400 Systolic blood pressure 138 mm[Hg] Kristen Caballero Work Phone: [facility] Work Phone: 10-16-2020 15:56-0400 Body height 173.6 cm David Thomas MD Work Phone: [facility] 10-16-2020 15:56-0400 Body mass index (BMI) [Ratio] 34.57 kg/m2 David Thomas MD Work Phone: [facility] 10-16-2020 15:56-0400 Body temperature 97.11 [degF] David Thomas MD Work Phone: [facility] 10-16-2020 15:56-0400 Body weight 104.19 kg David Thomas MD Work Phone: [facility] 10-16-2020 15:56-0400 Diastolic blood pressure 70 mm[Hg] David Thomas MD Work Phone: [facility] 10-16-2020 15:56-0400 Heart rate 72 /min David Thomas MD Work Phone: [facility] 10-16-2020 15:56-0400 Systolic blood pressure 120 mm[Hg] David Thomas MD Work Phone: [facility] 10-11-2020 16:17-0400 Body height 172.72 cm Kristen S [employer] Work Phone: [facility] Work Phone: 10-11-2020 16:17-0400 Body mass index (BMI) [Ratio] 34.72 kg/m2 Kristen Jamila [employer] Work Phone: [facility] Work Phone: 10-11-2020 16:17-0400 Body surface area Derived from formula 2.16 m2 Kristen S [employer] Work Phone: [facility] Work Phone: 10-11-2020 16:17-0400 Body temperature 96.9 [degF] Kristen S [employer] Work Phone: [facility] Work Phone: 10-11-2020 16:17-0400 Body weight 103.59 kg Kristen Caballero Work Phone: [facility] [employer] [facility] Work Phone: 10-11-2020 16:17-0400 Diastolic blood pressure 82 mm[Hg] Kristen Caballero Work Phone: [facility] Work Phone: 10-11-2020 16:17-0400 Heart rate 74 /min Kristen Caballero Work Phone: [facility] Work Phone: 10-11-2020 16:17-0400 SaO2% (BldA) [Mass fraction] 95 % Kristen Caballero Slack Phone: [facility] Work Phone: 10-11-2020 16:17-0400 Systolic blood pressure 126 mm[Hg] Kristen Caballero Work Phone: [facility] Work Phone: 10-02-2020 11:36-0400 Body height 172.72 cm Kristen Caballero Slack Phone: [facility] Work Phone: 10-02-2020 11:36-0400 Body mass index (BMI) [Ratio] 34.27 kg/m2 Kristen Caballero Work Phone: [facility] Work Phone: 10-02-2020 11:36-0400 Body surface area Derived from formula 2.15 m2 Kristen Caballero Slack Phone: [facility] Work Phone: 10-02-2020 11:36-0400 Body temperature 97.7 [degF] Kristen Caballero Work Phone: [facility] [facility] Work Phone: 10-02-2020 11:36-0400 Body weight 102.23 kg Kristen Caballero Work Phone: [facility] Work Phone: 10-02-2020 11:36-0400 Diastolic blood pressure 70 mm[Hg] Kristen Caballero Work Phone: [facility] Work Phone: 10-02-2020 11:36-0400 Heart rate 72 /min Kristen Caballero Work Phone: [facility] Work Phone: 10-02-2020 11:36-0400 SaO2% (BldA) [Mass fraction] 97 % Kristen Caballero Work Phone: [facility] Work Phone: 10-02-2020 11:36-0400 Systolic blood pressure 116 mm[Hg] Kristen Caballero Work Phone: [facility] Work Phone: 08-29-2020 13:42-0400 Body height 172.72 cm Kristen Caballero Work Phone: [facility] 300 Work Phone: 08-29-2020 13:42-0400 Body mass index (BMI) [Ratio] 35.96 kg/m2 Kristen Caballero Work Phone: [facility] 300 Work Phone: 08-29-2020 13:42-0400 Body surface area Derived from formula 2.19 m2 Kristen Caballero Work Phone: [facility] 300 Work Phone: 08-29-2020 13:42-0400 Body temperature 97.7 [degF] Kristen Caballero Work Phone: [facility] 300 Work Phone: 08-29-2020 13:42-0400 Body weight 107.28 kg Kristen Caballero Work Phone: [facility] 300 Work Phone: 08-29-2020 13:42-0400 Diastolic blood pressure 80 mm[Hg] Kristen [place] Work Phone: [facility] 300 Work Phone: 08-29-2020 13:42-0400 Systolic blood pressure 126 mm[Hg] Kristen Caballero Work Phone: [facility] 300 Work Phone: 12-14-2019 09:57-0400 BMI (Body Mass Index) 33.51 kg/m2 Martinakallie Hale [facility] 300 Work Phone: 12-14-2019 09:57-0400 Body Temperature 97.1 [degF] Martinakallie Hale -[facility] 300 Work Phone: 12-14-2019 09:57-0400 Body weight 99.96 kg Martinakallie Hale [facility] 300 Work Phone: 12-14-2019 09:57-0400 BP Diastolic 70 mm[Hg] Martinakallie Gagelicha -[facility] 300 Work Phone: 12-14-2019 09:57-0400 BP Systolic 132 mm[Hg] Martinakallie Hale -[facility] 300 Work Phone: 12-14-2019 09:57-0400 BSA (Body Surface Area) 2.13 m2 Martina Toolicha -[facility] 300 Work Phone: 12-14-2019 09:57-0400 Height 172.72 cm Martina Hale [facility] 300 Work Phone: 12-08-2019 10:14-0400 BMI (Body Mass Index) 33.96 kg/m2 [facility] Work Phone: 12-08-2019 10:14-0400 Body Temperature 97.1 [degF] Martina [facility] 300 Work Phone: 12-08-2019 10:14-0400 Body weight 101.32 kg [facility] Work Phone: 12-08-2019 10:14-0400 BP Diastolic 70 mm[Hg] Martina [facility] 300 Work Phone: Comment on above: Location: LUE; 12-08-2019 10:14-0400 BP Systolic 124 mm[Hg] Martina [facility] Work Phone: Comment on above: Location: LUE; 12-08-2019 10:14-0400 BSA (Body Surface Area) 2.14 m2 [facility] Work Phone: 12-08-2019 10:14-0400 Height 172.72 cm [facility] Work Phone: 12-08-2019 10:14-0400 Pulse (Heart Rate) 81 /min [facility] Work Phone: 12-08-2019 10:14-0400 Pulse Oximetry 96 % [facility] 300 Work Phone: Encounters Encounter Date Encounter Type Care Provider Facility Start: 10-27-2024 End: 10-27-2024 Subsequent hospital visit by physician [facility] Comment on above: Pancreatic lesion (H HS-HCC) Start: 10-27-2024 End: 10-27-2024 Telemedicine consultation with patient Laura Martintchard PharmD Work Phone: [facility] Comment on above: Type 2 diabetes humberto itus with hyperglycemia, without long-term current use of insulin Start: 10-26-2024 End: 10-26-2024 Office outpatient visit 25 minutes [place] Work Phone: [facility] Comment on above: Acute left-sided tho racic back pain (Primary Dx); Pancreatic lesion (HHS-HCC); Claustrophobia Start: 10-26-2024 End: 10-26-2024 ambulatory [facility] Start: 10-20-2024 End: 10-20-2024 Subsequent hospital visit by physician Prosper White [address] [place] [address] Comment on above: Left upper quadrant abdominal pain Start: 10-20-2024 End: 10-20-2024 ambulatory [facility] Start: 10-19-2024 End: 10-19-2024 Office outpatient visit 15 minutes [place] Work Phone: [facility] Comment on above: Right upper quadrant abdominal pain (Primary Dx); Left upper quadrant abdominal pain Start: 10-19-2024 End: 10-19-2024 ambulatory [facility] Start: 10-03-2024 End: 10-03-[address] Xena Leonard DC [facility] Work Phone: Start: 10-03-2024 End: 10-03-[address] Kristen Caballero MD Work Phone: -[facility] Start: 09-29-2024 End: 09-29-2024 ambulatory LAURA LYNCH [facility] Start: 09-29-2024 End: 09-29-2024 Telemedicine consultation with patient Laura Martintchard PharmD Work Phone: [facility] [place] [facility] Comment on above: Type 2 diabetes humberto itus with hyperglycemia, without long-term current use of insulin (Primary Dx) Start: 09-27-2024 End: 09-27-2024 Office outpatient visit 25 minutes Kristen Caballero DO Work Phone: [facility] Comment on above: Vitamin D deficiency (Primary Dx); Secondary hypertension; Type 2 diabetes mellitus without complication, with long-term current use of insulin; Gastroesophageal reflux disease without esophagitis; Type 2 diabetes mellitus with hyperglycemia, without long-term current use of insulin; Hyperlipidemia LDL goal <100 Start: 09-27-2024 End: 09-27-2024 ambulatory [facility] Start: 09-05-2024 End: 09-05-[address] Xena Leonard DC -[facility] Work Phone: Start: 09-05-2024 End: 09-05-[address] Kristen Caballero MD Work Phone: [facility] Start: 08-08-2024 End: 08-08-[address] Xena Leonard DC -[facility] Work Phone: Start: 08-08-2024 End: 08-08-[address] Kristen Caballero MD Work Phone: [facility] Work Phone: Start: 08-04-2024 End: 08-04-2024 ambulatory LAURA LYNCH [facility] Start: 08-04-2024 End: 08-04-2024 Telemedicine consultation with patient Laura Martintchard PharmD Work Phone: [facility] Comment on above: Type 2 diabetes humberto itus without complication, with long-term current use of insulin Start: 07-11-2024 End: 07-11-[address] Xena Leonard DC -[facility] Work Phone: Start: 07-11-2024 End: 07-11-2024 ambulatory Kristen Caballero [facility] Start: 06-30-2024 End: 06-30-2024 ambulatory LAURA LYNCH [facility] Start: 06-30-2024 End: 06-30-2024 Telemedicine consultation with patient Laura Luigi Lynch PharmD Work Phone: [facility] Comment on above: Type 2 diabetes humberto itus without complication, with long-term current use of insulin Start: 06-22-2024 End: 06-22-2024 ambulatory [facility] Start: 06-13-2024 End: 06-13-[address] Xena Leonard DC -[facility] Work Phone: Start: 06-13-2024 End: 06-13-2024 ambulatory [facility] Start: 06-02-2024 End: 06-02-2024 ambulatory LAURA LYNCH [facility] Start: 06-02-2024 End: 06-02-2024 Telemedicine consultation with patient Laura Lynch PharmD Work Phone: [facility] Comment on above: Type 2 diabetes humberto itus without complication, with long-term current use of insulin Start: 05-23-2024 End: 05-23-2024 Office outpatient visit 15 minutes [facility] Work Phone: [facility] Comment on above: Acute non-recurrent maxillary sinusitis (Primary Dx); Encounter for screening mammogram for malignant neoplasm of breast Start: 05-23-2024 End: 05-23-2024 ambulatory [facility] Start: 05-17-2024 End: 05-17-[address] Xena Leonard DC -[facility] Work Phone: Start: 05-17-2024 End: 05-17-2024 ambulatory [facility] Start: 05-05-2024 End: 05-05-2024 ambulatory LAURA LYNCH [facility] Start: 05-05-2024 End: 05-05-2024 Telemedicine consultation with patient Laura Lynch PharmD Work Phone: [facility] Comment on above: Type 2 diabetes humberto itus without complication, with long-term current use of insulin (Multi) Start: 04-25-2024 End: 04-25-[address] Xena Leonard DC -[facility] Work Phone: Start: 04-25-2024 End: 04-25-2024 ambulatory [facility] Start: 04-07-2024 End: 04-07-2024 ambulatory LAURA LYNCH [facility] Start: 04-07-2024 End: 04-07-2024 Telemedicine consultation with patient Laura Lynch PharmD Work Phone: [facility] Comment on above: Type 2 diabetes humberto itus without complication, with long-term current use of insulin (Multi) Start: 03-29-2024 End: 03-29-2024 Office outpatient visit 25 minutes [facility] Work Phone: [facility] Comment on above: Pill dysphagia (Prim abimbola Dx); Secondary hypertension; Type 2 diabetes mellitus with hyperglycemia, without long-term current use of insulin; Hyperlipidemia LDL goal <100; Gastroesophageal reflux disease without esophagitis; Class 2 severe obesity with body mass index (BMI) of 35 to 39.9 with serious comorbidity; Bilateral carotid artery stenosis Start: 03-29-2024 End: 03-29-2024 ambulatory [facility] Start: 03-24-2024 End: 03-24-2024 Telemedicine consultation with patient Laura Lynch PharmD Work Phone: [facility] Comment on above: Type 2 diabetes humberto itus without complication, with long-term current use of insulin (Multi) Start: 03-24-2024 End: 03-24-2024 ambulatory LAURA LYNCH [facility] Start: 03-24-2024 End: 03-24-2024 ambulatory [facility] Start: 03-21-2024 End: 03-21-2024 ambulatory [facility] Start: 03-17-2024 End: 03-17-2024 ambulatory LAURA LYNCH [facility] Start: 03-17-2024 End: 03-17-2024 Telemedicine consultation with patient Laura Luigi Cris PharmD Work Phone: [facility] Comment on above: Type 2 diabetes humberto itus without complication, with long-term current use of insulin (Multi); Type 2 diabetes mellitus with hyperglycemia, without long-term current use of insulin Start: 03-10-2024 End: 03-10-2024 ambulatory Kristen Royal [facility] Start: 03-10-2024 End: 03-10-2024 ambulatory LAURA LYNCH [facility] Start: 03-10-2024 End: 03-10-2024 Telemedicine consultation with patient Laura Meyers Cris PharmD Work Phone: [facility] Comment on above: Type 2 diabetes humberto itus without complication, with long-term current use of insulin (Multi); Type 2 diabetes mellitus with hyperglycemia, without long-term current use of insulin Start: 03-03-2024 End: 03-03-2024 ambulatory LAURA LYNCH [facility] Start: 03-03-2024 End: 03-03-2024 Telemedicine consultation with patient Laura Meyers Cris PharmD Work Phone: [facility] Comment on above: Type 2 diabetes humberto itus without complication, with long-term current use of insulin (Multi) Start: 02-22-2024 End: 02-22-2024 ambulatory LAURA LYNCH [facility] Start: 02-22-2024 End: 02-22-2024 Telemedicine consultation with patient Laura Luigi Cris PharmD Work Phone: [facility] Comment on above: Type 2 diabetes humberto itus without complication, with long-term current use of insulin (Multi) Start: 02-16-2024 End: 02-16-2024 ambulatory LAURA Luigi CRIS [facility] Start: 02-16-2024 End: 02-16-2024 Telemedicine consultation with patient Laura Lynch PharmD Work Phone: [facility] Comment on above: Type 2 diabetes humberto itus without complication, with long-term current use of insulin (Multi) Start: 02-09-2024 End: 02-09-2024 ambulatory LAURA LYNCH [facility] Start: 02-09-2024 End: 02-09-2024 Telemedicine consultation with patient Laura Martintchard PharmD Work Phone: [facility] Comment on above: Type 2 diabetes humberto itus without complication, with long-term current use of insulin (Multi) Start: 02-08-2024 End: 02-08-2024 Office outpatient visit 15 minutes [facility] Work Phone: [facility] Comment on above: Abnormal urine odor (Primary Dx); Acute cystitis without hematuria; Secondary hypertension Start: 02-08-2024 End: 02-08-2024 ambulatory [facility] Start: 02-02-2024 End: 02-02-2024 ambulatory [facility] Luigi CRIS [facility] Start: 02-02-2024 End: 02-02-2024 Telemedicine consultation with patient Laura Martintchard PharmD Work Phone: [facility] Comment on above: Type 2 diabetes humberto itus without complication, with long-term current use of insulin (Multi) (Primary Dx); Type 2 diabetes mellitus with hyperglycemia, without long-term current use of insulin; Type 2 diabetes mellitus without complication, without long-term current use of insulin (Multi) Start: 01-26-2024 End: 01-26-2024 Telemedicine consultation with patient Laura Meyers Cris PharmD Work Phone: [facility] Comment on above: Type 2 diabetes humberto itus without complication, with long-term current use of insulin (Multi); Type 2 diabetes mellitus with hyperglycemia, without long-term current use of insulin Start: 01-26-2024 End: 01-26-2024 ambulatory LAURA Luigi LYNCH [facility] Start: 01-19-2024 End: 01-19-2024 ambulatory LAURA LYNCH [facility] Start: 01-19-2024 End: 01-19-2024 Telemedicine consultation with patient Laura Lynch PharmD Work Phone: [facility] Comment on above: Type 2 diabetes humberto itus without complication, with long-term current use of insulin (Multi) (Primary Dx); Type 2 diabetes mellitus with hyperglycemia, without long-term current use of insulin Start: 01-12-2024 End: 01-12-2024 ambulatory LAURA LYNCH [facility] Start: 01-12-2024 End: 01-12-2024 Telemedicine consultation with patient Laura Lynch PharmD Work Phone: [facility] Comment on above: Type 2 diabetes humberto itus with hyperglycemia, without long-term current use of insulin Start: 01-05-2024 End: 01-05-2024 ambulatory LAURA LYNCH [facility] Start: 01-05-2024 End: 01-05-2024 Telemedicine consultation with patient Laura Martintchard PharmD Work Phone: [facility] Comment on above: Type 2 diabetes humberto itus with hyperglycemia, without long-term current use of insulin Start: 12-29-2023 End: 12-29-2023 ambulatory LAURA LYNCH [facility] Start: 12-29-2023 End: 12-29-2023 Telemedicine consultation with patient Laura Lynch PharmD Work Phone: [facility] Comment on above: Type 2 diabetes humberto itus with hyperglycemia, without long-term current use of insulin Start: 12-22-2023 End: 12-22-2023 Telemedicine consultation with patient Laura Martintchard PharmD Work Phone: [facility] Comment on above: Type 2 diabetes humberto itus with hyperglycemia, without long-term current use of insulin Start: 12-22-2023 End: 12-22-2023 ambulatory LAURA LYNCH [facility] Start: 2023 End: 2023 Office outpatient visit 25 minutes Kristen Caballero DO Work Phone: [facility] Comment on above: Upper respiratory tr act infection, unspecified type (Primary Dx); 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, subsequent; Class 2 severe obesity with body mass index (BMI) of 35 to 39.9 with serious comorbidity; Bilateral carotid artery stenosis; Hyperlipidemia LDL goal <100; Secondary hypertension; Gastroesophageal reflux disease without esophagitis; Type 2 diabetes mellitus with hyperglycemia, with long-term current use of insulin Start: 2023 End: 2023 Patient encounter procedure Kristen Caballero DO Work Phone: [facility] Work Phone: Start: 2023 End: 2023 ambulatory [facility] Start: 2023 End: 2023 Encounter for general adult medical examination without abnormal findings [facility] Start: 12-17-2023 End: 12-17-2023 ambulatory [facility] Start: 12-15-2023 End: 12-15-2023 ambulatory LAURA Meyers CRIS [facility] Start: 12-15-2023 End: 12-15-2023 Telemedicine consultation with patient Laura Lynch PharmD Work Phone: [facility] Comment on above: Type 2 diabetes humberto itus with hyperglycemia, without long-term current use of insulin Start: 12-08-2023 End: 12-08-2023 ambulatory MALLORY BOLAÑOS [facility] Start: 12-08-2023 End: 12-08-2023 Telemedicine consultation with patient Mallory Martines Mami PharmD Work Phone: [facility] Comment on above: Type 2 diabetes humberto itus with hyperglycemia, without long-term current use of insulin Start: 12-07-2023 End: 12-07-2023 Patient encounter procedure Octavio Sadler EFFICIENCY EXPERT-OPERATING TABLE ASSEMBLER Work Phone: [facility] Comment on above: Acute cystitis with hematuria (Primary Dx); Dysuria Start: 12-07-2023 End: 12-07-2023 ambulatory [facility] Start: 12-01-2023 End: 12-01-2023 Telemedicine consultation with patient Laura Lynch PharmD Work Phone: [facility] Comment on above: Type 2 diabetes humberto itus with hyperglycemia, without long-term current use of insulin Start: 12-01-2023 End: 12-01-2023 ambulatory LAURA LYNCH [facility] Start: 11-23-2023 End: 11-23-2023 ambulatory LAURA LYNCH [facility] Start: 11-23-2023 End: 11-23-2023 Telemedicine consultation with patient Laurasourav Lynch PharmD Work Phone: [facility] Comment on above: Type 2 diabetes humberto itus with hyperglycemia, without long-term current use of insulin (Multi) Start: 11-19-2023 ambulatory [facility] Start: 11-16-2023 End: 11-16-2023 Telemedicine consultation with patient Laurasourav Lynch PharmD Work Phone: [facility] Comment on above: Type 2 diabetes humberto itus with hyperglycemia, without long-term current use of insulin (Multi) Start: 11-16-2023 End: 11-16-2023 ambulatory [facility] Start: 11-15-2023 End: 11-15-2023 Emergency department patient visit Afua Avila Facility:[facility] Start: 11-14-2023 End: 11-14-2023 Emergency department patient visit Tin Kelley Facility:[facility] Start: 11-05-2023 End: 11-05-2023 ambulatory [facility] Start: 11-03-2023 End: 11-03-2023 ambulatory LAURA LYNCH [facility] Start: 11-03-2023 End: 11-03-2023 Telemedicine consultation with patient Laura Lynch PharmD Work Phone: [facility] Comment on above: Type 2 diabetes humberto itus with hyperglycemia, without long-term current use of insulin (Multi) Start: 10-26-2023 End: 10-26-2023 ambulatory Kristen Caballero Facility:[facility] Start: 10-06-2023 End: 10-06-2023 ambulatory LAURA Luigi CRIS [facility] Start: 09-19-2023 End: 09-19-2023 ambulatory LOUIS MYERS STEELWORKER-C~[id number] Facility:[facility] Start: 09-11-2023 End: 09-11-2023 Office outpatient visit 25 minutes Kristen Caballero DO Work Phone: [facility] Comment on above: Secondary hypertensi on (Primary Dx); Gastroesophageal reflux disease without esophagitis; Type 2 diabetes mellitus with hyperglycemia, without long-term current use of insulin (Multi); Hyperlipidemia LDL goal <100; Hordeolum externum of left lower eyelid Start: 09-10-2023 End: 09-10-2023 ambulatory XENIA REYNOLDS Facility:[facility] Start: 09-10-2023 End: 09-10-2023 Patient encounter procedure Xenia Reynolds EFFICIENCY EXPERT.OPERATING TABLE ASSEMBLER Work Phone: OB/Gynecology Comment on above: Vulvar irritation (P rimary Dx) Start: 09-08-2023 End: 09-08-2023 Telemedicine consultation with patient Laura Martintchard PharmD Work Phone: [facility] Comment on above: Type 2 diabetes humberto itus with hyperglycemia, without long-term current use of insulin (Multi) (Primary Dx) Start: 06-26-2023 End: 06-26-2023 Telemedicine consultation with patient Trina Art PharmD Work Phone: [facility] Comment on above: Type 2 diabetes humberto itus with hyperglycemia, without long-term current use of insulin (Multi) (Primary Dx) Start: 05-29-2023 End: 05-29-2023 Telemedicine consultation with patient Trina Precious Art PharmD Work Phone: [facility] Comment on above: Type 2 diabetes humberto itus with hyperglycemia, without long-term current use of insulin (CMS/HCC) Start: 05-27-2023 End: 05-27-2023 Patient encounter procedure Octavio Sadler EFFICIENCY EXPERT-OPERATING TABLE ASSEMBLER Work Phone: [facility] Comment on above: Acute cystitis with hematuria (Primary Dx) Start: 05-12-2023 End: 02-08-2024 Patient encounter procedure Kristen Caballero DO Work Phone: [facility] Work Phone: Start: 05-12-2023 End: 05-12-2023 Office outpatient visit 25 minutes Kristen Caballero DO Work Phone: [facility] Comment on above: Encounter for screen ing mammogram for malignant neoplasm of breast (Primary Dx); Type 2 diabetes mellitus with hyperglycemia, without long-term current use of insulin (CMS/[facility]); Secondary hypertension; Hyperlipidemia LDL goal <100; Pill dysphagia Start: 04-22-2023 End: 04-22-2023 Office outpatient visit 15 minutes Bebe Cee EFFICIENCY EXPERT-OPERATING TABLE ASSEMBLER Work Phone: [facility] Comment on above: Sprain of left knee, initial encounter Start: 04-07-2023 End: 04-07-2023 Office outpatient visit 25 minutes Tyler Benjamin MD Work Phone: [facility] Comment on above: Atherosclerosis (Veronica tae Dx) Start: 03-30-2023 End: 03-30-2023 Office outpatient new 45 minutes Bebe Cee EFFICIENCY EXPERT-OPERATING TABLE ASSEMBLER Work Phone: [facility] Comment on above: Left knee pain, unsp ecified chronicity; Sprain of left knee, initial encounter Start: 03-27-2023 End: 03-27-2023 Subsequent hospital visit by physician Prosper X-Ray Fluoro [facility] Comment on above: Left knee pain, unsp ecified chronicity Start: 03-24-2023 End: 03-24-2023 ambulatory XENIA MCADAMSF Facility:[facility] Start: 03-03-2023 End: 03-03-2023 Patient encounter procedure Octavio Be Mary EFFICIENCY EXPERT-OPERATING TABLE ASSEMBLER Work Phone: [facility] Comment on above: Acute vaginitis (Veronica tae Dx) Start: 01-27-2023 End: 01-27-2023 Office outpatient visit 25 minutes Kristen S [place] DO Work Phone: [facility] Comment on above: Hyperlipidemia LDL g oal <100 (Primary Dx); Pill dysphagia; Vaginal yeast infection; Hepatic steatosis; Secondary hypertension Start: 01-15-2023 End: 01-15-2023 Subsequent hospital visit by physician Prosper Ultrasound [facility] Comment on above: Epigastric pain Start: 01-13-2023 End: 01-13-2023 Subsequent hospital visit by physician Prosper X-Ray 1 [facility] Comment on above: Other pneumothorax Start: 01-13-2023 End: 01-13-2023 Office outpatient visit 15 minutes Kristen S [place] DO Work Phone: [facility] Comment on above: Other pneumothorax ( Primary Dx); Epigastric pain Start: 11-13-2022 End: 11-13-2022 Emergency department patient visit Octavio Sadler [facility] Start: 08-04-2022 Office outpatient vi sit 25 minutes Kristen S [place] Work Phone: VP-Lkkemotunm-Rqfyjgv [address] [place] Work Phone: Start: 08-04-2022 ambulatory Tyler Benjamin [facility] ity:[id number] Start: 07-10-2022 Chart Update Kristen quevedo Work Phone: AN-Imtnbfvhij-Xcdrxmu [address] [place] Work Phone: Start: 07-09-[address] Tyler Benton to Anais Benjamin Facility:[id number] Start: 07-03-2022 Patient encounter procedure Tyler Benjamin [facility] Diagnostic Start: 07-01-2022 AUDIT Kristen quevedo Work Phone: UF-Gqfsswocnz[facility]oct[facility] [employer] Work Phone: Start: 07-01-2022 End: 07-01-2022 Emergency department patient visit Ayala Guajardo [facility] Emergency 13 Start: 06-27-2022 Chart Update Kristen quevedo Work Phone: [facility] [employer] Work Phone: Start: 06-26-[address] Tyler Benton to Manzosourav Luian Facility:[id number] Start: 06-23-2022 Office outpatient ne w 45 minutes Kristen Caballero Work Phone: HM-Kmksglhgdo-Egxotrs [employer] Work Phone: Start: 06-23-[address] Kristen Caballero Fa cility:[id number] Start: 06-16-2022 End: 06-16-2022 Emergency department patient visit Shahid Rai [facility] Emergency 16 Start: 06-16-2022 End: 06-16-2022 Office outpatient visit 25 minutes Kristen Caballero DO Work Phone: [facility] Comment on above: Secondary hypertensi on (Primary Dx); Type 2 diabetes mellitus with hyperglycemia, without long-term current use of insulin (CMS/[facility]); Hyperlipidemia LDL goal <100; Atypical chest pain; Class 2 severe obesity with body mass index (BMI) of 35 to 39.9 with serious comorbidity (CMS/HCC) Start: 04-24-2022 AUDIT Kristen quevedo [facility] Work Phone: Start: 04-01-2022 Rx Renewal Kristen quevedo Work Phone: [facility] Work Phone: Start: 03-17-2022 Office outpatient vi sit 25 minutes Kristen Marino [place] Work Phone: [facility] Work Phone: Start: 03-17-[address] Kristen Caballero cility:[id number] Start: 03-10-2022 Chart Update Kristen Jordan emy Work Phone: [facility] Work Phone: Start: 03-04-2022 AUDIT Kristen quevedo Work Phone: [facility] Work Phone: Start: 11-11-[address] Kristen Caballero cility:[id number] Start: 11-07-2021 Chart Update Kristen quevedo Work Phone: [facility] Work Phone: Start: 10-31-2021 Rx Renewal Kristen Marino Julian al Work Phone: [facility] Work Phone: Start: 09-30-2021 Rx Renewal Kristen Jordan al Work Phone: [facility] Work Phone: Start: 07-15-2021 Office outpatient vi sit 15 minutes Kristen Caballero Work Phone: [facility] Work Phone: Start: 07-10-2021 Rx Renewal Kristen Jordan al Work Phone: [facility] Work Phone: Start: 07-03-2021 Rx Renewal Kristen Jordan al Work Phone: [facility] Work Phone: Start: 07-01-2021 Chart Update Kristen Jordan al Work Phone: [facility] Work Phone: Start: 06-28-2021 Chart Update Kristen S Julian al Work Phone: -[facility] Work Phone: Start: 06-28-2021 HOLTER MON, Provider : SCIENTOLOGIST DIAGNOSTIC THERAPIST[facility], Status: Pen, Time: 11:00 AM Kristen S [place] Work Phone: [facility] Work Phone: Start: 06-28-2021 ECHO, Provider: LENNOX LOMBARDO ECHO 1,SMCECHO1, Status: Pen, Time: 10:00 AM Kristen S [place] Work Phone: [facility] Work Phone: Start: 06-28-2021 CAROTID, Provider: SCIENTOLOGIST VASCULAR LAB 2,SMCVASLAB2, Status: Pen, Time: 9:00 AM Kristen S [place] Work Phone: [facility] Work Phone: Start: 06-27-2021 Chart Update Kristen S Julian al Work Phone: [facility] Work Phone: Start: 06-10-2021 Office outpatient vi sit 25 minutes Kristen S [place] Work Phone: [facility] Work Phone: Start: 05-31-2021 PLSOXMONTR, Provider : SCIENTOLOGIST DIAGNOSTIC THERAPIST,[facility], Status: Pen, Time: 9:00 AM Kristen S [place] Work Phone: [facility] Work Phone: Start: 05-29-2021 Office outpatient vi sit 25 minutes Kristen S [place] Work Phone: [facility] Work Phone: Start: 05-03-2021 AUDIT Kristen S Julian al Work Phone: [facility] Work Phone: Start: 04-17-2021 Rx Renewal Kristen S Julian al Work Phone: [facility] Work Phone: Start: 03-07-2021 Chart Update Kristen S Julian al Work Phone: [facility] 205 DO Work Phone: Start: 03-06-2021 Chart Update Kristen S Julian al Work Phone: [facility] 205 DO Work Phone: Start: 03-04-2021 Office outpatient vi sit 15 minutes Kristen S [place] Work Phone: [facility] 205 DO Work Phone: Start: 02-28-2021 Rx Renewal Kristen Jamila Olmosy al Work Phone: [facility] Work Phone: Start: 02-20-2021 Office outpatient vi sit 15 minutes Kristen S [place] Work Phone: [facility] Work Phone: Start: 02-06-2021 Office outpatient vi sit 25 minutes Kristen S [place] Work Phone: [facility] Work Phone: Start: 02-03-2021 Chart Update Kristen S Julian al Work Phone: [facility] Work Phone: Start: 02-01-2021 AUDIT Kristen S Julian al Work Phone: [facility] Work Phone: Start: 12-04-2020 Chart Update Kristen quevedo Work Phone: YL-Hivlwuqqnvzosubj-Vp lwell 6 [facility] Work Phone: Start: 11-02-2020 Office consultation new/estab patient 40 min Kristen S [place] Work Phone: ZW-Sbpryupclkybipuo-[facility] [place] [address] [facility] Work Phone: Start: 10-31-2020 Office outpatient vi sit 25 minutes Kristen Caballero Work Phone: [facility] Work Phone: Start: 10-25-2020 Chart Update Kristen quevedo Work Phone: [facility] Work Phone: Start: 10-19-2020 AUDIT Kristen quevedo Work Phone: [facility] Work Phone: Start: 10-16-2020 ambulatory [facility] Start: 10-16-2020 End: 10-16-2020 Office outpatient visit 25 minutes David Thomas MD Work Phone: [facility] Comment on above: Type 2 diabetes humberto itus with hyperglycemia, without long-term current use of insulin Start: 10-11-2020 Office outpatient vi sit 15 minutes Kristen Marino [place] Work Phone: [facility] Work Phone: Start: 10-11-2020 Chart Update Kristen quevedo Work Phone: [facility] Work Phone: Start: 10-04-2020 Chart Update Kristen quevedo Work Phone: [facility] Work Phone: Start: 10-02-2020 Office outpatient vi sit 15 minutes Kristen Caballero Work Phone: -[facility] Work Phone: Start: 09-26-2020 End: 09-30-2020 ambulatory ALEXIA MEGAN [facility] Start: 09-21-2020 AUDIT Kristen quevedo Work Phone: [facility] Work Phone: Start: 09-07-2020 Patient encounter procedure Kristen Caballero Work Phone: [facility] Work Phone: Start: 08-31-2020 Chart Update Kristen quevedo Work Phone: [facility] Work Phone: Start: 08-29-2020 Office outpatient ne w 30 minutes Kristen Caballero Work Phone: -[facility] Work Phone: Start: 08-24-2020 AUDIT Kristen quevedo Work Phone: [facility] Work Phone: Start: 12-14-2019 Patient encounter procedure Martina Toolicha -[facility] Work Phone: Start: 12-08-2019 Patient encounter procedure Martina Toolicha [facility] 300 Work Phone: Start: 10-19-2019 Patient encounter procedure Martina Toolicha [facility] Work Phone: Start: 10-12-2019 Patient encounter procedure Martina Toolicha [facility] Work Phone: Start: 10-04-2019 Patient encounter procedure Martina Toolicha [facility] Work Phone: Start: 09-17-2018 End: 09-17-2018 Outside Orders Paras Myers Work Phone: [employer] Comment on above: Type 2 diabetes humberto itus with complication, with long-term current use of insulin (Primary Dx) Start: 05-07-2018 End: 05-08-2018 Patient encounter procedure Paras Myers Facility:[facility] Start: 01-20-2018 End: 01-21-2018 Patient encounter procedure Paras Myers Facility:[facility] Start: 09-11-2009 Patient encounter status Xenia Reynolds EFFICIENCY EXPERT.OPERATING TABLE ASSEMBLER Work Phone: [facility] Procedures Date Procedure Procedure Detail Performing Clinician Start: 10-19-2024 Blood count complete auto&auto difrntl wbc Kristen S [place] DO Work Phone: Start: 10-19-2024 Hepatic function panel Kristen S [place] DO Work Phone: Start: 10-19-2024 Lipase [Enzymatic activity/volume] in Serum or Plasma Kristen S [place] DO Work Phone: Start: 10-19-2024 Urnls dip stick/tabl et rgnt auto w/o microscopy Kristen S [place] DO Work Phone: Start: 06-22-2024 Mammography Laura snider PharmD Work Phone: Start: 02-08-2024 Urnls dip stick/tabl et rgnt auto w/o microscopy Kristen S [place] DO Work Phone: Start: 12-17-2023 Lipid 1996 panel - S judah or Plasma Kristen [place] DO Work Phone: Start: 12-07-2023 Urnls dip stick/tabl et rgnt non-auto w/o micrscp Octavio Sadler EFFICIENCY EXPERT-OPERATING TABLE ASSEMBLER Work Phone: Start: 06-04-2023 Mammography Trina wiseman PharmD Work Phone: Start: 05-27-2023 Urnls dip stick/tabl et rgnt non-auto w/o micrscp Octavio Sadler EFFICIENCY EXPERT-OPERATING TABLE ASSEMBLER Work Phone: Start: 01-15-2023 Us abdominal real ti me w/image limited Kristen Marino [place] DO Work Phone: Start: 01-13-2023 Radiologic exam ches t 2 views Kristen Marino [place] DO Work Phone: Start: 06-16-2022 End: 06-16-2022 EKG impression Shahid Mak Rai Start: 06-13-2022 Lipid 1996 panel - S judah or Plasma Kristen [place] DO Work Phone: Start: 05-16-2022 Mammography Kristen R oyal DO Work Phone: Start: 06-28-2021 Echocardiography Kellie ly S [place] Work Phone: Start: 11-30-2020 End: 11-30-2020 Colonoscopy Kristen Marino [place] Work Phone: Start: 10-16-2020 Gluc bld gluc mntr d ev cleared fda spec home use David Thomas MD Work Phone: Start: 10-19-2019 Albumin, Urine Spot Benji Hale Start: 10-19-2019 Basic metabolic 1998 panel - Serum or Plasma Martina Hale Start: 10-19-2019 Hemoglobin glycosyla millie a1c Martina Hale Arthroscopy of knee Kristen Caballero Work Phone: Comment on above: Left; section Martina le Comment on above: 8 c-sections; Cholecystectomy Martina Apraicio r H/O: section Hx of sect ion Dr. Kristen Caballero MD Work Phone: Comment on above: x 8 History of cholecystectomy Hx of cholecystectomy Dr. Kristen Caballero MD Work Phone: History of operative procedure on knee History of knee surgery Dr. Kristen Caballero MD Work Phone: History of tonsillectomy History of tonsi llectomy Dr. Kristen Caballero MD Work Phone: Total colonoscopy Kristen Caballero Work Phone: Plan of Treatment Date Care Activity Detail Author Start: 11-30-2030 Screening for malign ant neoplasm of colon [facility] Start: 01-12-2026 Glaucoma screening Diabetes: R etinopathy Screening [facility] Start: 08-15-2025 Glaucoma screening Diabetes: R etinopathy Screening [facility] Start: 06-22-2025 Screening for malign ant neoplasm of breast Mammogram [facility] Start: 03-21-2025 Urine screening for protein Diabetes: Urine Protein Screening [facility] Start: 12-28-2024 End: 09-27-2025 25-hydroxyvitamin D3 [Mass/volume] in Serum or Plasma Vitamin D 25-Hydroxy,Total (for eval of Vitamin D levels) Lab Routine Vitamin D deficiency Expected: 12/28/2024 (Approximate), Expires: 09/27/2025 [facility] Work Phone: Comment on above: Expected: 12/28/2024 (Approximate), Expires: 09/27/2025 Start: 12-28-2024 End: 09-27-2025 Basic metabolic 2000 panel - Serum or Plasma Basic Metabolic Panel Lab Routine Type 2 diabetes mellitus with hyperglycemia, without long-term current use of insulin Expected: 12/28/2024 (Approximate), Expires: 09/27/2025 [facility] Work Phone: Comment on above: Expected: 12/28/2024 (Approximate), Expires: 09/27/2025 Start: 12-28-2024 End: 09-27-2025 Hemoglobin A1c/Hemoglobin.total in Blood Hemoglobin A1C Lab Routine Type 2 diabetes mellitus with hyperglycemia, without long-term current use of insulin Expected: 12/28/2024 (Approximate), Expires: 09/27/2025 [facility] Work Phone: Comment on above: Expected: 12/28/2024 (Approximate), Expires: 09/27/2025 Start: 12-28-2024 End: 09-27-2025 Lipid 1996 panel - Serum or Plasma Lipid Panel Lab Routine Hyperlipidemia LDL goal <100 Expected: 12/28/2024 (Approximate), Expires: 09/27/2025 [facility] Work Phone: Comment on above: Expected: 12/28/2024 (Approximate), Expires: 09/27/2025 Start: 12-28-2024 End: 12-28-2024 Patient encounter procedure 12/28/2024 10:00 AM EDT Office Visit [place] [address] [phone] Kristen Caballero DO [address] [address] [facility] Start: 2024 Medicare Annual Wellness Visit Medicare Annual Wellness Visit (AWV) [facility] Start: 12-17-2024 Hemoglobin A1c measurement Diabetes: Hemoglobin A1C [facility] Start: 12-16-2024 Lipid panel Lipid Panel [facility] Start: 11-24-2024 End: 11-24-2024 Telemedicine consultation with patient 11/24/2024 9:20 AM EDT Telemedicine [facility] [address] [phone] Laura Lynch, PharmD [address] [facility] [address] [place] [id number] [facility] Start: 11-21-2024 End: 11-21-2024 Patient encounter procedure 11/21/2024 8:20 AM EDT Office Visit [address] [phone] Kristen Caballero DO [address] [address] [facility] Start: 11-11-2024 Glaucoma screening Diabetes: R etinopathy Screening [facility] Start: 10-31-2024 Influenza vaccination [facility] Start: 10-27-2024 End: 10-27-2024 Patient encounter procedure 10/27/2024 7:30 PM EDT [facility]ointment [facility] [phone] [facility] Start: 10-27-2024 End: 10-27-2024 Telemedicine consultation with patient 10/27/2024 9:20 AM EDT Telemedicine [facility] [address] [place] [phone] Laura Lynch, PharmD [address] [facility] [address] [place] [address] [facility] Start: 10-26-2024 End: 10-26-2025 MR Pancreas WO and W contrast IV MRCP pancreas w and wo IV contrast Imaging Routine Pancreatic lesion (HHS-HCC) Expected: 10/26/2024 (Approximate), Expires: 10/26/2025 [facility] Work Phone: Comment on above: Expected: 10/26/2024 (Approximate), Expires: 10/26/2025 Start: 10-26-2024 End: 10-26-2025 XR Thoracic spine 3 Views XR thoracic spine 3 views Imaging Routine Acute left-sided thoracic back pain Expected: 10/26/2024, Expires: 10/26/2025 [facility] Service Area Work Phone: Comment on above: Expected: 10/26/2024 , Expires: 10/26/2025 Start: 10-26-2024 End: 10-26-2024 Patient encounter procedure 10/26/2024 10:40 AM EDT Office Visit [address] [phone] Kristen Caballero DO [address] [place] [address] [facility] Start: 10-20-2024 End: 10-20-2024 Patient encounter procedure 10/20/2024 3:30 PM EDT Appointment [address] [phone] [facility] Start: 10-19-2024 End: 10-19-2025 CT Abdomen and Pelvis W contrast IV CT abdomen pelvis w IV contrast Imaging Routine Left upper quadrant abdominal pain Expected: 10/19/2024 (Approximate), Expires: 10/19/2025 [facility] Service Area Work Phone: Comment on above: Expected: 10/19/2024 (Approximate), Expires: 10/19/2025 Start: 09-29-2024 End: 09-29-2024 Telemedicine consultation with patient 09/29/2024 9:20 AM EDT Telemedicine [facility] [address] [place] [phone] Laura Lynch, PharmD [address] [place] [address] [facility] Start: 09-27-2024 End: 09-27-2024 Patient encounter procedure 09/27/2024 9:20 AM EDT Office Visit [address] [phone] Kristen Caballero, [address] [place] [address] [facility] Start: 09-26-2024 End: 03-29-2025 Basic metabolic 2000 panel - Serum or Plasma Basic Metabolic Panel Lab Routine Type 2 diabetes mellitus with hyperglycemia, without long-term current use of insulin Expected: 09/26/2024 (Approximate), Expires: 03/29/2025 [facility] Area Work Phone: Comment on above: Expected: 09/26/2024 (Approximate), Expires: 03/29/2025 Start: 09-26-2024 End: 03-29-2025 Hemoglobin A1c/Hemoglobin.total in Blood Hemoglobin A1C Lab Routine Type 2 diabetes mellitus with hyperglycemia, without long-term current use of insulin Expected: 09/26/2024 (Approximate), Expires: 03/29/2025 [facility] Work Phone: Comment on above: Expected: 09/26/2024 (Approximate), Expires: 03/29/2025 Start: 08-04-2024 End: 08-04-2024 Telemedicine consultation with patient 08/04/2024 9:20 AM EDT Telemedicine [facility] [address] [place] [phone] Laura Lynch, PharmD [address] [place] [address] [facility] Start: 06-30-2024 End: 06-30-2024 Telemedicine consultation with patient 06/30/2024 9:20 AM EDT Telemedicine [facility] [address] [place] [phone] Laura Lynch, PharmD [address] [place] [address] [facility] Start: 06-23-2024 End: 07-23-2025 DBT Breast - bilateral BI mammo bilateral screening tomosynthesis Imaging Routine Encounter for screening mammogram for malignant neoplasm of breast Expected: 06/23/2024 (Approximate), Expires: 07/23/2025 [facility] Service Area Work Phone: Comment on above: Expected: 06/23/2024 (Approximate), Expires: 07/23/2025 Start: 06-19-2024 Hemoglobin A1c measurement Diabetes: Hemoglobin A1C [facility] Start: 06-03-2024 Screening for malign ant neoplasm of breast Mammogram [facility] Start: 06-02-2024 End: 06-02-2024 Telemedicine consultation with patient [facility] Start: 05-05-2024 End: 05-05-2024 Telemedicine consultation with patient 05/05/2024 9:20 AM EST Telemedicine [facility] [address] [place] [phone] Laura Lynch, PharmD [address] [place] [address] [facility] Start: 04-07-2024 End: 04-07-2024 Telemedicine consultation with patient 04/07/2024 9:20 AM EST Telemedicine [facility] [address] [place] [phone] Laura Lynch, PharmD [address] [place] [address] [facility] Start: 04-05-2024 End: 04-05-2024 Patient encounter procedure 04/05/2024 10:15 AM EST Office Visit [facility] [address] [place] [address] Tyler Thompson MD [address], [address] [place] [address] [facility] Start: 03-29-2024 End: 03-29-2024 Patient encounter procedure 03/29/2024 8:00 AM EST Office Visit [place] [address] [phone] Kristen Caballero, [facility] [address] [address] [facility] Start: 03-24-2024 End: 03-24-2024 Telemedicine consultation with patient 03/24/2024 9:20 AM EST Telemedicine [facility] [address] [place] [phone] Laura Lynch, PharmD [address] [place] [address] [facility] Start: 03-22-2024 End: 12-20-2024 Basic metabolic 2000 panel - Serum or Plasma Basic Metabolic Panel Lab Routine Type 2 diabetes mellitus with hyperglycemia, with long-term current use of insulin Expected: 03/22/2024 (Approximate), Expires: 12/20/2024 [facility] Service Area Work Phone: Comment on above: Expected: 03/22/2024 (Approximate), Expires: 12/20/2024 Start: 03-22-2024 End: 12-20-2024 Hemoglobin A1c/Hemoglobin.total in Blood Hemoglobin A1C Lab Routine Type 2 diabetes mellitus with hyperglycemia, with long-term current use of insulin Expected: 03/22/2024 (Approximate), Expires: 12/20/2024 [facility] Work Phone: Comment on above: Expected: 03/22/2024 (Approximate), Expires: 12/20/2024 Start: 03-18-2024 Hemoglobin A1c measurement Diabetes: Hemoglobin A1C [facility] Start: 03-17-2024 End: 03-17-2024 Telemedicine consultation with patient 03/17/2024 9:20 AM EST Telemedicine [facility] [address] [phone] Laura Lynch, PharmD [address] [place] [address] [facility] Start: 03-15-2024 End: 03-15-2024 Patient encounter procedure 03/15/2024 9:40 AM EST Office Visit [place] [address] [phone] Kristen Caballero DO [address] [address] [facility] Start: 03-10-2024 End: 03-10-2025 Microalbumin/Creatinine [Mass Ratio] in Urine Albumin-Creatinine Ratio, Urine Random Lab Routine Type 2 diabetes mellitus without complication, with long-term current use of insulin (Multi) Expected: 03/10/2024 (Approximate), Expires: 03/10/2025 [facility] Service Area Work Phone: Comment on above: Expected: 03/10/2024 (Approximate), Expires: 03/10/2025 Start: 03-10-2024 End: 03-10-2024 Telemedicine consultation with patient 03/10/2024 9:20 AM EST Telemedicine [facility] [address] [place] [phone] Laura Lynch, PharmD [address] [place] [address] [facility] Start: 03-06-2024 Hemoglobin A1c measurement HbA1C [facility] Start: 03-03-2024 End: 03-03-2024 Telemedicine consultation with patient 03/03/2024 9:20 AM EST Telemedicine [facility] [address] [place] [phone] Laura Lynch, PharmD [address] [place], [place] [phone] [facility] Start: 02-22-2024 End: 02-22-2024 Telemedicine consultation with patient 02/22/2024 9:20 AM EST Telemedicine [facility] [address] [place] [phone] Laura Lynch, PharmD [address] [place] [address] [facility] Start: 02-16-2024 End: 02-16-2024 Telemedicine consultation with patient 02/16/2024 9:20 AM EST Telemedicine [facility] [address] [place] [phone] Laura Lynch, PharmD [address] [place] [address] [facility] Start: 02-15-2024 End: 02-15-2024 Patient encounter procedure 02/15/2024 9:00 AM EST Office Visit [facility] [address] [phone] Kristen Caballero DO [address] [address] [facility] Start: 02-09-2024 End: 02-09-2024 Telemedicine consultation with patient 02/09/2024 9:20 AM EST Telemedicine [facility] [address] [place] [phone] Laura Lynch, PharmD [address] [place] [address] [facility] Start: 02-02-2024 End: 02-02-2024 Telemedicine consultation with patient 02/02/2024 9:20 AM EST Telemedicine [facility] [address] [place] [phone] Laura Lynch, PharmD [address] [place] [address] [facility] Start: 01-26-2024 End: 01-26-2024 Telemedicine consultation with patient 01/26/2024 9:20 AM EST Telemedicine [facility] [address] [place] [phone] Laura Lynch, PharmD [address] [place] [address] [facility] Start: 01-19-2024 End: 01-19-2024 Telemedicine consultation with patient 01/19/2024 9:20 AM EST Telemedicine [facility] [address] [place] [phone] Laura Lynch, PharmD [address] [place] [address] [facility] Start: 01-12-2024 End: 01-12-2024 Telemedicine consultation with patient 01/12/2024 9:20 AM EST Telemedicine [facility] [address] [place] [phone] Laura Lynch, PharmD [address] [place] [address] [facility] Start: 01-05-2024 End: 01-05-2024 Telemedicine consultation with patient 01/05/2024 9:20 AM EST Telemedicine [facility] [address] [place] [phone] Laura Lynch, PharmD [address] [place] [address] [facility] Start: 01-04-2024 End: 12-20-2024 Basic metabolic 2000 panel - Serum or Plasma Basic Metabolic Panel Lab Routine Secondary hypertension Expected: 01/04/2024 (Approximate), Expires: 12/20/2024 [facility] Work Phone: Comment on above: Expected: 01/04/2024 (Approximate), Expires: 12/20/2024 Start: 01-04-2024 End: 01-04-2024 Patient encounter procedure 01/04/2024 8:40 AM EST Office Visit [place] [address] [phone] Kristen Caballero DO [facility] [address] [address] [facility] Start: 12-29-2023 End: 12-29-2023 Telemedicine consultation with patient 12/29/2023 9:20 AM EDT Telemedicine [facility] [address] [place] [phone] Laura Lynch, PharmD [address] [place] [address] [facility] Start: 12-22-2023 Screening for osteoporosis Bone Density Scan [facility] Start: 12-22-2023 End: 12-22-2023 Telemedicine consultation with patient 12/22/2023 9:30 AM EDT Telemedicine [facility] [address] [place] [phone] Laura Lynch, PharmD [address] [place] [address] [facility] Start: 2023 End: 2023 Patient encounter procedure [facility] Start: 12-15-2023 End: 12-15-2023 Telemedicine consultation with patient [facility] Start: 12-12-2023 End: 09-10-2024 Basic metabolic 2000 panel - Serum or Plasma Basic Metabolic Panel Lab Routine Secondary hypertension Expected: 12/12/2023 (Approximate), Expires: 09/10/2024 [facility] Service Area Work Phone: Comment on above: Expected: 12/12/2023 (Approximate), Expires: 09/10/2024 Start: 12-12-2023 End: 09-10-2024 Hemoglobin A1c/Hemoglobin.total in Blood Hemoglobin A1C Lab Routine Type 2 diabetes mellitus with hyperglycemia, without long-term current use of insulin (Multi) Expected: 12/12/2023 (Approximate), Expires: 09/10/2024 [facility] Work Phone: Comment on above: Expected: 12/12/2023 (Approximate), Expires: 09/10/2024 Start: 12-12-2023 End: 09-10-2024 Lipid 1996 panel - Serum or Plasma Lipid Panel Lab Routine Hyperlipidemia LDL goal <100 Expected: 12/12/2023 (Approximate), Expires: 09/10/2024 [facility] Work Phone: Comment on above: Expected: 12/12/2023 (Approximate), Expires: 09/10/2024 Start: 12-08-2023 End: 12-08-2023 Telemedicine consultation with patient [facility] Start: 12-05-2023 Hemoglobin A1c measurement Diabetes: Hemoglobin A1C [facility] Start: 12-01-2023 End: 12-01-2023 Telemedicine consultation with patient 12/01/2023 9:30 AM EDT Telemedicine [facility] [address] [place] [address] [facility] Start: 11-23-2023 End: 11-23-2023 Telemedicine consultation with patient 11/23/2023 9:30 AM EDT Telemedicine [facility] [address] [place] [address] [facility] Start: 11-12-2023 Glaucoma screening Diabetes: R etinopathy Screening [facility] Start: 11-01-2023 COVID-19 Vaccine ( season) COVID-19 Vaccine ( season) [facility] Start: 11-01-2023 COVID-19 Vaccine ( season) COVID-19 Vaccine ( season) [facility] Start: 11-01-2023 Influenza vaccination [facility] Start: 10-06-2023 End: 10-06-2023 Telemedicine consultation with patient 10/06/2023 9:30 AM EDT Telemedicine [facility] [address] [place] [address] [facility] Start: 09-24-2023 End: 09-24-2023 Patient encounter procedure 09/24/2023 2:00 PM EDT Office Visit [facility] [address] [place] [address] Kin Swift, DO [address] [facility], [address] [place] [address] [facility] Start: 09-11-2023 End: 09-11-2023 Patient encounter procedure 09/11/2023 11:00 AM EDT Office Visit [facility] [address] [place] [phone] Kristen Caballero DO [address] [facility] [place] [address] [facility] Start: 08-12-2023 End: 05-11-2024 Basic metabolic 2000 panel - Serum or Plasma Basic Metabolic Panel Lab Routine Type 2 diabetes mellitus with hyperglycemia, without long-term current use of insulin ([facility]) Expected: 08/12/2023 (Approximate), Expires: 05/11/2024 [facility] Work Phone: Comment on above: Expected: 08/12/2023 (Approximate), Expires: 05/11/2024 Start: 08-12-2023 End: 05-11-2024 Hemoglobin A1c/Hemoglobin.total in Blood Hemoglobin A1C Lab Routine Type 2 diabetes mellitus with hyperglycemia, without long-term current use of insulin (CMS/HCC) Expected: 08/12/2023 (Approximate), Expires: 05/11/2024 [facility] Work Phone: Comment on above: Expected: 08/12/2023 (Approximate), Expires: 05/11/2024 Start: 08-11-2023 End: 08-11-2023 Patient encounter procedure 08/11/2023 8:40 AM EDT Office Visit [facility] [address] [place] [phone] Kristen Caballero DO [address] [facility] [place] [address] [facility] Start: 08-08-2023 Hemoglobin A1c measurement Diabetes: Hemoglobin A1C [facility] Start: 06-14-2023 Hepatitis B surface antibody level LDL Cholesterol [facility] Start: 06-14-2023 Lipid panel Lipid Panel [facility] Start: 05-29-2023 End: 05-29-2023 Telemedicine consultation with patient 05/29/2023 9:00 AM EDT [facility]icine [facility] [address] [place] [phone] [facility] Start: 05-17-2023 Screening for malign ant neoplasm of breast Mammogram [facility] Start: 05-12-2023 End: 07-11-2024 DBT Breast - bilateral BI mammo bilateral screening tomosynthesis Imaging Routine Encounter for screening mammogram for malignant neoplasm of breast Expected: 05/12/2023 (Approximate), Expires: 07/11/2024 [facility] Service Area Work Phone: Comment on above: Expected: 05/12/2023 (Approximate), Expires: 07/11/2024 Start: 05-12-2023 End: 05-12-2023 Patient encounter procedure 05/12/2023 8:40 AM EDT Office Visit [facility] [address] [place] [phone] Kristen Caballero DO [address] [facility] [place] [address] [facility] Start: 04-22-2023 End: 04-22-2023 Patient encounter procedure 04/22/2023 8:15 AM EST Office Visit [facility] [address] [facility] [address] [place] [address] Bebe Cee, EFFICIENCY EXPERT-OPERATING TABLE ASSEMBLER [address] [facility], [address] [place] [address] [facility] Start: 04-13-2023 End: 04-13-2023 Patient encounter procedure 04/13/2023 8:40 AM EST Office Visit [facility] [address] [place] [phone] Kristen Caballero DO [address] [facility] [place] [address] [facility] Start: 04-07-2023 End: 04-07-2023 Patient encounter procedure 04/07/2023 10:30 AM EST Office Visit [facility] Medical Office [facility] [address] [place] [address] Tyler Thompson MD [address] [place] [address] [facility] Start: 03-30-2023 End: 03-30-2023 Patient encounter procedure 03/30/2023 10:00 AM EST Office Visit [facility] [address] [facility] [address] [place] [address] Bebe Cee, EFFICIENCY EXPERT-OPERATING TABLE ASSEMBLER [address] [facility] [address] [place] [address] [facility] Start: 03-26-2023 End: 03-26-2024 XR Knee - left 4 Views XR knee left 4+ views Imaging Routine Left knee pain, unspecified chronicity Expected: 03/26/2023, Expires: 03/26/2024 [facility] Service Area Work Phone: Comment on above: Expected: 03/26/2023 , Expires: 03/26/2024 Start: 03-18-2023 End: 03-18-2023 Patient encounter procedure 03/18/2023 8:20 AM EST Office Visit [facility] [address] [place] [phone] Kristen Caballero DO [address] [facility] [place] [address] [facility] Start: 03-17-2023 End: 03-17-2023 Patient encounter procedure 03/17/2023 10:15 AM EST Office Visit [facility] Office [address] [place] [address] Tyler Thompson MD [address] [place], [place] [address] Ricky Guerrero, [address] [address] [facility] Office [facility] Start: 03-02-2023 Behavioral Health Screening Behavioral Health Screening [facility] Start: 02-10-2023 End: 02-10-2023 Patient encounter procedure 02/10/2023 10:00 AM EST Office Visit [facility] Office [facility] [address] [place] [address] Tyler Thompson MD [address] [place], [place] [address] [facility], [address] [phone] [facility] Office [facility] Start: 02-02-2023 FUV, Provider: Tyler Thompson, Status: Pen, Time: 10:30 AM FUV, Provider: Tyler Thompson, Status: Pen, Time: 10:30 AM [id number] d [address] Work Phone: Start: 02-02-2023 Patient encounter procedure [facility] Start: 02-02-2023 End: 02-02-2023 Patient encounter procedure 02/02/2023 10:30 AM EST Office Visit [facility] [address] [place] [address] Tyler Thompson MD [address] [place] [address] [address], [address] [place] [address] [facility] Start: 01-27-2023 End: 01-27-2023 Patient encounter procedure 01/27/2023 8:40 AM EST Office Visit [facility] [address] [place] [phone] Kristen Caballero DO [address] [facility] [place] [address] [facility] Start: 01-15-2023 End: 01-15-2023 Patient encounter procedure 01/15/2023 8:00 AM EST Appointment [facility] [address] [place] [address] [facility] Start: 01-13-2023 End: 01-14-2024 Hepatic function 2000 panel - Serum or Plasma Hepatic Function Panel Lab Routine Epigastric pain Expected: 01/13/2023 (Approximate), Expires: 01/14/2024 [facility] Work Phone: Comment on above: Expected: 01/13/2023 (Approximate), Expires: 01/14/2024 Start: 01-13-2023 End: 01-14-2024 Lipase [Enzymatic activity/volume] in Serum or Plasma Lipase Lab Routine Epigastric pain Expected: 01/13/2023 (Approximate), Expires: 01/14/2024 [facility] Work Phone: Comment on above: Expected: 01/13/2023 (Approximate), Expires: 01/14/2024 Start: 01-13-2023 End: 01-14-2024 US Liver limited US abdomen limited liver Imaging Routine Epigastric pain Expected: 01/13/2023 (Approximate), Expires: 01/14/2024 [facility] Work Phone: Comment on above: Expected: 01/13/2023 (Approximate), Expires: 01/14/2024 Start: 01-13-2023 End: 01-14-2024 XR Chest 2 Views [facility] Service Area Work Phone: Comment on above: Expected: 01/13/2023 (Approximate), Expires: 01/14/2024 Once for 1 Occurrenc es starting 01/13/2023 until 01/13/2023 Start: 12-23-2022 Hemoglobin A1c measurement Diabetes: Hemoglobin A1C [facility] Start: 10-31-2022 COVID-19 Vaccine () COVID-19 Vaccine () [facility] Start: 10-31-2022 Influenza vaccination [facility] Start: 09-15-2022 End: 06-17-2023 Hemoglobin A1c/Hemoglobin.total in Blood Hemoglobin A1C Lab Routine Type 2 diabetes mellitus with hyperglycemia, without long-term current use of insulin ([facility]) Expected: 09/15/2022 (Approximate), Expires: 06/17/2023 [facility] Service Area Work Phone: Comment on above: Expected: 09/15/2022 (Approximate), Expires: 06/17/2023 Start: 09-12-2022 Hemoglobin A1c measurement Diabetes: Hemoglobin A1C [facility] Start: 08-04-2022 FUV, Provider: Tyler Thompson, Status: Pen, Time: 11:00 AM FUV, Provider: Tyler Thompson, Status: Pen, Time: 11:00 AM [id number] d [employer] Work Phone: Start: 08-04-2022 Patient encounter procedure [facility] Start: 07-09-2022 STRESS NUC, Provider : JONATHAN LOMBARDO STRESS 2,SMCSTRESS2, Status: Pen, Time: 9:00 AM STRESS NUC, Provider: JONATHAN CIFUENTESI STRESS 2,SMCSTRESS2, Status: Pen, Time: 9:00 AM [id number]-Neujsa d [address] [employer] Work Phone: Start: 07-03-2022 STRESS NUC, Provider : JONATHAN CIFUENTESI STRESS 2,SMCSTRESS2, Status: Pen, Time: 8:00 AM STRESS NUC, Provider: JONATHAN CIFUENTESI STRESS 2,SMCSTRESS2, Status: Pen, Time: 8:00 AM [id number] Work Phone: Start: 07-03-2022 Patient encounter procedure [facility] Start: 06-16-2022 EPV, Provider: Kristen Caballero, Status: Pen, Time: 8:20 AM EPV, Provider: Krsiten Caballero, Status: Pen, Time: 8:20 AM -[facility] Work Phone: Start: 03-17-2022 EPV, Provider: Kristen Caballero, Status: Pen, Time: 8:20 AM EPV, Provider: Kristen Caballero, Status: Pen, Time: 8:20 AM [facility] Work Phone: Start: 11-11-2021 EPV, Provider: Kristen Caballero, Status: Pen, Time: 8:20 AM EPV, Provider: Kristen Caballero, Status: Pen, Time: 8:20 AM [facility] Work Phone: Start: 07-15-2021 EPV, Provider: Kristen Caballero, Status: Pen, Time: 9:40 AM EPV, Provider: Kristen Caballero, Status: Pen, Time: 9:40 AM [facility] Work Phone: Start: 07-08-2021 EPV, Provider: Kristen Caballero, Status: Pen, Time: 8:20 AM EPV, Provider: Kristen Caballero, Status: Pen, Time: 8:20 AM [facility] Work Phone: Start: 07-01-2021 EPV, Provider: Kristen Caballero, Status: Pen, Time: 8:00 AM EPV, Provider: Kristen Caballero, Status: Pen, Time: 8:00 AM [facility] Work Phone: Start: 06-28-2021 HOLTER MON, Provider : SCIENTOLOGIST DIAGNOSTIC THERAPIST[facility], Status: Pen, Time: 11:00 AM [facility], Provider: SCIENTOLOGIST DIAGNOSTIC THERAPIST[facility], Status: Pen, Time: 11:00 AM [facility] Work Phone: Start: 06-28-2021 ECHO, Provider: SCIENTOLOGIST HHVI ECHO 1,SMCECHO1, Status: Pen, Time: 10:00 AM ECHO, Provider: SCIENTOLOGIST HHVI ECHO 1,SMCECHO1, Status: Pen, Time: 10:00 AM [facility] Work Phone: Start: 06-28-2021 CAROTID, Provider: SCIENTOLOGIST VASCULAR LAB 2[facility], Status: Pen, Time: 9:00 AM CAROTID, Provider: SCIENTOLOGIST VASCULAR LAB 2[facility], Status: Pen, Time: 9:00 AM [facility] Work Phone: Start: 06-19-2021 EPV, Provider: Kristen Caballero, Status: Pen, Time: 8:40 AM EPV, Provider: Kristen Caballero, Status: Pen, Time: 8:40 AM [facility] Work Phone: Start: 05-29-2021 EPV, Provider: Kristen Caballero, Status: Pen, Time: 8:40 AM EPV, Provider: Kristen Caballero, Status: Pen, Time: 8:40 AM [facility] Work Phone: Start: 04-24-2021 Urine screening for protein Diabetes: Urine Protein Screening [facility] Start: 04-18-2021 Hemoglobin A1c measurement HBA1C TEST [facility] Start: 02-27-2021 EPV, Provider: Kristen Caballero, Status: Pen, Time: 11:20 AM EPV, Provider: Kristen Caballero, Status: Pen, Time: 11:20 AM [facility] Work Phone: Start: 02-20-2021 EPV, Provider: Kristen Caballero, Status: Pen, Time: 8:40 AM EPV, Provider: Kristen Caballero, Status: Pen, Time: 8:40 AM [facility] Work Phone: Start: 02-13-2021 FUV, Provider: Malcolm Pérez, Status: Pen, Time: 1:00 PM FUV, Provider: Malcolm Pérez, Status: Pen, Time: 1:00 PM [facility] [address] [facility] Work Phone: Start: 02-06-2021 EPV, Provider: Kristen Caballero, Status: Pen, Time: 8:00 AM EPV, Provider: Kristen Caballero, Status: Pen, Time: 8:00 AM [facility] Work Phone: Start: 01-08-2021 NSEVALDIAB, Provider : Bradly Spicer, Status: Pen, Time: 10:00 AM NSEVALDIAB, Provider: Bradly Spicer, Status: Pen, Time: 10:00 AM [facility] [address] Work Phone: Start: 01-01-2021 End: 01-01-2021 Patient encounter procedure 01/01/2021 Office Visit Endocrinology, Diabetes & Metabolism David Thomas MD [address] [place] [address] [address] [place] [address] Endocrinology Outpatient Care [facility] Start: 11-30-2020 COLON, Provider: Malcolm Pérez, Status: Pen, Time: 9:20 AM COLON, Provider: Malcolm Pérez, Status: Pen, Time: 9:20 AM [facility] Work Phone: Start: 11-07-2020 NPV, Provider: Malcolm Pérez, Status: Pen, Time: 2:00 PM NPV, Provider: Malcolm Pérez, Status: Pen, Time: 2:00 PM [facility] Work Phone: Start: 10-31-2020 NPV, Provider: Malcolm Pérez, Status: Pen, Time: 1:00 PM NPV, Provider: Malcolm Pérez, Status: Pen, Time: 1:00 PM [facility] Work Phone: Start: 10-31-2020 Influenza vaccination INFLUENZA VACC INE (#1) [facility] Start: 10-31-2020 EPV, Provider: Kristen Caballero, Status: Pen, Time: 10:20 AM EPV, Provider: Kristen Caballero, Status: Pen, Time: 10:20 AM [facility] Work Phone: Start: 10-31-2020 EPV, Provider: Kristen Caballero, Status: Pen, Time: 8:20 AM EPV, Provider: Kristen Caballero, Status: Pen, Time: 8:20 AM [facility] Work Phone: Start: 09-07-2020 [id number], Provider : Gladys Rojsa, Status: Pen, Time: 9:00 AM [id number], Provider: Gladys Rojas, Status: Pen, Time: 9:00 AM [facility] Work Phone: Start: 08-29-2020 NEWPROB, Provider: Lucio Greenberg, Status: Pen, Time: 1:20 PM NEWPROB, Provider: Lucio Greenberg, Status: Pen, Time: 1:20 PM [facility] Work Phone: Start: 2018 Hepatitis B Vaccines (1 of 3 - Risk 3-dose series) Hepatitis B Vaccines (1 of 3 - Risk 3-dose series) [facility] Start: 2018 RSV High Risk: (Elde rly (60+) or Population) (1 - Risk 60-74 years 1-dose series) RSV High Risk: (Elderly (60+) or Population) (1 - Risk 60-74 years 1-dose series) [facility] Start: 2018 RSV patient s and/or patients aged 60+ years (1 - 1-dose 60+ series) RSV patients and/or patients aged 60+ years (1 - 1-dose 60+ series) [facility] Start: 2018 RSV Vaccine (1 - 1-d ose 60+ series) RSV Vaccine (1 - 1-dose 60+ series) [facility] Start: 10-31-2018 Influenza vaccination INFLUENZA VACC INE (#1) [facility] Start: 09-25-2014 Screening for malign ant neoplasm of cervix Cervical Cancer Screening [facility] Start: 03-01-2014 Glaucoma screening Dilated Retinal E xam [facility] Start: 11-30-2013 Screening for malign ant neoplasm of breast Mammogram Screening [facility] Start: 10-21-2012 Diabetic foot examination Diabetic Foot Exam [facility] Start: 10-21-2012 Hepatitis B screening Urine Albumin:Creatinine Ratio [facility] Start: 2008 Colonoscopy COLON CANCER S CREENING DISCUSSION [facility] Start: 2008 Shingrix Vaccine (1 of 2) Shingrix Vaccine (1 of 2) [facility] Start: 2008 Zoster vaccine hzv l celia for subcutaneous use ZOSTER (SHINGLES) VACCINE (1 of 2) [facility] Start: 2008 Zoster Vaccines (1 o f 2) Zoster Vaccines (1 of 2) [facility] Start: 12-22-2003 Colonoscopy COLORECTAL CAN CER SCREENING DISCUSSION [facility] Start: 12-22-2003 Screening for malign ant neoplasm of colon [facility] Start: 1998 Fasting lipid profile LIPID SCREENIN G [facility] Start: 1998 Screening mammography MAMMOGRA M SCREENING DISCUSSION [facility] Start: 1980 DTaP/Tdap/Td Vaccine s (1 - Tdap) DTaP/Tdap/Td Vaccines (1 - Tdap) [facility] Start: 12-22-1979 Screening for malign ant neoplasm of cervix [facility] Start: 1977 Hepatitis A Vaccines (1 of 2 - Risk 2-dose series) Hepatitis A Vaccines (1 of 2 - Risk 2-dose series) [facility] Start: 1977 Pneumococcal vaccination Pneumococcal Vaccine (1 of 2 - PCV) [facility] Start: 1977 Third diphtheria, tetanus and acellular pertussis (DTaP) vaccination TDAP (ADULT) [facility] Start: 1976 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 Start: 1970 COVID-19 VACCINE (1) COVID-19 VACCIN E (1) [facility] Start: 1968 Diabetic foot examination Diabetes: Foot Exam [facility] Start: 1968 Glaucoma screening Diabetes: R etinopathy Screening [facility] Start: 1968 Ophthalmic examinati on and evaluation Diabetes: Retinopathy Screening [facility] Start: 1964 Pneumococcal vaccination Pneumococcal Vaccine (1 of 2 - PCV) [facility] Start: 1964 Pneumococcal Vaccine : 65+ Years (1 - PCV) Pneumococcal Vaccine: 65+ Years (1 - PCV) [facility] Start: 1964 Pneumococcal Vaccine : 65+ Years (1 of 2 - PCV) Pneumococcal Vaccine: 65+ Years (1 of 2 - PCV) [facility] Start: 1964 Pneumococcal Vaccine : Pediatrics (0 to 5 Years) and At-Risk Patients (6 to 64 Years) (1 - PCV) Pneumococcal Vaccine: Pediatrics (0 to 5 Years) and At-Risk Patients (6 to 64 Years) (1 - PCV) [facility] Start: 1964 Pneumococcal Vaccine : Pediatrics (0 to 5 Years) and At-Risk Patients (6 to 64 Years) (1 of 2 - PCV) Pneumococcal Vaccine: Pediatrics (0 to 5 Years) and At-Risk Patients (6 to 64 Years) (1 of 2 - PCV) [facility] Start: 12-22-1959 Hepatitis A Vaccines (1 of 2 - Risk 2-dose series) Hepatitis A Vaccines (1 of 2 - Risk 2-dose series) [facility] Start: 12-22-1959 MMR Vaccines (1 of 1 - Standard series) MMR Vaccines (1 of 1 - Standard series) [facility] Start: 06-22-1959 COVID-19 Vaccine (#1) COVID-19 Vacci ne (#1) [facility] Start: 1958 Annual wellness visit [facility] Start: 1958 [facility]abetic foot [facility]: [facility] Diabetic retinal eye exam DIABETIC EYE EXAM [facility] Start: 1958 Hepatitis C antibody , confirmatory test HEPATITIS C VIRUS SCREENING [facility] Start: 1958 HIV screening HIV Screening [facility] Start: [address] [facility] Start: 1958 Microalbumin measurement, urine, quantitative URINE MICROALBUMIN TEST [facility] Start: 1958 Screening for malign ant neoplasm of colon [facility] Start: 1958 Screening for osteoporosis Bone Density Scan [facility] Start: 1958 Yearly Adult Physical Yearly Adult P hysical [facility] Bacteria identified in Urine by Culture Urine Culture Microbiology Routine Acute cystitis with hematuria Ordered: 05/27/2023 [facility] Area Work Phone: Comment on above: Ordered: 05/27/2023 Bacteria identified in Urine by Culture Urine Culture Microbiology Routine Acute cystitis with hematuria 12/07/2023 12:39 PM EDT [facility] Work Phone: BACTERIAL VAGINOSIS NAAT BACTERIAL VAGINOSIS NAAT Lab Routine Vulvar irritation 09/10/2023 8:20 AM EDT [facility] EMMA/TRICHOMONAS NAAT EMMA/TRICHOMONAS NAAT Lab Routine Vulvar irritation 09/10/2023 8:[address] [facility] Work Phone: End: 10-20-2024 CT Abdomen and Pelvis W contrast IV [facility] Service Area Work Phone: Comment on above: Once for 1 Occurrenc es starting 10/20/2024 until 10/20/2024 H/O: section History of section Comments: x8 [facility] Comment on above: x8 History of arthrosco py of knee joint History of arthroscopy of left knee [facility] History of cholecystectomy History of laparoscopic cholecystectomy [facility] History of hernia repair History of hernia repair [facility] History of tonsillectomy History of tonsillectomy [facility] End: 10-27-2024 MR Pancreas WO and W contrast IV [facility] Service Area Work Phone: Comment on above: Once for 1 Occurrenc es starting 10/27/2024 until 10/27/2024 Vaginitis Gram Stain For Bacterial Vaginosis + Yeast Vaginitis Gram Stain For Bacterial Vaginosis + Yeast Microbiology Routine Acute vaginitis Ordered: 03/03/2023 [facility] Service Area Work Phone: Comment on above: Ordered: 03/03/2023 End: 03-27-2023 XR Knee - left 4 Views [facility] Service Area Work Phone: Comment on above: Once for 1 Occurrenc es starting 03/27/2023 until 03/27/2023 [facility] Work Phone: NEGATED: Highlighted row has been ruled out! Planned Goals not documented [facility] Work Phone: Immunizations Immunization Date Immunization Notes Care Provider Sarah downey 11-15-2019 influenza, injectabl e, quadrivalent, preservative free Martina Hale [facility] [address] Work Phone: Comment on above: Series: 11-15-2019 influenza, seasonal, injectable Kristen [place] DO Work Phone: [facility] Work Phone: 11-15-2019 influenza virus vaccine, unspecified formulation Kristen [place] DO Work Phone: [facility] Work Phone: 11-22-2018 influenza, seasonal, injectable Kristen [place] DO Work Phone: [facility] Work Phone: 11-22-2018 Seasonal, quadrivalent, recombinant, injectable influenza vaccine, preservative free Kristen S [place] Work Phone: [facility] Work Phone: 11-22-2017 Influenza, injectabl e, Madin Pati Canine Kidney, preservative free, quadrivalent Kristen S [place] Work Phone: [facility] Work Phone: 11-22-2017 influenza, seasonal, injectable Kristen [place] DO Work Phone: [facility] Work Phone: 01-05-2015 influenza, seasonal, injectable Kristen S [place] Work Phone: [facility] 12-20-[address] 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 Work Phone: [facility] 03-27-2010 hepatitis B vaccine, pediatric or pediatric/adolescent dosage Kristen S [place] Work Phone: [facility] 11-21-2009 hepatitis A vaccine, pediatric/adolescent dosage, 2 dose schedule Kristen S [place] Work Phone: [facility] 11-21-2009 hepatitis B vaccine, pediatric or pediatric/adolescent dosage Kristen S [place] Work Phone: [facility] 11-21-2009 hepatitis A and hepatitis B vaccine Kristen [place] DO Work Phone: [facility] Work Phone: Payers Date Payer Category Payer Medicare ANTHEM MEDICARE ANTHEM MEDICARE ADVANTAGE [id number] 2023-Present [address] [place] [address] [id number] 2023 Medicare (Managed Care) TANVIR CROWE ADVANTAGE [id number] 2023 Medicare [id number] 2023 Self-pay 2022 Medicaid [id number] 2018 Medicaid [id number] 2018 Unknown ZAHRAA LAM [id number] 2018-Present [address] [place] [address] [id number]. [id number] 2018 Unknown 2012 Unknown [id number] 1958 Unknown [id number] 2.16.840.1.784416.3.579.2. 717 1958 Unknown [id number] 2.16.840.1.685856.3.579.2. 717 1958 Unknown [id number] 2.16.840.1.779836.3.579.2. 903 1958 Unknown [id number] 2.16.840.1.037292.3.579.2. 903 1958 Unknown [id number] 2.16.840.1.574343.3.579.2. 903 1958 Unknown [id number] 2.16.840.1.570224.3.579.2. 903 1958 Unknown [id number] 2.16.840.1.203084.3.579.2. 903 1958 Unknown [id number] 2.16.840.1.029394.3.579.2. 594 1958 Unknown [id number] 2.16.840.1.488624.3.579.2. 594 1958 Unknown [id number] 2.16.840.1.756160.3.579.2. 356 1958 Unknown [id number] 2.16.840.1.098432.3.579.2. 356 1958 Unknown [id number] 2.16.840.1.029072.3.579.2. 356 1958 Unknown [id number] 2.16.840.1.502477.3.579.2. 356 1958 Unknown [id number] 2.16.840.1.168528.3.579.2. 1069 1958 Unknown [id number] 2.16.840.1.544559.3.579.2. 1069 1958 Unknown [id number] 2.16.840.1.260309.3.579.2. 1069 1958 Unknown [id number] 2.16.840.1.890225.3.579.2. 1069 1958 Unknown [id number] 2.16.840.1.035307.3.579.2. 419 1958 Unknown [id number] 2.16.840.1.580789.3.579.2. 651 1958 Unknown [id number] 2.16.840.1.850970.3.579.2. 1245 1958 Unknown [id number] 2.16.840.1.364379.3.579.2. 124 1958 Unknown [id number] 2.840.1.887491.3.579.2. 1244 1958 Unknown [id number] 2.16840.1.794639.3.579.2. 1244 1958 Unknown [id number] 2.840.1.991816.3.579.2. 1244 1958 Unknown [id number] 2.840.1.421225.3.579.2. 1244 1958 Unknown [id number] 2.840.1.799504.3.579.2. 1244 1958 Unknown [id number] 2.840.1.506428.3.579.2. 1244 1958 Unknown [id number] 2.840.1.192546.3.579.2. 1244 1958 Unknown [id number] 2.840.1.264395.3.579.2. 1244 1958 Unknown [id number] 2.840.1.172197.3.579.2. 1244 1958 Unknown [id number] 2.840.1.883217.3.579.2. 1244 1958 Unknown [id number] 2.840.1.037638.3.579.2. 1244 1958 Unknown [id number] 2.840.1.018428.3.579.2. 1244 1958 Unknown [id number] 2.840.1.061151.3.579.2. 1244 1958 Unknown [id number] 2.840.1.052798.3.579.2. 1244 1958 Unknown [id number] 2.840.1.520480.3.579.2. 1245 1958 Unknown [id number] 2.16.840.1.195048.3.579.2. 1244 1958 Unknown [id number] 2.16.840.1.204321.3.579.2. 1244 1958 Unknown [id number] 2.16.840.1.369199.3.579.2. 1244 1958 Unknown [id number] 2.16.840.1.229578.3.579.2. 1244 1958 Unknown [id number] 2.16.840.1.306832.3.579.2. 1244 1958 Unknown [id number] 2.16.840.1.857017.3.579.2. 1244 1958 Unknown [id number] 2.16.840.1.192019.3.579.2. 1244 1958 Unknown [id number] 2.16.840.1.227407.3.579.2. 1244 1958 Unknown [id number] 2.16.840.1.315356.3.579.2. 1244 1958 Unknown [id number] 2.16.840.1.672958.3.579.2. 1244 1958 Unknown [id number] 2.16.840.1.654062.3.579.2. 1244 1958 Unknown [id number] 2.16.840.1.805185.3.579.2. 1244 1958 Unknown [id number] 2.16.840.1.982623.3.579.2. 1242 1958 Unknown [id number] 2.16.840.1.489622.3.579.2. 1242 1958 Unknown [id number] 2.16.840.1.943677.3.579.2. 1244 1958 Unknown [id number] 2.16.840.1.568237.3.579.2. 1244 1958 Unknown [id number] 2.16.840.1.194589.3.579.2. 1244 1958 Unknown [id number] 2.16.840.1.412082.3.579.2. 1244 1958 Unknown [id number] 2.16840.1.415817.3.579.2. 1244 1958 Unknown [id number] 2.840.1.070351.3.579.2. 1244 1958 Unknown [id number] 2.840.1.006176.3.579.2. 1244 Unknown [id number] Unknown [id number] 2.840.1.721195.3.579.2. 462 Unknown [id number] 2.840.1.449725.3.579.2. 462 Unknown [id number] 2.16840.1.909946.3.579.2. 462 Unknown [id number] 2.16840.1.330205.3.579.2. 462 Unknown [id number] 2.16840.1.347961.3.579.2. 462 Unknown [id number] 2.16840.1.514826.3.579.2. 462 Unknown [id number] 2.16840.1.272937.3.579.2. 462 Unknown [id number] 2.16.840.1.370456.3.579.2. 462 Unknown [id number] 2.16.840.1.082881.3.579.2. 462 Unknown [id number] 2.16.840.1.124740.3.579.2. 462 Unknown [id number] 2.16.840.1.173145.3.579.2. 462 Unknown [id number] 2.16.840.1.049709.3.579.2. 462 Unknown [id number] 2.16.840.1.035686.3.579.2. 462 Unknown [id number] 2.16.840.1.146623.3.579.2. 462 Social History Date Type Detail Facility Assertion Tobacco smoking consumption unknown (finding) [facility] Start: 1960 Sex Assigned At Not on file O [facility] Start: 06-16-2022 End: 10-19-2024 Denies alcohol consumption Denies alcohol consumption [facility] Work Phone: Start: 09-17-2018 End: 06-16-2022 Tobacco smoking status NHIS Never smoker [facility] Start: 09-17-2018 End: 06-16-2022 Tobacco use and exposure Never used [facility] Start: 12-13-2019 Alcohol intake Lifetime non-d charles (finding) [facility] Start: 12-13-2019 History SDOH Alcohol Frequency [address] [facility] Start: 06-06-2022 End: 05-23-2024 Exposure to SARS-CoV-2 (event) Not sure [facility] Start: 06-16-2022 End: 10-19-2024 Alcohol intake Ex-drinker (finding) [facility] Work Phone: Start: 06-16-2022 End: 10-19-2024 Tobacco use panel [facility] Work Phone: Tobacco smoking consumption unknown [facility] Start: 09-10-2023 Alcohol intake 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 non-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 alcohol (finding) [facility] Start: 01-25-2022 National Score (1-100), lower number is lower risk 60 [facility] Start: 03-24-2023 Education 17 [facility] Start: 04-05-2017 [facility] Start: 06-02-2018 Lives Lives [facility] Start: 04-05-2017 Tobacco Use Tobacco Use [facility] Start: 1960 Sex Assigned At Female [facility] Start: 10-20-2024 Gender identity Identifies as female gender (finding) [facility] Work Phone: NEGATED: Highlighted rowStart: MAXIMINO History of tobacco use Passive smoker [facility] Medical Equipment Procedure Code Equipment Code Equipment Origin al Text Equipment Identifier Dates Start: 08-01-[address] In Vitro Strip TEST 2 TIMES DAILY Quantity: 200 Refills: 3 [place] DO, Kristen Start : 08-Dec-2019 Active Start: 12-08-2019 Lancets USE TO T EST BLOOD SUGAR 2 TIMES DAILY Quantity: 200 Refills: 3 [place] DO, Kristen Start : 08-Dec-2019 Active Start: 12-08-2019 by Instructed ro [facility]. Test 4 times a day. Freestyle lite brand. [id number] 32 gauge 8MM [id number] Start: 08-26-2022 End: 08-26-2023 USE DIRECTED [id number] Start: 02-02-2023 End: 09-08-2023 1 strip early in the morning.. [id number] Start: 11-10-2023 TEST ONCE DAILY [id number] Start: 11-10-2023 1 each once daily. [id number] Start: 11-16-2023 End: 12-15-2023 Use once daily f or Lantus injection [id number] Start: 12-15-2023 1 strip early in the morning.. [id number] Start: 01-27-2024 End: 02-02-2024 test blood sugar twice daily [id number] Start: 02-02-2024 Goals Date Patient Goal Desired Activity /State Functional Status Date Assessment Result Facility 10-19-2024 Patient Health Questionnaire 2 item (PHQ-2) [Reported] [facility] Work Phone: 09-27-2024 Patient Health Questionnaire 2 item (PHQ-2) [Reported] [facility] Work Phone: NEGATED: Highlighted row Functional performance Functional status health issues are not documented Disease [facility] 300 Work Phone: Mental Status Date Assessment Result Facility NEGATED: Highlighted row Cognitive function [Interpretation] Cognitive status health issues are not documented Disease [facility] Work Phone: Clinical Notes 07-31-2020 to 10-27-2024 Laura Lynch, PharmD - 10/27/2024 9:20 AM EDTAssessment & Plan Note - Kristen Caballero DO - 10/26/2024 11:06 AM EDTKristen Caballero DO - 10/26/2024 10:40 AM EDTPatient Instructions Note Date & Type Note Facility 10-27-2024 History of Presen t illness Narrative Pharmacist Clinic: Diabetes Management Alina Patel is a 63 y.o. female was referred to Clinical Pharmacy Team for diabetes management. Referring Provider: Kristen Caballero DO Diabetes She presents for her follow-up diabetic visit. She has type 2 diabetes mellitus. Her disease course has been stable. There are no hypoglycemic associated symptoms. There are no diabetic associated symptoms. There are no hypoglycemic complications. There are no diabetic complications. Risk factors for coronary artery disease include diabetes mellitus, dyslipidemia, hypertension and obesity. She is compliant with treatment all of the time. Her weight is stable. Meal planning includes avoidance of concentrated sweets. Her home blood glucose trend is fluctuating minimally. An DEZ inhibitor/angiotensin II receptor eladio is being taken. Eye exam is current. Since last visit, reduced glipizide to 5mg with dinner due to evening lows. Lows have been less frequent and mild around 70. Scheduled for MRCP today to evaluate pancreatic lesion. She has continued efforts to reduce carbs in diet - salads with protein, nuts. Has chronic knee pain which limits physical activity, walking is tolerable. PMH of recurrent UTI's, reports UTI 2-3 x per year - avoiding SGLT2i LAB REVIEW Lab Results Component Value Date LDLCALC 69 12/17/2023 CREATININE 0.57 09/16/2024 Lab Results Component Value Date HGBA1C 6.8 (H) 09/16/2024 HGBA1C 7.5 (H) 03/21/2024 HGBA1C 10.6 (H) 12/17/2023 Lab Results Component Value Date TRIG 314 (H) 12/17/2023 TRIG 518 (H) 06/13/2022 TRIG 170 (H) 11/07/2021 The 10-year ASCVD risk score (Miranda WEBB, et al., 2019) is: 13.9% Values used to calculate the score: Age: 63 years Clincally relevant sex: Female Is Non- : No Diabetic: Yes Tobacco smoker: No Systolic Blood Pressure: 130 mmHg Is BP treated: Yes HDL Cholesterol: 55 mg/dL Total Cholesterol: 187 mg/dL DIABETES ASSESSMENT CURRENT PHARMACOTHERAPY - Metformin XR 1000mg twice daily - Glipizide 10 mg in AM and 5mg in PM - Toujeo Max U-300 78 units once daily (bedtime) Allergies: Codeine and Lisinopril SECONDARY PREVENTION - Statin? Yes - DEZ-I/ARB? Yes - Aspirin? Yes HISTORICAL PHARMACOTHERAPY - Pioglitazone (aches, edema) - Victoza (replaced by Trulicity) - Januvia (ineffective) - Trulicity (suboptimal response) - Mounjaro (GI s/e) - Repaglinide (non adherence) SMBG MEASUREMENTS Patient is using: glucometer + Dexcom G6 (uses reader only, prefers G6 for abdominal sensor application) AM FBG avg 130-180 (rises in AM then reduces) Postprandial avg < 180 Patient does not report symptoms of hypoglycemia. Is aware - will feel shaky and hungry. Patient does not report symptoms of hyperglycemia. AFFORDABILITY/ADHERENCE - No cost barriers - Frequent missed dosing with mealtime regimens Assessment/Plan Problem List Items Addressed This Visit Diabetes (Multi) Relevant Orders Referral to Clinical Pharmacy Patients diabetes is well controlled with most recent A1c of 6.8% (Goal < 7%) CONTINUE Toujeo Max U-300 78 units once daily CONTINUE Metformin XR 1000mg twice daily CONTINUE glipizide 10mg in AM and 5mg in PM (due to evening lows and lower carb intake with dinner) Reviewed hypoglycemia management rule of 15; has glucose tabs on hand Replace simple carbs with complex carbs - whole grain, whole wheat. Increase protein intake. Declined offer for nutrition referral. Adherence at present is estimated to be good. Efforts to improve adherence (if necessary) will be directed at dietary modifications: reduce carbohydrate intake, aim for 60 grams protein daily. Counseled patient on MOA, expectations, side effects, duration of therapy, administration, and monitoring parameters. Addressed all of patients questions and concerns at time of appointment. Encouraged to reach out to PharmD with additional needs. PharmD Follow-up: 11/24/24 09:20 AM PCP Follow-up: 12/28/24 Notify your healthcare provider if you have any of the following: -Diarrhea or vomiting for more than six hours -Blood sugar >300 mg/dL more than once -Low blood sugar (<70 mg/dL) -Questions about your medications Thank you, Laura Lynch PharmD Continue all meds under the continuation of care with the referring provider and clinical pharmacy team. Verbal consent to manage patient's drug therapy was obtained. They were informed they may decline to participate or withdraw from participation in pharmacy services at any time. documented in this encounter [facility] Work Phone: 10-26-2024 Evaluation + Plan note Associated Problem(s): Claustrophobia - Will prescribe lorazepam and OARRS has been checked [facility] Work Phone: 10-26-2024 Miscellaneous Notes Associated Problem(s): Claustrophobia - Will prescribe lorazepam and OARRS has been checked Associated Problem(s): Pancreatic lesion ([facility]HS-HCC) - CT scan of abdomen and pelvis 10-20-2024 IMPRESSION: No acute abdominopelvic process to account for patient's pain. 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 Improved hepatomegaly with persistent hepatic steatosis. MACRO: None -Will order MRCP for follow-up and see her back Associated Problem(s): Acute left-sided thoracic back pain - She will go for x-rays of the thoracic spine and we will see her back in follow-up Associated Problem(s): Left upper quadrant abdominal pain - CT of abdomen and pelvis did not reveal the source of her discomfort and lab work looks essentially normal -She does describe as a burning sensation so I am thinking it could be a neuropathic pain or radiculopathy from her thoracic spine. She has had some back pain. I am ordering x-rays and we will go from there -We also discussed possibly ordering a colonoscopy to complete her evaluation documented in this encounter [facility] Work Phone: 10-26-2024 Evaluation + Plan note Associated Problem(s): Pancreatic lesion (HHS-HCC) - CT scan of abdomen and pelvis 10-20-2024 IMPRESSION: No acute abdominopelvic process to account for patient's pain. 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 Improved hepatomegaly with persistent hepatic steatosis. MACRO: None -Will order MRCP for follow-up and see her back [facility] Work Phone: 10-26-2024 Evaluation + Plan note Associated Problem(s): Acute left-sided thoracic back pain - She will go for x-rays of the thoracic spine and we will see her back in follow-up [facility] Work Phone: 10-26-2024 Evaluation + Plan note Associated Problem(s): Left upper quadrant abdominal pain - CT of abdomen and pelvis did not reveal the source of her discomfort and lab work looks essentially normal -She does describe as a burning sensation so I am thinking it could be a neuropathic pain or radiculopathy from her thoracic spine. She has had some back pain. I am ordering x-rays and we will go from there -We also discussed possibly ordering a colonoscopy to complete her evaluation [facility] Work Phone: 10-26-2024 History of Presen t illness Narrative Subjective Patient ID: Alina Patel is a 63 y.o. female who presents for Follow-up (1 WK CK). HPI She is here today for follow-up. We went over the results of her lab work and CT scan of the abdomen. We did not find a source for her discomfort but she did have reported 1.8 cm pancreatic cystic lesion and it was recommended she have an MRCP. She states she does experience claustrophobia when having an MRI so I am giving her a premedication. She states that the symptoms she is having on her right abdomen feel like a burning sensation. We do not see any evidence of rash. She states she has had some back pain that radiates around to the side. We discussed the possibility of a thoracic spine issue with radiation and we talked about dermatomes. It seems that her symptoms are in the dermatomal distribution of T6-T9. We will order an x-ray of her thoracic spine and of course ordered a follow-up MRI. We have discussed doing a colonoscopy to make sure all is covered well. She reminds me that she was supposed to have 1 before but then she backed out of it. We will see her back in follow-up. Objective Physical Exam Vitals and nursing note reviewed. Constitutional: General: She is not in acute distress. Appearance: Normal appearance. HENT: Head: Normocephalic and atraumatic. Eyes: Conjunctiva/sclera: Conjunctivae normal. Cardiovascular: Rate and Rhythm: Normal rate and regular rhythm. Heart sounds: Normal heart sounds. Pulmonary: Effort: No respiratory distress. Breath sounds: No wheezing. Abdominal: Palpations: Abdomen is soft. Tenderness: There is no abdominal tenderness. There is no guarding. Musculoskeletal: General: No swelling. Normal range of motion. Skin: General: Skin is warm and dry. Neurological: General: No focal deficit present. Mental Status: She is alert and oriented to person, place, and time. Psychiatric: Behavior: Behavior normal. Recent Results (from the past 4 weeks) POCT UA Automated manually resulted Collection Time: 10/19/24 12:56 PM Result Value Ref Range POC Color, Urine Yellow Straw, Yellow, Light-Yellow POC Appearance, Urine Clear Clear POC Glucose, Urine NEGATIVE NEGATIVE mg/dl POC Bilirubin, Urine NEGATIVE NEGATIVE POC Ketones, Urine NEGATIVE NEGATIVE mg/dl POC Specific Bessie, Urine 1.010 1.005 - 1.035 POC Blood, Urine NEGATIVE NEGATIVE POC PH, Urine 6.0 No Reference Range Established PH POC Protein, Urine NEGATIVE NEGATIVE mg/dl POC Urobilinogen, Urine 0.2 0.2, 1.0 EU/DL Poc Nitrite, Urine NEGATIVE NEGATIVE POC Leukocytes, Urine NEGATIVE NEGATIVE CBC and Auto Differential Collection Time: 10/19/24 1:06 PM Result Value Ref Range WHITE BLOOD CELL COUNT 6.9 3.8 - 10.8 Thousand/uL RED BLOOD CELL COUNT 5.49 (H) 3.80 - 5.10 Million/uL HEMOGLOBIN 14.6 11.7 - 15.5 g/dL HEMATOCRIT 44.6 35.0 - 45.0 % MCV 81.2 80.0 - 100.0 fL MCH 26.6 (L) 27.0 - 33.0 pg MCHC 32.7 32.0 - 36.0 g/dL RDW 14.7 11.0 - 15.0 % PLATELET COUNT 275 140 - 400 Thousand/uL MPV 9.6 7.5 - 12.5 fL ABSOLUTE NEUTROPHILS 3,864 1,500 - 7,800 cells/uL ABSOLUTE LYMPHOCYTES 2,318 850 - 3,900 cells/uL ABSOLUTE MONOCYTES 524 200 - 950 cells/uL ABSOLUTE EOSINOPHILS 152 15 - 500 cells/uL ABSOLUTE BASOPHILS 41 0 - 200 cells/uL NEUTROPHILS 56 % LYMPHOCYTES 33.6 % MONOCYTES 7.6 % EOSINOPHILS 2.2 % BASOPHILS 0.6 % Lipase Collection Time: 10/19/24 1:06 PM Result Value Ref Range LIPASE 17 7 - 60 U/L Hepatic Function Panel Collection Time: 10/19/24 1:06 PM Result Value Ref Range PROTEIN, TOTAL 7.0 6.1 - 8.1 g/dL ALBUMIN 4.4 3.6 - 5.1 g/dL GLOBULIN 2.6 1.9 - 3.7 g/dL (calc) ALBUMIN/GLOBULIN RATIO 1.7 1.0 - 2.5 (calc) BILIRUBIN, TOTAL 0.8 0.2 - 1.2 mg/dL BILIRUBIN, DIRECT 0.1 < OR = 0.2 mg/dL BILIRUBIN, INDIRECT 0.7 0.2 - 1.2 mg/dL (calc) ALKALINE PHOSPHATASE 67 37 - 153 U/L AST 17 10 - 35 U/L ALT 18 6 - 29 U/L Assessment/Plan Problem List Items Addressed This Visit ICD-10-CM Pancreatic lesion (HHS-HCC) K86.9 - CT scan of abdomen and pelvis 10-20-2024 IMPRESSION: No acute abdominopelvic process to account for patient's pain. 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 Improved hepatomegaly with persistent hepatic steatosis. MACRO: None -Will order MRCP for follow-up and see her back Relevant Orders MRCP pancreas w and wo IV contrast Acute left-sided thoracic back pain - Primary M54.6 - She will go for x-rays of the thoracic spine and we will see her back in follow-up Relevant Orders XR thoracic spine 3 views Claustrophobia F40.240 - Will prescribe lorazepam and OARRS has been checked Relevant Medications LORazepam (Ativan) 0.5 mg tablet Patient instructions As we discussed I sent a prescription to your pharmacy for the pill called lorazepam which should help you with your claustrophobia. Please remember to take it 1/2-hour prior to your procedure and do not drive for 6 hours after ingesting this pill. The staff will be calling you about scheduling the MRCP and I would like to see you back after that completion I am also ordering an x-ray of your back because I am thinking that it is possible you may have a radiculopathy from arthritis in your thoracic spine. We discussed possibly sending her for colonoscopy and we can discuss that again at your next visit Kristen Caballero DO documented in this encounter [facility] Work Phone: 10-26-2024 Instructions Kristen Caballero DO - 10/26/2024 10:40 AM EDT Patient instructions As we discussed I sent a prescription to your pharmacy for the pill called lorazepam which should help you with your claustrophobia. Please remember to take it 1/2-hour prior to your procedure and do not drive for 6 hours after ingesting this pill. The staff will be calling you about scheduling the MRCP and I would like to see you back after that completion I am also ordering an x-ray of your back because I am thinking that it is possible you may have a radiculopathy from arthritis in your thoracic spine. We discussed possibly sending her for colonoscopy and we can discuss that again at your next visit documented in this encounter [facility] Work Phone: 10-19-2024 Evaluation + Plan note Associated Problem(s): Left upper quadrant abdominal pain - Pain has been present since Thursday and pain intensity waxes and wanes -She does not have signs of acute abdomen today but she is tender to touch in the left upper quadrant -We are doing lab work and ordering a CT scan with IV contrast -She understands to go to the emergency room if her pain became suddenly severe and otherwise we will see her back in 1 week [facility] Work Phone: 10-19-2024 Miscellaneous Notes Associated Problem(s): Left upper quadrant abdominal pain - Pain has been present since Thursday and pain intensity waxes and wanes -She does not have signs of acute abdomen today but she is tender to touch in the left upper quadrant -We are doing lab work and ordering a CT scan with IV contrast -She understands to go to the emergency room if her pain became suddenly severe and otherwise we will see her back in 1 week documented in this encounter [facility] Work Phone: 10-19-2024 History of Presen t illness Narrative Subjective Patient ID: Alina Patel is a 63 y.o. female who presents for Follow-up (LEFT SIDE UPPER ABD PAIN AND PINCH IN BACK ). HPI She is here today with some abdominal pain. She explains that it began on Thursday and she points to the left upper quadrant of her abdomen. She states sometimes it radiates from her back to the front. She states her bowels have not been drastically different and she is not describing having constipation or bad diarrhea. She denies seeing any black or bloody stools. She states the pain waxes and wanes and is mild right this minute. We did conduct a full review of systems and I have ordered lab work to assess her liver and pancreas. I am also ordering a CT scan. On today's examination she does not have any rebound or guarding but she is tender to touch. We discussed going the emergency room if it suddenly got worse and otherwise we will see her back in follow-up. Review of Systems Constitutional: Negative for fatigue. Respiratory: Negative for cough, shortness of breath and wheezing. Cardiovascular: Negative for chest pain, palpitations and leg swelling. Gastrointestinal: Positive for abdominal pain. Negative for blood in stool, constipation, diarrhea, nausea and vomiting. Musculoskeletal: Positive for back pain. Objective Physical Exam Vitals and nursing note reviewed. Constitutional: General: She is not in acute distress. Appearance: Normal appearance. HENT: Head: Normocephalic and atraumatic. Eyes: Conjunctiva/sclera: Conjunctivae normal. Cardiovascular: Rate and Rhythm: Normal rate and regular rhythm. Heart sounds: Normal heart sounds. Pulmonary: Effort: No respiratory distress. Breath sounds: No wheezing. Abdominal: Palpations: Abdomen is soft. Tenderness: There is no abdominal tenderness. There is no guarding. Musculoskeletal: General: No swelling. Normal range of motion. Skin: General: Skin is warm and dry. Neurological: General: No focal deficit present. Mental Status: She is alert and oriented to person, place, and time. Psychiatric: Behavior: Behavior normal. Recent Results (from the past 5 weeks) Basic Metabolic Panel Collection Time: 09/16/24 8:27 AM Result Value Ref Range GLUCOSE 157 (H) 65 - 99 mg/dL UREA NITROGEN (BUN) 19 7 - 25 mg/dL CREATININE 0.57 0.50 - 1.05 mg/dL EGFR 101 > OR = 60 mL/min/1.73m2 BUN/CREATININE RATIO SEE NOTE: 6 - 22 (calc) SODIUM 139 135 - 146 mmol/L POTASSIUM 4.3 3.5 - 5.3 mmol/L CHLORIDE 103 98 - 110 mmol/L CARBON DIOXIDE 25 20 - 32 mmol/L ELECTROLYTE BALANCE 11 7 - 17 mmol/L (calc) CALCIUM 9.7 8.6 - 10.4 mg/dL Hemoglobin A1C Collection Time: 09/16/24 8:27 AM Result Value Ref Range HEMOGLOBIN A1c 6.8 (H) <5.7 % eAG (mg/dL) 148 mg/dL eAG (mmol/L) 8.2 mmol/L Assessment/Plan Problem List Items Addressed This Visit ICD-10-CM Left upper quadrant abdominal pain R10.12 - Pain has been present since Thursday and pain intensity waxes and wanes -She does not have signs of acute abdomen today but she is tender to touch in the left upper quadrant -We are doing lab work and ordering a CT scan with IV contrast -She understands to go to the emergency room if her pain became suddenly severe and otherwise we will see her back in 1 week Relevant Orders CBC and Auto Differential Lipase Hepatic Function Panel CT abdomen pelvis w IV contrast Right upper quadrant abdominal pain - Primary R10.11 Relevant Orders POCT UA Automated manually resulted Patient instructions As we discussed advise that you stop at the lab today so we can check enzymes for your liver your pancreas and also a blood count. The staff will be calling you about scheduling your CT scan of the abdomen and pelvis and it will be with IV contrast. If for some reason your pain became severe we recommend you go to the emergency room and then we can cancel your test here. I will see you back after completion Kristen Caballero DO documented in this encounter [facility] Work Phone: 10-19-2024 Instructions Kristen Caballero DO - 10/19/2024 12:40 PM EDT Patient instructions As we discussed advise that you stop at the lab today so we can check enzymes for your liver your pancreas and also a blood count. The staff will be calling you about scheduling your CT scan of the abdomen and pelvis and it will be with IV contrast. If for some reason your pain became severe we recommend you go to the emergency room and then we can cancel your test here. I will see you back after completion documented in this encounter [facility] Work Phone: 09-29-2024 History of Presen t illness Narrative Pharmacist Clinic: Diabetes Management Alina Patel is a 63 y.o. female was referred to Clinical Pharmacy Team for diabetes management. Referring Provider: Kristen Caballero DO Diabetes She presents for her follow-up diabetic visit. She has type 2 diabetes mellitus. Her disease course has been stable. There are no hypoglycemic associated symptoms. There are no diabetic associated symptoms. There are no hypoglycemic complications. There are no diabetic complications. Risk factors for coronary artery disease include diabetes mellitus, dyslipidemia, hypertension and obesity. She is compliant with treatment all of the time. Her weight is stable. Meal planning includes avoidance of concentrated sweets. Her home blood glucose trend is fluctuating minimally. An DEZ inhibitor/angiotensin II receptor eladio is being taken. Eye exam is current. Since last visit, repeat A1c reduced from 7.5% to 6.8% Increased frequency of lows overnight lowest 56 x 1 , verified with fingerstick check was 55, otherwise usually high 60s. She tried lowering dose of Toujeo to 76 units for a few days and AM FBG lamin to 200s. Delayed meals and eating fast food more often due to busy schedule with remodeling She has continued efforts to reduce carbs in diet - salads with protein, nuts. Has chronic knee pain which limits physical activity, walking is tolerable. PMH of recurrent UTI's, reports UTI 2-3 x per year - avoiding SGLT2i LAB REVIEW Lab Results Component Value Date LDLCALC 69 12/17/2023 CREATININE 0.57 09/16/2024 Lab Results Component Value Date HGBA1C 6.8 (H) 09/16/2024 HGBA1C 7.5 (H) 03/21/2024 HGBA1C 10.6 (H) 12/17/2023 Lab Results Component Value Date TRIG 314 (H) 12/17/2023 TRIG 518 (H) 06/13/2022 TRIG 170 (H) 11/07/2021 The 10-year ASCVD risk score (Miranda WEBB, et al., 2019) is: 14.3% Values used to calculate the score: Age: 63 years Clincally relevant sex: Female Is Non- : No Diabetic: Yes Tobacco smoker: No Systolic Blood Pressure: 132 mmHg Is BP treated: Yes HDL Cholesterol: 55 mg/dL Total Cholesterol: 187 mg/dL DIABETES ASSESSMENT CURRENT PHARMACOTHERAPY - Metformin XR 1000mg twice daily - Glipizide 10 mg twice daily - Toujeo Max U-300 78 units once daily (bedtime) Allergies: Codeine and Lisinopril SECONDARY PREVENTION - Statin? Yes - DEZ-I/ARB? Yes - Aspirin? Yes HISTORICAL PHARMACOTHERAPY - Pioglitazone (aches, edema) - Victoza (replaced by Trulicity) - Januvia (ineffective) - Trulicity (suboptimal response) - Mounjaro (GI s/e) - Repaglinide (non adherence) SMBG MEASUREMENTS Patient is using: glucometer + Dexcom G6 (uses reader only, prefers G6 for abdominal sensor application) AM FBG avg 130-180 (rises in AM then reduces) Postprandial avg < 180 No lows < 70 Patient does not report symptoms of hypoglycemia. Is aware - will feel shaky and hungry. Patient does not report symptoms of hyperglycemia. AFFORDABILITY/ADHERENCE - No cost barriers - Frequent missed dosing with mealtime regimens Assessment/Plan Problem List Items Addressed This Visit Diabetes (Multi) - Primary Relevant Medications insulin glargine (Toujeo Max U-300 SoloStar) 300 unit/mL (3 mL) pen Other Relevant Orders Referral to Clinical Pharmacy Patients diabetes is well controlled with most recent A1c of 6.8% (Goal < 7%) CONTINUE Toujeo Max U-300 78 units once daily CONTINUE Metformin XR 1000mg twice daily REDUCE glipizide 10mg in AM and 5mg in PM (due to evening lows and lower carb intake with dinner) Reviewed hypoglycemia management rule of 15; has glucose tabs on hand Replace simple carbs with complex carbs - whole grain, whole wheat. Increase protein intake. Declined offer for nutrition referral. Adherence at present is estimated to be good. Efforts to improve adherence (if necessary) will be directed at dietary modifications: reduce carbohydrate intake, aim for 60 grams protein daily. Counseled patient on MOA, expectations, side effects, duration of therapy, administration, and monitoring parameters. Addressed all of patients questions and concerns at time of appointment. Encouraged to reach out to PharmD with additional needs. PharmD Follow-up: 10/27/24 09:20 AM PCP Follow-up: 12/28/24 Notify your healthcare provider if you have any of the following: -Diarrhea or vomiting for more than six hours -Blood sugar >300 mg/dL more than once -Low blood sugar (<70 mg/dL) -Questions about your medications Thank you, Laura Lynch PharmD Continue all meds under the continuation of care with the referring provider and clinical pharmacy team. Verbal consent to manage patient's drug therapy was obtained. They were informed they may decline to participate or withdraw from participation in pharmacy services at any time. documented in this encounter [facility] Work Phone: 09-27-2024 Evaluation + Plan note Associated Problem(s): GERD (gastroesophageal reflux disease) - Symptoms have remained stable and we are providing refills today [facility] Work Phone: 09-27-2024 Evaluation + Plan note Associated Problem(s): Diabetes (Multi) - Doing extremely well with her diabetes and will continue with the clinical pharmacy team -We discussed some strategies for avoiding hypoglycemia in the night and she will also discuss this with her pharmacy team -Hemoglobin A1c was fantastic at 6.8 [facility] Work Phone: 09-27-2024 Evaluation + Plan note Associated Problem(s): Vitamin D deficiency - We will check a vitamin D level just prior to her next follow-up visit [facility] Work Phone: 09-27-2024 Evaluation + Plan note Associated Problem(s): HTN (hypertension) -Her blood pressure remains under good control so we will continue with her current antihypertensive regimen [facility] Work Phone: 09-27-2024 Miscellaneous Notes Associated Problem(s): GERD (gastroesophageal reflux disease) - Symptoms have remained stable and we are providing refills today Associated Problem(s): Diabetes (Multi) - Doing extremely well with her diabetes and will continue with the clinical pharmacy team -We discussed some strategies for avoiding hypoglycemia in the night and she will also discuss this with her pharmacy team -Hemoglobin A1c was fantastic at 6.8 Associated Problem(s): Vitamin D deficiency - We will check a vitamin D level just prior to her next follow-up visit Associated Problem(s): HTN (hypertension) -Her blood pressure remains under good control so we will continue with her current antihypertensive regimen Associated Problem(s): Hyperlipidemia LDL goal <100 - She will get a fasting lipid profile just prior to her next follow-up visit documented in this encounter [facility] Work Phone: 09-27-2024 Evaluation + Plan note Associated Problem(s): Hyperlipidemia LDL goal <100 - She will get a fasting lipid profile just prior to her next follow-up visit [facility] Work Phone: 09-27-2024 History of Presen t illness Narrative Subjective Patient ID: Alina Patel is a 63 y.o. female who presents for Follow-up (6 MO CK). HPI She is here today for her routine 6-month checkup. She is looking well. We did conduct a full review of systems. We also went over the results of recent lab work and I am extremely pleased with her numbers. Her hemoglobin A1c came back at 6.8 this time which is the best it has been for a very long time. She explains that there are some occasions where she develops low sugar in the night. We discussed making sure she does not skip meals and we discussed possibly reducing some of her evening insulin. She does follow with the clinical pharmacy team and will discuss this issue with them as well. We also are providing refills on medicines today. We discovered that she will be due for her annual Medicare wellness visit in late November so we will have her return in 3 months for another checkup with lab work. She is also due for a vitamin D evaluation. She is up-to-date with both colon and breast cancer screening but we discovered that she is due for a Pap exam. 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 We will see her back in 3 months Review of Systems Constitutional: Negative for fatigue. Respiratory: Negative for cough, shortness of breath and wheezing. Cardiovascular: Negative for chest pain, palpitations and leg swelling. Gastrointestinal: Negative for abdominal pain, blood in stool, diarrhea, nausea and vomiting. Musculoskeletal: Negative for arthralgias and back pain. Objective Physical Exam Vitals and nursing note reviewed. Constitutional: General: She is not in acute distress. Appearance: Normal appearance. HENT: Head: Normocephalic and atraumatic. Eyes: Conjunctiva/sclera: Conjunctivae normal. Cardiovascular: Rate and Rhythm: Normal rate and regular rhythm. Heart sounds: Normal heart sounds. Pulmonary: Effort: No respiratory distress. Breath sounds: No wheezing. Abdominal: Palpations: Abdomen is soft. Tenderness: There is no abdominal tenderness. There is no guarding. Musculoskeletal: General: No swelling. Normal range of motion. Skin: General: Skin is warm and dry. Neurological: General: No focal deficit present. Mental Status: She is alert and oriented to person, place, and time. Psychiatric: Behavior: Behavior normal. Recent Results (from the past 4 weeks) Basic Metabolic Panel Collection Time: 09/16/24 8:27 AM Result Value Ref Range GLUCOSE 157 (H) 65 - 99 mg/dL UREA NITROGEN (BUN) 19 7 - 25 mg/dL CREATININE 0.57 0.50 - 1.05 mg/dL EGFR 101 > OR = 60 mL/min/1.73m2 BUN/CREATININE RATIO SEE NOTE: 6 - 22 (calc) SODIUM 139 135 - 146 mmol/L POTASSIUM 4.3 3.5 - 5.3 mmol/L CHLORIDE 103 98 - 110 mmol/L CARBON DIOXIDE 25 20 - 32 mmol/L ELECTROLYTE BALANCE 11 7 - 17 mmol/L (calc) CALCIUM 9.7 8.6 - 10.4 mg/dL Hemoglobin A1C Collection Time: 09/16/24 8:27 AM Result Value Ref Range HEMOGLOBIN A1c 6.8 (H) <5.7 % eAG (mg/dL) 148 mg/dL eAG (mmol/L) 8.2 mmol/L Assessment/Plan Problem List Items Addressed This Visit ICD-10-CM Diabetes (Multi) E11.9 - Doing extremely well with her diabetes and will continue with the clinical pharmacy team -We discussed some strategies for avoiding hypoglycemia in the night and she will also discuss this with her pharmacy team -Hemoglobin A1c was fantastic at 6.8 Relevant Medications glipiZIDE (Glucotrol) 10 mg tablet losartan (Cozaar) 100 mg tablet metFORMIN XR 500 mg 24 hr tablet pravastatin (Pravachol) 20 mg tablet Other Relevant Orders Basic Metabolic Panel Hemoglobin A1C GERD (gastroesophageal reflux disease) K21.9 - Symptoms have remained stable and we are providing refills today Relevant Medications amLODIPine (Norvasc) 5 mg tablet esomeprazole (NexIUM) [address] capsule HTN (hypertension) I10 -Her blood pressure remains under good control so we will continue with her current antihypertensive regimen Relevant Medications amLODIPine (Norvasc) 5 mg tablet losartan (Cozaar) 100 mg tablet Hyperlipidemia LDL goal <100 E78.5 - She will get a fasting lipid profile just prior to her next follow-up visit Relevant Medications pravastatin (Pravachol) 20 mg tablet Other Relevant Orders Lipid Panel Vitamin D deficiency - Primary E55.9 - We will check a vitamin D level just prior to her next follow-up visit Relevant Orders Vitamin D 25-Hydroxy,Total (for eval of Vitamin D levels) Patient instructions As we discussed I am pleased with your checkup today and please be mindful of avoiding low sugars in the future. You might start with reducing the dose of your insulin in the evening especially if you are having recurring hypoglycemic events Please also discussed this with the clinical pharmacy team I provided refills on all the medicines we normally give you and please let us know if there are any issues with the pharmacy Please remember to call about getting in for your Pap exam We will see you back in 3 months for your Medicare wellness visit and have ordered lab work to be done just prior to that visit Kristen Caballero DO documented in this encounter [facility] Work Phone: 09-27-2024 Instructions Kristen Caballero DO - 09/27/2024 9:20 AM EDT Patient instructions As we discussed I am pleased with your checkup today and please be mindful of avoiding low sugars in the future. You might start with reducing the dose of your insulin in the evening especially if you are having recurring hypoglycemic events Please also discussed this with the clinical pharmacy team I provided refills on all the medicines we normally give you and please let us know if there are any issues with the pharmacy Please remember to call about getting in for your Pap exam We will see you back in 3 months for your Medicare wellness visit and have ordered lab work to be done just prior to that visit documented in this encounter [facility] Work Phone: 08-04-2024 History of Presen t illness Narrative Pharmacist Clinic: Diabetes Management Alina Patel is a 63 y.o. female was referred to Clinical Pharmacy Team for diabetes management. Referring Provider: Kristen Caballero DO Diabetes She presents for her follow-up diabetic visit. She has type 2 diabetes mellitus. Her disease course has been stable. There are no hypoglycemic associated symptoms. There are no diabetic associated symptoms. There are no hypoglycemic complications. There are no diabetic complications. Risk factors for coronary artery disease include diabetes mellitus, dyslipidemia, hypertension and obesity. She is compliant with treatment all of the time. Her weight is stable. Meal planning includes avoidance of concentrated sweets. Her home blood glucose trend is fluctuating minimally. An DEZ inhibitor/angiotensin II receptor eladio is being taken. Eye exam is current. Since last visit, Lantus dosing maintained at 78 units daily due to adequate glycemic control. She has continued efforts to reduce carbs in diet - salads with protein, nuts. Has chronic knee pain which limits physical activity, walking is tolerable. PMH of recurrent UTI's, reports UTI 2-3 x per year - avoiding SGLT2i LAB REVIEW Lab Results Component Value Date LDLCALC 69 12/17/2023 CREATININE 0.57 03/21/2024 Lab Results Component Value Date HGBA1C 7.5 (H) 03/21/2024 HGBA1C 10.6 (H) 12/17/2023 HGBA1C 9.5 (H) 09/04/2023 Lab Results Component Value Date TRIG 314 (H) 12/17/2023 TRIG 518 (H) 06/13/2022 TRIG 170 (H) 11/07/2021 The 10-year ASCVD risk score (Miranda WEBB, et al., 2019) is: 15.9% Values used to calculate the score: Age: 63 years Sex: Female Is Non- : No Diabetic: Yes Tobacco smoker: No Systolic Blood Pressure: 140 mmHg Is BP treated: Yes HDL Cholesterol: 55 mg/dL Total Cholesterol: 187 mg/dL DIABETES ASSESSMENT CURRENT PHARMACOTHERAPY - Metformin XR 1000mg twice daily - Glipizide 10 mg twice daily - Toujeo Max U-300 78 units once daily (bedtime) Allergies: Codeine and Lisinopril SECONDARY PREVENTION - Statin? Yes - DEZ-I/ARB? Yes - Aspirin? Yes HISTORICAL PHARMACOTHERAPY - Pioglitazone (aches, edema) - Victoza (replaced by Trulicity) - Januvia (ineffective) - Trulicity (suboptimal response) - Mounjaro (GI s/e) - Repaglinide (non adherence) SMBG MEASUREMENTS Patient is using: glucometer + Dexcom G6 (uses reader only, prefers G6 for abdominal sensor application) AM FBG avg 130-180 (rises in AM then reduces) Postprandial avg < 180 No lows < 70 Patient does not report symptoms of hypoglycemia. Is aware - will feel shaky and hungry. Patient does not report symptoms of hyperglycemia. AFFORDABILITY/ADHERENCE - No cost barriers - Frequent missed dosing with mealtime regimens Assessment/Plan Problem List Items Addressed This Visit Diabetes (Multi) Patients diabetes is significantly improved with most recent A1c of 7.5% (Goal < 7%) CONTINUE Toujeo Max U-300 78 units once daily CONTINUE Metformin XR 1000mg twice daily CONTINUE glipizide 10mg twice daily Reduce evening dose to 5mg for lower carb meals (salad, protein only) Reviewed hypoglycemia management rule of 15; has glucose tabs on hand Replace simple carbs with complex carbs - whole grain, whole wheat. Increase protein intake. Declined offer for nutrition referral. Adherence at present is estimated to be good. Efforts to improve adherence (if necessary) will be directed at dietary modifications: reduce carbohydrate intake, aim for 60 grams protein daily. Counseled patient on MOA, expectations, side effects, duration of therapy, administration, and monitoring parameters. Addressed all of patients questions and concerns at time of appointment. Encouraged to reach out to PharmD with additional needs. PharmD Follow-up: 09/29/24 9:20 AM (after A1c) PCP Follow-up: 09/27/24 Notify your healthcare provider if you have any of the following: -Diarrhea or vomiting for more than six hours -Blood sugar >300 mg/dL more than once -Low blood sugar (<70 mg/dL) -Questions about your medications Thank you, Laura Lynch, PharmD Continue all meds under the continuation of care with the referring provider and clinical pharmacy team. Verbal consent to manage patient's drug therapy was obtained. They were informed they may decline to participate or withdraw from participation in pharmacy services at any time. documented in this encounter [facility] Work Phone: 06-30-2024 History of Presen t illness Narrative Pharmacist Clinic: Diabetes Management Alina Patel is a 63 y.o. female was referred to Clinical Pharmacy Team for diabetes management. Referring Provider: Kristen Caballero DO Diabetes She presents for her follow-up diabetic visit. She has type 2 diabetes mellitus. Her disease course has been improving. There are no hypoglycemic associated symptoms. There are no diabetic associated symptoms. There are no hypoglycemic complications. There are no diabetic complications. Risk factors for coronary artery disease include diabetes mellitus, dyslipidemia, hypertension and obesity. She is compliant with treatment all of the time. Her weight is stable. Meal planning includes avoidance of concentrated sweets. There is no change in her home blood glucose trend. An DEZ inhibitor/angiotensin II receptor eldaio is being taken. Eye exam is current. Since last visit, Lantus reduced to from 78 to 70 units due to a few occurrences of hypoglycemia at night time. Since then she increased back to 78 units due to more frequent readings above 200. No lows in past month. She has continued efforts to reduce carbs in diet - salads with protein, nuts. Has chronic knee pain which limits physical activity, walking is tolerable. PMH of recurrent UTI's, reports UTI 2-3 x per year - avoiding SGLT2i LAB REVIEW Lab Results Component Value Date LDLCALC 69 12/17/2023 CREATININE 0.57 03/21/2024 Lab Results Component Value Date HGBA1C 7.5 (H) 03/21/2024 HGBA1C 10.6 (H) 12/17/2023 HGBA1C 9.5 (H) 09/04/2023 Lab Results Component Value Date TRIG 314 (H) 12/17/2023 TRIG 518 (H) 06/13/2022 TRIG 170 (H) 11/07/2021 The 10-year ASCVD risk score (Miranda WEBB, et al., 2019) is: 15.9% Values used to calculate the score: Age: 63 years Sex: Female Is Non- : No Diabetic: Yes Tobacco smoker: No Systolic Blood Pressure: 140 mmHg Is BP treated: Yes HDL Cholesterol: 55 mg/dL Total Cholesterol: 187 mg/dL DIABETES ASSESSMENT CURRENT PHARMACOTHERAPY - Metformin XR 1000mg twice daily - Glipizide 10 mg twice daily - Toujeo Max U-300 78 units once daily (bedtime) Allergies: Codeine and Lisinopril SECONDARY PREVENTION - Statin? Yes - DEZ-I/ARB? Yes - Aspirin? Yes HISTORICAL PHARMACOTHERAPY - Pioglitazone (aches, edema) - Victoza (replaced by Trulicity) - Januvia (ineffective) - Trulicity (suboptimal response) - Mounjaro (GI s/e) - Repaglinide (non adherence) SMBG MEASUREMENTS Patient is using: glucometer + Dexcom G6 (uses reader only, prefers G6 for abdominal sensor application) AM FBG avg 130-180 (rises in AM then reduces) AM 136 6 AM --> 200 9 AM without eating Postprandial avg < 180 No lows < 70 Patient does not report symptoms of hypoglycemia. Is aware - will feel shaky and hungry. Patient does not report symptoms of hyperglycemia. AFFORDABILITY/ADHERENCE - No cost barriers - Frequent missed dosing with mealtime regimens Assessment/Plan Problem List Items Addressed This Visit Diabetes (Multi) Patients diabetes is significantly improved with most recent A1c of 7.5% (Goal < 7%) CONTINUE Toujeo Max U-300 78 units once daily CONTINUE Metformin XR 1000mg twice daily CONTINUE glipizide 10mg twice daily Reduce evening dose to 5mg for lower carb meals (salad, protein only) Reviewed hypoglycemia management rule of 15; has glucose tabs on hand Replace simple carbs with complex carbs - whole grain, whole wheat. Increase protein intake. Declined offer for nutrition referral. Adherence at present is estimated to be good. Efforts to improve adherence (if necessary) will be directed at dietary modifications: reduce carbohydrate intake, aim for 60 grams protein daily. Counseled patient on MOA, expectations, side effects, duration of therapy, administration, and monitoring parameters. Addressed all of patients questions and concerns at time of appointment. Encouraged to reach out to PharmD with additional needs. PharmD Follow-up: 08/04/24 PCP Follow-up: 09/27/24 Notify your healthcare provider if you have any of the following: -Diarrhea or vomiting for more than six hours -Blood sugar >300 mg/dL more than once -Low blood sugar (<70 mg/dL) -Questions about your medications Thank you, Laura Lynch PharmD Continue all meds under the continuation of care with the referring provider and clinical pharmacy team. Verbal consent to manage patient's drug therapy was obtained. They were informed they may decline to participate or withdraw from participation in pharmacy services at any time. documented in this encounter [facility] Work Phone: 06-13-2024 Evaluation note Diagnosis Onset Date Resolution Back pain acute June 13 9:44am Segmental and somatic dysfunction of cervical region acute June 13, 2024 9:44am Segmental and somatic dysfunction of lumbar region acute June 13, 2024 9:44am Segmental and somatic dysfunction of pelvic region acute June 13, 2024 9:44am Segmental and somatic dysfunction of thoracic region acute June 13, 2024 9:44am DDD (degenerative disc disease), thoracolumbar chronic June 132024 9:44am Back pain acute July 11, 2024 9:25am Segmental and somatic dysfunction of cervical region acute July 11, 2024 9:25am Segmental and somatic dysfunction of lumbar region acute July 11, 2024 9:25am Segmental and somatic dysfunction of pelvic region acute July 11, 2024 9:25am Segmental and somatic dysfunction of thoracic region acute July 11, 2024 9:25am DDD (degenerative disc disease), thoracolumbar chronic June 9:25am Back pain acute August 08, 2024 9:41am Segmental and somatic dysfunction of cervical region acute August 08, 2024 9:41am Segmental and somatic dysfunction of lumbar region acute August 08, 2024 9:41am Segmental and somatic dysfunction of pelvic region acute August 08, 2024 9:41am Segmental and somatic dysfunction of thoracic region acute August 08, 2024 9:41am DDD (degenerative disc disease), thoracolumbar chronic July 9:41am Back pain acute September 05, 2024 9:44am Segmental and somatic dysfunction of cervical region acute September 05, 2024 9:44am Segmental and somatic dysfunction of lumbar region acute September 05, 2024 9:44am Segmental and somatic dysfunction of pelvic region acute September 05, 2024 9:44am Segmental and somatic dysfunction of thoracic region acute September 05, 2024 9:44am DDD (degenerative disc disease), thoracolumbar chronic August 9:44am Segmental and somatic dysfunction of cervical region acute October 03, 2024 9:52am Segmental and somatic dysfunction of lumbar region acute October 03, 2024 9:52am Segmental and somatic dysfunction of pelvic region acute October 03, 2024 9:52am Segmental and somatic dysfunction of thoracic region acute October 03, 2024 9:52am DDD (degenerative disc disease), thoracolumbar chronic October 032024 9:52am [facility] Work Phone: 1(384) 831-953104-03-2025 History of Present illness Narrative* Laura Lynch, PharmD - 06/02/2024 9:20 AM EDT Pharmacist Clinic: Diabetes Management Alina Patel is a 63 y.o. female was referred to Clinical Pharmacy Team for diabetes management. Referring Provider: Kristen Caballero DO Diabetes She presents for her follow-up diabetic visit. She has type 2 diabetes mellitus. Her disease coursehas been improving. There are no hypoglycemic associated symptoms. There are no diabetic associatedsymptoms. There are no hypoglycemic complications. There are no diabetic complications. Risk factors for coronary artery disease include diabetes mellitus, dyslipidemia, hypertension and obesity. Sheis compliant with treatment all of the time. Her weight is stable. Meal planning includes avoidanceof concentrated sweets. There is no change in her home blood glucose trend. An DEZ inhibitor/angiotensin II receptor eladio is being taken. Eye exam is current. Since last visit, had 2-3 low blood sugars overnight. Lowest was 59. Shaky and palpitations. Treated with glucose tabs and peanut butter crackers. Attributes to eating lower carb dinners. Otherwise reports blood sugar stable and less than 200. She has continued efforts to reduce carbs in diet - salads with protein, nuts. Has chronic knee pain which limits physical activity, walking is tolerable. PMH of recurrent UTI's, reports UTI 2-3 x per year - avoiding SGLT2i LAB REVIEW Lab Results Component Value Date LDLCALC 69 12/17/2023 CREATININE 0.57 03/21/2024 Lab Results Component Value Date HGBA1C 7.5 (H) 03/21/2024 HGBA1C 10.6 (H) 12/17/2023 HGBA1C 9.5 (H) 09/04/2023 Lab Results Component Value Date TRIG 314 (H) 12/17/2023 TRIG 518 (H) 06/13/2022 TRIG 170 (H) 11/07/2021 The 10-year ASCVD risk score (Miranda WEBB, et al., 2019) is: 15.9% Values used to calculate the score: Age: 63 years Sex: Female Is Non- : No Diabetic: Yes Tobacco smoker: No Systolic Blood Pressure: 140 mmHg Is BP treated: Yes HDL Cholesterol: 55 mg/dL Total Cholesterol: 187 mg/dL DIABETES ASSESSMENT CURRENT PHARMACOTHERAPY - Metformin XR 1000mg twice daily - Glipizide 10 mg twice daily - Toujeo Max U-300 78 units once daily (bedtime) Allergies: Codeine and Lisinopril SECONDARY PREVENTION - Statin? Yes - DEZ-I/ARB? Yes - Aspirin? Yes HISTORICAL PHARMACOTHERAPY - Pioglitazone (aches, edema) - Victoza (replaced by Trulicity) - Januvia (ineffective) - Trulicity (suboptimal response) - Mounjaro (GI s/e) - Repaglinide (non adherence) SMBG MEASUREMENTS Patient is using: glucometer + Dexcom G6 (uses reader only, prefers G6 for abdominal sensor application) AM FBG avg 130-180 (rises in AM then reduces) Postprandial avg < 180 2-3 hypoglycemic event < 70, treated appropriately Patient does not report symptoms of hypoglycemia. Is aware - will feel shaky and hungry. Patient does not report symptoms of hyperglycemia. AFFORDABILITY/ADHERENCE - No cost barriers - Frequent missed dosing with mealtime regimens Assessment/Plan Problem List Items Addressed This Visit Diabetes (Multi) Patients diabetes is significantly improved with most recent A1c of 7.5% (Goal < 7%) DECREASE Toujeo Max U-300 to 70 units once daily due to night time lows CONTINUE Metformin XR 1000mg twice daily CONTINUE glipizide 10mg twice daily Reduce evening dose to 5mg for lower carb meals (salad, protein only) Reviewed hypoglycemia management rule of 15; has glucose tabs on hand Replace simple carbs with complex carbs - whole grain, whole wheat. Increase protein intake. Declined offer for nutrition referral. Adherence at present is estimated to be good. Efforts to improve adherence (if necessary) will be directed at dietary modifications: reduce carbohydrate intake, aim for 60 grams protein daily . Counseled patient on MOA, expectations, side effects, duration of therapy, administration, and monitoring parameters. Addressed all of patients questions and concerns at time of appointment. Encouraged to reach out toPharmD with additional needs. PharmD Follow-up: 06/30/24 PCP Follow-up: 09/27/24 Notify your healthcare provider if you have any of the following: -Diarrhea or vomiting for more than six hours -Blood sugar >300 mg/dL more than once -Low blood sugar (<70 mg/dL) -Questions about your medications Thank you, Laura Lynch PharmD Continue all meds under the continuation of care with the referring provider and clinical pharmacy team. Verbal consent to manage patient's drug therapy was obtained. They were informed they may decline to participate or withdraw from participation in pharmacy services at any time. [facility]: [phone] Evaluation + Plan note* Assessment & Plan Note - Kristen Caballero DO - 05/23/2024 4:36 PM EDTAssociated Problem(s): Acute non-recurrent maxillary sinusitis -She has classic features for sinus infection -We discussed prescribing amoxicillin but she indicates that she does very well and best by taking azithromycin. I am sending in the prescription and have also recommended [id number] plain guaifenesin as directed. She will call if her condition is not improving or does not clear [facility] Work Phone: [phone]) 961-657903-24-2025 Miscellaneous Notes* Assessment & Plan Note - Kristen Caballero DO - 05/23/2024 4:36 PM EDTAssociated Problem(s): Acute non-recurrent maxillary sinusitis -She has classic features for sinus infection -We discussed prescribing amoxicillin but she indicates that she does very well and best by taking azithromycin. I am sending in the prescription and have also recommended jqxa-sju-tqhywyk plain guaifenesin as directed. She will call if her condition is not improving or does not clear documented in this [facility] Work Phone: [phone]) 364-401403-18-2025 Evaluation note* Diagnosis Onset Date Resolution Status Admit Date Back pain acute May 17 9:08am Segmental and somatic dysfunction of cervical region acute [facility] 2024 9:08am Segmental and somatic dysfunction of lumbar region acute [facility] 2024 9:08am Segmental and somatic dysfunction of pelvic region acute [facility] 2024 9:08am Segmental and somatic dysfunction of thoracic region acute [facility] 2024 9:08am DDD (degenerative disc disea se), thoracolumbar chronic May 17, 2024 9:08am Back pain acute June 13 9:44am Segmental and somatic dysfunction of cervical region [facility] 9:44am Segmental and somatic dysfunction of lumbar region acute Apr [place] 2024 9:44am Segmental and somatic dysfunction of pelvic region acute Apr [facility] 2024 9:44am Segmental and somatic dysfunction of thoracic region [facility]24 9:44am DDD (degenerative disc disea se), thoracolumbar chronic June 13, 2024 9:44am Back pain acute July 11, 2024 9:25am Segmental and somatic dysfunction of cervical region acute [facility] 2024 9:25am Segmental and somatic dysfunction of lumbar region acute July 11, 2024 9:25am Segmental and somatic dysfunction of pelvic region acute July 11, 2024 9:25am Segmental and somatic dysfunction of thoracic region acute [facility] 2024 9:25am DDD (degenerative disc disea se), thoracolumbar chronic July 11, 2024 9 :25am Back pain acute August 08, 2024 9:41am Segmental and somatic dysfunction of cervical region acute J une 2024 9:41am Segmental and somatic dysfunction of lumbar region acute Jul 9:41am Segmental and somatic dysfunction of pelvic region acute Jul 9:41am Segmental and somatic dysfunction of thoracic region acute J une 2024 9:41am DDD (degenerative disc disea se), thoracolumbar chronic August 08, 2024 9 :41am Segmental and somatic dysfunction of cervical region acute J yoana2024 9:44am Segmental and somatic dysfunction of lumbar region acute Aug 9:44am Segmental and somatic dysfunction of pelvic region acute Aug 9:44am Segmental and somatic dysfunction of thoracic region acute J 2024 9:44am [facility] Work Phone: 1([phone] 595-936503-06-2025 History of Present illness Narrative* Laura Lynch, PharmD - 05/05/2024 9:20 AM EST Pharmacist Clinic: Diabetes Management Alina Patel is a 63 y.o. female was referred to Clinical Pharmacy Team for diabetes management. Referring Provider: Kristen Caballero DO Diabetes She presents for her follow-up diabetic visit. She has type 2 diabetes mellitus. Her disease coursehas been improving. There are no hypoglycemic associated symptoms. There are no diabetic associatedsymptoms. There are no hypoglycemic complications. There are no diabetic complications. Risk factors for coronary artery disease include diabetes mellitus, dyslipidemia, hypertension and obesity. Sheis compliant with treatment all of the time. Her weight is stable. Meal planning includes avoidanceof concentrated sweets. An DEZ inhibitor/angiotensin II receptor eladio is being taken. Eye exam is current. Since last visit, reports overall blood sugars remain stable and rarely > 200. Had a low of 59 yesterday in late afternoon due to not eating for dental procedure. Took 2 glucose tabs and half glass pepsi. She rechecked with fingerstick which was 92. She did feel shaky and had aheadache. She has continued efforts to reduce carbs in diet - salads with protein, nuts Has chronic knee pain which limits physical activity, walking is tolerable. Looking into silver sneakers. PMH of recurrent UTI's, reports UTI 2-3 x per year - avoiding SGLT2i LAB REVIEW Lab Results Component Value Date LDLCALC 69 12/17/2023 CREATININE 0.57 03/21/2024 Lab Results Component Value Date HGBA1C 7.5 (H) 03/21/2024 HGBA1C 10.6 (H) 12/17/2023 HGBA1C 9.5 (H) 09/04/2023 Lab Results Component Value Date TRIG 314 (H) 12/17/2023 TRIG 518 (H) 06/13/2022 TRIG 170 (H) 11/07/2021 The 10-year ASCVD risk score (Miranda DK, et al., 2019) is: 12.3% Values used to calculate the score: Age: 63 years Sex: Female Is Non- : No Diabetic: Yes Tobacco smoker: No Systolic Blood Pressure: 122 mmHg Is BP treated: Yes HDL Cholesterol: 55 mg/dL Total Cholesterol: 187 mg/dL DIABETES ASSESSMENT CURRENT PHARMACOTHERAPY - Metformin XR 1000mg twice daily - Glipizide 10 mg twice daily - Toujeo Max U-300 78 units once daily (bedtime) Allergies: Codeine and Lisinopril SECONDARY PREVENTION - Statin? Yes - DEZ-I/ARB? Yes - Aspirin? Yes HISTORICAL PHARMACOTHERAPY - Pioglitazone (aches, edema) - Victoza (replaced by Trulicity) - Januvia (ineffective) - Trulicity (suboptimal response) - Mounjaro (GI s/e) - Repaglinide (non adherence) SMBG MEASUREMENTS Patient is using: glucometer + Dexcom G6 (uses reader only, no madhuri) AM FBG avg 160-180 (rises in AM then reduces) Postprandial avg < 180 One hypoglycemic event < 70 treated appropriately Patient does not report symptoms of hypoglycemia. Is aware - will feel shaky and hungry. Patient does not report symptoms of hyperglycemia. AFFORDABILITY/ADHERENCE - No cost barriers - Frequent missed dosing with mealtime regimens Assessment/Plan Problem List Items Addressed This Visit Diabetes (Multi) Patients diabetes is significantly improved with most recent A1c of 7.5% (Goal < 7%) CONTINUE Toujeo Max U-300 78 units once daily Single hypoglycemic event attributed to prolonged fasting state. Advised to monitor for further lows and if re-occurs will reduce Toujeo dosing. CONTINUE Metformin XR 1000mg twice daily CONTINUE glipizide 10mg twice daily Reviewed hypoglycemia management rule of 15; has glucose tabs on hand Replace simple carbs with complex carbs - whole grain, whole wheat. Increase protein intake. Declined offer for nutrition referral. Future consideration: Declined endo referral for now. Advised if we reach basal insulin dosing over 80 units per day we may need to re-visit mealtime insulin/endo referral. Other pharmacotherapy options limited due to past side effects (see historical above). Counseled on med MOA, administration, side effects, monitoring Adherence at present is estimated to be good. Efforts to improve adherence (if necessary) will be directed at dietary modifications: reduce carbohydrate intake, aim for 60 grams protein daily . PharmD Follow-up: 06/02/24 9:20 AM PCP Follow-up: 09/27/24 Notify your healthcare provider if you have any of the following: -Diarrhea or vomiting for more than six hours -Blood sugar >300 mg/dL more than once -Low blood sugar (<70 mg/dL) -Questions about your medications Thank you, Laura Lynch, Eh Continue all meds under the continuation of care with the referring provider and clinical pharmacy team. Verbal consent to manage patient's drug therapy was obtained. They were informed they may decline to participate or withdraw from participation in pharmacy services at any time. documented in this [facility] Work Phone: 1(424) 529-244702-24-2025 Evaluation note* Diagnosis Onset Date Resolution Status Admit Date Back pain acute April 25, 2024 12:55pm Neck pain acute April 25, 2024 12:55pm Segmental and somatic dysfunction of cervical region acute F ebruary 2024 12:55pm Segmental and somatic dysfunction of lumbar region acute Feb ruary 2024 12:55pm Segmental and somatic dysfunction of pelvic region acute b ruary 2024 12:55pm Segmental and somatic dysfunction of thoracic region acute F ebruary 2024 12:55pm DDD (degenerative disc disease), thoracolumbar chronic April 25, 2024 12:55pm Back pain acute May 17 9:08am Segmental and somatic dysfunction of cervical region acute [facility] 2024 9:08am Segmental and somatic dysfunction of lumbar region acute [facility] 2024 9:08am Segmental and somatic dysfunction of pelvic region acute [facility] 2024 9:08am Segmental and somatic dysfunction of thoracic region acute [facility] 2024 9:08am DDD (degenerative disc disease), thoracolumbar chronic May 172024 9:08am Back pain acute June 13 9:44am Segmental and somatic dysfunction of cervical region acute [facility] 2024 9:44am Segmental and somatic dysfunction of lumbar region acute Apr il 2024 9:44am Segmental and somatic dysfunction of pelvic region acute Apr il 2024 9:44am Segmental and somatic dysfunction of thoracic region acute A [facility] 2024 9:44am DDD (degenerative disc disease), thoracolumbar chronic June 132024 9:44am Back pain acute July 11, 2024 9:25am Segmental and somatic dysfunction of cervical region acute [facility] 2024 9:25am Segmental and somatic dysfunction of lumbar region acute July 11, 2024 9:25am Segmental and somatic dysfunction of pelvic region acute July 11, 2024 9:25am Segmental and somatic dysfunction of thoracic region acute [facility] 2024 9:25am DDD (degenerative disc disease), thoracolumbar chronic June 9:25am Segmental and somatic dysfunction of cervical region acute J une 2024 9:41am Segmental and somatic dysfunction of lumbar region acute [facility] 2024 9:41am Segmental and somatic dysfunction of pelvic region acute [facility] 2024 9:41am Segmental and somatic dysfunction of thoracic region acute J une 2024 9:41am DDD (degenerative disc disease), thoracolumbar chronic July 9:41am [facility] Work Phone: 1([phone]) 319-947402-06-2025 History of Present illness Narrative* Laura Lynch, PharmD - 04/07/2024 9:20 AM EST Pharmacist Clinic: Diabetes Management Alina Patel is a 63 y.o. female was referred to Clinical Pharmacy Team for diabetes management. Referring Provider: Kristen Caballero DO Diabetes She presents for her follow-up diabetic visit. She has type 2 diabetes mellitus. There are no hypoglycemic associated symptoms. There are no diabetic associated symptoms. There are no hypoglycemic complications. There are no diabetic complications. Risk factors for coronary artery disease include diabetes mellitus, dyslipidemia, hypertension and obesity. She is compliant with treatment all of thetime. Her weight is stable. When asked about meal planning, she reported none. Her home blood glucose trend is decreasing steadily. Her overall blood glucose range is >200 mg/dl. An DEZ inhibitor/angiotensin II receptor eladio is being taken. Eye exam is current. Since last visit, Toujeo increased to 78 units daily. Repeat A1c down from 10.6% to 7.5% !! Urine albumin normal. Reports overall blood sugars improved and more stable. Had one day consistently 130-150 all day, checked with fingerstick and was the same. She has continued efforts to reduce carbs in diet - salads with protein, nuts Has chronic knee pain which limits physical activity, walking is tolerable. Looking into silver sneakers. PMH of recurrent UTI's, reports UTI 2-3 x per year - avoiding SGLT2i LAB REVIEW Lab Results Component Value Date LDLCALC 69 12/17/2023 CREATININE 0.57 03/21/2024 Lab Results Component Value Date HGBA1C 7.5 (H) 03/21/2024 HGBA1C 10.6 (H) 12/17/2023 HGBA1C 9.5 (H) 09/04/2023 Lab Results Component Value Date TRIG 314 (H) 12/17/2023 TRIG 518 (H) 06/13/2022 TRIG 170 (H) 11/07/2021 The 10-year ASCVD risk score (Miranda WEBB, et al., 2019) is: 12.3% Values used to calculate the score: Age: 63 years Sex: Female Is Non- : No Diabetic: Yes Tobacco smoker: No Systolic Blood Pressure: 122 mmHg Is BP treated: Yes HDL Cholesterol: 55 mg/dL Total Cholesterol: 187 mg/dL DIABETES ASSESSMENT CURRENT PHARMACOTHERAPY - Metformin XR 1000mg twice daily (AM + dinner) - Glipizide 10 mg twice daily - Toujeo Max U-300 78 units once daily (bedtime) Allergies: Codeine and Lisinopril SECONDARY PREVENTION - Statin? Yes - DEZ-I/ARB? Yes - Aspirin? Yes HISTORICAL PHARMACOTHERAPY - Pioglitazone (aches, edema) - Victoza (replaced by Trulicity) - Januvia (ineffective) - Trulicity (suboptimal response) - Mounjaro (GI s/e) - Repaglinide (non adherence) SMBG MEASUREMENTS Patient is using: glucometer The patient is currently checking the blood glucose once daily. AM FBG avg 160-200 (rises in AM then reduces) Postprandial avg < 200 Lowest upper 70's overnight No lows <70 Patient does not report symptoms of hypoglycemia. Is aware - will feel shaky and hungry. Patient does not report symptoms of hyperglycemia. AFFORDABILITY/ADHERENCE - No cost barriers - Frequent missed dosing with mealtime regimens Assessment/Plan Problem List Items Addressed This Visit Diabetes (Multi) Patients diabetes is significantly improved with most recent A1c of 7.5% (Goal < 7%) CONTINUE Toujeo Max U-300 78 units once daily CONTINUE Metformin XR 1000mg twice daily CONTINUE glipizide 10mg twice daily Reviewed hypoglycemia management; has glucose tabs on hand Replace simple carbs with complex carbs - whole grain, whole wheat. Increase protein intake. Declined offer for nutrition referral. Future consideration: Declined endo referral for now. Advised if we reach basal insulin dosing over 80 units per day we may need to re-visit mealtime insulin/endo referral. Other pharmacotherapy options limited due to past side effects (see historical above). Counseled on med MOA, administration, side effects, monitoring Adherence at present is estimated to be good. Efforts to improve adherence (if necessary) will be directed at dietary modifications: reduce carbohydrate intake, aim for 60 grams protein daily . PharmD Follow-up: 05/05/24 9 :20 AM PCP Follow-up: 09/27/24 Notify your healthcare provider if you have any of the following: -Diarrhea or vomiting for more than six hours -Blood sugar >300 mg/dL more than once -Low blood sugar (<70 mg/dL) -Questions about your medications Thank you, Laura Lynch, Eh Continue all meds under the continuation of care with the referring provider and clinical pharmacy team. Verbal consent to manage patient's drug therapy was obtained. They were informed they may decline to participate or withdraw from participation in pharmacy services at any time. [facility]: [phone]) [phone] Evaluation + Plan note* Assessment & Plan Note - Kristen Caballero DO - 03/29/2024 8:08 AM ESTAssociated Problem(s): Pill dysphagia -She has had difficulties swallowing pills and we have had to resort to giving her smaller sized tablets twice a day for both her amlodipine and cholesterol medication [facility] Work Phone: [phone] Evaluation + Plan note* Assessment & Plan Note - Kristen Caballero DO - 03/29/2024 8:08 AM ESTAssociated Problem(s): GERD (gastroesophageal reflux disease) -Her symptoms are stable and we will continue with her current medical regimen [facility] Work Phone: [phone] Evaluation + Plan note* Assessment & Plan Note - Kristen Caballero DO - 03/29/2024 8:08 AM ESTAssociated Problem(s): Diabetes (Multi) -Her hemoglobin A1c has improved at 7.5 -Urine microalbumin study is within normal range -She will continue with the clinical pharmacy team -We invite her to return in 6 months for another checkup with hemoglobin A1c [facility] Work Phone: [phone] 167-840601-28-2025 Miscellaneous Notes* Assessment & Plan Note - Kristen Caballero DO - 03/29/2024 8:08 AM ESTAssociated Problem(s): Pill dysphagia -She has had difficulties swallowing pills and we have had to resort to giving her smaller sized tablets twice a day for both her amlodipine and cholesterol medication * Assessment & Plan Note - Kristen Caballero DO - 03/29/2024 8:08 AM EST Associated Problem(s): GERD (gastroesophageal reflux disease) -Her symptoms are stable and we will continue with her current medical regimen * Assessment & Plan Note - Kristen Caballero DO - 03/29/2024 8:08 AM EST Associated Problem(s): Diabetes (Multi) -Her hemoglobin A1c has improved at 7.5 -Urine microalbumin study is within normal range -She will continue with the clinical pharmacy team -We invite her to return in 6 months for another checkup with hemoglobin A1c * Assessment & Plan Note - Kristen Caballero DO - 03/29/2024 8:07 AM EST Associated Problem(s): Class 2 severe obesity with body mass index (BMI) of 35 to 39.9 with seriouscomorbidity -We encouraged her to eat a healthy diet, exercise regularly, and try to get his close to ideal body weight as possible * Assessment & Plan Note - Kristen Caballero DO - 03/29/2024 8:07 AM EST Associated Problem(s): Carotid disease, bilateral (CMS-HCC) -We will continue to aggressively modify risk factors and we will check carotid studies periodically -Her condition has been stable * Assessment & Plan Note - Kristen Caballero DO - 03/29/2024 8:06 AM EST Associated Problem(s): HTN (hypertension) -Her blood pressure control is excellent so we will continue with her current antihypertensive regimen [facility] [place] [facility]: [phone] 271-301701-28-2025 Evaluation + Plan note* Assessment & Plan Note - Kristen Caballero DO - 03/29/2024 8:07 AM ESTAssociated Problem(s): Class 2 severe obesity with body mass index (BMI) of 35 to 39.9 with serious comorbidity -We encouraged her to eat a healthy diet, exercise regularly, and try to get his close to ideal body weight as possible [facility] Work Phone: [phone] 350-700001-28-2025 Evaluation + Plan note* Assessment & Plan Note - Kristen Caballero DO - 03/29/2024 8:07 AM ESTAssociated Problem(s): Carotid disease, bilateral ([facility]) -We will continue to aggressively modify risk factors and we will check carotid studies periodically -Her condition has been stable [facility] Work Phone: [phone] 470-656201-28-2025 Evaluation + Plan note* Assessment & Plan Note - Kristen Caballero DO - 03/29/2024 8:06 AM ESTAssociated Problem(s): HTN (hypertension) -Her blood pressure control is excellent so we will continue with her current antihypertensive regimen [facility] Work Phone: [phone] History of Present illness Narrative* Kristen Caballero DO - 03/29/2024 8:00 AM EST Subjective Patient ID: Alina Patel is a 63 y.o. female who presents for Follow-up (BLOOD PRESSURE AND BLOOD SUGAR READINGS). HPI She is here today for her routine checkup. She has been doing remarkably well in recent times. We are reminded that she is enrolled in the pharmacy endocrine program and has made great strides in controlling her blood glucose levels. Her hemoglobin A1c was 7.5 which is fantastic. She does use a continuous glucose monitoring system and we will continue to communicate with the pharmacist regarding medication adjustments. Her blood pressure is also excellent today and we are providing refills on all of her medications. She does have problems with swallowing pills and has resorted to taking the amlodipine 5 mg twice a day and also her cholesterol medication has had to be given in smaller doses twice a day. We did conduct a full review of systems and if everything goes according to plan we will see her back in 6 months for another checkup. I have also strongly recommended she get the pneumonia vaccine but she declines today. Review of Systems Constitutional: Negative for fatigue. Respiratory: Negative for cough, chest tightness, shortness of breath and wheezing. Cardiovascular: Negative for chest pain, palpitations and leg swelling. Gastrointestinal: Negative for abdominal pain, blood in stool, diarrhea, nausea and vomiting. Musculoskeletal: Negative for arthralgias and back pain. Objective Physical Exam Vitals and nursing note reviewed. Constitutional: General: She is not in acute distress. Appearance: Normal appearance. HENT: Head: Normocephalic and atraumatic. Eyes: Conjunctiva/sclera: Conjunctivae normal. Cardiovascular: Rate and Rhythm: Normal rate and regular rhythm. Heart sounds: Normal heart sounds. Pulmonary: Effort: No respiratory distress. Breath sounds: No wheezing. Abdominal: Palpations: Abdomen is soft. Tenderness: There is no abdominal tenderness. There is no guarding. Musculoskeletal: General: No swelling. Normal range of motion. Skin: General: Skin is warm and dry. Neurological: General: No focal deficit present. Mental Status: She is alert and oriented to person, place, and time. Psychiatric: Behavior: Behavior normal. Recent Results (from the past 4 weeks) Basic Metabolic Panel Collection Time: 03/21/24 7:59 AM Result Value Ref Range Glucose 250 (H) 74 - 99 mg/dL Sodium 138 136 - 145 mmol/L Potassium 4.2 3.5 - 5.3 mmol/L Chloride 104 98 - 107 mmol/L Bicarbonate 24 21 - 32 mmol/L Anion Gap 14 10 - 20 mmol/L Urea Nitrogen 27 (H) 6 - 23 mg/dL Creatinine 0.57 0.50 - 1.05 mg/dL eGFR >90 >60 mL/min/1.73m*2 Calcium 9.5 8.6 - 10.3 mg/dL Hemoglobin A1C Collection Time: 03/21/24 7:59 AM Result Value Ref Range Hemoglobin A1C 7.5 (H) See comment % Estimated Average Glucose 169 Not Established mg/dL Albumin-Creatinine Ratio, Urine Random Collection Time: 03/21/24 8:08 AM Result Value Ref Range Albumin, Urine Random 10.1 Not established mg/L Creatinine, Urine Random 102.3 20.0 - 320.0 mg/dL Albumin/Creatinine Ratio 9.9 <30.0 ug/mg Creat Assessment/Plan Problem List Items Addressed This Visit ICD-10-CM Diabetes (Multi) E11.9 -Her hemoglobin A1c has improved at 7.5 -Urine microalbumin study is within normal range -She will continue with the clinical pharmacy team -We invite her to return in 6 months for another checkup with hemoglobin A1c Relevant Medications metFORMIN XR 500 mg 24 hr tablet Other Relevant Orders Basic Metabolic Panel Hemoglobin A1C GERD (gastroesophageal reflux disease) K21.9 -Her symptoms are stable and we will continue with her current medical regimen Relevant Medications esomeprazole (NexIUM) [address] capsule HTN (hypertension) I10 -Her blood pressure control is excellent so we will continue with her current antihypertensive regimen Relevant Medications amLODIPine (Norvasc) 5 mg tablet losartan (Cozaar) 100 mg tablet Hyperlipidemia LDL goal <100 E78.5 Relevant Medications pravastatin (Pravachol) 20 mg tablet Carotid disease, bilateral ([facility]) I77.9 -We will continue to aggressively modify risk factors and we will check carotid studies periodically -Her condition has been stable Pill dysphagia - Primary R13.10 -She has had difficulties swallowing pills and we have had to resort to giving her smaller sized tablets twice a day for both her amlodipine and cholesterol medication Class 2 severe obesity with body mass index (BMI) of 35 to 39.9 with serious comorbidity E66.812, E66.01 -We encouraged her to eat a healthy diet, exercise regularly, and try to get his close to ideal body weight as possible Patient instructions As we discussed I am very pleased with your checkup today and keep up the great work with monitoring your sugars and making medication adjustments as necessary. Please do not hesitate to reach out ifyou have any questions or concerns and we will see you back in 6 months for another checkup. I haveordered lab work to be done just prior to that visit and today you will receive a paper with your lab orders on it. Kristen Caballero DO [facility] [place] [facility]: [phone] Instructions* Patient Instructions* Kristen Caballero DO - 03/29/2024 8:00 AM EST Patient instructions As we discussed I am very pleased with your checkup today and keep up the great work with monitoring your sugars and making medication adjustments as necessary. Please do not hesitate to reach out ifyou have any questions or concerns and we will see you back in 6 months for another checkup. I haveordered lab work to be done just prior to that visit and today you will receive a paper with your lab orders on it. [facility] Phone: [phone]) [phone] History of Present illness Narrative* Laura Lynch, PharmD - 03/24/2024 11:00 AM EST Pharmacist Clinic: Diabetes Management Alina Patel is a 63 y.o. female was referred to Clinical Pharmacy Team for diabetes management. Referring Provider: Kristen Caballero DO Diabetes She presents for her follow-up diabetic visit. She has type 2 diabetes mellitus. There are no hypoglycemic associated symptoms. There are no diabetic associated symptoms. There are no hypoglycemic complications. There are no diabetic complications. Risk factors for coronary artery disease include diabetes mellitus, dyslipidemia, hypertension and obesity. She is compliant with treatment all of thetime. Her weight is stable. When asked about meal planning, she reported none. Her home blood glucose trend is decreasing steadily. Her overall blood glucose range is >200 mg/dl. An DEZ inhibitor/angiotensin II receptor eladio is being taken. Eye exam is current. Since last visit, Toujeo increased to 78 units daily. Repeat A1c down from 10.6% to 7.5% !! Urine albumin normal. Reports overall blood sugars less controlled past two weeks despite diet monitoring, possibly attributed to increase stressors. BG elevations in AM prior to breakfast, possible bernardo phenomena. She has continued efforts to reduce carbs in diet - salads with protein, nuts Has chronic knee pain which limits physical activity, walking is tolerable. Looking into silver sneakers. PMH of recurrent UTI's, reports UTI 2-3 x per year - avoiding SGLT2i LAB REVIEW Lab Results Component Value Date LDLCALC 69 12/17/2023 CREATININE 0.57 03/21/2024 Lab Results Component Value Date HGBA1C 7.5 (H) 03/21/2024 HGBA1C 10.6 (H) 12/17/2023 HGBA1C 9.5 (H) 09/04/2023 Lab Results Component Value Date TRIG 314 (H) 12/17/2023 TRIG 518 (H) 06/13/2022 TRIG 170 (H) 11/07/2021 The 10-year ASCVD risk score (Miranda WEBB, et al., 2019) is: 12.3% Values used to calculate the score: Age: 63 years Sex: Female Is Non- : No Diabetic: Yes Tobacco smoker: No Systolic Blood Pressure: 122 mmHg Is BP treated: Yes HDL Cholesterol: 55 mg/dL Total Cholesterol: 187 mg/dL DIABETES ASSESSMENT CURRENT PHARMACOTHERAPY - Metformin XR 1000mg twice daily (AM + dinner) - Glipizide IR 5mg in AM and 10mg in PM - Toujeo Max U-300 78 units once daily (bedtime) Allergies: Codeine and Lisinopril SECONDARY PREVENTION - Statin? Yes - DEZ-I/ARB? Yes - Aspirin? Yes HISTORICAL PHARMACOTHERAPY - Pioglitazone (aches, edema) - Victoza (replaced by Trulicity) - Januvia (ineffective) - Trulicity (suboptimal response) - Mounjaro (GI s/e) - Repaglinide (non adherence) SMBG MEASUREMENTS Patient is using: glucometer The patient is currently checking the blood glucose once daily. AM FBG avg 160-200 (up from 150) Postprandial avg 200-250 No lows <70 Patient does not report symptoms of hypoglycemia. Is aware - will feel shaky and hungry. Patient does not report symptoms of hyperglycemia. AFFORDABILITY/ADHERENCE - No cost barriers - Frequent missed dosing with mealtime regimens Assessment/Plan Problem List Items Addressed This Visit Diabetes (Multi) Patients diabetes is significantly improved with most recent A1c of 7.5% (Goal < 7%) CONTINUE Toujeo Max U-300 78 units once daily CONTINUE Metformin XR 1000mg twice daily INCREASE glipizide to 10mg twice daily Reviewed hypoglycemia management; has glucose tabs on hand Replace simple carbs with complex carbs - whole grain, whole wheat. Increase protein intake. Declined offer for nutrition referral. Future consideration: Declined endo referral for now. Advised if we reach basal insulin dosing over 80 units per day we may need to re-visit mealtime insulin/endo referral. Other pharmacotherapy options limited due to past side effects (see historical above). Counseled on med MOA, administration, side effects, monitoring Adherence at present is estimated to be good. Efforts to improve adherence (if necessary) will be directed at dietary modifications: reduce carbohydrate intake, aim for 60 grams protein daily . PharmD Follow-up: 04/07/24 9:20 AM PCP Follow-up: 03/29/24 Notify your healthcare provider if you have any of the following: -Diarrhea or vomiting for more than six hours -Blood sugar >300 mg/dL more than once -Low blood sugar (<70 mg/dL) -Questions about your medications Thank you, Laura Lynch PharmD Continue all meds under the continuation of care with the referring provider and clinical pharmacy team. Verbal consent to manage patient's drug therapy was obtained. They were informed they may decline to participate or withdraw from participation in pharmacy services at any time. documented in this [facility] Work Phone: [phone]) 465-760601-16-2025 History of Present illness Narrative* Laura Lynch PharmD - 03/17/2024 9:20 AM EST Pharmacist Clinic: Diabetes Management Alina Patel is a 63 y.o. female was referred to Clinical Pharmacy Team for diabetes management. Referring Provider: Kristen Caballero DO Diabetes She presents for her follow-up diabetic visit. She has type 2 diabetes mellitus. There are no hypoglycemic associated symptoms. There are no diabetic associated symptoms. There are no hypoglycemic complications. There are no diabetic complications. Risk factors for coronary artery disease include diabetes mellitus, dyslipidemia, hypertension and obesity. She is compliant with treatment all of thetime. Her weight is stable. When asked about meal planning, she reported none. Her home blood glucose trend is decreasing steadily. Her overall blood glucose range is >200 mg/dl. An DEZ inhibitor/angiotensin II receptor eladio is being taken. Eye exam is current. Since last visit, started dexcom G6 for glucose monitoring. No issues with irritation at sensor site that she had with FS Tri, prefers abdomen application. Reports overall blood sugars less controlled despite diet monitoring. BG elevations in AM prior to breakfast, sounds like bernardo phenomena. She has continued efforts to reduce carbs in diet - salads with protein. Has chronic knee pain which limits physical activity, walking is tolerable. Looking into silver sneakers. PMH of recurrent UTI's, reports UTI 2-3 x per year - avoiding SGLT2i LAB REVIEW Lab Results Component Value Date LDLCALC 69 12/17/2023 CREATININE 0.50 12/17/2023 Lab Results Component Value Date HGBA1C 10.6 (H) 12/17/2023 HGBA1C 9.5 (H) 09/04/2023 HGBA1C 9.3 (H) 05/08/2023 Lab Results Component Value Date TRIG 314 (H) 12/17/2023 TRIG 518 (H) 06/13/2022 TRIG 170 (H) 11/07/2021 The 10-year ASCVD risk score (Miranda WEBB, et al., 2019) is: 12.3% Values used to calculate the score: Age: 63 years Sex: Female Is Non- : No Diabetic: Yes Tobacco smoker: No Systolic Blood Pressure: 122 mmHg Is BP treated: Yes HDL Cholesterol: 55 mg/dL Total Cholesterol: 187 mg/dL DIABETES ASSESSMENT CURRENT PHARMACOTHERAPY - Metformin XR 1000mg twice daily (AM + dinner) - Glipizide IR 5mg in AM and 10mg in PM - Toujeo Max U-300 74 units once daily (bedtime) Allergies: Codeine and Lisinopril SECONDARY PREVENTION - Statin? Yes - DEZ-I/ARB? Yes - Aspirin? Yes HISTORICAL PHARMACOTHERAPY - Pioglitazone (aches, edema) - Victoza (replaced by Trulicity) - Januvia (ineffective) - Trulicity (suboptimal response) - Mounjaro (GI s/e) - Repaglinide (non adherence) SMBG MEASUREMENTS Patient is using: glucometer The patient is currently checking the blood glucose once daily. AM FBG avg 150 Postprandial avg 200-250 No lows <70 Patient does not report symptoms of hypoglycemia. Is aware - will feel shaky and hungry. Patient does not report symptoms of hyperglycemia. AFFORDABILITY/ADHERENCE - No cost barriers - Frequent missed dosing with mealtime regimens Assessment/Plan Problem List Items Addressed This Visit Diabetes (Multi) Relevant Medications insulin glargine (Toujeo Max U-300 SoloStar) 300 unit/mL (3 mL) injection Other Relevant Orders Referral to Clinical Pharmacy Patients diabetes is poorly controlled with most recent A1c of 10.6% (Goal < 7%). Improving per home readings. INCREASE Toujeo Max U-300 78 units once daily CONTINUE Metformin XR 1000mg twice daily and glipizide 5mg with breakfast and 10mg with dinner Reviewed hypoglycemia management; has glucose tabs on hand Replace simple carbs with complex carbs - whole grain, whole wheat. Increase protein intake. Declined offer for nutrition referral. Future consideration: Ordered annual urine albumin Anticipate increase in glipizide at follow up; previously had symptoms of lows in afternoon with 10mg in the AM; now with dexcom will be able to monitor more closely. May need to re-consider mealtimeinsulin. A1c due at upcoming PCP follow up. Declined endo referral for now. Advised if we reach basal insulin dosing over 80 units per day we may need to re-visit mealtime insulin/endo referral. Other pharmacotherapy options limited due to past side effects (see historical above). Counseled on med MOA, administration, side effects, monitoring Adherence at present is estimated to be good. Efforts to improve adherence (if necessary) will be directed at dietary modifications: reduce carbohydrate intake, aim for 60 grams protein daily . PharmD Follow-up: 03/24/24 PCP Follow-up: 03/29/24 Notify your healthcare provider if you have any of the following: -Diarrhea or vomiting for more than six hours -Blood sugar >300 mg/dL more than once -Low blood sugar (<70 mg/dL) -Questions about your medications Thank you, Laura Lynch PharmD Continue all meds under the continuation of care with the referring provider and clinical pharmacy team. Verbal consent to manage patient's drug therapy was obtained. They were informed they may decline to participate or withdraw from participation in pharmacy services at any time. documented in this [facility] Work Phone: 1([phone]) 482-195501-09-2025 History of Present illness Narrative* Laura Lynch PharmD - 03/10/2024 9:20 AM EST Pharmacist Clinic: Diabetes Management Alina Patel is a 63 y.o. female was referred to Clinical Pharmacy Team for diabetes management. Referring Provider: Kristen Caballero DO Diabetes She presents for her follow-up diabetic visit. She has type 2 diabetes mellitus. There are no hypoglycemic associated symptoms. There are no diabetic associated symptoms. There are no hypoglycemic complications. There are no diabetic complications. Risk factors for coronary artery disease include diabetes mellitus, dyslipidemia, hypertension and obesity. She is compliant with treatment all of thetime. Her weight is stable. When asked about meal planning, she reported none. Her home blood glucose trend is decreasing steadily. Her overall blood glucose range is >200 mg/dl. An DEZ inhibitor/angiotensin II receptor eladio is being taken. Eye exam is current. Since last visit, BG stable AM FBG 150s. Dexcom G6 PA approved and shipped, arriving today. Utilizing fingerstick checks in the meantime, non adherent to more frequent testing. Previously used FS Tri - developed irritated skin under first sensor, second sensor had bruising so took off early and returned to fingerstick checking. Does not like applying to upper arm. Has chronic knee pain which limits physical activity, walking is tolerable. Looking into silver sneakers. PMH of recurrent UTI's, reports UTI 2-3 x per year - avoiding SGLT2i LAB REVIEW Lab Results Component Value Date LDLCALC 69 12/17/2023 CREATININE 0.50 12/17/2023 Lab Results Component Value Date HGBA1C 10.6 (H) 12/17/2023 HGBA1C 9.5 (H) 09/04/2023 HGBA1C 9.3 (H) 05/08/2023 Lab Results Component Value Date TRIG 314 (H) 12/17/2023 TRIG 518 (H) 06/13/2022 TRIG 170 (H) 11/07/2021 The 10-year ASCVD risk score (Miranda WEBB, et al., 2019) is: 12.3% Values used to calculate the score: Age: 63 years Sex: Female Is Non- : No Diabetic: Yes Tobacco smoker: No Systolic Blood Pressure: 122 mmHg Is BP treated: Yes HDL Cholesterol: 55 mg/dL Total Cholesterol: 187 mg/dL DIABETES ASSESSMENT CURRENT PHARMACOTHERAPY - Metformin XR 1000mg twice daily (AM + dinner) - Glipizide IR 5mg in AM and 10mg in PM - Toujeo Max U-300 74 units once daily (bedtime) Allergies: Codeine and Lisinopril SECONDARY PREVENTION - Statin? Yes - DEZ-I/ARB? Yes - Aspirin? Yes HISTORICAL PHARMACOTHERAPY - Pioglitazone (aches, edema) - Victoza (replaced by Trulicity) - Januvia (ineffective) - Trulicity (suboptimal response) - Mounjaro (GI s/e) - Repaglinide (non adherence) SMBG MEASUREMENTS Patient is using: glucometer The patient is currently checking the blood glucose once daily. AM FBG avg 150 (reduced from 170) Patient does not report symptoms of hypoglycemia. Is aware - will feel shaky and hungry. Patient does not report symptoms of hyperglycemia. AFFORDABILITY/ADHERENCE - No cost barriers - Frequent missed dosing with mealtime regimens Assessment/Plan Problem List Items Addressed This Visit None Patients diabetes is poorly controlled with most recent A1c of 10.6% (Goal < 7%). Improving per home readings. Continue Toujeo Max U-300 74 units once daily, Metformin XR 1000mg twice daily and glipizide 5mg with breakfast and 10mg with dinner Starting dexcom further adjustments pending CGM report Reviewed hypoglycemia management; has glucose tabs on hand Replace FS Tri 3 with Dexcom G6 per pt preference for abdominal sensor application - shipped Replace simple carbs with complex carbs - whole grain, whole wheat. Increase protein intake. Declined offer for nutrition referral. Future consideration: Ordered annual urine albumin Declined endo referral for now. Advised if we reach basal insulin dosing over 80 units per day we may need to re-visit mealtime insulin/endo referral. Other pharmacotherapy options limited due to past side effects (see historical above). Counseled on med MOA, administration, side effects, monitoring Adherence at present is estimated to be good. Efforts to improve adherence (if necessary) will be directed at dietary modifications: reduce carbohydrate intake, aim for 60 grams protein daily . PharmD Follow-up: 03/17/24 PCP Follow-up: 03/29/24 Notify your healthcare provider if you have any of the following: -Diarrhea or vomiting for more than six hours -Blood sugar >300 mg/dL more than once -Low blood sugar (<70 mg/dL) -Questions about your medications Thank you, Laura Lynch PharmD Continue all meds under the continuation of care with the referring provider and clinical pharmacy team. Verbal consent to manage patient's drug therapy was obtained. They were informed they may decline to participate or withdraw from participation in pharmacy services at any time. documented in this [facility] Work Phone: [phone]) 654-902501-02-2025 History of Present illness Narrative* Laura Lynch PharmD - 03/03/2024 9:20 AM EST Pharmacist Clinic: Diabetes Management Alina Patel is a 63 y.o. female was referred to Clinical Pharmacy Team for diabetes management. Referring Provider: Kristen Caballero DO Diabetes She presents for her follow-up diabetic visit. She has type 2 diabetes mellitus. There are no hypoglycemic associated symptoms. There are no diabetic associated symptoms. There are no hypoglycemic complications. There are no diabetic complications. Risk factors for coronary artery disease include diabetes mellitus, dyslipidemia, hypertension and obesity. She is compliant with treatment all of thetime. Her weight is stable. When asked about meal planning, she reported none. Her home blood glucose trend is decreasing steadily. Her overall blood glucose range is >200 mg/dl. An DEZ inhibitor/angiotensin II receptor eladio is being taken. Eye exam is current. Since last visit, Toujeo increased to 74 units daily due to elevated AM FBG. AM FBG trending down ~4-5 days after increasing dose. Switched glipizide to IR with reduced morning dose and has had no further hypoglycemia symptoms in the afternoon. Dexcom G6 PA approved but RTS for new reader until 03/06/24. Utilizing fingerstick checks in the meantime, non adherent to more frequent testing. Previously used FS Tri - developed irritated skin under first sensor, second sensor had bruising so took off early and returned to fingerstick checking. Does not like applying to upper arm. Has chronic knee pain which limits physical activity, walking is tolerable. Looking into silver sneakers. PMH of recurrent UTI's, reports UTI 2-3 x per year - avoiding SGLT2i LAB REVIEW Lab Results Component Value Date LDLCALC 69 12/17/2023 CREATININE 0.50 12/17/2023 Lab Results Component Value Date HGBA1C 10.6 (H) 12/17/2023 HGBA1C 9.5 (H) 09/04/2023 HGBA1C 9.3 (H) 05/08/2023 Lab Results Component Value Date TRIG 314 (H) 12/17/2023 TRIG 518 (H) 06/13/2022 TRIG 170 (H) 11/07/2021 The 10-year ASCVD risk score (Miranda WEBB, et al., 2019) is: 12.3% Values used to calculate the score: Age: 63 years Sex: Female Is Non- : No Diabetic: Yes Tobacco smoker: No Systolic Blood Pressure: 122 mmHg Is BP treated: Yes HDL Cholesterol: 55 mg/dL Total Cholesterol: 187 mg/dL DIABETES ASSESSMENT CURRENT PHARMACOTHERAPY - Metformin XR 1000mg twice daily (AM + dinner) - Glipizide IR 5mg in AM and 10mg in PM - Toujeo Max U-300 74 units once daily (bedtime) Allergies: Codeine and Lisinopril SECONDARY PREVENTION - Statin? Yes - DEZ-I/ARB? Yes - Aspirin? Yes HISTORICAL PHARMACOTHERAPY - Pioglitazone (aches, edema) - Victoza (replaced by Trulicity) - Januvia (ineffective) - Trulicity (suboptimal response) - Mounjaro (GI s/e) - Repaglinide (non adherence) SMBG MEASUREMENTS Patient is using: glucometer The patient is currently checking the blood glucose once daily. AM FBG avg 150 (reduced from 170); lowest 115 when ate salad the night before Patient does not report symptoms of hypoglycemia. Is aware - will feel shaky and hungry. Patient does not report symptoms of hyperglycemia. AFFORDABILITY/ADHERENCE - No cost barriers - Frequent missed dosing with mealtime regimens Assessment/Plan Problem List Items Addressed This Visit Diabetes (Multi) Patients diabetes is poorly controlled with most recent A1c of 10.6% (Goal < 7%). Improving per home readings. Continue Toujeo Max U-300 74 units once daily, Metformin XR 1000mg twice daily and glipizide 5mg with breakfast and 10mg with dinner Starting dexcom next week; further adjustments pending CGM report Reviewed hypoglycemia management; has glucose tabs on hand Replace FS Tri 3 with Dexcom G6 per pt preference for abdominal sensor application PA approved Redman: [id number] RTS until 03/06/24 Replace simple carbs with complex carbs - whole grain, whole wheat. Increase protein intake. Declined offer for nutrition referral. Future consideration: Due for urine albumin Declined endo referral for now. Advised if we reach basal insulin dosing over 80 units per day we may need to re-visit mealtime insulin/endo referral. Other pharmacotherapy options limited due to past side effects (see historical above). Counseled on med MOA, administration, side effects, monitoring Adherence at present is estimated to be good. Efforts to improve adherence (if necessary) will be directed at dietary modifications: reduce carbohydrate intake, aim for 60 grams protein daily . PharmD Follow-up: 03/10/24 PCP Follow-up: 03/29/24 Notify your healthcare provider if you have any of the following: -Diarrhea or vomiting for more than six hours -Blood sugar >300 mg/dL more than once -Low blood sugar (<70 mg/dL) -Questions about your medications Thank you, Laura Lynch, PharmAlvin Continue all meds under the continuation of care with the referring provider and clinical pharmacy team. Verbal consent to manage patient's drug therapy was obtained. They were informed they may decline to participate or withdraw from participation in pharmacy services at any time. documented in this [facility] Work Phone: [phone]) 744-902512-23-2024 History of Present illness Narrative* Laura Lynch, Eh - 02/22/2024 9:20 AM EST Pharmacist Clinic: Diabetes Management Alina Patel is a 63 y.o. female was referred to Clinical Pharmacy Team for diabetes management. Referring Provider: Kristen Caballero DO Diabetes She presents for her follow-up diabetic visit. She has type 2 diabetes mellitus. There are no hypoglycemic associated symptoms. There are no diabetic associated symptoms. There are no hypoglycemic complications. There are no diabetic complications. Risk factors for coronary artery disease include diabetes mellitus, dyslipidemia, hypertension and obesity. She is compliant with treatment all of thetime. Her weight is stable. When asked about meal planning, she reported none. Her home blood glucose trend is decreasing steadily. Her overall blood glucose range is >200 mg/dl. An DEZ inhibitor/angiotensin II receptor eladio is being taken. Eye exam is current. Reports AM FBG slightly increased from 140 to 160-170s. No changes other than life stressors aroundholiday. Reports shaky and sweaty symptoms sometimes in afternoon if lunch is delayed, did not check BG, improved after eating. Dexcom G6 PA approved but RTS until 03/06/24. Utilizing fingerstick checks in the meantime. Previously used FS Tri - developed irritated skin under first sensor, second sensor had bruising so took off early and returned to fingerstick checking. Does not like applying to upper arm. Has chronic knee pain which limits physical activity, walking is tolerable. Looking into silver sneakers. PMH of recurrent UTI's, reports UTI 2-3 x per year - avoiding SGLT2i LAB REVIEW Lab Results Component Value Date LDLCALC 69 12/17/2023 CREATININE 0.50 12/17/2023 Lab Results Component Value Date HGBA1C 10.6 (H) 12/17/2023 HGBA1C 9.5 (H) 09/04/2023 HGBA1C 9.3 (H) 05/08/2023 Lab Results Component Value Date TRIG 314 (H) 12/17/2023 TRIG 518 (H) 06/13/2022 TRIG 170 (H) 11/07/2021 The 10-year ASCVD risk score (Miranda WEBB, et al., 2019) is: 12.3% Values used to calculate the score: Age: 63 years Sex: Female Is Non- : No Diabetic: Yes Tobacco smoker: No Systolic Blood Pressure: 122 mmHg Is BP treated: Yes HDL Cholesterol: 55 mg/dL Total Cholesterol: 187 mg/dL DIABETES ASSESSMENT CURRENT PHARMACOTHERAPY - Metformin XR 1000mg twice daily (AM + dinner) - Glipizide XL 10mg twice daily (AM + dinner) - Toujeo Max U-300 70 units once daily (bedtime) Allergies: Codeine and Lisinopril SECONDARY PREVENTION - Statin? Yes - DEZ-I/ARB? Yes - Aspirin? Yes HISTORICAL PHARMACOTHERAPY - Pioglitazone (aches, edema) - Victoza (replaced by Trulicity) - Januvia (ineffective) - Trulicity (suboptimal response) - Mounjaro (GI s/e) - Repaglinide (non adherence) SMBG MEASUREMENTS Patient is using: glucometer The patient is currently checking the blood glucose once daily. AM FBG 160-170's Patient does report symptoms of hypoglycemia. Shaky and hungry. Improved after eating. Patient does not report symptoms of hyperglycemia. AFFORDABILITY/ADHERENCE - No cost barriers - Frequent missed dosing with mealtime regimens Assessment/Plan Problem List Items Addressed This Visit Diabetes (Multi) Patients diabetes is poorly controlled with most recent A1c of 10.6% (Goal < 7%). Improving per home readings. Increase Toujeo Max U-300 to 74 units once daily Continue Metformin XR 1000mg twice daily Change glipizide to IR 5mg with breakfast and 10mg with dinner to improve postprandial coverage andreduce risk of hypoglycemia in afternoon Reviewed hypoglycemia management; has glucose tabs on hand Replace FS Tri 3 with Dexcom G6 per pt preference for abdominal sensor application PA approved Redman: [id number] RTS until 03/06/24 Replace simple carbs with complex carbs - whole grain, whole wheat. Increase protein intake. Declined offer for nutrition referral. Future consideration: Due for urine albumin Declined endo referral for now. Advised if we reach basal insulin dosing over 80 units per day we may need to re-visit mealtime insulin/endo referral. Other pharmacotherapy options limited due to past side effects (see historical above). Counseled on med MOA, administration, side effects, monitoring Adherence at present is estimated to be good. Efforts to improve adherence (if necessary) will be directed at dietary modifications: reduce carbohydrate intake, aim for 60 grams protein daily . PharmD Follow-up: 03/03/24 PCP Follow-up: 03/29/24 Notify your healthcare provider if you have any of the following: -Diarrhea or vomiting for more than six hours -Blood sugar >300 mg/dL more than once -Low blood sugar (<70 mg/dL) -Questions about your medications Thank you, Laura Lynch PharmD Continue all meds under the continuation of care with the referring provider and clinical pharmacy team. Verbal consent to manage patient's drug therapy was obtained. They were informed they may decline to participate or withdraw from participation in pharmacy services at any time. documented in this [facility] Work Phone: [phone]) 418-618312-17-2024 History of Present illness Narrative* Laura Lynch PharmD - 02/16/2024 9:20 AM EST Pharmacist Clinic: Diabetes Management Alina Patel is a 63 y.o. female was referred to Clinical Pharmacy Team for diabetes management. Referring Provider: Kristen Caballero DO Diabetes She presents for her follow-up diabetic visit. She has type 2 diabetes mellitus. There are no hypoglycemic associated symptoms. There are no diabetic associated symptoms. There are no hypoglycemic complications. There are no diabetic complications. Risk factors for coronary artery disease include diabetes mellitus, dyslipidemia, hypertension and obesity. She is compliant with treatment all of thetime. Her weight is stable. When asked about meal planning, she reported none. Her home blood glucose trend is decreasing steadily. Her overall blood glucose range is >200 mg/dl. An DEZ inhibitor/angiotensin II receptor eladio is being taken. Eye exam is current. Reports AM FBG slightly increased from 140 to 170s. No changes other than life stressors around holiday. No hypoglycemia symptoms. Dexcom G6 PA approved but RTS until 03/06/24. Utilizing fingerstick checks in the meantime. Previously used FS Tri - developed irritated skin under first sensor, second sensor had bruising so took off early and returned to fingerstick checking. Does not like applying to upper arm. Has chronic knee pain which limits physical activity, walking is tolerable. Looking into silver sneakers. PMH of recurrent UTI's, reports UTI 2-3 x per year - avoiding SGLT2i LAB REVIEW Lab Results Component Value Date LDLCALC 69 12/17/2023 CREATININE 0.50 12/17/2023 Lab Results Component Value Date HGBA1C 10.6 (H) 12/17/2023 HGBA1C 9.5 (H) 09/04/2023 HGBA1C 9.3 (H) 05/08/2023 Lab Results Component Value Date TRIG 314 (H) 12/17/2023 TRIG 518 (H) 06/13/2022 TRIG 170 (H) 11/07/2021 The 10-year ASCVD risk score (Miranda WEBB, et al., 2019) is: 12.3% Values used to calculate the score: Age: 63 years Sex: Female Is Non- : No Diabetic: Yes Tobacco smoker: No Systolic Blood Pressure: 122 mmHg Is BP treated: Yes HDL Cholesterol: 55 mg/dL Total Cholesterol: 187 mg/dL DIABETES ASSESSMENT CURRENT PHARMACOTHERAPY - Metformin XR 1000mg twice daily (AM + dinner) - Glipizide XL 10mg twice daily (AM + dinner) - Toujeo Max U-300 70 units once daily (bedtime) Allergies: Codeine and Lisinopril SECONDARY PREVENTION - Statin? Yes - DEZ-I/ARB? Yes - Aspirin? Yes HISTORICAL PHARMACOTHERAPY - Pioglitazone (aches, edema) - Victoza (replaced by Trulicity) - Januvia (ineffective) - Trulicity (suboptimal response) - Mounjaro (GI s/e) - Repaglinide (non adherence) SMBG MEASUREMENTS Patient is using: glucometer The patient is currently checking the blood glucose once daily. AM FBG 170's Patient does report symptoms of hypoglycemia. Shaky and hungry. Improved after eating. Patient does not report symptoms of hyperglycemia. AFFORDABILITY/ADHERENCE - No cost barriers - Frequent missed dosing with mealtime regimens Assessment/Plan Problem List Items Addressed This Visit Diabetes (Multi) Patients diabetes is poorly controlled with most recent A1c of 10.6% (Goal < 7%). Improving per home readings. Continue Toujeo Max U-300 70 units once daily Slight elevation in AM FBG however last week was well controlled with lows in the afternoon; increased glucose possibly due to acute stressors and will monitor for additional week prior to further adjustment Continue Metformin XR 1000mg twice daily, Glipizide XL 10mg twice daily (plan to switch to IR once supply exhausted) Reviewed hypoglycemia management; has glucose tabs on hand Replace FS Tri 3 with Dexcom G6 per pt preference for abdominal sensor application PA approved Redman: [id number] RTS until 03/06/24 Replace simple carbs with complex carbs - whole grain, whole wheat. Increase protein intake. Declined offer for nutrition referral. Future consideration: Due for urine albumin Declined endo referral for now. Advised if we reach basal insulin dosing over 80 units per day we may need to re-visit mealtime insulin/endo referral. Other pharmacotherapy options limited due to past side effects (see historical above). Counseled on med MOA, administration, side effects, monitoring Adherence at present is estimated to be good. Efforts to improve adherence (if necessary) will be directed at dietary modifications: reduce carbohydrate intake, aim for 60 grams protein daily . PharmD Follow-up: 1 week PCP Follow-up: 03/29/24 Notify your healthcare provider if you have any of the following: -Diarrhea or vomiting for more than six hours -Blood sugar >300 mg/dL more than once -Low blood sugar (<70 mg/dL) -Questions about your medications Thank you, Laura Lynch PharmD Continue all meds under the continuation of care with the referring provider and clinical pharmacy team. Verbal consent to manage patient's drug therapy was obtained. They were informed they may decline to participate or withdraw from participation in pharmacy services at any time. documented in this [facility] Work Phone: [phone]) 938-197112-10-2024 History of Present illness Narrative* Laura Lynch PharmD - 02/09/2024 9:20 AM EST Pharmacist Clinic: Diabetes Management Alina Patel is a 63 y.o. female was referred to Clinical Pharmacy Team for diabetes management. Referring Provider: Kristen Caballero DO Diabetes She presents for her follow-up diabetic visit. She has type 2 diabetes mellitus. There are no hypoglycemic associated symptoms. There are no diabetic associated symptoms. There are no hypoglycemic complications. There are no diabetic complications. Risk factors for coronary artery disease include diabetes mellitus, dyslipidemia, hypertension and obesity. She is compliant with treatment all of thetime. Her weight is stable. When asked about meal planning, she reported none. Her home blood glucose trend is decreasing steadily. Her overall blood glucose range is >200 mg/dl. An DEZ inhibitor/angiotensin II receptor eladio is being taken. Eye exam is current. Since last visit, Frida maintained 70 units daily. Reports AM FBG 140's. When eats late lunch feels shaky, occasional low symptoms before meals however BG has not fallen <70. Feels shaky when BG around 100. Dinner is biggest meal. Dexcom G6 PA approved but RTS until 02/11. Utilizing fingerstick checks in the meantime. Previously used FS Tri - developed irritated skin under first sensor, second sensor had bruising so took off early and returned to fingerstick checking. Does not like applying to upper arm. Has chronic knee pain which limits physical activity, walking is tolerable. Looking into silver sneakers. PMH of recurrent UTI's, reports UTI 2-3 x per year - avoiding SGLT2i LAB REVIEW Lab Results Component Value Date LDLCALC 69 12/17/2023 CREATININE 0.50 12/17/2023 Lab Results Component Value Date HGBA1C 10.6 (H) 12/17/2023 HGBA1C 9.5 (H) 09/04/2023 HGBA1C 9.3 (H) 05/08/2023 Lab Results Component Value Date TRIG 314 (H) 12/17/2023 TRIG 518 (H) 06/13/2022 TRIG 170 (H) 11/07/2021 The 10-year ASCVD risk score (Miranda WEBB, et al., 2019) is: 12.3% Values used to calculate the score: Age: 63 years Sex: Female Is Non- : No Diabetic: Yes Tobacco smoker: No Systolic Blood Pressure: 122 mmHg Is BP treated: Yes HDL Cholesterol: 55 mg/dL Total Cholesterol: 187 mg/dL DIABETES ASSESSMENT CURRENT PHARMACOTHERAPY - Metformin XR 1000mg twice daily (AM + dinner) - Glipizide XL 10mg twice daily (AM + dinner) - Toujeo Max U-300 70 units once daily (bedtime) Allergies: Codeine and Lisinopril SECONDARY PREVENTION - Statin? Yes - DEZ-I/ARB? Yes - Aspirin? Yes HISTORICAL PHARMACOTHERAPY - Pioglitazone (aches, edema) - Victoza (replaced by Trulicity) - Januvia (ineffective) - Trulicity (suboptimal response) - Mounjaro (GI s/e) - Repaglinide (non adherence) SMBG MEASUREMENTS Patient is using: glucometer The patient is currently checking the blood glucose once daily. AM FBG 140's Postprandial 100-200 Patient does report symptoms of hypoglycemia. Shaky and hungry. Improved after eating. Patient does not report symptoms of hyperglycemia. AFFORDABILITY/ADHERENCE - No cost barriers - Frequent missed dosing with mealtime regimens Assessment/Plan Problem List Items Addressed This Visit Diabetes (Multi) Relevant Medications blood-glucose meter,continuous (Dexcom G6 Routeman) misc blood-glucose sensor (Dexcom G6 Sensor) device glipiZIDE (Glucotrol) 5 mg tablet Other Relevant Orders Referral to Clinical Pharmacy Referral to Clinical Pharmacy Patients diabetes is poorly controlled with most recent A1c of 10.6% (Goal < 7%). Improving per home readings. Continue Toujeo Max U-300 70 units once daily Continue Metformin XR 1000mg twice daily Change Glipizide XL to IR 5mg in the morning and 10mg in the evening to provide more evenly distributed postprandial coverage Reviewed hypoglycemia management; has glucose tabs on hand Replace FS Tri 3 with Dexcom G6 per pt preference for abdominal sensor application PA approved Redman: [id number] Set up dexcom clarity at follow up Replace simple carbs with complex carbs - whole grain, whole wheat. Increase protein intake. Declined offer for nutrition referral. Future consideration: Due for urine albumin Declined endo referral for now. Advised if we reach basal insulin dosing over 80 units per day we may need to re-visit mealtime insulin/endo referral. Other pharmacotherapy options limited due to past side effects (see historical above). Counseled on med MOA, administration, side effects, monitoring Adherence at present is estimated to be good. Efforts to improve adherence (if necessary) will be directed at dietary modifications: reduce carbohydrate intake, aim for 60 grams protein daily . PharmD Follow-up: 1 week PCP Follow-up: 03/29/24 Notify your healthcare provider if you have any of the following: -Diarrhea or vomiting for more than six hours -Blood sugar >300 mg/dL more than once -Low blood sugar (<70 mg/dL) -Questions about your medications Thank you, Laura Lynch PharmD Continue all meds under the continuation of care with the referring provider and clinical pharmacy team. Verbal consent to manage patient's drug therapy was obtained. They were informed they may decline to participate or withdraw from participation in pharmacy services at any time. [facility]: [phone]) 181-163612-09-2024 Evaluation + Plan note* Assessment & Plan Note - Kristen Caballero DO - 02/08/2024 12:29 PM ESTAssociated Problem(s): Acute cystitis without hematuria -We will try Bactrim DS for 10 days and we talked about urinary tract infection prevention -I sent her a handout via Shortlist [facility] Work Phone: [phone]) 473-267712-09-2024 Miscellaneous Notes* Assessment & Plan Note - Kristen Caballero DO - 02/08/2024 12:29 PM ESTAssociated Problem(s): Acute cystitis without hematuria -We will try Bactrim DS for 10 days and we talked about urinary tract infection prevention -I sent her a handout via Shortlist * Assessment & Plan Note - Kristen Caballero DO - 02/08/2024 12:28 PM EST Associated Problem(s): HTN (hypertension) -She stopped to have her blood pressure medicines and today's blood pressure is looking excellent -She has agreed to check her blood pressures at home couple times a day for the next couple of weeks and give me an update just to make sure it is under good control -She is also having to take 2 of her pills instead of combining into 1 pill daily. She states her insurance company is urging her to switch but she has difficulty swallowing tablets. She is going to call the insurance [employer] to give me a name and address of where I can send a letter indicating whynarinder is to have 2 of the tablets instead of 1. [facility] [facility]: [phone]) [phone] Evaluation + Plan note* Assessment & Plan Note - Kristen Caballero DO - 02/08/2024 12:28 PM ESTAssociated Problem(s): HTN (hypertension) -She stopped to have her blood pressure medicines and today's blood pressure is looking excellent -She has agreed to check her blood pressures at home couple times a day for the next couple of weeks and give me an update just to make sure it is under good control -She is also having to take 2 of her pills instead of combining into 1 pill daily. She states her insurance company is urging her to switch but she has difficulty swallowing tablets. She is going to call the insurance [employer] to give me a name and address of where I can send a letter indicating whynarinder is to have 2 of the tablets instead of 1. [facility] Work Phone: [phone]) 518-427712-09-2024 History of Present illness Narrative* Kristen Caballero DO - 02/08/2024 11:40 AM EST Subjective Patient ID: Alina Patel is a 63 y.o. female who presents for UTI (URINARY PRESSURE AND ODOR). UTI Associated symptoms include frequency. Pertinent negatives include no hematuria, nausea or vomiting. She is here today with a several day history of increased urinary frequency and burning. Based on today's urinalysis it does appear that she is suffering from a urinary tract infection. Unfortunatelynarinder has had several over the past year. We looked at the sensitivity reports and have decided to place her on Bactrim today for 10 days. We talked about preventing UTIs and about drinking more water and urinating after intercourse at [facility]. I am sending her a handout via Shortlist on ways to reduce hopefully recurrent urinary tract infections. I told her if she gets more we will need to do an investigation with ultrasound at [facility]. She also stopped her chlorthalidone and hydralazine. Today's blood pressure is very good and she states has been doing well at home. She is going to check twice a day for a few weeks just to make sure that her blood pressure stays within acceptable range. She is also following with pharmacy and gaining better control of her blood sugars. We will see mehran in late March for a checkup with a hemoglobin A1c. Review of Systems Constitutional: Negative for fatigue. Respiratory: Negative for cough, shortness of breath and wheezing. Cardiovascular: Negative for chest pain, palpitations and leg swelling. Gastrointestinal: Negative for abdominal pain, blood in stool, diarrhea, nausea and vomiting. Genitourinary: Positive for dysuria and frequency. Negative for hematuria. Musculoskeletal: Negative for back pain. Objective Physical Exam Vitals and nursing note reviewed. Constitutional: General: She is not in acute distress. Appearance: Normal appearance. HENT: Head: Normocephalic and atraumatic. Eyes: Conjunctiva/sclera: Conjunctivae normal. Cardiovascular: Rate and Rhythm: Normal rate and regular rhythm. Heart sounds: Normal heart sounds. Pulmonary: Effort: No respiratory distress. Breath sounds: No wheezing. Abdominal: Palpations: Abdomen is soft. Tenderness: There is no abdominal tenderness. There is no guarding. Musculoskeletal: General: No swelling. Normal range of motion. Skin: General: Skin is warm and dry. Neurological: General: No focal deficit present. Mental Status: She is alert and oriented to person, place, and time. Psychiatric: Behavior: Behavior normal. Assessment/Plan Problem List Items Addressed This Visit ICD-10-CM HTN (hypertension) I10 -She stopped to have her blood pressure medicines and today's blood pressure is looking excellent -She has agreed to check her blood pressures at home couple times a day for the next couple of weeks and give me an update just to make sure it is under good control -She is also having to take 2 of her pills instead of combining into 1 pill daily. She states her insurance company is urging her to switch but she has difficulty swallowing tablets. She is going to call the insurance company to give me a name and address of where I can send a letter indicating whyshe is to have 2 of the tablets instead of 1. Acute cystitis without hematuria N30.00 -We will try Bactrim DS for 10 days and we talked about urinary tract infection prevention -I sent her a handout via Shortlist Relevant Medications sulfamethoxazole-trimethoprim (Bactrim DS) 800-160 mg tablet Other Visit Diagnoses Codes Abnormal urine odor - Primary R82.90 Relevant Orders POCT UA Automated manually resulted (Completed) Patient instructions As we discussed I sent a prescription to your pharmacy for Bactrim to be taken twice a day for 10 days Please call if you are not doing well with this medication and please remember our discussion abouturinary tract infection prevention Please check with your insurance company to see who I need to send a letter to i.e. a specific nameand address so that I can send notification regarding your need to take 2 tablets instead of one ofyour medicine. I am glad that you are working closely with the clinical pharmacist and I am very optimistic that you will be doing better when we see you next time. You can ask the staff to change your appointment for a little bit later in March and lab work has been ordered for that visit Kristen Caballero DO documented in this [facility] Work Phone: 1([phone]) 412-658512-09-2024 Instructions* Patient Instructions* Kristen Caballero DO - 02/08/2024 11:40 AM EST Patient instructions As we discussed I sent a prescription to your pharmacy for Bactrim to be taken twice a day for 10 days Please call if you are not doing well with this medication and please remember our discussion abouturinary tract infection prevention Please check with your insurance company to see who I need to send a letter to i.e. a specific nameand address so that I can send notification regarding your need to take 2 tablets instead of one ofyour medicine. I am glad that you are working closely with the clinical pharmacist and I am very optimistic that you will be doing better when we see you next time. You can ask the staff to change your appointment for a little bit later in March and lab work has been ordered for that visit documented in this [facility] Work Phone: 1([phone]) 462-990412-03-2024 History of Present illness Narrative* Laura Lynch, PharmD - 02/02/2024 9:20 AM EST Pharmacist Clinic: Diabetes Management Alina Patel is a 63 y.o. female was referred to Clinical Pharmacy Team for diabetes management. Referring Provider: Kristen Caballero DO Diabetes She presents for her follow-up diabetic visit. She has type 2 diabetes mellitus. There are no hypoglycemic associated symptoms. There are no diabetic associated symptoms. There are no hypoglycemic complications. There are no diabetic complications. Risk factors for coronary artery disease include diabetes mellitus, dyslipidemia, hypertension and obesity. She is compliant with treatment all of thetime. Her weight is stable. When asked about meal planning, she reported none. Her home blood glucose trend is decreasing steadily. Her overall blood glucose range is >200 mg/dl. An DEZ inhibitor/angiotensin II receptor eladio is being taken. Eye exam is current. Since last visit, Toujeo increased to 70 units daily. Steady reduction in AM FBG. Had hypoglycemic symptoms shaky, hungry when skipped lunch. Ate and checked BG after it was 135. Dexcom G6 PA approved but RTS until 02/11. Utilizing fingerstick checks in the meantime. Previously used FS Tri - developed irritated skin under first sensor, second sensor had bruising so took off early and returned to fingerstick checking. Does not like applying to upper arm. Has chronic knee pain which limits physical activity, walking is tolerable. Looking into silver sneakers. PMH of recurrent UTI's, reports UTI 2-3 x per year - avoiding SGLT2i LAB REVIEW Lab Results Component Value Date LDLCALC 69 12/17/2023 CREATININE 0.50 12/17/2023 Lab Results Component Value Date HGBA1C 10.6 (H) 12/17/2023 HGBA1C 9.5 (H) 09/04/2023 HGBA1C 9.3 (H) 05/08/2023 Lab Results Component Value Date TRIG 314 (H) 12/17/2023 TRIG 518 (H) 06/13/2022 TRIG 170 (H) 11/07/2021 The 10-year ASCVD risk score (Miranda WEBB, et al., 2019) is: 16.3% Values used to calculate the score: Age: 63 years Sex: Female Is Non- : No Diabetic: Yes Tobacco smoker: No Systolic Blood Pressure: 142 mmHg Is BP treated: Yes HDL Cholesterol: 55 mg/dL Total Cholesterol: 187 mg/dL DIABETES ASSESSMENT CURRENT PHARMACOTHERAPY - Metformin XR 1000mg twice daily - Glipizide XL 10mg twice daily - Toujeo Max U-300 70 units once daily (PM) Allergies: Codeine and Lisinopril SECONDARY PREVENTION - Statin? Yes - DEZ-I/ARB? Yes - Aspirin? Yes HISTORICAL PHARMACOTHERAPY - Pioglitazone (aches, edema) - Victoza (replaced by Trulicity) - Januvia (ineffective) - Trulicity (suboptimal response) - Mounjaro (GI s/e) - Repaglinide (non adherence) SMBG MEASUREMENTS Patient is using: glucometer The patient is currently checking the blood glucose once daily. AM FBG 106, 126, 197, 145 Postprandial 100-200 Patient does report symptoms of hypoglycemia. Shaky and hungry. Improved after eating. Patient does not report symptoms of hyperglycemia. AFFORDABILITY/ADHERENCE - No cost barriers - Frequent missed dosing with mealtime regimens Assessment/Plan Problem List Items Addressed This Visit Diabetes (Multi) Relevant Orders Referral to Clinical Pharmacy Patients diabetes is poorly controlled with most recent A1c of 10.6% (Goal < 7%). Improving per home readings. Continue Toujeo Max U-300 70 units once daily Continue Metformin XR 1000mg twice daily, glipizide XL 10mg twice daily Reviewed hypoglycemia management; has glucose tabs on hand Replace FS Tri 3 with Dexcom G6 per pt preference for abdominal sensor application PA approved Redman: [id number] Set up dexcom clarity at follow up Replace simple carbs with complex carbs - whole grain, whole wheat. Increase protein intake. Declined offer for nutrition referral. Future consideration: Due for urine albumin Declined endo referral for now. Advised if we reach basal insulin dosing over 80 units per day we may need to re-visit mealtime insulin/endo referral. Other pharmacotherapy options limited due to past side effects (see historical above). Counseled on med MOA, administration, side effects, monitoring Adherence at present is estimated to be good. Efforts to improve adherence (if necessary) will be directed at dietary modifications: reduce carbohydrate intake, aim for 60 grams protein daily . PharmD Follow-up: 1 week PCP Follow-up: 02/15/24 Notify your healthcare provider if you have any of the following: -Diarrhea or vomiting for more than six hours -Blood sugar >300 mg/dL more than once -Low blood sugar (<70 mg/dL) -Questions about your medications Thank you, Laura Lynch PharmD Continue all meds under the continuation of care with the referring provider and clinical pharmacy team. Verbal consent to manage patient's drug therapy was obtained. They were informed they may decline to participate or withdraw from participation in pharmacy services at any time. documented in this [facility] Work Phone: [phone]) 525-510611-26-2024 History of Present illness Narrative* Laura Lynch PharmD - 01/26/2024 9:20 AM EST Pharmacist Clinic: Diabetes Management Alina Patel is a 63 y.o. female was referred to Clinical Pharmacy Team for diabetes management. Referring Provider: Kristen Caballero DO Diabetes She presents for her follow-up diabetic visit. She has type 2 diabetes mellitus. There are no hypoglycemic associated symptoms. There are no diabetic associated symptoms. There are no hypoglycemic complications. There are no diabetic complications. Risk factors for coronary artery disease include diabetes mellitus, dyslipidemia, hypertension and obesity. She is compliant with treatment all of thetime. Her weight is stable. When asked about meal planning, she reported none. Her home blood glucose trend is decreasing steadily. Her overall blood glucose range is >200 mg/dl. An DEZ inhibitor/angiotensin II receptor eladio is being taken. Eye exam is current. Since last visit, Toujeo increased to 64 units daily. Steady reduction in AM FBG. Dexcom G6 PA approved. Has not picked up yet, utilizing fingerstick checks in the meantime. Previously used FS Tri - developed irritated skin under first sensor, second sensor had bruising so took off early and returned to fingerstick checking. Does not like applying to upper arm. Has chronic knee pain which limits physical activity, walking is tolerable. Looking into silver sneakers. PMH of recurrent UTI's, reports UTI 2-3 x per year - avoiding SGLT2i LAB REVIEW Lab Results Component Value Date LDLCALC 69 12/17/2023 CREATININE 0.50 12/17/2023 Lab Results Component Value Date HGBA1C 10.6 (H) 12/17/2023 HGBA1C 9.5 (H) 09/04/2023 HGBA1C 9.3 (H) 05/08/2023 Lab Results Component Value Date TRIG 314 (H) 12/17/2023 TRIG 518 (H) 06/13/2022 TRIG 170 (H) 11/07/2021 The 10-year ASCVD risk score (Miranda WEBB, et al., 2019) is: 16.3% Values used to calculate the score: Age: 63 years Sex: Female Is Non- : No Diabetic: Yes Tobacco smoker: No Systolic Blood Pressure: 142 mmHg Is BP treated: Yes HDL Cholesterol: 55 mg/dL Total Cholesterol: 187 mg/dL DIABETES ASSESSMENT CURRENT PHARMACOTHERAPY - Metformin XR 1000mg twice daily - Glipizide XL 10mg twice daily - Toujeo Max U-300 64 units once daily (PM) Allergies: Codeine and Lisinopril SECONDARY PREVENTION - Statin? Yes - DEZ-I/ARB? Yes - Aspirin? Yes HISTORICAL PHARMACOTHERAPY - Pioglitazone (aches, edema) - Victoza (replaced by Trulicity) - Januvia (ineffective) - Trulicity (suboptimal response) - Mounjaro (GI s/e) - Repaglinide (non adherence) SMBG MEASUREMENTS Patient is using: glucometer The patient is currently checking the blood glucose once daily. AM FBG 170, 167, 173, 197 (down from 250s) Postprandial 140, 190 Patient does not report symptoms of hypoglycemia. Patient does not report symptoms of hyperglycemia. AFFORDABILITY/ADHERENCE - No cost barriers - Frequent missed dosing with mealtime regimens Assessment/Plan Problem List Items Addressed This Visit Diabetes (Multi) Patients diabetes is poorly controlled with most recent A1c of 10.6% (Goal < 7%). Increase Toujeo Max U-300 to 70 units once daily Continue Metformin XR 1000mg twice daily, glipizide XL 10mg twice daily Replace FS Tri 3 with Dexcom G6 per pt preference for abdominal sensor application PA approved Redman: [id number] Set up dexcom clarity at follow up Replace simple carbs with complex carbs - whole grain, whole wheat. Increase protein intake. Declined offer for nutrition referral. Future consideration: Due for urine albumin Declined endo referral for now. Advised if we reach basal insulin dosing over 80 units per day we may need to re-visit mealtime insulin/endo referral. Other pharmacotherapy options limited due to past side effects (see historical above). Counseled on med MOA, administration, side effects, monitoring Adherence at present is estimated to be good. Efforts to improve adherence (if necessary) will be directed at dietary modifications: reduce carbohydrate intake, aim for 60 grams protein daily . PharmD Follow-up: 02/02/24 09:20 PCP Follow-up: 02/15/24 Notify your healthcare provider if you have any of the following: -Diarrhea or vomiting for more than six hours -Blood sugar >300 mg/dL more than once -Low blood sugar (<70 mg/dL) -Questions about your medications Thank you, Laura Lynch PharmD Continue all meds under the continuation of care with the referring provider and clinical pharmacy team. Verbal consent to manage patient's drug therapy was obtained. They were informed they may decline to participate or withdraw from participation in pharmacy services at any time. documented in this [facility] Work Phone: [phone]) 871-939811-19-2024 History of Present illness Narrative* Laura Lynch PharmD - 01/19/2024 9:20 AM EST Pharmacist Clinic: Diabetes Management Alina Patel is a 63 y.o. female was referred to Clinical Pharmacy Team for diabetes management. Referring Provider: Kristen Caballero DO Diabetes She presents for her follow-up diabetic visit. She has type 2 diabetes mellitus. There are no hypoglycemic associated symptoms. There are no diabetic associated symptoms. There are no hypoglycemic complications. There are no diabetic complications. Risk factors for coronary artery disease include diabetes mellitus, dyslipidemia, hypertension and obesity. She is compliant with treatment all of thetime. Her weight is stable. When asked about meal planning, she reported none. Her home blood glucose trend is decreasing steadily. Her overall blood glucose range is >200 mg/dl. An DEZ inhibitor/angiotensin II receptor eladio is being taken. Eye exam is current. Since last visit, Toujeo increased to 58 units daily. Steady reduction in AM FBG. Irritated skin under first sensor, second sensor had bruising so took off early and returned to fingerstick checking. Does not like applying to upper arm. Monitoring carb intake since using CGM. Reports blood sugars averaging more in 200s compared to 300s. Has chronic knee pain which limits physical activity, walking is tolerable. Looking into silver sneakers. PMH of recurrent UTI's, reports UTI 2-3 x per year - avoiding SGLT2i LAB REVIEW Lab Results Component Value Date LDLCALC 69 12/17/2023 CREATININE 0.50 12/17/2023 Lab Results Component Value Date HGBA1C 10.6 (H) 12/17/2023 HGBA1C 9.5 (H) 09/04/2023 HGBA1C 9.3 (H) 05/08/2023 Lab Results Component Value Date TRIG 314 (H) 12/17/2023 TRIG 518 (H) 06/13/2022 TRIG 170 (H) 11/07/2021 The 10-year ASCVD risk score (Miranda WEBB, et al., 2019) is: 16.3% Values used to calculate the score: Age: 63 years Sex: Female Is Non- : No Diabetic: Yes Tobacco smoker: No Systolic Blood Pressure: 142 mmHg Is BP treated: Yes HDL Cholesterol: 55 mg/dL Total Cholesterol: 187 mg/dL DIABETES ASSESSMENT CURRENT PHARMACOTHERAPY - Metformin XR 1000mg twice daily - Glipizide XL 10mg twice daily - Toujeo Max U-300 58 units once daily (PM) Allergies: Codeine and Lisinopril SECONDARY PREVENTION - Statin? Yes - DEZ-I/ARB? Yes - Aspirin? Yes HISTORICAL PHARMACOTHERAPY - Pioglitazone (aches, edema) - Victoza (replaced by Trulicity) - Januvia (ineffective) - Trulicity (suboptimal response) - Mounjaro (GI s/e) - Repaglinide (non adherence) SMBG MEASUREMENTS Patient is using: glucometer The patient is currently checking the blood glucose once daily. AM FBG 209, 196 (down from 250s) Postprandial 180-300; Lowest 137 AVG 225 Patient does not report symptoms of hypoglycemia. Patient does not report symptoms of hyperglycemia. AFFORDABILITY/ADHERENCE - No cost barriers - Frequent missed dosing with mealtime regimens Assessment/Plan Problem List Items Addressed This Visit Diabetes (Multi) Patients diabetes is poorly controlled with most recent A1c of 10.6% (Goal < 7%). Increase Toujeo Max U-300 to 64 units once daily Continue Metformin XR 1000mg twice daily, glipizide XL 10mg twice daily Replace FS Tri 3 with Dexcom G6 per pt preference for abdominal sensor application Replace simple carbs with complex carbs - whole grain, whole wheat. Increase protein intake. Declined offer for nutrition referral. Future consideration: Due for urine albumin Declined endo referral for now. Advised if we reach basal insulin dosing over 80 units per day we may need to re-visit mealtime insulin/endo referral. Other pharmacotherapy options limited due to past side effects (see historical above). Counseled on med MOA, administration, side effects, monitoring Adherence at present is estimated to be good. Efforts to improve adherence (if necessary) will be directed at dietary modifications: reduce carbohydrate intake, aim for 60 grams protein daily . PharmD Follow-up: 01/26/24 09:20 PCP Follow-up: 02/15/24 Notify your healthcare provider if you have any of the following: -Diarrhea or vomiting for more than six hours -Blood sugar >300 mg/dL more than once -Low blood sugar (<70 mg/dL) -Questions about your medications Thank you, Laura Lynch, Eh Continue all meds under the continuation of care with the referring provider and clinical pharmacy team. Verbal consent to manage patient's drug therapy was obtained. They were informed they may decline to participate or withdraw from participation in pharmacy services at any time. documented in this [facility] Work Phone: 1([phone]) 667-340511-12-2024 History of Present illness Narrative* Laura Lynch PharmD - 01/12/2024 9:20 AM EST Pharmacist Clinic: Diabetes Management Alina Patel is a 63 y.o. female was referred to Clinical Pharmacy Team for diabetes management. Referring Provider: Kristen Caballero DO Diabetes She presents for her follow-up diabetic visit. She has type 2 diabetes mellitus. Her disease coursehas been worsening. There are no hypoglycemic associated symptoms. There are no diabetic associatedsymptoms. There are no hypoglycemic complications. There are no diabetic complications. Risk factors for coronary artery disease include diabetes mellitus, dyslipidemia, hypertension and obesity. Sheis compliant with treatment all of the time. Her weight is stable. When asked about meal planning, she reported none. There is no change in her home blood glucose trend. Her overall blood glucose range is >200 mg/dl. An DEZ inhibitor/angiotensin II receptor eladio is being taken. Eye exam is current. Since last visit, switched Lantus to Toujeo Max and increased to 52 units daily. Reports injection site redness and tenderness has resolved with transition from Lantus to Toujeo. Repots no significant change in blood sugars. [place]oka link connected, did not want to download madhuri so did not upload blood sugars. Monitoring carb intake since using CGM. Reports blood sugars averaging more in 200s compared to 300s. Has chronic knee pain which limits physical activity, walking is tolerable. PMH of recurrent UTI's, reports UTI 2-3 x per year - avoiding SGLT2i LAB REVIEW Lab Results Component Value Date LDLCALC 69 12/17/2023 CREATININE 0.50 12/17/2023 Lab Results Component Value Date HGBA1C 10.6 (H) 12/17/2023 HGBA1C 9.5 (H) 09/04/2023 HGBA1C 9.3 (H) 05/08/2023 Lab Results Component Value Date TRIG 314 (H) 12/17/2023 TRIG 518 (H) 06/13/2022 TRIG 170 (H) 11/07/2021 The 10-year ASCVD risk score (Miranda WEBB, et al., 2019) is: 16.3% Values used to calculate the score: Age: 63 years Sex: Female Is Non- : No Diabetic: Yes Tobacco smoker: No Systolic Blood Pressure: 142 mmHg Is BP treated: Yes HDL Cholesterol: 55 mg/dL Total Cholesterol: 187 mg/dL DIABETES ASSESSMENT CURRENT PHARMACOTHERAPY - Metformin XR 1000mg twice daily - Glipizide XL 10mg twice daily - Toujeo Max U-300 52 units once daily (PM) Allergies: Codeine and Lisinopril SECONDARY PREVENTION - Statin? Yes - DEZ-I/ARB? Yes - Aspirin? Yes HISTORICAL PHARMACOTHERAPY - Pioglitazone (aches, edema) - Victoza (replaced by Trulicity) - Januvia (ineffective) - Trulicity (suboptimal response) - Mounjaro (GI s/e) - Repaglinide (non adherence) SMBG MEASUREMENTS Patient is using: glucometer The patient is currently checking the blood glucose once daily. AM FBG 200-300 7 day AVG 255 14 day AVG 264 Patient does not report symptoms of hypoglycemia. Patient does not report symptoms of hyperglycemia. AFFORDABILITY/ADHERENCE - No cost barriers - Frequent missed dosing with mealtime regimens Assessment/Plan Problem List Items Addressed This Visit Diabetes (Multi) Relevant Orders Referral to Clinical Pharmacy Patients diabetes is poorly controlled with most recent A1c of 10.6% (Goal < 7%). Increase Toujeo Max U-300 to 58 units once daily Continue Metformin XR 1000mg twice daily, glipizide XL 10mg twice daily Continue Freestyle Tri 3 sensors to monitor blood sugars Download [place]oka madhuri to upload Replace simple carbs with complex carbs - whole grain, whole wheat. Increase protein intake. Declined offer for nutrition referral. Future consideration: Due for urine albumin Declined endo referral for now. Advised if we reach basal insulin dosing over 80 units per day we may need to re-visit mealtime insulin/endo referral. Other pharmacotherapy options limited due to past side effects (see historical above). Counseled on med MOA, administration, side effects, monitoring Adherence at present is estimated to be good. Efforts to improve adherence (if necessary) will be directed at dietary modifications: reduce carbohydrate intake, aim for 60 grams protein daily . PharmD Follow-up: 01/19/24 09:20 PCP Follow-up: 02/15/24 Notify your healthcare provider if you have any of the following: -Diarrhea or vomiting for more than six hours -Blood sugar >300 mg/dL more than once -Low blood sugar (<70 mg/dL) -Questions about your medications Thank you, Laura Lynch PharmD Continue all meds under the continuation of care with the referring provider and clinical pharmacy team. Verbal consent to manage patient's drug therapy was obtained. They were informed they may decline to participate or withdraw from participation in pharmacy services at any time. documented in this [facility] Work Phone: [phone]) 163-938411-05-2024 History of Present illness Narrative* Laura Lynch PharmD - 01/05/2024 9:20 AM EST Pharmacist Clinic: Diabetes Management Alina Patel is a 63 y.o. female was referred to Clinical Pharmacy Team for diabetes management. Referring Provider: Kristen Caballero DO Diabetes She presents for her follow-up diabetic visit. She has type 2 diabetes mellitus. Her disease coursehas been worsening. There are no hypoglycemic associated symptoms. There are no diabetic associatedsymptoms. There are no hypoglycemic complications. There are no diabetic complications. Risk factors for coronary artery disease include diabetes mellitus, dyslipidemia, hypertension and obesity. Sheis compliant with treatment all of the time. Her weight is stable. When asked about meal planning, she reported none. There is no change in her home blood glucose trend. Her overall blood glucose range is >200 mg/dl. An DEZ inhibitor/angiotensin II receptor eladio is being taken. Eye exam is current. Since last visit, started testing blood sugar with FS Tri 3 and increased Lantus from 42 to 46 units. Self stopped repaglinide due to nonadherence with administration timing before meals and returned to taking glipizide XL. Monitoring carb intake since using CGM. Reports blood sugars averaging more in 200s compared to 300s. She feels more motivated this week to reduce carbs in diet to limit further addition of pharmacotherapy. Has chronic knee pain which limits physical activity, walking is tolerable. Site of administration: abdomen; Mild bruising, redness at site since increased dose on Lantus - improving PMH of recurrent UTI's, reports UTI 2-3 x per year LAB REVIEW Lab Results Component Value Date LDLCALC 69 12/17/2023 CREATININE 0.50 12/17/2023 Lab Results Component Value Date HGBA1C 10.6 (H) 12/17/2023 HGBA1C 9.5 (H) 09/04/2023 HGBA1C 9.3 (H) 05/08/2023 Lab Results Component Value Date TRIG 314 (H) 12/17/2023 TRIG 518 (H) 06/13/2022 TRIG 170 (H) 11/07/2021 The 10-year ASCVD risk score (Miranda WEBB, et al., 2019) is: 16.3% Values used to calculate the score: Age: 63 years Sex: Female Is Non- : No Diabetic: Yes Tobacco smoker: No Systolic Blood Pressure: 142 mmHg Is BP treated: Yes HDL Cholesterol: 55 mg/dL Total Cholesterol: 187 mg/dL DIABETES ASSESSMENT CURRENT PHARMACOTHERAPY - Metformin XR 1000mg twice daily - Glipizide XL 10mg twice daily - Lantus 46 units once daily Allergies: Codeine and Lisinopril SECONDARY PREVENTION - Statin? Yes - DEZ-I/ARB? Yes - Aspirin? Yes HISTORICAL PHARMACOTHERAPY - Pioglitazone (aches, edema) - Victoza (replaced by Trulicity) - Januvia (ineffective) - Trulicity (suboptimal response) - Mounjaro (GI s/e) SMBG MEASUREMENTS Patient is using: glucometer The patient is currently checking the blood glucose once daily. AM FBG 200-300 Patient does not report symptoms of hypoglycemia. Patient does not report symptoms of hyperglycemia. AFFORDABILITY/ADHERENCE - No cost or adherence barriers Assessment/Plan Problem List Items Addressed This Visit Diabetes (Multi) Relevant Medications insulin glargine (Toujeo Max U-300 SoloStar) 300 unit/mL (3 mL) injection Other Relevant Orders Referral to Clinical Pharmacy Patients diabetes is poorly controlled with most recent A1c of 10.6% (Goal < 7%). Discontinue Lantus due to injection site irritation at higher dosing Discontinue repaglinide (pt preference, non adherent to dosing prior to meals) Initiate Toujeo Max U-300 52 units once daily to limit injection volume Continue Metformin XR 1000mg twice daily, glipizide XL 10mg twice daily Continue Freestyle Tri 3 sensors to monitor blood sugars Libreview invitation sent to email Replace simple carbs with complex carbs - whole grain, whole wheat. Increase protein intake. Declined offer for nutrition referral. Future consideration: Due for urine albumin Counseled on med MOA, administration, side effects, monitoring Adherence at present is estimated to be good. Efforts to improve adherence (if necessary) will be directed at dietary modifications: reduce carbohydrate intake, aim for 60 grams protein daily . PharmD Follow-up: 01/12/24 09:20 PCP Follow-up: Not scheduled (last seen 12/21/23) Notify your healthcare provider if you have any of the following: -Diarrhea or vomiting for more than six hours -Blood sugar >300 mg/dL more than once -Low blood sugar (<70 mg/dL) -Questions about your medications Thank you, Laura Lynch PharmD Continue all meds under the continuation of care with the referring provider and clinical pharmacy team. Verbal consent to manage patient's drug therapy was obtained. They were informed they may decline to participate or withdraw from participation in pharmacy services at any time. documented in this [facility] Work Phone: [phone]) [phone] History of Present illness Narrative* Laura Lynch PharmD - 12/29/2023 9:20 AM EDT Pharmacist Clinic: Diabetes Management Alina Patel is a 63 y.o. female was referred to Clinical Pharmacy Team for diabetes management. Referring Provider: Kristen Caballero DO Diabetes She presents for her follow-up diabetic visit. She has type 2 diabetes mellitus. Her disease coursehas been worsening. There are no hypoglycemic associated symptoms. There are no diabetic associatedsymptoms. There are no hypoglycemic complications. There are no diabetic complications. Risk factors for coronary artery disease include diabetes mellitus, dyslipidemia, hypertension and obesity. Sheis compliant with treatment all of the time. Her weight is stable. When asked about meal planning, she reported none. There is no change in her home blood glucose trend. Her overall blood glucose range is >200 mg/dl. An DEZ inhibitor/angiotensin II receptor eladio is being taken. Eye exam is current. Since last visit, increased Lantus and repaglinide dosing. Reports difficulty remembering to take repaglinide three times daily. Past few days out of town, ate carb dense diet - martin moeller, AM FBG in 300s. She feels more motivated this week to reduce carbs in diet to limit further addition of pharmacotherapy. Has chronic knee pain which limits physical activity, walking is tolerable. In past she was resistant to CGM, now agreeable to try. She was started on chlorthalidone for HTN per PCP however developed s/e (polyuria, leg cramps) and stopping taking, hesitant to try alternate agent. Site of administration: abdomen; Mild bruising, redness at site since increased dose on Lantus - improving PMH of recurrent UTI's, reports UTI 2-3 x per year LAB REVIEW Lab Results Component Value Date LDLCALC 69 12/17/2023 CREATININE 0.50 12/17/2023 Lab Results Component Value Date HGBA1C 10.6 (H) 12/17/2023 HGBA1C 9.5 (H) 09/04/2023 HGBA1C 9.3 (H) 05/08/2023 Lab Results Component Value Date TRIG 314 (H) 12/17/2023 TRIG 518 (H) 06/13/2022 TRIG 170 (H) 11/07/2021 The 10-year ASCVD risk score (Miranda DK, et al., 2019) is: 16.3% Values used to calculate the score: Age: 63 years Sex: Female Is Non- : No Diabetic: Yes Tobacco smoker: No Systolic Blood Pressure: 142 mmHg Is BP treated: Yes HDL Cholesterol: 55 mg/dL Total Cholesterol: 187 mg/dL DIABETES ASSESSMENT CURRENT PHARMACOTHERAPY - Metformin XR 1000mg twice daily - Repaglinide 2mg three times daily before meals - Lantus 42 units once daily Allergies: Codeine and Lisinopril SECONDARY PREVENTION - Statin? Yes - DEZ-I/ARB? Yes - Aspirin? Yes HISTORICAL PHARMACOTHERAPY - Pioglitazone (aches, edema) - Victoza (replaced by Trulicity) - Januvia (ineffective) - Trulicity (suboptimal response) - Mounjaro (GI s/e) SMBG MEASUREMENTS Patient is using: glucometer The patient is currently checking the blood glucose once daily. AM FBG 200-300 Patient does not report symptoms of hypoglycemia. Patient does not report symptoms of hyperglycemia. AFFORDABILITY/ADHERENCE - No cost or adherence barriers Assessment/Plan Problem List Items Addressed This Visit Diabetes (Multi) Patients diabetes is poorly controlled with most recent A1c of 10.6% (Goal < 7%). Increase Lantus to 46 units once daily Continue Metformin XR 1000mg twice daily, repaglinide 2mg three times daily Start Freestyle Tri 3 sensors to monitor blood sugars Provided education on: Frequency of sensor changes, What to do if a sensor falls off, How to interpret readings from Freestyle Tri, Discussed difference between serum glucose and blood glucose levels, Discussed what to do if pt feels like she is having hypoglycemic symptoms but CGM is not showinga hypoglycemic episode, Discussed how often to scan sensor at a minimum, Reviewed data that is available through madhuri and target goals Set up Libreview at follow up Replace simple carbs with complex carbs - whole grain, whole wheat. Increase protein intake. Declined offer for nutrition referral. Future consideration: Switch to U-200 or U-300 basal option (pending ins coverage) per pt preference to limit volume and potentially limit injection site irritation; prefers to exhaust current supply of Lantus first Due for urine albumin Counseled on med MOA, administration, side effects, monitoring Adherence at present is estimated to be good. Efforts to improve adherence (if necessary) will be directed at dietary modifications: reduce carbohydrate intake, aim for 60 grams protein daily . PharmD Follow-up: 01/05/24 0920 PCP Follow-up: Not scheduled (last seen 12/21/23) Notify your healthcare provider if you have any of the following: -Diarrhea or vomiting for more than six hours -Blood sugar >300 mg/dL more than once -Low blood sugar (<70 mg/dL) -Questions about your medications Thank you, Laura Lynch PharmD Continue all meds under the continuation of care with the referring provider and clinical pharmacy team. Verbal consent to manage patient's drug therapy was obtained. They were informed they may decline to participate or withdraw from participation in pharmacy services at any time. documented in this [facility] Work Phone: [phone]) 768-771910-22-2024 History of Present illness Narrative* Laura Lynch PharmD - 12/22/2023 9:30 AM EDT Pharmacist Clinic: Diabetes Management Alina Patel is a 63 y.o. female was referred to Clinical Pharmacy Team for diabetes management. Referring Provider: Kristen Caballero DO Diabetes She presents for her follow-up diabetic visit. She has type 2 diabetes mellitus. Her disease coursehas been worsening. There are no hypoglycemic associated symptoms. There are no diabetic associatedsymptoms. There are no hypoglycemic complications. There are no diabetic complications. Risk factors for coronary artery disease include diabetes mellitus, dyslipidemia, hypertension and obesity. Sheis compliant with treatment all of the time. Her weight is stable. When asked about meal planning, she reported none. There is no change in her home blood glucose trend. Her overall blood glucose range is >200 mg/dl. An DEZ inhibitor/angiotensin II receptor eladio is being taken. Eye exam is current. Since last visit, replaced glipizide with repaglinide and continued Lantus. Reports difficulty remembering to take repaglinide three times daily. Mild diarrhea otherwise tolerating well (prev constipation at baseline) Going on a trip, driving for 3 days. PCP follow up yesterday A1c up from 9.5% to 10.6% , chlorthalidone added for uncontrolled blood pressure. No significant change in blood sugar, AM FBG remains in 200-250 range. Reports using food as comfort, carb dense diet. Not ready to make significant changes yet. Site of administration: abdomen; Mild bruising, redness at site since increased dose on Lantus PMH of recurrent UTI's, reports UTI 2-3 x per year LAB REVIEW Lab Results Component Value Date LDLCALC 69 12/17/2023 CREATININE 0.50 12/17/2023 Lab Results Component Value Date HGBA1C 10.6 (H) 12/17/2023 HGBA1C 9.5 (H) 09/04/2023 HGBA1C 9.3 (H) 05/08/2023 Lab Results Component Value Date TRIG 314 (H) 12/17/2023 TRIG 518 (H) 06/13/2022 TRIG 170 (H) 11/07/2021 The 10-year ASCVD risk score (Miranda WEBB, et al., 2019) is: 16.3% Values used to calculate the score: Age: 63 years Sex: Female Is Non- : No Diabetic: Yes Tobacco smoker: No Systolic Blood Pressure: 142 mmHg Is BP treated: Yes HDL Cholesterol: 55 mg/dL Total Cholesterol: 187 mg/dL DIABETES ASSESSMENT CURRENT PHARMACOTHERAPY - Metformin XR 1000mg twice daily - Repaglinide 1mg three times daily before meals - Lantus 36 units once daily Allergies: Codeine and Lisinopril SECONDARY PREVENTION - Statin? Yes - DEZ-I/ARB? Yes - Aspirin? Yes HISTORICAL PHARMACOTHERAPY - Pioglitazone (aches, edema) - Victoza (replaced by Trulicity) - Januvia (ineffective) - Trulicity (suboptimal response) - Mounjaro (GI s/e) SMBG MEASUREMENTS Patient is using: glucometer The patient is currently checking the blood glucose once daily. AM FBG 200-250 Patient does not report symptoms of hypoglycemia. Patient does not report symptoms of hyperglycemia. AFFORDABILITY/ADHERENCE - No cost or adherence barriers Assessment/Plan Problem List Items Addressed This Visit Diabetes (Multi) Relevant Orders Referral to Clinical Pharmacy Patients diabetes is poorly controlled with most recent A1c of 10.6% (Goal < 7%). Increase Lantus to 42 units once daily and increase repaglinide to 2mg three times daily Continue Metformin XR 1000mg twice daily Continue home blood sugar testing frequency once daily in the morning Discussed making diet choices previously discussed and how that may affect how much insulin she will require Future consideration: Switch to U-200 or U-300 basal option (pending ins coverage) per pt preference to limit volume and potentially limit injection site irritation; prefers to exhaust current supplyof Lantus first Counseled on med MOA, administration, side effects, monitoring Adherence at present is estimated to be good. Efforts to improve adherence (if necessary) will be directed at dietary modifications: reduce carbohydrate intake, aim for 60 grams protein daily . PharmD Follow-up: 12/29/23 9:30 AM PCP Follow-up: 01/04/24 Notify your healthcare provider if you have any of the following: -Diarrhea or vomiting for more than six hours -Blood sugar >300 mg/dL more than once -Low blood sugar (<70 mg/dL) -Questions about your medications Thank you, Laura Lynch PharmD Continue all meds under the continuation of care with the referring provider and clinical pharmacy team. Verbal consent to manage patient's drug therapy was obtained. They were informed they may decline to participate or withdraw from participation in pharmacy services at any time. [facility]: [phone] 385-725510-21-2024 Evaluation + Plan note* Assessment & Plan Note - Kristen Caballero DO - 2023 8:40 AM EDTAssociated Problem(s): Hyperlipidemia LDL goal <100 -Her triglycerides are high which will improve with the improvement of her blood sugars -We will check her cholesterol once a year per Medicare protocol [facility] Work Phone: [phone] Evaluation + Plan note* Assessment & Plan Note - Kristen Caballero DO - 2023 8:40 AM EDTAssociated Problem(s): HTN (hypertension) -Unfortunately blood pressure is not under good control -She will continue with her current antihypertensive regimen and we are adding chlorthalidone 25 mgdaily -She will check her blood pressures at home and give me an update after 1 week and I will see her back in 2 weeks with follow-up and lab work -She will bring her blood pressure monitor with her Orders: amLODIPine (Norvasc) 5 mg tablet; Take 1 tablet (5 mg) by mouth 2 times a day. losartan (Cozaar) 100 mg tablet; Take 1 tablet (100 mg) by mouth once daily. chlorthalidone (Hygroton) 25 mg tablet; Take 1 tablet (25 mg) by mouth once daily. Basic Metabolic Panel; Future [facility] Work Phone: [phone] 111-135810-21-2024 Evaluation + Plan note* Assessment & Plan Note - Kristen Caballero DO - 2023 8:40 AM EDTAssociated Problem(s): Carotid disease, bilateral ([facility]) -Her carotids were last checked in 2021 and we will check them periodically -We will continue to aggressively modify her risk factors [facility] Work Phone: [phone] Evaluation + Plan note* Assessment & Plan Note - Kristen Caballero DO - 2023 8:40 AM EDTAssociated Problem(s): Upper respiratory tract infection -She has signs and symptoms of an upper respiratory tract infection so I am giving her a Z-Moncho Orders: azithromycin (Zithromax) 250 mg tablet; Take 2 tablets (500 mg) by mouth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 Taking Active cranberry extract 200 mg capsule [id number] Yes Take by mouth. Historical Provider, Taking Active diclofenac sodium (Voltaren) 1 % gel [id number] Yes Apply 4.5 inches (4 g) topically 4 times a day as needed (pain). Bebe Cee, EFFICIENCY EXPERT-OPERATING TABLE ASSEMBLER Taking Active docusate sodium (Colace) 100 mg tablet [id number] Yes Take 1 tablet (100 mg) by mouth once daily. Historical Provider, Taking Active esomeprazole (NexIUM) [address] capsule [id number] Yes Take 1 capsule (40 mg) by mouth once daily in the morning. Take before meals. Do not open capsule. Kristen Caballero, DO Taking Active glipiZIDE XL (Glucotrol XL) 10 mg 24 hr tablet [id number] Yes Take 1 tablet (10 mg) by mouth 2 timesa day. Kristen Caballero, DO Taking Active ibuprofen 200 mg tablet [id number] Yes Take 1 tablet (200 mg) by mouth every 6 hours. Historical Provider, Taking Active Discontinued 12/01/23 0949 insulin glargine (Lantus Solostar U-100 Insulin) 100 unit/mL (3 mL) pen [id number] Yes Inject 30 Units under the skin once daily in the morning. Take as directed per insulin instructions. Kristen Caballero, DO Taking Active lancets misc [id number] Yes TEST ONCE DAILY Kristen Caballero, DO Taking Active linaCLOtide (Linzess) 145 mcg capsule [id number] Yes Take 1 capsule (145 mcg) by mouth once daily inthe morning. Take before meals. Do not crush or chew. Kin Swift, DO Taking Active losartan (Cozaar) 100 mg tablet [id number] Yes Take 1 tablet (100 mg) by mouth once daily. Kristen Caballero, DO Taking Active magnesium oxide-Mg AA chelate (Magnesium, oxide/AA chelate,) 300 mg capsule [id number] Yes Take 1 capsule (300 mg) by mouth once daily. Historical Provider, Taking Active metFORMIN XR 500 mg 24 hr tablet [id number] Yes Take 2 tablets (1,000 mg) by mouth 2 times a day. Donot crush, chew, or split. Kristen Caballero, DO Taking Active pantoprazole (ProtoNix) 40 mg EC tablet [id number] Take 1 tablet (40 mg) by mouth once daily in the morning. Take before meals. Do not crush, chew, or split. Kristen Caballero DO 11/10/232358 pen needle, diabetic (BD Ultra-Fine Fiorella Pen Needle) 32 gauge x needle [id number] Yes 1 each once daily. Kristen Caballero DO Taking Active pravastatin (Pravachol) 20 mg tablet [id number] Yes Take 2 tablets by mouth daily (having problems swallowing the larger tablet) Kristen Caballero, DO Taking Active sulfamethoxazole-trimethoprim (Bactrim) 400-80 mg tablet [id number] Yes Take 1 tablet by mouth 2 times a day. For current UTI Historical Provider, Taking Active Past Medical History: Diagnosis Date Dermatophytosis of foot 01/16/2010 Hypomagnesemia 01/27/2023 Other pneumothorax 01/13/2023 Personal history of other diseases of the circulatory system History of hypertension Personal history of other endocrine, nutritional and metabolic disease History of diabetes mellitus Personal history of other endocrine, nutritional and metabolic disease History of hyperlipidemia Past Surgical History: Procedure Laterality Date OTHER SURGICAL HISTORY 10/04/2019 section OTHER SURGICAL HISTORY 10/04/2019 Cholecystectomy OTHER SURGICAL HISTORY 11/02/2020 Complete colonoscopy OTHER SURGICAL HISTORY 04/24/2020 Knee arthroscopy ROS See HPI Physical Exam Vitals and nursing note reviewed. Constitutional: General: She is not in acute distress. Appearance: Normal appearance. She is not ill-appearing or toxic-appearing. Cardiovascular: Rate and Rhythm: Normal rate and regular rhythm. Abdominal: General: There is no distension. Palpations: Abdomen is soft. Tenderness: There is no abdominal tenderness. There is no right CVA tenderness, left CVA tenderness, guarding or rebound. Genitourinary: General: Normal vulva. Vagina: No vaginal discharge. Comments: Per pt report Skin: General: Skin is warm and dry. Neurological: General: No focal deficit present. Mental Status: She is alert and oriented to person, place, and time. Psychiatric: Mood and Affect: Mood normal. Behavior: Behavior normal. Recent Results (from the past 2 hour(s)) POCT UA (nonautomated w/o microscopy) manually resulted Collection Time: 12/07/23 12:34 PM Result Value Ref Range POC Color, Urine Yellow Straw, Yellow, Light-Yellow POC Appearance, Urine Hazy (A) Clear POC Glucose, Urine 500 (3+) (A) NEGATIVE mg/dl POC Bilirubin, Urine NEGATIVE NEGATIVE POC Ketones, Urine TRACE (A) NEGATIVE mg/dl POC Specific Bessie, Urine 1.015 1.005 - 1.035 POC Blood, Urine MODERATE (2+) (A) NEGATIVE POC PH, Urine 5.0 No Reference Range Established PH POC Protein, Urine NEGATIVE NEGATIVE, 30 (1+) mg/dl POC Urobilinogen, Urine 0.2 0.2, 1.0 EU/DL Poc Nitrite, Urine POSITIVE (A) NEGATIVE POC Leukocytes, Urine TRACE (A) NEGATIVE Assessment/Plan/MDM Alina was seen today for uti. Diagnoses and all orders for this visit: Acute cystitis with hematuria (Primary) - Discontinue: ciprofloxacin (Cipro) 500 mg tablet; Take 1 tablet (500 mg) by mouth 2 times a day for 5 days. - ciprofloxacin (Cipro) 500 mg tablet; Take 1 tablet (500 mg) by mouth 2 times a day for 5 days. - Urine Culture Dysuria - POCT UA (nonautomated w/o microscopy) manually resulted Pt declines referral to urology today for frequent UTI as this is her 3rd occurrence this year. States she will discuss this with her PCP next visit. Encouraged patient increase water intake, avoid caffeine/energy drinks, void after intercourse, wipe front to back after voiding and bowel movements,avoid baths/hot tubs/pools, avoid tight fitting garments, empty bladder frequently. Patient's clinical presentation is otherwise unremarkable at this time. Patient is discharged with instructions to follow-up with primary care or seek emergency medical attention for worsening symptoms or any new concerns. I did personally review Alina's past medical history, surgical history, social history, as well as family history (when relevant). In this case, I also oversaw the her drug management by reviewing hermedication list, allergy list, as well as the medications that I prescribed during the UC course and/or recommended as an out-patient (including possible OTC medications such as acetaminophen, NSAIDs , etc). After reviewing the items above, I did look at previous medical documentation, such as recent hospitalizations, office visits, and/or recent consultations with PCP/specialist. SDOH: Another factor that I considered in Alina's care was her Social Determinants of Health (SDOH).During this UC encounter, she did not have social determinants of health. Those SDOH influencing Alina's care are: none Octavio Sadler CNP [facility] [phone] [facility] Work Phone: 1([phone]) 272-811010-01-2024 History of Present illness Narrative* Laura Lynch, PharmD - 12/01/2023 9:30 AM EDT Pharmacist Clinic: Diabetes Management Alina Patel is a 62 y.o. female was referred to Clinical Pharmacy Team for diabetes management. Referring Provider: Kristen Caballero DO Diabetes She presents for her follow-up diabetic visit. She has type 2 diabetes mellitus. There are no hypoglycemic associated symptoms. There are no diabetic associated symptoms. There are no hypoglycemic complications. There are no diabetic complications. Risk factors for coronary artery disease include diabetes mellitus, dyslipidemia, hypertension and obesity. She is compliant with treatment all of thetime. Her weight is stable. When asked about meal planning, she reported none. There is no change in her home blood glucose trend. Her overall blood glucose range is >200 mg/dl. An DEZ inhibitor/angiotensin II receptor eladio is being taken. Eye exam is current. Since last visit, Lantus increased from 10 units to 16 units daily. No significant change in blood sugars. A few mornings with AM FBG > 300 after carb dense dinners - pizza. Site of administration: abdomen , no issues with injection. PMH of recurrent UTI's, reports UTI 2-3 x per year LAB REVIEW Lab Results Component Value Date CREATININE 0.57 09/04/2023 Lab Results Component Value Date HGBA1C 9.5 (H) 09/04/2023 HGBA1C 9.3 (H) 05/08/2023 HGBA1C 7.9 (A) 09/22/2022 Lab Results Component Value Date TRIG 518 (H) 06/13/2022 TRIG 170 (H) 11/07/2021 TRIG 201 (H) 05/22/2021 The 10-year ASCVD risk score (Miranda DK, et al., 2019) is: 15.5% Values used to calculate the score: Age: 62 years Sex: Female Is Non- : No Diabetic: Yes Tobacco smoker: No Systolic Blood Pressure: 138 mmHg Is BP treated: Yes HDL Cholesterol: 39 mg/dL Total Cholesterol: 170 mg/dL DIABETES ASSESSMENT CURRENT PHARMACOTHERAPY - Metformin XR 1000mg twice daily - Glipizide XL 10mg twice daily - Lantus 16 units once daily Allergies: Codeine and Lisinopril SECONDARY PREVENTION - Statin? Yes - DEZ-I/ARB? Yes - Aspirin? Yes HISTORICAL PHARMACOTHERAPY - Pioglitazone (aches, edema) - Victoza (replaced by Trulicity) - Januvia (ineffective) - Mounjaro (GI s/e) SMBG MEASUREMENTS Patient is using: glucometer The patient is currently checking the blood glucose once daily. AM FBG 250-300 Highest 368 (after pizza) Patient does not report symptoms of hypoglycemia. Patient does not report symptoms of hyperglycemia. AFFORDABILITY/ADHERENCE - No cost or adherence barriers Assessment/Plan Problem List Items Addressed This Visit Diabetes (Multi) Patients diabetes is poorly controlled with most recent A1c of 9.5% (Goal < 7%). Increase Lantus to 26 units once daily for 3 days then increase to 30 units once daily if AM FBG remains > 200. Continue Metformin XR 1000mg twice daily, Glipizide XL 10mg twice daily Continue home blood sugar testing frequency once daily in the morning Discussed carb dense diet, reducing portions of simple carbs and replacing with protein - lean meats, beans, egg whites, nuts. Swap simple carbs (pastas, breads) for complex carbs (whole grain, wholewheat) Recommend lipid panel Adherence at present is estimated to be good. Efforts to improve adherence (if necessary) will be directed at dietary modifications: reduce carbohydrate intake, aim for 60 grams protein daily . Education Provided to Patient: Counseled patient on MOA, expectations, side effects, duration of therapy, administration, and monitoring parameters. PharmD Follow-up: 12/08/23 with covering pharmacist; then 12/15/23 PCP Follow-up: 12/21/23 Notify your healthcare provider if you have any of the following: -Diarrhea or vomiting for more than six hours -Blood sugar >300 mg/dL more than once -Low blood sugar (<70 mg/dL) -Questions about your medications Thank you, Xena Lynch PharmD Continue all meds under the continuation of care with the referring provider and clinical pharmacy team. Verbal consent to manage patient's drug therapy was obtained. They were informed they may decline to participate or withdraw from participation in pharmacy services at any time. documented in this [facility] Work Phone: [phone]) 394-269009-23-2024 History of Present illness Narrative* Laura Lynch PharmD - 11/23/2023 9:30 AM EDT Pharmacist Clinic: Diabetes Management Alina Patel is a 62 y.o. female was referred to Clinical Pharmacy Team for diabetes management. Referring Provider: Kristen Caballero DO Diabetes She presents for her follow-up diabetic visit. She has type 2 diabetes mellitus. There are no diabetic associated symptoms. There are no hypoglycemic complications. There are no diabetic complications. Risk factors for coronary artery disease include diabetes mellitus, dyslipidemia, hypertension and obesity. She is compliant with treatment all of the time. Her weight is stable. When asked about meal planning, she reported none. There is no change in her home blood glucose trend. Her overall blood glucose range is >200 mg/dl. An DEZ inhibitor/angiotensin II receptor eladio is being taken. Eye exam is current. Since last visit, Mounjaro stopped and Lantus started due to suboptimal glycemic response and GI side effects. Blood sugars trending down, reports fasting avg 240s (reduced from 300s) Site of administration: abdomen , no issues with injection. LAB REVIEW Lab Results Component Value Date CREATININE 0.57 09/04/2023 Lab Results Component Value Date HGBA1C 9.5 (H) 09/04/2023 HGBA1C 9.3 (H) 05/08/2023 HGBA1C 7.9 (A) 09/22/2022 Lab Results Component Value Date TRIG 518 (H) 06/13/2022 TRIG 170 (H) 11/07/2021 TRIG 201 (H) 05/22/2021 The 10-year ASCVD risk score (Miranda WEBB, et al., 2019) is: 15.5% Values used to calculate the score: Age: 62 years Sex: Female Is Non- : No Diabetic: Yes Tobacco smoker: No Systolic Blood Pressure: 138 mmHg Is BP treated: Yes HDL Cholesterol: 39 mg/dL Total Cholesterol: 170 mg/dL DIABETES ASSESSMENT CURRENT PHARMACOTHERAPY - Metformin XR 1000mg twice daily - Glipizide XL 10mg twice daily - Lantus 10 units once daily Allergies: Codeine and Lisinopril SECONDARY PREVENTION - Statin? Yes - DEZ-I/ARB? Yes - Aspirin? Yes HISTORICAL PHARMACOTHERAPY - Pioglitazone (aches, edema) - Victoza (replaced by Trulicity) - Januvia (ineffective) - Mounjaro (GI s/e) SMBG MEASUREMENTS Patient is using: glucometer The patient is currently checking the blood glucose a few times per week. AM FBG 200-250 Patient does not report symptoms of hypoglycemia. Patient does not report symptoms of hyperglycemia. AFFORDABILITY/ADHERENCE - No cost or adherence barriers Assessment/Plan Problem List Items Addressed This Visit Diabetes (Multi) Patients diabetes is poorly controlled with most recent A1c of 9.5% (Goal < 7%). Increase Lantus to 16 units once daily Continue Metformin XR 1000mg twice daily, Glipizide XL 10mg twice daily Increase home blood sugar testing frequency to once daily in the morning Recommend lipid panel Adherence at present is estimated to be good. Efforts to improve adherence (if necessary) will be directed at dietary modifications: reduce carbohydrate intake, aim for 60 grams protein daily . Education Provided to Patient: Counseled patient on MOA, expectations, side effects, duration of therapy, administration, and monitoring parameters. Discussed hypoglycemia management. PharmD Follow-up: 12/01/23 PCP Follow-up: 12/21/23 Notify your healthcare provider if you have any of the following: -Diarrhea or vomiting for more than six hours -Blood sugar >300 mg/dL more than once -Low blood sugar (<70 mg/dL) -Questions about your medications Thank you, Xena Lynch PharmD Continue all meds under the continuation of care with the referring provider and clinical pharmacy team. Verbal consent to manage patient's drug therapy was obtained. They were informed they may decline to participate or withdraw from participation in pharmacy services at any time. documented in this [facility] Work Phone: [phone]) 123-831609-16-2024 History of Present illness Narrative* Laura Lynch, PharmD - 11/16/2023 12:00 PM EDT Pharmacist Clinic: Diabetes Management Alina Patel is a 62 y.o. female was referred to Clinical Pharmacy Team for diabetes management. Referring Provider: Kristen Caballero DO Diabetes She presents for her follow-up diabetic visit. She has type 2 diabetes mellitus. There are no diabetic associated symptoms. There are no hypoglycemic complications. There are no diabetic complications. Risk factors for coronary artery disease include diabetes mellitus, dyslipidemia, hypertension and obesity. She is compliant with treatment all of the time. Her weight is stable. When asked about meal planning, she reported none. There is no change in her home blood glucose trend. Her overall blood glucose range is >200 mg/dl. An DEZ inhibitor/angiotensin II receptor eladio is being taken. Eye exam is current. Since last visit, Mounjaro increased to 10mg weekly for one dose. Had nausea and abdominal crampingfor 1-2 days. No significant effect on appetite or glycemic control. Blood sugars remain uncontrolled reports 200-300 range. Reports constipation and diarrhea at baseline, no significant change, scheduled to see GI. Site of administration: abdomen , no issues with injection. LAB REVIEW Lab Results Component Value Date CREATININE 0.57 09/04/2023 Lab Results Component Value Date HGBA1C 9.5 (H) 09/04/2023 HGBA1C 9.3 (H) 05/08/2023 HGBA1C 7.9 (A) 09/22/2022 Lab Results Component Value Date TRIG 518 (H) 06/13/2022 TRIG 170 (H) 11/07/2021 TRIG 201 (H) 05/22/2021 The 10-year ASCVD risk score (Miranda WEBB, et al., 2019) is: 15.5% Values used to calculate the score: Age: 62 years Sex: Female Is Non- : No Diabetic: Yes Tobacco smoker: No Systolic Blood Pressure: 138 mmHg Is BP treated: Yes HDL Cholesterol: 39 mg/dL Total Cholesterol: 170 mg/dL DIABETES ASSESSMENT CURRENT PHARMACOTHERAPY - Metformin XR 1000mg twice daily - Glipizide XL 10mg twice daily - Mounjaro 10mg once weekly (Thursday) Allergies: Codeine and Lisinopril SECONDARY PREVENTION - Statin? Yes - DEZ-I/ARB? Yes - Aspirin? Yes HISTORICAL PHARMACOTHERAPY - Pioglitazone (aches, edema) - Victoza (replaced by Trulicity) - Januvia (ineffective) SMBG MEASUREMENTS Patient is using: glucometer The patient is currently checking the blood glucose a few times per week. AM FBG 287 Patient does not report symptoms of hypoglycemia. Patient does not report symptoms of hyperglycemia. AFFORDABILITY/ADHERENCE - No cost or adherence barriers Assessment/Plan Problem List Items Addressed This Visit Diabetes (Multi) Relevant Orders Follow Up In Clinical Pharmacy Patients diabetes is poorly controlled with most recent A1c of 9.5% (Goal < 7%). Discontinue Mounjaro (suboptimal response and GI side effects) Initiate Lantus 10 units once daily Continue Metformin XR 1000mg twice daily, Glipizide XL 10mg twice daily Increase home blood sugar testing frequency to once daily in the morning Recommend lipid panel Adherence at present is estimated to be good. Efforts to improve adherence (if necessary) will be directed at dietary modifications: reduce carbohydrate intake, aim for 60 grams protein daily . Education Provided to Patient: Counseled patient on MOA, expectations, side effects, duration of therapy, administration, and monitoring parameters. Discussed hypoglycemia management. PharmD Follow-up: 1 week PCP Follow-up: 12/20 Notify your healthcare provider if you have any of the following: -Diarrhea or vomiting for more than six hours -Blood sugar >300 mg/dL more than once -Low blood sugar (<70 mg/dL) -Questions about your medications Thank you, Xena Lynch PharmD Continue all meds under the continuation of care with the referring provider and clinical pharmacy team. Verbal consent to manage patient's drug therapy was obtained. They were informed they may decline to participate or withdraw from participation in pharmacy services at any time. [facility] [place] Work Phone: [phone]) 990-486209-03-2024 History of Present illness Narrative* Laura Lynch PharmD - 11/03/2023 9:30 AM EDT Pharmacist Clinic: Diabetes Management Alina Patel is a 62 y.o. female was referred to Clinical Pharmacy Team for diabetes management. Referring Provider: Kristen Caballero DO Diabetes She presents for her follow-up diabetic visit. She has type 2 diabetes mellitus. There are no hypoglycemic complications. There are no diabetic complications. Risk factors for coronary artery diseaseinclude diabetes mellitus, dyslipidemia, hypertension and obesity. She is compliant with treatment all of the time. Her weight is stable. When asked about meal planning, she reported none. There is no change in her home blood glucose trend. Her overall blood glucose range is >200 mg/dl. Since last visit, transitioned from Trulicity to Mounjaro due to suboptimal response and mild GI s/e with Trulicity. Has taken 4 doses of Mounjaro 5mg so far, tolerating better and no longer with anyGI s/e. Normal bowel movements. Mild appetite suppression. No significant change in blood sugars. Reports constipation and diarrhea at baseline, no significant change, scheduled to see GI. Site of administration: abdomen , no issues with injection. LAB REVIEW Lab Results Component Value Date CREATININE 0.57 09/04/2023 Lab Results Component Value Date HGBA1C 9.5 (H) 09/04/2023 HGBA1C 9.3 (H) 05/08/2023 HGBA1C 7.9 (A) 09/22/2022 Lab Results Component Value Date TRIG 518 (H) 06/13/2022 TRIG 170 (H) 11/07/2021 TRIG 201 (H) 05/22/2021 The 10-year ASCVD risk score (Miranda WEBB, et al., 2019) is: 15.5% Values used to calculate the score: Age: 62 years Sex: Female Is Non- : No Diabetic: Yes Tobacco smoker: No Systolic Blood Pressure: 138 mmHg Is BP treated: Yes HDL Cholesterol: 39 mg/dL Total Cholesterol: 170 mg/dL DIABETES ASSESSMENT CURRENT PHARMACOTHERAPY - Metformin XR 1000mg twice daily - Glipizide XL 10mg twice daily - Mounjaro 5mg once weekly (Thursday) Allergies: Codeine and Lisinopril SECONDARY PREVENTION - Statin? Yes - DEZ-I/ARB? Yes - Aspirin? Yes HISTORICAL PHARMACOTHERAPY - Pioglitazone (aches, edema) - Victoza (replaced by Trulicity) - Januvia (ineffective) SMBG MEASUREMENTS Patient is using: glucometer The patient is currently checking the blood glucose a few times per week. AM FBG AVG 200s Patient does not report symptoms of hypoglycemia. Patient does not report symptoms of hyperglycemia. AFFORDABILITY/ADHERENCE - No cost or adherence barriers Assessment/Plan Problem List Items Addressed This Visit Diabetes (Multi) Relevant Orders Follow Up In Clinical Pharmacy Patients diabetes is poorly controlled with most recent A1c of 9.5% (Goal < 7%). Increase Mounjaro to 10mg subcutaneous once weekly Continue Metformin XR 1000mg twice daily, Glipizide XL 10mg twice daily Recommend lipid panel Adherence at present is estimated to be good. Efforts to improve adherence (if necessary) will be directed at dietary modifications: reduce carbohydrate intake, aim for 60 grams protein daily . Education Provided to Patient: Counseled patient on Mounjaro MOA, expectations, side effects, duration of therapy, administration,and monitoring parameters. Provided detailed dosing and administration counseling to ensure proper technique. Reviewed Mounjaro titration schedule, starting with 2.5 mg once weekly to a goal of 15 mg once weekly if tolerated Counseled patient on the benefits of GLP-1ra glycemic control and weight loss Reviewed storage requirements of Mounjaro when not in use, and when to administer the medication ifa dose is missed. Advised patient that they may experience improved satiety after meals and portion sizes of meals may be reduced as doses of Mounjaro increase. PharmD Follow-up: 4 weeks PCP Follow-up: 12/20 Notify your healthcare provider if you have any of the following: -Diarrhea or vomiting for more than six hours -Blood sugar >300 mg/dL more than once -Low blood sugar (<70 mg/dL) -Questions about your medications Thank you, Xena Lynch PharmD Continue all meds under the continuation of care with the referring provider and clinical pharmacy team. Verbal consent to manage patient's drug therapy was obtained. They were informed they may decline to participate or withdraw from participation in pharmacy services at any time. documented in this [facility] Work Phone: [phone]) 458-617907-12-2024 Evaluation + Plan note* Assessment & Plan Note - Kristen Jamila DO Federico - 09/11/2023 11:50 AM EDTAssociated Problem(s): GERD (gastroesophageal reflux disease) -She has tried omeprazole without success -We are prescribing pantoprazole next and if is not controlling her symptoms we will try to order the esomeprazole again for her [facility] Work Phone: [phone] Evaluation + Plan note* Assessment & Plan Note - Kristen Caballero DO - 09/11/2023 11:50 AM EDTAssociated Problem(s): Hordeolum externum of left lower eyelid -She is going to continue to use warm compresses throughout the weekend and give me an update on Thursday [facility] Work Phone: [phone] Miscellaneous Notes* Assessment & Plan Note - Kristen Caballero DO - 09/11/2023 11:50 AM EDTAssociated Problem(s): GERD (gastroesophageal reflux disease) -She has tried omeprazole without success -We are prescribing pantoprazole next and if is not controlling her symptoms we will try to order the esomeprazole again for her * Assessment & Plan Note - Kristen Caballero DO - 09/11/2023 11:50 AM EDT Associated Problem(s): Hordeolum externum of left lower eyelid -She is going to continue to use warm compresses throughout the weekend and give me an update on Thursday * Assessment & Plan Note - Kristen Caballero DO - 09/11/2023 11:49 AM EDT Associated Problem(s): Diabetes (Multi) -She is enrolled in the clinical pharmacy program for diabetes and unfortunately her hemoglobin X6ctlfq up -The Trulicity has been increased to 3 mg and she has agreed to give me an update on her blood sugars in a couple of weeks -At the very least we will see her back in 3 months for another hemoglobin A1c * Assessment & Plan Note - Kristen Caballero DO - 09/11/2023 11:49 AM EDT Associated Problem(s): HTN (hypertension) -Her blood pressure was a little elevated today and she will continue to monitor closely at home with her personal device -I asked that she bring her blood pressure monitor with her to her next follow- up visit documented [facility] [place] Work Phone: [phone] Evaluation + Plan note* Assessment & Plan Note - Kristen Caballero DO - 09/11/2023 11:49 AM EDTAssociated Problem(s): Diabetes (Multi) -She is enrolled in the clinical pharmacy program for diabetes and unfortunately her hemoglobin D2xiizt up -The Trulicity has been increased to 3 mg and she has agreed to give me an update on her blood sugars in a couple of weeks -At the very least we will see her back in 3 months for another hemoglobin A1c [facility] Work Phone: [phone] Evaluation + Plan note* Assessment & Plan Note - Kristen Caballero DO - 09/11/2023 11:49 AM EDTAssociated Problem(s): HTN (hypertension) -Her blood pressure was a little elevated today and she will continue to monitor closely at home with her personal device -I asked that she bring her blood pressure monitor with her to her next follow- up visit [facility] Work Phone: [phone] History of Present illness Narrative* Kristen Caballero DO - 09/11/2023 11:00 AM EDT Subjective Patient ID: Alina Patel is a 62 y.o. female who presents for Follow-up (Patient reports a sty on her left eye, present for 3 weeks. ). HPI She is here today for her routine 3-month checkup. When she arrived her blood pressure was quite generous but after sitting for some time it did come down somewhat. She states in recent times she hasbeen checking it at home and averaging systolic readings in the 130s and diastolics in the 70s. Lisa has been following closely with the pharmacology program for her diabetes and unfortunately her hemoglobin A1c went up from last time. They have increased the dose of her Trulicity and she will be getting the prescription very soon. I have asked that she give me an update on her blood sugars in the next several weeks as we can work together to try to get her numbers down. She states she checks with them once a month. We did conduct a review of systems and she does complain of some allergy symptoms. She also developed a stye on her left lower lid a few weeks ago and she has been using warm compresses. It does look like a slight raised bump and she will continue with the compresses and give me an update early next week. We also discussed her gastrointestinal symptoms and she does have an appointment to see GI later this month. She has had to wait some time. We also talked about her acid reflux and we have had difficulties getting her esomeprazole approved through the plan. She has tried omeprazole before prescription and it was not successful in controlling her symptoms. She also tried various [id number] brands but we will try to send a prescription in for her pantoprazole and she will let me know if it is not effective. If it is not we might try to apply again to get her esomeprazole prescription. We did review her laboratory test results and her sodium level was off slightly. In looking at backat the last 4 years she does occasionally have a low sodium but is borderline. We will continue to monitor. I will summarize everything in a problem based format. Review of Systems Constitutional: Negative for fatigue. HENT: Positive for congestion. Respiratory: Negative for cough, shortness of breath and wheezing. Cardiovascular: Negative for chest pain, palpitations and leg swelling. Gastrointestinal: Positive for constipation and diarrhea. Negative for abdominal pain, blood in stool, nausea and vomiting. Musculoskeletal: Negative for arthralgias and back pain. Objective Physical Exam Vitals and nursing note reviewed. Constitutional: General: She is not in acute distress. Appearance: Normal appearance. HENT: Head: Normocephalic and atraumatic. Eyes: Conjunctiva/sclera: Conjunctivae normal. Cardiovascular: Rate and Rhythm: Normal rate and regular rhythm. Heart sounds: Normal heart sounds. Pulmonary: Effort: No respiratory distress. Breath sounds: No wheezing. Abdominal: Palpations: Abdomen is soft. Tenderness: There is no abdominal tenderness. There is no guarding. Musculoskeletal: General: No swelling. Normal range of motion. Skin: General: Skin is warm and dry. Neurological: General: No focal deficit present. Mental Status: She is alert and oriented to person, place, and time. Psychiatric: Behavior: Behavior normal. Recent Results (from the past 504 hour(s)) Hemoglobin A1C Collection Time: 09/04/23 7:44 AM Result Value Ref Range Hemoglobin A1C 9.5 (H) see below % Estimated Average Glucose 226 Not Established mg/dL Basic Metabolic Panel Collection Time: 09/04/23 7:44 AM Result Value Ref Range Glucose 315 (H) 74 - 99 mg/dL Sodium 133 (L) 136 - 145 mmol/L Potassium 4.2 3.5 - 5.3 mmol/L Chloride 97 (L) 98 - 107 mmol/L Bicarbonate 24 21 - 32 mmol/L Anion Gap 16 10 - 20 mmol/L Urea Nitrogen 26 (H) 6 - 23 mg/dL Creatinine 0.57 0.50 - 1.05 mg/dL eGFR >90 >60 mL/min/1.73m*2 Calcium 9.4 8.6 - 10.3 mg/dL Assessment/Plan Problem List Items Addressed This Visit ICD-10-CM Diabetes (Multi) E11.9 -She is enrolled in the clinical pharmacy program for diabetes and unfortunately her hemoglobin F3cuism up -The Trulicity has been increased to 3 mg and she has agreed to give me an update on her blood sugars in a couple of weeks -At the very least we will see her back in 3 months for another hemoglobin A1c Relevant Medications glipiZIDE XL (Glucotrol XL) 10 mg 24 hr tablet metFORMIN XR 500 mg 24 hr tablet Other Relevant Orders Hemoglobin A1C GERD (gastroesophageal reflux disease) K21.9 -She has tried omeprazole without success -We are prescribing pantoprazole next and if is not controlling her symptoms we will try to order the esomeprazole again for her Relevant Medications pantoprazole (ProtoNix) 40 mg EC tablet HTN (hypertension) - Primary I10 -Her blood pressure was a little elevated today and she will continue to monitor closely at home with her personal device -I asked that she bring her blood pressure monitor with her to her next follow- up visit Relevant Medications amLODIPine (Norvasc) 5 mg tablet losartan (Cozaar) 100 mg tablet Other Relevant Orders Basic Metabolic Panel Hyperlipidemia LDL goal <100 E78.5 Relevant Medications pravastatin (Pravachol) 20 mg tablet Other Relevant Orders Lipid Panel Hordeolum externum of left lower eyelid H00.015 -She is going to continue to use warm compresses throughout the weekend and give me an update on Thursday Kristen Caballero DO documented in this [facility] Work Phone: [phone] Instructions* Patient Instructions* Kristen Caballero DO - 09/11/2023 11:00 AM EDT As we discussed your blood pressure was a little bit generous today when you arrive so please keep checking it at home and you have the opportunity to sit and relax for 10 to 20 minutes. Give me an update and please also bring your blood pressure monitor with you to your next 3-month follow-up Please keep putting warm compresses on your lower lid and give me an update on Thursday on how you are doing I am glad that your Trulicity dose was increased and give me an update on your blood sugars in the next couple of weeks Please try the pantoprazole for your acid reflux. We might get alfredo and it might work well for youbut if it does not then we will appeal again to get your esomeprazole covered At the very least we will see you back in 3 months and just prior to that visit you will go for fasting lab work documented in this [facility] Work Phone: [phone]) 332-213407-11-2024 NoteHNO ID: [id number] Author: XENIA REYNOLDS APRN.CNP Service: ? Author Type: Nurse Practitioner Type: Progress Notes Filed: 09/10/2023 08:17 Note Text: Dry Janitor offered: Patient declines. Alina Patel is a 62 year old female who presents for vaginal pruritis for 2 week(s). Vaginal discharge: none. Itching: YES Dyspareunia: N/A Fever/chills: No Abdominal pain: No Bladder: Negative for dysuria or frequency Bowel: No blood in stool, pain with BM, tarry stool, persistent diarrhea or constipation Past medical, surgical, social history, medications and allergies reviewed and updated. OBJECTIVE: Wt 234 lb 6.4 oz (106.3kg) GENERAL: Well developed, well nourished in no apparent distress PELVIC: external genitalia normal, normal Bartholin's glands, urethra, Toughkenamon's glands, no vulvar lesions, physiologic discharge present, normal appearing perineal body and perianal region, labia majora and right groin area red ASSESSMENT/PLAN: 1. Vulvar irritation - ICD9: 624.8, ICD10: N90.89 Will notify patient of test results. - EMMA/TRICHOMONAS NAAT - BACTERIAL VAGINOSIS NAAT - Diflucan and Lotrisone ordered - If irritation continue biopsy should be performed Xenia Reynolds APRN.CNP Medical Decision Making: Problems: Low: Acute, uncomplicated illness or injury Data: Unique test(s) ordered: 2 Risk: Moderate: Drug management Medical Decision Making Level: [facility] History of Present illness Narrative* Xenia Reynolds APRN.CNP - 09/10/2023 8:00 AM EDT Dry Janitor offered: Patient declines. Alina Patel is a 62 year old female who presents for vaginal pruritis for 2 week(s). Vaginal discharge: none. Itching: YES Dyspareunia: N/A Fever/chills: No Abdominal pain: No Bladder: Negative for dysuria or frequency Bowel: No blood in stool, pain with BM, tarry stool, persistent diarrhea or constipation Past medical, surgical, social history, medications and allergies reviewed and updated. OBJECTIVE: Wt 234 lb 6.4 oz (106.3kg) GENERAL: Well developed, well nourished in no apparent distress PELVIC: external genitalia normal, normal Bartholin's glands, urethra, Toughkenamon's glands, no vulvar lesions, physiologic discharge present, normal appearing perineal body and perianal region, labia majora and right groin area red ASSESSMENT/PLAN: 1. Vulvar irritation - ICD9: 624.8, ICD10: N90.89 Will notify patient of test results. - EMMA/TRICHOMONAS NAAT - BACTERIAL VAGINOSIS NAAT - Diflucan and Lotrisone ordered - If irritation continue biopsy should be performed Xenia Reynolds APRN.CNP Medical Decision Making: Problems: Low: Acute, uncomplicated illness or injury Data: Unique test(s) ordered: 2 Risk: Moderate: Drug management Medical Decision Making Level: 3 - Low [facility] [place] History of Present illness Narrative* Laura Lynch, PharmD - 09/08/2023 3:30 PM EDT Pharmacist Clinic: Diabetes Management Alina Patel is a 62 y.o. female was referred to Clinical Pharmacy Team for diabetes management. Referring Provider: Kristen Caballero DO Diabetes She presents for her follow-up diabetic visit. She has type 2 diabetes mellitus. Her disease coursehas been worsening. There are no hypoglycemic complications. There are no diabetic complications. Risk factors for coronary artery disease include diabetes mellitus, dyslipidemia, hypertension and obesity. She is compliant with treatment all of the time. Her weight is stable. When asked about meal planning, she reported none. There is no change in her home blood glucose trend. Her overall blood glucose range is >200 mg/dl. Since last visit, transitioned from Victoza to Trulicity due to product supply issue. Reports constipation and diarrhea at baseline, no significant change, scheduled to see GI. No nausea or vomiting.No change in appetite. Site of administration: abdomen , no issues with injection. Fasting blood sugar remains in 200's. Due for next dose on Thursday LAB REVIEW Lab Results Component Value Date CREATININE 0.57 09/04/2023 Lab Results Component Value Date HGBA1C 9.5 (H) 09/04/2023 HGBA1C 9.3 (H) 05/08/2023 HGBA1C 7.9 (A) 09/22/2022 Lab Results Component Value Date TRIG 518 (H) 06/13/2022 TRIG 170 (H) 11/07/2021 TRIG 201 (H) 05/22/2021 The 10-year ASCVD risk score (Miranda WEBB, et al., 2019) is: 17.4% Values used to calculate the score: Age: 62 years Sex: Female Is Non- : No Diabetic: Yes Tobacco smoker: No Systolic Blood Pressure: 147 mmHg Is BP treated: Yes HDL Cholesterol: 39 mg/dL Total Cholesterol: 170 mg/dL DIABETES ASSESSMENT CURRENT PHARMACOTHERAPY - Metformin XR 1000mg twice daily - Glipizide XL 10mg twice daily - Trulicity 1.5mg once weekly Allergies: Codeine and Lisinopril SECONDARY PREVENTION - Statin? Yes - DEZ-I/ARB? Yes - Aspirin? Yes HISTORICAL PHARMACOTHERAPY - Pioglitazone (aches, edema) - Victoza (replaced by Trulicity) - Januvia (ineffective) SMBG MEASUREMENTS Patient is using: glucometer The patient is currently checking the blood glucose 1 times per day. AVG 200s Patient does not report symptoms of hypoglycemia. Patient does not report symptoms of hyperglycemia. AFFORDABILITY/ADHERENCE - No cost or adherence barriers Assessment/Plan Problem List Items Addressed This Visit Diabetes (Multi) - Primary Relevant Medications dulaglutide 3 mg/0.5 mL pen injector (Start on 09/13/2023) Other Relevant Orders Follow Up In Clinical Pharmacy Patients diabetes is poorly controlled with most recent A1c of 9.5% (Goal < 7%). Increase Trulicity to 3mg subcutaneous once weekly Continue Metformin XR 1000mg twice daily, Glipizide XL 10mg twice daily Recommend lipid panel Adherence at present is estimated to be good. Efforts to improve adherence (if necessary) will be directed at dietary modifications: reduce carbohydrate intake, aim for 60 grams protein daily . Education Provided to Patient: - Counseled patient on Trulicity MOA, expectations, side effects, duration of therapy, administration, and monitoring parameters. - Provided detailed dosing and administration counseling to ensure proper technique. - Reviewed Trulicity titration schedule, starting with 0.75 mg once weekly to 1.5 mg, 3 mg, and if tolerated 4.5 mg. - Counseled patient on the benefits of GLP-1ra, such as cardiovascular risk reduction, glycemic control, and weight loss potential. - Reviewed storage requirements of Trulicity when not in use, and when to administer the medicationif a dose is missed. - Advised patient that they may experience improved satiety after meals and portion sizes of meals may be reduced as doses of Trulicity increase. PharmD Follow-up: 10/05 PCP Follow-up: 09/10 Notify your healthcare provider if you have any of the following: -Diarrhea or vomiting for more than six hours -Blood sugar >300 mg/dL more than once -Low blood sugar (<70 mg/dL) -Questions about your medications Thank you, Xena Lynch PharmD Continue all meds under the continuation of care with the referring provider and clinical pharmacy team. Verbal consent to manage patient's drug therapy was obtained. They were informed they may decline to participate or withdraw from participation in pharmacy services at any time. documented in this [facility] Work Phone: [phone]) [phone] Evaluation + Plan note* Assessment & Plan Note - Lux Roque PharmD - 06/26/2023 9:22 AM EDTAssociated Problem(s): Diabetes (Multi) Discontinue pioglitazone due to adverse effects Discontinue Victoza and start on Trulicity 1.5 mg weekly. Will send prescription to patient's preferred home pharmacy and advised patient to call [phone] if having trouble finding medication. Follow up in 4 weeks to assess Trulicity tolerability [facility] Work Phone: 1([phone]) 128-992004-26-2024 Miscellaneous Notes* Assessment & Plan Note - Lux Roque PharmD - 06/26/2023 9:22 AM EDTAssociated Problem(s): Diabetes (Multi) Discontinue pioglitazone due to adverse effects Discontinue Victoza and start on Trulicity 1.5 mg weekly. Will send prescription to patient's preferred home pharmacy and advised patient to call [phone] if having trouble finding medication. Follow up in 4 weeks to assess Trulicity tolerability documented [facility] [place] [facility]: 1([phone]) [phone] History of Present illness Narrative* Lux Roque PharmD - 06/26/2023 9:00 AM EDT Subjective Patient ID: Alina Patel is a 62 y.o. female who presents for Diabetes. Referring Provider: Kristen Caballero DO Next PCP Visit: 08/11/23 Diabetes She presents for her follow-up diabetic visit. She has type 2 diabetes mellitus. Her disease coursehas been worsening. There are no hypoglycemic associated symptoms. Associated symptoms include polydipsia and polyuria. There are no hypoglycemic complications. Current diabetic treatment includes oral agent (dual therapy). Her breakfast blood glucose range is generally >200 mg/dl. Eye exam is current. Met with patient regarding diabetic management. Patient was started on pioglitazone 15 mg at last visit. Patient states that she has felt arthritic pain in hands and knees to the point where she was unable to open her hands. She also noticed edema in the lower legs/ankles, which is a known adverse effect of pioglitazone. She has felt very fatigued for the past few weeks since starting the medication. She recently called clinical pharmacy team to try and find Victoza as the stock is scarce ather preferred pharmacy. Patient agreeable to once weekly Trulicity. Per conversion chart, will convert patient from 1.8 mg daily Victoza to 1.5 mg Trulicity weekly. Review of Systems Endocrine: Positive for polydipsia and polyuria. Medication System Management: Affordability/Accessibility: Obtaining Victoza depending on backorder status Adherence/Organization: N/A Adverse Effects: Has history of pancreatitis but has tolerated Victoza Objective There were no vitals taken for this visit. Labs Lab Results Component Value Date BILITOT 0.8 01/13/2023 CALCIUM 9.6 05/08/2023 CO2 25 05/08/2023 CL 101 05/08/2023 CREATININE 0.50 05/08/2023 GLUCOSE 240 (H) 05/08/2023 ALKPHOS 78 01/13/2023 K 4.2 05/08/2023 PROT 7.1 01/13/2023 NA 137 05/08/2023 AST 21 01/13/2023 ALT 22 01/13/2023 BUN 25 (H) 05/08/2023 ANIONGAP 15 05/08/2023 MG 1.54 (L) 06/16/2022 ALBUMIN 4.4 01/13/2023 LIPASE 22 01/13/2023 GFRF >90 07/01/2022 Lab Results Component Value Date TRIG 518 (H) 06/13/2022 CHOL 170 06/13/2022 HDL 39.0 (A) 06/13/2022 Lab Results Component Value Date HGBA1C 9.3 (H) 05/08/2023 Current Outpatient Medications on File Prior to Visit Medication Sig Dispense Refill amLODIPine (Norvasc) 5 mg tablet Take 1 tablet (5 mg) by mouth 2 times a day. 180 tablet 1 aspirin 81 mg EC tablet Take 1 tablet (81 mg) by mouth once daily. 90 tablet 1 calcium carbonate (Oscal) 500 mg calcium (1,250 mg) tablet Take by mouth. calcium carbonate-vitamin D3 600 mg-5 mcg (200 unit) tablet Take by mouth. calcium citrate-vitamin D3 200 mg-6.25 mcg (250 unit) tablet Take by mouth. cranberry extract 200 mg capsule Take by mouth. diclofenac sodium (Voltaren) 1 % gel Apply 4.5 inches (4 g) topically 4 times a day as needed (pain). 100 g 1 docusate sodium (Colace) 100 mg tablet Take 1 tablet (100 mg) by mouth once daily. glipiZIDE XL (Glucotrol XL) 10 mg 24 hr tablet Take 1 tablet (10 mg) by mouth 2 times a day. 180 tablet 1 ibuprofen 200 mg tablet Take 1 tablet (200 mg) by mouth every 6 hours. lansoprazole (Prevacid) [address] capsule Take 1 capsule (30 mg) by mouth once daily. Do not crush or chew. 30 capsule 5 liraglutide (Victoza 3-Moncho) 0.6 mg/0.1 mL (18 mg/3 mL) injection INJECT 1.8 MG UNDER THE SKIN ONCE A DAY 9 mL 0 LORazepam (Ativan) 0.5 mg tablet Take by mouth. losartan (Cozaar) 100 mg tablet Take 1 tablet (100 mg) by mouth once daily. 90 tablet 1 magnesium oxide-Mg AA chelate (Magnesium, oxide/AA chelate,) 300 mg capsule Take 1 capsule (300 mg)by mouth once daily. meloxicam (Mobic) 15 mg tablet Take by mouth once daily. metFORMIN XR 500 mg 24 hr tablet Take 2 tablets (1,000 mg) by mouth 2 times a day. Do not crush, chew, or split. 360 tablet 1 naproxen (Naprosyn) 500 mg tablet Take by mouth every 12 hours. pen needle, diabetic (BD Ultra-Fine Short Pen Needle) 31 gauge x 5/16 needle USE DIRECTED 100 each 11 pioglitazone (Actos) 15 mg tablet Take 1 tablet (15 mg) by mouth once daily. 30 tablet 1 pravastatin (Pravachol) 20 mg tablet Take 2 tablets by mouth daily (having problems swallowing the larger tablet) 180 tablet 1 psyllium (Metamucil) 0.4 gram capsule Take by mouth. No current facility-administered medications on file prior to visit. Assessment/Plan Problem List Items Addressed This Visit Diabetes (Multi) - Primary Discontinue pioglitazone due to adverse effects Discontinue Victoza and start on Trulicity 1.5 mg weekly. Will send prescription to patient's preferred home pharmacy and advised patient to call [phone] if having trouble finding medication. Follow up in 4 weeks to assess Trulicity tolerability Lux Roque PharmD PGY1 Chief Building Inspector Continue all meds under the continuation of care with the referring provider and clinical pharmacy team. [facility] [place] [facility]: [phone] Evaluation + Plan note* Assessment & Plan Note - Lux Roque PharmD - 05/29/2023 9:26 AM EDTAssociated Problem(s): Diabetes ([facility]) Patient's diabetes is currently uncontrolled with a most recent A1c of 9.3%. Her regimen includes metformin, glipizide, and Victoza. Ozempic and Mounjaro require PA and Trulicity unlikely to provide significant benefit over Victoza outside of once-weekly dosing. Patient has history of recurrent yeast infections so avoid SGLT2s. Start pioglitazone 15 mg daily. Follow in 4 weeks and consider increasing to 30 mg. Record log of sugars for next visit including at least fasting BG and if possible, 2 hour post-mealreadings. [facility] Work Phone: [phone] Miscellaneous Notes* Assessment & Plan Note - Lux Roque PharmD - 05/29/2023 9:26 AM EDTAssociated Problem(s): Diabetes ([facility]) Patient's diabetes is currently uncontrolled with a most recent A1c of 9.3%. Her regimen includes metformin, glipizide, and Victoza. Ozempic and Mounjaro require PA and Trulicity unlikely to provide significant benefit over Victoza outside of once-weekly dosing. Patient has history of recurrent yeast infections so avoid SGLT2s. Start pioglitazone 15 mg daily. Follow in 4 weeks and consider increasing to 30 mg. Record log of sugars for next visit including at least fasting BG and if possible, 2 hour post-mealreadings. [facility] [place] [facility]: [phone] History of Present illness Narrative* Lux Roque PharmD - 05/29/2023 9:00 AM EDT Subjective Patient ID: Alina Patel is a 62 y.o. female who presents for Diabetes. Referring Provider: Kristen Caballero DO Next PCP Visit: 08/11/23 Diabetes She presents for her initial diabetic visit. She has type 2 diabetes mellitus. Her disease course has been worsening. There are no hypoglycemic associated symptoms. Associated symptoms include polydipsia and polyuria. There are no hypoglycemic complications. Current diabetic treatment includes oralagent (dual therapy). Her breakfast blood glucose range is generally >200 mg/dl. Eye exam is current. Met with patient regarding diabetic management. Patient was referred to clinical pharmacy for increase in A1c. Patient states it was likely related to lack of diet control around the holidays. Her morning blood sugars typically runs in the 200s, which she says is the case even when her A1c was morecontrolled. Patient's current diabetic therapy is Victoza 1.8 mg daily, metformin XR 2000 mg daily,and glipizide XL10 mg BID. Discussed available options for patient including switching GLP-1s to once-weekly option (Ozempic, Mounjaro, Trulicity), TZDs like pioglitazone, and SGLT2s like Jardiance. Counseled on pioglitazone including side effects, dosing, and potential for hypoglycemia with glipizide. Review of Systems Endocrine: Positive for polydipsia and polyuria. Medication System Management: Affordability/Accessibility: Obtaining Victoza depending on backorder status Adherence/Organization: N/A Adverse Effects: Has history of pancreatitis but has tolerated Victoza Objective There were no vitals taken for this visit. Labs Lab Results Component Value Date BILITOT 0.8 01/13/2023 CALCIUM 9.6 05/08/2023 CO2 25 05/08/2023 CL 101 05/08/2023 CREATININE 0.50 05/08/2023 GLUCOSE 240 (H) 05/08/2023 ALKPHOS 78 01/13/2023 K 4.2 05/08/2023 PROT 7.1 01/13/2023 NA 137 05/08/2023 AST 21 01/13/2023 ALT 22 01/13/2023 BUN 25 (H) 05/08/2023 ANIONGAP 15 05/08/2023 MG 1.54 (L) 06/16/2022 ALBUMIN 4.4 01/13/2023 LIPASE 22 01/13/2023 GFRF >90 07/01/2022 Lab Results Component Value Date TRIG 518 (H) 06/13/2022 CHOL 170 06/13/2022 HDL 39.0 (A) 06/13/2022 Lab Results Component Value Date HGBA1C 9.3 (H) 05/08/2023 Current Outpatient Medications on File Prior to Visit Medication Sig Dispense Refill amLODIPine (Norvasc) 5 mg tablet Take 1 tablet (5 mg) by mouth 2 times a day. 180 tablet 1 aspirin 81 mg EC tablet Take 1 tablet (81 mg) by mouth once daily. 90 tablet 1 calcium carbonate (Oscal) 500 mg calcium (1,250 mg) tablet Take by mouth. calcium carbonate-vitamin D3 600 mg-5 mcg (200 unit) tablet Take by mouth. calcium citrate-vitamin D3 200 mg-6.25 mcg (250 unit) tablet Take by mouth. cranberry extract 200 mg capsule Take by mouth. diclofenac sodium (Voltaren) 1 % gel Apply 4.5 inches (4 g) topically 4 times a day as needed (pain). 100 g 1 docusate sodium (Colace) 100 mg tablet Take 1 tablet (100 mg) by mouth once daily. glipiZIDE XL (Glucotrol XL) 10 mg 24 hr tablet Take 1 tablet (10 mg) by mouth 2 times a day. 180 tablet 1 ibuprofen 200 mg tablet Take 1 tablet (200 mg) by mouth every 6 hours. lansoprazole (Prevacid) [address] capsule Take 1 capsule (30 mg) by mouth once daily. Do not crush or chew. 30 capsule 5 liraglutide (Victoza 3-Moncho) 0.6 mg/0.1 mL (18 mg/3 mL) injection INJECT 1.8 MG UNDER THE SKIN ONCE A DAY 9 mL 3 LORazepam (Ativan) 0.5 mg tablet Take by mouth. losartan (Cozaar) 100 mg tablet Take 1 tablet (100 mg) by mouth once daily. 90 tablet 1 magnesium oxide-Mg AA chelate (Magnesium, oxide/AA chelate,) 300 mg capsule Take 1 capsule (300 mg)by mouth once daily. meloxicam (Mobic) 15 mg tablet Take by mouth once daily. metFORMIN XR 500 mg 24 hr tablet Take 2 tablets (1,000 mg) by mouth 2 times a day. Do not crush, chew, or split. 360 tablet 1 naproxen (Naprosyn) 500 mg tablet Take by mouth every 12 hours. nitrofurantoin, macrocrystal-monohydrate, (Macrobid) 100 mg capsule Take 1 capsule (100 mg) by mouth 2 times a day for 7 days. 14 capsule 0 pen needle, diabetic (BD Ultra-Fine Short Pen Needle) 31 gauge x 5/16 needle USE DIRECTED 100 each 11 pravastatin (Pravachol) 20 mg tablet Take 2 tablets by mouth daily (having problems swallowing the larger tablet) 180 tablet 1 psyllium (Metamucil) 0.4 gram capsule Take by mouth. [DISCONTINUED] esomeprazole (NexIUM) [address] capsule Take 1 capsule (20 mg) by mouth once daily. 90 capsule 1 [DISCONTINUED] esomeprazole (NexIUM) [address] capsule Take 1 capsule (20 mg) by mouth once daily. 90 capsule 1 No current facility-administered medications on file prior to visit. Assessment/Plan Problem List Items Addressed This Visit Diabetes ([facility]) Patient's diabetes is currently uncontrolled with a most recent A1c of 9.3%. Her regimen includes metformin, glipizide, and Victoza. Ozempic and Mounjaro require PA and Trulicity unlikely to provide significant benefit over Victoza outside of once-weekly dosing. Patient has history of recurrent yeast infections so avoid SGLT2s. Start pioglitazone 15 mg daily. Follow in 4 weeks and consider increasing to 30 mg. Record log of sugars for next visit including at least fasting BG and if possible, 2 hour post-mealreadings. Lux Roque, Eh PGY1 Chief Building Inspector Continue all meds under the continuation of care with the referring provider and clinical pharmacy team. documented in this [facility] Work Phone: [phone] 372-106303-27-2024 History of Present illness Narrative* Octavio Sadler APRN-OPERATING TABLE ASSEMBLER - 05/27/2023 9:05 AM EDT 62 y.o. female female presents for evaluation of dysuria. Patient reports several days of increasedurinary frequency, mild suprapubic discomfort, foul odor to urine and change in urine color. Patient denies fever, nausea, vomiting, vaginal discharge/lesions, flank pains or other constitutional signs and symptoms. Patient reports similar episodes in the past diagnosed as urinary tract infections.Last UTI Sep 2022. No other complaints. Vitals: 05/27/23 0913 BP: 147/78 Pulse: 84 Resp: 14 Temp: 36.7 C (98.1 F) SpO2: 97% Allergies Allergen Reactions Codeine Nausea/vomiting Lisinopril Unknown Cardiac cough Medication Documentation Review Audit Reviewed by Camilla Romo MA (Professor Of Literature) on 05/27/23 at 0913 Medication Order Taking? Sig Documenting Provider Last Dose Status amLODIPine (Norvasc) 5 mg tablet [id number] Yes Take 1 tablet (5 mg) by mouth 2 times a day. Kristen Caballero, DO Taking Active aspirin 81 mg EC tablet [id number] Yes Take 1 tablet (81 mg) by mouth once daily. Kristen Caballero, DO Taking Active calcium carbonate (Oscal) 500 mg calcium (1,250 mg) tablet [id number] Yes Take by mouth. Historical MD Toñito Taking Active calcium carbonate-vitamin D3 600 mg-5 mcg (200 unit) tablet [id number] Yes Take by mouth. MD Carlton Taking Active calcium citrate-vitamin D3 200 mg-6.25 mcg (250 unit) tablet [id number] Yes Take by mouth. MD Carlton Taking Active cranberry extract 200 mg capsule [id number] Yes Take by mouth. Historical ProviderMD Taking Active diclofenac sodium (Voltaren) 1 % gel [id number] Yes Apply 4.5 inches (4 g) topically 4 times a day as needed (pain). Bebe Cee, EFFICIENCY EXPERT-OPERATING TABLE ASSEMBLER Taking Active docusate sodium (Colace) 100 mg tablet [id number] Yes Take 1 tablet (100 mg) by mouth once daily. Randolph ProviderMD Taking Active Discontinued 05/25/23 1236 esomeprazole (NexIUM) [address] capsule [id number] Yes Take 1 capsule (20 mg) by mouth once daily. Kristen Caballero DO Taking Active glipiZIDE XL (Glucotrol XL) 10 mg 24 hr tablet [id number] Yes Take 1 tablet (10 mg) by mouth 2 timesa day. Kristen Caballero, DO Taking Active ibuprofen 200 mg tablet [id number] Yes Take 1 tablet (200 mg) by mouth every 6 hours. Historical ProviderMD Taking Active liraglutide (Victoza 3-Moncho) 0.6 mg/0.1 mL (18 mg/3 mL) injection [id number] Yes INJECT 1.8 MG UNDER THE SKIN ONCE A DAY Kristen Caballero, DO Taking Active LORazepam (Ativan) 0.5 mg tablet [id number] Yes Take by mouth. Historical ProviderMD Taking Active losartan (Cozaar) 100 mg tablet [id number] Yes Take 1 tablet (100 mg) by mouth once daily. Kristen Caballero, DO Taking Active magnesium oxide-Mg AA chelate (Magnesium, oxide/AA chelate,) 300 mg capsule [id number] Yes Take 1 capsule (300 mg) by mouth once daily. Historical ProviderMD Taking Active meloxicam (Mobic) 15 mg tablet [id number] Yes Take by mouth once daily. Historical ProviderMD Taking Active metFORMIN XR 500 mg 24 hr tablet [id number] Yes Take 2 tablets (1,000 mg) by mouth 2 times a day. Donot crush, chew, or split. Kristen Caballero, DO Taking Active naproxen (Naprosyn) 500 mg tablet [id number] Yes Take by mouth every 12 hours. Historical ProviderMD Taking Active pen needle, diabetic (BD Ultra-Fine Short Pen Needle) 31 gauge x 5/16 needle [id number] Yes USE DIRECTED Kristen Caballero DO Taking Active pravastatin (Pravachol) 20 mg tablet [id number] Yes Take 2 tablets by mouth daily (having problems swallowing the larger tablet) Kristen Caballero, DO Taking Active psyllium (Metamucil) 0.4 gram capsule [id number] Yes Take by mouth. Historical ProviderMD Taking Active Past Medical History: Diagnosis Date Dermatophytosis of foot 01/16/2010 Hypomagnesemia 01/27/2023 Other pneumothorax 01/13/2023 Personal history of other diseases of the circulatory system History of hypertension Personal history of other endocrine, nutritional and metabolic disease History of diabetes mellitus Personal history of other endocrine, nutritional and metabolic disease History of hyperlipidemia Past Surgical History: Procedure Laterality Date OTHER SURGICAL HISTORY 10/04/2019 section OTHER SURGICAL HISTORY 10/04/2019 Cholecystectomy OTHER SURGICAL HISTORY 11/02/2020 Complete colonoscopy OTHER SURGICAL HISTORY 04/24/2020 Knee arthroscopy ROS See HPI Physical Exam Vitals and nursing note reviewed. Constitutional: General: She is not in acute distress. Appearance: Normal appearance. She is not ill-appearing, toxic-appearing or diaphoretic. Abdominal: Tenderness: There is abdominal tenderness in the suprapubic area. There is no right CVA tenderness,left CVA tenderness or guarding. Neurological: Mental Status: She is alert. Recent Results (from the past 1 hour(s)) POCT UA (nonautomated w/o microscopy) manually resulted Collection Time: 05/27/23 9:31 AM Result Value Ref Range POC Color, Urine Yellow Straw, Yellow, Light-Yellow POC Appearance, Urine Cloudy (A) Clear POC Glucose, Urine NEGATIVE NEGATIVE mg/dl POC Bilirubin, Urine NEGATIVE NEGATIVE POC Ketones, Urine NEGATIVE NEGATIVE mg/dl POC Specific Bessie, Urine >=1.030 1.005 - 1.035 POC Blood, Urine TRACE-Intact (A) NEGATIVE POC PH, Urine 5.5 No Reference Range Established PH POC Protein, Urine NEGATIVE NEGATIVE, 30 (1+) mg/dl POC Urobilinogen, Urine 0.2 0.2, 1.0 EU/DL Poc Nitrite, Urine NEGATIVE NEGATIVE POC Leukocytes, Urine SMALL (1+) (A) NEGATIVE Assessment/Plan/MDM Alina was seen today for pelvic pressure. Diagnoses and all orders for this visit: Acute cystitis with hematuria (Primary) - nitrofurantoin, macrocrystal-monohydrate, (Macrobid) 100 mg capsule; Take 1 capsule (100 mg) by mouth 2 times a day for 7 days. Encouraged patient increase water intake, avoid caffeine/energy drinks, void after intercourse, wipe front to back after voiding and bowel movements, avoid baths/hot tubs/pools, avoid tight fitting garments, empty bladder frequently. Patient's clinical presentation is otherwise unremarkable at thistime. Patient is discharged with instructions to follow-up with primary care or seek emergency medical attention for worsening symptoms or any new concerns. I did personally review Alina's past medical history, surgical history, social history, as well as family history (when relevant). In this case, I also oversaw the her drug management by reviewing hermedication list, allergy list, as well as the medications that I prescribed during the UC course and/or recommended as an out-patient (including possible OTC medications such as acetaminophen, NSAIDs , etc). After reviewing the items above, I did look at previous medical documentation, such as recent hospitalizations, office visits, and/or recent consultations with PCP/specialist. SDOH: Another factor that I considered in Alina's care was her Social Determinants of Health (SDOH).During this UC encounter, she did not have social determinants of health. Those SDOH influencing Alina's care are: none Octavio Sadler CNP [facility] [phone] documented [facility] [facility] Phone: [phone] Evaluation + Plan note* Assessment & Plan Note - Kristen Caballero DO - 05/12/2023 9:13 AM EDTAssociated Problem(s): Diabetes (CMS/HCC) -Unfortunately her hemoglobin A1c went above 9 and I am going to asked that the clinical pharmacistassist us on changing medications and providing a regimen that is affordable through her insurance plan -She is reminded to watch her diet more closely and she will contact me if sugars are running higher than desirable range -We invite her to return for a follow-up visit in 3 months to recheck her hemoglobin A1c [facility] Work Phone: [phone]) [phone] Miscellaneous Notes* Assessment & Plan Note - Kristen Caballero DO - 05/12/2023 9:13 AM EDTAssociated Problem(s): Diabetes (CMS/HCC) -Unfortunately her hemoglobin A1c went above 9 and I am going to asked that the clinical pharmacistassist us on changing medications and providing a regimen that is affordable through her insurance plan -She is reminded to watch her diet more closely and she will contact me if sugars are running higher than desirable range -We invite her to return for a follow-up visit in 3 months to recheck her hemoglobin A1c * Assessment & Plan Note - Kristen Caballero DO - 05/12/2023 9:12 AM EDT Associated Problem(s): Hyperlipidemia LDL goal <100 -We are checking her lipid profile once a year * Assessment & Plan Note - Kristen Caballero DO - 05/12/2023 9:12 AM EDT Associated Problem(s): HTN (hypertension) -Currently adequately controlled and we will continue with her current antihypertensive regimen. Wearluigi reminded that we have to give her amlodipine 5 mg 2 a day because of her pill dysphagia documented in this [facility] [place] [facility] Phone: [phone] Evaluation + Plan note* Assessment & Plan Note - Kristen Caballero DO - 05/12/2023 9:12 AM EDTAssociated Problem(s): Hyperlipidemia LDL goal <100 -We are checking her lipid profile once a year [facility] Work Phone: [phone] Evaluation + Plan note* Assessment & Plan Note - Kristen Caballero DO - 05/12/2023 9:12 AM EDTAssociated Problem(s): HTN (hypertension) -Currently adequately controlled and we will continue with her current antihypertensive regimen. Gareth reminded that we have to give her amlodipine 5 mg 2 a day because of her pill dysphagia [facility] Work Phone: [phone] History of Present illness Narrative* Kristen Caballero, DO - 05/12/2023 8:40 AM EDT Subjective Patient ID: Alina Patel is a 62 y.o. female who presents for Follow-up. HPI She is here today for her routine 6-month checkup. She explains that over the holidays her sugars were running rather high but she attributed it to her diet and she states that more recently she feels like her sugars have improved. Unfortunately her hemoglobin A1c came back very high at above 9. I did explain that in the future if her sugars are running higher than desirable to just go ahead and give me a call so that we can get ahead of the high sugars and maintain better control overall. We also discussed the fact that she is on multiple medications and I think she would benefit from seeingour clinical pharmacist. I explained that they have the advantage of knowing which medications would be covered under her plan and they might be able to help tweak her medications a little bit. Of course we also remind her to try to watch her diet more closely. I told her I would like to see her back in a few months to recheck her hemoglobin A1c. We did conduct a review of systems and we are provi ding refills on all of her medications. We also reviewed her most recent lab test results. She states she did see her airplane dispatch clerk recently because of recurrent yeast infections and she clearly understands the association with high glucose levels and increased incidence of yeast infections. We willfollow along closely and I will summarize everything in a problem based format. Review of Systems Constitutional: Negative for fatigue. Respiratory: Negative for cough, shortness of breath and wheezing. Cardiovascular: Negative for chest pain, palpitations and leg swelling. Gastrointestinal: Negative for abdominal pain, blood in stool, diarrhea, nausea and vomiting. Musculoskeletal: Negative for arthralgias and back pain. Objective Physical Exam Vitals and nursing note reviewed. Constitutional: General: She is not in acute distress. Appearance: Normal appearance. HENT: Head: Normocephalic and atraumatic. Eyes: Conjunctiva/sclera: Conjunctivae normal. Cardiovascular: Rate and Rhythm: Normal rate and regular rhythm. Heart sounds: Normal heart sounds. Pulmonary: Effort: No respiratory distress. Breath sounds: No wheezing. Abdominal: Palpations: Abdomen is soft. Tenderness: There is no abdominal tenderness. There is no guarding. Musculoskeletal: General: No swelling. Normal range of motion. Skin: General: Skin is warm and dry. Neurological: General: No focal deficit present. Mental Status: She is alert and oriented to person, place, and time. Psychiatric: Behavior: Behavior normal. Recent Results (from the past 672 hour(s)) Basic Metabolic Panel Collection Time: 05/08/23 8:22 AM Result Value Ref Range Glucose 240 (H) 74 - 99 mg/dL Sodium 137 136 - 145 mmol/L Potassium 4.2 3.5 - 5.3 mmol/L Chloride 101 98 - 107 mmol/L Bicarbonate 25 21 - 32 mmol/L Anion Gap 15 10 - 20 mmol/L Urea Nitrogen 25 (H) 6 - 23 mg/dL Creatinine 0.50 0.50 - 1.05 mg/dL eGFR >90 >60 mL/min/1.73m*2 Calcium 9.6 8.6 - 10.3 mg/dL Hemoglobin A1C Collection Time: 05/08/23 8:22 AM Result Value Ref Range Hemoglobin A1C 9.3 (H) see below % Estimated Average Glucose 220 Not Established mg/dL Assessment/Plan Problem List Items Addressed This Visit ICD-10-CM Diabetes (CMS/[facility]) E11.9 -Unfortunately her hemoglobin A1c went above 9 and I am going to asked that the clinical pharmacistassist us on changing medications and providing a regimen that is affordable through her insurance plan -She is reminded to watch her diet more closely and she will contact me if sugars are running higher than desirable range -We invite her to return for a follow-up visit in 3 months to recheck her hemoglobin A1c Relevant Medications glipiZIDE XL (Glucotrol XL) 10 mg 24 hr tablet metFORMIN XR 500 mg 24 hr tablet liraglutide (Victoza 3-Moncho) 0.6 mg/0.1 mL (18 mg/3 mL) injection Other Relevant Orders Hemoglobin A1C Basic Metabolic Panel Referral to Clinical Pharmacy HTN (hypertension) I10 -Currently adequately controlled and we will continue with her current antihypertensive regimen. Jovie reminded that we have to give her amlodipine 5 mg 2 a day because of her pill dysphagia Relevant Medications amLODIPine (Norvasc) 5 mg tablet losartan (Cozaar) 100 mg tablet Hyperlipidemia LDL goal <100 E78.5 -We are checking her lipid profile once a year Relevant Medications pravastatin (Pravachol) 20 mg tablet Pill dysphagia R13.10 Encounter for screening mammogram for malignant neoplasm of breast - Primary Z12.31 Relevant Orders BI mammo bilateral screening tomosynthesis Kristen Caballero DO [facility] Work Phone: [phone]) [phone] Instructions* Patient Instructions* Kristen Caballero DO - 05/12/2023 8:40 AM EDT As we discussed I have sent refills for all of your medications and the staff will be getting a hold of you about getting an appointment with the clinical pharmacist. The clinical pharmacist specializes in diabetic medications and they are able to assist in medication selection based on your insurance plan and coverage. I do feel we need to make some changes with your medicines and currently the medicines you take are maxed out . Please keep checking your sugars regularly and at the very least we want you to check each morning before your breakfast and the second time before your supper. The pharmacist will want to hear back from you regarding your progress and I would also like to hear back from you as well. Please call if sugars or not improving overall at the very least we will see you back in 3 months for another hemoglobin A1c and blood test The staff will also be helping you to schedule your screening mammogram and they will print an order form for you to take to take with you I also sent refills for all your medications and please let me know if there are any issues with the pharmacy documented in this [facility] [place] Work Phone: [phone]) 674-749103-04-2024 Evaluation + Plan note* Assessment & Plan Note - Bebe Cee APRN-YSABEL - 05/04/2023 8:06 PM ESTAssociated Problem(s): Sprain of left knee, initial encounter We reviewed conservative measures for knee sprain symptom control. Patient to continue to take OTC Ibuprofen prn with food, Tylenol per package directions, diclofenac gel up to 4 times daily. We reviewed bracing with weightbearing activities, avoid bracing that causes increased swelling around the brace. We discussed potential cortisone injection and or formal PT, patient reports difficulty following diet and has not had A1c checked since August last year. Patient states her sugars do typically run over 200 currently. This time, I am recommending the viscosupplementation for symptom control which patient is in agreement with plan, plan will be to follow-up here once the gel is approved. This note was generated using Val[employer] software. It may contain errors in wording, punctuation or spelling. [facility] Work Phone: [phone] 640-944003-04-2024 Miscellaneous Notes* Assessment & Plan Note - MADDY Stevens - 05/04/2023 8:06 PM ESTAssociated Problem(s): Sprain of left knee, initial encounter We reviewed conservative measures for knee sprain symptom control. Patient to continue to take OTC Ibuprofen prn with food, Tylenol per package directions, diclofenac gel up to 4 times daily. We reviewed bracing with weightbearing activities, avoid bracing that causes increased swelling around the brace. We discussed potential cortisone injection and or formal PT, patient reports difficulty following diet and has not had A1c checked since August last year. Patient states her sugars do typically run over 200 currently. This time, I am recommending the viscosupplementation for symptom control which patient is in agreement with plan, plan will be to follow-up here once the gel is approved. This note was generated using Valm[employer] software. It may contain errors in wording, punctuation or spelling. documented in this encounterSelect [facility] [place] Work Phone: [phone]) 288-371102-21-2024 History of Present illness Narrative* MADDY Stevens - 04/22/2023 8:15 AM EST Subjective Patient ID: Alina Patel is a 62 y.o. female. Chief Complaint: Pain of the Left Knee (Pt had xray completed on 03/27/2023) Last Surgery: Left knee arthroscopy with medial meniscectomy Mar 2020 Left Knee Alina is a pleasant 62-year-old female presenting as a new patient to me today for evaluation of L knee pain. This occured after being on a step behind her mother who was trying to ascend stairs afterjoint replacement surgery, catching mom from falling back off next step. Some improvement since last visit Mostly medial , down steps remains problematic Feels unstable, no locking or give way Feels like somehting is moving inside Wore brace but would slide down, purchased OTC brace with increased swelling No new injuries Ibu prn Tyl Hx medial meniscectomy 3+ yrs ago Review of Systems Constitutional: Negative. HENT: Negative. Respiratory: Negative. Cardiovascular: Negative. Endocrine: Negative. Musculoskeletal: Positive for arthralgias. Skin: Negative. Neurological: Negative. Hematological: Negative. Psychiatric/Behavioral: Negative. Objective Left Knee Exam Tenderness The patient is experiencing tenderness in the lateral joint line and medial joint line. Range of Motion Extension: normal Flexion: 90 Tests Terri: Medial - negative Lateral - positive Varus: negative Valgus: negative Narinder: Anterior - negative Drawer: Anterior - negative Posterior - negative Other Erythema: absent Sensation: normal Pulse: present Swelling: moderate Effusion: effusion present Comments: Patient with mild to moderate swelling to the lateral region of the left knee, positive mild to moderate suprapatellar bursitis noted. No crepitus noted on exam. Symptoms are aggravated with lateral knee testing. Full ROM of distal joints with no sx aggravation, distal motor and sensory intact, cap refill at 2 seconds. Image Results: === 03/27/23 === XR KNEE LEFT 4+ VIEWS - Impression - Moderate to advanced osteoarthritic changes left knee worst medially, significantly progressed from the prior study. Signed by: Akshat Ortiz 03/31/2023 5:57 PM Dictation workstation: [id number] Lab Results Component Value Date HGBA1C 7.9 (A) 09/22/2022 Assessment/Plan Encounter Diagnoses: Problem List Items Addressed This Visit ICD-10-CM Sprain of left knee, initial encounter S83.92XA We reviewed conservative measures for knee sprain symptom control. Patient to continue to take OTC Ibuprofen prn with food, Tylenol per package directions, diclofenac gel up to 4 times daily. We reviewed bracing with weightbearing activities, avoid bracing that causes increased swelling around the brace. We discussed potential cortisone injection and or formal PT, patient reports difficulty following diet and has not had A1c checked since August last year. Patient states her sugars do typically run over 200 currently. This time, I am recommending the viscosupplementation for symptom control which patient is in agreement with plan, plan will be to follow-up here once the gel is approved. This note was generated using Valm[employer] software. It may contain errors in wording, punctuation or spelling. documented in this encounterSelect [facility] [place] Work Phone: [phone]) [phone] History of Present illness Narrative* Tyler Benjamin MD - 04/07/2023 10:30 AM EST Chief Complaint Patient presents with 6 month f/u HPI: I was requested by Dr. Caballero to evaluate this patient in consultation for cardiac assessment. Patient 62-year-old non-smoker diabetic female with extensive prior medical history significant forhypertension, diabetes, hyperlipidemia, morbid obesity, GERD, TIA, atherosclerotic plaques on carotid arteries coming today for cardiovascular assessment. Patient endorses chest pain for many years. She describes this pain as a sharp pain, starting on the left side of her chest, radiating to her left arm and is self-limited. This pain is not related to exercise or extenuation activities. However,it is associated with shortness of breath. Patient denies palpitations, lightheadedness, headaches,fever, chills, orthopnea, paroxysmal nocturnal dyspnea or syncope. Of note, the patient was sent from Dr. Caballero's office to the ED are recently due to chest pain. This pain was different from the pain that she used to have before, started on the right side of the chest, lasted for around 1 hour and was self-limited. She was worked up in the ED, with no new EKG abnormalities or troponin elevation. She was discharged and oriented to search for cardiovascular assessment. Of note, the patient states that she was on Lipitor but she was feeling cough. After switching for pravastatin, the patient feels much better and is tolerating well the medication. Her EKG showing normal sinus rhythm with Q waves in V1 to V3. Her prior echo shows normal left ventricular ejection fraction of 60% and impaired relaxation of LVdiastolic filling. Her carotid artery duplex ultrasound shows bilateral atherosclerotic plaques with <50% stenosis on both sides. Her monitor showed normal sinus rhythm, from bradycardia just sinus tachycardia. The maximum heart rate was 150 and the minimum was 58 bpm's, the average heart rate was 81 bpm. There were 419 PVCs with a burden of 0.05%. There was 1 occurrence of ventricular tachycardia with the longest episode of 6 beats. There were 230 PSVC's with a burden of 0.03%. There were 6 occurrences of SVT with the longest episode of 8 beats. Patient returns today reporting the same symptoms as before, that she believes that are more related to indigestion instead of cardiovascular symptoms. Her cardiology check up tests were normal. CT calcium score of 6. Nuclear stress test negative for ischemia. Past Medical History Past Medical History: Diagnosis Date Dermatophytosis of foot 01/16/2010 Hypomagnesemia 01/27/2023 Other pneumothorax 01/13/2023 Personal history of other diseases of the circulatory system History of hypertension Personal history of other endocrine, nutritional and metabolic disease History of diabetes mellitus Personal history of other endocrine, nutritional and metabolic disease History of hyperlipidemia Past Surgical History Past Surgical History: Procedure Laterality Date OTHER SURGICAL HISTORY 10/04/2019 section OTHER SURGICAL HISTORY 10/04/2019 Cholecystectomy OTHER SURGICAL HISTORY 11/02/2020 Complete colonoscopy OTHER SURGICAL HISTORY 04/24/2020 Knee arthroscopy Past Family History Family History Problem Relation Name Age of Onset Diabetes Mother Diabetes Father Allergy History Allergies Allergen Reactions Codeine Nausea/vomiting Lisinopril Unknown Cardiac cough Past Social History Social History Socioeconomic History Marital status: Spouse name: None Number of children: None Years of education: None Highest education level: None Occupational History None Tobacco Use Smoking status: Never Smokeless tobacco: Never Substance and Sexual Activity Alcohol use: Not Currently Drug use: Not Currently Sexual activity: Yes Other Topics Concern None Social History Narrative None Social Determinants of Health Financial Resource Strain: Not on file Food Insecurity: Not on file Transportation Needs: Not on file Physical Activity: Not on file Stress: Not on file Social Connections: Not on file Intimate Partner Violence: Not on file Housing Stability: Not on file Social History Tobacco Use Smoking Status Never Smokeless Tobacco Never Review of Systems: Denies fatigue. Denies shortness of breath, coughing, wheezing Denies chest pain, palpitations, leg edema Denies nausea, vomiting, diarrhea, occ heartburn. Denies abdominal pain, or black or bloody stools Denies significant joint pain . No back pain Denies feelings of significant anxiety or depression Objective Data: Last Recorded Vitals: Vitals: 04/07/23 1027 BP: 122/70 Pulse: 85 SpO2: 97% Weight: 104 kg (228 lb 6.4 oz) Height: 1.727 m (5' 8) Last Labs: CBC - 12/16/2022: 1:19 PM 9.1 14.4 265 43.9 CMP - 12/16/2022: 1:19 PM 9.5 7.1 21 --- 0.8 _ 4.4 22 78 PTT - No results in last year. _ _ _ TROPHS Date/Time Value Ref Range Status 07/01/2022 12:16 AM 5 0 - 13 ng/L Final Comment: . Less than 99th percentile of normal range cutoff- Female and children under 18 years old <14 ng/L; Male <21 ng/L: Negative Repeat testing should be performed if clinically indicated. . Female and children under 18 years old 14-50 ng/L; Male 21-50 ng/L: Consistent with possible cardiac damage and possible increased clinical risk. Serial measurements may help to assess extent of myocardial damage. . >50 ng/L: Consistent with cardiac damage, increased clinical risk and myocardial infarction. Serial measurements may help assess extent of myocardial damage. . NOTE: Children less than 1 year old may have higher baseline troponin levels and results should be interpreted in conjunction with the overall clinical context. . NOTE: Troponin I testing is performed using a different testing methodology at [facility] than at other [facility]. Direct result comparisons should only be made within the same method. 06/16/2022 06:13 PM CANCELED Comment: . Less than 99th percentile of normal range cutoff- Female and children under 18 years old <14 ng/L; Male <21 ng/L: Negative Repeat testing should be performed if clinically indicated. . Female and children under 18 years old 14-50 ng/L; Male 21-50 ng/L: Consistent with possible cardiac damage and possible increased clinical risk. Serial measurements may help to assess extent of myocardial damage. . >50 ng/L: Consistent with cardiac damage, increased clinical risk and myocardial infarction. Serial measurements may help assess extent of myocardial damage. . NOTE: Children less than 1 year old may have higher baseline troponin levels and results should be interpreted in conjunction with the overall clinical context. . NOTE: Troponin I testing is performed using a different testing methodology at [facility] than at other [facility]. Direct result comparisons should only be made within the same method. Result canceled by the ancillary. 06/16/2022 10:12 AM 4 0 - 13 ng/L Final Comment: . Less than 99th percentile of normal range cutoff- Female and children under 18 years old <14 ng/L; Male <21 ng/L: Negative Repeat testing should be performed if clinically indicated. . Female and children under 18 years old 14-50 ng/L; Male 21-50 ng/L: Consistent with possible cardiac damage and possible increased clinical risk. Serial measurements may help to assess extent of myocardial damage. . >50 ng/L: Consistent with cardiac damage, increased clinical risk and myocardial infarction. Serial measurements may help assess extent of myocardial damage. . NOTE: Children less than 1 year old may have higher baseline troponin levels and results should be interpreted in conjunction with the overall clinical context. . NOTE: Troponin I testing is performed using a different testing methodology at [facility] than at other [facility]. Direct result comparisons should only be made within the same method. HGBA1C Date/Time Value Ref Range Status 09/22/2022 09:14 AM 7.9 % Final Comment: Diagnosis of Diabetes-Adults Non-Diabetic: < or = 5.6% Increased risk for developing diabetes: 5.7-6.4% Diagnostic of diabetes: > or = 6.5% . Monitoring of Diabetes Age (y) Therapeutic Goal (%) Adults: >18 <7.0 Pediatrics: 13-18 <7.5 7-12 <8.0 0- 6 7.5-8.5 [place] [employer]. Diabetes Care 33(S1), Mar 2009. 06/13/2022 08:30 AM 11.2 % Final Comment: Diagnosis of Diabetes-Adults Non-Diabetic: < or = 5.6% Increased risk for developing diabetes: 5.7-6.4% Diagnostic of diabetes: > or = 6.5% . Monitoring of Diabetes Age (y) Therapeutic Goal (%) Adults: >18 <7.0 Pediatrics: 13-18 <7.5 7-12 <8.0 0- 6 7.5-8.5 [place]. Diabetes Care 33(S1), Mar 2009. 09/26/2020 10:43 AM 8.5 4.0 - 5.6 % Final VLDL Date/Time Value Ref Range Status 06/13/2022 08:30 AM SEE COMMENT 0 - 40 mg/dL Final Comment: Unable to calculate VLDL. 11/07/2021 10:30 AM 34 0 - 40 mg/dL Final 05/22/2021 09:03 AM 40 0 - 40 mg/dL Final Patient Medications: Outpatient Encounter Medications as of 04/07/2023 Medication Sig Dispense Refill amLODIPine (Norvasc) 5 mg tablet Take 1 tablet (5 mg) by mouth 2 times a day. 180 tablet 1 aspirin 81 mg EC tablet Take 1 tablet (81 mg) by mouth once daily. 90 tablet 1 calcium carbonate (Oscal) 500 mg calcium (1,250 mg) tablet Take by mouth. cranberry extract 200 mg capsule Take by mouth. diclofenac sodium (Voltaren) 1 % gel Apply 4.5 inches (4 g) topically 4 times a day as needed (pain). 100 g 1 docusate sodium (Colace) 100 mg tablet Take 1 tablet (100 mg) by mouth once daily. esomeprazole (NexIUM) [address] capsule Take 1 capsule (20 mg) by mouth once daily. 90 capsule 1 glipiZIDE XL (Glucotrol XL) 10 mg 24 hr tablet Take 1 tablet (10 mg) by mouth 2 times a day. 180 tablet 1 ibuprofen 200 mg tablet Take 1 tablet (200 mg) by mouth every 6 hours. losartan (Cozaar) 100 mg tablet Take 1 tablet (100 mg) by mouth once daily. 90 tablet 1 magnesium oxide-Mg AA chelate (Magnesium, oxide/AA chelate,) 300 mg capsule Take 1 capsule (300 mg)by mouth once daily. metFORMIN XR 500 mg 24 hr tablet Take 2 tablets (1,000 mg) by mouth 2 times a day. Do not crush, chew, or split. 360 tablet 1 pen needle, diabetic (BD Ultra-Fine Short Pen Needle) 31 gauge x 5/16 needle USE DIRECTED 100 each 11 pravastatin (Pravachol) 20 mg tablet Take 2 tablets by mouth daily (having problems swallowing the larger tablet) 60 tablet 5 psyllium (Metamucil) 0.4 gram capsule Take by mouth. Victoza 2-Moncho 0.6 mg/0.1 mL (18 mg/3 mL) injection INJECT 0.3 ML'S ( 1.8 MG.) SUBCUTANEOUSLY ONCE ADAY. 9 mL 0 calcium carbonate-vitamin D3 600 mg-5 mcg (200 unit) tablet Take by mouth. calcium citrate-vitamin D3 200 mg-6.25 mcg (250 unit) tablet Take by mouth. [] clotrimazole-betamethasone (Lotrisone) cream Apply 1 Application topically twice a day. ergocalciferol (Vitamin D-2) 1.25 MG (34880 UT) capsule Take 1 capsule (1,250 mcg) by mouth 1 (one)time per week. inulin 1.5 gram tablet,chewable Chew 1 tablet once daily. linaCLOtide (Linzess) 145 mcg capsule Take by mouth once daily. LORazepam (Ativan) 0.5 mg tablet Take by mouth. meloxicam (Mobic) 15 mg tablet Take by mouth once daily. naproxen (Naprosyn) 500 mg tablet Take by mouth every 12 hours. No facility-administered encounter medications on file as of 04/07/2023. Physical Exam: General: alert, oriented and in no acute distress HEENT: NC/AT; EOMI; PERRLA, external ear is normal Neck: supple; trachea midline; no masses; no JVD Chest: clear breath sounds bilaterally; no wheezing Cardio: regular rhythm, S1S2 normal, no murmurs Abdomen: Soft, non-tender, non-distension, no organomegaly Extremities: no clubbing/cyanosis/edema Neuro: Grossly intact Psychiatric: Normal mood and affect Past Cardiology Results (Last 3 Years): EKG: No results found for this or any previous visit from the past 1095 days. Echo: Echo Results: No results found for this or any previous visit from the past 365 days. Cath: No results found for this or any previous visit from the past 1095 days. CV NCDR CATHPCI V5 COLLECTION FORM Stress Test: Nuclear Stress Test 07/09/2022 Cardiac Imaging: No results found for this or any previous visit from the past 1095 days. Assessment/Plan In summary, Mrs. Patel is a 62-year-old non-smoker diabetic female with extensive prior medical history significant for hypertension, diabetes, hyperlipidemia, morbid obesity, GERD, TIA, atherosclerotic plaques on carotid arteries coming today for cardiovascular assessment. She reports chest pain for many years which is is not related to exercise or extenuation activities, but it is associated with shortness of breath. Of note, the patient was sent from Dr. Caballero's office to the ED are recently due to chest pain, and after cardiac workup, she was discharged and counseled to seek cardiovascular advise. # Atherosclerosis - Her EKG showing normal sinus rhythm with Q waves in V1 to V3. - Her prior echo shows normal left ventricular ejection fraction of 60% and impaired relaxation of LV diastolic filling. - Her carotid artery duplex ultrasound shows bilateral atherosclerotic plaques with <50% stenosis on both sides. - Her monitor showed normal sinus rhythm, from bradycardia just sinus tachycardia, average heart rate was 81 bpm, PVCs with a burden of 0.05%, 230 PSVC's with a burden of 0.03%. There were 6 occurrences of SVT with the longest episode of 8 beats. - CT calcium score low of 6. - Nuclear stress test negative for ischemia for both tracing and images, however with elevated BP upon recovery. - Keep ASA 81mg daily - Keep Pravastatin 40mg daily - We will keep medical treatment at this point. - Follow up in 1 year # HTN - Controlled BP today - Keep Amlodipine 10mg daily, Losartan 100mg daily # T2DM - A1c 10.3% / 11.2% - Keep home medication - Follow up with Dr. Caballero - will adjust the medication accordingly # Hypertriglyceridemia - Tri 518; HDL 39; LDL not measured due to high Tri - Patient is on Pravastatin 40mg daily - Following with Dr. Caballero. I would suggest to check possible association with Ciprofibrate to try to lower Tri levels. We have discussed the most common side effects of the prescribed medications, indications, drug interactions, risks, complications, and alternatives of medications/therapeutics were explained and discussed. The patient has been requested to monitor closely for any untoward side effects or complications of medications. The patient has been strongly advised to be compliant with the recommendations,all the questions and concerns have been addressed. The patient has been also instructed to call, to return sooner or to go to the emergency department if symptoms persist or get worsen. The patient voiced understanding and denies any further questions at this time. This note was transcribed using the [employer] Dictation system. There may be grammatical, punctuation,or verbiage errors that occur with voice recognition programs. Thank you, Dr. Caballero, for allowing me to participate in the care of this patient. Please reach me out if you have any questions or if you need any clarifications regarding the patient's care. This note was transcribed using the [employer] Dictation system. There may be grammatical, punctuation,or verbiage errors that occur with voice recognition programs. Counseling greater than 50% of visit regarding all cardiac issues. Thank you, Dr. Caballero, for allowing me to participate in the care of this patient. Please do not hesitate to contact me with any further questions or concerns. Tyler Benjamin MD Cardiology documented [facility] [place] Work Phone: [phone]) [phone] Evaluation + Plan note* Assessment & Plan Note - Bebe Cee APRN-OPERATING TABLE ASSEMBLER - 03/30/2023 10:33 AM ESTAssociated Problem(s): Sprain of left knee, initial encounter We reviewed conservative measures for knee sprain symptom control. Patient to continue to take OTC Ibuprofen 3 tablets 3x/daily with food, Tylenol per package directions, diclofenac gel up to 4 timesdaily. We reviewed bracing for aggravating activities, re,ove with rest and slee. Home exercises for knee sprain/LCL injury were reviewed and patient encouraged to begin in approximately 1 week and advance as tolerated. Plan will be to follow-up here in approximately 3 weeks, sooner for changes or concerns. We discussed potential cortisone injection and or formal PT if symptoms fail to improve over the next few weeks. Patient in agreement with plan of care. This note was generated using Valmarc software. It may contain errors in wording, punctuation or spelling. [facility] Work Phone: [phone] 609-451501-29-2024 Miscellaneous Notes* Assessment & Plan Note - MADDY Stevens - 03/30/2023 10:33 AM ESTAssociated Problem(s): Sprain of left knee, initial encounter We reviewed conservative measures for knee sprain symptom control. Patient to continue to take OTC Ibuprofen 3 tablets 3x/daily with food, Tylenol per package directions, diclofenac gel up to 4 timesdaily. We reviewed bracing for aggravating activities, re,ove with rest and slee. Home exercises for knee sprain/LCL injury were reviewed and patient encouraged to begin in approximately 1 week and advance as tolerated. Plan will be to follow-up here in approximately 3 weeks, sooner for changes or concerns. We discussed potential cortisone injection and or formal PT if symptoms fail to improve over the next few weeks. Patient in agreement with plan of care. This note was generated using Valmarc software. It may contain errors in wording, punctuation or spelling. [facility]: 1(871) 944-367701-29-2024 History of Present illness Narrative* MADDY Stevens - 03/30/2023 10:00 AM EST Subjective Patient ID: Alina Patel is a 62 y.o. female. Chief Complaint: Pain of the Left Knee (Patient states her pain has been going on for about 3 weeks. She had a meniscus tear repair done by Dr. Jack about 2- 3 years ago) Last Surgery: Left knee arthroscopy with medial meniscectomy Mar 2020 RICARDO Fuller is a pleasant 62-year-old female presenting as a new patient to me today for evaluation of L knee pain. This occured after being on a step behind her mother who was trying to ascend stairs afterjoint replacement surgery, catching mom from falling back off next step. DOI: 3 weeks ago Ice some short term relief Aggravated with steps, walking Ibu 800 mg 2x/day helps some No bracing or wraps attempted Feels different than medial meniscal injury Review of Systems Constitutional: Negative. HENT: Negative. Respiratory: Negative. Cardiovascular: Negative. Endocrine: Negative. Musculoskeletal: Positive for arthralgias. Skin: Negative. Neurological: Negative. Hematological: Negative. Psychiatric/Behavioral: Negative. Objective Left Knee Exam Tenderness The patient is experiencing tenderness in the lateral joint line and medial joint line. Range of Motion Extension: normal Flexion: 90 Tests Terri: Medial - negative Lateral - positive Varus: negative Valgus: negative Narinder: Anterior - negative Drawer: Anterior - negative Posterior - negative Other Erythema: absent Sensation: normal Pulse: present Swelling: moderate Effusion: effusion present Comments: Patient with moderate swelling to the lateral region of the left knee, positive mild to moderate suprapatellar bursitis noted. No crepitus noted on exam. Symptoms are aggravated with lateral knee testing. Full ROM of distal joints with no sx aggravation, distal motor and sensory intact, cap refill at 2 seconds. Image Results: Independent review of images completed today's visit. Patient does have moderate to severe medial joint degenerative changes with loss of joint spacing. There are mild to moderate degenerative changes to the lateral compartment as well. No obvious fractures or misalignment noted. Await radiology report. Assessment/Plan Encounter Diagnoses: Left knee pain, unspecified chronicity Orders Placed This Encounter XR knee left 4+ views Problem List Items Addressed This Visit ICD-10-CM Sprain of left knee, initial encounter S83.92XA We reviewed conservative measures for knee sprain symptom control. Patient to continue to take OTC Ibuprofen 3 tablets 3x/daily with food, Tylenol per package directions, diclofenac gel up to 4 timesdaily. We reviewed bracing for aggravating activities, re,ove with rest and slee. Home exercises for knee sprain/LCL injury were reviewed and patient encouraged to begin in approximately 1 week and advance as tolerated. Plan will be to follow-up here in approximately 3 weeks, sooner for changes or concerns. We discussed potential cortisone injection and or formal PT if symptoms fail to improve over the next few weeks. Patient in agreement with plan of care. This note was generated using Valmarc software. It may contain errors in wording, punctuation or spelling. Relevant Orders Follow Up In Orthopaedic Surgery Other Visit Diagnoses Codes Left knee pain, unspecified chronicity M25.562 Relevant Orders XR knee left 4+ views documented in this [facility] Work Phone: 1([phone]) [phone] NoteHNO ID: [id number] Author: XENIA REYNOLDS APRN.YSABEL Service: ? Author Type: Nurse Practitioner Type: Progress Notes Filed: 03/24/2023 15:54 Note Text: Dry Janitor offered: Patient declines. Alina Patel is a 62 year old female who presents for problem visit vulvar irritation. HPI: pt states that she has been having an ongoing issue with vulvar irritation for several months. She has been treated several times with Diflucan for yeast, which will help very short-term and then her symptoms return. She states that they did do a culture at 1 point which showed no yeast. She has also tried [id number] medications for the itching, which gave her very little relief. Patient does have diabetes and states that her blood sugar numbers are not well-controlled at this time. OB History T8 L8 SAB1 IAB0 Ectopic0 Multiple0 Live Births0 Manufacturing Chief Engineer History LMP: Postmenopausal Age at Menarche: Age at First : Age at Menopause: Manufacturing Chief Engineer History Comments: Sexual Activity: Yes; Male; Postmenopausal Contraception: None PAST MEDICAL HISTORY Diagnosis Date Benign neoplasm of colon Diabetes (HCC) Fibroadenoma of breast right removal in Hypertension PAST SURGICAL HISTORY Procedure Laterality Date COLSC FLX W/RMVL OF TUMOR POLYP LESION SNARE TQ 10/24/2009 polyp 20cm LUMPECTOMY/RADIOTHERAPY DIAG MAMM/A10 right fibroadenoma PAST SURGICAL HISTORY OF 8 c-sections; large babies PAST SURGICAL HISTORY OF gallbladder -- classic (open) PAST SURGICAL HISTORY OF hernia repair x 2 -- related, then seroma repair/hernia PAST SURGICAL HISTORY OF tonsillectomy PAST SURGICAL HISTORY OF Left meniscus repair FAMILY HISTORY Problem Relation Age of Onset Diabetes Mother Diabetes Father Coronary Artery Disease Other none Colon Cancer Other none Hypertension Mother Hypertension Father other (Narcolepsy [Other]) Father Arthritis Mother Arthritis Father Cancer Paternal Grandmother Social History Tobacco Use Smoking status: Never Passive exposure: Never Smokeless tobacco: Never Vaping Use Vaping Use: Never used Substance Use Topics Alcohol use: No Drug use: No Current Outpatient Medications Medication Sig liraglutide (VICTOZA) 0.6 mg/ 0.1 ml subcutaneous pen injector INJECT 0.3 ML'S ( 1.8 MG.) SUBCUTANEOUSLY ONCE A DAY. glipiZIDE (GLUCOTROL XL) 10mg 24 hr tablet Take 10 mg by mouth. losartan (COZAAR) 100 mg tablet Take 100 mg by mouth. metFORMIN ER (GLUCOPHAGE XR) 500 mg 24 hr tablet Take 1,000 mg by mouth. amLODIPine (NORVASC) 10 mg tablet Take 10 mg by mouth once daily. pravastatin 40 mg tablet Take 40 mg by mouth once daily. aspirin, enteric coated 81 mg EC tablet Take 81 mg by mouth once daily. IBUPROFEN 600 MG TAB Take one(1) tablet every six(6) hours as needed for pain. insulin glargine (LANTUS SOLOSTAR) 100 unit/mL (3 mL) inpn Inject 35 Units subcutaneously daily at bedtime. (Patient not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 metformin XR 500 mg 2 tablets twice daily-glipizide XL 10 mg daily -At the very least we will see her back in 3 months for reevaluation and she will get a hemoglobin A1c just prior to that visit [facility] Work Phone: [phone] Evaluation + Plan note* Assessment & Plan Note - Kristen Jamila DO Federico - 06/16/2022 8:39 AM EDTAssociated Problem(s): HTN (hypertension) -Blood pressure is currently well controlled -She will stay on amlodipine 10 mg daily [facility] Work Phone: [phone] History of Present illness Narrative* Jewell Mota MA - 06/16/2022 8:20 AM EDT Pt is here today for a 3 month check up, C/O chest feeling heavy. Review labs * Kristen Caballero DO - 06/16/2022 8:20 AM EDT Subjective Patient ID: Alina Patel is a 61 y.o. female who presents for No chief complaint on file.. HPI She is here today for a routine checkup. We were conducting a review of systems and she mentioned that over the weekend she started experiencing some chest discomfort that she describes as a tightness in the center of her chest. She is also noticed that when she walks she is feeling a little bit more winded. She states has been more or less constant. Today her vital signs are fine and she does not appear to be in acute distress but given her many risk factors for heart disease and other vascular issues I have no other choice and to have her go to the emergency room to be evaluated. We also quickly went over lab test results and unfortunately her blood sugars have been very high. We talked about putting her on something like Trulicity but unfortunately she had a history of pancreatitis would not be a candidate for this medication. Going to add Lantus and then have her give us weekly updates through [employer]. We can make adjustments. We did conduct a review of systems and we also reviewed her cholesterol profile and unfortunately her triglycerides were very high at 518. She understandsthat with lowering blood sugar her triglycerides should follow suit. We plan on seeing her back in 3 months for reevaluation but again we will be communicating about her blood sugar control via [employer] Review of Systems Constitutional: Negative for fatigue and unexpected weight change. Respiratory: Positive for chest tightness and shortness of breath. Negative for cough and wheezing. Cardiovascular: Negative for palpitations and leg swelling. Gastrointestinal: Negative for abdominal pain, blood in stool, diarrhea, nausea and vomiting. Musculoskeletal: Negative for arthralgias and back pain. Objective Physical Exam Vitals and nursing note reviewed. Constitutional: General: She is not in acute distress. Appearance: Normal appearance. HENT: Head: Normocephalic and atraumatic. Eyes: Conjunctiva/sclera: Conjunctivae normal. Cardiovascular: Rate and Rhythm: Normal rate and regular rhythm. Heart sounds: Normal heart sounds. Pulmonary: Effort: No respiratory distress. Breath sounds: No wheezing. Abdominal: Palpations: Abdomen is soft. Tenderness: There is no abdominal tenderness. There is no guarding. Musculoskeletal: General: No swelling. Normal range of motion. Skin: General: Skin is warm and dry. Neurological: General: No focal deficit present. Mental Status: She is alert and oriented to person, place, and time. Psychiatric: Behavior: Behavior normal. Recent Results (from the past 672 hour(s)) Basic Metabolic Panel Collection Time: 06/13/22 8:30 AM Result Value Ref Range Glucose 419 (H) 74 - 99 mg/dL Sodium 134 (L) 136 - 145 mmol/L Potassium 4.3 3.5 - 5.3 mmol/L Chloride 96 (L) 98 - 107 mmol/L Bicarbonate 25 21 - 32 mmol/L Anion Gap 17 10 - 20 mmol/L Urea Nitrogen 22 6 - 23 mg/dL Creatinine 0.57 0.50 - 1.05 mg/dL GFR Female >90 >90 mL/min/1.73m2 Calcium 9.5 8.6 - 10.3 mg/dL Lipid Panel Collection Time: 06/13/22 8:30 AM Result Value Ref Range Cholesterol 170 0 - 199 mg/dL HDL 39.0 (A) mg/dL Cholesterol/HDL Ratio 4.4 LDL - 0 - 99 mg/dL VLDL SEE COMMENT 0 - 40 mg/dL Triglycerides 518 (H) 0 - 149 mg/dL Hemoglobin A1C Collection Time: 06/13/22 8:30 AM Result Value Ref Range Hemoglobin A1C 11.2 (A) % Estimated Average Glucose 275 MG/DL Assessment/Plan Problem List Items Addressed This Visit Circulatory HTN (hypertension) - Primary -Blood pressure is currently well controlled -She will stay on amlodipine 10 mg daily Relevant Orders Follow Up In Primary Care Endocrine/Metabolic Class 2 severe obesity with body mass index (BMI) of 35 to 39.9 with serious comorbidity (CMS/HCC) Diabetes (CMS/HCC) -Unfortunately her hemoglobin A1c came back very high at 11.2 -We are adding Lantus 10 units subcu daily and we are not trying the Trulicity due to her history of pancreatitis in the past-she will give me weekly updates through [employer]-she will continue with metformin XR 500 mg 2 tablets twice daily-glipizide XL 10 mg daily -At the very least we will see her back in 3 months for reevaluation and she will get a hemoglobin A1c just prior to that visit Relevant Orders Follow Up In Primary Care Hemoglobin A1C Other Hyperlipidemia LDL goal <100 -Triglycerides were very high at 518 -Unable to calculate LDL cholesterol -With lowering blood sugars triglycerides should get better Relevant Orders Follow Up In Primary Care Atypical chest pain -As we discussed her symptoms I then became convinced that she should go to the emergency room for evaluation given her atypical symptoms and multiple risk factors which include -Uncontrolled diabetes -Hyperlipidemia -Hypertension -History of carotid disease Relevant Orders Follow Up In Primary Care Kristen Caballero DO documented in this [facility] Work Phone: [phone] Instructions* Patient Instructions* Kristen Caballero DO - 06/16/2022 8:20 AM EDT -We will have you go to the emergency room just to make sure that your chest pain is not cardiac innature. Please go directly there and I will call ahead on your behalf -Hopefully everything comes back okay and please let us know how you are doing -We have prescribed Lantus 10 units subcu daily and please give me an update through my chart every1 to 2 weeks. We will make adjustments over the phone -At the very least I will see you back in 3 months for reevaluation and please remember to stop andget your hemoglobin A1c just prior to that visit documented in this [facility] Work Phone: [phone] History of Present illness Narrative* Melissaurmila Sidhu - 10/16/2020 4:00 PM EDT Finger stick performed on left middle digit. Glucose and A1C sample obtained, test completed and documented. Pt had no c/o discomfort. * David Thomas MD - 10/16/2020 4:00 PM EDT Clinical Care Team: -Referring Provider for today's visit: Kristen Caballero DO -Primary Care Provider: Kristen Caballero Chief Complaint Patient presents with Diabetes type 2; 2000 onset. pt states checking bs once a day. pt states needs to have knee surgery and has to have A1c under 7.5n History of Present Illness: Alina Patel is a 59 y.o. female who presents to the [facility] Endocrinology, Diabetes [facility] Metabolism Clinic today for follow-up evaluation and treatment of Type 2 Diabetes Mellitus. She was last seen in 12/13/2019 At the time of her last appointment we discussed staying on her current victoza dosing. We discussed increasing her metformin XR to 1000 mg in the morning and 500 mg in the evening based on her overall glucose trends (an update prescription was sent to her pharmacy). She continues to take full dose victoza and is taking full dose metform XR She reports that she has been worked up for gastrointestinal symptoms that she has been having for the last month. She reports that a lipase level was normal. She had CT imaging that showed enlargement of her liver and spleen per report. She has been referred to discuss this with a driller and broacher per report. Her A1c was 8.1 when checked today in clinic and her POC glucose was 122 She reports having issues with UTIs several times a year. She reports that she needs to have left knee surgery but has been told that her A1c has to be less than 7.5 to have this done History compiled from chart review: She reports that she was diagnosed with diabetes in 2003. She reports that over the years she has been on a variety of medications. She reports that she is intolerant of metformin (GI upset and diarrhea). She reports that both of her parents had issues with diabetes. Blood glucose ranges: She ranges from the 100s to 180s most of the time when she checks Hypoglycemia: Patient is aware of hypoglycemic symptoms including weakness, shakiness, sweating, and palpitations. Last call to EMS: N/A Baldomero Hypoglycemia Score: N/A Continuous Glucose Monitor: None Her current diabetes treatment is victoza 1.8 mg daily and metformin XR 1000 mg BID Insulin: Not currently on insulin Exercise: as she is able Current diet: follows a healthy diet as she is able Type 2 Diabetes (T2DM) Summary Diagnosis Date: : No LMP recorded. Patient is postmenopausal. Tobacco: Social History Tobacco Use Smoking Status Never Smoker Smokeless Tobacco Never Used Alcohol: Social History Substance and Sexual Activity Alcohol Use Never Vaccines: There is no immunization history on file for this patient. Eye exam Health Maintenance Status Date DIABETIC EYE EXAM Overdue 1960 Foot Exam Health Maintenance Status Date DIABETIC FOOT EXAM Overdue 1960 Dental Exam Sees a dentist on a regular basis Complications: Known diabetic complications: none No problems updated. Medical / Surgical History: She has a past medical history of Essential hypertension, benign, Hyperlipidemia, IBS (irritable bowel syndrome), and Type 2 diabetes mellitus. She has a past surgical history that includes hernia repair; tonsillectomy; section; and gall bladder surgery. Family / Social History: Her family history includes Diabetes in her father and mother; GI Disease in her mother and sister;Genetic Disorders in her daughter; Hypertension in her father and mother; Lipid Disorder in her father. She reports that she has never smoked. She has never used smokeless tobacco. She reports that she does not drink alcohol and does not use drugs. Allergies / Medications: Allergies Allergen Reactions Codeine Nausea and Vomiting Lisinopril Cough Metformin Diarrhea Current Outpatient Medications Medication Sig aspirin EC [address] Take 81 mg by mouth Daily (with dinner). calcium carbonate 1250 (500 Ca) MG tablet Take by mouth. Cholecalciferol (D-5000) 5000 units Tab per tablet Take 5,000 Units by mouth daily. Cranberry 1000 MG Cap Take by mouth. esomeprazole [address] capsule GLUCOSE TEST STRIPS PRESCRIPTION by Instructed route. Test 4 times a day. Freestyle lite brand. ibuprofen 600 MG Tab tablet Take by mouth 2 times daily as needed. Inulin (FIBER CHOICE PO) Take by mouth. Liraglutide (VICTOZA) 18 MG/3ML Solution Pen-injector injection Inject 1.8 mg under the skin daily. losartan 25 MG Tab tablet Take 50 mg by mouth daily. metFORMIN-XR 500 MG Tab SR 24 HR Take 1000 mg in the morning and 500 mg in the afternoon (Patient taking differently: 2 times daily. Take 1000 mg bid) pravastatin 40 MG Tab tablet Take 40 mg by mouth daily. Probiotic Product (PROBIOTIC-10 PO) Take 1 capsule by mouth daily. The past family, medical, and social history were otherwise reviewed and documented in the electronic record system. Review of Systems: Constitutional: No chills and malaise/fatigue. Skin: No rash HENT: No congestion Eyes: No blurred vision and double vision. Cardiovascular: No chest pain, no palpitations Respiratory: No cough or SOB. Gastrointestinal: No abdominal pain Genitourinary: No urgency and polyuria. Musculoskeletal: No back pain and joint pain. Neurological: No dizziness, focal weakness, headaches. Endocrine: No polydipsia. PHQ-2 - Over the past 2 weeks how often have you been bothered by any of the following issues: 1. Little interest or pleasure in doing things Not at all = 0 2. Feeling down, depressed or hopeless Not at all = 0 Physical Exam BP 120/70 Pulse 72 Temp 97.1 F (36.2 C) (Infrared) Ht 1.736 m (5' 8.35) Wt 104.2 kg (229 lb 11.2 oz) BMI 34.57 kg/m Smoking Status Never Smoker Body mass index is 34.57 kg/m . BP Readings from Last 3 Encounters: 10/16/20 120/70 12/13/19 121/70 03/25/19 144/82 Wt Readings from Last 3 Encounters: 10/16/20 104.2 kg (229 lb 11.2 oz) 12/13/19 98.4 kg (217 lb) 03/25/19 101.3 kg (223 lb 4.8 oz) Constitutional: She is well-developed, well-nourished, and in no distress. Head: Normocephalic. Neck: Normal range of motion. Neck supple. Pulmonary/Chest: Effort normal Musculoskeletal: Normal range of motion in visualized extremities Neurological: She is alert. She is not disoriented. Psych: Cooperative Procedure / Imaging / Lab Data: Pertinent procedure/imaging/lab data was reviewed/discussed with the patient today: A1c: Lab Results Component Value Date HGBA1C 8.1 (A) 10/16/2020 HGBA1C 7.2 (A) 12/13/2019 HGBA1C 7.4 (H) 03/25/2019 Lipids: No results found for: CHOLESTEROL, HDL, TRIG, LDLCALC, CHOLTOTALHDL Renal: No results found for: MICROALBUMIN, MICROALBUPOC, MICROALB No results found for: CREATSERUM, CREATURINE, CREATADULT, CREATFLUID Chemistries: Lab Results Component Value Date SODIUM 139.0 08/08/2003 POTASSIUM 3.80 08/08/2003 GLUCOSE 122 (A) 10/16/2020 Liver: No results found for: ALT, TRANSFERASEA, AST, GGT, GAMMAGT, ALKPHOS, BILITOTAL, BILIDIRECT Thyroid: No results found for: TSH, [id number], MIA35EGR, TSHBASELINE, TSHULTRASEN, T3FREE, T5GNPXRQP, X4KZMBX, D9XYNDWS, T4FREE, TPOAB Vitamin D: No results found for: [id number] B12: No results found for: B12 Assessment / Impression: 1. Type 2 diabetes mellitus with hyperglycemia, without long-term current use of insulin Ms. Alina Patel is a 59 y.o. female with history of hypertension, dyslipidemia, and Type 2 Diabetes Mellitus seen for consultation and discussion of treatment of Type 2 Diabetes Mellitus under inadequate control. With an A1C of 8.1 today. 1. We have discussed the natural history of diabetes focusing on the pathophysiology and precipitating factors. We have talked about the difference between type 2 and Type 1 Diabetes. 2. Discussed risks of complications with hyperglycemia, hypertension and dyslipidemia, including vision loss, kidney failure, amputation, stroke, heart attack and . 3. We discussed targets of therapy including an A1c < 7%, BP < 140/80, lipid management, and weight management. We discussed her glucose trends, identifying any hypoglycemia, management of symptoms of hypoglycemia, and plans for ongoing SMBG to assess glucose variability and hypoglycemia. Reviewed management prior to and while driving. 4. Reviewed records, including labs and fingerstick glucose on arrival. 5. Discussed lifestyle changes and weight control to improve glycemic control. Discussed the effects of sugared beverages. Plan: Orders Placed This Encounter LIPID PANEL W CALCULATED LDL CREATININE SERUM calcium carbonate 1250 (500 Ca) MG tablet esomeprazole [address] capsule GLUCOSE TEST STRIPS PRESCRIPTION Requested Prescriptions No prescriptions requested or ordered in this encounter 1. Diabetes medication changes: we discussed checking a repeat lipid panel and renal function todaybefore adding an additional agent to her therapy. With her history of recurrent UTIs SGLT-2 inhibitor therapy use is relatively contraindicated. She is concerned about weight gain as a side effect of medications which limits potential options for treatment. 2. Education addressed during this appointment today: repeat lab testing 3. Hypertension: Yes. Blood pressure is under good control. I recommend continuing current medications per her PCP. 4. Kidney function: will check repeat labs today. Labs: No results found for: CREATURINE, CREATSERUM, MICALBCREAT. 5. Diabetic neuropathy- The patient does not have evidence of peripheral neuropathy. 6. Hyperlipidemia: Yes. Her LDL goal is < 100 mg/dl (CHD or CHD risk equivalent is present). LDL is under good control. she is currently taking: Moderate Potency: 30-50% LDL lowering [id number] mg. Patients 40-75 years of age with no ASCVD risk factors are recommended to be on a moderate potency statin. Will check repeat labs today 7. Anti-platelet therapy - ADA recommends aspirin therapy (75 162 mg/day) as a primary prevention strategy in those with diabetes who are at increased cardiovascular risk (10-year risk > 10%). This includes most men or women with diabetes aged > 50 years who have at least one additional majorrisk factor (family history of premature atherosclerotic cardiovascular disease (<55 years of age in a first-degree male relative or <65 years of age in a first-degree female relative), hypertension, smoking, dyslipidemia, or albuminuria) and are not at increased risk of bleeding. She currently takes: Aspirin 81mg daily 8. Eye Examinaton: The patient has seen an cco & president within the past year. Return in about 3 months (around 01/16/2021). There are no Patient Instructions on file for this visit. [facility] History of Present illness Narrative* Referring provider: Kristen Caballero * Ms. Patel is a 59 year-old female with hypertension, hyperlipidemia, and diabetes mellitus who presented to GI clinic for evaluation of abnormal CT scan, chronic abdominal bloating, and constipation. Patient has chronic constipation for several years. In the past few months, patient noticed worsening abdominal bloating. She reported intermittent periumbilical pain. She has about 2-3 BM per week with small pepples BM, not a substantial output. Patient takes fibercon and dulcolax daily but hasnot noticed much difference in her symptoms. Patient has not tried other laxatives. Patient had a colonoscopy at outside hospital about 10 years ago which reportedly showed 1-2 polyps. Patietn could nto recall when she was told to follow-up. She had recent CBC, BMP, and hepatic functional panel which were unremarkable. CT scan abdomen/pelvis on 10/10/20 showed hepatomegaly with steatosis and inssipated material in the small bowel suggestive of fecalizatino and low motility state. [facility] Work Phone: [phone] 455-506306-10-2021 History of Present illness Narrative* Referring provider: Kristen Caballero * Ms. Patel is a 59 year-old female with hypertension, hyperlipidemia, and diabetes mellitus who presented to GI clinic for evaluation of abnormal CT scan, chronic abdominal bloating, and constipation. Patient has chronic constipation for several years. In the past few months, patient noticed worsening abdominal bloating. She reported intermittent periumbilical pain. She has about 2-3 BM per week with small pepples BM, not a substantial output. Patient takes fibercon and dulcolax daily but hasnot noticed much difference in her symptoms. Patient has not tried other laxatives. Patient had a colonoscopy at outside hospital about 10 years ago which reportedly showed 1-2 polyps. Patietn could nto recall when she was told to follow-up. She had recent CBC, BMP, and hepatic functional panel which were unremarkable. CT scan abdomen/pelvis on 10/10/20 showed hepatomegaly with steatosis and inssipated material in the small bowel suggestive of fecalizatino and low motility state. [facility] Work Phone: [phone] 752-686006-04-2021 History of Present illness Narrative* Referring provider: Kristen Caballero * Ms. Patel is a 59 year-old female with hypertension, hyperlipidemia, and diabetes mellitus who presented to GI clinic for evaluation of abnormal CT scan, chronic abdominal bloating, and constipation. Patient has chronic constipation for several years. In the past few months, patient noticed worsening abdominal bloating. She reported intermittent periumbilical pain. She has about 2-3 BM per week with small pepples BM, not a substantial output. Patient takes fibercon and dulcolax daily but hasnot noticed much difference in her symptoms. Patient has not tried other laxatives. Patient had a colonoscopy at outside hospital about 10 years ago which reportedly showed 1-2 polyps. Patietn could nto recall when she was told to follow-up. She had recent CBC, BMP, and hepatic functional panel which were unremarkable. CT scan abdomen/pelvis on 10/10/20 showed hepatomegaly with steatosis and inssipated material in the small bowel suggestive of fecalizatino and low motility state. [id number] [facility] Work Phone: [phone] 249-726306-01-2021 History of Present illness NarrativePatient is a pleasant 59-year-old female presenting for evaluation of right elbow pain. Patient is right-hand dominant. Insidious onset of symptoms approximately 1 month ago without any known injury or inciting incident/change in activity. Pain was somewhat diffuse initially, has become more prominent over the medial aspect of her elbow more recently. She admits to some occasional radiation down the forearm. Pain is exacerbated by various activities, she admits to pain putting on her head scarf. 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 She deniesany significant swelling or significant stiffness of the elbow, feels like she has some difficulty fully straightening her elbow at times, more notable pain with full flexion. She denies any history of prior problems in the past. Says she will get occasional tingling into the hand but this is relatively infrequent. She denies any redness or warmth. She has been taking [id number] Motrin for pain control which does provide some relief.[facility] [address] Work Phone: chief complaint Narrative - ReportedALINA PATEL is being seen for a cardiovascular evaluation . chest pain.[id number] [employer] Work Phone: Chief complaint Narrative - Malia PATEL is being seen for a cardiovascular evaluation . follow up after tests. [id number] [address] [place] Work Phone: Evaluation note* Diagnosis Type 2 diabetes mellitus with hyperglycemia, without long-term current use of insulin [facility] Secondary hypertension- Primary Other secondary hypertension, unspecified Type 2 diabetes mellitus with hyperglycemia, without long-term current use of insulin (CMS/HCC) Hyperlipidemia LDL goal <100 Other and unspecified hyperlipidemia Atypical chest pain Other chest pain Class 2 severe obesity with body mass index (BMI) of 35 to 39.9 with serious comorbidity (CMS/HCC) documented in this encounter [facility] Work Phone: [phone] note* Diagnosis Other pneumothorax- Primary Epigastric pain Abdominal pain, epigastric documented in this encounter [facility] Work Phone: [phone] note* Diagnosis Other pneumothorax documented in this encounter [facility] Work Phone: [phone] note* Diagnosis Epigastric pain Abdominal pain, epigastric documented in this encounter [facility] Work Phone: [phone] note* Diagnosis Other pneumothorax documented in this encounter [facility] Work Phone: [phone] note* Diagnosis Hyperlipidemia LDL goal <100- Primary Other and unspecified hyperlipidemia Pill dysphagia Vaginal yeast infection Candidiasis of vulva and vagina Hepatic steatosis Other chronic nonalcoholic liver disease Secondary hypertension Other secondary hypertension, unspecified documented in this encounter [facility] Work Phone: [phone] note* Diagnosis Acute vaginitis- Primary Unspecified vaginitis and vulvovaginitis documented in this encounter [facility] Work Phone: [phone] note* Diagnosis Left knee pain, unspecified chronicity Left knee pain, unspecified chronicity documented in this encounter [facility] Work Phone: [phone] note* Diagnosis Left knee pain, unspecified chronicity Sprain of left knee, initial encounter documented in this encounter [facility] Work Phone: Evaluation note* Diagnosis Atherosclerosis- Primary documented in this encounter [facility] Work Phone: Evaluation note* Diagnosis Sprain of left knee, initial encounter documented in this encounter [facility] Work Phone: Evaluation note* Diagnosis Encounter for screening mammogram for malignant neoplasm of breast- Primary Type 2 diabetes mellitus with hyperglycemia, without long-term current use of insulin ([facility]) Secondary hypertension Other secondary hypertension, unspecified Hyperlipidemia LDL goal <100 Other and unspecified hyperlipidemia Pill dysphagia documented in this encounter [facility] Work Phone: Evaluation note* Diagnosis Acute cystitis with hematuria- Primary documented in this encounter [facility] Work Phone: Evaluation note* Diagnosis Type 2 diabetes mellitus with hyperglycemia, without long-term current use of insulin ([facility]) documented in this encounter [facility] Work Phone: Evaluation note* Diagnosis Type 2 diabetes mellitus with hyperglycemia, without long-term current use of insulin (Multi)- Primary documented in this encounter [facility] Work Phone: Evaluation note* Diagnosis Vulvar irritation- Primary Other specified noninflammatory disorder of vulva and perineum [facility] Diagnosis Secondary hypertension- Primary Other secondary hypertension, unspecified Type 2 diabetes mellitus with hyperglycemia, without long-term current use of insulin Hyperlipidemia LDL goal <100 Other and unspecified hyperlipidemia Atypical chest pain Other chest pain Class 2 severe obesity with body mass index (BMI) of 35 to 39.9 with serious comorbidity Other elevated white blood cell (WBC) count- Primary Secondary hypertension Other secondary hypertension, unspecified Type 2 diabetes mellitus with hyperglycemia, without long-term current use of insulin Hyperlipidemia LDL goal <100 Other and unspecified hyperlipidemia Atypical chest pain Other chest pain Pancreatic lesion (HHS-HCC) Class 1 obesity due to excess calories with serious comorbidity and body mass index (BMI) of 34.0 to 34.9 in adult Pill dysphagia- Primary Epigastric pain Abdominal pain, epigastric Type 2 diabetes mellitus with hyperglycemia, without long-term current use of insulin Hyperlipidemia LDL goal <100- Primary Other and unspecified hyperlipidemia Pill dysphagia Vaginal yeast infection Candidiasis of vulva and vagina Hepatic steatosis Other chronic nonalcoholic liver disease Secondary hypertension Other secondary hypertension, unspecified Encounter for screening mammogram for malignant neoplasm of breast- Primary Type 2 diabetes mellitus with hyperglycemia, without long-term current use of insulin Secondary hypertension Other secondary hypertension, unspecified Hyperlipidemia LDL goal <100 Other and unspecified hyperlipidemia Pill dysphagia Type 2 diabetes mellitus with hyperglycemia, without long-term current use of insulin Type 2 diabetes mellitus with hyperglycemia, without long-term current use of insulin- Primary Secondary hypertension- Primary Other secondary hypertension, unspecified Gastroesophageal reflux disease without esophagitis Esophageal reflux Type 2 diabetes mellitus with hyperglycemia, without long-term current use of insulin Hyperlipidemia LDL goal <100 Other and unspecified hyperlipidemia Hordeolum externum of left lower eyelid Type 2 diabetes mellitus with hyperglycemia, without long-term current use of insulin documented in this encounter [facility] Work Phone: Evaluation note* Diagnosis Secondary hypertension- Primary Other secondary hypertension, unspecified Type 2 diabetes mellitus with hyperglycemia, without long-term current use of insulin Hyperlipidemia LDL goal <100 Other and unspecified hyperlipidemia Atypical chest pain Other chest pain Class 2 severe obesity with body mass index (BMI) of 35 to 39.9 with serious comorbidity Other elevated white blood cell (WBC) count- Primary Secondary hypertension Other secondary hypertension, unspecified Type 2 diabetes mellitus with hyperglycemia, without long-term current use of insulin Hyperlipidemia LDL goal <100 Other and unspecified hyperlipidemia Atypical chest pain Other chest pain Pancreatic lesion (HHS-HCC) Class 1 obesity due to excess calories with serious comorbidity and body mass index (BMI) of 34.0 to 34.9 in adult Pill dysphagia- Primary Epigastric pain Abdominal pain, epigastric Type 2 diabetes mellitus with hyperglycemia, without long-term current use of insulin Hyperlipidemia LDL goal <100- Primary Other and unspecified hyperlipidemia Pill dysphagia Vaginal yeast infection Candidiasis of vulva and vagina Hepatic steatosis Other chronic nonalcoholic liver disease Secondary hypertension Other secondary hypertension, unspecified Encounter for screening mammogram for malignant neoplasm of breast- Primary Type 2 diabetes mellitus with hyperglycemia, without long-term current use of insulin Secondary hypertension Other secondary hypertension, unspecified Hyperlipidemia LDL goal <100 Other and unspecified hyperlipidemia Pill dysphagia Type 2 diabetes mellitus with hyperglycemia, without long-term current use of insulin Type 2 diabetes mellitus with hyperglycemia, without long-term current use of insulin- Primary Secondary hypertension- Primary Other secondary hypertension, unspecified Gastroesophageal reflux disease without esophagitis Esophageal reflux Type 2 diabetes mellitus with hyperglycemia, without long-term current use of insulin Hyperlipidemia LDL goal <100 Other and unspecified hyperlipidemia Hordeolum externum of left lower eyelid Acute cystitis with hematuria- Primary Dysuria documented in this encounter [facility] Work Phone: Evaluation note* Diagnosis Secondary hypertension- Primary Other secondary hypertension, unspecified Type 2 diabetes mellitus with hyperglycemia, without long-term current use of insulin Hyperlipidemia LDL goal <100 Other and unspecified hyperlipidemia Atypical chest pain Other chest pain Class 2 severe obesity with body mass index (BMI) of 35 to 39.9 with serious comorbidity Other elevated white blood cell (WBC) count- Primary Secondary hypertension Other secondary hypertension, unspecified Type 2 diabetes mellitus with hyperglycemia, without long-term current use of insulin Hyperlipidemia LDL goal <100 Other and unspecified hyperlipidemia Atypical chest pain Other chest pain Pancreatic lesion (HHS-HCC) Class 1 obesity due to excess calories with serious comorbidity and body mass index (BMI) of 34.0 to 34.9 in adult Pill dysphagia- Primary Epigastric pain Abdominal pain, epigastric Type 2 diabetes mellitus with hyperglycemia, without long-term current use of insulin Hyperlipidemia LDL goal <100- Primary Other and unspecified hyperlipidemia Pill dysphagia Vaginal yeast infection Candidiasis of vulva and vagina Hepatic steatosis Other chronic nonalcoholic liver disease Secondary hypertension Other secondary hypertension, unspecified Encounter for screening mammogram for malignant neoplasm of breast- Primary Type 2 diabetes mellitus with hyperglycemia, without long-term current use of insulin Secondary hypertension Other secondary hypertension, unspecified Hyperlipidemia LDL goal <100 Other and unspecified hyperlipidemia Pill dysphagia Type 2 diabetes mellitus with hyperglycemia, without long-term current use of insulin Type 2 diabetes mellitus with hyperglycemia, without long-term current use of insulin- Primary Secondary hypertension- Primary Other secondary hypertension, unspecified Gastroesophageal reflux disease without esophagitis Esophageal reflux Type 2 diabetes mellitus with hyperglycemia, without long-term current use of insulin Hyperlipidemia LDL goal <100 Other and unspecified hyperlipidemia Hordeolum externum of left lower eyelid Type 2 diabetes mellitus with hyperglycemia, without long-term current use of insulin documented in this encounter [facility] Work Phone: Evaluation note* Diagnosis Secondary hypertension- Primary Other secondary hypertension, unspecified Type 2 diabetes mellitus with hyperglycemia, without long-term current use of insulin Hyperlipidemia LDL goal <100 Other and unspecified hyperlipidemia Atypical chest pain Other chest pain Class 2 severe obesity with body mass index (BMI) of 35 to 39.9 with serious comorbidity Other elevated white blood cell (WBC) count- Primary Secondary hypertension Other secondary hypertension, unspecified Type 2 diabetes mellitus with hyperglycemia, without long-term current use of insulin Hyperlipidemia LDL goal <100 Other and unspecified hyperlipidemia Atypical chest pain Other chest pain Pancreatic lesion (HHS-HCC) Class 1 obesity due to excess calories with serious comorbidity and body mass index (BMI) of 34.0 to 34.9 in adult Pill dysphagia- Primary Epigastric pain Abdominal pain, epigastric Type 2 diabetes mellitus with hyperglycemia, without long-term current use of insulin Hyperlipidemia LDL goal <100- Primary Other and unspecified hyperlipidemia Pill dysphagia Vaginal yeast infection Candidiasis of vulva and vagina Hepatic steatosis Other chronic nonalcoholic liver disease Secondary hypertension Other secondary hypertension, unspecified Encounter for screening mammogram for malignant neoplasm of breast- Primary Type 2 diabetes mellitus with hyperglycemia, without long-term current use of insulin Secondary hypertension Other secondary hypertension, unspecified Hyperlipidemia LDL goal <100 Other and unspecified hyperlipidemia Pill dysphagia Type 2 diabetes mellitus with hyperglycemia, without long-term current use of insulin Type 2 diabetes mellitus with hyperglycemia, without long-term current use of insulin- Primary Secondary hypertension- Primary Other secondary hypertension, unspecified Gastroesophageal reflux disease without esophagitis Esophageal reflux Type 2 diabetes mellitus with hyperglycemia, without long-term current use of insulin Hyperlipidemia LDL goal <100 Other and unspecified hyperlipidemia Hordeolum externum of left lower eyelid Type 2 diabetes mellitus with hyperglycemia, without long-term current use of insulin documented in this encounter [facility] Work Phone: Evaluation note* Diagnosis Secondary hypertension- Primary Other secondary hypertension, unspecified Type 2 diabetes mellitus with hyperglycemia, without long-term current use of insulin Hyperlipidemia LDL goal <100 Other and unspecified hyperlipidemia Atypical chest pain Other chest pain Class 2 severe obesity with body mass index (BMI) of 35 to 39.9 with serious comorbidity Other elevated white blood cell (WBC) count- Primary Secondary hypertension Other secondary hypertension, unspecified Type 2 diabetes mellitus with hyperglycemia, without long-term current use of insulin Hyperlipidemia LDL goal <100 Other and unspecified hyperlipidemia Atypical chest pain Other chest pain Pancreatic lesion (HHS-HCC) Class 1 obesity due to excess calories with serious comorbidity and body mass index (BMI) of 34.0 to 34.9 in adult Pill dysphagia- Primary Epigastric pain Abdominal pain, epigastric Type 2 diabetes mellitus with hyperglycemia, without long-term current use of insulin Hyperlipidemia LDL goal <100- Primary Other and unspecified hyperlipidemia Pill dysphagia Vaginal yeast infection Candidiasis of vulva and vagina Hepatic steatosis Other chronic nonalcoholic liver disease Secondary hypertension Other secondary hypertension, unspecified Encounter for screening mammogram for malignant neoplasm of breast- Primary Type 2 diabetes mellitus with hyperglycemia, without long-term current use of insulin Secondary hypertension Other secondary hypertension, unspecified Hyperlipidemia LDL goal <100 Other and unspecified hyperlipidemia Pill dysphagia Type 2 diabetes mellitus with hyperglycemia, without long-term current use of insulin Type 2 diabetes mellitus with hyperglycemia, without long-term current use of insulin- Primary Secondary hypertension- Primary Other secondary hypertension, unspecified Gastroesophageal reflux disease without esophagitis Esophageal reflux Type 2 diabetes mellitus with hyperglycemia, without long-term current use of insulin Hyperlipidemia LDL goal <100 Other and unspecified hyperlipidemia Hordeolum externum of left lower eyelid Upper respiratory tract infection, unspecified type- Primary 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, subsequent Class 2 severe obesity with body mass index (BMI) of 35 to 39.9 with serious comorbidity Bilateral carotid artery stenosis Occlusion and stenosis of carotid artery without mention of cerebral infarction Hyperlipidemia LDL goal <100 Other and unspecified hyperlipidemia Secondary hypertension Other secondary hypertension, unspecified Gastroesophageal reflux disease without esophagitis Esophageal reflux Type 2 diabetes mellitus with hyperglycemia, with long-term current use of insulin documented in this encounter [facility] Work Phone: Evaluation note* Diagnosis Secondary hypertension- Primary Other secondary hypertension, unspecified Type 2 diabetes mellitus with hyperglycemia, without long-term current use of insulin Hyperlipidemia LDL goal <100 Other and unspecified hyperlipidemia Atypical chest pain Other chest pain Class 2 severe obesity with body mass index (BMI) of 35 to 39.9 with serious comorbidity Other elevated white blood cell (WBC) count- Primary Secondary hypertension Other secondary hypertension, unspecified Type 2 diabetes mellitus with hyperglycemia, without long-term current use of insulin Hyperlipidemia LDL goal <100 Other and unspecified hyperlipidemia Atypical chest pain Other chest pain Pancreatic lesion (HHS-HCC) Class 1 obesity due to excess calories with serious comorbidity and body mass index (BMI) of 34.0 to 34.9 in adult Pill dysphagia- Primary Epigastric pain Abdominal pain, epigastric Type 2 diabetes mellitus with hyperglycemia, without long-term current use of insulin Hyperlipidemia LDL goal <100- Primary Other and unspecified hyperlipidemia Pill dysphagia Vaginal yeast infection Candidiasis of vulva and vagina Hepatic steatosis Other chronic nonalcoholic liver disease Secondary hypertension Other secondary hypertension, unspecified Encounter for screening mammogram for malignant neoplasm of breast- Primary Type 2 diabetes mellitus with hyperglycemia, without long-term current use of insulin Secondary hypertension Other secondary hypertension, unspecified Hyperlipidemia LDL goal <100 Other and unspecified hyperlipidemia Pill dysphagia Type 2 diabetes mellitus with hyperglycemia, without long-term current use of insulin Type 2 diabetes mellitus with hyperglycemia, without long-term current use of insulin- Primary Secondary hypertension- Primary Other secondary hypertension, unspecified Gastroesophageal reflux disease without esophagitis Esophageal reflux Type 2 diabetes mellitus with hyperglycemia, without long-term current use of insulin Hyperlipidemia LDL goal <100 Other and unspecified hyperlipidemia Hordeolum externum of left lower eyelid Upper respiratory tract infection, unspecified type- Primary 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, subsequent Class 2 severe obesity with body mass index (BMI) of 35 to 39.9 with serious comorbidity Bilateral carotid artery stenosis Occlusion and stenosis of carotid artery without mention of cerebral infarction Hyperlipidemia LDL goal <100 Other and unspecified hyperlipidemia Secondary hypertension Other secondary hypertension, unspecified Gastroesophageal reflux disease without esophagitis Esophageal reflux Type 2 diabetes mellitus with hyperglycemia, with long-term current use of insulin Type 2 diabetes mellitus with hyperglycemia, without long-term current use of insulin documented in this encounter [facility] Work Phone: Evaluation note* Diagnosis Secondary hypertension- Primary Other secondary hypertension, unspecified Type 2 diabetes mellitus with hyperglycemia, without long-term current use of insulin Hyperlipidemia LDL goal <100 Other and unspecified hyperlipidemia Atypical chest pain Other chest pain Class 2 severe obesity with body mass index (BMI) of 35 to 39.9 with serious comorbidity Other elevated white blood cell (WBC) count- Primary Secondary hypertension Other secondary hypertension, unspecified Type 2 diabetes mellitus with hyperglycemia, without long-term current use of insulin Hyperlipidemia LDL goal <100 Other and unspecified hyperlipidemia Atypical chest pain Other chest pain Pancreatic lesion (HHS-HCC) Class 1 obesity due to excess calories with serious comorbidity and body mass index (BMI) of 34.0 to 34.9 in adult Pill dysphagia- Primary Epigastric pain Abdominal pain, epigastric Type 2 diabetes mellitus with hyperglycemia, without long-term current use of insulin Hyperlipidemia LDL goal <100- Primary Other and unspecified hyperlipidemia Pill dysphagia Vaginal yeast infection Candidiasis of vulva and vagina Hepatic steatosis Other chronic nonalcoholic liver disease Secondary hypertension Other secondary hypertension, unspecified Encounter for screening mammogram for malignant neoplasm of breast- Primary Type 2 diabetes mellitus with hyperglycemia, without long-term current use of insulin Secondary hypertension Other secondary hypertension, unspecified Hyperlipidemia LDL goal <100 Other and unspecified hyperlipidemia Pill dysphagia Type 2 diabetes mellitus with hyperglycemia, without long-term current use of insulin Type 2 diabetes mellitus with hyperglycemia, without long-term current use of insulin- Primary Secondary hypertension- Primary Other secondary hypertension, unspecified Gastroesophageal reflux disease without esophagitis Esophageal reflux Type 2 diabetes mellitus with hyperglycemia, without long-term current use of insulin Hyperlipidemia LDL goal <100 Other and unspecified hyperlipidemia Hordeolum externum of left lower eyelid Upper respiratory tract infection, unspecified type- Primary 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, subsequent Class 2 severe obesity with body mass index (BMI) of 35 to 39.9 with serious comorbidity Bilateral carotid artery stenosis Occlusion and stenosis of carotid artery without mention of cerebral infarction Hyperlipidemia LDL goal <100 Other and unspecified hyperlipidemia Secondary hypertension Other secondary hypertension, unspecified Gastroesophageal reflux disease without esophagitis Esophageal reflux Type 2 diabetes mellitus with hyperglycemia, with long-term current use of insulin Type 2 diabetes mellitus with hyperglycemia, without long-term current use of insulin documented in this encounter [facility] Work Phone: Evaluation note* Diagnosis Secondary hypertension- Primary Other secondary hypertension, unspecified Type 2 diabetes mellitus with hyperglycemia, without long-term current use of insulin Hyperlipidemia LDL goal <100 Other and unspecified hyperlipidemia Atypical chest pain Other chest pain Class 2 severe obesity with body mass index (BMI) of 35 to 39.9 with serious comorbidity Other elevated white blood cell (WBC) count- Primary Secondary hypertension Other secondary hypertension, unspecified Type 2 diabetes mellitus with hyperglycemia, without long-term current use of insulin Hyperlipidemia LDL goal <100 Other and unspecified hyperlipidemia Atypical chest pain Other chest pain Pancreatic lesion (HHS-HCC) Class 1 obesity due to excess calories with serious comorbidity and body mass index (BMI) of 34.0 to 34.9 in adult Pill dysphagia- Primary Epigastric pain Abdominal pain, epigastric Type 2 diabetes mellitus with hyperglycemia, without long-term current use of insulin Hyperlipidemia LDL goal <100- Primary Other and unspecified hyperlipidemia Pill dysphagia Vaginal yeast infection Candidiasis of vulva and vagina Hepatic steatosis Other chronic nonalcoholic liver disease Secondary hypertension Other secondary hypertension, unspecified Encounter for screening mammogram for malignant neoplasm of breast- Primary Type 2 diabetes mellitus with hyperglycemia, without long-term current use of insulin Secondary hypertension Other secondary hypertension, unspecified Hyperlipidemia LDL goal <100 Other and unspecified hyperlipidemia Pill dysphagia Type 2 diabetes mellitus with hyperglycemia, without long-term current use of insulin Type 2 diabetes mellitus with hyperglycemia, without long-term current use of insulin- Primary Secondary hypertension- Primary Other secondary hypertension, unspecified Gastroesophageal reflux disease without esophagitis Esophageal reflux Type 2 diabetes mellitus with hyperglycemia, without long-term current use of insulin Hyperlipidemia LDL goal <100 Other and unspecified hyperlipidemia Hordeolum externum of left lower eyelid Upper respiratory tract infection, unspecified type- Primary 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, subsequent Class 2 severe obesity with body mass index (BMI) of 35 to 39.9 with serious comorbidity Bilateral carotid artery stenosis Occlusion and stenosis of carotid artery without mention of cerebral infarction Hyperlipidemia LDL goal <100 Other and unspecified hyperlipidemia Secondary hypertension Other secondary hypertension, unspecified Gastroesophageal reflux disease without esophagitis Esophageal reflux Type 2 diabetes mellitus with hyperglycemia, with long-term current use of insulin Type 2 diabetes mellitus with hyperglycemia, without long-term current use of insulin documented in this encounter [facility] Work Phone: Evaluation note* Diagnosis Secondary hypertension- Primary Other secondary hypertension, unspecified Type 2 diabetes mellitus with hyperglycemia, without long-term current use of insulin Hyperlipidemia LDL goal <100 Other and unspecified hyperlipidemia Atypical chest pain Other chest pain Class 2 severe obesity with body mass index (BMI) of 35 to 39.9 with serious comorbidity Other elevated white blood cell (WBC) count- Primary Secondary hypertension Other secondary hypertension, unspecified Type 2 diabetes mellitus with hyperglycemia, without long-term current use of insulin Hyperlipidemia LDL goal <100 Other and unspecified hyperlipidemia Atypical chest pain Other chest pain Pancreatic lesion (HHS-HCC) Class 1 obesity due to excess calories with serious comorbidity and body mass index (BMI) of 34.0 to 34.9 in adult Pill dysphagia- Primary Epigastric pain Abdominal pain, epigastric Type 2 diabetes mellitus with hyperglycemia, without long-term current use of insulin Hyperlipidemia LDL goal <100- Primary Other and unspecified hyperlipidemia Pill dysphagia Vaginal yeast infection Candidiasis of vulva and vagina Hepatic steatosis Other chronic nonalcoholic liver disease Secondary hypertension Other secondary hypertension, unspecified Encounter for screening mammogram for malignant neoplasm of breast- Primary Type 2 diabetes mellitus with hyperglycemia, without long-term current use of insulin Secondary hypertension Other secondary hypertension, unspecified Hyperlipidemia LDL goal <100 Other and unspecified hyperlipidemia Pill dysphagia Type 2 diabetes mellitus with hyperglycemia, without long-term current use of insulin Type 2 diabetes mellitus with hyperglycemia, without long-term current use of insulin- Primary Secondary hypertension- Primary Other secondary hypertension, unspecified Gastroesophageal reflux disease without esophagitis Esophageal reflux Type 2 diabetes mellitus with hyperglycemia, without long-term current use of insulin Hyperlipidemia LDL goal <100 Other and unspecified hyperlipidemia Hordeolum externum of left lower eyelid Upper respiratory tract infection, unspecified type- Primary 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, subsequent Class 2 severe obesity with body mass index (BMI) of 35 to 39.9 with serious comorbidity Bilateral carotid artery stenosis Occlusion and stenosis of carotid artery without mention of cerebral infarction Hyperlipidemia LDL goal <100 Other and unspecified hyperlipidemia Secondary hypertension Other secondary hypertension, unspecified Gastroesophageal reflux disease without esophagitis Esophageal reflux Type 2 diabetes mellitus with hyperglycemia, with long-term current use of insulin Type 2 diabetes mellitus with hyperglycemia, without long-term current use of insulin documented in this encounter [facility] Work Phone: Evaluation note* Diagnosis Secondary hypertension- Primary Other secondary hypertension, unspecified Type 2 diabetes mellitus with hyperglycemia, without long-term current use of insulin Hyperlipidemia LDL goal <100 Other and unspecified hyperlipidemia Atypical chest pain Other chest pain Class 2 severe obesity with body mass index (BMI) of 35 to 39.9 with serious comorbidity Other elevated white blood cell (WBC) count- Primary Secondary hypertension Other secondary hypertension, unspecified Type 2 diabetes mellitus with hyperglycemia, without long-term current use of insulin Hyperlipidemia LDL goal <100 Other and unspecified hyperlipidemia Atypical chest pain Other chest pain Pancreatic lesion (HHS-HCC) Class 1 obesity due to excess calories with serious comorbidity and body mass index (BMI) of 34.0 to 34.9 in adult Pill dysphagia- Primary Epigastric pain Abdominal pain, epigastric Type 2 diabetes mellitus with hyperglycemia, without long-term current use of insulin Hyperlipidemia LDL goal <100- Primary Other and unspecified hyperlipidemia Pill dysphagia Vaginal yeast infection Candidiasis of vulva and vagina Hepatic steatosis Other chronic nonalcoholic liver disease Secondary hypertension Other secondary hypertension, unspecified Encounter for screening mammogram for malignant neoplasm of breast- Primary Type 2 diabetes mellitus with hyperglycemia, without long-term current use of insulin Secondary hypertension Other secondary hypertension, unspecified Hyperlipidemia LDL goal <100 Other and unspecified hyperlipidemia Pill dysphagia Type 2 diabetes mellitus with hyperglycemia, without long-term current use of insulin Type 2 diabetes mellitus with hyperglycemia, without long-term current use of insulin- Primary Secondary hypertension- Primary Other secondary hypertension, unspecified Gastroesophageal reflux disease without esophagitis Esophageal reflux Type 2 diabetes mellitus with hyperglycemia, without long-term current use of insulin Hyperlipidemia LDL goal <100 Other and unspecified hyperlipidemia Hordeolum externum of left lower eyelid Upper respiratory tract infection, unspecified type- Primary 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, subsequent Class 2 severe obesity with body mass index (BMI) of 35 to 39.9 with serious comorbidity Bilateral carotid artery stenosis Occlusion and stenosis of carotid artery without mention of cerebral infarction Hyperlipidemia LDL goal <100 Other and unspecified hyperlipidemia Secondary hypertension Other secondary hypertension, unspecified Gastroesophageal reflux disease without esophagitis Esophageal reflux Type 2 diabetes mellitus with hyperglycemia, with long-term current use of insulin Type 2 diabetes mellitus without complication, with long-term current use of insulin (Multi)- Primary Type 2 diabetes mellitus with hyperglycemia, without long-term current use of insulin documented in this encounter [facility] Work Phone: Evaluation note* Diagnosis Secondary hypertension- Primary Other secondary hypertension, unspecified Type 2 diabetes mellitus with hyperglycemia, without long-term current use of insulin Hyperlipidemia LDL goal <100 Other and unspecified hyperlipidemia Atypical chest pain Other chest pain Class 2 severe obesity with body mass index (BMI) of 35 to 39.9 with serious comorbidity Other elevated white blood cell (WBC) count- Primary Secondary hypertension Other secondary hypertension, unspecified Type 2 diabetes mellitus with hyperglycemia, without long-term current use of insulin Hyperlipidemia LDL goal <100 Other and unspecified hyperlipidemia Atypical chest pain Other chest pain Pancreatic lesion (HHS-HCC) Class 1 obesity due to excess calories with serious comorbidity and body mass index (BMI) of 34.0 to 34.9 in adult Pill dysphagia- Primary Epigastric pain Abdominal pain, epigastric Type 2 diabetes mellitus with hyperglycemia, without long-term current use of insulin Hyperlipidemia LDL goal <100- Primary Other and unspecified hyperlipidemia Pill dysphagia Vaginal yeast infection Candidiasis of vulva and vagina Hepatic steatosis Other chronic nonalcoholic liver disease Secondary hypertension Other secondary hypertension, unspecified Encounter for screening mammogram for malignant neoplasm of breast- Primary Type 2 diabetes mellitus with hyperglycemia, without long-term current use of insulin Secondary hypertension Other secondary hypertension, unspecified Hyperlipidemia LDL goal <100 Other and unspecified hyperlipidemia Pill dysphagia Type 2 diabetes mellitus with hyperglycemia, without long-term current use of insulin Type 2 diabetes mellitus with hyperglycemia, without long-term current use of insulin- Primary Secondary hypertension- Primary Other secondary hypertension, unspecified Gastroesophageal reflux disease without esophagitis Esophageal reflux Type 2 diabetes mellitus with hyperglycemia, without long-term current use of insulin Hyperlipidemia LDL goal <100 Other and unspecified hyperlipidemia Hordeolum externum of left lower eyelid Upper respiratory tract infection, unspecified type- Primary 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, subsequent Class 2 severe obesity with body mass index (BMI) of 35 to 39.9 with serious comorbidity Bilateral carotid artery stenosis Occlusion and stenosis of carotid artery without mention of cerebral infarction Hyperlipidemia LDL goal <100 Other and unspecified hyperlipidemia Secondary hypertension Other secondary hypertension, unspecified Gastroesophageal reflux disease without esophagitis Esophageal reflux Type 2 diabetes mellitus with hyperglycemia, with long-term current use of insulin Type 2 diabetes mellitus without complication, with long-term current use of insulin (Multi) Type 2 diabetes mellitus with hyperglycemia, without long-term current use of insulin documented in this encounter [facility] Work Phone: Evaluation note* Diagnosis Secondary hypertension- Primary Other secondary hypertension, unspecified Type 2 diabetes mellitus with hyperglycemia, without long-term current use of insulin Hyperlipidemia LDL goal <100 Other and unspecified hyperlipidemia Atypical chest pain Other chest pain Class 2 severe obesity with body mass index (BMI) of 35 to 39.9 with serious comorbidity Other elevated white blood cell (WBC) count- Primary Secondary hypertension Other secondary hypertension, unspecified Type 2 diabetes mellitus with hyperglycemia, without long-term current use of insulin Hyperlipidemia LDL goal <100 Other and unspecified hyperlipidemia Atypical chest pain Other chest pain Pancreatic lesion (HHS-HCC) Class 1 obesity due to excess calories with serious comorbidity and body mass index (BMI) of 34.0 to 34.9 in adult Pill dysphagia- Primary Epigastric pain Abdominal pain, epigastric Type 2 diabetes mellitus with hyperglycemia, without long-term current use of insulin Hyperlipidemia LDL goal <100- Primary Other and unspecified hyperlipidemia Pill dysphagia Vaginal yeast infection Candidiasis of vulva and vagina Hepatic steatosis Other chronic nonalcoholic liver disease Secondary hypertension Other secondary hypertension, unspecified Encounter for screening mammogram for malignant neoplasm of breast- Primary Type 2 diabetes mellitus with hyperglycemia, without long-term current use of insulin Secondary hypertension Other secondary hypertension, unspecified Hyperlipidemia LDL goal <100 Other and unspecified hyperlipidemia Pill dysphagia Type 2 diabetes mellitus with hyperglycemia, without long-term current use of insulin Type 2 diabetes mellitus with hyperglycemia, without long-term current use of insulin- Primary Secondary hypertension- Primary Other secondary hypertension, unspecified Gastroesophageal reflux disease without esophagitis Esophageal reflux Type 2 diabetes mellitus with hyperglycemia, without long-term current use of insulin Hyperlipidemia LDL goal <100 Other and unspecified hyperlipidemia Hordeolum externum of left lower eyelid Upper respiratory tract infection, unspecified type- Primary 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, subsequent Class 2 severe obesity with body mass index (BMI) of 35 to 39.9 with serious comorbidity Bilateral carotid artery stenosis Occlusion and stenosis of carotid artery without mention of cerebral infarction Hyperlipidemia LDL goal <100 Other and unspecified hyperlipidemia Secondary hypertension Other secondary hypertension, unspecified Gastroesophageal reflux disease without esophagitis Esophageal reflux Type 2 diabetes mellitus with hyperglycemia, with long-term current use of insulin Type 2 diabetes mellitus without complication, with long-term current use of insulin (Multi)- Primary Type 2 diabetes mellitus with hyperglycemia, without long-term current use of insulin Type 2 diabetes mellitus without complication, without long-term current use of insulin (Multi) documented in this encounter [facility] Work Phone: Evaluation note* Diagnosis Secondary hypertension- Primary Other secondary hypertension, unspecified Type 2 diabetes mellitus with hyperglycemia, without long-term current use of insulin Hyperlipidemia LDL goal <100 Other and unspecified hyperlipidemia Atypical chest pain Other chest pain Class 2 severe obesity with body mass index (BMI) of 35 to 39.9 with serious comorbidity Other elevated white blood cell (WBC) count- Primary Secondary hypertension Other secondary hypertension, unspecified Type 2 diabetes mellitus with hyperglycemia, without long-term current use of insulin Hyperlipidemia LDL goal <100 Other and unspecified hyperlipidemia Atypical chest pain Other chest pain Pancreatic lesion (HHS-HCC) Class 1 obesity due to excess calories with serious comorbidity and body mass index (BMI) of 34.0 to 34.9 in adult Pill dysphagia- Primary Epigastric pain Abdominal pain, epigastric Type 2 diabetes mellitus with hyperglycemia, without long-term current use of insulin Hyperlipidemia LDL goal <100- Primary Other and unspecified hyperlipidemia Pill dysphagia Vaginal yeast infection Candidiasis of vulva and vagina Hepatic steatosis Other chronic nonalcoholic liver disease Secondary hypertension Other secondary hypertension, unspecified Encounter for screening mammogram for malignant neoplasm of breast- Primary Type 2 diabetes mellitus with hyperglycemia, without long-term current use of insulin Secondary hypertension Other secondary hypertension, unspecified Hyperlipidemia LDL goal <100 Other and unspecified hyperlipidemia Pill dysphagia Type 2 diabetes mellitus with hyperglycemia, without long-term current use of insulin Type 2 diabetes mellitus with hyperglycemia, without long-term current use of insulin- Primary Secondary hypertension- Primary Other secondary hypertension, unspecified Gastroesophageal reflux disease without esophagitis Esophageal reflux Type 2 diabetes mellitus with hyperglycemia, without long-term current use of insulin Hyperlipidemia LDL goal <100 Other and unspecified hyperlipidemia Hordeolum externum of left lower eyelid Upper respiratory tract infection, unspecified type- Primary 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, subsequent Class 2 severe obesity with body mass index (BMI) of 35 to 39.9 with serious comorbidity Bilateral carotid artery stenosis Occlusion and stenosis of carotid artery without mention of cerebral infarction Hyperlipidemia LDL goal <100 Other and unspecified hyperlipidemia Secondary hypertension Other secondary hypertension, unspecified Gastroesophageal reflux disease without esophagitis Esophageal reflux Type 2 diabetes mellitus with hyperglycemia, with long-term current use of insulin Abnormal urine odor- Primary Other nonspecific finding on examination of urine Acute cystitis without hematuria Secondary hypertension Other secondary hypertension, unspecified documented in this encounter [facility] Work Phone: Evaluation note* Diagnosis Secondary hypertension- Primary Other secondary hypertension, unspecified Type 2 diabetes mellitus with hyperglycemia, without long-term current use of insulin Hyperlipidemia LDL goal <100 Other and unspecified hyperlipidemia Atypical chest pain Other chest pain Class 2 severe obesity with body mass index (BMI) of 35 to 39.9 with serious comorbidity Other elevated white blood cell (WBC) count- Primary Secondary hypertension Other secondary hypertension, unspecified Type 2 diabetes mellitus with hyperglycemia, without long-term current use of insulin Hyperlipidemia LDL goal <100 Other and unspecified hyperlipidemia Atypical chest pain Other chest pain Pancreatic lesion (HHS-HCC) Class 1 obesity due to excess calories with serious comorbidity and body mass index (BMI) of 34.0 to 34.9 in adult Pill dysphagia- Primary Epigastric pain Abdominal pain, epigastric Type 2 diabetes mellitus with hyperglycemia, without long-term current use of insulin Hyperlipidemia LDL goal <100- Primary Other and unspecified hyperlipidemia Pill dysphagia Vaginal yeast infection Candidiasis of vulva and vagina Hepatic steatosis Other chronic nonalcoholic liver disease Secondary hypertension Other secondary hypertension, unspecified Encounter for screening mammogram for malignant neoplasm of breast- Primary Type 2 diabetes mellitus with hyperglycemia, without long-term current use of insulin Secondary hypertension Other secondary hypertension, unspecified Hyperlipidemia LDL goal <100 Other and unspecified hyperlipidemia Pill dysphagia Type 2 diabetes mellitus with hyperglycemia, without long-term current use of insulin Type 2 diabetes mellitus with hyperglycemia, without long-term current use of insulin- Primary Secondary hypertension- Primary Other secondary hypertension, unspecified Gastroesophageal reflux disease without esophagitis Esophageal reflux Type 2 diabetes mellitus with hyperglycemia, without long-term current use of insulin Hyperlipidemia LDL goal <100 Other and unspecified hyperlipidemia Hordeolum externum of left lower eyelid Upper respiratory tract infection, unspecified type- Primary 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, subsequent Class 2 severe obesity with body mass index (BMI) of 35 to 39.9 with serious comorbidity Bilateral carotid artery stenosis Occlusion and stenosis of carotid artery without mention of cerebral infarction Hyperlipidemia LDL goal <100 Other and unspecified hyperlipidemia Secondary hypertension Other secondary hypertension, unspecified Gastroesophageal reflux disease without esophagitis Esophageal reflux Type 2 diabetes mellitus with hyperglycemia, with long-term current use of insulin Abnormal urine odor- Primary Other nonspecific finding on examination of urine Acute cystitis without hematuria Secondary hypertension Other secondary hypertension, unspecified Type 2 diabetes mellitus without complication, with long-term current use of insulin (Multi) documented in this encounter [facility] Work Phone: Evaluation note* Diagnosis Type 2 diabetes mellitus with hyperglycemia, without long-term current use of insulin (Multi)- Primary documented in this encounter [facility] Work Phone: Evaluation note* Diagnosis Secondary hypertension- Primary Other secondary hypertension, unspecified Type 2 diabetes mellitus with hyperglycemia, without long-term current use of insulin (Multi) Hyperlipidemia LDL goal <100 Other and unspecified hyperlipidemia Atypical chest pain Other chest pain Class 2 severe obesity with body mass index (BMI) of 35 to 39.9 with serious comorbidity (Multi) Other elevated white blood cell (WBC) count- Primary Secondary hypertension Other secondary hypertension, unspecified Type 2 diabetes mellitus with hyperglycemia, without long-term current use of insulin (Multi) Hyperlipidemia LDL goal <100 Other and unspecified hyperlipidemia Atypical chest pain Other chest pain Pancreatic lesion (HHS-HCC) Class 1 obesity due to excess calories with serious comorbidity and body mass index (BMI) of 34.0 to 34.9 in adult Pill dysphagia- Primary Epigastric pain Abdominal pain, epigastric Type 2 diabetes mellitus with hyperglycemia, without long-term current use of insulin (Multi) Hyperlipidemia LDL goal <100- Primary Other and unspecified hyperlipidemia Pill dysphagia Vaginal yeast infection Candidiasis of vulva and vagina Hepatic steatosis Other chronic nonalcoholic liver disease Secondary hypertension Other secondary hypertension, unspecified Encounter for screening mammogram for malignant neoplasm of breast- Primary Type 2 diabetes mellitus with hyperglycemia, without long-term current use of insulin (Multi) Secondary hypertension Other secondary hypertension, unspecified Hyperlipidemia LDL goal <100 Other and unspecified hyperlipidemia Pill dysphagia Type 2 diabetes mellitus with hyperglycemia, without long-term current use of insulin (Multi) Type 2 diabetes mellitus with hyperglycemia, without long-term current use of insulin (Multi)- Primary Secondary hypertension- Primary Other secondary hypertension, unspecified Gastroesophageal reflux disease without esophagitis Esophageal reflux Type 2 diabetes mellitus with hyperglycemia, without long-term current use of insulin (Multi) Hyperlipidemia LDL goal <100 Other and unspecified hyperlipidemia Hordeolum externum of left lower eyelid documented in this encounter [facility] Work Phone: Evaluation note* Diagnosis Secondary hypertension- Primary Other secondary hypertension, unspecified Type 2 diabetes mellitus with hyperglycemia, without long-term current use of insulin (Multi) Hyperlipidemia LDL goal <100 Other and unspecified hyperlipidemia Atypical chest pain Other chest pain Class 2 severe obesity with body mass index (BMI) of 35 to 39.9 with serious comorbidity (Multi) Other elevated white blood cell (WBC) count- Primary Secondary hypertension Other secondary hypertension, unspecified Type 2 diabetes mellitus with hyperglycemia, without long-term current use of insulin (Multi) Hyperlipidemia LDL goal <100 Other and unspecified hyperlipidemia Atypical chest pain Other chest pain Pancreatic lesion (HHS-HCC) Class 1 obesity due to excess calories with serious comorbidity and body mass index (BMI) of 34.0 to 34.9 in adult Pill dysphagia- Primary Epigastric pain Abdominal pain, epigastric Type 2 diabetes mellitus with hyperglycemia, without long-term current use of insulin (Multi) Hyperlipidemia LDL goal <100- Primary Other and unspecified hyperlipidemia Pill dysphagia Vaginal yeast infection Candidiasis of vulva and vagina Hepatic steatosis Other chronic nonalcoholic liver disease Secondary hypertension Other secondary hypertension, unspecified Encounter for screening mammogram for malignant neoplasm of breast- Primary Type 2 diabetes mellitus with hyperglycemia, without long-term current use of insulin (Multi) Secondary hypertension Other secondary hypertension, unspecified Hyperlipidemia LDL goal <100 Other and unspecified hyperlipidemia Pill dysphagia Type 2 diabetes mellitus with hyperglycemia, without long-term current use of insulin (Multi) Type 2 diabetes mellitus with hyperglycemia, without long-term current use of insulin (Multi)- Primary Secondary hypertension- Primary Other secondary hypertension, unspecified Gastroesophageal reflux disease without esophagitis Esophageal reflux Type 2 diabetes mellitus with hyperglycemia, without long-term current use of insulin (Multi) Hyperlipidemia LDL goal <100 Other and unspecified hyperlipidemia Hordeolum externum of left lower eyelid Type 2 diabetes mellitus with hyperglycemia, without long-term current use of insulin (Multi) documented in this encounter [facility] Work Phone: Evaluation note* Diagnosis Secondary hypertension- Primary Other secondary hypertension, unspecified Type 2 diabetes mellitus with hyperglycemia, without long-term current use of insulin Hyperlipidemia LDL goal <100 Other and unspecified hyperlipidemia Atypical chest pain Other chest pain Class 2 severe obesity with body mass index (BMI) of 35 to 39.9 with serious comorbidity Other elevated white blood cell (WBC) count- Primary Secondary hypertension Other secondary hypertension, unspecified Type 2 diabetes mellitus with hyperglycemia, without long-term current use of insulin Hyperlipidemia LDL goal <100 Other and unspecified hyperlipidemia Atypical chest pain Other chest pain Pancreatic lesion (HHS-HCC) Class 1 obesity due to excess calories with serious comorbidity and body mass index (BMI) of 34.0 to 34.9 in adult Pill dysphagia- Primary Epigastric pain Abdominal pain, epigastric Type 2 diabetes mellitus with hyperglycemia, without long-term current use of insulin Hyperlipidemia LDL goal <100- Primary Other and unspecified hyperlipidemia Pill dysphagia Vaginal yeast infection Candidiasis of vulva and vagina Hepatic steatosis Other chronic nonalcoholic liver disease Secondary hypertension Other secondary hypertension, unspecified Encounter for screening mammogram for malignant neoplasm of breast- Primary Type 2 diabetes mellitus with hyperglycemia, without long-term current use of insulin Secondary hypertension Other secondary hypertension, unspecified Hyperlipidemia LDL goal <100 Other and unspecified hyperlipidemia Pill dysphagia Type 2 diabetes mellitus with hyperglycemia, without long-term current use of insulin Type 2 diabetes mellitus with hyperglycemia, without long-term current use of insulin- Primary Secondary hypertension- Primary Other secondary hypertension, unspecified Gastroesophageal reflux disease without esophagitis Esophageal reflux Type 2 diabetes mellitus with hyperglycemia, without long-term current use of insulin Hyperlipidemia LDL goal <100 Other and unspecified hyperlipidemia Hordeolum externum of left lower eyelid Upper respiratory tract infection, unspecified type- Primary 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, subsequent Class 2 severe obesity with body mass index (BMI) of 35 to 39.9 with serious comorbidity Bilateral carotid artery stenosis Occlusion and stenosis of carotid artery without mention of cerebral infarction Hyperlipidemia LDL goal <100 Other and unspecified hyperlipidemia Secondary hypertension Other secondary hypertension, unspecified Gastroesophageal reflux disease without esophagitis Esophageal reflux Type 2 diabetes mellitus with hyperglycemia, with long-term current use of insulin Abnormal urine odor- Primary Other nonspecific finding on examination of urine Acute cystitis without hematuria Secondary hypertension Other secondary hypertension, unspecified Type 2 diabetes mellitus without complication, with long-term current use of insulin (Multi) documented in this encounter [facility] Work Phone: Evaluation note* Diagnosis Secondary hypertension- Primary Other secondary hypertension, unspecified Type 2 diabetes mellitus with hyperglycemia, without long-term current use of insulin (Multi) Hyperlipidemia LDL goal <100 Other and unspecified hyperlipidemia Atypical chest pain Other chest pain Class 2 severe obesity with body mass index (BMI) of 35 to 39.9 with serious comorbidity (Multi) Other elevated white blood cell (WBC) count- Primary Secondary hypertension Other secondary hypertension, unspecified Type 2 diabetes mellitus with hyperglycemia, without long-term current use of insulin (Multi) Hyperlipidemia LDL goal <100 Other and unspecified hyperlipidemia Atypical chest pain Other chest pain Pancreatic lesion (HHS-HCC) Class 1 obesity due to excess calories with serious comorbidity and body mass index (BMI) of 34.0 to 34.9 in adult Pill dysphagia- Primary Epigastric pain Abdominal pain, epigastric Type 2 diabetes mellitus with hyperglycemia, without long-term current use of insulin (Multi) Hyperlipidemia LDL goal <100- Primary Other and unspecified hyperlipidemia Pill dysphagia Vaginal yeast infection Candidiasis of vulva and vagina Hepatic steatosis Other chronic nonalcoholic liver disease Secondary hypertension Other secondary hypertension, unspecified Encounter for screening mammogram for malignant neoplasm of breast- Primary Type 2 diabetes mellitus with hyperglycemia, without long-term current use of insulin (Multi) Secondary hypertension Other secondary hypertension, unspecified Hyperlipidemia LDL goal <100 Other and unspecified hyperlipidemia Pill dysphagia Type 2 diabetes mellitus with hyperglycemia, without long-term current use of insulin (Multi) Type 2 diabetes mellitus with hyperglycemia, without long-term current use of insulin (Multi)- Primary Secondary hypertension- Primary Other secondary hypertension, unspecified Gastroesophageal reflux disease without esophagitis Esophageal reflux Type 2 diabetes mellitus with hyperglycemia, without long-term current use of insulin (Multi) Hyperlipidemia LDL goal <100 Other and unspecified hyperlipidemia Hordeolum externum of left lower eyelid Type 2 diabetes mellitus with hyperglycemia, without long-term current use of insulin (Multi) documented in this encounter [facility] Work Phone: Evaluation note* Diagnosis Secondary hypertension- Primary Other secondary hypertension, unspecified Type 2 diabetes mellitus with hyperglycemia, without long-term current use of insulin Hyperlipidemia LDL goal <100 Other and unspecified hyperlipidemia Atypical chest pain Other chest pain Class 2 severe obesity with body mass index (BMI) of 35 to 39.9 with serious comorbidity Other elevated white blood cell (WBC) count- Primary Secondary hypertension Other secondary hypertension, unspecified Type 2 diabetes mellitus with hyperglycemia, without long-term current use of insulin Hyperlipidemia LDL goal <100 Other and unspecified hyperlipidemia Atypical chest pain Other chest pain Pancreatic lesion (HHS-HCC) Class 1 obesity due to excess calories with serious comorbidity and body mass index (BMI) of 34.0 to 34.9 in adult Pill dysphagia- Primary Epigastric pain Abdominal pain, epigastric Type 2 diabetes mellitus with hyperglycemia, without long-term current use of insulin Hyperlipidemia LDL goal <100- Primary Other and unspecified hyperlipidemia Pill dysphagia Vaginal yeast infection Candidiasis of vulva and vagina Hepatic steatosis Other chronic nonalcoholic liver disease Secondary hypertension Other secondary hypertension, unspecified Encounter for screening mammogram for malignant neoplasm of breast- Primary Type 2 diabetes mellitus with hyperglycemia, without long-term current use of insulin Secondary hypertension Other secondary hypertension, unspecified Hyperlipidemia LDL goal <100 Other and unspecified hyperlipidemia Pill dysphagia Type 2 diabetes mellitus with hyperglycemia, without long-term current use of insulin Type 2 diabetes mellitus with hyperglycemia, without long-term current use of insulin- Primary Secondary hypertension- Primary Other secondary hypertension, unspecified Gastroesophageal reflux disease without esophagitis Esophageal reflux Type 2 diabetes mellitus with hyperglycemia, without long-term current use of insulin Hyperlipidemia LDL goal <100 Other and unspecified hyperlipidemia Hordeolum externum of left lower eyelid Type 2 diabetes mellitus with hyperglycemia, without long-term current use of insulin documented in this encounter [facility] Work Phone: Evaluation note* Diagnosis Secondary hypertension- Primary Other secondary hypertension, unspecified Type 2 diabetes mellitus with hyperglycemia, without long-term current use of insulin Hyperlipidemia LDL goal <100 Other and unspecified hyperlipidemia Atypical chest pain Other chest pain Class 2 severe obesity with body mass index (BMI) of 35 to 39.9 with serious comorbidity Other elevated white blood cell (WBC) count- Primary Secondary hypertension Other secondary hypertension, unspecified Type 2 diabetes mellitus with hyperglycemia, without long-term current use of insulin Hyperlipidemia LDL goal <100 Other and unspecified hyperlipidemia Atypical chest pain Other chest pain Pancreatic lesion (HHS-HCC) Class 1 obesity due to excess calories with serious comorbidity and body mass index (BMI) of 34.0 to 34.9 in adult Pill dysphagia- Primary Epigastric pain Abdominal pain, epigastric Type 2 diabetes mellitus with hyperglycemia, without long-term current use of insulin Hyperlipidemia LDL goal <100- Primary Other and unspecified hyperlipidemia Pill dysphagia Vaginal yeast infection Candidiasis of vulva and vagina Hepatic steatosis Other chronic nonalcoholic liver disease Secondary hypertension Other secondary hypertension, unspecified Encounter for screening mammogram for malignant neoplasm of breast- Primary Type 2 diabetes mellitus with hyperglycemia, without long-term current use of insulin Secondary hypertension Other secondary hypertension, unspecified Hyperlipidemia LDL goal <100 Other and unspecified hyperlipidemia Pill dysphagia Type 2 diabetes mellitus with hyperglycemia, without long-term current use of insulin Type 2 diabetes mellitus with hyperglycemia, without long-term current use of insulin- Primary Secondary hypertension- Primary Other secondary hypertension, unspecified Gastroesophageal reflux disease without esophagitis Esophageal reflux Type 2 diabetes mellitus with hyperglycemia, without long-term current use of insulin Hyperlipidemia LDL goal <100 Other and unspecified hyperlipidemia Hordeolum externum of left lower eyelid Upper respiratory tract infection, unspecified type- Primary 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, subsequent Class 2 severe obesity with body mass index (BMI) of 35 to 39.9 with serious comorbidity Bilateral carotid artery stenosis Occlusion and stenosis of carotid artery without mention of cerebral infarction Hyperlipidemia LDL goal <100 Other and unspecified hyperlipidemia Secondary hypertension Other secondary hypertension, unspecified Gastroesophageal reflux disease without esophagitis Esophageal reflux Type 2 diabetes mellitus with hyperglycemia, with long-term current use of insulin Abnormal urine odor- Primary Other nonspecific finding on examination of urine Acute cystitis without hematuria Secondary hypertension Other secondary hypertension, unspecified Type 2 diabetes mellitus without complication, with long-term current use of insulin (Multi) documented in this encounter [facility] Work Phone: Evaluation note* Diagnosis Secondary hypertension- Primary Other secondary hypertension, unspecified Type 2 diabetes mellitus with hyperglycemia, without long-term current use of insulin Hyperlipidemia LDL goal <100 Other and unspecified hyperlipidemia Atypical chest pain Other chest pain Class 2 severe obesity with body mass index (BMI) of 35 to 39.9 with serious comorbidity Other elevated white blood cell (WBC) count- Primary Secondary hypertension Other secondary hypertension, unspecified Type 2 diabetes mellitus with hyperglycemia, without long-term current use of insulin Hyperlipidemia LDL goal <100 Other and unspecified hyperlipidemia Atypical chest pain Other chest pain Pancreatic lesion (HHS-HCC) Class 1 obesity due to excess calories with serious comorbidity and body mass index (BMI) of 34.0 to 34.9 in adult Pill dysphagia- Primary Epigastric pain Abdominal pain, epigastric Type 2 diabetes mellitus with hyperglycemia, without long-term current use of insulin Hyperlipidemia LDL goal <100- Primary Other and unspecified hyperlipidemia Pill dysphagia Vaginal yeast infection Candidiasis of vulva and vagina Hepatic steatosis Other chronic nonalcoholic liver disease Secondary hypertension Other secondary hypertension, unspecified Encounter for screening mammogram for malignant neoplasm of breast- Primary Type 2 diabetes mellitus with hyperglycemia, without long-term current use of insulin Secondary hypertension Other secondary hypertension, unspecified Hyperlipidemia LDL goal <100 Other and unspecified hyperlipidemia Pill dysphagia Type 2 diabetes mellitus with hyperglycemia, without long-term current use of insulin Type 2 diabetes mellitus with hyperglycemia, without long-term current use of insulin- Primary Secondary hypertension- Primary Other secondary hypertension, unspecified Gastroesophageal reflux disease without esophagitis Esophageal reflux Type 2 diabetes mellitus with hyperglycemia, without long-term current use of insulin Hyperlipidemia LDL goal <100 Other and unspecified hyperlipidemia Hordeolum externum of left lower eyelid Upper respiratory tract infection, unspecified type- Primary 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, subsequent Class 2 severe obesity with body mass index (BMI) of 35 to 39.9 with serious comorbidity Bilateral carotid artery stenosis Occlusion and stenosis of carotid artery without mention of cerebral infarction Hyperlipidemia LDL goal <100 Other and unspecified hyperlipidemia Secondary hypertension Other secondary hypertension, unspecified Gastroesophageal reflux disease without esophagitis Esophageal reflux Type 2 diabetes mellitus with hyperglycemia, with long-term current use of insulin Abnormal urine odor- Primary Other nonspecific finding on examination of urine Acute cystitis without hematuria Secondary hypertension Other secondary hypertension, unspecified Type 2 diabetes mellitus without complication, with long-term current use of insulin (Multi) Type 2 diabetes mellitus with hyperglycemia, without long-term current use of insulin documented in this encounter [facility] Work Phone: Evaluation note* Diagnosis Secondary hypertension- Primary Other secondary hypertension, unspecified Type 2 diabetes mellitus with hyperglycemia, without long-term current use of insulin Hyperlipidemia LDL goal <100 Other and unspecified hyperlipidemia Atypical chest pain Other chest pain Class 2 severe obesity with body mass index (BMI) of 35 to 39.9 with serious comorbidity Other elevated white blood cell (WBC) count- Primary Secondary hypertension Other secondary hypertension, unspecified Type 2 diabetes mellitus with hyperglycemia, without long-term current use of insulin Hyperlipidemia LDL goal <100 Other and unspecified hyperlipidemia Atypical chest pain Other chest pain Pancreatic lesion (HHS-HCC) Class 1 obesity due to excess calories with serious comorbidity and body mass index (BMI) of 34.0 to 34.9 in adult Pill dysphagia- Primary Epigastric pain Abdominal pain, epigastric Type 2 diabetes mellitus with hyperglycemia, without long-term current use of insulin Hyperlipidemia LDL goal <100- Primary Other and unspecified hyperlipidemia Pill dysphagia Vaginal yeast infection Candidiasis of vulva and vagina Hepatic steatosis Other chronic nonalcoholic liver disease Secondary hypertension Other secondary hypertension, unspecified Encounter for screening mammogram for malignant neoplasm of breast- Primary Type 2 diabetes mellitus with hyperglycemia, without long-term current use of insulin Secondary hypertension Other secondary hypertension, unspecified Hyperlipidemia LDL goal <100 Other and unspecified hyperlipidemia Pill dysphagia Type 2 diabetes mellitus with hyperglycemia, without long-term current use of insulin Type 2 diabetes mellitus with hyperglycemia, without long-term current use of insulin- Primary Secondary hypertension- Primary Other secondary hypertension, unspecified Gastroesophageal reflux disease without esophagitis Esophageal reflux Type 2 diabetes mellitus with hyperglycemia, without long-term current use of insulin Hyperlipidemia LDL goal <100 Other and unspecified hyperlipidemia Hordeolum externum of left lower eyelid Upper respiratory tract infection, unspecified type- Primary 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, subsequent Class 2 severe obesity with body mass index (BMI) of 35 to 39.9 with serious comorbidity Bilateral carotid artery stenosis Occlusion and stenosis of carotid artery without mention of cerebral infarction Hyperlipidemia LDL goal <100 Other and unspecified hyperlipidemia Secondary hypertension Other secondary hypertension, unspecified Gastroesophageal reflux disease without esophagitis Esophageal reflux Type 2 diabetes mellitus with hyperglycemia, with long-term current use of insulin Abnormal urine odor- Primary Other nonspecific finding on examination of urine Acute cystitis without hematuria Secondary hypertension Other secondary hypertension, unspecified Type 2 diabetes mellitus without complication, with long-term current use of insulin (Multi) Type 2 diabetes mellitus with hyperglycemia, without long-term current use of insulin documented in this encounter [facility] Work Phone: Evaluation note* Diagnosis Secondary hypertension- Primary Other secondary hypertension, unspecified Type 2 diabetes mellitus with hyperglycemia, without long-term current use of insulin Hyperlipidemia LDL goal <100 Other and unspecified hyperlipidemia Atypical chest pain Other chest pain Class 2 severe obesity with body mass index (BMI) of 35 to 39.9 with serious comorbidity Other elevated white blood cell (WBC) count- Primary Secondary hypertension Other secondary hypertension, unspecified Type 2 diabetes mellitus with hyperglycemia, without long-term current use of insulin Hyperlipidemia LDL goal <100 Other and unspecified hyperlipidemia Atypical chest pain Other chest pain Pancreatic lesion (HHS-HCC) Class 1 obesity due to excess calories with serious comorbidity and body mass index (BMI) of 34.0 to 34.9 in adult Pill dysphagia- Primary Epigastric pain Abdominal pain, epigastric Type 2 diabetes mellitus with hyperglycemia, without long-term current use of insulin Hyperlipidemia LDL goal <100- Primary Other and unspecified hyperlipidemia Pill dysphagia Vaginal yeast infection Candidiasis of vulva and vagina Hepatic steatosis Other chronic nonalcoholic liver disease Secondary hypertension Other secondary hypertension, unspecified Encounter for screening mammogram for malignant neoplasm of breast- Primary Type 2 diabetes mellitus with hyperglycemia, without long-term current use of insulin Secondary hypertension Other secondary hypertension, unspecified Hyperlipidemia LDL goal <100 Other and unspecified hyperlipidemia Pill dysphagia Type 2 diabetes mellitus with hyperglycemia, without long-term current use of insulin Type 2 diabetes mellitus with hyperglycemia, without long-term current use of insulin- Primary Secondary hypertension- Primary Other secondary hypertension, unspecified Gastroesophageal reflux disease without esophagitis Esophageal reflux Type 2 diabetes mellitus with hyperglycemia, without long-term current use of insulin Hyperlipidemia LDL goal <100 Other and unspecified hyperlipidemia Hordeolum externum of left lower eyelid Upper respiratory tract infection, unspecified type- Primary 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, subsequent Class 2 severe obesity with body mass index (BMI) of 35 to 39.9 with serious comorbidity Bilateral carotid artery stenosis Occlusion and stenosis of carotid artery without mention of cerebral infarction Hyperlipidemia LDL goal <100 Other and unspecified hyperlipidemia Secondary hypertension Other secondary hypertension, unspecified Gastroesophageal reflux disease without esophagitis Esophageal reflux Type 2 diabetes mellitus with hyperglycemia, with long-term current use of insulin Abnormal urine odor- Primary Other nonspecific finding on examination of urine Acute cystitis without hematuria Secondary hypertension Other secondary hypertension, unspecified Type 2 diabetes mellitus without complication, with long-term current use of insulin (Multi) documented in this encounter [facility] Work Phone: Evaluation note* Diagnosis Secondary hypertension- Primary Other secondary hypertension, unspecified Type 2 diabetes mellitus with hyperglycemia, without long-term current use of insulin Hyperlipidemia LDL goal <100 Other and unspecified hyperlipidemia Atypical chest pain Other chest pain Class 2 severe obesity with body mass index (BMI) of 35 to 39.9 with serious comorbidity Other elevated white blood cell (WBC) count- Primary Secondary hypertension Other secondary hypertension, unspecified Type 2 diabetes mellitus with hyperglycemia, without long-term current use of insulin Hyperlipidemia LDL goal <100 Other and unspecified hyperlipidemia Atypical chest pain Other chest pain Pancreatic lesion (HHS-HCC) Class 1 obesity due to excess calories with serious comorbidity and body mass index (BMI) of 34.0 to 34.9 in adult Pill dysphagia- Primary Epigastric pain Abdominal pain, epigastric Type 2 diabetes mellitus with hyperglycemia, without long-term current use of insulin Hyperlipidemia LDL goal <100- Primary Other and unspecified hyperlipidemia Pill dysphagia Vaginal yeast infection Candidiasis of vulva and vagina Hepatic steatosis Other chronic nonalcoholic liver disease Secondary hypertension Other secondary hypertension, unspecified Encounter for screening mammogram for malignant neoplasm of breast- Primary Type 2 diabetes mellitus with hyperglycemia, without long-term current use of insulin Secondary hypertension Other secondary hypertension, unspecified Hyperlipidemia LDL goal <100 Other and unspecified hyperlipidemia Pill dysphagia Type 2 diabetes mellitus with hyperglycemia, without long-term current use of insulin Type 2 diabetes mellitus with hyperglycemia, without long-term current use of insulin- Primary Secondary hypertension- Primary Other secondary hypertension, unspecified Gastroesophageal reflux disease without esophagitis Esophageal reflux Type 2 diabetes mellitus with hyperglycemia, without long-term current use of insulin Hyperlipidemia LDL goal <100 Other and unspecified hyperlipidemia Hordeolum externum of left lower eyelid Upper respiratory tract infection, unspecified type- Primary 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, subsequent Class 2 severe obesity with body mass index (BMI) of 35 to 39.9 with serious comorbidity Bilateral carotid artery stenosis Occlusion and stenosis of carotid artery without mention of cerebral infarction Hyperlipidemia LDL goal <100 Other and unspecified hyperlipidemia Secondary hypertension Other secondary hypertension, unspecified Gastroesophageal reflux disease without esophagitis Esophageal reflux Type 2 diabetes mellitus with hyperglycemia, with long-term current use of insulin Abnormal urine odor- Primary Other nonspecific finding on examination of urine Acute cystitis without hematuria Secondary hypertension Other secondary hypertension, unspecified Pill dysphagia- Primary Secondary hypertension Other secondary hypertension, unspecified Type 2 diabetes mellitus with hyperglycemia, without long-term current use of insulin Hyperlipidemia LDL goal <100 Other and unspecified hyperlipidemia Gastroesophageal reflux disease without esophagitis Esophageal reflux Class 2 severe obesity with body mass index (BMI) of 35 to 39.9 with serious comorbidity Bilateral carotid artery stenosis Occlusion and stenosis of carotid artery without mention of cerebral infarction documented in this encounter [facility] Work Phone: Evaluation note* Diagnosis Secondary hypertension- Primary Other secondary hypertension, unspecified Type 2 diabetes mellitus with hyperglycemia, without long-term current use of insulin Hyperlipidemia LDL goal <100 Other and unspecified hyperlipidemia Atypical chest pain Other chest pain Class 2 severe obesity with body mass index (BMI) of 35 to 39.9 with serious comorbidity Other elevated white blood cell (WBC) count- Primary Secondary hypertension Other secondary hypertension, unspecified Type 2 diabetes mellitus with hyperglycemia, without long-term current use of insulin Hyperlipidemia LDL goal <100 Other and unspecified hyperlipidemia Atypical chest pain Other chest pain Pancreatic lesion (HHS-HCC) Class 1 obesity due to excess calories with serious comorbidity and body mass index (BMI) of 34.0 to 34.9 in adult Pill dysphagia- Primary Epigastric pain Abdominal pain, epigastric Type 2 diabetes mellitus with hyperglycemia, without long-term current use of insulin Hyperlipidemia LDL goal <100- Primary Other and unspecified hyperlipidemia Pill dysphagia Vaginal yeast infection Candidiasis of vulva and vagina Hepatic steatosis Other chronic nonalcoholic liver disease Secondary hypertension Other secondary hypertension, unspecified Encounter for screening mammogram for malignant neoplasm of breast- Primary Type 2 diabetes mellitus with hyperglycemia, without long-term current use of insulin Secondary hypertension Other secondary hypertension, unspecified Hyperlipidemia LDL goal <100 Other and unspecified hyperlipidemia Pill dysphagia Type 2 diabetes mellitus with hyperglycemia, without long-term current use of insulin Type 2 diabetes mellitus with hyperglycemia, without long-term current use of insulin- Primary Secondary hypertension- Primary Other secondary hypertension, unspecified Gastroesophageal reflux disease without esophagitis Esophageal reflux Type 2 diabetes mellitus with hyperglycemia, without long-term current use of insulin Hyperlipidemia LDL goal <100 Other and unspecified hyperlipidemia Hordeolum externum of left lower eyelid Upper respiratory tract infection, unspecified type- Primary 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, subsequent Class 2 severe obesity with body mass index (BMI) of 35 to 39.9 with serious comorbidity Bilateral carotid artery stenosis Occlusion and stenosis of carotid artery without mention of cerebral infarction Hyperlipidemia LDL goal <100 Other and unspecified hyperlipidemia Secondary hypertension Other secondary hypertension, unspecified Gastroesophageal reflux disease without esophagitis Esophageal reflux Type 2 diabetes mellitus with hyperglycemia, with long-term current use of insulin Abnormal urine odor- Primary Other nonspecific finding on examination of urine Acute cystitis without hematuria Secondary hypertension Other secondary hypertension, unspecified Pill dysphagia- Primary Secondary hypertension Other secondary hypertension, unspecified Type 2 diabetes mellitus with hyperglycemia, without long-term current use of insulin Hyperlipidemia LDL goal <100 Other and unspecified hyperlipidemia Gastroesophageal reflux disease without esophagitis Esophageal reflux Class 2 severe obesity with body mass index (BMI) of 35 to 39.9 with serious comorbidity Bilateral carotid artery stenosis Occlusion and stenosis of carotid artery without mention of cerebral infarction Type 2 diabetes mellitus without complication, with long-term current use of insulin (Multi) documented in this encounter [facility] Work Phone: Evaluation note* Diagnosis Secondary hypertension- Primary Other secondary hypertension, unspecified Type 2 diabetes mellitus with hyperglycemia, without long-term current use of insulin Hyperlipidemia LDL goal <100 Other and unspecified hyperlipidemia Atypical chest pain Other chest pain Class 2 severe obesity with body mass index (BMI) of 35 to 39.9 with serious comorbidity Other elevated white blood cell (WBC) count- Primary Secondary hypertension Other secondary hypertension, unspecified Type 2 diabetes mellitus with hyperglycemia, without long-term current use of insulin Hyperlipidemia LDL goal <100 Other and unspecified hyperlipidemia Atypical chest pain Other chest pain Pancreatic lesion (HHS-HCC) Class 1 obesity due to excess calories with serious comorbidity and body mass index (BMI) of 34.0 to 34.9 in adult Pill dysphagia- Primary Epigastric pain Abdominal pain, epigastric Type 2 diabetes mellitus with hyperglycemia, without long-term current use of insulin Hyperlipidemia LDL goal <100- Primary Other and unspecified hyperlipidemia Pill dysphagia Vaginal yeast infection Candidiasis of vulva and vagina Hepatic steatosis Other chronic nonalcoholic liver disease Secondary hypertension Other secondary hypertension, unspecified Encounter for screening mammogram for malignant neoplasm of breast- Primary Type 2 diabetes mellitus with hyperglycemia, without long-term current use of insulin Secondary hypertension Other secondary hypertension, unspecified Hyperlipidemia LDL goal <100 Other and unspecified hyperlipidemia Pill dysphagia Type 2 diabetes mellitus with hyperglycemia, without long-term current use of insulin Type 2 diabetes mellitus with hyperglycemia, without long-term current use of insulin- Primary Secondary hypertension- Primary Other secondary hypertension, unspecified Gastroesophageal reflux disease without esophagitis Esophageal reflux Type 2 diabetes mellitus with hyperglycemia, without long-term current use of insulin Hyperlipidemia LDL goal <100 Other and unspecified hyperlipidemia Hordeolum externum of left lower eyelid Upper respiratory tract infection, unspecified type- Primary 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, subsequent Class 2 severe obesity with body mass index (BMI) of 35 to 39.9 with serious comorbidity Bilateral carotid artery stenosis Occlusion and stenosis of carotid artery without mention of cerebral infarction Hyperlipidemia LDL goal <100 Other and unspecified hyperlipidemia Secondary hypertension Other secondary hypertension, unspecified Gastroesophageal reflux disease without esophagitis Esophageal reflux Type 2 diabetes mellitus with hyperglycemia, with long-term current use of insulin Abnormal urine odor- Primary Other nonspecific finding on examination of urine Acute cystitis without hematuria Secondary hypertension Other secondary hypertension, unspecified Pill dysphagia- Primary Secondary hypertension Other secondary hypertension, unspecified Type 2 diabetes mellitus with hyperglycemia, without long-term current use of insulin Hyperlipidemia LDL goal <100 Other and unspecified hyperlipidemia Gastroesophageal reflux disease without esophagitis Esophageal reflux Class 2 severe obesity with body mass index (BMI) of 35 to 39.9 with serious comorbidity Bilateral carotid artery stenosis Occlusion and stenosis of carotid artery without mention of cerebral infarction Type 2 diabetes mellitus without complication, with long-term current use of insulin (Multi) documented in this encounter [facility] Work Phone: Evaluation note* Diagnosis Secondary hypertension- Primary Other secondary hypertension, unspecified Type 2 diabetes mellitus with hyperglycemia, without long-term current use of insulin Hyperlipidemia LDL goal <100 Other and unspecified hyperlipidemia Atypical chest pain Other chest pain Class 2 severe obesity with body mass index (BMI) of 35 to 39.9 with serious comorbidity Other elevated white blood cell (WBC) count- Primary Secondary hypertension Other secondary hypertension, unspecified Type 2 diabetes mellitus with hyperglycemia, without long-term current use of insulin Hyperlipidemia LDL goal <100 Other and unspecified hyperlipidemia Atypical chest pain Other chest pain Pancreatic lesion (HHS-HCC) Class 1 obesity due to excess calories with serious comorbidity and body mass index (BMI) of 34.0 to 34.9 in adult Pill dysphagia- Primary Epigastric pain Abdominal pain, epigastric Type 2 diabetes mellitus with hyperglycemia, without long-term current use of insulin Hyperlipidemia LDL goal <100- Primary Other and unspecified hyperlipidemia Pill dysphagia Vaginal yeast infection Candidiasis of vulva and vagina Hepatic steatosis Other chronic nonalcoholic liver disease Secondary hypertension Other secondary hypertension, unspecified Encounter for screening mammogram for malignant neoplasm of breast- Primary Type 2 diabetes mellitus with hyperglycemia, without long-term current use of insulin Secondary hypertension Other secondary hypertension, unspecified Hyperlipidemia LDL goal <100 Other and unspecified hyperlipidemia Pill dysphagia Type 2 diabetes mellitus with hyperglycemia, without long-term current use of insulin Type 2 diabetes mellitus with hyperglycemia, without long-term current use of insulin- Primary Secondary hypertension- Primary Other secondary hypertension, unspecified Gastroesophageal reflux disease without esophagitis Esophageal reflux Type 2 diabetes mellitus with hyperglycemia, without long-term current use of insulin Hyperlipidemia LDL goal <100 Other and unspecified hyperlipidemia Hordeolum externum of left lower eyelid Upper respiratory tract infection, unspecified type- Primary 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, subsequent Class 2 severe obesity with body mass index (BMI) of 35 to 39.9 with serious comorbidity Bilateral carotid artery stenosis Occlusion and stenosis of carotid artery without mention of cerebral infarction Hyperlipidemia LDL goal <100 Other and unspecified hyperlipidemia Secondary hypertension Other secondary hypertension, unspecified Gastroesophageal reflux disease without esophagitis Esophageal reflux Type 2 diabetes mellitus with hyperglycemia, with long-term current use of insulin Abnormal urine odor- Primary Other nonspecific finding on examination of urine Acute cystitis without hematuria Secondary hypertension Other secondary hypertension, unspecified Pill dysphagia- Primary Secondary hypertension Other secondary hypertension, unspecified Type 2 diabetes mellitus with hyperglycemia, without long-term current use of insulin Hyperlipidemia LDL goal <100 Other and unspecified hyperlipidemia Gastroesophageal reflux disease without esophagitis Esophageal reflux Class 2 severe obesity with body mass index (BMI) of 35 to 39.9 with serious comorbidity Bilateral carotid artery stenosis Occlusion and stenosis of carotid artery without mention of cerebral infarction Acute non-recurrent maxillary sinusitis- Primary Encounter for screening mammogram for malignant neoplasm of breast documented in this encounter [facility] Work Phone: Evaluation note* Diagnosis Secondary hypertension- Primary Other secondary hypertension, unspecified Type 2 diabetes mellitus with hyperglycemia, without long-term current use of insulin Hyperlipidemia LDL goal <100 Other and unspecified hyperlipidemia Atypical chest pain Other chest pain Class 2 severe obesity with body mass index (BMI) of 35 to 39.9 with serious comorbidity Other elevated white blood cell (WBC) count- Primary Secondary hypertension Other secondary hypertension, unspecified Type 2 diabetes mellitus with hyperglycemia, without long-term current use of insulin Hyperlipidemia LDL goal <100 Other and unspecified hyperlipidemia Atypical chest pain Other chest pain Pancreatic lesion (HHS-HCC) Class 1 obesity due to excess calories with serious comorbidity and body mass index (BMI) of 34.0 to 34.9 in adult Pill dysphagia- Primary Epigastric pain Abdominal pain, epigastric Type 2 diabetes mellitus with hyperglycemia, without long-term current use of insulin Hyperlipidemia LDL goal <100- Primary Other and unspecified hyperlipidemia Pill dysphagia Vaginal yeast infection Candidiasis of vulva and vagina Hepatic steatosis Other chronic nonalcoholic liver disease Secondary hypertension Other secondary hypertension, unspecified Encounter for screening mammogram for malignant neoplasm of breast- Primary Type 2 diabetes mellitus with hyperglycemia, without long-term current use of insulin Secondary hypertension Other secondary hypertension, unspecified Hyperlipidemia LDL goal <100 Other and unspecified hyperlipidemia Pill dysphagia Type 2 diabetes mellitus with hyperglycemia, without long-term current use of insulin Type 2 diabetes mellitus with hyperglycemia, without long-term current use of insulin- Primary Secondary hypertension- Primary Other secondary hypertension, unspecified Gastroesophageal reflux disease without esophagitis Esophageal reflux Type 2 diabetes mellitus with hyperglycemia, without long-term current use of insulin Hyperlipidemia LDL goal <100 Other and unspecified hyperlipidemia Hordeolum externum of left lower eyelid Upper respiratory tract infection, unspecified type- Primary 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, subsequent Class 2 severe obesity with body mass index (BMI) of 35 to 39.9 with serious comorbidity Bilateral carotid artery stenosis Occlusion and stenosis of carotid artery without mention of cerebral infarction Hyperlipidemia LDL goal <100 Other and unspecified hyperlipidemia Secondary hypertension Other secondary hypertension, unspecified Gastroesophageal reflux disease without esophagitis Esophageal reflux Type 2 diabetes mellitus with hyperglycemia, with long-term current use of insulin Abnormal urine odor- Primary Other nonspecific finding on examination of urine Acute cystitis without hematuria Secondary hypertension Other secondary hypertension, unspecified Pill dysphagia- Primary Secondary hypertension Other secondary hypertension, unspecified Type 2 diabetes mellitus with hyperglycemia, without long-term current use of insulin Hyperlipidemia LDL goal <100 Other and unspecified hyperlipidemia Gastroesophageal reflux disease without esophagitis Esophageal reflux Class 2 severe obesity with body mass index (BMI) of 35 to 39.9 with serious comorbidity Bilateral carotid artery stenosis Occlusion and stenosis of carotid artery without mention of cerebral infarction Acute non-recurrent maxillary sinusitis- Primary Encounter for screening mammogram for malignant neoplasm of breast Type 2 diabetes mellitus without complication, with long-term current use of insulin documented in this encounter [facility] Work Phone: Evaluation note* Diagnosis Secondary hypertension- Primary Other secondary hypertension, unspecified Type 2 diabetes mellitus with hyperglycemia, without long-term current use of insulin Hyperlipidemia LDL goal <100 Other and unspecified hyperlipidemia Atypical chest pain Other chest pain Class 2 severe obesity with body mass index (BMI) of 35 to 39.9 with serious comorbidity Other elevated white blood cell (WBC) count- Primary Secondary hypertension Other secondary hypertension, unspecified Type 2 diabetes mellitus with hyperglycemia, without long-term current use of insulin Hyperlipidemia LDL goal <100 Other and unspecified hyperlipidemia Atypical chest pain Other chest pain Pancreatic lesion (HHS-HCC) Class 1 obesity due to excess calories with serious comorbidity and body mass index (BMI) of 34.0 to 34.9 in adult Pill dysphagia- Primary Epigastric pain Abdominal pain, epigastric Type 2 diabetes mellitus with hyperglycemia, without long-term current use of insulin Hyperlipidemia LDL goal <100- Primary Other and unspecified hyperlipidemia Pill dysphagia Vaginal yeast infection Candidiasis of vulva and vagina Hepatic steatosis Other chronic nonalcoholic liver disease Secondary hypertension Other secondary hypertension, unspecified Encounter for screening mammogram for malignant neoplasm of breast- Primary Type 2 diabetes mellitus with hyperglycemia, without long-term current use of insulin Secondary hypertension Other secondary hypertension, unspecified Hyperlipidemia LDL goal <100 Other and unspecified hyperlipidemia Pill dysphagia Type 2 diabetes mellitus with hyperglycemia, without long-term current use of insulin Type 2 diabetes mellitus with hyperglycemia, without long-term current use of insulin- Primary Secondary hypertension- Primary Other secondary hypertension, unspecified Gastroesophageal reflux disease without esophagitis Esophageal reflux Type 2 diabetes mellitus with hyperglycemia, without long-term current use of insulin Hyperlipidemia LDL goal <100 Other and unspecified hyperlipidemia Hordeolum externum of left lower eyelid Upper respiratory tract infection, unspecified type- Primary 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, subsequent Class 2 severe obesity with body mass index (BMI) of 35 to 39.9 with serious comorbidity Bilateral carotid artery stenosis Occlusion and stenosis of carotid artery without mention of cerebral infarction Hyperlipidemia LDL goal <100 Other and unspecified hyperlipidemia Secondary hypertension Other secondary hypertension, unspecified Gastroesophageal reflux disease without esophagitis Esophageal reflux Type 2 diabetes mellitus with hyperglycemia, with long-term current use of insulin Abnormal urine odor- Primary Other nonspecific finding on examination of urine Acute cystitis without hematuria Secondary hypertension Other secondary hypertension, unspecified Pill dysphagia- Primary Secondary hypertension Other secondary hypertension, unspecified Type 2 diabetes mellitus with hyperglycemia, without long-term current use of insulin Hyperlipidemia LDL goal <100 Other and unspecified hyperlipidemia Gastroesophageal reflux disease without esophagitis Esophageal reflux Class 2 severe obesity with body mass index (BMI) of 35 to 39.9 with serious comorbidity Bilateral carotid artery stenosis Occlusion and stenosis of carotid artery without mention of cerebral infarction Acute non-recurrent maxillary sinusitis- Primary Encounter for screening mammogram for malignant neoplasm of breast Type 2 diabetes mellitus without complication, with long-term current use of insulin documented in this encounter [facility] Work Phone: Evaluation note* Diagnosis Secondary hypertension- Primary Other secondary hypertension, unspecified Type 2 diabetes mellitus with hyperglycemia, without long-term current use of insulin Hyperlipidemia LDL goal <100 Other and unspecified hyperlipidemia Atypical chest pain Other chest pain Class 2 severe obesity with body mass index (BMI) of 35 to 39.9 with serious comorbidity Other elevated white blood cell (WBC) count- Primary Secondary hypertension Other secondary hypertension, unspecified Type 2 diabetes mellitus with hyperglycemia, without long-term current use of insulin Hyperlipidemia LDL goal <100 Other and unspecified hyperlipidemia Atypical chest pain Other chest pain Pancreatic lesion (HHS-HCC) Class 1 obesity due to excess calories with serious comorbidity and body mass index (BMI) of 34.0 to 34.9 in adult Pill dysphagia- Primary Epigastric pain Abdominal pain, epigastric Type 2 diabetes mellitus with hyperglycemia, without long-term current use of insulin Hyperlipidemia LDL goal <100- Primary Other and unspecified hyperlipidemia Pill dysphagia Vaginal yeast infection Candidiasis of vulva and vagina Hepatic steatosis Other chronic nonalcoholic liver disease Secondary hypertension Other secondary hypertension, unspecified Encounter for screening mammogram for malignant neoplasm of breast- Primary Type 2 diabetes mellitus with hyperglycemia, without long-term current use of insulin Secondary hypertension Other secondary hypertension, unspecified Hyperlipidemia LDL goal <100 Other and unspecified hyperlipidemia Pill dysphagia Type 2 diabetes mellitus with hyperglycemia, without long-term current use of insulin Type 2 diabetes mellitus with hyperglycemia, without long-term current use of insulin- Primary Secondary hypertension- Primary Other secondary hypertension, unspecified Gastroesophageal reflux disease without esophagitis Esophageal reflux Type 2 diabetes mellitus with hyperglycemia, without long-term current use of insulin Hyperlipidemia LDL goal <100 Other and unspecified hyperlipidemia Hordeolum externum of left lower eyelid Upper respiratory tract infection, unspecified type- Primary 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, 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 Class 2 severe obesity with body mass index (BMI) of 35 to 39.9 with serious comorbidity Bilateral carotid artery stenosis Occlusion and stenosis of carotid artery without mention of cerebral infarction Hyperlipidemia LDL goal <100 Other and unspecified hyperlipidemia Secondary hypertension Other secondary hypertension, unspecified Gastroesophageal reflux disease without esophagitis Esophageal reflux Type 2 diabetes mellitus with hyperglycemia, with long-term current use of insulin Abnormal urine odor- Primary Other nonspecific finding on examination of urine Acute cystitis without hematuria Secondary hypertension Other secondary hypertension, unspecified Pill dysphagia- Primary Secondary hypertension Other secondary hypertension, unspecified Type 2 diabetes mellitus with hyperglycemia, without long-term current use of insulin Hyperlipidemia LDL goal <100 Other and unspecified hyperlipidemia Gastroesophageal reflux disease without esophagitis Esophageal reflux Class 2 severe obesity with body mass index (BMI) of 35 to 39.9 with serious comorbidity Bilateral carotid artery stenosis Occlusion and stenosis of carotid artery without mention of cerebral infarction Vitamin D deficiency- Primary Secondary hypertension Other secondary hypertension, unspecified Type 2 diabetes mellitus without complication, with long-term current use of insulin Gastroesophageal reflux disease without esophagitis Esophageal reflux Type 2 diabetes mellitus with hyperglycemia, without long-term current use of insulin Hyperlipidemia LDL goal <100 Other and unspecified hyperlipidemia documented in this encounter [facility] Work Phone: Evaluation note* Diagnosis Secondary hypertension- Primary Other secondary hypertension, unspecified Type 2 diabetes mellitus with hyperglycemia, without long-term current use of insulin Hyperlipidemia LDL goal <100 Other and unspecified hyperlipidemia Atypical chest pain Other chest pain Class 2 severe obesity with body mass index (BMI) of 35 to 39.9 with serious comorbidity Other elevated white blood cell (WBC) count- Primary Secondary hypertension Other secondary hypertension, unspecified Type 2 diabetes mellitus with hyperglycemia, without long-term current use of insulin Hyperlipidemia LDL goal <100 Other and unspecified hyperlipidemia Atypical chest pain Other chest pain Pancreatic lesion (HHS-HCC) Class 1 obesity due to excess calories with serious comorbidity and body mass index (BMI) of 34.0 to 34.9 in adult Pill dysphagia- Primary Epigastric pain Abdominal pain, epigastric Type 2 diabetes mellitus with hyperglycemia, without long-term current use of insulin Hyperlipidemia LDL goal <100- Primary Other and unspecified hyperlipidemia Pill dysphagia Vaginal yeast infection Candidiasis of vulva and vagina Hepatic steatosis Other chronic nonalcoholic liver disease Secondary hypertension Other secondary hypertension, unspecified Encounter for screening mammogram for malignant neoplasm of breast- Primary Type 2 diabetes mellitus with hyperglycemia, without long-term current use of insulin Secondary hypertension Other secondary hypertension, unspecified Hyperlipidemia LDL goal <100 Other and unspecified hyperlipidemia Pill dysphagia Type 2 diabetes mellitus with hyperglycemia, without long-term current use of insulin Type 2 diabetes mellitus with hyperglycemia, without long-term current use of insulin- Primary Secondary hypertension- Primary Other secondary hypertension, unspecified Gastroesophageal reflux disease without esophagitis Esophageal reflux Type 2 diabetes mellitus with hyperglycemia, without long-term current use of insulin Hyperlipidemia LDL goal <100 Other and unspecified hyperlipidemia Hordeolum externum of left lower eyelid Upper respiratory tract infection, unspecified type- Primary 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, subsequent Class 2 severe obesity with body mass index (BMI) of 35 to 39.9 with serious comorbidity Bilateral carotid artery stenosis Occlusion and stenosis of carotid artery without mention of cerebral infarction Hyperlipidemia LDL goal <100 Other and unspecified hyperlipidemia Secondary hypertension Other secondary hypertension, unspecified Gastroesophageal reflux disease without esophagitis Esophageal reflux Type 2 diabetes mellitus with hyperglycemia, with long-term current use of insulin Abnormal urine odor- Primary Other nonspecific finding on examination of urine Acute cystitis without hematuria Secondary hypertension Other secondary hypertension, unspecified Pill dysphagia- Primary Secondary hypertension Other secondary hypertension, unspecified Type 2 diabetes mellitus with hyperglycemia, without long-term current use of insulin Hyperlipidemia LDL goal <100 Other and unspecified hyperlipidemia Gastroesophageal reflux disease without esophagitis Esophageal reflux Class 2 severe obesity with body mass index (BMI) of 35 to 39.9 with serious comorbidity Bilateral carotid artery stenosis Occlusion and stenosis of carotid artery without mention of cerebral infarction Vitamin D deficiency- Primary Secondary hypertension Other secondary hypertension, unspecified Type 2 diabetes mellitus without complication, with long-term current use of insulin Gastroesophageal reflux disease without esophagitis Esophageal reflux Type 2 diabetes mellitus with hyperglycemia, without long-term current use of insulin Hyperlipidemia LDL goal <100 Other and unspecified hyperlipidemia Type 2 diabetes mellitus with hyperglycemia, without long-term current use of insulin- Primary documented in this encounter [facility] Work Phone: Evaluation note* Diagnosis Secondary hypertension- Primary Other secondary hypertension, unspecified Type 2 diabetes mellitus with hyperglycemia, without long-term current use of insulin Hyperlipidemia LDL goal <100 Other and unspecified hyperlipidemia Atypical chest pain Other chest pain Class 2 severe obesity with body mass index (BMI) of 35 to 39.9 with serious comorbidity Other elevated white blood cell (WBC) count- Primary Secondary hypertension Other secondary hypertension, unspecified Type 2 diabetes mellitus with hyperglycemia, without long-term current use of insulin Hyperlipidemia LDL goal <100 Other and unspecified hyperlipidemia Atypical chest pain Other chest pain Pancreatic lesion (HHS-HCC) Class 1 obesity due to excess calories with serious comorbidity and body mass index (BMI) of 34.0 to 34.9 in adult Pill dysphagia- Primary Epigastric pain Abdominal pain, epigastric Type 2 diabetes mellitus with hyperglycemia, without long-term current use of insulin Hyperlipidemia LDL goal <100- Primary Other and unspecified hyperlipidemia Pill dysphagia Vaginal yeast infection Candidiasis of vulva and vagina Hepatic steatosis Other chronic nonalcoholic liver disease Secondary hypertension Other secondary hypertension, unspecified Encounter for screening mammogram for malignant neoplasm of breast- Primary Type 2 diabetes mellitus with hyperglycemia, without long-term current use of insulin Secondary hypertension Other secondary hypertension, unspecified Hyperlipidemia LDL goal <100 Other and unspecified hyperlipidemia Pill dysphagia Type 2 diabetes mellitus with hyperglycemia, without long-term current use of insulin Type 2 diabetes mellitus with hyperglycemia, without long-term current use of insulin- Primary Secondary hypertension- Primary Other secondary hypertension, unspecified Gastroesophageal reflux disease without esophagitis Esophageal reflux Type 2 diabetes mellitus with hyperglycemia, without long-term current use of insulin Hyperlipidemia LDL goal <100 Other and unspecified hyperlipidemia Hordeolum externum of left lower eyelid Upper respiratory tract infection, unspecified type- Primary 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, subsequent Class 2 severe obesity with body mass index (BMI) of 35 to 39.9 with serious comorbidity Bilateral carotid artery stenosis Occlusion and stenosis of carotid artery without mention of cerebral infarction Hyperlipidemia LDL goal <100 Other and unspecified hyperlipidemia Secondary hypertension Other secondary hypertension, unspecified Gastroesophageal reflux disease without esophagitis Esophageal reflux Type 2 diabetes mellitus with hyperglycemia, with long-term current use of insulin Abnormal urine odor- Primary Other nonspecific finding on examination of urine Acute cystitis without hematuria Secondary hypertension Other secondary hypertension, unspecified Pill dysphagia- Primary Secondary hypertension Other secondary hypertension, unspecified Type 2 diabetes mellitus with hyperglycemia, without long-term current use of insulin Hyperlipidemia LDL goal <100 Other and unspecified hyperlipidemia Gastroesophageal reflux disease without esophagitis Esophageal reflux Class 2 severe obesity with body mass index (BMI) of 35 to 39.9 with serious comorbidity Bilateral carotid artery stenosis Occlusion and stenosis of carotid artery without mention of cerebral infarction Vitamin D deficiency- Primary Secondary hypertension Other secondary hypertension, unspecified Type 2 diabetes mellitus without complication, with long-term current use of insulin Gastroesophageal reflux disease without esophagitis Esophageal reflux Type 2 diabetes mellitus with hyperglycemia, without long-term current use of insulin Hyperlipidemia LDL goal <100 Other and unspecified hyperlipidemia Right upper quadrant abdominal pain- Primary Left upper quadrant abdominal pain documented in this encounter [facility] Work Phone: Evaluation note* Diagnosis Secondary hypertension- Primary Other secondary hypertension, unspecified Type 2 diabetes mellitus with hyperglycemia, without long-term current use of insulin Hyperlipidemia LDL goal <100 Other and unspecified hyperlipidemia Atypical chest pain Other chest pain Class 2 severe obesity with body mass index (BMI) of 35 to 39.9 with serious comorbidity Other elevated white blood cell (WBC) count- Primary Secondary hypertension Other secondary hypertension, unspecified Type 2 diabetes mellitus with hyperglycemia, without long-term current use of insulin Hyperlipidemia LDL goal <100 Other and unspecified hyperlipidemia Atypical chest pain Other chest pain Pancreatic lesion (HHS-HCC) Class 1 obesity due to excess calories with serious comorbidity and body mass index (BMI) of 34.0 to 34.9 in adult Pill dysphagia- Primary Epigastric pain Abdominal pain, epigastric Type 2 diabetes mellitus with hyperglycemia, without long-term current use of insulin Hyperlipidemia LDL goal <100- Primary Other and unspecified hyperlipidemia Pill dysphagia Vaginal yeast infection Candidiasis of vulva and vagina Hepatic steatosis Other chronic nonalcoholic liver disease Secondary hypertension Other secondary hypertension, unspecified Encounter for screening mammogram for malignant neoplasm of breast- Primary Type 2 diabetes mellitus with hyperglycemia, without long-term current use of insulin Secondary hypertension Other secondary hypertension, unspecified Hyperlipidemia LDL goal <100 Other and unspecified hyperlipidemia Pill dysphagia Type 2 diabetes mellitus with hyperglycemia, without long-term current use of insulin Type 2 diabetes mellitus with hyperglycemia, without long-term current use of insulin- Primary Secondary hypertension- Primary Other secondary hypertension, unspecified Gastroesophageal reflux disease without esophagitis Esophageal reflux Type 2 diabetes mellitus with hyperglycemia, without long-term current use of insulin Hyperlipidemia LDL goal <100 Other and unspecified hyperlipidemia Hordeolum externum of left lower eyelid Upper respiratory tract infection, unspecified type- Primary 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, subsequent Class 2 severe obesity with body mass index (BMI) of 35 to 39.9 with serious comorbidity Bilateral carotid artery stenosis Occlusion and stenosis of carotid artery without mention of cerebral infarction Hyperlipidemia LDL goal <100 Other and unspecified hyperlipidemia Secondary hypertension Other secondary hypertension, unspecified Gastroesophageal reflux disease without esophagitis Esophageal reflux Type 2 diabetes mellitus with hyperglycemia, with long-term current use of insulin Abnormal urine odor- Primary Other nonspecific finding on examination of urine Acute cystitis without hematuria Secondary hypertension Other secondary hypertension, unspecified Pill dysphagia- Primary Secondary hypertension Other secondary hypertension, unspecified Type 2 diabetes mellitus with hyperglycemia, without long-term current use of insulin Hyperlipidemia LDL goal <100 Other and unspecified hyperlipidemia Gastroesophageal reflux disease without esophagitis Esophageal reflux Class 2 severe obesity with body mass index (BMI) of 35 to 39.9 with serious comorbidity Bilateral carotid artery stenosis Occlusion and stenosis of carotid artery without mention of cerebral infarction Vitamin D deficiency- Primary Secondary hypertension Other secondary hypertension, unspecified Type 2 diabetes mellitus without complication, with long-term current use of insulin Gastroesophageal reflux disease without esophagitis Esophageal reflux Type 2 diabetes mellitus with hyperglycemia, without long-term current use of insulin Hyperlipidemia LDL goal <100 Other and unspecified hyperlipidemia Right upper quadrant abdominal pain- Primary Left upper quadrant abdominal pain Left upper quadrant abdominal pain documented in this encounter [facility] Work Phone: Evaluation note* Diagnosis Secondary hypertension- Primary Other secondary hypertension, unspecified Type 2 diabetes mellitus with hyperglycemia, without long-term current use of insulin Hyperlipidemia LDL goal <100 Other and unspecified hyperlipidemia Atypical chest pain Other chest pain Class 2 severe obesity with body mass index (BMI) of 35 to 39.9 with serious comorbidity Other elevated white blood cell (WBC) count- Primary Secondary hypertension Other secondary hypertension, unspecified Type 2 diabetes mellitus with hyperglycemia, without long-term current use of insulin Hyperlipidemia LDL goal <100 Other and unspecified hyperlipidemia Atypical chest pain Other chest pain Pancreatic lesion (HHS-HCC) Class 1 obesity due to excess calories with serious comorbidity and body mass index (BMI) of 34.0 to 34.9 in adult Pill dysphagia- Primary Epigastric pain Abdominal pain, epigastric Type 2 diabetes mellitus with hyperglycemia, without long-term current use of insulin Hyperlipidemia LDL goal <100- Primary Other and unspecified hyperlipidemia Pill dysphagia Vaginal yeast infection Candidiasis of vulva and vagina Hepatic steatosis Other chronic nonalcoholic liver disease Secondary hypertension Other secondary hypertension, unspecified Encounter for screening mammogram for malignant neoplasm of breast- Primary Type 2 diabetes mellitus with hyperglycemia, without long-term current use of insulin Secondary hypertension Other secondary hypertension, unspecified Hyperlipidemia LDL goal <100 Other and unspecified hyperlipidemia Pill dysphagia Type 2 diabetes mellitus with hyperglycemia, without long-term current use of insulin Type 2 diabetes mellitus with hyperglycemia, without long-term current use of insulin- Primary Secondary hypertension- Primary Other secondary hypertension, unspecified Gastroesophageal reflux disease without esophagitis Esophageal reflux Type 2 diabetes mellitus with hyperglycemia, without long-term current use of insulin Hyperlipidemia LDL goal <100 Other and unspecified hyperlipidemia Hordeolum externum of left lower eyelid Upper respiratory tract infection, unspecified type- Primary 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, subsequent Class 2 severe obesity with body mass index (BMI) of 35 to 39.9 with serious comorbidity Bilateral carotid artery stenosis Occlusion and stenosis of carotid artery without mention of cerebral infarction Hyperlipidemia LDL goal <100 Other and unspecified hyperlipidemia Secondary hypertension Other secondary hypertension, unspecified Gastroesophageal reflux disease without esophagitis Esophageal reflux Type 2 diabetes mellitus with hyperglycemia, with long-term current use of insulin Abnormal urine odor- Primary Other nonspecific finding on examination of urine Acute cystitis without hematuria Secondary hypertension Other secondary hypertension, unspecified Pill dysphagia- Primary Secondary hypertension Other secondary hypertension, unspecified Type 2 diabetes mellitus with hyperglycemia, without long-term current use of insulin Hyperlipidemia LDL goal <100 Other and unspecified hyperlipidemia Gastroesophageal reflux disease without esophagitis Esophageal reflux Class 2 severe obesity with body mass index (BMI) of 35 to 39.9 with serious comorbidity Bilateral carotid artery stenosis Occlusion and stenosis of carotid artery without mention of cerebral infarction Vitamin D deficiency- Primary Secondary hypertension Other secondary hypertension, unspecified Type 2 diabetes mellitus without complication, with long-term current use of insulin Gastroesophageal reflux disease without esophagitis Esophageal reflux Type 2 diabetes mellitus with hyperglycemia, without long-term current use of insulin Hyperlipidemia LDL goal <100 Other and unspecified hyperlipidemia Right upper quadrant abdominal pain- Primary Left upper quadrant abdominal pain Acute left-sided thoracic back pain- Primary Pancreatic lesion (HHS-HCC) Claustrophobia Other isolated or specific phobias documented in this encounter [facility] Work Phone: Evaluation note* Diagnosis Secondary hypertension- Primary Other secondary hypertension, unspecified Type 2 diabetes mellitus with hyperglycemia, without long-term current use of insulin Hyperlipidemia LDL goal <100 Other and unspecified hyperlipidemia Atypical chest pain Other chest pain Class 2 severe obesity with body mass index (BMI) of 35 to 39.9 with serious comorbidity Other elevated white blood cell (WBC) count- Primary Secondary hypertension Other secondary hypertension, unspecified Type 2 diabetes mellitus with hyperglycemia, without long-term current use of insulin Hyperlipidemia LDL goal <100 Other and unspecified hyperlipidemia Atypical chest pain Other chest pain Pancreatic lesion (HHS-HCC) Class 1 obesity due to excess calories with serious comorbidity and body mass index (BMI) of 34.0 to 34.9 in adult Pill dysphagia- Primary Epigastric pain Abdominal pain, epigastric Type 2 diabetes mellitus with hyperglycemia, without long-term current use of insulin Hyperlipidemia LDL goal <100- Primary Other and unspecified hyperlipidemia Pill dysphagia Vaginal yeast infection Candidiasis of vulva and vagina Hepatic steatosis Other chronic nonalcoholic liver disease Secondary hypertension Other secondary hypertension, unspecified Encounter for screening mammogram for malignant neoplasm of breast- Primary Type 2 diabetes mellitus with hyperglycemia, without long-term current use of insulin Secondary hypertension Other secondary hypertension, unspecified Hyperlipidemia LDL goal <100 Other and unspecified hyperlipidemia Pill dysphagia Type 2 diabetes mellitus with hyperglycemia, without long-term current use of insulin Type 2 diabetes mellitus with hyperglycemia, without long-term current use of insulin- Primary Secondary hypertension- Primary Other secondary hypertension, unspecified Gastroesophageal reflux disease without esophagitis Esophageal reflux Type 2 diabetes mellitus with hyperglycemia, without long-term current use of insulin Hyperlipidemia LDL goal <100 Other and unspecified hyperlipidemia Hordeolum externum of left lower eyelid Upper respiratory tract infection, unspecified type- Primary 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, subsequent Class 2 severe obesity with body mass index (BMI) of 35 to 39.9 with serious comorbidity Bilateral carotid artery stenosis Occlusion and stenosis of carotid artery without mention of cerebral infarction Hyperlipidemia LDL goal <100 Other and unspecified hyperlipidemia Secondary hypertension Other secondary hypertension, unspecified Gastroesophageal reflux disease without esophagitis Esophageal reflux Type 2 diabetes mellitus with hyperglycemia, with long-term current use of insulin Abnormal urine odor- Primary Other nonspecific finding on examination of urine Acute cystitis without hematuria Secondary hypertension Other secondary hypertension, unspecified Pill dysphagia- Primary Secondary hypertension Other secondary hypertension, unspecified Type 2 diabetes mellitus with hyperglycemia, without long-term current use of insulin Hyperlipidemia LDL goal <100 Other and unspecified hyperlipidemia Gastroesophageal reflux disease without esophagitis Esophageal reflux Class 2 severe obesity with body mass index (BMI) of 35 to 39.9 with serious comorbidity Bilateral carotid artery stenosis Occlusion and stenosis of carotid artery without mention of cerebral infarction Vitamin D deficiency- Primary Secondary hypertension Other secondary hypertension, unspecified Type 2 diabetes mellitus without complication, with long-term current use of insulin Gastroesophageal reflux disease without esophagitis Esophageal reflux Type 2 diabetes mellitus with hyperglycemia, without long-term current use of insulin Hyperlipidemia LDL goal <100 Other and unspecified hyperlipidemia Right upper quadrant abdominal pain- Primary Left upper quadrant abdominal pain Acute left-sided thoracic back pain- Primary Pancreatic lesion (HHS-HCC) Claustrophobia Other isolated or specific phobias Type 2 diabetes mellitus with hyperglycemia, without long-term current use of insulin documented in this encounter [facility] Work Phone: Evaluation note* Diagnosis Secondary hypertension- Primary Other secondary hypertension, unspecified Type 2 diabetes mellitus with hyperglycemia, without long-term current use of insulin Hyperlipidemia LDL goal <100 Other and unspecified hyperlipidemia Atypical chest pain Other chest pain Class 2 severe obesity with body mass index (BMI) of 35 to 39.9 with serious comorbidity Other elevated white blood cell (WBC) count- Primary Secondary hypertension Other secondary hypertension, unspecified Type 2 diabetes mellitus with hyperglycemia, without long-term current use of insulin Hyperlipidemia LDL goal <100 Other and unspecified hyperlipidemia Atypical chest pain Other chest pain Pancreatic lesion (HHS-HCC) Class 1 obesity due to excess calories with serious comorbidity and body mass index (BMI) of 34.0 to 34.9 in adult Pill dysphagia- Primary Epigastric pain Abdominal pain, epigastric Type 2 diabetes mellitus with hyperglycemia, without long-term current use of insulin Hyperlipidemia LDL goal <100- Primary Other and unspecified hyperlipidemia Pill dysphagia Vaginal yeast infection Candidiasis of vulva and vagina Hepatic steatosis Other chronic nonalcoholic liver disease Secondary hypertension Other secondary hypertension, unspecified Encounter for screening mammogram for malignant neoplasm of breast- Primary Type 2 diabetes mellitus with hyperglycemia, without long-term current use of insulin Secondary hypertension Other secondary hypertension, unspecified Hyperlipidemia LDL goal <100 Other and unspecified hyperlipidemia Pill dysphagia Type 2 diabetes mellitus with hyperglycemia, without long-term current use of insulin Type 2 diabetes mellitus with hyperglycemia, without long-term current use of insulin- Primary Secondary hypertension- Primary Other secondary hypertension, unspecified Gastroesophageal reflux disease without esophagitis Esophageal reflux Type 2 diabetes mellitus with hyperglycemia, without long-term current use of insulin Hyperlipidemia LDL goal <100 Other and unspecified hyperlipidemia Hordeolum externum of left lower eyelid Upper respiratory tract infection, unspecified type- Primary 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, subsequent Class 2 severe obesity with body mass index (BMI) of 35 to 39.9 with serious comorbidity Bilateral carotid artery stenosis Occlusion and stenosis of carotid artery without mention of cerebral infarction Hyperlipidemia LDL goal <100 Other and unspecified hyperlipidemia Secondary hypertension Other secondary hypertension, unspecified Gastroesophageal reflux disease without esophagitis Esophageal reflux Type 2 diabetes mellitus with hyperglycemia, with long-term current use of insulin Abnormal urine odor- Primary Other nonspecific finding on examination of urine Acute cystitis without hematuria Secondary hypertension Other secondary hypertension, unspecified Pill dysphagia- Primary Secondary hypertension Other secondary hypertension, unspecified Type 2 diabetes mellitus with hyperglycemia, without long-term current use of insulin Hyperlipidemia LDL goal <100 Other and unspecified hyperlipidemia Gastroesophageal reflux disease without esophagitis Esophageal reflux Class 2 severe obesity with body mass index (BMI) of 35 to 39.9 with serious comorbidity Bilateral carotid artery stenosis Occlusion and stenosis of carotid artery without mention of cerebral infarction Vitamin D deficiency- Primary Secondary hypertension Other secondary hypertension, unspecified Type 2 diabetes mellitus without complication, with long-term current use of insulin Gastroesophageal reflux disease without esophagitis Esophageal reflux Type 2 diabetes mellitus with hyperglycemia, without long-term current use of insulin Hyperlipidemia LDL goal <100 Other and unspecified hyperlipidemia Right upper quadrant abdominal pain- Primary Left upper quadrant abdominal pain Acute left-sided thoracic back pain- Primary Pancreatic lesion (HHS-HCC) Claustrophobia Other isolated or specific phobias Pancreatic lesion (HHS-HCC) documented in this encounter [facility] Work Phone: History of Present illness Narrative* Pt was evaluated today for R medial epicondylitis. Pt presents with pain during most funcitonal movements of the elbow and wrist especially when completing overhead ADLs and repetitive elbow movements when cleaning. She demo mild deficits in elbow and wrist AROM compared to contralateral side. 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 She also demo decreased joint stability with increased pain during wrist/forearm/elbow MMT. Pt would benefit from regular outpatient OT x2/week for 4 weeks in order to improve AROM/PROM, strengthening, promote tissue healing and activity tolerance to improve functional independence in AD Ls/IADLs/work tasks. * Level of Complexity: low * Problems To Be Addressed: decreased ADL performance, decreased IADL performance, decreased work, decreased social participation, decreased congregational participation, decreased coordination, decreased motor skills, decreased knowledge of HEP, pain, decreased ROM/joint mobility and decreased strength. Re[facility] Work Phone: History of Present illness NarrativeAlina returns for complaints of burning sensation during voiding and also feeling red and irritated in the vaginal area. She has also been feeling pelvic pressure so thought it may be related to a UTI. She reports she had tried some OTC Monistat one time dose and some Vagisil with some relief of symptoms but is still irritated and hurts when she wipes. Reports that she will get yeast infections when her blood sugars tend to run high and she had been running in the 300s and Dr. Caballero had started her on insulin and is now running 280 this morning. She has a follow up scheduled with Dr. Caballero in 3 months.-[facility] 205 DO Work Phone: History of Present illness Narrative* I was requested by Dr. Caballero to evaluate this patient in consultation for cardiac assessment. * Patient 61-year-old non-smoker diabetic female with extensive prior medical history significant forhypertension, diabetes, hyperlipidemia, morbid obesity, GERD, TIA, atherosclerotic plaques on carotid arteries coming today for cardiovascular assessment. Patient endorses chest pain for many years. She describes this pain as a sharp pain, starting on the left side of her chest, radiating to her left arm and is self-limited. This pain is not related to exercise or extenuation activities. However,it is associated with shortness of breath. Patient denies palpitations, lightheadedness, headaches,fever, chills, orthopnea, paroxysmal nocturnal dyspnea or syncope. * Of note, the patient was sent from Dr. Caballero's office to the ED are recently due to chest pain. This pain was different from the pain that she used to have before, started on the right side of the chest, lasted for around 1 hour and was self-limited. She was worked up in the ED, with no new EKG abnormalities or troponin elevation. She was discharged and oriented to search for cardiovascular assessment. * Of note, the patient states that she was on Lipitor but she was feeling cough. After switching for pravastatin, the patient feels much better and is tolerating well the medication. * Her EKG showing normal sinus rhythm with Q waves in V1 to V3. * Her prior echo shows normal left ventricular ejection fraction of 60% and impaired relaxation of LVdiastolic filling. * Her carotid artery duplex ultrasound shows bilateral atherosclerotic plaques with <50% stenosis on both sides. * Her monitor showed normal sinus rhythm, from bradycardia just sinus tachycardia. The maximum heart rate was 150 and the minimum was 58 bpm's, the average heart rate was 81 bpm. There were 419 PVCs with a burden of 0.05%. There was 1 occurrence of ventricular tachycardia with the longest episode of 6 beats. There were 230 PSVC's with a burden of 0.03%. There were 6 occurrences of SVT with the longest episode of 8 beats. [id number] [address] Work Phone: History of Present illness Narrative* Patient 61-year-old non-smoker diabetic female with extensive prior medical history significant forhypertension, diabetes, hyperlipidemia, morbid obesity, GERD, TIA, atherosclerotic plaques on carotid arteries coming today for cardiovascular assessment. Patient endorses chest pain for many years. She describes this pain as a sharp pain, starting on the left side of her chest, radiating to her left arm and is self-limited. This pain is not related to exercise or extenuation activities. However,it is associated with shortness of breath. Patient denies palpitations, lightheadedness, headaches,fever, chills, orthopnea, paroxysmal nocturnal dyspnea or syncope. * Of note, the patient was sent from Dr. Caballero's office to the ED are recently due to chest pain. This pain was different from the pain that she used to have before, started on the right side of the chest, lasted for around 1 hour and was self-limited. She was worked up in the ED, with no new EKG abnormalities or troponin elevation. She was discharged and oriented to search for cardiovascular assessment. * Of note, the patient states that she was on Lipitor but she was feeling cough. After switching for pravastatin, the patient feels much better and is tolerating well the medication. * Her EKG showing normal sinus rhythm with Q waves in V1 to V3. * Her prior echo shows normal left ventricular ejection fraction of 60% and impaired relaxation of LVdiastolic filling. * Her carotid artery duplex ultrasound shows bilateral atherosclerotic plaques with <50% stenosis on both sides. * Her monitor showed normal sinus rhythm, from bradycardia just sinus tachycardia. The maximum heart rate was 150 and the minimum was 58 bpm's, the average heart rate was 81 bpm. There were 419 PVCs with a burden of 0.05%. There was 1 occurrence of ventricular tachycardia with the longest episode of 6 beats. There were 230 PSVC's with a burden of 0.03%. There were 6 occurrences of SVT with the longest episode of 8 beats. * Patient returns today reporting the same symptoms, that she believes that are more related to indigestion instead of cardiovascular symptoms. Her cardiology check up tests were normal. * CT calcium score of 6. * Nuclear stress test negative for ischemia. [id number] [address] Work Phone: History of Present illness Narrative* Kristen aCballero, - 05/23/2024 4:40 PM EDT Subjective Patient ID: Alina Patel is a 63 y.o. female who presents for URI (FACIAL PAIN DRAINAGE AND CONGESTION). URI Associated symptoms include congestion, coughing and sinus pain. Pertinent negatives include no chest pain, diarrhea, nausea, vomiting or wheezing. She is here today for evaluation of some upper respiratory symptoms. She states she has had some symptoms on and off for the past 2 weeks but over the last week it has intensified. She complains of pressure and points to the maxillary sinus region. She is having postnasal drip and when she expectorates mucus it is a thick green discoloration. We did conduct a full review of systems and based on today's evaluation I do feel she is suffering from a bacterial sinus infection. We talked about providing amoxicillin but she states in the past she really has responded best to azithromycin and therefore I will send that in. I have also recommended she take jhff-qrg-imnqpux plain guaifenesin. She will let us know if things or not going well. Will also help her get her mammogram arranged for next month as she does have it at an outside facility. Review of Systems Constitutional: Negative for fatigue. HENT: Positive for congestion, postnasal drip, sinus pressure and sinus pain. Respiratory: Positive for cough. Negative for chest tightness, shortness of breath and wheezing. Cardiovascular: Negative for chest pain, palpitations and leg swelling. Gastrointestinal: Negative for diarrhea, nausea and vomiting. Musculoskeletal: Negative for arthralgias. Objective Physical Exam Vitals and nursing note reviewed. Constitutional: General: She is not in acute distress. Appearance: Normal appearance. HENT: Head: Normocephalic and atraumatic. Eyes: Conjunctiva/sclera: Conjunctivae normal. Cardiovascular: Rate and Rhythm: Normal rate and regular rhythm. Heart sounds: Normal heart sounds. Pulmonary: Effort: No respiratory distress. Breath sounds: No wheezing. Abdominal: Palpations: Abdomen is soft. Tenderness: There is no abdominal tenderness. There is no guarding. Musculoskeletal: General: No swelling. Normal range of motion. Skin: General: Skin is warm and dry. Neurological: General: No focal deficit present. Mental Status: She is alert and oriented to person, place, and time. Psychiatric: Behavior: Behavior normal. Assessment/Plan Problem List Items Addressed This Visit ICD-10-CM Encounter for screening mammogram for malignant neoplasm of breast Z12.31 Relevant Orders BI mammo bilateral screening tomosynthesis Acute non-recurrent maxillary sinusitis - Primary J01.00 -She has classic features for sinus infection -We discussed prescribing amoxicillin but she indicates that she does very well and best by taking azithromycin. I am sending in the prescription and have also recommended adqw-wjp-xqtxjei plain guaifenesin as directed. She will call if her condition is not improving or does not clear Relevant Medications azithromycin (Zithromax) 250 mg tablet Patient instructions As we discussed I do feel that you need the help of an antibiotic today and we have decided to sendin the Z-Moncho. Please keep in mind that even though you take the Z-Moncho for 5 days if persist in yoursystem for 10. Please also purchase ygvk-kvs-rwjhqgg plain Mucinex or guaifenesin. This medicine does a great job and thinning the mucus so that it clears out of your nasal passages more clearly. Please call if you are not doing well. the staff will also give you a printout for your mammogram so that you can get it scheduled Kristen Caballero DO [facility]: Instructions* Patient Instructions* Kristen Caballero DO - 05/23/2024 4:40 PM EDT Patient instructions As we discussed I do feel that you need the help of an antibiotic today and we have decided to sendin the Z-Moncho. Please keep in mind that even though you take the Z-Moncho for 5 days if persist in yoursystem for 10. Please also purchase flhr-ujo-fvipkjn plain Mucinex or guaifenesin. This medicine does a great job and thinning the mucus so that it clears out of your nasal passages more clearly. Please call if you are not doing well. the staff will also give you a printout for your mammogram so that you can get it scheduled [facility]: Reason for referral (narrative)* Consultation (Routine) - Authorized Specialty Diagnoses / Procedures Referred By Maykel t Referred To Contact Primary Care Diagnoses Secondary hypertension Type 2 diabetes mellitus with hyperglycemia, without long-term current use of insulin ([facility]) Hyperlipidemia LDL goal <100 Atypical chest pain Procedures Follow Up In Primary Care Kristen Caballero DO [address] [facility] [place] [address] Referral ID Status Reason Start Date Expiration Date V isits Requested Visits Authorized [id number] Authorized 06/16/2022 12/13/2022 1 1 [facility] Work Phone: Reason for referral (narrative)* Consultation (Routine) - Authorized Specialty Diagnoses / Procedures Referred By Contac t Referred To Contact Primary Care Procedures Follow Up In Primary Care Kristen Caballero DO [address] [facility] [place] [address] Referral ID Status Reason Start Date Expiration Date V isits Requested Visits Authorized [id number] Authorized 01/13/2023 01/13/2024 1 1 * Imaging (Routine) - Authorized Specialty Diagnoses / Procedures Referred By Contac t Referred To Contact Radiology Diagnoses Epigastric pain Procedures US abdomen limited liver Kristen Caballero DO [address] [facility] [place] [address] Referral ID Status Reason Start Date Expiration Date Visits Requested Visits Authorized [id number] Authorized Perform Procedure 3 01/13/2024 1 1 * Imaging (Routine) - Authorized Specialty Diagnoses / Procedures Referred By Contac t Referred To Contact Radiology Diagnoses Other pneumothorax Procedures XR chest 2 views Kristen Caballero DO [address] [facility] [place] [address] Referral ID Status Reason Start Date Expiration Date Visits Requested Visits Authorized [id number] Authorized Perform Procedure 3 01/13/2024 1 1 [facility] Work Phone: Reason for referral (narrative)* Consultation (Routine) - Authorized Specialty Diagnoses / Procedures Referred By Jaidaac t Referred To Contact Orthopaedic Surgery / Orthopedic Surgery Diagnoses Sprain of left knee, initial encounter Procedures Follow Up In Orthopaedic Surgery Bebe Cee, EFFICIENCY EXPERT-OPERATING TABLE ASSEMBLER [address] [facility] [address] [place] [id number] Referral ID Status Reason Start Date Expiration Date V isits Requested Visits Authorized [id number] Authorized 03/30/2023 03/29/2024 1 1 * Imaging (Routine) - Authorized Specialty Diagnoses / Procedures Referred By Maykel t Referred To Contact Radiology Diagnoses Left knee pain, unspecified chronicity Procedures XR knee left 4+ views Bebe Cee, EFFICIENCY EXPERT-OPERATING TABLE ASSEMBLER [address] [facility] [address] [place] [id number] Referral ID Status Reason Start Date Expiration Date Visits Requested Visits Authorized [id number] Authorized Perform Procedure 03/26/2023 03/25/2024 1 1 [facility] Work Phone: Redfsm for referral (narrative)* Consultation (Routine) - Authorized Specialty Diagnoses / Procedures Referred By Maykel t Referred To Contact Pharmacy Diagnoses Type 2 diabetes mellitus with hyperglycemia, without long-term current use of insulin ([facility]) Kristen Caballero DO [address] [facility] Medical [facility] Building [place] [id number] [facility] [place] [place] [address] [phone] Referral ID Status Reason Start Date Expiration Date Visits Requested Visits Authorized [id number] Authorized Specialty Services Required 05/12/2023 05/11/2024 1 1 * Consultation (Routine) - Authorized Specialty Diagnoses / Procedures Referred By Maykel t Referred To Contact Primary Care Procedures Follow Up In Primary Care Kristen Caballero DO [address] [facility] [place] [address] Referral ID Status Reason Start Date Expiration Date V isits Requested Visits Authorized [id number] Authorized 05/12/2023 05/11/2024 1 1 * Imaging (Routine) - Authorized Specialty Diagnoses / Procedures Referred By Maykel t Referred To Contact Radiology Diagnoses Encounter for screening mammogram for malignant neoplasm of breast Procedures BI mammo bilateral screening tomosynthesis Kristen Caballero DO [address] [place] [address] Referral ID Status Reason Start Date Expiration Date Visits Requested Visits Authorized [id number] Authorized Perform Procedure 05/12/2023 05/11/2024 1 1 [facility] Work Phone: Reason for referral (narrative)* Consultation (Routine) - Authorized Specialty Diagnoses / Procedures Referred By Maykel pratt Referred To Contact Pharmacy Procedures Follow Up In Clinical Pharmacy Kristen Caballero DO [address] [place] [address] [facility] [place] [place] [address] [place] [address] Referral ID Status Reason Start Date Expiration Date V isits Requested Visits Authorized [id number] Authorized 05/29/2023 05/28/2024 1 1 [facility] Work Phone: Reyyrr for referral (narrative)* Consultation (Routine) - Authorized Specialty Diagnoses / Procedures Referred By Contac t Referred To Contact Pharmacy Procedures Follow Up In Clinical Pharmacy Kristen Caballero DO [address] [facility] [place] [address] [facility] [place] [address] [phone] Referral ID Status Reason Start Date Expiration Date V isits Requested Visits Authorized [id number] Authorized 06/26/2023 06/25/2024 1 1 [facility] Work Phone: Reason for referral (narrative)* Consultation (Routine) - Authorized Specialty Diagnoses / Procedures Referred By Contac t Referred To Contact Pharmacy Diagnoses Type 2 diabetes mellitus with hyperglycemia, without long-term current use of insulin Procedures Follow Up In Clinical Pharmacy Kristen Caballero DO [address] [place] [address] [facility] [address] [place] [phone] Referral ID Status Reason Start Date Expiration Date V isits Requested Visits Authorized [id number] Authorized 12/01/2023 11/30/2024 1 1 * Consultation (Routine) - Authorized Specialty Diagnoses / Procedures Referred By Contac t Referred To Contact Pharmacy Diagnoses Type 2 diabetes mellitus with hyperglycemia, without long-term current use of insulin Procedures Follow Up In Clinical Pharmacy Kristen Caballero DO [address] [place] [address] [facility] [address] [phone] Referral ID Status Reason Start Date Expiration Date V isits Requested Visits Authorized [id number] Authorized 12/01/2023 11/30/2024 1 1 [facility] Work Phone: Reagcs for referral (narrative)* Consultation (Routine) - Authorized Specialty Diagnoses / Procedures Referred By Contac t Referred To Contact Pharmacy Diagnoses Type 2 diabetes mellitus with hyperglycemia, without long-term current use of insulin Kristen Caballero DO [address] [phone] Referral ID Status Reason Start Date Expiration Date Visits Requested Visits Authorized [id number] Authorized Specialty Services Required 12/14/2024 1 1 T [facility] Work Phone: reason for referral (narrative)* Consultation (Routine) - Authorized Specialty Diagnoses / Procedures Referred By Contac t Referred To Contact Primary Care Procedures Follow Up In Primary Care Kristen Caballero DO [address] [phone] Phone: tel: fax: Referral ID Status Reason Start Date Expiration Date V isits Requested Visits Authorized [id number] Authorized 2023 12/20/2024 1 1 * Consultation (Routine) - Authorized Specialty Diagnoses / Procedures Referred By Contac t Referred To Contact Primary Care Procedures Follow Up In Primary Care Kristen Caballero DO [address] [address] Phone: tel: fax: Referral ID Status Reason Start Date Expiration Date V isits Requested Visits Authorized [id number] Authorized 2023 12/20/2024 1 1 T [facility] Work Phone: Reason for referral (narrative)* Consultation (Routine) - Authorized Specialty Diagnoses / Procedures Referred By Contac t Referred To Contact Pharmacy Diagnoses Type 2 diabetes mellitus with hyperglycemia, without long-term current use of insulin (Multi) Procedures Follow Up In Clinical Pharmacy Kristen Caballero DO [address] [facility] [place] [address] [facility] [address] [place] [address] Referral ID Status Reason Start Date Expiration Date V isits Requested Visits Authorized [id number] Authorized 09/08/2023 09/07/2024 1 1 [facility] Work Phone: Renvns for referral (narrative)* Consultation (Routine) - Authorized Specialty Diagnoses / Procedures Referred By Contac t Referred To Contact Primary Care Procedures Follow Up In Primary Care Kristen Caballero DO [address] [place] [address] Referral ID Status Reason Start Date Expiration Date V isits Requested Visits Authorized [id number] Authorized 09/11/2023 09/10/2024 1 1 * Medications - Pending Review Specialty Diagnoses / Procedures Referred By Contac t Referred To Contact Diagnoses Secondary hypertension Kristen Caballero DO [address] [place] [address] Referral ID Status Reason Start Date Expiration Date V isits Requested Visits Authorized [id number] Pending Review 1 1 [facility] Work Phone: Rehxfy for referral (narrative)* Consultation (Routine) - Authorized Specialty Diagnoses / Procedures Referred By Contac t Referred To Contact Pharmacy Diagnoses Type 2 diabetes mellitus with hyperglycemia, without long-term current use of insulin (Multi) Procedures Follow Up In Clinical Pharmacy Kristen Caballero DO [address] [facility] [place] [address] [facility] [address] [place] [phone] Referral ID Status Reason Start Date Expiration Date V isits Requested Visits Authorized [id number] Authorized 11/03/2023 11/02/2024 1 1 [facility] Work Phone: reason for referral (narrative)* Consultation (Routine) - Authorized Specialty Diagnoses / Procedures Referred By Contac t Referred To Contact Pharmacy Diagnoses Type 2 diabetes mellitus with hyperglycemia, without long-term current use of insulin (Multi) Procedures Follow Up In Clinical Pharmacy Kristen Caballero DO [address] [place] [address] [facility] [address] [place] [phone] Referral ID Status Reason Start Date Expiration Date V isits Requested Visits Authorized [id number] Authorized 11/16/2023 11/15/2024 1 1 [facility] Work Phone: reason for referral (narrative)* Consultation (Routine) - Authorized Specialty Diagnoses / Procedures Referred By Contac t Referred To Contact Primary Care Procedures Follow Up In Primary Care Kristen Caballero DO [address] [place] [address] Phone: tel: fax: Referral ID Status Reason Start Date Expiration Date V isits Requested Visits Authorized [id number] Authorized 03/29/2024 03/29/2025 1 1 [facility] Work Phone: Regjkl for referral (narrative)No reason for referral information [facility] Work Phone: Reason for referral (narrative)* Consultation (Routine) - Authorized Specialty Diagnoses / Procedures Referred By Maykel pratt Referred To Contact Primary Care Procedures Follow Up In Primary Care Kristen Caballero DO [address] [address] Phone: tel: fax: Referral ID Status Reason Start Date Expiration Date V isits Requested Visits Authorized [id number] Authorized 09/27/2024 09/27/2025 1 1 [facility] Work Phone: reason for visit Narrative* Initial Evaluation, Evaluation and Treatment. * Reason for Referral: Medial epicondylitis of right elbow (726.31) (M77.01). * Referred by Lucio Greenberg. [facility] Work Phone: reason for visit Narrative* Consultation (Routine) - Authorized Specialty Diagnoses / Procedures Referred By Maykel pratt Referred To Contact Pharmacy Diagnoses Type 2 diabetes mellitus with hyperglycemia, without long-term current use of insulin Procedures Follow Up In Clinical Pharmacy Kristen Caballero DO [address] [address] [facility] [place] [place] [address] [place] [address] Referral ID Status Reason Start Date Expiration Date V isits Requested Visits Authorized [id number] Authorized 12/01/2023 11/30/2024 1 1 [facility] Work Phone: reason for visit Narrative* Imaging (Routine) - Authorized Specialty Diagnoses / Procedures Referred By Maykel t Referred To Contact Radiology Diagnoses Left upper quadrant abdominal pain Procedures CT abdomen pelvis w IV contrast [place], Kristen S, DO [address] [address] Phone: tel: fax: Referral ID Status Reason Start Date Expiration Date Visits Requested Visits Authorized [id number] Authorized Perform Procedure 10/19/2024 11/19/2025 1 1 [facility] Work Phone: Reason for visit Narrative* Imaging (Routine) - Authorized Specialty Diagnoses / Procedures Referred By Maykel pratt Referred To Contact Radiology Diagnoses Pancreatic lesion ([facility]) Procedures MRCP pancreas w and wo IV contrast [place], Kristen S, DO [address] [address] Phone: tel: fax: Referral ID Status Reason Start Date Expiration Date Visits Requested Visits Authorized [id number] Authorized Perform Procedure 10/26/2024 11/26/2025 1 1 [facility] Work Phone: Summary Purpose Family History No Family History Records Found Mother Name Dates Details Family history of diabetes m ellitus(V18.0, Z83.3) Status:Active Father Name Dates Details Family history of diabetes m ellitus(V18.0, Z83.3) Status:Active Unknown Family Member Name Dates Details Family history of diabetes m ellitus: Mother, Father(V18.0, Z83.3) Status:Active Unknown Family Member Name Dates Details Family history of diabetes m ellitus: Mother, Father(V18.0, Z83.3) Status:Active Unknown Family Member Name Dates Details Family history of diabetes m ellitus: Mother, Father(V18.0, Z83.3) Status:Active Unknown Family Member Name Dates Details Family history of diabetes m ellitus: Mother, Father(V18.0, Z83.3) Status:Active Unknown Family Member Name Dates Details Family history of diabetes m ellitus: Mother, Father(V18.0, Z83.3) Status:Active Unknown Family Member Name Dates Details Family history of diabetes m ellitus: Mother, Father(V18.0, Z83.3) Status:Active Unknown Family Member Name Dates Details Family history of diabetes m ellitus: Mother, Father(V18.0, Z83.3) Status:Active Unknown Family Member Name Dates Details Family history of diabetes m ellitus: Mother, Father(V18.0, Z83.3) Status:Active Unknown Family Member Name Dates Details Family history of diabetes m ellitus: Mother, Father(V18.0, Z83.3) Status:Active Unknown Family Member Name Dates Details Family history of diabetes m ellitus: Mother, Father(V18.0, Z83.3) Status:Active Unknown Family Member Name Dates Details Family history of diabetes m ellitus: Mother, Father(V18.0, Z83.3) Status:Active Unknown Family Member Name Dates Details Family history of diabetes m ellitus: Mother, Father(V18.0, Z83.3) Status:Active Unknown Family Member Name Dates Details Family history of diabetes m ellitus: Mother, Father(V18.0, Z83.3) Status:Active Unknown Family Member Name Dates Details Family history of diabetes m ellitus: Mother, Father(V18.0, Z83.3) Status:Active Unknown Family Member Name Dates Details Family history of diabetes m ellitus: Mother, Father(V18.0, Z83.3) Status:Active Unknown Family Member Name Dates Details Family history of diabetes m ellitus: Mother, Father(V18.0, Z83.3) Status:Active Unknown Family Member Name Dates Details Family history of diabetes m ellitus: Mother, Father(V18.0, Z83.3) Status:Active Unknown Family Member Name Dates Details Family history of diabetes m ellitus: Mother, Father(V18.0, Z83.3) Status:Active Unknown Family Member Name Dates Details Family history of diabetes m ellitus: Mother, Father(V18.0, Z83.3) Status:Active Unknown Family Member Name Dates Details Family history of diabetes m ellitus: Mother, Father(V18.0, Z83.3) Status:Active Unknown Family Member Name Dates Details Family history of diabetes m ellitus: Mother, Father(V18.0, Z83.3) Status:Active Unknown Family Member Name Dates Details Family history of diabetes m ellitus: Mother, Father(V18.0, Z83.3) Status:Active Unknown Family Member Name Dates Details Family history of diabetes m ellitus: Mother, Father(V18.0, Z83.3) Status:Active Unknown Family Member Name Dates Details Family history of diabetes m ellitus: Mother, Father(V18.0, Z83.3) Status:Active Unknown Family Member Name Dates Details Family history of diabetes m ellitus: Mother, Father(V18.0, Z83.3) Status:Active Unknown Family Member Name Dates Details Family history of diabetes m ellitus: Mother, Father(V18.0, Z83.3) Status:Active Unknown Family Member Name Dates Details Family history of diabetes m ellitus: Mother, Father(V18.0, Z83.3) Status:Active Unknown Family Member Name Dates Details Family history of diabetes m ellitus: Mother, Father(V18.0, Z83.3) Status:Active Unknown Family Member Name Dates Details Family history of diabetes m ellitus: Mother, Father(V18.0, Z83.3) Status:Active Unknown Family Member Name Dates Details Family history of diabetes m ellitus: Mother, Father(V18.0, Z83.3) Status:Active Unknown Family Member Name Dates Details Family history of diabetes m ellitus: Mother, Father(V18.0, Z83.3) Status:Active Unknown Family Member Name Dates Details Family history of diabetes m ellitus: Mother, Father(V18.0, Z83.3) Status:Active Unknown Family Member Name Dates Details Family history of diabetes m ellitus: Mother, Father(V18.0, Z83.3) Status:Active Unknown Family Member Name Dates Details Family history of diabetes m ellitus: Mother, Father(V18.0, Z83.3) Status:Active Unknown Family Member Name Dates Details Family history of diabetes m ellitus: Mother, Father(V18.0, Z83.3) Status:Active Unknown Family Member Name Dates Details Family history of diabetes m ellitus: Mother, Father(V18.0, Z83.3) Status:Active Unknown Family Member Name Dates Details Family history of diabetes m ellitus: Mother, Father(V18.0, Z83.3) Status:Active Unknown Family Member Name Dates Details Family history of diabetes m ellitus: Mother, Father(V18.0, Z83.3) Status:Active Unknown Family Member Name Dates Details Family history of diabetes m ellitus: Mother, Father(V18.0, Z83.3) Status:Active Unknown Family Member Name Dates Details Family history of diabetes m ellitus: Mother, Father(V18.0, Z83.3) Status:Active Unknown Family Member Name Dates Details Family history of diabetes m ellitus: Mother, Father(V18.0, Z83.3) Status:Active Unknown Family Member Name Dates Details Family history of diabetes m ellitus: Mother, Father(V18.0, Z83.3) Status:Active Unknown Family Member Name Dates Details Family history of diabetes m ellitus: Mother, Father(V18.0, Z83.3) Status:Active Unknown Family Member Name Dates Details Family history of diabetes m ellitus: Mother, Father(V18.0, Z83.3) Status:Active Unknown Family Member Name Dates Details Family history of diabetes m ellitus: Mother, Father(V18.0, Z83.3) Status:Active Unknown Family Member Name Dates Details Family history of diabetes m ellitus: Mother, Father(V18.0, Z83.3) Status:Active Unknown Family Member Name Dates Details Family history of diabetes m ellitus: Mother, Father(V18.0, Z83.3) Status:Active Unknown Family Member Name Dates Details Family history of diabetes m ellitus: Mother, Father(V18.0, Z83.3) Status:Active Unknown Family Member Name Dates Details Family history of diabetes m ellitus: Mother, Father(V18.0, Z83.3) Status:Active Unknown Family Member Name Dates Details Family history of diabetes m ellitus: Mother, Father(V18.0, Z83.3) Status:Active Unknown Family Member Name Dates Details Family history of diabetes m ellitus: Mother, Father(V18.0, Z83.3) Status:Active Unknown Family Member Name Dates Details Family history of diabetes m ellitus: Mother, Father(V18.0, Z83.3) Status:Active Unknown Family Member Name Dates Details Family history of diabetes m ellitus: Mother, Father(V18.0, Z83.3) Status:Active Relationship Condition Age at Onset Recorded Date/T nery mother Diabetes mellitus Unknown Hypercholesterolemia Unknown Hypertension Unknown Arthritis Unknown father Diabetes mellitus Unknown Advance Directives No Advanced Directives Records Found Advance Directive Response Recorded Date/ Time Advance Directives No April 07, 2023 3:24pm Reason for Referral Status Reason Specialty Diagnoses / Procedures Referred By Contact Referred To Contact New Request Endocrinology, Diabetes & Metabolism Diagnoses Type 2 diabetes mellitus with complication, with long-term current use of insulin Paras Myers, DISH WASHER [address] [place] [address] David Thomas MD [address] [place] [address] Specialty Diagnoses / Procedures Referred By Contac t Referred To Contact Radiology Diagnoses Other pneumothorax Procedures XR chest 2 views Kristen Caballero, DO [address] [facility] [place] [address] Referral ID Status Reason Start Date Expiration Date Visits Requested Visits Authorized [id number] Authorized Perform Procedure 3 01/13/2024 1 1 Specialty Diagnoses / Procedures Referred By Contac t Referred To Contact Radiology Diagnoses Epigastric pain Procedures US abdomen limited liver Kristen Caballero, DO [address] [facility] [place] [address] Referral ID Status Reason Start Date Expiration Date Visits Requested Visits Authorized [id number] Authorized Perform Procedure 3 01/13/2024 1 1 Specialty Diagnoses / Procedures Referred By Contac t Referred To Contact Radiology Diagnoses Left knee pain, unspecified chronicity Procedures XR knee left 4+ views Bebe Cee, EFFICIENCY EXPERT-OPERATING TABLE ASSEMBLER [address] [facility] [place] [address] [place] [address] Referral ID Status Reason Start Date Expiration Date Visits Requested Visits Authorized [id number] Authorized Perform Procedure 03/26/2023 03/25/2024 1 1 Specialty Diagnoses / Procedures Referred By Contac t Referred To Contact Diagnoses Acute cystitis with hematuria Octavio Sadler, EFFICIENCY EXPERT-OPERATING TABLE ASSEMBLER [address] [place] [address] Referral ID Status Reason Start Date Expiration Date V isits Requested Visits Authorized [id number] Pending Review 1 1 Assessments Diagnosis Type 2 diabetes mellitus with complication, with long-term current use of insulin- Primary Chief Complaint PT HERE TODAY FOR R ELBOW PAIN, PT STATES STARTED ABOUT A MONTH AGO AND IT JUST DOESNT SEEM LIKE ITS LOCKING UP AND THEN IT POPS AND ITS JUST VERY PAINFUL.* Pt is here today with the C/O diarrhea, bloating, abd pain, fatigue and leg cramps (at night). Thisnote was generated by using [employer] software. It may contain errors in wording, punctuate, or spelling. * She is here today with a several week history of significant diarrhea. She is accompanied by her daughter. She explains that she has been having abdominal pain and also having frequent bouts of diarrhea. She denies any fevers and she denies seeing blood in the stool. She states she has had weight loss and she is feeling tired and weak. Her appetite has been diminished. We did conduct a full review of systems. 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 me that she had an cco & president told her once that she had a couple of strokes in her own. We conducted a full review of systems and based on all the things we discussed today we talked about the possibility of a TIA and we will do a work-up accordingly. We will order an MRI of thebrain. She states she is very claustrophobic so I am giving her prescription for lorazepam and she knows to have somebody drive her after taking the medicine. We will also check carotid studies and echocardiogram and a 7-day cardiac rn. She will take her aspirin daily without fail and I told her if symptoms came and states she needs to go to the emergency room. We will see her back in follow-up. * Pt is here today for a follow up on Her ECHO, Heart monitor, and MRI. This note was generated by using [employer] software. It may contain errors in wording, punctuate, or spelling. * She is here today for follow-up. She is looking well. Her blood pressure remains under good control. We went over the results of her echocardiogram as well as her MRI of the brain and carotid studies. Unfortunately her heart monitor test results were not back at the time of her visit and I have prom ised to call her as soon as it becomes available. The MRI looked good and they did not see any evidence of stroke or tumor. She also had a normal-appearing echocardiogram but she also had some plaquebuildup in the carotid arteries. It was reported to be less than 50% bilaterally. We talked about this and the fact that we should gain better control of her cholesterol. She has been on pravastatin for a long time because of its affordability. I will try to transition to the atorvastatin and she will call if this medication is not covered well. We also discussed continuing with a baby aspirin once a day and to go to the emergency room if she did ever develop any strokelike symptoms. We did conduct a review of systems and decided that she could safely return in October for her general checkup and diabetic checkup as well. * Pt is here today for a 4 month check up, Review labs. States Atorvastatin made her cough, has been taking pravastatin instead. This note was generated by using [employer] software. It may contain errors in wording, punctuate, or spelling. * She is here today for her 4-month checkup. When she arrived her blood pressure was a bit generous. She explains she had a rather challenging morning with her pet that had surgery. We rechecked it after she sat for a while and unfortunately it was still elevated. In the past her blood pressure has been excellent so we decided to have her do some monitoring at home and she will call with an update after the next several weeks. If necessary we would increase the dose of the amlodipine. We also conducted a full review of systems. Her lab work came back and unfortunately her hemoglobin A1c was high at 10.4. We briefly mentioned the challenges of the holiday season. We decided to increase the glipizide to twice daily and again she will give me an update on her readings. We also discussed the atorvastatin and she states that she developed a cough with the medication. She states she switch backto her pravastatin and her cough went away. We will give her a refill on a higher dose of pravastatin and we will check her cholesterol when she comes back in 3 months. Chief Complaint and Reason for Visit Chief Complaint Admit Date BACK PAIN April 25, 2024 12:55pm BACK PAIN May 17, 2024 9:0 8am BACK PAIN June 13, 2024 9:4 4am BACK PAIN July 11, 2024 9:25a m Back pain August 08, 2024 9:41a m Reason for Visit Admit Date Back pain April 25, 2024 12:55pm Neck pain April 25, 2024 12:55pm Segmental and somatic dysfunction of cer vical region April 25, 2024 12:55pm Segmental and somatic dysfunction of lum bar region April 25, 2024 12:55pm Segmental and somatic dysfunction of pel clara region April 25, 2024 12:55pm Segmental and somatic dysfunction of tho racic region April 25, 2024 12:55pm DDD (degenerative disc disease), thoraco lumbar April 25, 2024 12:55pm Back pain May 17, 2024 9:0 8am Segmental and somatic dysfunction of cer vical region May 17, 2024 9:08am Segmental and somatic dysfunction of lum bar region May 17, 2024 9:08am Segmental and somatic dysfunction of pel clara region May 17, 2024 9:08am Segmental and somatic dysfunction of tho racic region May 17, 2024 9:08am DDD (degenerative disc disease), thoraco lumbar May 17, 2024 9:08am Back pain June 13, 2024 9:4 4am Segmental and somatic dysfunction of cer vical region June 13, 2024 9:44am Segmental and somatic dysfunction of lum bar region June 13, 2024 9:44am Segmental and somatic dysfunction of pel clara region June 13, 2024 9:44am Segmental and somatic dysfunction of tho racic region June 13, 2024 9:44am DDD (degenerative disc disease), thoraco lumbar June 13, 2024 9:44am Back pain July 11, 2024 9:25a m Segmental and somatic dysfunction of cer vical region July 11, 2024 9:25am Segmental and somatic dysfunction of lum bar region July 11, 2024 9:25am Segmental and somatic dysfunction of pel clara region July 11, 2024 9:25am Segmental and somatic dysfunction of tho racic region July 11, 2024 9:25am DDD (degenerative disc disease), thoraco lumbar July 11, 2024 9:25am Segmental and somatic dysfunction of cer vical region August 08, 2024 9:41am Segmental and somatic dysfunction of lum bar region August 08, 2024 9:41am Segmental and somatic dysfunction of pel clara region August 08, 2024 9:41am Segmental and somatic dysfunction of tho racic region August 08, 2024 9:41am DDD (degenerative disc disease), thoraco lumbar August 08, 2024 9:41am Chief Complaint Admit Date BACK PAIN May 17, 2024 9:0 8am BACK PAIN June 13, 2024 9:4 4am BACK PAIN July 11, 2024 9:25a m Back pain August 08, 2024 9:41a m BACK PAIN September 05, 2024 9:44a m Reason for Visit Admit Date Back pain May 17, 2024 9:0 8am Segmental and somatic dysfunction of cer vical region May 17, 2024 9:08am Segmental and somatic dysfunction of lum bar region May 17, 2024 9:08am Segmental and somatic dysfunction of pel clara region May 17, 2024 9:08am Segmental and somatic dysfunction of tho racic region May 17, 2024 9:08am DDD (degenerative disc disease), thoraco lumbar May 17, 2024 9:08am Back pain June 13, 2024 9:4 4am Segmental and somatic dysfunction of cer vical region June 13, 2024 9:44am Segmental and somatic dysfunction of lum bar region June 13, 2024 9:44am Segmental and somatic dysfunction of pel clara region June 13, 2024 9:44am Segmental and somatic dysfunction of tho racic region June 13, 2024 9:44am DDD (degenerative disc disease), thoraco lumbar June 13, 2024 9:44am Back pain July 11, 2024 9:25a m Segmental and somatic dysfunction of cer vical region July 11, 2024 9:25am Segmental and somatic dysfunction of lum bar region July 11, 2024 9:25am Segmental and somatic dysfunction of pel clara region July 11, 2024 9:25am Segmental and somatic dysfunction of tho racic region July 11, 2024 9:25am DDD (degenerative disc disease), thoraco lumbar July 11, 2024 9:25am Back pain August 08, 2024 9:41a m Segmental and somatic dysfunction of cer vical region August 08, 2024 9:41am Segmental and somatic dysfunction of lum bar region August 08, 2024 9:41am Segmental and somatic dysfunction of pel clara region August 08, 2024 9:41am Segmental and somatic dysfunction of tho racic region August 08, 2024 9:41am DDD (degenerative disc disease), thoraco lumbar August 08, 2024 9:41am Segmental and somatic dysfunction of cer vical region September 05, 2024 9:44am Segmental and somatic dysfunction of lum bar region September 05, 2024 9:44am Segmental and somatic dysfunction of pel clara region September 05, 2024 9:44am Segmental and somatic dysfunction of tho racic region September 05, 2024 9:44am Chief Complaint Admit Date BACK PAIN June 13, 2024 9:4 4am BACK PAIN July 11, 2024 9:25a m Back pain August 08, 2024 9:41a m BACK PAIN September 05, 2024 9:44a m BACK PAIN October 03, 2024 9:5 2am Reason for Visit Admit Date Back pain June 13, 2024 9:4 4am Segmental and somatic dysfunction of cer vical region June 13, 2024 9:44am Segmental and somatic dysfunction of lum bar region June 13, 2024 9:44am Segmental and somatic dysfunction of pel clara region June 13, 2024 9:44am Segmental and somatic dysfunction of tho racic region June 13, 2024 9:44am DDD (degenerative disc disease), thoraco lumbar June 13, 2024 9:44am Back pain July 11, 2024 9:25a m Segmental and somatic dysfunction of cer vical region July 11, 2024 9:25am Segmental and somatic dysfunction of lum bar region July 11, 2024 9:25am Segmental and somatic dysfunction of pel clara region July 11, 2024 9:25am Segmental and somatic dysfunction of tho racic region July 11, 2024 9:25am DDD (degenerative disc disease), thoraco lumbar July 11, 2024 9:25am Back pain August 08, 2024 9:41a m Segmental and somatic dysfunction of cer vical region August 08, 2024 9:41am Segmental and somatic dysfunction of lum bar region August 08, 2024 9:41am Segmental and somatic dysfunction of pel clara region August 08, 2024 9:41am Segmental and somatic dysfunction of tho racic region August 08, 2024 9:41am DDD (degenerative disc disease), thoraco lumbar August 08, 2024 9:41am Back pain September 05, 2024 9:44a m Segmental and somatic dysfunction of cer vical region September 05, 2024 9:44am Segmental and somatic dysfunction of lum bar region September 05, 2024 9:44am Segmental and somatic dysfunction of pel clara region September 05, 2024 9:44am Segmental and somatic dysfunction of tho racic region September 05, 2024 9:44am DDD (degenerative disc disease), thoraco lumbar September 05, 2024 9:44am Segmental and somatic dysfunction of cer vical region October 03, 2024 9:52am Segmental and somatic dysfunction of lum bar region October 03, 2024 9:52am Segmental and somatic dysfunction of pel clara region October 03, 2024 9:52am Segmental and somatic dysfunction of tho racic region October 03, 2024 9:52am DDD (degenerative disc disease), thoraco lumbar October 03, 2024 9:52am Additional Source Comments INFORMATION SOURCE (unrecogn ized section and content) DATE CREATED AUTHOR 05/09/2018 [facility] DATE CREATED AUTHOR AUTHOR'S ORGANIZ ATION 10/12/2019 [facility] DATE CREATED AUTHOR AUTHOR'S ORGANIZ ATION 09/30/2020 [facility] DATE CREATED AUTHOR AUTHOR'S ORGANIZ ATION 09/30/2020 [facility] DATE CREATED AUTHOR AUTHOR'S ORGANIZ ATION 04/23/2021 [facility] DATE CREATED AUTHOR AUTHOR'S ORGANIZ ATION 08/10/2022 [employer] DATE CREATED AUTHOR AUTHOR'S ORGANIZ ATION 08/15/2022 [facility] DATE CREATED AUTHOR AUTHOR'S ORGANIZ ATION 09/22/2022 [facility] DATE CREATED AUTHOR AUTHOR'S ORGANIZ ATION 09/16/2023 [facility] DATE CREATED AUTHOR AUTHOR'S ORGANIZ ATION 10/06/2023 [facility] DATE CREATED AUTHOR AUTHOR'S ORGANIZ ATION 06/24/2024 [facility] DATE CREATED AUTHOR AUTHOR'S ORGANIZ ATION 10/04/2024 [facility] DATE CREATED AUTHOR AUTHOR'S ORGANIZ ATION 10/04/2024 [facility] DATE CREATED AUTHOR AUTHOR'S ORGANIZ ATION 10/21/2024 [facility] DATE CREATED AUTHOR AUTHOR'S ORGANIZ ATION 10/24/2024 [facility] DATE CREATED AUTHOR AUTHOR'S ORGANIZ ATION 10/28/[address] [facility] [place] [place] Ambulatory Reason for Visit (unrecogniz ed section and content) Reason Comments Follow-up 1 [facility] Specialty Diagnoses / Procedures Referred By Contac t Referred To Contact Primary Care Procedures Follow Up In Primary Care Kristen Caballero DO [address] [place] [address] Phone: tel: fax: Referral ID Status Reason Start Date Expiration Date V isits Requested Visits Authorized [id number] Authorized 10/19/2024 10/19/2025 1 1 Reason Comments Follow-up 6 [place] [facility] Referral ID Status Reason Start Date Expiration Date V isits Requested Visits Authorized [id number] Authorized 03/29/2024 03/29/2025 1 1 Reason Comments Follow-up Patient reports a st y on her left eye, present for 3 weeks. Specialty Diagnoses / Procedures Referred By Contac t Referred To Contact Primary Care Procedures Follow Up In Primary Care Kristen Caballero DO [address] [facility] [place] [address] Referral ID Status Reason Start Date Expiration Date V isits Requested Visits Authorized [id number] Authorized 05/12/2023 05/11/2024 1 1 Reason Comments Diabetes Specialty Diagnoses / Procedures Referred By Contac t Referred To Contact Pharmacy Procedures Follow Up In Clinical Pharmacy Kristen Caballero Jamila, DO [address] [place] [address] [facility] [place] [address] [place] [address] Referral ID Status Reason Start Date Expiration Date V isits Requested Visits Authorized [id number] Authorized 05/29/2023 05/28/2024 1 1 Reason Comments Diabetes type 2; 2000 onset. pt states checking bs once a day. pt states needs to have knee surgery and has to have A1c under 7.5n Specialty Diagnoses / Procedures Referred By Contac t Referred To Contact Radiology Diagnoses Other pneumothorax Procedures XR chest 2 views Kellie Caballeropresley Marino, DO [address] [place] [address] Referral ID Status Reason Start Date Expiration Date Visits Requested Visits Authorized [id number] Authorized Perform Procedure 3 01/13/2024 1 1 Specialty Diagnoses / Procedures Referred By Contac t Referred To Contact Radiology Diagnoses Epigastric pain Procedures US abdomen limited liver Kellie Caballeropresley Marino, DO [address] [place] [address] Referral ID Status Reason Start Date Expiration Date Visits Requested Visits Authorized [id number] Authorized Perform Procedure 3 01/13/2024 1 1 Reason Comments Follow-up Go over test results . Specialty Diagnoses / Procedures Referred By Contac t Referred To Contact Primary Care Procedures Follow Up In Primary Care Kellie Caballeropresley Marino, DO [address] [place] [address] Referral ID Status Reason Start Date Expiration Date V isits Requested Visits Authorized [id number] Authorized 01/13/2023 01/13/2024 1 1 Reason Comments Vaginal Itching VAGINAL ITCHING x 1 MONTH Specialty Diagnoses / Procedures Referred By Contac t Referred To Contact Radiology Diagnoses Left knee pain, unspecified chronicity Procedures XR knee left 4+ views Bebe Cee, EFFICIENCY EXPERT-OPERATING TABLE ASSEMBLER [address] [facility], [address] [place] [address] Referral ID Status Reason Start Date Expiration Date Visits Requested Visits Authorized [id number] Authorized Perform Procedure 03/26/2023 03/25/2024 1 1 Reason Comments Pain Patient states her p ain has been going on for about 3 weeks. She had a meniscus tear repair done by Dr. Jack about 2-3 years ago Reason Comments 6 month f/u Reason Comments Pain Pt had xray complete d on 03/27/2023 Specialty Diagnoses / Procedures Referred By Contac t Referred To Contact Orthopaedic Surgery / Orthopedic Surgery Diagnoses Sprain of left knee, initial encounter Procedures Follow Up In Orthopaedic Surgery Bebe Cee, EFFICIENCY EXPERT-OPERATING TABLE ASSEMBLER [address] [facility] [address] [place] [address] Referral ID Status Reason Start Date Expiration Date V isits Requested Visits Authorized [id number] Authorized 03/30/2023 03/29/2024 1 1 Reason Comments Follow-up Referral ID Status Reason Start Date Expiration Date Visits Re quested Visits Authorized [id number] Closed 09/24/2022 03/23/2023 1 1 Reason Comments PELVIC PRESSURE URGENCY, ODOR X1 MON TH ON/OFF Specialty Diagnoses / Procedures Referred By Contac t Referred To Contact Pharmacy Diagnoses Type 2 diabetes mellitus with hyperglycemia, without long-term current use of insulin ([facility] Kristen Caballero S, [address] [facility] [place] [id number] [facility] [place] [address] [place] [address] Referral ID Status Reason Start Date Expiration Date Visits Requested Visits Authorized [id number] Authorized Specialty Services Required 05/12/2023 05/11/2024 1 1 Reason Comments Vaginal Discharge Reason Comments Diabetes Specialty Diagnoses / Procedures Referred By Contac t Referred To Contact Pharmacy Diagnoses Type 2 diabetes mellitus with hyperglycemia, without long-term current use of insulin Procedures Follow Up In Clinical Pharmacy Kristen Caballero DO [address] [address] [facility] [place] [address] [facility] [address] [place] [address] Referral ID Status Reason Start Date Expiration Date V isits Requested Visits Authorized [id number] Authorized 11/03/2023 11/02/2024 1 1 Reason Comments UTI Frequency and hematu ashley X 1 day Referral ID Status Reason Start Date Expiration Date V isits Requested Visits Authorized [id number] Authorized 12/01/2023 11/30/2024 1 1 Reason Comments Follow-up Specialty Diagnoses / Procedures Referred By Contac t Referred To Contact Primary Care Procedures Follow Up In Primary Care Kristen Caballero DO Phone: tel: fax: Referral ID Status Reason Start Date Expiration Date V isits Requested Visits Authorized [id number] Pending Review 09/11/2023 09/10/2024 1 1 Specialty Diagnoses / Procedures Referred By Contac t Referred To Contact Pharmacy Diagnoses Type 2 diabetes mellitus with hyperglycemia, without long-term current use of insulin Kristen Caballero DO [address] [address] Phone: tel: fax: Referral ID Status Reason Start Date Expiration Date Visits Requested Visits Authorized [id number] Authorized Specialty Services Required 4 12/14/2024 1 1 Referral ID Status Reason Start Date Expiration Date Visits Requested Visits Authorized [id number] Authorized Specialty Services Required 4 2024 1 1 Referral ID Status Reason Start Date Expiration Date Visits Requested Visits Authorized [id number] Authorized Specialty Services Required 4 12/28/2024 1 1 Referral ID Status Reason Start Date Expiration Date Visits Requested Visits Authorized [id number] Authorized Specialty Services Required 01/05/2024 01/04/2025 1 1 Reason Comments Diabetes Specialty Diagnoses / Procedures Referred By Contac t Referred To Contact Pharmacy Diagnoses Type 2 diabetes mellitus with hyperglycemia, without long-term current use of insulin Kristen Caballero DO [address] [place] [id number] Phone: tel: fax: Referral ID Status Reason Start Date Expiration Date Visits Requested Visits Authorized [id number] Authorized Specialty Services Required 4 01/11/2025 1 1 Specialty Diagnoses / Procedures Referred By Contac t Referred To Contact Pharmacy Diagnoses Type 2 diabetes mellitus without complication, with long-term current use of insulin (Multi) Kristen Caballero DO [address] [place] [id number] Phone: tel: fax: Referral ID Status Reason Start Date Expiration Date Visits Requested Visits Authorized [id number] Authorized Specialty Services Required 4 01/18/2025 1 1 Referral ID Status Reason Start Date Expiration Date Visits Requested Visits Authorized [id number] Authorized Specialty Services Required 4 01/25/2025 1 1 Reason Comments UTI URINARY PRESSURE AND ODOR Specialty Diagnoses / Procedures Referred By Contac t Referred To Contact Pharmacy Diagnoses Type 2 diabetes mellitus without complication, with long-term current use of insulin (Multi) Kristen Caballero DO [address] [place] [address] Phone: tel: fax: Referral ID Status Reason Start Date Expiration Date Visits Requested Visits Authorized [id number] Authorized Specialty Services Required 02/02/2024 02/01/2025 1 1 Referral ID Status Reason Start Date Expiration Date V isits Requested Visits Authorized [id number] Authorized 06/26/2023 06/25/2024 1 1 Specialty Diagnoses / Procedures Referred By Contac t Referred To Contact Pharmacy Diagnoses Type 2 diabetes mellitus with hyperglycemia, without long-term current use of insulin (Multi) Procedures Follow Up In Clinical Pharmacy Kristen Caballero DO [address] [facility] [place] [address] [facility] [place] [address] [address] Referral ID Status Reason Start Date Expiration Date V isits Requested Visits Authorized [id number] Authorized 10/06/2023 10/05/2024 1 1 Referral ID Status Reason Start Date Expiration Date Visits Requested Visits Authorized [id number] Authorized Specialty Services Required 02/08/2025 1 1 Specialty Diagnoses / Procedures Referred By Contac t Referred To Contact Pharmacy Diagnoses Type 2 diabetes mellitus with hyperglycemia, without long-term current use of insulin (Multi) Procedures [place] [address] [facility] [place] [address] [place] [place], [place] [phone] Referral ID Status Reason Start Date Expiration Date V isits Requested Visits Authorized [id number] Authorized 11/16/2023 11/15/2024 1 1 Reason Comments Diabetes Specialty Diagnoses / Procedures Referred By Contac t Referred To Contact Pharmacy Diagnoses Type 2 diabetes mellitus with hyperglycemia, without long-term current use of insulin Procedures [place] [address] [facility] [place] [address] [place] [place], [place] [phone] Referral ID Status Reason Start Date Expiration Date V isits Requested Visits Authorized [id number] Authorized 11/16/2023 11/15/2024 1 1 Referral ID Status Reason Start Date Expiration Date Visits Requested Visits Authorized [id number] Authorized Specialty Services Required 4 02/15/2025 1 1 Referral ID Status Reason Start Date Expiration Date Visits Requested Visits Authorized [id number] Authorized Specialty Services Required 4 02/21/2025 1 1 Referral ID Status Reason Start Date Expiration Date Visits Requested Visits Authorized [id number] Authorized Specialty Services Required 03/03/2024 03/03/2025 1 1 Referral ID Status Reason Start Date Expiration Date Visits Requested Visits Authorized [id number] Authorized Specialty Services Required 03/10/2024 03/10/2025 1 1 Referral ID Status Reason Start Date Expiration Date Visits Requested Visits Authorized [id number] Authorized Specialty Services Required 03/17/2024 03/17/2025 1 1 Reason Comments Follow-up BLOOD PRESSURE AND B LOOD SUGAR READINGS Referral ID Status Reason Start Date Expiration Date V isits Requested Visits Authorized [id number] Pending Review 2023 12/20/2024 1 1 Referral ID Status Reason Start Date Expiration Date Visits Requested Visits Authorized [id number] Authorized Specialty Services Required 03/24/2024 03/24/2025 1 1 Referral ID Status Reason Start Date Expiration Date Visits Requested Visits Authorized [id number] Authorized Specialty Services Required 04/07/2024 04/07/2025 1 1 Reason Comments URI FACIAL PAIN DRAINAGE AND CONGESTION Specialty Diagnoses / Procedures Referred By Maykel pratt Referred To Contact Pharmacy Diagnoses Type 2 diabetes mellitus without complication, with long-term current use of insulin Kristen Caballero DO [address] [address] Phone: tel: fax: Referral ID Status Reason Start Date Expiration Date Visits Requested Visits Authorized [id number] Authorized Specialty Services Required 05/05/2024 05/05/2025 1 1 Referral ID Status Reason Start Date Expiration Date Visits Requested Visits Authorized [id number] Authorized Specialty Services Required 06/02/2024 06/02/2025 1 1 Referral ID Status Reason Start Date Expiration Date Visits Requested Visits Authorized [id number] Authorized Specialty Services Required 06/30/2024 06/30/2025 1 1 Referral ID Status Reason Start Date Expiration Date Visits Requested Visits Authorized [id number] Authorized Specialty Services Required 08/04/2024 08/04/2025 1 1 Reason Comments Follow-up LEFT SIDE UPPER ABD PAIN AND PINCH IN BACK Referral ID Status Reason Start Date Expiration Date Visits Requested Visits Authorized [id number] Authorized Specialty Services Required 09/29/2024 09/29/2025 1 1 Care Teams (unrecognized sec tion and content) Instrumental Teacher Relationship Specialty Start Date End Date Kristen Caballero DO [address] [place] [id number] PCP - General Internal Medicine 12/12/19 Instrumental Teacher Relationship Specialty Start Date End Date Kristen Caballero DO [address] [facility] [place] [address] PCP - General 09/14/19 Kristen Caballero DO [address] [facility] [place] [address] PCP - [employer] PCP 03/02/21 Instrumental Teacher Relationship Specialty Start Date End Date Kristen Caballero DO [address] [place] [address] PCP - General 09/14/19 Kristen Caballero DO [address] [place] [address] PCP - [employer] PCP 03/02/21 Kristen Caballero DO [address] [place] [address] PCP - [facility] Medicaid PCP 05/31/22 Instrumental Teacher Relationship Specialty Start Date End Date Kristen Caballero DO [address] [place] [address] [place] [address] PCP - General 09/14/19 Kristen Caballero DO [address] [place] [address] PCP - [employer] PCP 03/02/21 [place] [address] [place] [address] [facility] [place] [address] PCP - OPERATIONS CONTROLLER Medicaid PCP 05/31/22 Instrumental Teacher Relationship Specialty Start Date End Date Kristen Caballero DO [address] [facility] [place] [address] PCP - General 09/14/19 Kristen Caballero, [address] [facility] [place] [address] PCP - [employer] PCP 03/02/21 Kristen [facility]ero DO [address] [facility] [place] [phone] PCP - OPERATIONS CONTROLLER Medicaid PCP 05/31/22 Instrumental Teacher Relationship Specialty Start Date End Date [facility] [place] [phone] PCP - General 09/14/19 Kristen Caballero, [address] [facility] [place] [phone] PCP - [employer] PCP 03/02/21 Kristen Caballero, [address] [facility] [place], [place] [id number] PCP - OPERATIONS CONTROLLER Medicaid PCP 05/31/22 Instrumental Teacher Relationship Specialty Start Date End Date Kristen Caballero DO [address] [facility] [place], [place] [id number] PCP - General 09/14/19 Kristen Caballero, [address] [facility] [place] [address] PCP - [employer] PCP 03/02/21 Kristen Caballero, [address] [place] [address] Office [place] [phone] PCP - [facility] Medicaid PCP 05/31/22 Instrumental Teacher Relationship Specialty Start Date End Date Kristen Caballero DO [address] [place], [place] [phone] PCP - General 09/14/19 Kristen Caballero, [address] [place], [place] [phone] PCP - [employer] PCP 03/02/21 Kristen Caballero, [address] [place], [place] [phone] PCP - [facility] Medicaid PCP 05/31/22 Instrumental Teacher Relationship Specialty Start Date End Date Kristen Caballero DO [address] [place] [address] [place] [address] PCP - General 09/14/19 Kristen Caballero DO [address] [place] [address] [place] [address] PCP - [employer] PCP 03/02/21 Kristen Caballero DO [address] [facility] [place] [address] PCP - OPERATIONS CONTROLLER Medicaid PCP 05/31/22 Instrumental Teacher Relationship Specialty Start Date End Date Kristen Caballero DO [address] [facility] [place] [address] PCP - General 09/14/19 Kristen Caballero DO [address] [facility] [place] [phone] PCP - [employer] PCP 03/02/21 Kristen Caballero DO [address] [facility] [place] [address] PCP - OPERATIONS CONTROLLER Medicaid PCP 05/31/22 Instrumental Teacher Relationship Specialty Start Date End Date Kristen Caballero DO [address] [facility] [place] [phone] PCP - General 09/14/19 Kristen Caballero DO [address] [facility] [place] [phone] PCP - [employer] PCP 03/02/21 Kristen Caballero DO [address] [facility] [place] [address] PCP - OPERATIONS CONTROLLER Medicaid PCP 05/31/22 Instrumental Teacher Relationship Specialty Start Date End Date Kristen Caballero DO [address] [facility] [place] [phone] PCP - General 09/14/19 Kristen Caballero, [address] [place] [address] [place] [address] PCP - [employer] PCP 03/02/21 Kristen Caballero, [address] [place] [address] Medical Office [place] [phone] PCP - OPERATIONS CONTROLLER Medicaid PCP 05/31/22 Instrumental Teacher Relationship Specialty Start Date End Date Kristen Caballero DO [address] [place] [address] Office [place] [phone] PCP - General 09/14/19 Kristen Caballero, [address] [place] [address] Medical Office [place] [phone] PCP - [employer] PCP 03/02/21 Kristen Caballero, [address] [place] [address] Office [place] [phone] PCP - OPERATIONS CONTROLLER Medicaid PCP 05/31/22 Instrumental Teacher Relationship Specialty Start Date End Date Kristen Caballero DO [address] [place] [address] [place] [address] PCP - General 09/14/19 Kristen Caballero DO [address] [place] [address] [place] [address] PCP - [employer] PCP 03/02/21 Kristen Caballero DO [address] [facility] [place] [address] PCP - [facility] Medicaid PCP 05/31/22 Instrumental Teacher Relationship Specialty Start Date End Date Paras Garcia, OPERATING TABLE ASSEMBLER PCP - General Corporate Development Associate 03/23/13 Instrumental Teacher Relationship Specialty Start Date End Date Kristen Caballero DO PCP - General 09/14/19 Kristen Caballero DO [address] [address] PCP - [employer] PCP 03/02/21 Kristen Caballero DO [address] [place] [id number] PCP - [facility] Medicaid PCP 05/31/22 Instrumental Teacher Relationship Specialty Start Date End Date Kristen Caballero DO [address] [address] PCP - [employer]CO PCP 03/02/21 Kristen Caballero DO [address] [address] PCP - [facility] Medicaid PCP 05/31/22 Kristen Caballero DO [address] [address] PCP - General Internal Medicine 12/07/23 Instrumental Teacher Relationship Specialty Start Date End Date Kristen Caballero DO [address] [address] PCP - [employer] PCP 03/02/21 Kristen Caballero DO [address] [address] PCP - OPERATIONS CONTROLLER Medicaid PCP 05/31/22 Kristen Caballero DO [address] [address] PCP - General Internal Medicine 12/07/23 Instrumental Teacher Relationship Specialty Start Date End Date Kristen Caballero DO [address] [address] PCP - [employer] PCP 03/02/21 Kristen Caballero DO [address] [place] [phone] PCP - OPERATIONS CONTROLLER Medicaid PCP 05/31/22 Kristen Caballero DO [address] [address] PCP - General Internal Medicine 12/07/23 Instrumental Teacher Relationship Specialty Start Date End Date Kristen Caballero DO [address] [address] PCP - [employer] PCP 03/02/21 Kristen Caballero DO [address] [address] PCP - OPERATIONS CONTROLLER Medicaid PCP 05/31/22 Kristen Caballero DO [address] [address] PCP - General Internal Medicine 12/07/23 Instrumental Teacher Relationship Specialty Start Date End Date Kristen Caballero DO [address] [address] PCP - [employer] ACO PCP 03/02/21 Kristen Caballero DO [address] [address] PCP - OPERATIONS CONTROLLER Medicaid PCP 05/31/22 Kristen Caballero DO [address] [address] PCP - General Internal Medicine 12/07/23 Instrumental Teacher Relationship Specialty Start Date End Date Kristen Caballero DO [address] [address] PCP - [employer] PCP 03/02/21 Kristen Caballero DO [address] [address] PCP - OPERATIONS CONTROLLER Medicaid PCP 05/31/22 Kristen Caballero DO [address] [address] PCP - General Internal Medicine 12/07/23 Instrumental Teacher Relationship Specialty Start Date End Date Kristen Caballero DO [address] [address] PCP - [employer] PCP 03/02/21 Kristen Caballero DO [address] [address] PCP - OPERATIONS CONTROLLER Medicaid PCP 05/31/22 Kristen Caballero DO [address] [address] PCP - General Internal Medicine 12/07/23 Instrumental Teacher Relationship Specialty Start Date End Date Kristen Caballero DO [address] [address] PCP - [employer] PCP 03/02/21 Kristen Caballero DO [address] [address] PCP - OPERATIONS CONTROLLER Medicaid PCP 05/31/22 Kristen Caballero DO [address] [address] PCP - General Internal Medicine 12/07/23 Instrumental Teacher Relationship Specialty Start Date End Date Kristen Caballero DO [address] [address] PCP - [employer] PCP 03/02/21 Kristen Caballero DO [address] [address] PCP - OPERATIONS CONTROLLER Medicaid PCP 05/31/22 Kristen Caballero DO [address] [address] PCP - General Internal Medicine 12/07/23 Instrumental Teacher Relationship Specialty Start Date End Date Kristen Caballero DO [address] [address] PCP - [employer] PCP 03/02/21 Kristen Caballero DO [address] [address] PCP - OPERATIONS CONTROLLER Medicaid PCP 05/31/22 Kristen Caballero DO [address] [address] PCP - General Internal Medicine 12/07/23 Instrumental Teacher Relationship Specialty Start Date End Date Kristen Caballero DO [address] [address] PCP - [employer] PCP 03/02/21 Kristen Caballero DO [address] [address] PCP - OPERATIONS CONTROLLER Medicaid PCP 05/31/22 Kristen Caballero DO [address] [address] PCP - General Internal Medicine 12/07/23 Instrumental Teacher Relationship Specialty Start Date End Date Kristen Caballero DO [address] [address] PCP - [employer] PCP 03/02/21 Kristen Caballero DO [address] [address] PCP - OPERATIONS CONTROLLER Medicaid PCP 05/31/22 Kristen Caballero DO [address] [address] PCP - General Internal Medicine 12/07/23 Instrumental Teacher Relationship Specialty Start Date End Date Kristen Caballero DO [address] [facility] [place] [address] PCP - General 09/14/19 Kristen Caballero, [address] [facility] [place] [address] PCP - [employer] PCP 03/02/21 Kristen Caballero, [address] [facility] [place] [phone] PCP - [facility] Medicaid PCP 05/31/22 Instrumental Teacher Relationship Specialty Start Date End Date Kristen Caballero DO [address] [facility] [place] [phone] PCP - General 09/14/19 Kristen Caballero DO [address] [facility] [place] [phone] PCP - [employer] PCP 03/02/21 Kristen Caballero DO [address] [facility] [place] [id number] PCP - OPERATIONS CONTROLLER Medicaid PCP 05/31/22 Instrumental Teacher Relationship Specialty Start Date End Date Kristen Caballero DO [address] [facility] [place] [place], [place] [id number] PCP - General 09/14/19 Kristne Caballero DO [address] [facility] [place], [place] [id number] PCP - [employer] PCP 03/02/21 Kristen Caballero DO [address] [facility] [place] [address] PCP - [facility] Medicaid PCP 05/31/22 Instrumental Teacher Relationship Specialty Start Date End Date Kristen Caballero DO PCP - General 09/14/19 Kristen Caballero DO [address] [address] PCP - [facility] PCP 03/02/21 Kristen Caballero DO [address] [id number] PCP - [facility] Medicaid PCP 05/31/22 Instrumental Teacher Relationship Specialty Start Date End Date Kristen Caballero DO [address] [address] PCP - [employer] Medicaid PCP 05/31/22 Kristen Caballero DO [address] [id number] PCP - General Internal Medicine 12/07/23 Instrumental Teacher Relationship Specialty Start Date End Date Kristen Caballero DO [address] [address] PCP - [employer] Medicaid PCP 05/31/22 Kristen Caballero DO [address] [address] PCP - General Internal Medicine 12/07/23 Instrumental Teacher Relationship Specialty Start Date End Date Kristen Caballero DO [address] [place] [address] PCP - [employer] Medicaid PCP 05/31/22 Kristen Caballero DO [address] [place] [address] PCP - General Internal Medicine 12/07/23 Instrumental Teacher Relationship Specialty Start Date End Date Kristen Caballero DO [address] [place] [address] PCP - [employer] Medicaid PCP 05/31/22 Kristen Caballero DO [address] [address] PCP - General Internal Medicine 12/07/23 Instrumental Teacher Relationship Specialty Start Date End Date Kristen Caballero DO [address] [address] PCP - [employer] Medicaid PCP 05/31/22 Kristen Caballero DO [address] [place] [address] [address] PCP - General Internal Medicine 12/07/23 Instrumental Teacher Relationship Specialty Start Date End Date Kristen Caballero DO [address] [place] [id number] PCP - [employer] Medicaid PCP 05/31/22 Kristen Caballero DO [address] [place] [id number] PCP - General Internal Medicine 12/07/23 Instrumental Teacher Relationship Specialty Start Date End Date Kristen Caballero DO [address] [place] [address] PCP - [facility] Medicaid PCP 05/31/22 Kristen Caballero DO [address] [place] [address] PCP - General Internal Medicine 12/07/23 Kristen Caballero DO [address] [place] [address] PCP - [employer] Medicare Advantage PCP 01/31/24 Instrumental Teacher Relationship Specialty Start Date End Date Kristen Caballero DO [address] [place] [address] PCP - [facility] Medicaid PCP 05/31/22 Kristen Caballero DO [address] [place] [address] PCP - General Internal Medicine 12/07/23 Kristen Caballero DO [address] [place] [address] PCP - [employer]age PCP 01/31/24 Instrumental Teacher Relationship Specialty Start Date End Date Kristen Caballero DO [address] [place] [address] PCP - [facility] Medicaid PCP 05/31/22 Kristen Caballero DO [address] [place] [address] PCP - General Internal Medicine 12/07/23 Kristen Caballero DO [address] [place] [address] PCP - [place] Medicare Advantage PCP 01/31/24 Instrumental Teacher Relationship Specialty Start Date End Date Kristen Caballero DO [address] [address] PCP - [facility] Medicaid PCP 05/31/22 Kristen Caballero DO [address] [address] PCP - General Internal Medicine 12/07/23 Kristen Caballero DO [address] [address] PCP - [employer]vantage PCP 01/31/24 Kristen Caballero DO [address] [phone] PCP - [facility] PCP 01/31/24 Instrumental Teacher Relationship Specialty Start Date End Date Kristen Caballero DO [address] [address] PCP - General Internal Medicine 12/07/23 Kristen Caballero DO [address] [address] PCP - [employer] PCP 01/31/24 Kristen Caballero DO [address] [address] PCP - [employer] PCP 01/31/24 Team Status: Active Member Role Status Dates Dr. Kristen Caballero MD Primary Care Provider Active Team Status: Inactive Member Role Status Dates Dr. Kristen Caballero MD Primary Care Provider Active Start: April 25, 2024 End: April 25, 2024 Dr. Kristen Caballero MD Referring Provider Active Start: April 25, 2024 End: April 25, 2024 Dr. Xena Leonard DC Attending Provider Active S tart: April 25, 2024 End: April 25, 2024 Team Status: Inactive Member Role Status Dates Dr. Kristen Caballero MD Primary Care Provider Active Start: May 17, 2024 End: May 17, 2024 Dr. Kristen Caballero MD Referring Provider Active Start: May 17, 2024 End: May 17, 2024 Dr. Xena Leonard DC Attending Provider Active S tart: May 17, 2024 End: May 17, 2024 Team Status: Inactive Member Role Status Dates Dr. Kristen Caballero MD Primary Care Provider Active Start: June 13, 2024 End: June 13, 2024 Dr. Kristen Caballero MD Referring Provider Active Start: June 13, 2024 End: June 13, 2024 Dr. Xena Leonard DC Attending Provider Active S tart: June 13, 2024 End: June 13, 2024 Team Status: Inactive Member Role Status Dates Dr. Kristen Caballero MD Primary Care Provider Active Start: July 11, 2024 End: July 11, 2024 Dr. Kristen Caballero MD Referring Provider Active Start: July 11, 2024 End: July 11, 2024 Dr. Xena Leonard DC Attending Provider Active S tart: July 11, 2024 End: July 11, 2024 Team Status: Inactive Member Role Status Dates Dr. Kristen Caballero MD Primary Care Provider Active Start: August 08, 2024 End: August 08, 2024 Dr. Kristen Caballero MD Referring Provider Active Start: August 08, 2024 End: August 08, 2024 Dr. Xena Leonard DC Attending Provider Active S tart: August 08, 2024 End: August 08, 2024 Team Status: Active Member Role/Relationship Status Dates Dr. Kristen Caballero MD Primary Care Provider Active Team Status: Inactive Member Role/Relationship Status Dates Dr. Kristen Caballero MD Primary Care Provider Active Start: May 17, 2024 End: May 17, 2024 Dr. Kristen Caballero MD Referring Provider Active Start: May 17, 2024 End: May 17, 2024 Dr. Xena Leonard DC Attending Provider Active S tart: May 17, 2024 End: May 17, 2024 Team Status: Inactive Member Role/Relationship Status Dates Dr. Kristen Caballero MD Primary Care Provider Active Start: June 13, 2024 End: June 13, 2024 Dr. Kristen Caballero MD Referring Provider Active Start: June 13, 2024 End: June 13, 2024 Dr. Xena Leonard DC Attending Provider Active S tart: June 13, 2024 End: June 13, 2024 Team Status: Inactive Member Role/Relationship Status Dates Dr. Kristen Caballero MD Primary Care Provider Active Start: July 11, 2024 End: July 11, 2024 Dr. Kristen Caballero MD Referring Provider Active Start: July 11, 2024 End: July 11, 2024 Dr. Xena Leonard DC Attending Provider Active S tart: July 11, 2024 End: July 11, 2024 Team Status: Inactive Member Role/Relationship Status Dates Dr. Kristen Caballero MD Primary Care Provider Active Start: August 08, 2024 End: August 08, 2024 Dr. Kristen Caballero MD Referring Provider Active Start: August 08, 2024 End: August 08, 2024 Dr. Xena Leonard DC Attending Provider Active S tart: August 08, 2024 End: August 08, 2024 Team Status: Inactive Member Role/Relationship Status Dates Dr. Kristen Caballero MD Primary Care Provider Active Start: September 05, 2024 End: September 05, 2024 Dr. Kristen Caballero MD Referring Provider Active Start: September 05, 2024 End: September 05, 2024 Dr. Xena Leonard DC Attending Provider Active S tart: September 05, 2024 End: September 05, 2024 Instrumental Teacher Relationship Specialty Start Date End Date Kristen Caballero DO [address] [address] PCP - General Internal Medicine 12/07/23 Kristen Caballero DO [address] [address] PCP - [place] Medicare [employer]vantage PCP 01/31/24 Kristen Caballero DO [address] [address] PCP - [employer] PCP 01/31/24 Instrumental Teacher Relationship Specialty Start Date End Date Kristen Caballero DO [address] [address] PCP - General Internal Medicine 12/07/23 Kristen Caballero DO [address] [address] PCP - [place] [employer]age PCP 01/31/24 Kristen Caballero DO [address] [address] PCP - [employer] PCP 01/31/24 Team Status: Inactive Member Role/Relationship Status Dates Dr. Kristen Caballero MD Primary Care Provider Active Start: June 13, 2024 End: June 13, 2024 Dr. Kristen Caballero MD Referring Provider Active Start: June 13, 2024 End: June 13, 2024 Dr. Xena Leonard DC Attending Provider Active S tart: June 13, 2024 End: June 13, 2024 Team Status: Inactive Member Role/Relationship Status Dates Dr. Kristen Caballero MD Primary Care Provider Active Start: July 11, 2024 End: July 11, 2024 Dr. Kristen Caballero MD Referring Provider Active Start: July 11, 2024 End: July 11, 2024 Dr. Xena Leonard DC Attending Provider Active S tart: July 11, 2024 End: July 11, 2024 Team Status: Inactive Member Role/Relationship Status Dates Dr. Kristen Caballero MD Primary Care Provider Active Start: August 08, 2024 End: August 08, 2024 Dr. Kristen Caballero MD Referring Provider Active Start: August 08, 2024 End: August 08, 2024 Dr. Xena Leonard DC Attending Provider Active S tart: August 08, 2024 End: August 08, 2024 Team Status: Inactive Member Role/Relationship Status Dates Dr. Kristen Caballero MD Primary Care Provider Active Start: September 05, 2024 End: September 05, 2024 Dr. Kristen Caballero MD Referring Provider Active Start: September 05, 2024 End: September 05, 2024 Dr. Xena Leonard DC Attending Provider Active S tart: September 05, 2024 End: September 05, 2024 Team Status: Inactive Member Role/Relationship Status Dates Dr. Kristen Caballero MD Primary Care Provider Active Start: October 03, 2024 End: October 03, 2024 Dr. Kristen Caballero MD Referring Provider Active Start: October 03, 2024 End: October 03, 2024 Dr. Xena Leonard DC Attending Provider Active S tart: October 03, 2024 End: October 03, 2024 Instrumental Teacher Relationship Specialty Start Date End Date Kristen Caballero DO [address] [address] PCP - General Internal Medicine 12/07/23 Kristen Caballero DO [address] [address] PCP - [employer] Medicare Advantage PCP 01/31/24 Kristen Caballero DO [address] [address] PCP - [facility] PCP 01/31/24 Instrumental Teacher Relationship Specialty Start Date End Date Kristen Caballero DO [address] [address] PCP - General Internal Medicine 12/07/23 Kristen Caballero DO [address] [address] PCP - [employer] Medicare Advantage PCP 01/31/24 Kristen Caballero DO [address] [address] PCP - [employer] PCP 01/31/24 Instrumental Teacher Relationship Specialty Start Date End Date Kristen Caballero DO [address] [address] PCP - General Internal Medicine 12/07/23 Kristen Caballero DO [address] [address] PCP - [employer] Advantage PCP 01/31/24 Kristen Caballero DO [address] [address] PCP - [employer] PCP 01/31/24 Instrumental Teacher Relationship Specialty Start Date End Date Kristen Caballero DO [address] [address] PCP - General Internal Medicine 12/07/23 Kristen Caballero DO [address] [address] PCP - [employer] Medicare Advantage PCP 01/31/24 Kristen Caballero DO [address] [address] PCP - [employer] PCP 01/31/24 Instrumental Teacher Relationship Specialty Start Date End Date Kristen Caballero DO [address] [address] PCP - General Internal Medicine 12/07/23 Kristen Caballero DO [address] [address] PCP - [employer] Medicare Advantage PCP 01/31/24 Kristen Caballero DO [address] [address] PCP - [employer] PCP 01/31/24 <item><item><item> Privacy Markings (unrecogniz ed section and content) Section Author: Maryana Kennedy PROHIBITION ON REDISCLOSURE OF CONFIDENTIAL INFORMATION This notice accompanies a disclosure of information concerning a client made to you with the consent of such client. Section Author: Maryana Kennedy PROHIBITION ON REDISCLOSURE OF CONFIDENTIAL INFORMATION This notice accompanies a disclosure of information concerning a client made to you with the consent of such client. Section Author: Maryana Kennedy PROHIBITION ON REDISCLOSURE OF CONFIDENTIAL INFORMATION This notice accompanies a disclosure of information concerning a client made to you with the consent of such client. Source Comments (unrecognize d section and content) In the event this informatio n is protected by the Federal Confidentiality of Alcohol and Drug Abuse Patient Records regulations: The Federal rules restrict any use of the information to criminally investigate or prosecute any alcohol or drug abuse patient.[facility] FOR RECORDS PERTAINING TO PATIENTS WHO ARE OR HAVE BEEN ENROLLED IN A CHEMICAL DEPENDENCY/SUBSTANCEABUSE PROGRAM, SOME INFORMATION MAY BE OMITTED. This clinical summary was aggregated from multiple sources. Caution should be exercised in using it in the provision of clinical care. This summary normalizes information from multiple sources, and as a consequence, information in this document may materially change the coding, format and clinical context of patient data. In addition, data may be omitted in some cases. CLINICAL DECISIONS SHOULD BE BASED ON THE PRIMARY CLINICAL RECORDS. [facility] [employer] [facility]. provides no warranty or guarantee of the accuracy or completeness of information in this document.
[2024-10-28 23:00] VITALS: BP 131/81; PULSE 16; RESP 14; O2SAT 95
[2024-10-28 23:09] LABS: D-Dimer Quantitative (DVT/PE) 0.29 FEU/ug/m (0.27-0.49)
[2024-10-28] MEDS: 0.9% Normal Saline (1000mL) 1,000 ML 999 ML IV (23:22)
[2024-10-28 23:39] LABS: Mucous, Urine 0 SEEN /hpf (<or=2+); Red Blood Cells-Urine 0 SEEN /hpf (0-5)
[2024-10-28 23:52] LABS: Color, Urine Yellow (Yellow); Glucose, Dipstick 250 mg/dl (Normal); Ketone-Dipstick 5 mg/dl (Negative); Leukocyte Esterase-Dipstick 25 /ul (Negative); Nitrite-Dipstick Negative (Negative); Occult Blood-Urine Negative /ul (Negative); Protein-Dipstick 15 mg/dl (Negative); Specific Gravity, Urine 1.020 (1.002-1.030); Urine Bilirubin Dipstick Negative (Negative)
[2024-10-29] VITALS: BP 131/81; PULSE 77; RESP 16; O2SAT 96
[2024-10-29 00:11] LABS: Troponin T High Sens 2 HR < 6 ng/L (<=14)
[2024-10-29 00:38] LABS: Squamous Epithelial Cells - UA 0-5 SEEN /hpf (5-10)
[2024-10-29 01:06] VITALS: BP 125/57; PULSE 79; RESP 16; TEMP 36.7; O2SAT 96
== END 2024-10-29 01:10 | disposition home or self-care (01) ==
PROVIDERS: Emergency Provider Surgery; PCP Internal Medicine; Visit Provider Surgery
DX: R07.9 Chest pain, unspecified (principal); E11.65 Type 2 diabetes mellitus with hyperglycemia; Z79.4 Long term (current) use of insulin; R55 Syncope and collapse; E86.0 Dehydration; Z79.84 Long term (current) use of oral hypoglycemic drugs; Z79.899 Other long term (current) drug therapy; Z79.82 Long term (current) use of aspirin; E78.5 Hyperlipidemia, unspecified; I10 Essential (primary) hypertension
CPT/HCPCS: 71045; 80048; 81001; 84484; 85025; 85379; 93005; 96360; 99285; A4216

== ENCOUNTER 2025-01-12 12:23 | Outpatient (CLI) | payer MEDICARE, SELFPAY ==
--- NOTE | 2025-01-12 12:25 | STEWCON_ITS ---
Reason For Study Reason For Study: Near Syncope Stress Results Protocol: Dobtuamine Stress Echo Maximum Predicted HR: 154 bpm Target HR: 131 bpm % Maximum Predicted HR: 88 % DurationHeart Rate Stage (mm:ss) (bpm) BP Dose Comment Baseline 86 147/87 Patient denies chest pain Stage 1 4:30 113 170/6710.00patient denies chest pain Stage 2 5:10 136 151/[id number] denies chest pain Recovery 98 154/76 Patient denies chest pain Stress Duration: 9:40 mm:ss Maximum Stress HR: 136 bpm Baseline Echocardiogram Findings Stress Echo Wall motion Data Resting WM Intermediate WM Stress WM ECHO/Stress Test Echo W/Contrast Interpretation Summary Dobutamine stress echo. 64-year-old lady with a history of near-syncope. Resting EKG demonstrates normal sinus rhythm with a rate of 86 bpm. Resting blo od pressure is 147/87 mmHg. The patient underwent dobutamine infusion with a heart rate rising to a peak of 144 bpm which was 93% max impacted heart rate. At rest there were no ST or T wave changes noted suggest ischemia at peak infusion no ST or T wave changes with no distress ischemia. No clinical angina was noted. The peak blood pressure was 17 3/86 mmHg. Stress echocardiogram. The stress echocardiogram was performed with and without dobutamine infusion. At resting the estimated ejection fraction was 55% increasing to 60% at low-dose and then 70% at peak dose. No wall motion abnormalities were noted to suggest ischemia. Conclusion: Dobutamine stress echocardiogram with no evidence of ischemia and normal restin g and stress echocardiographic imaging Ordering Physician: Ted Ballard Referring Physician: Ted Ballard Performed By: Shraddha Artis RCS
== END 2025-01-12 23:59 | disposition home or self-care (01) ==
LOC: CVS 12:24
PROVIDERS: PCP Internal Medicine; Referring Provider Internal Medicine Cardiovascular Disease; Visit Provider Internal Medicine Cardiovascular Disease
DX: R55 Syncope and collapse (principal); E11.9 Type 2 diabetes mellitus without complications; E78.00 Pure hypercholesterolemia, unspecified; I10 Essential (primary) hypertension; K21.9 Gastro-esophageal reflux disease without esophagitis; R07.9 Chest pain, unspecified; R06.02 Shortness of breath
CPT/HCPCS: 93017; 93350; Q9957; A4216; C8928